=== PATIENT | female | born 1935 | race Caucasian/White ===

== ENCOUNTER → 2022-09-14 | Outpatient (CLI) | payer MEDICARE ==
--- NOTE | 2022-09-14 14:30 | US ---
EXAMINATION TYPE: US venous doppler duplex LE LT DATE OF EXAM: 09/14/2022 2:12 PM COMPARISON: NONE CLINICAL HISTORY: Left lower extremity swelling SIDE PERFORMED: Left TECHNIQUE: The lower extremity deep venous system is examined utilizing real time linear array sonog richard with graded compression, doppler sonography and color-flow sonography. VESSELS IMAGED: Common Femoral Vein Deep Femoral Vein Greater Saphenous Vein * Femoral Vein Popliteal Vein Small Saphenous Vein * Proximal Calf Veins (* superficial vessels) Left Leg: Negative for DVT Grayscale, color doppler, spectral doppler imaging performed of the deep veins of the left lower extr emity. There is normal flow, compressibility, vascular waveforms. IMPRESSION: No ultrasound evidence for acute DVT in the left lower extremity.
== END | disposition home or self-care (01) ==
LOC: RADUSWWP 13:08
PROVIDERS: ATTEND Family Medicine
DX: R22.42 Localized swelling, mass and lump, left lower limb (principal)

== ENCOUNTER 2024-03-28 14:54 | Emergency (ER) | payer MEDICARE ==
--- NOTE | 2024-03-28 15:42 | ED ---
Fall HPI - General Chief Complaint: Fall Stated Complaint: Fall, no thinners Time Seen by Provider: 03/28/24 15:18 Source: patient, RN notes reviewed Mode of arrival: ambulatory - History of Present Illness Initial Comments: Patient is an 88-year-old female presents emergency department chief complaint of a fall. Patient states that she was outside gardening when she tripped over brick pavers hitting her head and falling on her right wrist. Patient denies loss of consciousness, blurry vision, double vision, headaches, nausea or vomiting. Patient is not on any blood thinners. She is complaining of left- sided rib pain and mild shortness of breath in addition to right-sided thumb and wrist pain. patient's last tetanus vaccine was approximately a few months ago - Related Data Allergies Allergy/AdvReac Type Severity Reaction Status Date / Time No Known Allergies Allergy Verified 03/28/24 15:02 Review of Systems ROS Statement: Those systems with pertinent positive or pertinent negative responses have been documented in the HPI. ROS Other: All systems not noted in ROS Statement are negative. Past Medical History Additional Past Medical History / Comment(s): slight deafness History of Any Multi-Drug Resistant Organisms: None Reported Past Surgical History: Hysterectomy Past Psychological History: No Psychological Hx Reported Smoking Status: Former smoker Past Alcohol Use History: Occasional Past Drug Use History: None Reported General Exam Limitations: no limitations General appearance: alert, in no apparent distress Head exam: Present: atraumatic, normocephalic, normal inspection, other (1 cm skin avulsion, non ammendable to suture or staple repair due to size) Eye exam: Present: normal appearance, PERRL, EOMI. Absent: scleral icterus, conjunctival injection, periorbital swelling ENT exam: Present: normal exam, mucous membranes moist Neck exam: Present: normal inspection. Absent: tenderness, meningismus, lymphadenopathy Respiratory exam: Present: normal lung sounds bilaterally, chest wall tenderness (lateral). Absent: respiratory distress, wheezes, rales, rhonchi, stridor, decreased breath sounds Cardiovascular Exam: Present: regular rate, normal rhythm, normal heart sounds. Absent: systolic murmur, diastolic murmur, rubs, gallop, clicks GI/Abdominal exam: Present: soft, normal bowel sounds. Absent: distended, tenderness, guarding, rebound, rigid Right Forearm Wrist exam: Present: tenderness, swelling, ecchymosis Hand Wrist exam: Present: tenderness, swelling, laceration (2 avuslion injuries of first digit), ecchymosis Neuro motor exam: Present: wrist extension intact, thumb opposition intact Vascular: Absent: vascular compromise Back exam: Present: normal inspection Neurological exam: Present: alert, oriented X3, CN II-XII intact Psychiatric exam: Present: normal affect, normal mood Skin exam: Present: warm, dry, intact, normal color. Absent: rash Course Vital Signs 03/28/24 03/28/24 14:56 19:31 Temperature 97.9 F 98.1 F Pulse Rate 93 81 Respiratory 18 16 Rate Blood Pressure 153/68 156/87 O2 Sat by Pulse 96 98 Oximetry Medical Decision Making - Medical Decision Making Was pt. sent in by a medical professional or institution (, PA, CHIEF DIETITIAN, urgent care, hospital, or snf...) When possible be specific @ -No Did you speak to anyone other than the patient for history (EMS, parent, family, police, friend...)? What history was obtained from this source @ -No Did you review nursing and triage notes (agree or disagree)? Why? @ -I reviewed and agree with nursing and triage notes Were old charts reviewed (outside hosp., previous admission, EMS record, old EKG, old radiological studies, urgent care reports/EKG's, snf records)? Report findings @ -No old charts were reviewed Differential Diagnosis (chest pain, altered mental status, abdominal pain women, abdominal pain men, vaginal bleeding, weakness, fever, dyspnea, syncope, headache, dizziness, GI bleed, back pain, seizure, CVA, palpatations, mental health, musculoskeletal)? @ -Differential Musculoskeletal Muscular strain, contusion, ligament sprain, fracture, arthritis, septic arthritis, bursitis, cellulitis, muscle spasm, nerve compression, DVT, arterial occlusion, herpes zoster, electrolyte abnormality, tumor.... This is not meant to be in all inclusive list EKG interpreted by me (3pts min.). @ -None X-rays interpreted by me (1pt min.). @ -Chest xray with left ribs reveals no evidence for lung contusion or pneumothorax, couple mildly displaced left rib fractures suggested. xray of the right wrist and hand no evidence of fracture or dislocation, osteoarthritic changes. CT interpreted by me (1pt min.). @ -CT of the brain without contrast reveals no evidence for intracranial abnormalities. U/S interpreted by me (1pt. min.). @ -None done What testing was considered but not performed or refused? (CT, X-rays, U/S, labs)? Why? @ -None What meds were considered but not given or refused? Why? @ -Patient was offered pain medication which she has declined at this time. Did you discuss the management of the patient with other professionals (professionals i.e. , PA, CHIEF DIETITIAN, lab, RT, psych nurse, social sciences department chair, shipping and receiving material handler, teacher, human resource officer, field case manager)? Give summary @ -No Was smoking cessation discussed for >3mins.? @ -No Was critical care preformed (if so, how long)? @ -No Were there social determinants of health that impacted care today? How? (Homelessness, low income, unemployed, alcoholism, drug addiction, transportation, low edu. Level, literacy, decrease access to med. care, [facility], rehab)? @ -No Was there de-escalation of care discussed even if they declined (Discuss DNR or withdrawal of care, Hospice)? DNR status @ -No What co-morbidities impacted this encounter? (DM, HTN, Smoking, COPD, CAD, Cancer, CVA, ARF, Chemo, Hep., AIDS, mental health diagnosis, sleep apnea, morbid obesity)? @ -None Was patient admitted / discharged? Hospital course, mention meds given and route, prescriptions, significant lab abnormalities, going to OR and other pertinent info. @ -Discharged. 88-year-old female chief complaint of a fall. On examination there is noted to be a 1 cm area of avulsion of the anterior scalp that is not amenable to suture repair or reshma due to signs of injury. Additionally patient has a avulsion injury to the right forearm measuring approximately 2 cm and additional avulsion measuring 1 cm. Area was thoroughly cleansed with sterile water and Steri-Strips were placed. Patient was sent for imaging of the right hand and wrist, CT of the head, and chest xray. Patient has chest wall tenderness to the lateral chest, no decrease in breath sounds auscultated. X-ray reveals mildly displaced left rib fractures, no acute modalities of x-ray of the hand wrist or CT. Patient was evaluated sepsis parameters and educated at bedside how to properly use. Recommend continue to use Tylenol and Motrin at home as needed for symptomatic relief. Patient was provided with a lidocaine patch. Recommend the patient follows up with her primary care provider in the next few days for reevaluation. Strict return parameters discussed at bedside with patient verbalized understanding. Case discussed with my attending Dr. Holman Undiagnosed new problem with uncertain prognosis? @ -No Drug Therapy requiring intensive monitoring for toxicity (Heparin, Nitro, Insulin, Cardizem)? @ -No Were any procedures done? @ -No Diagnosis/symptom? @ -Fall, contusion, left rib fracture, avulsion injury Acute, or Chronic, or Acute on Chronic? @ -Acute Uncomplicated (without systemic symptoms) or Complicated (systemic symptoms)? @ -Uncomplicated Side effects of treatment? @ -No Exacerbation, Progression, or Severe Exacerbation? @ -No Poses a threat to life or bodily function? How? (Chest pain, [place], [place], pneumonia, PE, COPD, DKA, ARF, appy, cholecystitis, CVA, Diverticulitis, Homicidal, Nomei cidal, threat to staff... and all critical care pts) @ -No Disposition Clinical Impression: Fall, Ribs, multiple fractures Disposition: HOME SELF-CARE Condition: Good Instructions (If sedation given, give patient instructions): Fall Prevention for Older Adults (ED) Additional Instructions: return to emergency department if symptoms worsen or do not improve. Continue to take Tylenol Motrin at home as needed for pain relief. Use incentive spirometer as described. Is patient prescribed a controlled substance at d/c from ED?: No Referrals: Syed Campoverde MD [Primary Care Provider] - 1-2 days Time of Disposition: 19:23
--- NOTE | 2024-03-28 18:07 | CT ---
EXAMINATION TYPE: CT brain wo con CT DLP: 1231.4 mGycm, Automated exposure control for dose reduction was used. DATE OF EXAM: 03/28/2024 3:56 PM COMPARISON: None.. CLINICAL INDICATION:Female, 88 years old with history of fall, laceration, fall, laceration TECHNIQUE: Brain: Axial CT images of the brain were obtained with coronal and sagittal reformats created and rev iewed. Contrast used: None. Oral contrast used: None. FINDINGS: Extra-axial spaces: No abnormal extra-axial fluid collections. Basilar cisterns are patent. Ventricular system: Ventricles appear dilated in proportion to the degree of cerebral atrophy. Cerebral parenchyma: No increased attenuation to suggest acute intraparenchymal hemorrhage. The gra y-white matter interface appears maintained. Moderate to severe generalized brain atrophy. Scattere d hypoattenuating areas are seen within the cerebral white matter, nonspecific but most often seen wi th chronic microvascular ischemic changes; moderate/severe in degree. Cerebellum: No acute abnormality. Mass effect: No evidence of mass effect or midline shift. Intracranial vasculature: Unremarkable Soft tissues: No acute or concerning abnormality. Visualized orbits: Orbital contents appear grossly intact. Radiodensities along the globes likely s equela of previous ophthalmologic surgery. Calvarium/osseous structures: No evidence of calvarial fracture. Paranasal sinuses and mastoid air cells: Clear. Other: Small subcutaneous scalp contusion suggested near the skull vertex on the left anteriorly, wit h possible couple foci of gas. MRI is more sensitive for detecting acute processes such as infarct, and may be considered if clinica lly warranted. IMPRESSION: * No acute intracranial CT abnormality. * Small left superior scalp contusion. * Atrophy and chronic microvascular ischemic changes.
[2024-03-28] MEDS: LIDOCAINE 4% PATCH TOPICAL ONE (19:28)
[2024-03-28 19:32] VITALS: BP 156/87; PULSE 81; RESP 16; TEMP 98.1
--- NOTE | 2024-03-28 20:04 | XR ---
EXAMINATION TYPE: XR hand complete RT DATE OF EXAM: 03/28/2024 4:07 PM CLINICAL INDICATION:Female, 88 years old with history of fall, pain; [facility] COMPARISON: None TECHNIQUE: 3 views right hand, 4 views right wrist.1 FINDINGS: Generalized osteopenia. Generally moderate osteoarthritic changes throughout, however appears greates t at the distal interphalangeal joints (somewhat sparing the fourth digit), throughout the proximal i nterphalangeal joints, and throughout the thumb and lateral wrist. The basal joint of the thumb appea rs particularly involved and there is near-complete loss of first CMC joint space and mild subluxatio n of the base of the first metacarpal. The rest of the carpal bones appear to show mild osteoarthriti c changes, without fracture or dislocation demonstrated. Faint calcification of the triangular fibroc artilage is suggested. Mild narrowing of the radiocarpal joint and distal radioulnar joint. No osseou s erosions are seen. Unremarkable soft tissues. No radiopaque foreign body is seen. IMPRESSION: 1. No evidence of acute fracture or dislocation in the right wrist or hand. 2. Osteopenia and diffuse osteoarthritic changes.
--- NOTE | 2024-03-28 20:06 | XR ---
EXAMINATION TYPE: XR wrist complete RT DATE OF EXAM: 03/28/2024 4:07 PM CLINICAL INDICATION:Female, 88 years old with history of fall, pain; [facility] COMPARISON: None. TECHNIQUE: 3 views right hand, 4 views right wrist. FINDINGS: Generalized osteopenia. Generally moderate osteoarthritic changes throughout, however appears greates t at the distal interphalangeal joints (somewhat sparing the fourth digit), throughout the proximal i nterphalangeal joints, and throughout the thumb and lateral wrist. The basal joint of the thumb appea rs particularly involved and there is near-complete loss of first CMC joint space and mild subluxatio n of the base of the first metacarpal. The rest of the carpal bones appear to show mild osteoarthriti c changes, without fracture or dislocation demonstrated. Faint calcification of the triangular fibroc artilage is suggested. Mild narrowing of the radiocarpal joint and distal radioulnar joint. No osseou s erosions are seen. Unremarkable soft tissues. No radiopaque foreign body is seen. IMPRESSION: 1. No evidence of acute fracture or dislocation in the right wrist or hand. 2. Osteopenia and diffuse osteoarthritic changes.
--- NOTE | 2024-03-28 20:12 | XR ---
EXAMINATION TYPE: XR ribs LT w pa chest xray DATE OF EXAM: 03/28/2024 4:07 PM CLINICAL INDICATION:Female, 88 years old with history of fall, pain; [facility] COMPARISON: None TECHNIQUE: Frontal and oblique views of the left ribs with frontal chest radiograph. FINDINGS: Sensitivity of plain film examination is limited. If there is persistent concern for occult pathology , CT would be advised. Chronic interstitial changes in the lungs without focal consolidation, effusion, or pneumothorax. Cardiomediastinal silhouette appears normal in size. Partially calcified aorta. Mild degenerative changes are present in the shoulders and spine. There appear to be at least 2 minim ally displaced rib fractures on the left, approximately seventh and eighth ribs laterally. No soft tissue abnormality is seen. IMPRESSION: 1. No plain film evidence of significant lung contusion or pneumothorax. 2. A couple of mildly displaced left rib fractures are suggested.
== END 2024-03-28 19:32 | disposition home or self-care (01) ==
LOC: EC 14:54
DX: S22.32XA Fracture of one rib, left side, initial encounter for closed fracture (principal); S61.101A Unspecified open wound of right thumb with damage to nail, initial encounter; Z87.891 Personal history of nicotine dependence; W01.198A Fall on same level from slipping, tripping and stumbling with subsequent striking against other object, initial encounter; Y93.H2 Activity, gardening and landscaping
CPT/HCPCS: 70450; 99284

== ENCOUNTER 2024-04-08 17:08 | Inpatient (IN) | payer MEDICARE ==
[2024-04-08 17:46] LABS: HCT 35.4 % (34.0-46.0); HGB 11.4 gm/dL (11.4-16.0); MCH 29.4 pg (25.0-35.0); MCHC 32.2 g/dL (31.0-37.0); MCV 91.4 fL (80.0-100.0); Mean Platelet Volume 8.2; Platelet Count 467 k/uL (150-450); RBC 3.88 m/uL (3.80-5.40); RDW 13.2 % (11.5-15.5); WBC 36.2 k/uL (3.8-10.6)
--- NOTE | 2024-04-08 17:50 | ED ---
Weakness HPI - General Chief complaint: Weakness Stated complaint: Weakness,Failure to thrive Time Seen by Provider: 04/08/24 17:10 Source: patient, family, EMS, RN notes reviewed Mode of arrival: EMS - History of Present Illness Initial comments: 88-year-old female who fell about 2 weeks ago and sustained some bruising to her ribs who was brought in today at the behest of a neighbor for evaluation of weakness failure to thrive decreased oral intake suspected dehydration no c omplaints of cough shortness of breath fever chills sweats no nausea vomiting she states she has not had a bowel movement for 4 days no dysuria. Per the neighbor came in with the patient she is just demonstrating decreased inability to perform activities of daily living.. The patient was somewhat confused on the year on initial evaluation however she did recall it was finally 2023. He apparently was somewhat confused as to how long ago her fall was. MD Complaint: generalized weakness - Related Data Allergies Allergy/AdvReac Type Severity Reaction Status Date / Time No Known Allergies Allergy Verified 04/08/24 17:23 Review of Systems ROS Statement: Those systems with pertinent positive or pertinent negative responses have been documented in the HPI. ROS Other: All systems not noted in ROS Statement are negative. Past Medical History Additional Past Medical History / Comment(s): slight deafness History of Any Multi-Drug Resistant Organisms: None Reported Past Surgical History: Hysterectomy Past Psychological History: No Psychological Hx Reported Smoking Status: Former smoker Past Alcohol Use History: Occasional Past Drug Use History: None Reported General Exam - General Exam Comments Initial Comments: This is a well-developed thin appearing female who is awake alert oriented x 4 General appearance: alert, in no apparent distress Head exam: Present: atraumatic, normocephalic, normal inspection Eye exam: Present: normal appearance, PERRL, EOMI. Absent: scleral icterus, conjunctival injection, periorbital swelling ENT exam: Present: mucous membranes dry Neck exam: Present: normal inspection, full ROM, other (No stridor JVD or bruits). Absent: tenderness, meningismus, lymphadenopathy Respiratory exam: Present: normal lung sounds bilaterally, chest wall tenderness (Mild tenderness to palpation over the bilateral lower lateral ribs no step-off or crepitation). Absent: respiratory distress, wheezes, rales, rhonchi, stridor Cardiovascular Exam: Present: regular rate, normal rhythm, normal heart sounds. Absent: systolic murmur, diastolic murmur, rubs, gallop, clicks GI/Abdominal exam: Present: soft, normal bowel sounds. Absent: distended, tenderness, guarding, rebound, rigid Extremities exam: Present: normal inspection, full ROM, normal capillary refill. Absent: tenderness, pedal edema, joint swelling, calf tenderness Back exam: Present: normal inspection Neurological exam: Present: alert, oriented X3, CN II-XII intact Psychiatric exam: Present: normal affect, normal mood Skin exam: Present: warm, dry, intact, normal color. Absent: rash Course Vital Signs 04/08/24 17:21 Temperature 98.5 F Pulse Rate 95 Respiratory 16 Rate Blood Pressure 128/58 O2 Sat by Pulse 95 Oximetry - Reevaluation(s) Reevaluation #1: 04/08/24 20:46 Further information per the patient and neighbors she has been constipated for the last 4 days but also additionally she has had decreased oral intake the last 4 days at least. Reevaluation #2: 04/08/24 20:46 Imaging of the chest reveals no definitive evidence of infiltrates or is gas seen between the liver and diaphragm perforated viscus cannot be ruled out CT is going to be done. EKG Findings - EKG Results: EKG: interpreted by ERMD (EKG interpreted by me sinus rhythm with occasional supraventricular premature complexes rate 94 IN interval 152 QRS duration 80 QT/QTc 340/[address]-T wave changes) Medical Decision Making - Medical Decision Making I did discuss findings with the patient and 3 neighbors that were present. Patient does demonstrate evidence of acute kidney injury/failure with dehydration. She also has leukocytosis but no evidence of infectious process at this time. Patient will be admitted for IV hydration consultation by nephrology. I did discuss the case with Dr. Urena. Was pt. sent in by a medical professional or institution (, PA, MACHINE INKER, urgent care, hospital, or [place] [facility] facility...) When possible be specific @ -No Did you speak to anyone other than the patient for history (EMS, parent, family, police, friend...)? What history was obtained from this source @ -No Did you review nursing and triage notes (agree or disagree)? Why? @ -I reviewed and agree with nursing and triage notes Were old charts reviewed (outside hosp., previous admission, EMS record, old EKG, old radiological studies, urgent care reports/EKG's, [place] [facility] facility records)? Report findings @ -No old charts were reviewed Differential Diagnosis (chest pain, altered mental status, abdominal pain women, abdominal pain men, vaginal bleeding, weakness, fever, dyspnea, syncope, headache, dizziness, GI bleed, back pain, seizure, CVA, palpatations, mental health, musculoskeletal)? @ -Notes, dehydration, failure to thrive, chest wall pain EKG interpreted by me (3pts min.). @ -As above EKG interpreted by me sinus rhythm with occasional supraventricular premature complexes rate 94 IN interval 152 QRS duration 80 QT/QTc 340/[address]-T wave changes X-rays interpreted by me (1pt min.). @ -Chest x-ray interpreted by me no acute process seen in the chest however there is evidence of possible superimposition of the bowel versus free air under the right hemidiaphragm I did compare this with old imaging there is fracture noted in the left ribs in the past CT interpreted by me (1pt min.). @ -CT of the abdomen and pelvis interpreted by me patient has evidence of free air under the diaphragm perforated viscus with air around the duodenum. Also evidence of subcapsular hematoma of the spleen likely from the previous trauma. U/S interpreted by me (1pt. min.). @ -None done What testing was considered but not performed or refused? (CT, X-rays, U/S, labs)? Why? @ -None What meds were considered but not given or refused? Why? @ -None Did you discuss the management of the patient with other professionals (professionals i.e. , PA, MACHINE INKER, lab, RT, psych nurse, criminal justice social worker, senior manager mergers & acquisitions, teacher, campus safety officer, case work aide)? Give summary @ -Per Tommy, Dr. Urena and Was smoking cessation discussed for >3mins.? @ -No Was critical care preformed (if so, how long)? @ -45 minutes Were there social determinants of health that impacted care today? How? (Homelessness, low income, unemployed, alcoholism, drug addiction, transportation, low edu. Level, literacy, decrease access to med. care, shelter, rehab)? @ -Patient lives alone Was there de-escalation of care discussed even if they declined (Discuss DNR or withdrawal of care, Hospice)? DNR status @ -No What co-morbidities impacted this encounter? (DM, HTN, Smoking, COPD, CAD, Cancer, CVA, ARF, Chemo, Hep., AIDS, mental health diagnosis, sleep apnea, morbid obesity)? @ -None Was patient admitted / discharged? Hospital course, mention meds given and route, prescriptions, significant lab abnormalities, going to OR and other pertinent info. @ -Hospital course patient was admitted for emergent surgery tonight patient will be admitted with consultation by Dr. Urena for medicine as well as Dr. Min for nephrology and Dr. Don for an intensive care Undiagnosed new problem with uncertain prognosis? @ -Perforated duodenal ulcer with free air, acute kidney injury with dehydration Drug Therapy requiring intensive monitoring for toxicity (Heparin, Nitro, Insulin, Cardizem)? @ -No Were any procedures done? @ -No Diagnosis/symptom? @ -Acute perforated viscus, acute kidney injury, dehydration, subcapsular hematoma of the spleen Acute, or Chronic, or Acute on Chronic? @ -Acute Uncomplicated (without systemic symptoms) or Complicated (systemic symptoms)? @ -Complicated Side effects of treatment? @ -No Exacerbation, Progression, or Severe Exacerbation? @ -No Poses a threat to life or bodily function? How? (Chest pain, USA, MA, pneumonia, PE, COPD, DKA, ARF, appy, cholecystitis, CVA, Diverticulitis, Homicidal, Suicidal, threat to staff... and all critical care pts) @ -10 she will - Lab Data Result diagrams: 04/08/24 17:34 04/08/24 17:34 Lab Results 04/08/24 04/08/24 04/08/24 Range/Units 17:34 17:34 17:34 WBC 36.2 H (3.8-10.6) k/uL RBC 3.88 (3.80-5.40) m/uL Hgb 11.4 (11.4-16.0) gm/dL Hct 35.4 (34.0-46.0) % MCV 91.4 (80.0-100.0) fL MCH 29.4 (25.0-35.0) pg MCHC 32.2 (31.0-37.0) g/dL RDW 13.2 (11.5-15.5) % Plt Count 467 H (150-450) k/uL MPV 8.2 Neutrophils % (Manual) 91 % Band Neuts % (Manual) 3 % Lymphocytes % (Manual) 2 % Monocytes % (Manual) 5 % Neutrophils # (Manual) 34.00 H (1.3-7.7) k/uL Lymphocytes # (Manual) 0.72 L (1.0-4.8) k/uL Monocytes # (Manual) 1.81 H (0-1.0) k/uL Nucleated RBCs 0 (0-0) /100 WBC Manual Slide Review Performed Sodium 132 L (137-145) mmol/L Potassium 4.3 (3.5-5.1) mmol/L Chloride 99 (98-107) mmol/L Carbon Dioxide 18 L (22-30) mmol/L Anion Gap 15 mmol/L BUN 118 H* (7-17) mg/dL Creatinine 3.27 H (0.52-1.04) mg/dL Est GFR (CKD-EPI)AfAm 14 (>60 ml/min/1.73 sqM) Est GFR (CKD-EPI)NonAf 12 (>60 ml/min/1.73 sqM) Glucose 128 H (74-99) mg/dL Calcium 8.5 (8.4-10.2) mg/dL Magnesium 2.0 (1.6-2.3) mg/dL Total Bilirubin 0.7 (0.2-1.3) mg/dL AST 44 H (14-36) U/L ALT 30 (4-34) U/L Alkaline Phosphatase 106 (38-126) U/L Ammonia <9 (<30) umol/L Creatine Kinase 31 (30-135) U/L Troponin I (0.000-0.034) ng/mL Total Protein 5.1 L (6.3-8.2) g/dL Albumin 2.6 L (3.5-5.0) g/dL Lipase 69 (23-300) U/L Urine Color Urine Appearance (Clear) Urine pH (5.0-8.0) Ur Specific [place] (1.001-1.035) Urine Protein (Negative) Urine Glucose (UA) (Negative) Urine Ketones (Negative) Urine Blood (Negative) Urine Nitrite (Negative) Urine Bilirubin (Negative) Urine Urobilinogen (<2.0) mg/dL Ur Leukocyte Esterase (Negative) Influenza Type A (PCR) (Not Detectd) Influenza Type B (PCR) (Not Detectd) RSV (PCR) (Not Detectd) SARS-CoV-2 (PCR) (Not Detectd) 04/08/24 04/08/24 04/08/24 Range/Units 17:34 17:39 18:30 WBC (3.8-10.6) k/uL RBC (3.80-5.40) m/uL Hgb (11.4-16.0) gm/dL Hct (34.0-46.0) % MCV (80.0-100.0) fL MCH (25.0-35.0) pg MCHC (31.0-37.0) g/dL RDW (11.5-15.5) % Plt Count (150-450) k/uL MPV Neutrophils % (Manual) % Band Neuts % (Manual) % Lymphocytes % (Manual) % Monocytes % (Manual) % Neutrophils # (Manual) (1.3-7.7) k/uL Lymphocytes # (Manual) (1.0-4.8) k/uL Monocytes # (Manual) (0-1.0) k/uL Nucleated RBCs (0-0) /100 WBC Manual Slide Review Sodium (137-145) mmol/L Potassium (3.5-5.1) mmol/L Chloride (98-107) mmol/L Carbon Dioxide (22-30) mmol/L Anion Gap mmol/L BUN (7-17) mg/dL Creatinine (0.52-1.04) mg/dL Est GFR (CKD-EPI)AfAm (>60 ml/min/1.73 sqM) Est GFR (CKD-EPI)NonAf (>60 ml/min/1.73 sqM) Glucose (74-99) mg/dL Calcium (8.4-10.2) mg/dL Magnesium (1.6-2.3) mg/dL Total Bilirubin (0.2-1.3) mg/dL AST (14-36) U/L ALT (4-34) U/L Alkaline Phosphatase (38-126) U/L Ammonia (<30) umol/L Creatine Kinase (30-135) U/L Troponin I <0.012 (0.000-0.034) ng/mL Total Protein (6.3-8.2) g/dL Albumin (3.5-5.0) g/dL Lipase (23-300) U/L Urine Color Colorless Urine Appearance Clear (Clear) Urine pH 5.5 (5.0-8.0) Ur Specific [place] 1.012 (1.001-1.035) Urine Protein Trace H (Negative) Urine Glucose (UA) Negative (Negative) Urine Ketones Negative (Negative) Urine Blood Negative (Negative) Urine Nitrite Negative (Negative) Urine Bilirubin Negative (Negative) Urine Urobilinogen <2.0 (<2.0) mg/dL Ur Leukocyte Esterase Negative (Negative) Influenza Type A (PCR) Not Detected (Not Detectd) Influenza Type B (PCR) Not Detected (Not Detectd) RSV (PCR) Not Detected (Not Detectd) SARS-CoV-2 (PCR) Not Detected (Not Detectd) Critical Care Time Critical Care Time: Yes Total Critical Care Time: 45 Disposition Clinical Impression: Perforated abdominal viscus, Acute kidney injury, Dehydration, Hematoma of spleen without rupture of capsule Disposition: ADMITTED IP TO THIS [facility] Condition: Serious Referrals: Syed Campoverde MD [Primary Care Provider] - 1-2 days Time of Disposition: 22:30 Decision Date: 04/08/24 Decision Time: 22:30
[2024-04-08 18:05] LABS: ALT 30 U/L (4-34); AST 44 U/L (14-36); African American GFR (CKD) 14 (>60 ml/min/1.73 sqM); Albumin 2.6 g/dL (3.5-5.0); Alkaline Phosphatase 106 U/L (38-126); Anion Gap 15 mmol/L; Calcium 8.5 mg/dL (8.4-10.2); Carbon Dioxide 18 mmol/L (22-30); Chloride 99 mmol/L (98-107); Creatine Kinase 31 U/L (30-135); Glucose 128 mg/dL (74-99); Lipase 69 U/L (23-300); Non-African American GFR(CKD) 12 (>60 ml/min/1.73 sqM); Potassium 4.3 mmol/L (3.5-5.1); Sodium 132 mmol/L (137-145); Total Bilirubin 0.7 mg/dL (0.2-1.3); Total Protein 5.1 g/dL (6.3-8.2)
[2024-04-08 18:10] LABS: Blood Urea Nitrogen 118 mg/dL (7-17)
[2024-04-08 18:12] LABS: Band Neutrophils % 3 %; Lymphocytes # (M) 0.72 k/uL (1.0-4.8); Monocytes # (M) 1.81 k/uL (0-1.0); Neutrophils % (M) 91 %; Nucleated Red Blood Cells 0 /100 WBC (0-0); Total Cells Counted 200
--- NOTE | 2024-04-08 18:23 | XR ---
EXAMINATION TYPE: XR chest 2V DATE OF EXAM: 04/08/2024 COMPARISON: NONE HISTORY: Shortness of breath TECHNIQUE: Frontal and lateral views of the chest are obtained. FINDINGS: Scattered senescent parenchymal changes noted. Hyperinflation compatible with COPD. Lucency underneath the right hemidiaphragm. Free air is not excluded. Consider CT to rule out free in traperitoneal air. No evidence for infiltrate. No evidence for atelectasis. Heart size is stable. Mediastinal structures are stable and grossly unremarkable. No evidence for hilar prominence. Degenerative changes dorsal spine. IMPRESSION: 1. No evidence for acute pulmonary disease. 2.Lucency underneath the right hemidiaphragm. Free air is not excluded. Consider CT to rule out free intraperitoneal air.
[2024-04-08 19:03] LABS: Appearance,Urine Clear (Clear); Bilirubin,Urine Negative (Negative); Blood,Urine Negative (Negative); Color,Urine Colorless; Glucose,Urine (UA) Negative (Negative); Ketones,Urine Negative (Negative); Leukocyte Esterase,Urine Negative (Negative); Nitrite,Urine Negative (Negative); PH, Urine 5.5 (5.0-8.0); Protein,Urine Trace (Negative); Specific Gravity,Urine 1.012 (1.001-1.035); Urobilinogen,Urine <2.0 mg/dL (<2.0)
[2024-04-08] MEDS: SODIUM CHLORIDE 0.9% 1,000 ML IV STA ×3 (19:10→19:12)
--- NOTE | 2024-04-08 19:57 | CT ---
EXAMINATION TYPE: CT brain wo con DATE OF EXAM: 04/08/2024 COMPARISON: 03/28/2024 HISTORY: AMS. CT DLP: 2383.[address] of the brain was performed. The ventricles, basal cisterns and sulci overlying the cerebral convexities demonstrate mild enlargem ent. There is no evidence for intracranial hemorrhage or sulcal effacement. There is decreased attenuation about the periventricular white matter and deep white matter of both c erebral hemispheres, compatible with chronic small vessel ischemia. Differential diagnosis does inclu de demyelination. No mass effects are seen.No midline shift. Osseous calvarium is intact. If symptoms persist consider MRI. IMPRESSION: 1. Age related atrophic and chronic small vessel ischemic change without acute intracranial process s een at this time.
[2024-04-08] MEDS: HYDROmorphone 0.5 MG/0.5 ML SYRINGE IVP STA (20:51)
--- NOTE | 2024-04-08 21:16 | CT ---
EXAMINATION TYPE: CT abdomen pelvis wo con DATE OF EXAM: 04/08/2024 COMPARISON: None HISTORY: Abnormality found on prior XR. CT DLP: 407.5 mGycm Examination of the solid and hollow viscera is limited given the lack of contrast. FINDINGS: LUNG BASES: No evidence for nodule. No evidence for infiltrate. LIVER/GB: The gallbladder is distended at 9 cm. No space-occupying hepatic lesion. PANCREAS: No pancreatic mass identified. No inflammatory process seen. SPLEEN: Fluid adjacent to the spleen somewhat still is of increased density and Hounsfield unit measu rement of greater than 40. Subcapsular hematoma not excluded. ADRENALS: No adrenal nodules identified. No evidence for thickening. KIDNEYS: No evidence for renal mass. No nephrolithiasis. No hydronephrosis. BOWEL: There is evidence of pneumoperitoneum underneath the right hemidiaphragm. On axial image 50 of 150 there appears to be air adjacent to the duodenum and the findings may be secondary to perforated duodenal ulcer. There is evidence of ascites about the liver edge. Distended small bowel may reflect ileus. Sigmoid diverticulosis without diverticulitis. Large fixed hiatal hernia. Lymph nodes: No evidence for adenopathy greater than 1 cm. Abdominal aorta: Atheromatous changes seen. No evidence for aneurysm. Genital organs: No significant abnormality. Other: Couple of lower left-sided rib fractures. IMPRESSION: 1. Evidence of pneumoperitoneum which may be secondary to perforated duodenal ulcer. See above discus terri. 2. Ascites. 3. Fluid adjacent to the spleen some of which is of increased attenuation in Hounsfield unit measurem ent of greater than 40 suggesting hemorrhagic contents and therefore splenic subcapsular hematoma is a strong consideration. There are a couple of a fractured adjacent ribs. The entirety of the ribs are not imaged.
--- NOTE | 2024-04-08 21:59 | US ---
EXAMINATION TYPE: US renals and bladder DATE OF EXAM: 04/08/2024 COMPARISON: NONE CLINICAL INDICATION: Female, 88 years old with history of jesús; JESÚS EXAM MEASUREMENTS: Right Kidney: 10.4 x 3.0 x 3.7 cm Left Kidney: 9.3 x 4.3 x 3.2 cm Right Kidney: Anechoic area adjacent to lower pole 3.9 x 3.6 x 2.8 cm Left Kidney: No hydronephrosis or masses seen Bladder: Anechoic Bilateral Jets seen: yes Fluid adjacent to spleen. There is no evidence for hydronephrosis at this point in time. No nephrolithiasis is seen. No mary s are identified. The urinary bladder is anechoic. Bilateral ureteral jets are seen. IMPRESSION: 1. Fluid seen adjacent to the spleen. 2. Cyst lower pole right kidney.
[2024-04-08] MEDS ORDERED: NALOXONE 0.4 MG/ML 1 ML VIAL IV PRN (23:26)
--- NOTE | 2024-04-08 23:44 | P.GSHP ---
History of Present Illness H&P Date: 04/08/24 88-year-old female who fell about 2 weeks ago and sustained some bruising to her ribs who was brought in today at the behest of a neighbor for evaluation of weakness failure to thrive decreased oral intake suspected dehydration no complaints of cough shortness of breath fever chills sweats no nausea vomiting she states she has not had a bowel movement for 4 days no dysuria. Per the neighbor came in with the patient she is just demonstrating decreased inability to perform activities of daily living.. The patient was somewhat confused on the year on initial evaluation however she did recall it was finally 2023. He apparently was somewhat confused as to how long ago her fall was. CT-AP shows pneumoperitoneum, free fluid, possible splenic laceration and left sided rib fractures Review of Systems ROS Statement: Those systems with pertinent positive or pertinent negative responses have been documented in the HPI. ROS Other: All systems not noted in ROS Statement are negative. Past Medical History Additional Past Medical History / Comment(s): slight deafness History of Any Multi-Drug Resistant Organisms: None Reported Past Surgical History: Hysterectomy Past Psychological History: No Psychological Hx Reported Smoking Status: Former smoker Past Alcohol Use History: Occasional Past Drug Use History: None Reported General Exam - General Exam Comments Initial Comments: This is a well-developed thin appearing female who is awake alert oriented x 4 General appearance: alert, in no apparent distress Head exam: Present: atraumatic, normocephalic, normal inspection Eye exam: Present: normal appearance, PERRL, EOMI. Absent: scleral icterus, conjunctival injection, periorbital swelling ENT exam: Present: mucous membranes dry Neck exam: Present: normal inspection, full ROM, other (No stridor JVD or bruits). Absent: tenderness, meningismus, lymphadenopathy Respiratory exam: Present: normal lung sounds bilaterally, chest wall tenderness (Mild tenderness to palpation over the bilateral lower lateral ribs no step-off or crepitation). Absent: respiratory distress, wheezes, rales, rhonchi, stridor Cardiovascular Exam: Present: regular rate, normal rhythm, normal heart sounds. Absent: systolic murmur, diastolic murmur, rubs, gallop, clicks GI/Abdominal exam: Present: soft, normal bowel sounds. Absent: distended, tenderness, guarding, rebound, rigid Extremities exam: Present: normal inspection, full ROM, normal capillary refill. Absent: tenderness, pedal edema, joint swelling, calf tenderness Back exam: Present: normal inspection Neurological exam: Present: alert, oriented X3, CN II-XII intact Psychiatric exam: Present: normal affect, normal mood Skin exam: Present: warm, dry, intact, normal color. Absent: rash A/P 1. Found Down 2. Pneumoperitoneum with likely perforated ulcer 3. Splenic Subcapsular Hematoma 4. Left Sided Rib Fractures OR for exploratory laparotomy Past Medical History Additional Past Medical History / Comment(s): slight deafness History of Any Multi-Drug Resistant Organisms: None Reported Past Surgical History: Hysterectomy Past Psychological History: No Psychological Hx Reported Smoking Status: Former smoker Past Alcohol Use History: Occasional Past Drug Use History: None Reported Medications and Allergies Allergies Allergy/AdvReac Type Severity Reaction Status Date / Time No Known Allergies Allergy Verified 04/08/24 17:23 Surgical - Exam Vital Signs Temp Pulse Resp BP Pulse Ox 98.5 F 95 16 128/58 95 04/08/24 17:21 04/08/24 17:21 04/08/24 17:21 04/08/24 17:21 04/08/24 17:21 Results - Labs 04/08/24 17:34 04/08/24 17:34 Abnormal Lab Results - Last 24 Hours (Table) 04/08/24 04/08/24 04/08/24 Range/Units 17:34 17:34 18:30 WBC 36.2 H (3.8-10.6) k/uL Plt Count 467 H (150-450) k/uL Neutrophils # (Manual) 34.00 H (1.3-7.7) k/uL Lymphocytes # (Manual) 0.72 L (1.0-4.8) k/uL Monocytes # (Manual) 1.81 H (0-1.0) k/uL Sodium 132 L (137-145) mmol/L Carbon Dioxide 18 L (22-30) mmol/L BUN 118 H* (7-17) mg/dL Creatinine 3.27 H (0.52-1.04) mg/dL Glucose 128 H (74-99) mg/dL AST 44 H (14-36) U/L Total Protein 5.1 L (6.3-8.2) g/dL Albumin 2.6 L (3.5-5.0) g/dL Urine Protein Trace H (Negative) Diabetes panel 04/08/24 Range/Units 17:34 Sodium 132 L (137-145) mmol/L Potassium 4.3 (3.5-5.1) mmol/L Chloride 99 (98-107) mmol/L Carbon Dioxide 18 L (22-30) mmol/L BUN 118 H* (7-17) mg/dL Creatinine 3.27 H (0.52-1.04) mg/dL Glucose 128 H (74-99) mg/dL Calcium 8.5 (8.4-10.2) mg/dL AST 44 H (14-36) U/L ALT 30 (4-34) U/L Alkaline Phosphatase 106 (38-126) U/L Total Protein 5.1 L (6.3-8.2) g/dL Albumin 2.6 L (3.5-5.0) g/dL Calcium panel 04/08/24 Range/Units 17:34 Calcium 8.5 (8.4-10.2) mg/dL Albumin 2.6 L (3.5-5.0) g/dL Pituitary panel 04/08/24 Range/Units 17:34 Sodium 132 L (137-145) mmol/L Potassium 4.3 (3.5-5.1) mmol/L Chloride 99 (98-107) mmol/L Carbon Dioxide 18 L (22-30) mmol/L BUN 118 H* (7-17) mg/dL Creatinine 3.27 H (0.52-1.04) mg/dL Glucose 128 H (74-99) mg/dL Calcium 8.5 (8.4-10.2) mg/dL Adrenal panel 04/08/24 Range/Units 17:34 Sodium 132 L (137-145) mmol/L Potassium 4.3 (3.5-5.1) mmol/L Chloride 99 (98-107) mmol/L Carbon Dioxide 18 L (22-30) mmol/L BUN 118 H* (7-17) mg/dL Creatinine 3.27 H (0.52-1.04) mg/dL Glucose 128 H (74-99) mg/dL Calcium 8.5 (8.4-10.2) mg/dL Total Bilirubin 0.7 (0.2-1.3) mg/dL AST 44 H (14-36) U/L ALT 30 (4-34) U/L Alkaline Phosphatase 106 (38-126) U/L Total Protein 5.1 L (6.3-8.2) g/dL Albumin 2.6 L (3.5-5.0) g/dL
[2024-04-08] MEDS: PIPERACILLIN-TAZOBACTAM 3.375 GM in SODIUM CHLORIDE 0.9% 100 ML IVPB STA (23:53)
[2024-04-09] MEDS: HYDROmorphone 0.5 MG/0.5 ML SYRINGE IVP STA (00:03)
[2024-04-09 01:02] LABS: Basophils % (A) 0 %; Eosinophils % (A) 0 %; HCT 45.4 % (34.0-46.0); HGB 14.1 gm/dL (11.4-16.0); Lymphocytes # (A) 0.9 k/uL (1.0-4.8); Lymphocytes % (A) 4 %; MCH 28.5 pg (25.0-35.0); MCHC 31.2 g/dL (31.0-37.0); MCV 91.6 fL (80.0-100.0); Mean Platelet Volume 7.9; Monocytes # (A) 0.8 k/uL (0-1.0); Monocytes % (A) 3 %; Neutrophils # (A) 20.7 k/uL (1.3-7.7); Neutrophils % (A) 92 %; Platelet Count 314 k/uL (150-450); RBC 4.96 m/uL (3.80-5.40); RDW 13.2 % (11.5-15.5); WBC 22.6 k/uL (3.8-10.6)
[2024-04-09] MEDS ORDERED: PROPOFOL 10 MG/ML 20 ML VIAL IV ONE (01:10)
[2024-04-09] MEDS ORDERED: DEXAMETHASONE SOD PHOSPHATE 4 MG/ML 1 ML VIAL ONE (01:10)
[2024-04-09] MEDS ORDERED: ROPIVACAINE 5 MG/ML 30 ML VIAL ONE (01:10)
[2024-04-09] MEDS ORDERED: ONDANSETRON 4 MG/2 ML VIAL ONE (01:10)
[2024-04-09] MEDS ORDERED: SUCCINYLCHOLINE CHLORIDE 200 MG/10 ML VIAL IV ONE (01:10)
[2024-04-09] MEDS ORDERED: fentaNYL (PF) 50 MCG/ML 2 ML AMP ONE (01:10)
[2024-04-09] MEDS ORDERED: SODIUM CHLORIDE 0.9% (PF) 10 ML VIAL ONE (01:10)
[2024-04-09] MEDS ORDERED: GLYCOPYRROLATE 0.2 MG/ML 2 ML VIAL ONE (01:10)
[2024-04-09] MEDS: SODIUM CHLORIDE 0.9% 1,000 ML IV ONE (01:10)
[2024-04-09] MEDS ORDERED: NEOSTIGMINE 1 MG/ML 10 ML VIAL ONE (01:10)
[2024-04-09] MEDS ORDERED: ROCURONIUM 10 MG/ML (5 ML VIAL) IV ONE (01:10)
[2024-04-09] MEDS: LACTATED RINGERS 1,000 ML IV ONE (02:13)
[2024-04-09 03:14] LABS: Glucose,Whole Blood 97 mg/dL (70-110)
--- NOTE | 2024-04-09 03:26 | P.OP ---
Date of Procedure: 04/09/24 Preoperative Diagnosis: Pneumoperitoneum Postoperative Diagnosis: Perforated Duodenal Ulcer Procedure(s) Performed: 1. Exploratory Laparotomy 2. Modified Lee Patch Anesthesia: MAC Surgeon: Varinder Sanders Pathology: none sent Condition: critical Disposition: ICU Indications for Procedure: This is an 88 year old female who was found down by her neighbors. She was brought to the ER. She had a CT-AP performed which showed pneumoperitoneum concerning for a perforated ulcer. The benefits, risks, and alternatives of surgery were explained to the patient and the patient agreed to proceed to surgery Operative Findings: Large Perforated Duodenal Ulcer Description of Procedure: The patient was brought to the operating suite and placed in the supine position. After Anesthesia was given was given and the patient was intubated, the patient was prepped and draped in the usual sterile fashion. A timeout was performed. A #10 blade was used to make a midline incision and bovie electrocautery was used to dissect down to fascia and peritoneum and abdominal cavity was entered. There was free fluid encountered. The abdomen was thoroughly irrigated. There was a large perforated ulcer noted in the first portion of the duodenum. The perforation closed with interrupted 2-0 silk suture and modified lee patch was performed with a piece of omentum. Anesthesia passed a nasogastric tube and the tube was in good place. The abdomen was then again irrigated. A#19 F SHRUTHI was placed next to the repair and secured in place with a 2-0 silk. The fascia was closed with a looped #0 PDS. Skin reshma were applied and a sterile dressing was applied. This concluded the procedure and the patient was sent to the PACU in stable condition.
[2024-04-09] MEDS: LACTATED RINGERS 1,000 ML IV SCH (03:43)
[2024-04-09 05:47] LABS: Basophils % (A) 0 %; Eosinophils % (A) 0 %; HCT 33.3 % (34.0-46.0); Lymphocytes # (A) 0.3 k/uL (1.0-4.8); Lymphocytes % (A) 1 %; MCH 29.8 pg (25.0-35.0); MCHC 32.2 g/dL (31.0-37.0); MCV 92.4 fL (80.0-100.0); Mean Platelet Volume 8.3; Monocytes # (A) 0.5 k/uL (0-1.0); Monocytes % (A) 2 %; Neutrophils % (A) 97 %; Platelet Count 449 k/uL (150-450); RDW 13.3 % (11.5-15.5); WBC 28.6 k/uL (3.8-10.6)
[2024-04-09 06:08] LABS: African American GFR (CKD) 20 (>60 ml/min/1.73 sqM); Anion Gap 10 mmol/L; Blood Urea Nitrogen 97 mg/dL (7-17); Calcium 7.8 mg/dL (8.4-10.2); Carbon Dioxide 17 mmol/L (22-30); Chloride 109 mmol/L (98-107); Glucose 115 mg/dL (74-99); Non-African American GFR(CKD) 17 (>60 ml/min/1.73 sqM); Potassium 3.9 mmol/L (3.5-5.1); Sodium 136 mmol/L (137-145)
[2024-04-09 06:13] LABS: HGB 10.7 gm/dL (11.4-16.0)
[2024-04-09 06:14] LABS: Neutrophils # (A) 27.7 k/uL (1.3-7.7)
--- NOTE | 2024-04-09 07:48 | P.ANPRN ---
Procedure Note - Anesthesia - Invasive Line Left Arterial Line Time Out Performed: Yes Date of Procedure: 04/09/24 Time of Procedure: 00:30 Location of Patient: PreOp Arterial Line Location: Radial Ultrasound Used: No Purpose - Visualization and Identification of Vasculature: No Needle Guage: 20 Image Stored and Saved: No Narrative: Left radial arterial line placed by PUBLIC BATH ATTENDANT under sterile conditions using Seldinger technique
[2024-04-09] MEDS: PIPERACILLIN-TAZOBACTAM 3.375 GM in SODIUM CHLORIDE 0.9% 100 ML IVPB SCH ×2 (07:52→21:00)
[2024-04-09] MEDS: PANTOPRAZOLE 40 MG/10 ML VIAL IVP SCH (08:59)
--- NOTE | 2024-04-09 09:00 | P.ANPRN ---
Procedure Note - Anesthesia - Nerve Block Performed Bilateral Rectus Abdominis Single Time Out Performed: Yes Date of Procedure: 04/09/24 Procedure Start Time: 00:48 Procedure Stop Time: 01:00 Location of Patient: PreOp Indication: Acute Post-Operative Pain, Requested by Surgeon Sedation Type: Awake Preparation: Sterile Prep, Sterile Dressing Position: Supine Catheter: None Needle Types: Facet Needle Gauge: 20 Ultrasound used to visualize needle placement: Yes Ultrasound used to observe medication spread: Yes Injectate: Other (see comment) (Ropivacaine 0.25% + decadron 2 mg 30 ml per side) Blood Aspirated: No Pain Paresthesia on Injection Noted: No Resistance on Injection: Normal Image Stored and Saved: Yes Events: Uneventful and Well Tolerated
[2024-04-09] MEDS: FLUCONAZOLE IN NACL,ISO-OSM 100 MG in SALINE 1 50ML.BAG IVPB SCH (09:46)
--- NOTE | 2024-04-09 09:49 | P.CONS ---
History of Present Illness - Reason for Consult Consult date: 04/09/24 - Chief Complaint Weakness,Failure to thrive - History of Present Illness 88-year-old female who fell about 2 weeks ago and sustained some bruising to her ribs who was brought in today at the behest of a neighbor for evaluation of weakness failure to thrive decreased oral intake suspected dehydration no complaints of cough shortness of breath fever chills sweats no nausea vomiting she states she has not had a bowel movement for 4 days no dysuria. Per the neighbor came in with the patient she is just demonstrating decreased inability to perform activities of daily living.. The patient was somewhat confused on the year on initial evaluation however she did recall it was finally 2023. He apparently was somewhat confused as to how long ago her fall was. Patient was worked up in ED which revealed with the blood work white blood count of 36.2, hemoglobin of 11.4 and platelet count of 467, sodium 132, potassium 4.3, BUNs/creatinine of 118/3.27 and blood glucose of 120, lipase of 69 UA is unremarkable except for trace protein Given markedly elevated white blood count with no source of infection and suspicion for free air under right hemidiaphragm, CT of the abdomen and pelvis was ordered in ED and completed and resulted later CT of the brain was negative for any acute intracranial process Chest x-ray reveals no acute pulmonary disease. Lucency underneath the right hemidiaphragm. Free air not excluded. CT of the abdomen recommended Patient was initially called and admitted under our service for weakness and adult failure to thrive with marked leukocytosis; patient was placed on IV Rocephin and ID consultation along with nephrology consultation was placed for acute renal failure -Patient was placed on IV fluids in form of normal saline -CT of the abdomen and pelvis later resulted and revealed evidence of pneumoperitoneum likely secondary to perforated duodenal ulcer, ascites, fluid adjacent to spleen suggesting hemorrhagic content and therefore splenic subcapsular hematoma. There are couple of fractured adjacent ribs Patient was discussed with trauma surgery at that point and primary service was changed to Trauma with plans to take patient to the OR for an emergency exploratory laparotomy Review of Systems ROS unobtainable: due to mental status Past Medical History Additional Past Medical History / Comment(s): slight deafness History of Any Multi-Drug Resistant Organisms: None Reported Past Surgical History: Hysterectomy Past Psychological History: No Psychological Hx Reported Smoking Status: Former smoker Past Alcohol Use History: Occasional Past Drug Use History: None Reported Medications and Allergies Allergies Allergy/AdvReac Type Severity Reaction Status Date / Time No Known Allergies Allergy Verified 04/08/24 17:23 Physical Exam Vitals: Vital Signs Temp Pulse Resp BP Pulse Ox 04/08/24 17:21 98.5 F 95 16 128/58 95 Intake and Output 04/08/24 04/08/24 04/08/24 06:59 14:59 22:59 Other: Weight 54.885 kg This is a well-developed thin appearing female who is awake alert oriented x 4 General appearance: alert, in no apparent distress Head exam: Present: atraumatic, normocephalic, normal inspection Eye exam: Present: normal appearance, PERRL, EOMI. Absent: scleral icterus, conjunctival injection, periorbital swelling ENT exam: Present: mucous membranes dry Neck exam: Present: normal inspection, full ROM, other (No stridor JVD or bruits). Absent: tenderness, meningismus, lymphadenopathy Respiratory exam: Present: normal lung sounds bilaterally, chest wall tenderness (Mild tenderness to palpation over the bilateral lower lateral ribs no step-off or crepitation). Absent: respiratory distress, wheezes, rales, rhonchi, stridor Cardiovascular Exam: Present: regular rate, normal rhythm, normal heart sounds. Absent: systolic murmur, diastolic murmur, rubs, gallop, clicks GI/Abdominal exam: Present: soft, normal bowel sounds. Absent: distended, te nderness, guarding, rebound, rigid Extremities exam: Present: normal inspection, full ROM, normal capillary refill. Absent: tenderness, pedal edema, joint swelling, calf tenderness Neurological exam: Present: alert, oriented X3, CN II-XII intact Skin exam: Present: warm, dry, intact, normal color. Absent: rash Results CBC & Chem 7: 04/09/24 05:19 04/09/24 05:19 Labs: Abnormal Lab Results - Last 24 Hours (Table) 04/08/24 04/08/24 04/08/24 Range/Units 17:34 17:34 18:30 WBC 36.2 H (3.8-10.6) k/uL Plt Count 467 H (150-450) k/uL Neutrophils # (Manual) 34.00 H (1.3-7.7) k/uL Lymphocytes # (Manual) 0.72 L (1.0-4.8) k/uL Monocytes # (Manual) 1.81 H (0-1.0) k/uL Sodium 132 L (137-145) mmol/L Carbon Dioxide 18 L (22-30) mmol/L BUN 118 H* (7-17) mg/dL Creatinine 3.27 H (0.52-1.04) mg/dL Glucose 128 H (74-99) mg/dL AST 44 H (14-36) U/L Total Protein 5.1 L (6.3-8.2) g/dL Albumin 2.6 L (3.5-5.0) g/dL Urine Protein Trace H (Negative) Assessment and Plan Assessment: 1. Perforated abdominal viscus/perforated duodenal ulcer -- Patient had an x-ray performed of the chest which revealed suspicion of pneumoperitoneum; was followed by CT of the abdomen and pelvis which revealed pneumoperitoneum suspicion for perforated ulcer, possible splenic laceration with hematoma without rupture of the capsule and left-sided rib fractures -- Patient has been placed on IV Zosyn; she did receive 1 dose of IV Rocephin initially which is now discontinued -Trauma surgery to evaluate patient and patient will be taken to the OR for likely exploratory laparotomy 2. Hematoma of spleen without rupture of capsule; trauma surgery to evaluate patient and make recommendations 3. Acute renal injury/dehydration; patient has been placed on IV fluid hydration form of normal saline at rate of 100 cc an hour; will monitor strict JEANNETTE's, daily weights, renal function electrolytes; nephrotoxins and hypotension -- Renal ultrasound is ordered and pending; consult nephrology 4. Leukocytosis/sepsis; likely related to perforated viscus; patient has received 1 dose of IV Rocephin 2 g; currently on IV Zosyn; patient has been pancultured -- Will monitor CBC, CRP and procalcitonin -ID is consulted for further recommendations on antibiotic therapy 5. Mild hyponatremia; patient remains on IV fluids in form of normal saline; monitor electrolytes closely 6. Fall/left-sided rib fractures/debility -- Patient is recommended incentive spirometry every to 2 hours while awake; pain management -- PT/OT consulted VTE prophylaxis; SCDs only given need for surgical procedure CODE STATUS; full code
--- NOTE | 2024-04-09 10:27 | P.PN ---
Progress Note - Text Progress Note Date: 04/09/24 Patient returned from the OR around 3:57 in the morning. Surgery was performed by Dr. Sanders covering for our service. Patient is nonintubated. Walters catheter apparently unable to be placed. Hemodynamically doing well. Having some urinary incontinence issues. [facility] after seen by the reporting analyst. Nasogastric tube remains in place. Abdomen: Soft, mild tenderness, dressing in place, SHRUTHI serosanguineous Continue antibiotics. Continue nasogastric tube with bowel rest. Continue antiacid therapy. Pure wick for urinary drainage.
--- NOTE | 2024-04-09 11:07 | P.CNPUL ---
History of Present Illness Consult date: 04/09/24 Requesting physician: Varinder Sanders Reason for consult: other (Acute surgical abdomen) Chief complaint: Weakness History of present illness: This is an 88-year-old female, recent history of fall about 2 weeks ago, sustained bruising to her left ribs. Patient was brought in yesterday to the ER mostly with symptoms of weakness, failure to thrive, poor oral intake, and suspected dehydration. Patient was also complaining of cough and shortness of breath, no fever no chills, no nausea no vomiting. In addition the patient had no bowel movement for the last 4 days. Apparently the patient has been experiencing intermittent episodes of confusion for the last 1 year. Workup in the ER included a CT of the abdomen and pelvis, it showed pneumoperitoneum and free fluid. Patient was felt that she has ruptured viscus, she was seen by surgery and she underwent exploratory laparotomy for her pneumoperitoneum, and she was found to have perforated duodenal ulcer. Patient had modified Lee p atch and postoperatively the patient was extubated nonetheless she was admitted to the ICU, and this consult was initiated. I saw the patient in the ICU this morning, she is on 4 L nasal cannula, does not seem to be in any distress. She is already on Zosyn, and I added Diflucan. She is on LR at 125 cc/h. Her WBC count is 28.6, electrolytes are normal hemoglobin is 10.7 BUN is 97 creatinine down to 2.45 from 3.27 yesterday. Review of Systems REVIEW OF SYSTEMS: CONSTITUTIONAL: Mostly weakness and fatigue EYES: Negative. ENT: Negative. CARDIAC: Negative. PULMONARY: Intermittent cough, recent fall and trauma to ribs. GI: As noted in HPI GENITOURINARY: Negative. MUSCULOSKELETAL: Negative. SKIN: Negative. NEUROPSYCH: Negative. ENDOCRINE: Negative. HEMATOLOGIC: Negative. Past Medical History Additional Past Medical History / Comment(s): slight deafness History of Any Multi-Drug Resistant Organisms: None Reported Past Surgical History: Hysterectomy Past Psychological History: No Psychological Hx Reported Smoking Status: Former smoker Past Alcohol Use History: Occasional Past Drug Use History: None Reported Medications and Allergies Home Medications Medication Instructions Recorded Confirmed Type Lidocaine 5% Patch [Lidoderm] 1 patch TOPICAL DAILY 04/09/24 04/09/24 History traMADol HCL 50 mg PO Q4-6H PRN 04/09/24 04/09/24 History Allergies Allergy/AdvReac Type Severity Reaction Status Date / Time No Known Allergies Allergy Verified 04/09/24 10:53 Physical Exam Vitals: Vital Signs Temp Pulse Pulse Resp BP BP Pulse Ox 04/09/24 10:30 64 12 114/44 98 04/09/24 10:00 74 12 111/54 98 04/09/24 09:30 111/54 97 04/09/24 09:00 97.9 F 77 12 105/49 96 04/09/24 08:30 74 12 105/49 97 04/09/24 08:00 72 12 105/49 97 04/09/24 07:30 77 13 113/61 96 04/09/24 07:00 76 13 114/58 97 04/09/24 06:30 71 12 114/58 97 04/09/24 06:00 77 11 L 109/53 97 04/09/24 05:30 75 20 109/53 97 04/09/24 05:00 75 12 109/53 98 04/09/24 04:45 71 12 112/51 98 04/09/24 04:30 75 12 112/51 99 04/09/24 04:15 71 19 112/51 97 04/09/24 04:00 75 10 L 112/51 97 04/09/24 03:45 73 22 137/65 98 04/09/24 03:30 75 23 137/65 94 L 04/09/24 03:15 97.8 F 73 20 137/65 93 L 04/09/24 03:00 71 16 135/62 97 04/09/24 02:45 74 16 135/64 98 04/09/24 02:30 78 16 150/65 98 04/09/24 02:26 97.6 F 78 16 157/69 98 04/09/24 00:31 92 16 126/74 98 04/08/24 23:38 75 04/08/24 23:00 88 16 138/62 95 04/08/24 22:00 98.1 F 66 16 141/65 94 L 04/08/24 21:00 97.9 F 97 16 127/52 98 04/08/24 17:21 98.5 F 95 16 128/58 95 Intake and Output 04/08/24 04/09/24 04/09/24 22:59 06:59 14:59 Intake Total 1175 425 Output Total 50 Balance 1125 425 Intake: IV 800 Intake, IV Titration 375 425 Amount Lactated Ringers 1,000 ml 375 375 @ 125 mls/hr IV .Q8H [facility] Rx#:[id number] Piperacillin-Tazobactam 3 50 .375 gm In Sodium Chloride 0.9% 100 ml @ 25 mls/hr IVPB Q8HR [facility] Rx# :[id number] Output: Estimated Blood Loss 50 Other: # Voids 1 Weight 54.885 kg 56.8 kg ABP, PAP, CO, CI - Last 8 Hours Arterial Blood Pressure 108/101 Arterial Blood Pressure 125/120 Arterial Blood Pressure 131/124 Arterial Blood Pressure 107/56 Arterial Blood Pressure 127/51 Arterial Blood Pressure 123/44 Arterial Blood Pressure 128/45 Arterial Blood Pressure 128/46 Arterial Blood Pressure 120/48 Arterial Blood Pressure 120/54 Arterial Blood Pressure 140/46 Arterial Blood Pressure 146/45 Arterial Blood Pressure 148/45 Arterial Blood Pressure 165/50 Arterial Blood Pressure 146/44 Arterial Blood Pressure 153/45 Arterial Blood Pressure 158/47 Arterial Blood Pressure 162/48 Arterial Blood Pressure 161/48 General appearance: Revealed an 88-year-old female, looks frail, in no distress. On 4 L nasal cannula. Head exam: Atraumatic, normocephalic Eye exam: normal appearance, PERRL, EOMI. nonicteric. ENT exam:mucous membranes dry Neck exam: Supple no neck masses no JVD Respiratory clear bilaterally no crackles rhonchi or wheezes Cardiovascular Exam: Distant S1-S2, no S3 gallop, no murmur GI/Abdominal exam: Postsurgical, soft, nontender Extremities exam: No clubbing edema or cyanosis Neurological exam: Present: alert, oriented X3, CN II-XII intact Skin exam: No rashes Results - Laboratory Findings CBC and BMP: 04/09/24 05:19 04/09/24 05:19 Abnormal lab findings: Abnormal Labs 04/08/24 04/08/24 04/08/24 17:34 17:34 18:30 WBC 36.2 H RBC Hgb Hct Plt Count 467 H Neutrophils # Neutrophils # (Manual) 34.00 H Lymphocytes # Lymphocytes # (Manual) 0.72 L Monocytes # (Manual) 1.81 H Sodium 132 L Chloride Carbon Dioxide 18 L BUN 118 H* Creatinine 3.27 H Glucose 128 H Calcium AST 44 H Total Protein 5.1 L Albumin 2.6 L Urine Protein Trace H 04/09/24 04/09/24 04/09/24 00:30 05:19 05:19 WBC 22.6 H 28.6 H RBC 3.60 L Hgb 10.7 L D Hct 33.3 L Plt Count Neutrophils # 20.7 H 27.7 H Neutrophils # (Manual) Lymphocytes # 0.9 L 0.3 L Lymphocytes # (Manual) Monocytes # (Manual) Sodium 136 L Chloride 109 H Carbon Dioxide 17 L BUN 97 H Creatinine 2.45 H Glucose 115 H Calcium 7.8 L AST Total Protein Albumin Urine Protein - Diagnostic Findings Chest x-ray: image reviewed (Chest x-ray as noted in HPI, patient was found to have free air under the right hemidiaphragm, otherwise negative findings ) Assessment and Plan Assessment: Impression: Perforated duodenal ulcer status post exploratory laparotomy and modified Lee patch. Postoperative day #1 Acute abdominal sepsis History of spleen hematoma without rupture Acute dehydration and acute kidney injury Leukocytosis secondary to sepsis Hypovolemic hyponatremia Medical debility Recommendation: Continue present supportive care measures Continue antibiotics and added fluconazole. Continue IV fluids and continue close monitoring of electrolytes and renal profile GI and DVT prophylaxis/Protonix and subcu heparin Consider transitioning the patient out of the ICU to a medical surgical floor. Early ambulation Will continue to follow Time with Patient: Greater than 30
--- NOTE | 2024-04-09 12:44 | P.NPCON ---
History of Present Illness - Reason for Consult acute renal failure - History of Present Illness patient is an 88-year-old femalewho was admitted to the hospital with history of increased weaknessand status post fall. patient had also been confused. CT of the abdomen showed pneumoperitoneum and patient was taken to the OR and is status post explorative laparotomy and modified Lee patch for pneumoperi toneum from perforated duodenal ulcer. Patient did not require pressors. currently maintained on IV fluids, and lower at 1 25 mL an hour. Serum creatinine was 3.2 on admission and decreased to 2.45 today. No previous history of kidney disease. No previous labs available for comparison. Good urine output. Review of Systems as per HPI Past Medical History Additional Past Medical History / Comment(s): slight deafness History of Any Multi-Drug Resistant Organisms: None Reported Past Surgical History: Hysterectomy Past Psychological History: No Psychological Hx Reported Smoking Status: Former smoker Past Alcohol Use History: Occasional Past Drug Use History: None Reported Medications and Allergies Home Medications Medication Instructions Recorded Confirmed Type Lidocaine 5% Patch [Lidoderm] 1 patch TOPICAL DAILY 04/09/24 04/09/24 History RX: traMADol HCL 50 mg PO Q4-6H PRN 04/09/24 04/09/24 History Allergies Allergy/AdvReac Type Severity Reaction Status Date / Time No Known Allergies Allergy Verified 04/09/24 10:53 Physical Exam Vitals: Vital Signs Temp Pulse Pulse Resp BP BP Pulse Ox 04/09/24 12:30 138 H 15 141/63 04/09/24 12:00 79 27 H 121/56 95 04/09/24 11:30 70 15 121/56 94 L 04/09/24 11:00 75 17 114/44 96 04/09/24 10:30 64 12 114/44 98 04/09/24 10:00 74 12 111/54 98 04/09/24 09:30 111/54 97 04/09/24 09:00 97.9 F 77 12 105/49 96 04/09/24 08:30 74 12 105/49 97 04/09/24 08:00 72 12 105/49 97 04/09/24 07:30 77 13 113/61 96 04/09/24 07:00 76 13 114/58 97 04/09/24 06:30 71 12 114/58 97 04/09/24 06:00 77 11 L 109/53 97 04/09/24 05:30 75 20 109/53 97 04/09/24 05:00 75 12 109/53 98 04/09/24 04:45 71 12 112/51 98 04/09/24 04:30 75 12 112/51 99 04/09/24 04:15 71 19 112/51 97 04/09/24 04:00 75 10 L 112/51 97 04/09/24 03:45 73 22 137/65 98 04/09/24 03:30 75 23 137/65 94 L 04/09/24 03:15 97.8 F 73 20 137/65 93 L 04/09/24 03:00 71 16 135/62 97 04/09/24 02:45 74 16 135/64 98 04/09/24 02:30 78 16 150/65 98 04/09/24 02:26 97.6 F 78 16 157/69 98 04/09/24 00:31 92 16 126/74 98 04/08/24 23:38 75 04/08/24 23:00 88 16 138/62 95 04/08/24 22:00 98.1 F 66 16 141/65 94 L 04/08/24 21:00 97.9 F 97 16 127/52 98 04/08/24 17:21 98.5 F 95 16 128/58 95 Intake and Output 04/08/24 04/09/24 04/09/24 22:59 06:59 14:59 Intake Total 1175 900 Output Total 50 125 Balance 1125 775 Intake: IV 800 Intake, IV Titration 375 900 Amount Fluconazole in NaCl,Iso- 50 Osm 100 mg In Saline 1 50ml.bag @ 50 mls/hr IVPB DAILY [facility] Rx#:[id number] Lactated Ringers 1,000 ml 375 750 @ 125 mls/hr IV .Q8H [facility] Rx#:[id number] Piperacillin-Tazobactam 3 100 .375 gm In Sodium Chloride 0.9% 100 ml @ 25 mls/hr IVPB Q8HR [facility] Rx# :[id number] Output: Urine 125 Estimated Blood Loss 50 Other: # Voids 1 Weight 54.885 kg 56.8 kg ABP, PAP, CO, CI - Last 8 Hours Arterial Blood Pressure 97/66 Arterial Blood Pressure 145/79 Arterial Blood Pressure 117/110 Arterial Blood Pressure 109/98 Arterial Blood Pressure 108/101 Arterial Blood Pressure 125/120 Arterial Blood Pressure 131/124 Arterial Blood Pressure 107/56 Arterial Blood Pressure 127/51 Arterial Blood Pressure 123/44 Arterial Blood Pressure 128/45 Arterial Blood Pressure 128/46 Arterial Blood Pressure 120/48 Arterial Blood Pressure 120/54 Arterial Blood Pressure 140/46 Arterial Blood Pressure 146/45 Arterial Blood Pressure 148/45 patient is awake, comfortable, no acute distress. Examination of the heart S1 and S2 Examination of the lungs bilateral breath sounds are heard Abdomen is soft with dressing noted. Examination of lower extremities shows no edema. FUSELAGE FRAMER exam shows patient is moving all 4 extremities. Results - Lab Results Most recent lab results Calcium 7.8 mg/dL (8.4-10.2) L 04/09/24 05:19 Magnesium 2.0 mg/dL (1.6-2.3) 04/08/24 17:34 04/09/24 05:19 04/09/24 05:19 Assessment and Plan Assessment: 1. Acute kidney injury, ATN currently nonoliguric. UA is quite benign. No evidence of obstruction on CT of the abdomen. 2. Non-gap metabolic acidosis secondary to acute kidney injury. 3. Perforated duodenal ulcer status post explorative laparotomy with lee patch on 04/09/2024 4. Status post fall with rib fractures Plan: continue with IV fluids. Repeat labs in a.m. Continue to avoid nephrotoxic agents. Switch to IV bicarb if acidosis is not improved by tomorrow. Thank you for the consultation. We will continue to follow the patient with you during her hospitalization.
[2024-04-09] MEDS: DEXTROSE 5% IN WATER 100 ML with AMIODARONE 150 MG IV ONE (13:02)
[2024-04-09] MEDS: AMIODARONE 360 MG in DEXTROSE 5% IN WATER 200 ML IV ONE (13:19)
[2024-04-09] MEDS: DILTIAZEM 125 MG in SODIUM CHLORIDE 0.9% 100 ML IV SCH (13:45)
[2024-04-09] MEDS: DILTIAZEM DRIP BOLUS FROM BAG 1 MG SOLN IV ONE (13:47)
[2024-04-09] MEDS: HYDROmorphone 0.5 MG/0.5 ML SYRINGE IVP PRN (15:12)
--- NOTE | 2024-04-09 16:56 | P.CONS ---
History of Present Illness - Reason for Consult Consult date: 04/09/24 Leukocytosis Requesting physician: April Urena - Chief Complaint Weakness failure to thrive x few days - History of Present Illness Patient is a 88-year-old female presenting to the hospital for evaluation of weakness failure to thrive decreased oral intake no clear history of any nausea vomiting however the patient was having abdominal pain mostly in the epigastric area sharp moderate to severe intensity and no bowel movement for 4 days patient did have a CT abdominal pannus with evidence of pneumoperitoneum patient was taken to the OR at this the patient is status post laparotomy with evidence of perforated jejunal ulcer status post modified Lee patch postoperative the patient has been admitted to ICU she was started on Zosyn Diflucan infectious disease was consulted for further management of antibiotic therapy patient did have my evaluation is afebrile and denies having any fever or chills at home denies any headache or URI symptoms no chest pain shortness of breath occasional cough did have some abdominal pain controlled with the pain me dication worse with movement nausea vomiting patient did have a white count of 36,000 down to 20,000 BUN and creatinine has been elevated with a creatinine 2.45 you has been negative blood cultures obtained which are currently pending in the OR culture was done Review of Systems Positive point and negatives has been mentioned in the HPI, complete review of systems was performed and all other systems are negative Past Medical History Additional Past Medical History / Comment(s): slight deafness History of Any Multi-Drug Resistant Organisms: None Reported Past Surgical History: Hysterectomy Past Psychological History: No Psychological Hx Reported Smoking Status: Former smoker Past Alcohol Use History: Occasional Past Drug Use History: None Reported Medications and Allergies Allergies Allergy/AdvReac Type Severity Reaction Status Date / Time No Known Allergies Allergy Verified 04/09/24 10:53 Physical Exam Vitals: Vital Signs Temp Pulse Pulse Resp BP BP Pulse Ox 04/09/24 09:00 97.9 F 77 12 105/49 96 04/09/24 08:30 74 12 105/49 97 04/09/24 08:00 72 12 105/49 97 04/09/24 07:30 77 13 113/61 96 04/09/24 07:00 76 13 114/58 97 04/09/24 06:30 71 12 114/58 97 04/09/24 06:00 77 11 L 109/53 97 04/09/24 05:30 75 20 109/53 97 04/09/24 05:00 75 12 109/53 98 04/09/24 04:45 71 12 112/51 98 04/09/24 04:30 75 12 112/51 99 04/09/24 04:15 71 19 112/51 97 04/09/24 04:00 75 10 L 112/51 97 04/09/24 03:45 73 22 137/65 98 04/09/24 03:30 75 23 137/65 94 L 04/09/24 03:15 97.8 F 73 20 137/65 93 L 04/09/24 03:00 71 16 135/62 97 04/09/24 02:45 74 16 135/64 98 04/09/24 02:30 78 16 150/65 98 04/09/24 02:26 97.6 F 78 16 157/69 98 04/09/24 00:31 92 16 126/74 98 04/08/24 23:38 75 04/08/24 23:00 88 16 138/62 95 04/08/24 22:00 98.1 F 66 16 141/65 94 L 04/08/24 21:00 97.9 F 97 16 127/52 98 04/08/24 17:21 98.5 F 95 16 128/58 95 Intake and Output 04/08/24 04/09/24 04/09/24 22:59 06:59 14:59 Intake Total 1175 425 Output Total 50 Balance 1125 425 Intake: IV 800 Intake, IV Titration 375 425 Amount Lactated Ringers 1,000 ml 375 375 @ 125 mls/hr IV .Q8H [facility] Rx#:[id number] Piperacillin-Tazobactam 3 50 .375 gm In Sodium Chloride 0.9% 100 ml @ 25 mls/hr IVPB Q8HR [facility] Rx# :[id number] Output: Estimated Blood Loss 50 Other: # Voids 1 Weight 54.885 kg 56.8 kg ABP, PAP, CO, CI - Last 8 Hours Arterial Blood Pressure 107/56 Arterial Blood Pressure 127/51 Arterial Blood Pressure 123/44 Arterial Blood Pressure 128/45 Arterial Blood Pressure 128/46 Arterial Blood Pressure 120/48 Arterial Blood Pressure 120/54 Arterial Blood Pressure 140/46 Arterial Blood Pressure 146/45 Arterial Blood Pressure 148/45 Arterial Blood Pressure 165/50 Arterial Blood Pressure 146/44 Arterial Blood Pressure 153/45 Arterial Blood Pressure 158/47 Arterial Blood Pressure 162/48 Arterial Blood Pressure 161/48 GENERAL DESCRIPTION: Elderly female lying in bed, no distress. No tachypnea or accessory muscle of respiration use. HEENT: Shows Pallor , no scleral icterus. Oral mucous membrane is dry. No pharyngeal erythema or thrush NECK: Trachea central, no thyromegaly. LUNGS: Unlabored breathing. Clear to auscultation anteriorly. No wheeze or crackle. HEART: S1, S2, regular rate and rhythm. No loud murmur ABDOMEN: Soft, mild distention and tenderness EXTREMITIES: No edema of feet. SKIN: No rash, no masses palpable. NEUROLOGICAL: The patient is awake, mood and affect normal. Results CBC & Chem 7: 04/29/24 05:36 05/04/24 05:09 Labs: Abnormal Lab Results - Last 24 Hours (Table) 04/08/24 04/08/24 04/08/24 Range/Units 17:34 17:34 18:30 WBC 36.2 H (3.8-10.6) k/uL RBC (3.80-5.40) m/uL Hgb (11.4-16.0) gm/dL Hct (34.0-46.0) % Plt Count 467 H (150-450) k/uL Neutrophils # (1.3-7.7) k/uL Neutrophils # (Manual) 34.00 H (1.3-7.7) k/uL Lymphocytes # (1.0-4.8) k/uL Lymphocytes # (Manual) 0.72 L (1.0-4.8) k/uL Monocytes # (Manual) 1.81 H (0-1.0) k/uL Sodium 132 L (137-145) mmol/L Chloride (98-107) mmol/L Carbon Dioxide 18 L (22-30) mmol/L BUN 118 H* (7-17) mg/dL Creatinine 3.27 H (0.52-1.04) mg/dL Glucose 128 H (74-99) mg/dL Calcium (8.4-10.2) mg/dL AST 44 H (14-36) U/L Total Protein 5.1 L (6.3-8.2) g/dL Albumin 2.6 L (3.5-5.0) g/dL Urine Protein Trace H (Negative) 04/09/24 04/09/24 04/09/24 Range/Units 00:30 05:19 05:19 WBC 22.6 H 28.6 H (3.8-10.6) k/uL RBC 3.60 L (3.80-5.40) m/uL Hgb 10.7 L D (11.4-16.0) gm/dL Hct 33.3 L (34.0-46.0) % Plt Count (150-450) k/uL Neutrophils # 20.7 H 27.7 H (1.3-7.7) k/uL Neutrophils # (Manual) (1.3-7.7) k/uL Lymphocytes # 0.9 L 0.3 L (1.0-4.8) k/uL Lymphocytes # (Manual) (1.0-4.8) k/uL Monocytes # (Manual) (0-1.0) k/uL Sodium 136 L (137-145) mmol/L Chloride 109 H (98-107) mmol/L Carbon Dioxide 17 L (22-30) mmol/L BUN 97 H (7-17) mg/dL Creatinine 2.45 H (0.52-1.04) mg/dL Glucose 115 H (74-99) mg/dL Calcium 7.8 L (8.4-10.2) mg/dL AST (14-36) U/L Total Protein (6.3-8.2) g/dL Albumin (3.5-5.0) g/dL Urine Protein (Negative) Assessment and Plan (1) Leukocytosis Status: Acute Code(s): D72.829 - ELEVATED WHITE BLOOD CELL COUNT, UNSPECIFIED SNOMED Code(s): 420784887 (2) Perforated duodenal ulcer Status: Acute Code(s): K26.5 - CHRONIC OR UNSPECIFIED DUODENAL ULCER WITH PERF ORATION SNOMED Code(s): 48469765 (3) Peritonitis Status: Acute Code(s): K65.9 - PERITONITIS, UNSPECIFIED SNOMED Code(s): 67472620 Plan: 1patient presented to hospital with abdominal pain constipation has been diagnosed with the pneumoperitoneum secondary to perforated duodenal ulcer status post laparotomy and repair of the perforated jejunal ulcer we will need to confirm that her gram-negative and yeast. 2we will keep the patient on empiric Zosyn and Diflucan and watch clinical course closely We will follow on clinical condition and cultures to further adjust medication if needed Thank you for this consultation we will follow the patient along with you Dictation was produced using [employer] dictation software. please excuse any grammatical, word or spelling errors. Time with Patient: Greater than 30
[2024-04-09] MEDS: AMIODARONE 450 MG in DEXTROSE 5% IN WATER 250 ML IV SCH (19:30)
[2024-04-10 06:50] LABS: Glucose,Whole Blood 159 mg/dL (70-110)
--- NOTE | 2024-04-10 07:36 | P.CRDCN ---
History of Present Illness Consult date: 04/10/24 Chief complaint: Abdominal discomfort History of present illness: This is an 88-year-old female patient who is somewhat poor historian who we are asked to see in the intensive care unit for further evaluation of atrial fibrillation with rapid ventricular response. The patient lives by herself. She has some underlying dementia. She was brought by her neighbor because she fell 2 days ago and has not been feeling well. She has been experiencing intermittent episodes of confusion and she was also having failure to thrive. Beside that she was feeling nauseated and experiencing intermittent episodes of abdominal discomfort. She underwent further investigation in the emergency department including an EKG showing sinus mechanism with nonspecific ST and T wave abnormalities and also she underwent a CT scan of the abdomen and that revealed perforated bowel. The patient underwent surgery yesterday and this is her postoperation day #1. No history of CAD or CHF or cardiac arrhythmia including atrial fibrillation the patient never seen by a continuous pickling line pickler in the past according to her. The patient is extremely poor historian and she has difficulty hearing. Subsequently the patient was started on Cardizem IV and amiodarone IV and converted to normal sinus mechanism and has been maintaining normal sinus mechanism with heart rate in the 50s as well as the 60s. Currently she is not on any IV heparin or anticoagulation. We are going to find out from the surgical team when it is safe to start the patient on IV heparin at this point. Apparently she is n.p.o. and cannot take any oral medication and for that reason she is on the IV AV georgie harvinder agents. An echocardiogram was ordered and still pending. Further investigation also was performed including creatinine came to be at 2.5 but the patient has not been able to urinate and there is a component of obstructive uropathy and currently urology service is on the case to place a Walters catheter. Beside that her hemoglobin has been around 10.5. The examination is remarkable for regular rhythm with distant heart sounds and systolic murmur at the right upper sternal border with diminished breathing sounds bilaterally and no edema was noted in the lower extremities Assessment Status post abdominal surgery as described above Atrial fibrillation which is new. Currently the patient is in sinus mechanism. The patient probably has atrial fibrillation of acute illness Obstructive uropathy Acute renal failure secondary to above Multiple comorbid conditions Plan Continue the current medical regimen Continue amiodarone IV and Cardizem IV as far as she is n.p.o. Consider starting the patient on heparin IV once safe from the surgical standpoint of view Follow-up on the echocardiogram Past Medical History Additional Past Medical History / Comment(s): slight deafness History of Any Multi-Drug Resistant Organisms: None Reported Past Surgical History: Hysterectomy Past Psychological History: No Psychological Hx Reported Smoking Status: Former smoker Past Alcohol Use History: Occasional Past Drug Use History: None Reported Medications and Allergies Home Medications Medication Instructions Recorded Confirmed Type Lidocaine 5% Patch [Lidoderm] 1 patch TOPICAL DAILY 04/09/24 04/09/24 History traMADol HCL 50 mg PO Q4-6H PRN 04/09/24 04/09/24 History Allergies Allergy/AdvReac Type Severity Reaction Status Date / Time No Known Allergies Allergy Verified 04/09/24 10:53 Physical Exam Vitals: Vital Signs Temp Pulse Resp BP Pulse Ox 04/10/24 06:00 60 17 125/55 94 L 04/10/24 05:30 82 16 128/57 95 04/10/24 05:00 62 15 107/47 94 L 04/10/24 04:30 56 L 18 113/49 94 L 04/10/24 04:00 55 L 16 109/46 95 04/10/24 03:30 59 L 16 128/55 94 L 04/10/24 03:00 70 14 119/54 95 04/10/24 02:30 64 13 112/51 93 L 04/10/24 02:00 56 L 14 126/55 94 L 04/10/24 01:30 64 16 111/71 92 L 04/10/24 01:00 61 15 100/45 93 L 04/10/24 00:30 54 L 25 H 102/47 93 L 04/10/24 00:00 97.8 F 54 L 27 H 111/49 93 L 04/09/24 23:30 55 L 17 113/49 95 04/09/24 23:00 71 16 123/58 93 L 04/09/24 22:30 56 L 12 119/55 95 04/09/24 22:00 58 L 16 119/56 94 L 04/09/24 21:30 68 14 119/47 92 L 04/09/24 21:00 60 16 103/48 04/09/24 20:00 97.7 F 58 L 18 109/51 04/09/24 19:30 62 12 117/63 06/23/24 19:00 75 16 124/53 04/09/24 18:30 73 18 121/61 04/09/24 18:00 63 14 103/50 95 04/09/24 17:30 60 14 105/49 96 04/09/24 17:00 66 14 123/58 94 L 04/09/24 16:30 73 20 121/60 94 L 04/09/24 16:00 97.8 F 71 12 105/63 04/09/24 15:45 97 15 105/63 92 L 04/09/24 15:30 81 11 L 115/53 92 L 04/09/24 15:15 98 19 101/56 91 L 04/09/24 15:00 91 17 116/78 86 L 04/09/24 14:45 75 16 108/61 92 L 04/09/24 14:30 96 16 113/63 04/09/24 14:15 96 16 100/60 91 L 04/09/24 14:00 94 13 108/59 92 L 04/09/24 13:45 102 H 15 116/75 90 L 04/09/24 13:30 110 H 17 118/75 91 L 04/09/24 13:15 109 H 15 112/69 90 L 04/09/24 13:10 124 H 14 110/48 92 L 04/09/24 13:00 140 H 14 121/73 91 L 04/09/24 12:45 134 H 15 120/67 04/09/24 12:30 138 H 15 141/63 04/09/24 12:00 97.8 F 79 27 H 121/56 95 04/09/24 11:30 70 15 121/56 94 L 04/09/24 11:00 75 17 114/44 96 04/09/24 10:30 64 12 114/44 98 04/09/24 10:00 74 12 111/54 98 04/09/24 09:30 111/54 97 04/09/24 09:00 97.9 F 77 12 105/49 96 04/09/24 08:30 74 12 105/49 97 04/09/24 08:00 72 12 105/49 97 Intake and Output 04/09/24 04/10/24 04/10/24 22:59 06:59 14:59 Intake Total 1106.57 1173.6 Output Total 75 170 Balance 1031.57 1003.6 Intake: Intake, IV Titration 1106.57 1173.6 Amount Amiodarone 360 mg In 166.5 Dextrose 5% in Water 200 ml @ 1 MG/MIN 33.333 mls/ hr IV .Q6H [facility] Rx#: [id number] Amiodarone 450 mg In 50.07 133.6 Dextrose 5% in Water 250 ml @ 0.5 MG/MIN 16.667 mls/hr IV .Q15H [facility] Rx#: [id number] Diltiazem 125 mg In 40 40 Sodium Chloride 0.9% 100 ml @ 5 MG/HR 5 mls/hr IV .Q24H [facility] Rx#:[id number] Lactated Ringers 1,000 ml 750 1000 @ 125 mls/hr IV .Q8H [facility] Rx#:[id number] Piperacillin-Tazobactam 3 100 .375 gm In Sodium Chloride 0.9% 100 ml @ 25 mls/hr IVPB Q12H [facility] Rx# :[id number] Output: Drainage 0 20 Lower Abdomen 0 20 Urine 75 150 Other: Voiding Method Incontinent Incontinent External Catheter External Catheter # Voids 1 # Bowel Movements 0 Weight 59.8 kg Results 04/09/24 05:19 04/09/24 05:19 Current Medications Generic Name Dose Route Start Last Admin Trade Name Freq PRN Reason Stop Dose Admin Hydromorphone HCl 0.5 mg 04/09/24 02:45 04/09/24 22:54 Hydromorphone 0.5 Mg/0.5 Ml Syringe IVP 0.5 mg Q3HR PRN Administration Pain Lactated Ringer's 1,000 mls @ 125 mls/hr 04/09/24 02:45 04/10/24 06:32 Lactated Ringers IV 125 mls/hr .Q8H [facility] Administration Fluconazole/Sodium Chloride 50 mls @ 50 mls/hr 04/09/24 09:00 04/09/24 09:46 100 mg/ IV Solution IVPB 50 mls/hr DAILY [facility] Administration Protocol Piperacillin Sod/Tazobactam 100 mls @ 25 mls/hr 04/09/24 20:00 04/09/24 21:00 Sod 3.375 gm/ Sodium Chloride IVPB 25 mls/hr Q12H [facility] Administration Protocol Amiodarone HCl 450 mg/ 250 mls @ 16.667 mls/hr 04/09/24 18:45 04/09/24 19:30 Dextrose/Water IV 04/10/24 12:44 0.5 mg/min .Q15H [facility] 16.667 mls/hr Administration Protocol 0.5 MG/MIN Diltiazem HCl 125 mg/ Sodium 125 mls @ 5 mls/hr 04/09/24 13:00 04/09/24 13:45 Chloride IV 5 mg/hr .Q24H [facility] 5 mls/hr Administration 5 MG/HR Naloxone HCl 0.2 mg 04/08/24 23:26 Naloxone 0.4 Mg/Ml 1 Ml Vial IV Q2M PRN Opioid Reversal Ondansetron HCl 4 mg 04/09/24 02:47 Ondansetron 4 Mg/2 Ml Vial IVP Q6HR PRN Nausea And Vomiting Pantoprazole Sodium 40 mg 04/09/24 09:00 04/09/24 08:59 Pantoprazole 40 Mg/10 Ml Vial IVP 40 mg DAILY [facility] Administration Intake and Output 04/09/24 04/10/24 04/10/24 22:59 06:59 14:59 Intake Total 1106.57 1173.6 Output Total 75 170 Balance 1031.57 1003.6 Intake: Intake, IV Titration 1106.57 1173.6 Amount Amiodarone 360 mg In 166.5 Dextrose 5% in Water 200 ml @ 1 MG/MIN 33.333 mls/ hr IV .Q6H [facility] Rx#: [id number] Amiodarone 450 mg In 50.07 133.6 Dextrose 5% in Water 250 ml @ 0.5 MG/MIN 16.667 mls/hr IV .Q15H [facility] Rx#: [id number] Diltiazem 125 mg In 40 40 Sodium Chloride 0.9% 100 ml @ 5 MG/HR 5 mls/hr IV .Q24H [facility] Rx#:[id number] Lactated Ringers 1,000 ml 750 1000 @ 125 mls/hr IV .Q8H [facility] Rx#:[id number] Piperacillin-Tazobactam 3 100 .375 gm In Sodium Chloride 0.9% 100 ml @ 25 mls/hr IVPB Q12H [facility] Rx# :[id number] Output: Drainage 0 20 Lower Abdomen 0 20 Urine 75 150 Other: Voiding Method Incontinent Incontinent External Catheter External Catheter # Voids 1 # Bowel Movements 0 Weight 59.8 kg 04/09/24 05:19 04/09/24 05:19
--- NOTE | 2024-04-10 08:17 | XR ---
EXAMINATION TYPE: XR chest 1V portable DATE OF EXAM: 04/10/2024 5:13 AM CLINICAL INDICATION:Female, 88 years old with history of increased O2 demands; COMPARISON: Chest radiographs from 04/08/2024 TECHNIQUE: XR chest 1V portable Frontal view of the chest. FINDINGS: Lungs/Pleura: No evidence of focal consolidation or pneumothorax. Blunting of the costophrenic angles is present. Pulmonary vascularity: Unremarkable. Heart/mediastinum: Cardiomediastinal silhouette is enlarged and stable. Musculoskeletal: No acute osseous pathology. Other findings: None Lines/Tubes: Nasogastric tube with its distal tip and side-port projecting under the diaphragm. IMPRESSION: Layering bilateral pleural effusions suggested versus atelectasis.
--- NOTE | 2024-04-10 08:51 | P.PN ---
Subjective Progress Note Date: 04/10/24 This is an 80-year-old female with a history of a recent fall about 2 weeks ago who was brought into the emergency department with complaints of weakness and poor oral intake. Patient had an exploratory laparotomy and was found to have a perforated duodenal ulcer with a Lee patch placed. She remains in ICU. She is alert and oriented. She is still significantly weak. Objective - Vital Signs Vital signs: Vital Signs Temp 97.8 F 04/10/24 00:00 Pulse 87 04/10/24 07:30 Resp 19 04/10/24 08:00 BP 137/62 04/10/24 08:00 Pulse Ox 93 L 04/10/24 08:00 FiO2 Intake & Output 04/09/24 04/10/24 04/10/24 18:59 06:59 18:59 Intake Total 1941.5 1626.97 146.7 Output Total 150 220 50 Balance 1791.5 1406.97 96.7 Weight 59.8 kg Intake: Intake, IV Titration 1941.5 1626.97 146.7 Amount Amiodarone 360 mg In 166.5 33.3 Dextrose 5% in Water 200 ml @ 1 MG/MIN 33.333 mls/ hr IV .Q6H [facility] Rx#: [id number] Amiodarone 450 mg In 183.67 16.7 Dextrose 5% in Water 250 ml @ 0.5 MG/MIN 16.667 mls/hr IV .Q15H [facility] Rx#: [id number] Dextrose 5% in Water 100 100 ml @ 618 mls/hr IV .Q10M [facility] with Amiodarone 150 mg Rx#:[id number] Diltiazem 125 mg In 25 60 5 Sodium Chloride 0.9% 100 ml @ 5 MG/HR 5 mls/hr IV .Q24H [facility] Rx#:[id number] Fluconazole in NaCl,Iso- 50 Osm 100 mg In Saline 1 50ml.bag @ 50 mls/hr IVPB DAILY [facility] Rx#:[id number] Lactated Ringers 1,000 ml 1500 1250 125 @ 125 mls/hr IV .Q8H [facility] Rx#:[id number] Piperacillin-Tazobactam 3 100 .375 gm In Sodium Chloride 0.9% 100 ml @ 25 mls/hr IVPB Q12H [facility] Rx# :[id number] Piperacillin-Tazobactam 3 100 .375 gm In Sodium Chloride 0.9% 100 ml @ 25 mls/hr IVPB Q8HR [facility] Rx# :[id number] Output: Drainage 0 20 Lower Abdomen 0 20 Urine 150 200 50 Other: Voiding Method Incontinent External Catheter # Voids 1 1 # Bowel Movements 0 ABP, PAP, CO, CI - Last Documented Arterial Blood Pressure 90/59 - Constitutional General appearance: Present: cooperative, no acute distress, thin - EENT Eyes: Present: PERRLA - Neck Neck: Present: normal ROM. Absent: lymphadenopathy, rigidity - Respiratory Respiratory: bilateral: CTA - Cardiovascular Rhythm: regular Heart sounds: normal: S1, S2 - Gastrointestinal General gastrointestinal: Present: soft. Absent: tenderness - Integumentary Integumentary: Present: normal, normal turgor - Musculoskeletal Musculoskeletal: Present: generalized weakness - Psychiatric Psychiatric: Present: A&O x's 3 - Labs CBC & Chem 7: 04/09/24 05:19 04/09/24 05:19 Labs: Abnormal Lab Results - Last 24 Hours (Table) 04/10/24 Range/Units 06:49 POC Glucose (mg/dL) 159 H (70-110) mg/dL Assessment and Plan (1) Dehydration Current Visit: Yes Status: Acute Code(s): E86.0 - DEHYDRATION SNOMED Code(s): 15943321 (2) Acute kidney injury Current Visit: Yes Status: Acute Code(s): N17.9 - ACUTE KIDNEY FAILURE, UNSPECIFIED SNOMED Code(s): 87640390 (3) Hematoma of spleen without rupture of capsule Current Visit: Yes Status: Acute Code(s): D73.5 - INFARCTION OF SPLEEN SNOMED Code(s): 765574264 (4) Fall Current Visit: No Status: Acute Code(s): W19.XXXA - UNSPECIFIED FALL, INITIAL ENCOUNTER SNOMED Code(s): 0179783 (5) Ribs, multiple fractures Current Visit: No Status: Acute Code(s): S22.49XA - MULTIPLE FRACTURES OF RIBS, UNSP SIDE, INIT FOR CLOS FX SNOMED Code(s): 9088220 (6) Perforated duodenal ulcer Current Visit: Yes Status: Acute Code(s): K26.5 - CHRONIC OR UNSPECIFIED DUODENAL ULCER WITH PERFORATION SNOMED Code(s): 83707635 Plan: Appreciate multiple consultants. Check CBC and CMP in the morning. Patient seen and evaluated by nurse practitioner, physician in agreement with plan
--- NOTE | 2024-04-10 11:40 | P.PN ---
Subjective patient is seen for follow-up for acute kidney injury. Currently maintained on IV fluids. Serum creatinine has improved. Labs are pending from today. Status post Walters catheter placement by urology. urine output at 90 -100 mL per hour Objective - Vital Signs Vital signs: Vital Signs Temp 97.8 F 04/10/24 00:00 Pulse 74 04/10/24 11:00 Resp 14 04/10/24 11:00 BP 139/55 04/10/24 11:00 Pulse Ox 92 L 04/10/24 11:00 FiO2 Intake & Output 04/09/24 04/10/24 04/10/24 18:59 06:59 18:59 Intake Total 1941.5 1626.97 897.783 Output Total 150 220 840 Balance 1791.5 1406.97 57.783 Weight 59.8 kg Intake: IV 650 Fluconazole in NaCl,Iso- 50 Osm 100 mg In Saline 1 50ml.bag @ 50 mls/hr IVPB DAILY [facility] Rx#:[id number] Lactated Ringers 1,000 ml 500 @ 125 mls/hr IV .Q8H [facility] Rx#:[id number] Piperacillin-Tazobactam 3 100 .375 gm In Sodium Chloride 0.9% 100 ml @ 25 mls/hr IVPB Q12H [facility] Rx# :[id number] Intake, IV Titration 1941.5 1626.97 247.783 Amount Amiodarone 360 mg In 166.5 33.3 Dextrose 5% in Water 200 ml @ 1 MG/MIN 33.333 mls/ hr IV .Q6H [facility] Rx#: [id number] Amiodarone 450 mg In 183.67 16.7 Dextrose 5% in Water 250 ml @ 0.5 MG/MIN 16.667 mls/hr IV .Q15H [facility] Rx#: [id number] Dextrose 5% in Water 100 100 ml @ 618 mls/hr IV .Q10M [facility] with Amiodarone 150 mg Rx#:[id number] Diltiazem 125 mg In 25 60 106.083 Sodium Chloride 0.9% 100 ml @ 5 MG/HR 5 mls/hr IV .Q24H [facility] Rx#:[id number] Fluconazole in NaCl,Iso- 50 Osm 100 mg In Saline 1 50ml.bag @ 50 mls/hr IVPB DAILY [facility] Rx#:[id number] Lactated Ringers 1,000 ml 1500 1250 125 @ 125 mls/hr IV .Q8H [facility] Rx#:[id number] Piperacillin-Tazobactam 3 100 .375 gm In Sodium Chloride 0.9% 100 ml @ 25 mls/hr IVPB Q12H [facility] Rx# :[id number] Piperacillin-Tazobactam 3 100 .375 gm In Sodium Chloride 0.9% 100 ml @ 25 mls/hr IVPB Q8HR [facility] Rx# :[id number] Output: Drainage 0 20 Lower Abdomen 0 20 Urine 150 200 840 Other: Voiding Method Incontinent External Catheter # Voids 1 1 # Bowel Movements 0 ABP, PAP, CO, CI - Last Documented Arterial Blood Pressure 90/59 - Exam patient is awake, comfortable, no acute distress. Examination of the heart S1 and S2 Examination of the lungs decreased breath sounds at the bases Abdomen is soft Examination lower extremity shows no significant edema. - Labs CBC & Chem 7: 04/09/24 05:19 04/09/24 05:19 Labs: Abnormal Lab Results - Last 24 Hours (Table) 04/10/24 Range/Units 06:49 POC Glucose (mg/dL) 159 H (70-110) mg/dL Assessment and Plan Assessment: 1. Acute kidney injury, ATN currently nonoliguric. UA is quite benign. No evidence of obstruction on CT of the abdomen. 2. Non-gap metabolic acidosis secondary to acute kidney injury. 3. Perforated duodenal ulcer status post explorative laparotomy with tato patch on 04/09/2024 4. Status post fall with rib fractures 5. A. fib with RVR maintained on amiodarone drip Plan: continue with IV fluids. repeat labs today and in a.m.
--- NOTE | 2024-04-10 11:57 | P.PN ---
Subjective Progress Note Date: 04/09/24 88-year-old female who fell about 2 weeks ago and sustained some bruising to her ribs who was brought in today at the behest of a neighbor for evaluation of weakness failure to thrive decreased oral intake suspected dehydration no complaints of cough shortness of breath fever chills sweats no nausea vomiting she states she has not had a bowel movement for 4 days no dysuria. Per the neighbor came in with the patient she is just demonstrating decreased inability to perform activities of daily living.. The patient was somewhat confused on the year on initial evaluation however she did recall it was finally 2023. He apparently was somewhat confused as to how long ago her fall was. Patient was worked up in ED which revealed with the blood work white blood count of 36.2, hemoglobin of 11.4 and platelet count of 467, sodium 132, potassium 4.3, BUNs/creatinine of 118/3.27 and blood glucose of 120, lipase of 69 UA is unremarkable except for trace protein Given markedly elevated white blood count with no source of infection and suspicion for free air under right hemidiaphragm, CT of the abdomen and pelvis was ordered in ED and completed and resulted later CT of the brain was negative for any acute intracranial process Chest x-ray reveals no acute pulmonary disease. Lucency underneath the right hemidiaphragm. Free air not excluded. CT of the abdomen recommended Patient was initially called and admitted under our service for weakness and adult failure to thrive with marked leukocytosis; patient was placed on IV Rocephin and ID consultation along with nephrology consultation was placed for acute renal failure -Patient was placed on IV fluids in form of normal saline -CT of the abdomen and pelvis later resulted and revealed evidence of pneumoperitoneum likely secondary to perforated duodenal ulcer, ascites, fluid adjacent to spleen suggesting hemorrhagic content and therefore splenic subcapsular hematoma. There are couple of fractured adjacent ribs Patient was discussed with trauma surgery at that point and primary service was changed to Trauma with plans to take patient to the OR for an emergency exploratory laparotomy 04/09/2024 Patient is seen and evaluated in ICU with nursing staff at bedside; patient reports fair pain control Patient is status post exploratory laparotomy for pneumoperitoneum. Patient was found to have perforated duodenal ulcer. Patient had modified Lee patch Patient continues to have NG tube to suction Vital signs are reviewed and remained stable Blood work reveals a WBC of 28.6, hemoglobin of 10.7 and platelet count of 449, sodium 136, potassium 3.9, BUNs/creatinine of 97/2.45 Patient remains on IV antibiotics in form of Zosyn. Fluconazole is added per pharmacy assistant recommendations Objective - Vital Signs Vital signs: Vital Signs Temp 97.9 F 04/09/24 09:00 Pulse 77 04/09/24 09:00 Resp 12 04/09/24 09:00 BP 105/49 04/09/24 09:00 Pulse Ox 96 04/09/24 09:00 FiO2 Intake & Output 04/08/24 04/09/24 04/09/24 18:59 06:59 18:59 Intake Total 1175 425 Output Total 50 Balance 1125 425 Weight 54.885 kg 56.8 kg Intake: IV 800 Intake, IV Titration 375 425 Amount Lactated Ringers 1,000 ml 375 375 @ 125 mls/hr IV .Q8H [facility] Rx#:[id number] Piperacillin-Tazobactam 3 50 .375 gm In Sodium Chloride 0.9% 100 ml @ 25 mls/hr IVPB Q8HR [facility] Rx# :[id number] Output: Estimated Blood Loss 50 Other: # Voids 1 ABP, PAP, CO, CI - Last Documented Arterial Blood Pressure 107/56 - Exam General appearance: alert, in no apparent distress Head exam: Present: atraumatic, normocephalic, normal inspection Eye exam: Present: normal appearance, PERRL, EOMI. Absent: scleral icterus, conjunctival injection, periorbital swelling ENT exam: Present: mucous membranes dry Neck exam: Present: normal inspection, full ROM, other (No stridor JVD or bruits). Absent: tenderness, meningismus, lymphadenopathy Respiratory exam: Present: normal lung sounds bilaterally, chest wall tenderness (Mild tenderness to palpation over the bilateral lower lateral ribs no step-off or crepitation). Absent: respiratory distress, wheezes, rales, rhonchi, stridor Cardiovascular Exam: Present: regular rate, normal rhythm, normal heart sounds. Absent: systolic murmur, diastolic murmur, rubs, gallop, clicks GI/Abdominal exam: Present: soft, normal bowel sounds. Absent: distended, tenderness, guarding, rebound, rigid Extremities exam: Present: normal inspection, full ROM, normal capillary refill. Absent: tenderness, pedal edema, joint swelling, calf tenderness Neurological exam: Present: alert, oriented X3, CN II-XII intact Skin exam: Present: warm, dry, intact, normal color. Absent: liliam - Labs CBC & Chem 7: 04/09/24 05:19 04/09/24 05:19 Labs: Abnormal Lab Results - Last 24 Hours (Table) 04/08/24 04/08/24 04/08/24 Range/Units 17:34 17:34 18:30 WBC 36.2 H (3.8-10.6) k/uL RBC (3.80-5.40) m/uL Hgb (11.4-16.0) gm/dL Hct (34.0-46.0) % Plt Count 467 H (150-450) k/uL Neutrophils # (1.3-7.7) k/uL Neutrophils # (Manual) 34.00 H (1.3-7.7) k/uL Lymphocytes # (1.0-4.8) k/uL Lymphocytes # (Manual) 0.72 L (1.0-4.8) k/uL Monocytes # (Manual) 1.81 H (0-1.0) k/uL Sodium 132 L (137-145) mmol/L Chloride (98-107) mmol/L Carbon Dioxide 18 L (22-30) mmol/L BUN 118 H* (7-17) mg/dL Creatinine 3.27 H (0.52-1.04) mg/dL Glucose 128 H (74-99) mg/dL Calcium (8.4-10.2) mg/dL AST 44 H (14-36) U/L Total Protein 5.1 L (6.3-8.2) g/dL Albumin 2.6 L (3.5-5.0) g/dL Urine Protein Trace H (Negative) 04/09/24 04/09/24 04/09/24 Range/Units 00:30 05:19 05:19 WBC 22.6 H 28.6 H (3.8-10.6) k/uL RBC 3.60 L (3.80-5.40) m/uL Hgb 10.7 L D (11.4-16.0) gm/dL Hct 33.3 L (34.0-46.0) % Plt Count (150-450) k/uL Neutrophils # 20.7 H 27.7 H (1.3-7.7) k/uL Neutrophils # (Manual) (1.3-7.7) k/uL Lymphocytes # 0.9 L 0.3 L (1.0-4.8) k/uL Lymphocytes # (Manual) (1.0-4.8) k/uL Monocytes # (Manual) (0-1.0) k/uL Sodium 136 L (137-145) mmol/L Chloride 109 H (98-107) mmol/L Carbon Dioxide 17 L (22-30) mmol/L BUN 97 H (7-17) mg/dL Creatinine 2.45 H (0.52-1.04) mg/dL Glucose 115 H (74-99) mg/dL Calcium 7.8 L (8.4-10.2) mg/dL AST (14-36) U/L Total Protein (6.3-8.2) g/dL Albumin (3.5-5.0) g/dL Urine Protein (Negative) Assessment and Plan Assessment: 1. Perforated abdominal viscus/perforated duodenal ulcer -- Patient had an x-ray performed of the chest which revealed suspicion of pneumoperitoneum; was followed by CT of the abdomen and pelvis which revealed pneumoperitoneum suspicion for perforated ulcer, possible splenic laceration with hematoma without rupture of the capsule and left-sided rib fractures -- Patient has been placed on IV Zosyn; she did receive 1 dose of IV Rocephin initially which is now discontinued -Trauma surgery to evaluate patient and patient will be taken to the OR for likely exploratory laparotomy 2. Hematoma of spleen without rupture of capsule; trauma surgery to evaluate patient and make recommendations 3. Acute renal injury/dehydration; patient has been placed on IV fluid hydration form of normal saline at rate of 100 cc an hour; will monitor strict JEANNETTE's, daily weights, renal function electrolytes; nephrotoxins and hypotension -- Renal ultrasound is ordered and pending; consult nephrology 4. Leukocytosis/sepsis; likely related to perforated viscus; patient has rec eived 1 dose of IV Rocephin 2 g; currently on IV Zosyn; patient has been pancultured -- Will monitor CBC, CRP and procalcitonin -ID is consulted for further recommendations on antibiotic therapy 5. Mild hyponatremia; patient remains on IV fluids in form of normal saline; monitor electrolytes closely 6. Fall/left-sided rib fractures/debility -- Patient is recommended incentive spirometry every to 2 hours while awake; pain management -- PT/OT consulted VTE prophylaxis; SCDs only given need for surgical procedure CODE STATUS; full code
[2024-04-10 12:21] LABS: Glucose,Whole Blood 154 mg/dL (70-110)
--- NOTE | 2024-04-10 13:08 | P.PN ---
Subjective Progress Note Date: 04/10/24 Principal diagnosis: Perforated viscus. This is an 88-year-old female, recent history of fall about 2 weeks ago, sustained bruising to her left ribs. Patient was brought in yesterday to the ER mostly with symptoms of weakness, failure to thrive, poor oral intake, and suspected dehydration. Patient was also complaining of cough and shortness of breath, no fever no chills, no nausea no vomiting. In addition the patient had no bowel movement for the last 4 days. Apparently the patient has been experiencing intermittent episodes of confusion for the last 1 year. Workup in the ER included a CT of the abdomen and pelvis, it showed pneumoperitoneum and free fluid. Patient was felt that she has ruptured viscus, she was seen by surgery and she underwent exploratory laparotomy for her pneumoperitoneum, and she was found to have perforated duodenal ulcer. Patient had modified Lee patch and postoperatively the patient was extubated nonetheless she was admitted to the ICU, and this consult was initiated. I saw the patient in the ICU this morning, she is on 4 L nasal cannula, does not seem to be in any distress. She is already on Zosyn, and I added Diflucan. She is on LR at 125 cc/h. Her WBC count is 28.6, electrolytes are normal hemoglobin is 10.7 BUN is 97 creatinine down to 2.45 from 3.27 yesterday. Progress note dated April 10, 2024. 88-year-old female seen yesterday in consultation. She was admitted on April 08, with confusion and weakness. The patient had a repair of a perforated duodenal ulcer on April 09. Today is postop day #1. She is currently seen today in room 261. She is currently on 6 L of oxygen by nasal cannula. She has an NG tube in place. She is getting lactated Ringer's at 125 cc an hour. For atrial fibrillation with a rapid ventricular response, she was started on Cardizem drip at 5 mg an hour, and amiodarone 0.5 mg/min. No new labs today other than a glucose of 154. The labs from yesterday are reviewed. White count was 28.6. Hemoglobin 10.7, platelet count was normal. BUN and creatinine were 97 and 2.45. Chest x-ray suggested bilateral pleural effusions. Objective - Vital Signs Vital signs: Vital Signs Temp 97.8 F 04/10/24 00:00 Pulse 80 04/10/24 12:30 Resp 16 04/10/24 12:30 BP 127/53 04/10/24 12:30 Pulse Ox 92 L 04/10/24 12:30 FiO2 Intake & Output 04/09/24 04/10/24 04/10/24 18:59 06:59 18:59 Intake Total 1941.5 1626.97 1272.783 Output Total 150 220 900 Balance 1791.5 1406.97 372.783 Weight 59.8 kg Intake: IV 775 Fluconazole in NaCl,Iso- 50 Osm 100 mg In Saline 1 50ml.bag @ 50 mls/hr IVPB DAILY [facility] Rx#:[id number] Lactated Ringers 1,000 ml 625 @ 125 mls/hr IV .Q8H [facility] Rx#:[id number] Piperacillin-Tazobactam 3 100 .375 gm In Sodium Chloride 0.9% 100 ml @ 25 mls/hr IVPB Q12H [facility] Rx# :[id number] Intake, IV Titration 1941.5 1626.97 497.783 Amount Amiodarone 360 mg In 166.5 33.3 Dextrose 5% in Water 200 ml @ 1 MG/MIN 33.333 mls/ hr IV .Q6H [facility] Rx#: [id number] Amiodarone 450 mg In 183.67 266.7 Dextrose 5% in Water 250 ml @ 0.5 MG/MIN 16.667 mls/hr IV .Q15H [facility] Rx#: [id number] Dextrose 5% in Water 100 100 ml @ 618 mls/hr IV .Q10M [facility] with Amiodarone 150 mg Rx#:[id number] Diltiazem 125 mg In 25 60 106.083 Sodium Chloride 0.9% 100 ml @ 5 MG/HR 5 mls/hr IV .Q24H [facility] Rx#:[id number] Fluconazole in NaCl,Iso- 50 Osm 100 mg In Saline 1 50ml.bag @ 50 mls/hr IVPB DAILY [facility] Rx#:[id number] Lactated Ringers 1,000 ml 1500 1250 125 @ 125 mls/hr IV .Q8H [facility] Rx#:[id number] Piperacillin-Tazobactam 3 100 .375 gm In Sodium Chloride 0.9% 100 ml @ 25 mls/hr IVPB Q12H [facility] Rx# :[id number] Piperacillin-Tazobactam 3 100 .375 gm In Sodium Chloride 0.9% 100 ml @ 25 mls/hr IVPB Q8HR [facility] Rx# :[id number] Output: Drainage 0 20 Lower Abdomen 0 20 Urine 150 200 900 Other: Voiding Method Incontinent Indwelling Catheter External Catheter # Voids 1 1 # Bowel Movements 0 ABP, PAP, CO, CI - Last Documented Arterial Blood Pressure 90/59 - Exam No acute distress, slow to respond verbally, currently on 6 L of oxygen by nasal cannula. HEENT examination is grossly unremarkable. Mucous membranes are moist. No oral lesions. Neck supple. Full range of motion. No adenopathy thyromegaly or neck vein distention. Cardiovascular examination reveals regular rhythm rate. S1-S2 normal. No S3 or S4. No discernible murmur noted. Heart rate is 80 bpm. Lungs reveal rhonchi. No wheezes or crackles. Breath sounds equal. Saturations are 93%. Abdomen soft, without bowel sounds. Abdominal incision is dressed. Extremities are intact. No cyanosis clubbing or edema. Skin is without rash or lesion. Neurologic examination is brief but nonfocal. - Labs CBC & Chem 7: 04/09/24 05:19 04/09/24 05:19 Labs: Abnormal Lab Results - Last 24 Hours (Table) 04/10/24 04/10/24 Range/Units 06:49 12:19 POC Glucose (mg/dL) 159 H 154 H (70-110) mg/dL Assessment and Plan Assessment: Postoperative day #1, S/P exploratory laparotomy, repair of perforated duodenal ulcer, and application of a modified Lee patch. Acute abdominal sepsis. Acute atrial fibrillation, with rapid ventricular response. History of splenic hematoma, without rupture. Acute dehydration with acute kidney injury. Nonanion gap metabolic acidosis. Leukocytosis, secondary to sepsis. Hypovolemic hyponatremia, recovered. General medical debility. Plan: Plan dated April 10, 2024. The patient had surgery done yesterday, she had an exploratory laparotomy, and repair of a perforated duodenal ulcer. She is currently on 6 L nasal cannula. She did develop some atrial fibrillation with RVR overnight. She was placed on both Cardizem drip, and amiodarone drip. Labs, x-rays, and medications are all reviewed. We will continue to follow the patient, make recommendations along the way. Prognosis is guarded. Time with Patient: Less than 30
[2024-04-10 13:12] LABS: African American GFR (CKD) 27 (>60 ml/min/1.73 sqM); Anion Gap 7 mmol/L; Blood Urea Nitrogen 79 mg/dL (7-17); Calcium 8.7 mg/dL (8.4-10.2); Carbon Dioxide 24 mmol/L (22-30); Chloride 111 mmol/L (98-107); Glucose 155 mg/dL (74-99); Non-African American GFR(CKD) 24 (>60 ml/min/1.73 sqM); Potassium 4.2 mmol/L (3.5-5.1); Sodium 142 mmol/L (137-145)
[2024-04-10 13:54] LABS: HCT 36.2 % (34.0-46.0); HGB 11.1 gm/dL (11.4-16.0); MCHC 30.8 g/dL (31.0-37.0); MCV 94.2 fL (80.0-100.0); Mean Platelet Volume 8.7; Platelet Count 459 k/uL (150-450); RBC 3.84 m/uL (3.80-5.40); RDW 13.5 % (11.5-15.5); WBC 33.1 k/uL (3.8-10.6)
[2024-04-10] MEDS: AMIODARONE 450 MG in DEXTROSE 5% IN WATER 250 ML IV SCH (14:02)
[2024-04-10 14:37] LABS: Lymphocytes # (M) 1.66 k/uL (1.0-4.8); Monocytes # (M) 0.99 k/uL (0-1.0); Neutrophils # (M) 30.45 k/uL (1.3-7.7); Neutrophils % (M) 92 %; Nucleated Red Blood Cells 0 /100 WBC (0-0); Total Cells Counted 100
[2024-04-10 14:40] LABS: RBC Morphology Normal
--- NOTE | 2024-04-10 14:48 | P.PN ---
Subjective Progress Note Date: 04/10/24 CHIEF COMPLAINT: Perforated duodenal ulcer HISTORY OF PRESENT ILLNESS: Patient is postop day #1 status post exploratory laparotomy with modified Lee patch for perforated duodenal ulcer. She is currently in the ICU. Her pain is controlled. No bowel activity. She denies any nausea. Chest x-ray reports layering bilateral pleural effusions suggestive versus atelectasis. WBC is up from 28.6-33.1 Hgb 11.1 platelets 459 creatinine 1.86. Patient evaluated by cardiology for A-fib and is currently on a Cardizem and amiodarone drip PHYSICAL EXAM: VITAL SIGNS: Reviewed. GENERAL: Well-developed in no acute distress. ABDOMEN: Soft. Mildly distended. Tender at incision site. Dressing is intact. NEUROLOGIC: Alert and oriented. Cranial nerves II through XII grossly intact. Hard of hearing. ASSESSMENT: 1. Perforated duodenal ulcer status postrepair PLAN: -Continue NG tube for decompression -Keep patient n.p.o. -Continue IV antibiotics -Continue IV Protonix -Continue IV fluids -Hold on starting anticoagulation for afib Physician Loan Servicing Representative note has been reviewed by physician. Signing provider agrees with the documented findings, assessment, and plan of care. I have personally seen and examined the patient, reviewed the PRIVATE EQUITY ASSOCIATE /PAs history, exam and MDM and agree with the assessment and plan as written. Based on total visit time, I have performed more than 50% of the visit. As above: Patient appears comfortable. She is confused at this time. White blood cell count noted. Hemodynamically stable. Continue antibiotics. Continue bowel rest with gastric decompression. Objective - Vital Signs Vital signs: Vital Signs Temp 97.8 F 04/10/24 00:00 Pulse 72 04/10/24 14:00 Resp 18 04/10/24 14:00 BP 134/61 04/10/24 14:00 Pulse Ox 96 04/10/24 13:30 FiO2 Intake & Output 04/09/24 04/10/24 04/10/24 18:59 06:59 18:59 Intake Total 1941.5 1626.97 1522.783 Output Total 662 752 1468 Balance 1791.5 1406.97 522.783 Weight 59.8 kg Intake: IV 1025 Fluconazole in NaCl,Iso- 50 Osm 100 mg In Saline 1 50ml.bag @ 50 mls/hr IVPB DAILY [facility] Rx#:[id number] Lactated Ringers 1,000 ml 875 @ 125 mls/hr IV .Q8H [facility] Rx#:[id number] Piperacillin-Tazobactam 3 100 .375 gm In Sodium Chloride 0.9% 100 ml @ 25 mls/hr IVPB Q12H [facility] Rx# :[id number] Intake, IV Titration 1941.5 1626.97 497.783 Amount Amiodarone 360 mg In 166.5 33.3 Dextrose 5% in Water 200 ml @ 1 MG/MIN 33.333 mls/ hr IV .Q6H [facility] Rx#: [id number] Amiodarone 450 mg In 183.67 266.7 Dextrose 5% in Water 250 ml @ 0.5 MG/MIN 16.667 mls/hr IV .Q15H [facility] Rx#: [id number] Dextrose 5% in Water 100 100 ml @ 618 mls/hr IV .Q10M [facility] with Amiodarone 150 mg Rx#:[id number] Diltiazem 125 mg In 25 60 106.083 Sodium Chloride 0.9% 100 ml @ 5 MG/HR 5 mls/hr IV .Q24H [facility] Rx#:[id number] Fluconazole in NaCl,Iso- 50 Osm 100 mg In Saline 1 50ml.bag @ 50 mls/hr IVPB DAILY [facility] Rx#:[id number] Lactated Ringers 1,000 ml 1500 1250 125 @ 125 mls/hr IV .Q8H [facility] Rx#:[id number] Piperacillin-Tazobactam 3 100 .375 gm In Sodium Chloride 0.9% 100 ml @ 25 mls/hr IVPB Q12H [facility] Rx# :[id number] Piperacillin-Tazobactam 3 100 .375 gm In Sodium Chloride 0.9% 100 ml @ 25 mls/hr IVPB Q8HR [facility] Rx# :[id number] Output: Drainage 0 20 Lower Abdomen 0 20 Urine 023 101 5209 Other: Voiding Method Incontinent Indwelling Catheter External Catheter # Voids 1 1 # Bowel Movements 0 ABP, PAP, CO, CI - Last Documented Arterial Blood Pressure 90/59 - Labs CBC & Chem 7: 04/10/24 12:30 04/10/24 12:30 Labs: Abnormal Lab Results - Last 24 Hours (Table) 04/10/24 04/10/2404/10/24 Range/Units 06:49 12:19 12:30 WBC (3.8-10.6) k/uL Hgb (11.4-16.0) gm/dL MCHC (31.0-37.0) g/dL Plt Count (150-450) k/uL Neutrophils # (Manual) (1.3-7.7) k/uL Chloride 111 H (98-107) mmol/L BUN 79 H (7-17) mg/dL Creatinine 1.86 H (0.52-1.04) mg/dL Glucose 155 H (74-99) mg/dL POC Glucose (mg/dL) 159 H 154 H (70-110) mg/dL 04/10/24 Range/Units 12:30 WBC 33.1 H (3.8-10.6) k/uL Hgb 11.1 L (11.4-16.0) gm/dL MCHC 30.8 L (31.0-37.0) g/dL Plt Count 459 H (150-450) k/uL Neutrophils # (Manual) 30.45 H (1.3-7.7) k/uL Chloride (98-107) mmol/L BUN (7-17) mg/dL Creatinine (0.52-1.04) mg/dL Glucose (74-99) mg/dL POC Glucose (mg/dL) (70-110) mg/dL
--- NOTE | 2024-04-10 17:11 | CA ---
Transthoracic Echo Report Name: Gracie Yao Age: 88 Gender: F : 1935 Exam Date: 04/10/2024 08:24 Exam Location: [facility] Ht (in): 64 Wt (lb): 125 Ordering Physician: Rudy Nichols MD ([id number]) Attending/Referring Phys: Innersole Maker Kely Munguia RDCS Procedure CPT: Indications: assess heart function Cardiac Hx: Technical Quality: Fair Contrast 1: Total Dose (mL): Contrast 2: Total Dose (mL): MEASUREMENTS (Male / Female) Normal Values 2D ECHO LV Diastolic Diameter PLAX 4.0 cm 4.2 - 5.9 / 3.9 - 5.3 cm LV Systolic Diameter PLAX 2.5 cm IVS Diastolic Thickness 0.9 cm 0.6 - 1.0 / 0.6 - 0.9 cm LVPW Diastolic Thickness 0.8 cm 0.6 - 1.0 / 0.6 - 0.9 cm LV Relative Wall Thickness 0.4 LVOT Diameter 1.9 cm LA Volume 44.0 cm??? 18 - 58 / 22 - 52 cm??? LA Volume Index 27.5 cm???/m??? 16 - 28 cm???/m??? Ascending Aorta Diameter 3.5 cm M-MODE LV Diastolic Diameter MM 4.0 cm 4.2 - 5.9 / 3.9 - 5.3 cm LV Systolic Diameter MM 2.4 cm LV Cardiac Index MM Teich 2035.6 cm???/min???m??? IVS Diastolic Thickness MM 1.3 cm 0.6 - 1.0 / 0.6 - 0.9 cm LVPW Diastolic Thickness MM 1.0 cm 0.6 - 1.0 / 0.6 - 0.9 cm LV Relative Wall Thickness MM 0.6 0.24 - 0.42 / 0.22 - 0.42 LV Mass Index MM 96.0 g/m??? 49 - 115 / 43 - 95 g/m??? DOPPLER AV Peak Velocity 128.0 cm/s AV Peak Gradient 6.6 mmHg AV Mean Velocity 71.7 cm/s AV Mean Gradient 2.5 mmHg AV Velocity Time Integral 26.0 cm LVOT Peak Velocity 95.7 cm/s LVOT Peak Gradient 3.7 mmHg LVOT Velocity Time Integral 23.3 cm LVOT Stroke Volume 64.7 cm??? LVOT Stroke Volume Index 40.4 ml/m??? LVOT Cardiac Index 2705.8 cm???/min???m??? AV Area Cont Eq vti 2.5 cm??? AV Area Cont Eq pk 2.1 cm??? MV Area PHT 4.2 cm??? Mitral E Point Velocity 110.6 cm/s Mitral A Point Velocity 123.0 cm/s Mitral E to A Ratio 0.9 MV Deceleration Time 179.5 ms TR Peak Velocity 287.7 cm/s TR Peak Gradient 33.1 mmHg Right Atrial Pressure 5.0 mmHg Pulmonary Artery Systolic Pressu 38.1 mmHg Right Ventricular Systolic Press 38.1 mmHg PV Peak Velocity 69.7 cm/s PV Peak Gradient 1.9 mmHg FINDINGS Left Ventricle Left ventricular ejection fraction is estimated at 60-65 %. Mildly increased left ventricular mass. Mildly increased septal wall thickness. Mildly increased posterior wall thickness. Left ventricular cavity size normal. No obvious regional wall motion abnormalities. Right Ventricle Normal right ventricular size and function. Mildly elevated right ventricular systolic pressure. Right Atrium Normal right atrial size. Left Atrium Normal left atrial size. Mitral Valve Structurally normal mitral valve. No evidence for mitral valve prolapse. No mitral stenosis. Mild mitral regurgitation. Aortic Valve Trileaflet aortic valve. No aortic stenosis. Trace aortic regurgitation. Tricuspid Valve Structurally normal tricuspid valve. No tricuspid stenosis. Mild tricuspid regurgitation. Pulmonic Valve Structurally normal pulmonic valve. No pulmonic stenosis. Trace pulmonic regurgitation. Pericardium No pericardial effusion. Aorta Normal size aortic root and proximal ascending aorta. CONCLUSIONS Left ventricular ejection fraction is estimated at 60-65 %. Mild concentric LVH No obvious regional wall motion abnormality No significant chamber size abnormality No significant valve Previewed by: Dr Peterson Ayala (Electronically Signed) Final Date: 10 April 2024 17:10
--- NOTE | 2024-04-10 17:35 | P.GSCN ---
History of Present Illness Consult date: 04/10/24 Reason for Consult: Urinary retention Walters catheter placement History of present illness: This is an 88-year-old female that underwent an ex lap and repair of a perforated duodenal ulcer. Attempt to place a Walters catheter by the nursing staff was unsuccessful. Bladder scan showed greater than 600 mL, patient does currently have pure wick and is incontinent of urine, no evidence of gross hematuria she denies any dysuria. No previous known history of recurrent UTIs, kidney stones or urinary retention. Urology has been consulted for placement of a Walters catheter given the patient's elevated postvoid residual. Review of Systems - Constitutional Denies fever, Denies weight loss - Cardiovascular Denies chest pain, Denies shortness of breath - Respiratory Denies cough, Denies 7 - Gastrointestinal Reports abdominal pain - Neurological Denies headaches, Denies syncope Past Medical History Additional Past Medical History / Comment(s): slight deafness History of Any Multi-Drug Resistant Organisms: None Reported Past Surgical History: Hysterectomy Past Psychological History: No Psychological Hx Reported Smoking Status: Former smoker Past Alcohol Use History: Occasional Past Drug Use History: None Reported Medications and Allergies Home Medications Medication Instructions Recorded Confirmed Type Lidocaine 5% Patch [Lidoderm] 1 patch TOPICAL DAILY 04/09/24 04/09/24 History traMADol HCL 50 mg PO Q4-6H PRN 04/09/24 04/09/24 History Allergies Allergy/AdvReac Type Severity Reaction Status Date / Time No Known Allergies Allergy Verified 04/09/24 10:53 Surgical - Exam Vital Signs Temp Pulse Resp BP Pulse Ox 98.5 F 95 16 128/58 95 04/08/24 17:21 04/08/24 17:21 04/08/24 17:21 04/08/24 17:21 04/08/24 17:21 - General no distress, moderate pain - Eyes normal ocular movement, no pale - Respiratory normal expansion, normal respiratory effort - Abdomen Abdomen: soft, non tender - Genitourinary Significant vaginal stenosis, unable to visualize the urethral meatus Results - Labs 04/10/24 12:30 04/10/24 12:30 Abnormal Lab Results - Last 24 Hours (Table) 04/10/24 04/10/24 04/10/24 Range/Units 06:49 12:19 12:30 WBC (3.8-10.6) k/uL Hgb (11.4-16.0) gm/dL MCHC (31.0-37.0) g/dL Plt Count (150-450) k/uL Neutrophils # (Manual) (1.3-7.7) k/uL Chloride 111 H (98-107) mmol/L BUN 79 H (7-17) mg/dL Creatinine 1.86 H (0.52-1.04) mg/dL Glucose 155 H (74-99) mg/dL POC Glucose (mg/dL) 159 H 154 H (70-110) mg/dL 04/10/24 Range/Units 12:30 WBC 33.1 H (3.8-10.6) k/uL Hgb 11.1 L (11.4-16.0) gm/dL MCHC 30.8 L (31.0-37.0) g/dL Plt Count 459 H (150-450) k/uL Neutrophils # (Manual) 30.45 H (1.3-7.7) k/uL Chloride (98-107) mmol/L BUN (7-17) mg/dL Creatinine (0.52-1.04) mg/dL Glucose (74-99) mg/dL POC Glucose (mg/dL) (70-110) mg/dL Microbiology - Last 24 Hours (Table) 04/08/24 23:00 Blood Culture - Preliminary Blood 04/08/24 22:45 Blood Culture - Preliminary Blood Diabetes panel 04/10/24 Range/Units 12:30 Sodium 142 (137-145) mmol/L Potassium 4.2 (3.5-5.1) mmol/L Chloride 111 H (98-107) mmol/L Carbon Dioxide 24 (22-30) mmol/L BUN 79 H (7-17) mg/dL Creatinine 1.86 H (0.52-1.04) mg/dL Glucose 155 H (74-99) mg/dL Calcium 8.7 (8.4-10.2) mg/dL Calcium panel 04/10/24 Range/Units 12:30 Calcium 8.7 (8.4-10.2) mg/dL Pituitary panel 04/10/24 Range/Units 12:30 Sodium 142 (137-145) mmol/L Potassium 4.2 (3.5-5.1) mmol/L Chloride 111 H (98-107) mmol/L Carbon Dioxide 24 (22-30) mmol/L BUN 79 H (7-17) mg/dL Creatinine 1.86 H (0.52-1.04) mg/dL Glucose 155 H (74-99) mg/dL Calcium 8.7 (8.4-10.2) mg/dL Adrenal panel 04/10/24 Range/Units 12:30 Sodium 142 (137-145) mmol/L Potassium 4.2 (3.5-5.1) mmol/L Chloride 111 H (98-107) mmol/L Carbon Dioxide 24 (22-30) mmol/L BUN 79 H (7-17) mg/dL Creatinine 1.86 H (0.52-1.04) mg/dL Glucose 155 H (74-99) mg/dL Calcium 8.7 (8.4-10.2) mg/dL Assessment and Plan Assessment: 88-year-old female with postoperative urinary retention, postvoid residual 600 mL, attempted place a Walters catheter by nursing staff unsuccessful. Patient had significant vaginal stenosis and urethral meatal stenosis, I was unable unable to visualize the urethra secondary to her significant vaginal stenosis, I was able to place a 12 Portuguese silicone catheter. At this point recommend keeping the catheter until patient is closer to discharge, at that point she can have a trial of void once she is closer to discharge
--- NOTE | 2024-04-10 17:37 | P.PCN ---
Date of Procedure: 04/10/24 Preoperative Diagnosis: Urinary retention, urethral stricture Postoperative Diagnosis: Same Procedure(s) Performed: Complicated Walters catheter placement Description of Procedure: Patient urethra and vulva was cleaned with Betadine, patient had significant vaginal stenosis, attempted to visualize the urethra but was unable to. Next using a 14 Georgian silicone catheter I attempted to advance the catheter at the anatomical location of the urethral meatus but there was significant resistance met, at this point I switched to a 12 Georgian silicone catheter, I was able to advance the 12 Georgian silicone catheter into the expected anatomical location of the urethra and into the bladder with the return of clear urine, the catheter baloon was inflated to 10 mL. Patient tolerated procedure well
[2024-04-10 23:50] LABS: Glucose,Whole Blood 127 mg/dL (70-110)
[2024-04-11] MEDS: ACETAMINOPHEN IV (For NPO) 1,000 MG in EMPTY BAG 1 BAG IVPB ONE (03:55)
[2024-04-11 05:48] LABS: Glucose,Whole Blood 134 mg/dL (70-110)
[2024-04-11 06:22] LABS: HCT 36.6 % (34.0-46.0); HGB 11.1 gm/dL (11.4-16.0); Hypochromasia Slight; MCH 28.6 pg (25.0-35.0); MCHC 30.3 g/dL (31.0-37.0); MCV 94.4 fL (80.0-100.0); Mean Platelet Volume 8.7; Platelet Count 442 k/uL (150-450); RBC 3.88 m/uL (3.80-5.40); RDW 13.5 % (11.5-15.5); WBC 34.6 k/uL (3.8-10.6)
[2024-04-11 06:33] LABS: ALT 31 U/L (4-34); AST 31 U/L (14-36); African American GFR (CKD) 32 (>60 ml/min/1.73 sqM); Albumin 2.3 g/dL (3.5-5.0); Alkaline Phosphatase 98 U/L (38-126); Anion Gap 7 mmol/L; Blood Urea Nitrogen 71 mg/dL (7-17); Calcium 8.6 mg/dL (8.4-10.2); Carbon Dioxide 23 mmol/L (22-30); Chloride 113 mmol/L (98-107); Glucose 124 mg/dL (74-99); Non-African American GFR(CKD) 28 (>60 ml/min/1.73 sqM); Potassium 4.1 mmol/L (3.5-5.1); Sodium 143 mmol/L (137-145); Total Bilirubin 0.7 mg/dL (0.2-1.3); Total Protein 4.5 g/dL (6.3-8.2)
--- NOTE | 2024-04-11 07:19 | P.PN ---
Subjective Progress Note Date: 04/10/24 Principal diagnosis: Reason for follow-up is perforated duodenal ulcer/peritonitis Patient is a 88-year-old female presenting to the hospital abdominal pain diagnosed with the pneumoperitoneum secondary to the perforated jejunal ulcer status post laparotomy and modified Lee patch. On today's evaluation that is 04/10/2024, Patient is afebrile patient is currently on 4 L nasal oxygen and denies having any shortness of breath, the patient denies any chest pain or cough, the patient denies any nausea vomiting abdominal pain is currently controlled no bowel movement. Patient white count is 33.1 creatinine is 1.86 Objective - Vital Signs Vital signs: Vital Signs Temp 97.8 F 04/10/24 00:00 Pulse 80 04/10/24 12:30 Resp 16 04/10/24 12:30 BP 127/53 04/10/24 12:30 Pulse Ox 92 L 04/10/24 12:30 FiO2 Intake & Output 04/09/24 04/10/24 04/10/24 18:59 06:59 18:59 Intake Total 1941.5 1626.97 1272.783 Output Total 150 220 900 Balance 1791.5 1406.97 372.783 Weight 59.8 kg Intake: IV 775 Fluconazole in NaCl,Iso- 50 Osm 100 mg In Saline 1 50ml.bag @ 50 mls/hr IVPB DAILY [facility] Rx#:[id number] Lactated Ringers 1,000 ml 625 @ 125 mls/hr IV .Q8H [facility] Rx#:[id number] Piperacillin-Tazobactam 3 100 .375 gm In Sodium Chloride 0.9% 100 ml @ 25 mls/hr IVPB Q12H [facility] Rx# :[id number] Intake, IV Titration 1941.5 1626.97 497.783 Amount Amiodarone 360 mg In 166.5 33.3 Dextrose 5% in Water 200 ml @ 1 MG/MIN 33.333 mls/ hr IV .Q6H [facility] Rx#: [id number] Amiodarone 450 mg In 183.67 266.7 Dextrose 5% in Water 250 ml @ 0.5 MG/MIN 16.667 mls/hr IV .Q15H [facility] Rx#: [id number] Dextrose 5% in Water 100 100 ml @ 618 mls/hr IV .Q10M [facility] with Amiodarone 150 mg Rx#:[id number] Diltiazem 125 mg In 25 60 106.083 Sodium Chloride 0.9% 100 ml @ 5 MG/HR 5 mls/hr IV .Q24H [facility] Rx#:[id number] Fluconazole in NaCl,Iso- 50 Osm 100 mg In Saline 1 50ml.bag @ 50 mls/hr IVPB DAILY [facility] Rx#:[id number] Lactated Ringers 1,000 ml 1500 1250 125 @ 125 mls/hr IV .Q8H [facility] Rx#:[id number] Piperacillin-Tazobactam 3 100 .375 gm In Sodium Chloride 0.9% 100 ml @ 25 mls/hr IVPB Q12H [facility] Rx# :[id number] Piperacillin-Tazobactam 3 100 .375 gm In Sodium Chloride 0.9% 100 ml @ 25 mls/hr IVPB Q8HR [facility] Rx# :[id number] Output: Drainage 0 20 Lower Abdomen 0 20 Urine 150 200 900 Other: Voiding Method Incontinent Indwelling Catheter External Catheter # Voids 1 1 # Bowel Movements 0 ABP, PAP, CO, CI - Last Documented Arterial Blood Pressure 90/59 - Exam GENERAL DESCRIPTION: An elderly female lying in bed in no distress RESPIRATORY SYSTEM: Unlabored breathing , decreased breath sounds at bases HEART: S1 S2 regular rate and rhythm , ABDOMEN: Soft , mild tenderness EXTREMITIES: No edema feet - Labs CBC & Chem 7: 04/11/24 05:52 04/11/24 05:52 Labs: Abnormal Lab Results - Last 24 Hours (Table) 04/10/24 04/10/24 04/10/24 Range/Units 06:49 12:19 12:30 Chloride 111 H (98-107) mmol/L BUN 79 H (7-17) mg/dL Creatinine 1.86 H (0.52-1.04) mg/dL Glucose 155 H (74-99) mg/dL POC Glucose (mg/dL) 159 H 154 H (70-110) mg/dL Assessment and Plan (1) Peritonitis Current Visit: Yes Status: Acute Code(s): K65.9 - PERITONITIS, UNSPECIFIED SNOMED Code(s): 95520547 (2) Leukocytosis Current Visit: Yes Status: Acute Code(s): D72.829 - ELEVATED WHITE BLOOD CELL COUNT, UNSPECIFIED SNOMED Code(s): 591690487 (3) Perforated duodenal ulcer Current Visit: Yes Status: Acute Code(s): K26.5 - CHRONIC OR UNSPECIFIED DUODENAL ULCER WITH PERFORATION SNOMED Code(s): 05438992 Plan: 1patient presented to hospital with abdominal pain constipation has been d iagnosed with the pneumoperitoneum secondary to perforated duodenal ulcer status post laparotomy and repair of the perforated jejunal ulcer we will need to confirm that her gram-negative and yeast. 2patient did have elevated white count need to monitor closely follow-up continue Zosyn and Diflucan and continue with supportive care Dictation was produced using [employer] dictation software. please excuse any grammatical, word or spelling errors. Time with Patient: Less than 30
--- NOTE | 2024-04-11 09:00 | P.PN ---
Subjective Progress Note Date: 04/11/24 This is an 80-year-old female with a history of a recent fall about 2 weeks ago who was brought into the emergency department with complaints of weakness and poor oral intake. Patient had an exploratory laparotomy and was found to have a perforated duodenal ulcer with a Lee patch placed. She remains in ICU. She is alert and oriented. She is still significantly weak. 04/11/2024 Patient seen and evaluated sitting in chair at bedside this morning. Yesterday had a salvador catheter placed by urology. Patient reports she is very sore today. Objective - Vital Signs Vital signs: Vital Signs Temp 97.8 F 04/11/24 04:00 Pulse 86 04/11/24 07:00 Resp 17 04/11/24 07:00 BP 148/70 04/11/24 07:00 Pulse Ox 94 L 04/11/24 08:46 FiO2 Intake & Output 04/10/24 04/11/24 04/11/24 18:59 06:59 18:59 Intake Total 5390.592 1170 75 Output Total 1185 700 20 Balance 637.783 300 55 Weight 62.7 kg Intake: IV 1325 1000 75 Fluconazole in NaCl,Iso- 50 Osm 100 mg In Saline 1 50ml.bag @ 50 mls/hr IVPB DAILY [facility] Rx#:[id number] Lactated Ringers 1,000 ml 1175 900 75 @ 75 mls/hr IV .[id number] [facility] Rx#:[id number] Piperacillin-Tazobactam 3 100 100 .375 gm In Sodium Chloride 0.9% 100 ml @ 25 mls/hr IVPB Q12H [facility] Rx# :[id number] Intake, IV Titration 497.783 Amount Amiodarone 450 mg In 266.7 Dextrose 5% in Water 250 ml @ 0.5 MG/MIN 16.667 mls/hr IV .Q15H [facility] Rx#: [id number] Diltiazem 125 mg In 106.083 Sodium Chloride 0.9% 100 ml @ 5 MG/HR 5 mls/hr IV .Q24H [facility] Rx#:[id number] Lactated Ringers 1,000 ml 125 @ 75 mls/hr IV .[id number] [facility] Rx#:[id number] Output: Drainage 5 Lower Abdomen 5 Urine 1185 700 15 Other: Voiding Method Indwelling Catheter Indwelling Catheter ABP, PAP, CO, CI - Last Documented Arterial Blood Pressure 90/59 - Constitutional General appearance: Present: cooperative, no acute distress - EENT Eyes: Present: PERRLA - Neck Neck: Present: normal ROM. Absent: lymphadenopathy, rigidity - Respiratory Respiratory: bilateral: CTA - Cardiovascular Heart sounds: normal: S1, S2 - Gastrointestinal General gastrointestinal: Present: soft. Absent: tenderness - Integumentary Integumentary: Present: normal, normal turgor - Musculoskeletal Musculoskeletal: Present: generalized weakness - Psychiatric Psychiatric: Present: A&O x's 3 - Labs CBC & Chem 7: 04/11/24 05:52 04/11/24 05:52 Labs: Abnormal Lab Results - Last 24 Hours (Table) 04/10/24 04/10/24 04/10/24 Range/Units 12:19 12:30 12:30 WBC 33.1 H (3.8-10.6) k/uL Hgb 11.1 L (11.4-16.0) gm/dL MCHC 30.8 L (31.0-37.0) g/dL Plt Count 459 H (150-450) k/uL Neutrophils # (Manual) 30.45 H (1.3-7.7) k/uL Chloride 111 H (98-107) mmol/L BUN 79 H (7-17) mg/dL Creatinine 1.86 H (0.52-1.04) mg/dL Glucose 155 H (74-99) mg/dL POC Glucose (mg/dL) 154 H (70-110) mg/dL Total Protein (6.3-8.2) g/dL Albumin (3.5-5.0) g/dL 04/10/24 04/11/24 04/11/24 Range/Units 23:48 05:47 05:52 WBC 34.6 H (3.8-10.6) k/uL Hgb 11.1 L (11.4-16.0) gm/dL MCHC 30.3 L (31.0-37.0) g/dL Plt Count (150-450) k/uL Neutrophils # (Manual) (1.3-7.7) k/uL Chloride (98-107) mmol/L BUN (7-17) mg/dL Creatinine (0.52-1.04) mg/dL Glucose (74-99) mg/dL POC Glucose (mg/dL) 127 H 134 H (70-110) mg/dL Total Protein (6.3-8.2) g/dL Albumin (3.5-5.0) g/dL 04/11/24 Range/Units 05:52 WBC (3.8-10.6) k/uL Hgb (11.4-16.0) gm/dL MCHC (31.0-37.0) g/dL Plt Count (150-450) k/uL Neutrophils # (Manual) (1.3-7.7) k/uL Chloride 113 H (98-107) mmol/L BUN 71 H (7-17) mg/dL Creatinine 1.64 H (0.52-1.04) mg/dL Glucose 124 H (74-99) mg/dL POC Glucose (mg/dL) (70-110) mg/dL Total Protein 4.5 L (6.3-8.2) g/dL Albumin 2.3 L (3.5-5.0) g/dL Microbiology - Last 24 Hours (Table) 04/08/24 23:00 Blood Culture - Preliminary Blood 04/08/24 22:45 Blood Culture - Preliminary Blood Assessment and Plan (1) Dehydration Current Visit: Yes Status: Acute Code(s): E86.0 - DEHYDRATION SNOMED Code(s): 88032519 (2) Acute kidney injury Current Visit: Yes Status: Acute Code(s): N17.9 - ACUTE KIDNEY FAILURE, UNSPECIFIED SNOMED Code(s): 04508482 (3) Hematoma of spleen without rupture of capsule Current Visit: Yes Status: Acute Code(s): D73.5 - INFARCTION OF SPLEEN SNOMED Code(s): 107066648 (4) Fall Current Visit: No Status: Acute Code(s): W19.XXXA - UNSPECIFIED FALL, INITIAL ENCOUNTER SNOMED Code(s): 5783986 (5) Ribs, multiple fractures Current Visit: No Status: Acute Code(s): S22.49XA - MULTIPLE FRACTURES OF RIBS, UNSP SIDE, INIT FOR CLOS FX SNOMED Code(s): 3683377 (6) Perforated duodenal ulcer Current Visit: Yes Status: Acute Code(s): K26.5 - CHRONIC OR UNSPECIFIED DUODENAL ULCER WITH PERFORATION SNOMED Code(s): 65369986 Plan: Appreciate multiple consultants. Check CBC and CMP in the morning. Patient seen and evaluated by nurse practitioner, physician in agreement with plan
--- NOTE | 2024-04-11 10:49 | P.PN ---
Subjective Progress Note Date: 04/11/24 Principal diagnosis: Perforated viscus. This is an 88-year-old female, recent history of fall about 2 weeks ago, sustained bruising to her left ribs. Patient was brought in yesterday to the ER mostly with symptoms of weakness, failure to thrive, poor oral intake, and suspected dehydration. Patient was also complaining of cough and shortness of breath, no fever no chills, no nausea no vomiting. In addition the patient had no bowel movement for the last 4 days. Apparently the patient has been experiencing intermittent episodes of confusion for the last 1 year. Workup in the ER included a CT of the abdomen and pelvis, it showed pneumoperitoneum and free fluid. Patient was felt that she has ruptured viscus, she was seen by surgery and she underwent exploratory laparotomy for her pneumoperitoneum, and she was found to have perforated duodenal ulcer. Patient had modified Lee patch and postoperatively the patient was extubated nonetheless she was admitted to the ICU, and this consult was initiated. I saw the patient in the ICU this morning, she is on 4 L nasal cannula, does not seem to be in any distress. She is already on Zosyn, and I added Diflucan. She is on LR at 125 cc/h. Her WBC count is 28.6, electrolytes are normal hemoglobin is 10.7 BUN is 97 creatinine down to 2.45 from 3.27 yesterday. Progress note dated April 10, 2024. 88-year-old female seen yesterday in consultation. She was admitted on April 08, with confusion and weakness. The patient had a repair of a perforated duodenal ulcer on April 09. Today is postop day #1. She is currently seen today in room 261. She is currently on 6 L of oxygen by nasal cannula. She has an NG tube in place. She is getting lactated Ringer's at 125 cc an hour. For atrial fibrillation with a rapid ventricular response, she was started on Cardizem drip at 5 mg an hour, and amiodarone 0.5 mg/min. No new labs today other than a glucose of 154. The labs from yesterday are reviewed. White count was 28.6. Hemoglobin 10.7, platelet count was normal. BUN and creatinine were 97 and 2.45. Chest x-ray suggested bilateral pleural effusions. Progress note dated April 11, 2024. 88-year-old female seen today in room 261. The patient was admitted on April 08, with confusion and weakness. The patient was discovered to have a perforated duodenal ulcer, and had a surgical repair performed on April 09. Today is postop day #2. The patient is currently without distress. She is on room air. NG tube remains in place. She is getting lactated Ringer's at 75 cc an hour. Because of atrial fibrillation and RVR, she continues on amiodarone 0.5 mg/min, and Cardizem at 5 mg an hour. Lab data includes a white count 34.6, hemoglobin 9.1, hematocrit 36.6, and a platelet count 442,000. Sodium 143, potassium 4.1, chlorides 113, CO2 23, BUN 71, creatinine 1.64. Glucose is 134. Albumin is 2.3. Blood cultures are currently negative. No chest x-ray today has been ordered. Objective - Vital Signs Vital signs: Vital Signs Temp 97.8 F 04/11/24 04:00 Pulse 79 04/11/24 10:00 Resp 16 04/11/24 10:00 BP 146/64 04/11/24 10:00 Pulse Ox 95 04/11/24 10:00 FiO2 Intake & Output 04/10/24 04/11/24 04/11/24 18:59 06:59 18:59 Intake Total 6395.034 2535 300 Output Total 1185 700 20 Balance 637.783 300 280 Weight 62.7 kg Intake: IV 1325 1000 300 Fluconazole in NaCl,Iso- 50 Osm 100 mg In Saline 1 50ml.bag @ 50 mls/hr IVPB DAILY [facility] Rx#:[id number] Lactated Ringers 1,000 ml 1175 900 300 @ 75 mls/hr IV .[id number] [facility] Rx#:[id number] Piperacillin-Tazobactam 3 100 100 .375 gm In Sodium Chloride 0.9% 100 ml @ 25 mls/hr IVPB Q12H [facility] Rx# :[id number] Intake, IV Titration 497.783 Amount Amiodarone 450 mg In 266.7 Dextrose 5% in Water 250 ml @ 0.5 MG/MIN 16.667 mls/hr IV .Q15H [facility] Rx#: [id number] Diltiazem 125 mg In 106.083 Sodium Chloride 0.9% 100 ml @ 5 MG/HR 5 mls/hr IV .Q24H [facility] Rx#:[id number] Lactated Ringers 1,000 ml 125 @ 75 mls/hr IV .[id number] [facility] Rx#:[id number] Output: Drainage 5 Lower Abdomen 5 Urine 1185 700 15 Other: Voiding Method Indwelling Catheter Indwelling Catheter ABP, PAP, CO, CI - Last Documented Arterial Blood Pressure 90/59 - Exam No acute distress, slow to respond verbally, currently on room air. HEENT examination is grossly unremarkable. Mucous membranes are moist. No oral lesions. Neck supple. Full range of motion. No adenopathy thyromegaly or neck vein distention. Cardiovascular examination reveals regular rhythm rate. S1-S2 normal. No S3 or S4. No discernible murmur noted. Heart rate is 79 bpm. Lungs reveal rhonchi. No wheezes or crackles. Breath sounds equal. Saturatio ns are 95 %. Abdomen soft, without bowel sounds. Abdominal incision is dressed. Extremities are intact. No cyanosis clubbing or edema. Skin is without rash or lesion. Neurologic examination is brief but nonfocal. - Labs CBC & Chem 7: 04/11/24 05:52 04/11/24 05:52 Labs: Abnormal Lab Results - Last 24 Hours (Table) 04/10/24 04/10/24 04/10/24 Range/Units 12:19 12:30 12:30 WBC 33.1 H (3.8-10.6) k/uL Hgb 11.1 L (11.4-16.0) gm/dL MCHC 30.8 L (31.0-37.0) g/dL Plt Count 459 H (150-450) k/uL Neutrophils # (Manual) 30.45 H (1.3-7.7) k/uL Chloride 111 H (98-107) mmol/L BUN 79 H (7-17) mg/dL Creatinine 1.86 H (0.52-1.04) mg/dL Glucose 155 H (74-99) mg/dL POC Glucose (mg/dL) 154 H (70-110) mg/dL Total Protein (6.3-8.2) g/dL Albumin (3.5-5.0) g/dL 04/10/24 04/11/24 04/11/24 Range/Units 23:48 05:47 05:52 WBC 34.6 H (3.8-10.6) k/uL Hgb 11.1 L (11.4-16.0) gm/dL MCHC 30.3 L (31.0-37.0) g/dL Plt Count (150-450) k/uL Neutrophils # (Manual) (1.3-7.7) k/uL Chloride (98-107) mmol/L BUN (7-17) mg/dL Creatinine (0.52-1.04) mg/dL Glucose (74-99) mg/dL POC Glucose (mg/dL) 127 H 134 H (70-110) mg/dL Total Protein (6.3-8.2) g/dL Albumin (3.5-5.0) g/dL 04/11/24 Range/Units 05:52 WBC (3.8-10.6) k/uL Hgb (11.4-16.0) gm/dL MCHC (31.0-37.0) g/dL Plt Count (150-450) k/uL Neutrophils # (Manual) (1.3-7.7) k/uL Chloride 113 H (98-107) mmol/L BUN 71 H (7-17) mg/dL Creatinine 1.64 H (0.52-1.04) mg/dL Glucose 124 H (74-99) mg/dL POC Glucose (mg/dL) (70-110) mg/dL Total Protein 4.5 L (6.3-8.2) g/dL Albumin 2.3 L (3.5-5.0) g/dL Microbiology - Last 24 Hours (Table) 04/08/24 23:00 Blood Culture - Preliminary Blood 04/08/24 22:45 Blood Culture - Preliminary Blood Assessment and Plan Assessment: Postoperative day #2, S/P exploratory laparotomy, repair of perforated duodenal ulcer, and application of a modified Lee patch. Acute abdominal sepsis. Acute atrial fibrillation, with rapid ventricular response. History of splenic hematoma, without rupture. Acute dehydration with acute kidney injury. Nonanion gap metabolic acidosis. Leukocytosis, secondary to sepsis. Hypovolemic hyponatremia, recovered. General medical debility. Plan: Plan dated April 10, 2024. The patient had surgery done yesterday, she had an exploratory laparotomy, and repair of a perforated duodenal ulcer. She is currently on 6 L nasal cannula. She did develop some atrial fibrillation with RVR overnight. She was placed on both Cardizem drip, and amiodarone drip. Labs, x-rays, and medications are all reviewed. We will continue to follow the patient, make recommendations along the way. Prognosis is guarded. Plan dated April 11, 2024. The patient appears to be doing relatively well. She still has an NG tube in place. She still NPO. She continues on Cardizem, and amiodarone, for atrial fibrillation with RVR. Labs, x-rays, and medications are reviewed. The patient remains on room air. NG tube remains in place. She is getting lactated Ringer's at 75 cc an hour. We will continue to follow make recommendations along the way. The patient's overall prognosis remains very guarded. Time with Patient: Greater than 30
--- NOTE | 2024-04-11 11:38 | P.PN ---
Subjective patient is seen for follow-up for acute kidney injury. Currently maintained on IV fluids. Decreased to 70 mL an hour. Serum creatinine has improved to 1.6 today. Status post Walters catheter placement by urology UOP dropped again today at 0-15 mL per hour. The Walters catheter could not be flushed and a new catheter is being placed. Objective - Vital Signs Vital signs: Vital Signs Temp 97.7 F 04/11/24 08:00 Pulse 75 04/11/24 11:00 Resp 14 04/11/24 11:00 BP 136/57 04/11/24 11:00 Pulse Ox 93 L 04/11/24 11:00 FiO2 Intake & Output 04/10/24 04/11/24 04/11/24 18:59 06:59 18:59 Intake Total 4161.513 5296 525 Output Total 1185 700 345 Balance 637.783 300 180 Weight 62.7 kg Intake: IV 1325 1000 525 Fluconazole in NaCl,Iso- 50 50 Osm 100 mg In Saline 1 50ml.bag @ 50 mls/hr IVPB DAILY [facility] Rx#:[id number] Lactated Ringers 1,000 ml 1175 900 375 @ 75 mls/hr IV .[id number] [facility] Rx#:[id number] Piperacillin-Tazobactam 3 100 100 100 .375 gm In Sodium Chloride 0.9% 100 ml @ 25 mls/hr IVPB Q12H [facility] Rx# :[id number] Intake, IV Titration 497.783 Amount Amiodarone 450 mg In 266.7 Dextrose 5% in Water 250 ml @ 0.5 MG/MIN 16.667 mls/hr IV .Q15H [facility] Rx#: [id number] Diltiazem 125 mg In 106.083 Sodium Chloride 0.9% 100 ml @ 5 MG/HR 5 mls/hr IV .Q24H [facility] Rx#:[id number] Lactated Ringers 1,000 ml 125 @ 75 mls/hr IV .[id number] [facility] Rx#:[id number] Output: Drainage 5 Lower Abdomen 5 Urine 1185 700 340 Other: Voiding Method Indwelling Catheter Indwelling Catheter ABP, PAP, CO, CI - Last Documented Arterial Blood Pressure 90/59 - Exam patient is awake, comfortable, no acute distress. Examination of the heart S1 and S2 Examination of the lungs decreased breath sounds at the bases Abdomen is soft Examination lower extremity shows no significant edema. LITHOGRAPHY CONTACT WORKER exam grossly intact - Labs CBC & Chem 7: 04/11/24 05:52 04/11/24 05:52 Labs: Abnormal Lab Results - Last 24 Hours (Table) 04/10/24 04/10/24 04/10/24 Range/Units 12:19 12:30 12:30 WBC 33.1 H (3.8-10.6) k/uL Hgb 11.1 L (11.4-16.0) gm/dL MCHC 30.8 L (31.0-37.0) g/dL Plt Count 459 H (150-450) k/uL Neutrophils # (Manual) 30.45 H (1.3-7.7) k/uL Chloride 111 H (98-107) mmol/L BUN 79 H (7-17) mg/dL Creatinine 1.86 H (0.52-1.04) mg/dL Glucose 155 H (74-99) mg/dL POC Glucose (mg/dL) 154 H (70-110) mg/dL Total Protein (6.3-8.2) g/dL Albumin (3.5-5.0) g/dL 04/10/24 04/11/24 04/11/24 Range/Units 23:48 05:47 05:52 WBC 34.6 H (3.8-10.6) k/uL Hgb 11.1 L (11.4-16.0) gm/dL MCHC 30.3 L (31.0-37.0) g/dL Plt Count (150-450) k/uL Neutrophils # (Manual) (1.3-7.7) k/uL Chloride (98-107) mmol/L BUN (7-17) mg/dL Creatinine (0.52-1.04) mg/dL Glucose (74-99) mg/dL POC Glucose (mg/dL) 127 H 134 H (70-110) mg/dL Total Protein (6.3-8.2) g/dL Albumin (3.5-5.0) g/dL 04/11/24 Range/Units 05:52 WBC (3.8-10.6) k/uL Hgb (11.4-16.0) gm/dL MCHC (31.0-37.0) g/dL Plt Count (150-450) k/uL Neutrophils # (Manual) (1.3-7.7) k/uL Chloride 113 H (98-107) mmol/L BUN 71 H (7-17) mg/dL Creatinine 1.64 H (0.52-1.04) mg/dL Glucose 124 H (74-99) mg/dL POC Glucose (mg/dL) (70-110) mg/dL Total Protein 4.5 L (6.3-8.2) g/dL Albumin 2.3 L (3.5-5.0) g/dL Microbiology - Last 24 Hours (Table) 04/08/24 23:00 Blood Culture - Preliminary Blood 04/08/24 22:45 Blood Culture - Preliminary Blood Assessment and Plan Assessment: 1. Acute kidney injury, ATN currently nonoliguric. UA is quite benign. No evidence of obstruction on CT of the abdomen. 2. Non-gap metabolic acidosis secondary to acute kidney injury. 3. Perforated duodenal ulcer status post explorative laparotomy with tato patch on 04/09/2024 4. Status post fall with rib fractures 5. A. fib with RVR status post amiodarone drip 6. Obstructed Walters catheter currently being replaced. Plan: continue with IV fluids. repeat labs today and in a.m.
--- NOTE | 2024-04-11 11:48 | PN ---
PROGRESS NOTE 88-year-old lady who is admitted to hospital with a perforated duodenum and underwent surgery for the same. We are involved in her care because of paroxysmal atrial fibrillation. Surgery did not want her to be anticoagulated. She is currently in sinus rhythm, on intravenous amiodarone, and she is also on Cardizem. PHYSICAL EXAMINATION: VITAL SIGNS: Heart rate is 70 beats per minute, blood pressure is 146/64, respiratory rate is 18. CHEST: Exam reveals good air entry bilaterally. HEART: Exam reveals first and second heart sounds, and a systolic murmur at the left lower sternal border. ABDOMEN: Soft. EXTREMITIES: Mild edema. Peripheral pulses are felt. LABORATORY DATA: Show that the hemoglobin is 11.1, platelet count is 440, potassium is 4.1, BUN is 71 with a creatinine of 1.6. ASSESSMENT AND PLAN: Paroxysmal atrial fibrillation. I will continue the IV amiodarone as the patient is not able to take any oral medications. When she is able to, we will switch her to oral amiodarone. MMODL / IJN: [id number] /
--- NOTE | 2024-04-11 12:17 | P.PN ---
Subjective Progress Note Date: 04/11/24 CHIEF COMPLAINT: Perforated duodenal ulcer HISTORY OF PRESENT ILLNESS: Patient is postop day #2 status post exploratory laparotomy with modified Lee patch for perforated duodenal ulcer. She is currently in the ICU. Her pain is controlled. No bowel activity. She denies any nausea. Afebrile. WBC 34.6 hgb 11.1 cr 1.64 PHYSICAL EXAM: VITAL SIGNS: Reviewed. GENERAL: no acute distress. ABDOMEN: Soft. Mildly distended. Tender at incision site. Dressing is intact. small area of shadowing NEUROLOGIC: confused. hard of hearing ASSESSMENT: 1. Perforated duodenal ulcer status postrepair 2. Splenic hematoma without rupture 3. Afib PLAN: -Continue NG tube for decompression -Keep patient n.p.o. -Continue IV antibiotics -Continue IV Protonix -Continue IV fluids -ok to start subcu heparin every 8 hours for DVT prophylaxis Physician Auto Travel Counselor note has been reviewed by physician. Signing provider agrees with the documented findings, assessment, and plan of care. I have personally seen and examined the patient, reviewed the E LEARNING SPECIALIST /PAs history, exam and MDM and agree with the assessment and plan as written. Based on total visit time, I have performed more than 50% of the visit. As above: Patient seems to be doing slightly better today. White blood cell count remains significantly elevated. Will check upper GI tomorrow through nasogastric tube. Continue bowel rest. Objective - Vital Signs Vital signs: Vital Signs Temp 97.8 F 04/11/24 04:00 Pulse 79 04/11/24 10:00 Resp 16 04/11/24 10:00 BP 146/64 04/11/24 10:00 Pulse Ox 95 04/11/24 10:00 FiO2 Intake & Output 04/10/24 04/11/24 04/11/24 18:59 06:59 18:59 Intake Total 1686.318 2457 300 Output Total 1185 700 270 Balance 637.783 300 30 Weight 62.7 kg Intake: IV 1325 1000 300 Fluconazole in NaCl,Iso- 50 Osm 100 mg In Saline 1 50ml.bag @ 50 mls/hr IVPB DAILY [facility] Rx#:[id number] Lactated Ringers 1,000 ml 1175 900 300 @ 75 mls/hr IV .[id number] [facility] Rx#:[id number] Piperacillin-Tazobactam 3 100 100 .375 gm In Sodium Chloride 0.9% 100 ml @ 25 mls/hr IVPB Q12H [facility] Rx# :[id number] Intake, IV Titration 497.783 Amount Amiodarone 450 mg In 266.7 Dextrose 5% in Water 250 ml @ 0.5 MG/MIN 16.667 mls/hr IV .Q15H [facility] Rx#: [id number] Diltiazem 125 mg In 106.083 Sodium Chloride 0.9% 100 ml @ 5 MG/HR 5 mls/hr IV .Q24H [facility] Rx#:[id number] Lactated Ringers 1,000 ml 125 @ 75 mls/hr IV .[id number] [facility] Rx#:[id number] Output: Drainage 5 Lower Abdomen 5 Urine 1185 700 265 Other: Voiding Method Indwelling Catheter Indwelling Catheter ABP, PAP, CO, CI - Last Documented Arterial Blood Pressure 90/59 - Labs CBC & Chem 7: 04/11/24 05:52 04/11/24 05:52 Labs: Abnormal Lab Results - Last 24 Hours (Table) 04/10/24 04/10/24 04/10/24 Range/Units 12:19 12:30 12:30 WBC 33.1 H (3.8-10.6) k/uL Hgb 11.1 L (11.4-16.0) gm/dL MCHC 30.8 L (31.0-37.0) g/dL Plt Count 459 H (150-450) k/uL Neutrophils # (Manual) 30.45 H (1.3-7.7) k/uL Chloride 111 H (98-107) mmol/L BUN 79 H (7-17) mg/dL Creatinine 1.86 H (0.52-1.04) mg/dL Glucose 155 H (74-99) mg/dL POC Glucose (mg/dL) 154 H (70-110) mg/dL Total Protein (6.3-8.2) g/dL Albumin (3.5-5.0) g/dL 04/10/24 04/11/24 04/11/24 Range/Units 23:48 05:47 05:52 WBC 34.6 H (3.8-10.6) k/uL Hgb 11.1 L (11.4-16.0) gm/dL MCHC 30.3 L (31.0-37.0) g/dL Plt Count (150-450) k/uL Neutrophils # (Manual) (1.3-7.7) k/uL Chloride (98-107) mmol/L BUN (7-17) mg/dL Creatinine (0.52-1.04) mg/dL Glucose (74-99) mg/dL POC Glucose (mg/dL) 127 H 134 H (70-110) mg/dL Total Protein (6.3-8.2) g/dL Albumin (3.5-5.0) g/dL 04/11/24 Range/Units 05:52 WBC (3.8-10.6) k/uL Hgb (11.4-16.0) gm/dL MCHC (31.0-37.0) g/dL Plt Count (150-450) k/uL Neutrophils # (Manual) (1.3-7.7) k/uL Chloride 113 H (98-107) mmol/L BUN 71 H (7-17) mg/dL Creatinine 1.64 H (0.52-1.04) mg/dL Glucose 124 H (74-99) mg/dL POC Glucose (mg/dL) (70-110) mg/dL Total Protein 4.5 L (6.3-8.2) g/dL Albumin 2.3 L (3.5-5.0) g/dL Microbiology - Last 24 Hours (Table) 04/08/24 23:00 Blood Culture - Preliminary Blood 04/08/24 22:45 Blood Culture - Preliminary Blood
[2024-04-11] MEDS: PIPERACILLIN-TAZOBACTAM 3.375 GM in SODIUM CHLORIDE 0.9% 100 ML IVPB SCH (15:38)
--- NOTE | 2024-04-11 15:41 | CDI ---
Documentation Clarification Form Date: 04/11/2024 03:03:54 PM From: Rosa Ray RN, CCDS Phone: [phone] Admit Date: 04/08/2024 11:26:00 PM Patient Name: Gracie Yao Visit Number: [id number] Discharge Date: ATTENTION: The Clinical Documentation Specialists (CDI) and [facility] Coding Staff appreciate your assistance in clarifying documentation. Please respond to the clarification below the line at the bottom and electronically sign. The CDI & [facility] Coding staff will review the response and follow-up if needed. Please note: Queries are made part of the Legal Health Record. If you have any questions, please contact the author of this message via ITS. Dr. Eleazar Forte Postoperative urinary retention is documented in the Urology consult on 04/10/24 and patient had an exploratory laparotomy modified lee patch. Additional clarification is requested regarding the relationship, if any, that exists between the diagnosis and the procedure. Patients Admitting Diagnosis: Pneumoperitoneum Post-Operative Diagnosis: Same Procedure performed: Exploratory Laparotomy Modified Lee Patch History/Risk Factors: 88-year-old female that underwent an ex lap and repair of a perforated duodenal ulcer. Attempt to place a Walters catheter by the nursing staff was unsuccessful. Bladder scan showed greater than 600 mL, patient does currently have pure wick and is incontinent of urine. No previous known history of recurrent UTI. Assessment: Patient had significant vaginal stenosis and urethral meatal stenosis, I was unable to visualize the urethra secondary to her significant vaginal stenosis. I was able to place a 12 Egyptian silicone catheter. At this point recommend keeping the catheter until patient is closer to discharge, at that point she can have a trial of void once she is closer to discharge Treatment: 12 Egyptian silicone catheter Monitor I/O What relationship, if any, exists between the diagnosis of postoperative urinary retention and the procedure? [ ] Postoperative urinary retention is a complication of surgical procedure [ ] Postoperative urinary retention is an expected outcome of the surgical procedure [ X ] Postoperative urinary retention is related to patients co-morbid condition(s) of vaginal stenosis and urethral meatal stenosis & not a complication of the procedure [ ] Other please specify ____ [ ] Unable to determine (Template Last Revised: December 2020) MTDD
[2024-04-11] MEDS: HEPARIN SODIUM,PORCINE 5,000 UNIT/ML 1 ML VIAL SQ SCH (15:47)
--- NOTE | 2024-04-11 16:21 | CDI ---
Documentation Clarification Form Date: 04/11/2024 03:50:34 PM From: Rosa Ray RN, CCDS Phone: [phone] Admit Date: 04/08/2024 11:26:00 PM Patient Name: Gracie Yao Visit Number: [id number] Discharge Date: ATTENTION: The Clinical Documentation Specialists (CDI) and [facility] Coding Staff appreciate your assistance in clarifying documentation. Please respond to the clarification below the line at the bottom and electronically sign. The CDI & [facility] Coding staff will review the response and follow-up if needed. Please note: Queries are made part of the Legal Health Record. If you have any questions, please contact the author of this message via ITS. Dr. Varinder Sanders The patient has sepsis, likely related to documented in the medical consult (Dr. Urena) on 04/08/24 but is not continue in subsequent progress notes. Based on this information and the findings below, is there an additional diagnosis that is clinically appropriate for this patient? History/Risk Factors: Dementia, Clinical Indicators: 88-year-old female who fell about 2 weeks ago and sustained some bruising to her ribs who was brought in today at the behest of a neighbor for evaluation of weakness failure to thrive decreased oral intake suspected dehydration no complaints of cough shortness of breath fever chills sweats no nausea vomiting. CT of the abdomen and pelvis later resulted and revealed evidence of pneumoperitoneum likely secondary to perforated duodenal ulcer, ascites, fluid adjacent to spleen suggesting hemorrhagic content and therefore splenic subcapsular hematoma. There are couple of fractured adjacent ribs 04/08 VS: 128/58 95 16 95% RA 04/08 Labs: WBC 36.2 Neutrophils 34.00, BUN 118. CR 3.27 04/10 ID progress note: Peritonitis, Perforated duodenal ulcer, Leukocytosis Patient white count is 33.1 creatinine is 1.86 Treatment: 04/09 1. Exploratory Laparotomy, 2. Modified Lee Patch Rocephin 2GM IVP .9% NS 1,000ML Bolus 04/08 Zosyn 3.375 GM IVPB Q 8 HRS Lactated Ringers @ 75 ML/HR Is there an additional diagnosis that is clinically appropriate for this patient? [ x ] Sepsis, secondary to perforated duodenal ulcer, present on admission. [ ] Other, please specify [ ] Unable to determine SIRS Criteria: 2 or more of the following may indicate SIRS Temperature < 96.8F (36C) or > 101.0F (38.3C) Heart Rate > 90 bpm Respiratory Rate > 20 breaths/min or PaCO2 < 32 mmHg White Blood Cell Count > 12,000 or < 4,000 cells/mm3 or > 10% bands (Template Last Reviewed: October 2022) MTDD
[2024-04-11] MEDS: AMIODARONE 450 MG in DEXTROSE 5% IN WATER 250 ML IV SCH (16:47)
[2024-04-11] MEDS: ACETAMINOPHEN IV (For NPO) 1,000 MG in EMPTY BAG 1 BAG IVPB PRN (23:56)
[2024-04-12 00:15] LABS: Glucose,Whole Blood 118 mg/dL (70-110)
--- NOTE | 2024-04-12 01:17 | XR ---
EXAMINATION TYPE: XR chest 1V portable DATE OF EXAM: 04/12/2024 CLINICAL HISTORY: NG tube placement. TECHNIQUE: Single AP portable upright view of the chest is obtained. COMPARISON: Chest x-ray from 2 days earlier FINDINGS: Nasogastric tube is coiled with tip above the diaphragm at level of the distal esophagus. Persistent right greater than left bibasilar opacities. Cardiac silhouette size stable and within nor mal limits. Osseous structures are intact. IMPRESSION: 1. New nasogastric tube is coiled terminating in distal esophagus or hiatal hernia above the diaphrag m and needs to be replaced/repositioned. 2. Persistent right greater than left bibasilar acute infiltrate and/or atelectasis and likely small bilateral pleural effusions.
[2024-04-12 06:50] LABS: HCT 38.5 % (34.0-46.0); HGB 11.6 gm/dL (11.4-16.0); Hypochromasia Slight; MCH 28.5 pg (25.0-35.0); MCHC 30.2 g/dL (31.0-37.0); MCV 94.6 fL (80.0-100.0); Mean Platelet Volume 8.2; Platelet Count 383 k/uL (150-450); RBC 4.07 m/uL (3.80-5.40); RDW 13.6 % (11.5-15.5); WBC 37.4 k/uL (3.8-10.6)
[2024-04-12 07:12] LABS: ALT 31 U/L (4-34); AST 32 U/L (14-36); African American GFR (CKD) 44 (>60 ml/min/1.73 sqM); Albumin 2.2 g/dL (3.5-5.0); Alkaline Phosphatase 95 U/L (38-126); Anion Gap 6 mmol/L; Blood Urea Nitrogen 52 mg/dL (7-17); Calcium 8.2 mg/dL (8.4-10.2); Carbon Dioxide 24 mmol/L (22-30); Chloride 115 mmol/L (98-107); Glucose 123 mg/dL (74-99); Non-African American GFR(CKD) 38 (>60 ml/min/1.73 sqM); Potassium 3.2 mmol/L (3.5-5.1); Sodium 145 mmol/L (137-145); Total Bilirubin 1.1 mg/dL (0.2-1.3); Total Protein 4.6 g/dL (6.3-8.2)
--- NOTE | 2024-04-12 08:44 | XR ---
EXAMINATION TYPE: XR chest 1V portable DATE OF EXAM: 04/12/2024 5:09 AM CLINICAL INDICATION:Female, 88 years old with history of acute hypoxemic respiratory failure; COMPARISON: Chest radiographs from 04/12/2024. TECHNIQUE: XR chest 1V portable Frontal view of the chest. FINDINGS: Lungs/Pleura: There is no evidence of pleural effusion, focal consolidation, or pneumothorax. Pulmonary vascularity: Unremarkable. Heart/mediastinum: Cardiomediastinal silhouette is unremarkable. Musculoskeletal: No acute osseous pathology. Nasogastric tube with tip terminating under the diaphragm and over the gastric lumen. IMPRESSION: Stable appearance of the lungs with haziness the right lung base compatible with atelectasis on prior CT..
--- NOTE | 2024-04-12 09:28 | FL ---
Single contrast esophagram EXAMINATION TYPE: FL UGI limited DATE OF EXAM: 04/12/2024 9:10 AM COMPARISON: NONE CLINICAL HISTORY: Status post modified Lee patch for perforated duodenal ulcer. The abdomen patient's indwelling NG tube approximately 60 mL of Isovue-370 was injected. Almost immed iately contrast was noted to extravasate into the right upper quadrant. Surgical drain is noted withi n the right upper quadrant. Midline skin reshma are present. IMPRESSION: Strandy w con right upper quadrant compatible with leak at the site of patch placement du odenal bulb.
[2024-04-12] MEDS: POTASSIUM CHLORIDE 10 MEQ in WATER FOR INJECTION 1 100ML.BAG IVPB SCH (10:25)
--- NOTE | 2024-04-12 11:33 | P.PN ---
Subjective This is an 88-year-old female patient who is somewhat poor historian who we are asked to see in the intensive care unit for further evaluation of atrial fibrillation with rapid ventricular response. The patient lives by herself. She has some underlying dementia. She was brought by her neighbor because she fell 2 days ago and has not been feeling well. She has been experiencing intermittent episodes of confusion and she was also having failure to thrive. Beside that she was feeling nauseated and experiencing intermittent episodes of abdominal discomfort. She underwent further investigation in the emergency department including an EKG showing sinus mechanism with nonspecific ST and T wave abnormalities and also she underwent a CT scan of the abdomen and that revealed perforated bowel. The patient underwent surgery yesterday and this is her postoperation day #1. No history of CAD or CHF or cardiac arrhythmia including atrial fibrillation the patient never seen by a food assembler in the past according to her. The patient is extremely poor historian and she has difficulty hearing. Subsequently the patient was started on Cardizem IV and amiodarone IV and converted to normal sinus mechanism and has been maintaining normal sinus mechanism with heart rate in the 50s as well as the 60s. Currently she is not on any IV heparin or anticoagulation. We are going to find out from the surgical team when it is safe to start the patient on IV heparin at this point. Apparently she is n.p.o. and cannot take any oral medication and for that reason she is on the IV AV georgie harvinder agents. An echocardiogram was ordered and still pending. Further investigation also was performed including creatinine came to be at 2.5 but the patient has not been able to urinate and there is a component of obstructive uropathy and currently urology service is on the case to place a Walters catheter. Beside that her hemoglobin has been around 10.5. The examination is remarkable for regular rhythm with distant heart sounds and systolic murmur at the right upper sternal border with diminished breathing sounds bilaterally and no edema was noted in the lower extremities 04/12 patient seen and examined. Patient's creatinine has improved to 1.2. She denies any chest pain or pressure. Denies any significant shortness breath. Has some vague abdominal pain. Concern of continued leak from upper GI study. Echocardiogram performed which shows preserved EF without significant valvular disease. Has been on IV amiodarone as well as IV Cardizem drip secondary to patient being nothing by mouth. PHYSICAL EXAMINATION Vital signs reviewed. CONSTITUTIONAL: No apparent distress. HEENT: Head is normocephalic. Pupils are equal, round. Sclerae anicteric. Mucous membranes of the mouth are moist. No JVD. No carotid bruit. CHEST EXAMINATION: Lungs are clear to auscultation. No chest wall tenderness is noted on palpation or with deep breathing. HEART EXAMINATION: Regular rate and rhythm. S1, S2 heard. No murmurs, gallops or rub. ABDOMEN: Soft, nontender. Positive bowel sounds. EXTREMITIES: 2+ peripheral pulses, no lower extremity edema and no calf tenderness. NEUROLOGIC EXAMINATION: Patient is awake, alert and oriented x3. Assessment Status post abdominal surgery, perforated bowel with continued bowel leak Parosyxmal atrial fibrillation new onset. Currently the patient is in sinus mechanism. Obstructive uropathy JESÚS, improving Multiple comorbid conditions Plan Continue with amiodarone IV and IV Cardizem drip given she cannot take any pills by mouth. Not a good anticoagulation candidate currently with concern of continued leak. Echo showing preserved EF. Continue her current supportive care with creatinine improving. Further recommendations to follow. Objective - Vital Signs Vital signs: Vital Signs Temp 97.7 F 04/12/24 08:00 Pulse 76 04/12/24 08:00 Resp 18 04/12/24 08:00 BP 149/69 04/12/24 08:00 Pulse Ox 97 04/12/24 08:19 FiO2 Intake & Output 04/11/24 04/12/24 04/12/24 18:59 06:59 18:59 Intake Total 8012.988 5118.833 410 Output Total 1120 1120 205 Balance 150.167 -95.167 205 Weight 61.6 kg Intake: IV 1150 920 160 Fluconazole in NaCl,Iso- 50 Osm 100 mg In Saline 1 50ml.bag @ 50 mls/hr IVPB DAILY [facility] Rx#:[id number] Invasive Line 6 20 10 Lactated Ringers 1,000 ml 900 900 150 @ 75 mls/hr IV .[id number] [facility] Rx#:[id number] Piperacillin-Tazobactam 3 200 .375 gm In Sodium Chloride 0.9% 100 ml @ 25 mls/hr IVPB Q12H [facility] Rx# :[id number] Intake, IV Titration 120.167 104.833 250 Amount Amiodarone 450 mg In 250 Dextrose 5% in Water 250 ml @ 0.5 MG/MIN 16.667 mls/hr IV .Q15H [facility] Rx#: [id number] Diltiazem 125 mg In 120.167 4.833 Sodium Chloride 0.9% 100 ml @ 5 MG/HR 5 mls/hr IV .Q24H [facility] Rx#:[id number] Piperacillin-Tazobactam 3 100 .375 gm In Sodium Chloride 0.9% 100 ml @ 25 mls/hr IVPB Q12H [facility] Rx# :[id number] Output: Gastric Drainage 250 150 30 Drainage 5 5 Lower Abdomen 5 5 Urine 865 965 175 Other: Voiding Method Indwelling Catheter Indwelling Catheter ABP, PAP, CO, CI - Last Documented Arterial Blood Pressure 90/59 - Labs CBC & Chem 7: 04/12/24 06:04 04/12/24 06:04 Labs: Abnormal Lab Results - Last 24 Hours (Table) 04/12/24 04/12/24 04/12/24 Range/Units 00:13 06:04 06:04 WBC 37.4 H (3.8-10.6) k/uL MCHC 30.2 L (31.0-37.0) g/dL Potassium 3.2 L (3.5-5.1) mmol/L Chloride 115 H (98-107) mmol/L BUN 52 H (7-17) mg/dL Creatinine 1.26 H (0.52-1.04) mg/dL Glucose 123 H (74-99) mg/dL POC Glucose (mg/dL) 118 H (70-110) mg/dL Calcium 8.2 L (8.4-10.2) mg/dL Total Protein 4.6 L (6.3-8.2) g/dL Albumin 2.2 L (3.5-5.0) g/dL Microbiology - Last 24 Hours (Table) 04/08/24 23:00 Blood Culture - Preliminary Blood 04/08/24 22:45 Blood Culture - Preliminary Blood
--- NOTE | 2024-04-12 11:33 | P.PN ---
Subjective Progress Note Date: 04/12/24 Principal diagnosis: Perforated viscus. This is an 88-year-old female, recent history of fall about 2 weeks ago, sustained bruising to her left ribs. Patient was brought in yesterday to the ER mostly with symptoms of weakness, failure to thrive, poor oral intake, and suspected dehydration. Patient was also complaining of cough and shortness of breath, no fever no chills, no nausea no vomiting. In addition the patient had no bowel movement for the last 4 days. Apparently the patient has been experiencing intermittent episodes of confusion for the last 1 year. Workup in the ER included a CT of the abdomen and pelvis, it showed pneumoperitoneum and free fluid. Patient was felt that she has ruptured viscus, she was seen by surgery and she underwent exploratory laparotomy for her pneumoperitoneum, and she was found to have perforated duodenal ulcer. Patient had modified Lee patch and postoperatively the patient was extubated nonetheless she was admitted to the ICU, and this consult was initiated. I saw the patient in the ICU this morning, she is on 4 L nasal cannula, does not seem to be in any distress. She is already on Zosyn, and I added Diflucan. She is on LR at 125 cc/h. Her WBC count is 28.6, electrolytes are normal hemoglobin is 10.7 BUN is 97 creatinine down to 2.45 from 3.27 yesterday. Progress note dated April 10, 2024. 88-year-old female seen yesterday in consultation. She was admitted on April 08, with confusion and weakness. The patient had a repair of a perforated duodenal ulcer on April 09. Today is postop day #1. She is currently seen today in room 261. She is currently on 6 L of oxygen by nasal cannula. She has an NG tube in place. She is getting lactated Ringer's at 125 cc an hour. For atrial fibrillation with a rapid ventricular response, she was started on Cardizem drip at 5 mg an hour, and amiodarone 0.5 mg/min. No new labs today other than a glucose of 154. The labs from yesterday are reviewed. White count was 28.6. Hemoglobin 10.7, platelet count was normal. BUN and creatinine were 97 and 2.45. Chest x-ray suggested bilateral pleural effusions. Progress note dated April 11, 2024. 88-year-old female seen today in room 261. The patient was admitted on April 08, with confusion and weakness. The patient was discovered to have a perforated duodenal ulcer, and had a surgical repair performed on April 09. Today is postop day #2. The patient is currently without distress. She is on room air. NG tube remains in place. She is getting lactated Ringer's at 75 cc an hour. Because of atrial fibrillation and RVR, she continues on amiodarone 0.5 mg/min, and Cardizem at 5 mg an hour. Lab data includes a white count 34.6, hemoglobin 9.1, hematocrit 36.6, and a platelet count 442,000. Sodium 143, potassium 4.1, chlorides 113, CO2 23, BUN 71, creatinine 1.64. Glucose is 134. Albumin is 2.3. Blood cultures are currently negative. No chest x-ray today has been ordered. Progress note dated April 12, 2024. This is an 88-year-old female who is seen in room 261. The patient was admitted back on April 08, with confusion and weakness. She was discovered to have a perforated duodenal ulcer, and had surgical repair performed on April 09. Today is postoperative day #3. The patient is going to have a upper GI study today. She is getting lactated Ringer's at 75 cc an hour, 3 L of oxygen by nasal cannula, Cardizem at 5 mg an hour, and amiodarone at 0.5 mg/min. White count was 37.4, hemoglobin 11.6, hematocrit 38.5, and platelet count was normal. Sodium 145, potassium 3.2, chloride 115, CO2 24, BUN 52, creatinine 1.26. Glucose 123. Calcium 8.2. BUN 2.2. Blood cultures are currently negative. The patient's chest x-ray is stable, with some basilar atelectasis on the right. Upper GI study showed a leak, at the site of patch placement, in the duodenal bulb. Objective - Vital Signs Vital signs: Vital Signs Temp 97.7 F 04/12/24 08:00 Pulse 76 04/12/24 08:00 Resp 18 04/12/24 08:00 BP 149/69 04/12/24 08:00 Pulse Ox 97 04/12/24 08:19 FiO2 Intake & Output 04/11/24 04/12/2424 18:59 06:59 18:59 Intake Total 2039.978 3259.833 410 Output Total 1120 1120 205 Balance 150.167 -95.167 205 Weight 61.6 kg Intake: IV 1150 920 160 Fluconazole in NaCl,Iso- 50 Osm 100 mg In Saline 1 50ml.bag @ 50 mls/hr IVPB DAILY [facility] Rx#:[id number] Invasive Line 6 20 10 Lactated Ringers 1,000 ml 900 900 150 @ 75 mls/hr IV .[id number] [facility] Rx#:[id number] Piperacillin-Tazobactam 3 200 .375 gm In Sodium Chloride 0.9% 100 ml @ 25 mls/hr IVPB Q12H [facility] Rx# :[id number] Intake, IV Titration 120.167 104.833 250 Amount Amiodarone 450 mg In 250 Dextrose 5% in Water 250 ml @ 0.5 MG/MIN 16.667 mls/hr IV .Q15H [facility] Rx#: [id number] Diltiazem 125 mg In 120.167 4.833 Sodium Chloride 0.9% 100 ml @ 5 MG/HR 5 mls/hr IV .Q24H [facility] Rx#:[id number] Piperacillin-Tazobactam 3 100 .375 gm In Sodium Chloride 0.9% 100 ml @ 25 mls/hr IVPB Q12H [facility] Rx# :[id number] Output: Gastric Drainage 250 150 30 Drainage 5 5 Lower Abdomen 5 5 Urine 865 965 175 Other: Voiding Method Indwelling Catheter Indwelling Catheter ABP, PAP, CO, CI - Last Documented Arterial Blood Pressure 90/59 - Exam No acute distress, slow to respond verbally, currently on 3 L nasal cannula. HEENT examination is grossly unremarkable. Mucous membranes are moist. No oral lesions. Neck supple. Full range of motion. No adenopathy thyromegaly or neck vein distention. Cardiovascular examination reveals regular rhythm rate. S1-S2 normal. No S3 or S4. No discernible murmur noted. Heart rate is 76 bpm. Lungs reveal rhonchi. No wheezes or crackles. Breath sounds equal. Saturations are 97 %. Abdomen soft, without bowel sounds. Abdominal incision is dressed. Extremities are intact. No cyanosis clubbing or edema. Skin is without rash or lesion. Neurologic examination is brief but nonfocal. - Labs CBC & Chem 7: 04/12/24 06:04 04/12/24 06:04 Labs: Abnormal Lab Results - Last 24 Hours (Table) 04/12/24 04/12/24 04/12/24 Range/Units 00:13 06:04 06:04 WBC 37.4 H (3.8-10.6) k/uL MCHC 30.2 L (31.0-37.0) g/dL Potassium 3.2 L (3.5-5.1) mmol/L Chloride 115 H (98-107) mmol/L BUN 52 H (7-17) mg/dL Creatinine 1.26 H (0.52-1.04) mg/dL Glucose 123 H (74-99) mg/dL POC Glucose (mg/dL) 118 H (70-110) mg/dL Calcium 8.2 L (8.4-10.2) mg/dL Total Protein 4.6 L (6.3-8.2) g/dL Albumin 2.2 L (3.5-5.0) g/dL Microbiology - Last 24 Hours (Table) 04/08/24 23:00 Blood Culture - Preliminary Blood 04/08/24 22:45 Blood Culture - Preliminary Blood Assessment and Plan Assessment: Postoperative day #3, S/P exploratory laparotomy, repair of perforated duodenal ulcer, and application of a modified Lee patch. Upper GI series, showing leak, at the site of the modified Lee patch. Acute abdominal sepsis. Acute atrial fibrillation, with rapid ventricular response. History of splenic hematoma, without rupture. Acute dehydration with acute kidney injury. Nonanion gap metabolic acidosis. Leukocytosis, secondary to sepsis. Hypovolemic hyponatremia, recovered. General medical debility. Plan: Plan dated April 10, 2024. The patient had surgery done yesterday, she had an exploratory laparotomy, and repair of a perforated duodenal ulcer. She is currently on 6 L nasal cannula. She did develop some atrial fibrillation with RVR overnight. She was placed on both Cardizem drip, and amiodarone drip. Labs, x-rays, and medications are all reviewed. We will continue to follow the patient, make recommendations along the way. Prognosis is guarded. Plan dated April 11, 2024. The patient appears to be doing relatively well. She still has an NG tube in p lace. She still NPO. She continues on Cardizem, and amiodarone, for atrial fibrillation with RVR. Labs, x-rays, and medications are reviewed. The patient remains on room air. NG tube remains in place. She is getting lactated Ringer's at 75 cc an hour. We will continue to follow make recommendations along the way. The patient's overall prognosis remains very guarded.\ Plan dated April 12, 2024. The patient's upper GI series, showed a leak, at the site of the modified Lee patch. The patient's labs, x-rays, and medications are all reviewed. The patient is currently on 3 L of oxygen. We will continue to follow make recommendations along the way. In addition, the patient continues on Cardizem at 5 mg an hour, and amiodarone at 0.5 mg/min, for atrial fibrillation/RVR. The patient is also getting lactated Ringer's at 75 cc an hour. We will continue to follow make recommendations along the way. Prognosis is guarded. Time with Patient: Less than 30
--- NOTE | 2024-04-12 11:44 | P.PN ---
Subjective patient is seen for follow-up for acute kidney injury. Currently maintained on IV fluids. Decreased to 70 mL an hour. Serum creatinine has improved to 1.2 today. Status post Walters catheter placement by urology Objective - Vital Signs Vital signs: Vital Signs Temp 97.7 F 04/12/24 08:00 Pulse 76 04/12/24 08:00 Resp 18 04/12/24 08:00 BP 149/69 04/12/24 08:00 Pulse Ox 97 04/12/24 08:19 FiO2 Intake & Output 04/11/24 04/12/24 04/12/24 18:59 06:59 18:59 Intake Total 3499.735 7141.833 410 Output Total 1120 1120 205 Balance 150.167 -95.167 205 Weight 61.6 kg Intake: IV 1150 920 160 Fluconazole in NaCl,Iso- 50 Osm 100 mg In Saline 1 50ml.bag @ 50 mls/hr IVPB DAILY [facility] Rx#:[id number] Invasive Line 6 20 10 Lactated Ringers 1,000 ml 900 900 150 @ 75 mls/hr IV .[id number] [facility] Rx#:[id number] Piperacillin-Tazobactam 3 200 .375 gm In Sodium Chloride 0.9% 100 ml @ 25 mls/hr IVPB Q12H [facility] Rx# :[id number] Intake, IV Titration 120.167 104.833 250 Amount Amiodarone 450 mg In 250 Dextrose 5% in Water 250 ml @ 0.5 MG/MIN 16.667 mls/hr IV .Q15H [facility] Rx#: [id number] Diltiazem 125 mg In 120.167 4.833 Sodium Chloride 0.9% 100 ml @ 5 MG/HR 5 mls/hr IV .Q24H [facility] Rx#:[id number] Piperacillin-Tazobactam 3 100 .375 gm In Sodium Chloride 0.9% 100 ml @ 25 mls/hr IVPB Q12H [facility] Rx# :[id number] Output: Gastric Drainage 250 150 30 Drainage 5 5 Lower Abdomen 5 5 Urine 865 965 175 Other: Voiding Method Indwelling Catheter Indwelling Catheter ABP, PAP, CO, CI - Last Documented Arterial Blood Pressure 90/59 - Exam patient is awake, comfortable, no acute distress. Examination of the heart S1 and S2 Examination of the lungs decreased breath sounds at the bases Abdomen is soft Examination lower extremity shows no significant edema. WOOL BROKER exam grossly intact - Labs CBC & Chem 7: 04/12/24 06:04 04/12/24 06:04 Labs: Abnormal Lab Results - Last 24 Hours (Table) 04/12/24 04/12/24 04/12/24 Range/Units 00:13 06:04 06:04 WBC 37.4 H (3.8-10.6) k/uL MCHC 30.2 L (31.0-37.0) g/dL Potassium 3.2 L (3.5-5.1) mmol/L Chloride 115 H (98-107) mmol/L BUN 52 H (7-17) mg/dL Creatinine 1.26 H (0.52-1.04) mg/dL Glucose 123 H (74-99) mg/dL POC Glucose (mg/dL) 118 H (70-110) mg/dL Calcium 8.2 L (8.4-10.2) mg/dL Total Protein 4.6 L (6.3-8.2) g/dL Albumin 2.2 L (3.5-5.0) g/dL Microbiology - Last 24 Hours (Table) 04/08/24 23:00 Blood Culture - Preliminary Blood 04/08/24 22:45 Blood Culture - Preliminary Blood Assessment and Plan Assessment: 1. Acute kidney injury, ATN currently nonoliguric. UA is quite benign. No evidence of obstruction on CT of the abdomen. 2. Non-gap metabolic acidosis secondary to acute kidney injury. 3. Perforated duodenal ulcer status post explorative laparotomy with tato patch on 04/09/2024 4. Status post fall with rib fractures 5. A. fib with RVR status post amiodarone drip Plan: continue with IV fluids. ccontinue with Walters catheter
[2024-04-12] MEDS: PIPERACILLIN-TAZOBACTAM 3.375 GM in SODIUM CHLORIDE 0.9% 100 ML IVPB SCH (13:10)
[2024-04-12] MEDS: AMIODARONE 450 MG in DEXTROSE 5% IN WATER 250 ML IV SCH (13:17)
--- NOTE | 2024-04-12 13:43 | P.PN ---
Subjective Progress Note Date: 04/12/24 CHIEF COMPLAINT: Perforated duodenal ulcer HISTORY OF PRESENT ILLNESS: Patient is postop day #3 status post exploratory laparotomy with modified Lee patch for perforated duodenal ulcer. She is currently in the ICU. Patient has pulled out her NG tube 3 times. She is also pulled out her IV. Upper GI reported contrast noted to extravasate into right upper quadrant. Compatible with leak at the site of patch placement at the duodenal bulb. No nausea or vomiting reported. Patient is confused. Afebrile. No tachycardia. She is in A-fib on Cardizem and amiodarone. WBC is up to 37. Hgb 11.6 creatinine 1.26 potassium 3.2 SHRUTHI drain 5 mL serosanguineous output PHYSICAL EXAM: VITAL SIGNS: Reviewed. GENERAL: no acute distress. ABDOMEN: Soft. Mildly distended. tender upper abdomen. Dressing is intact. small area of shadowing NEUROLOGIC: confused ASSESSMENT: 1. Perforated duodenal ulcer status postrepair. Upper GI now showing a leak 2. Splenic hematoma without rupture 3. Afib PLAN: -Patient is scheduled for exploratory laparotomy and repair of perforated duodenal ulcer today with Dr. Singh -Reinsert NG tube -Keep patient n.p.o. -Continue IV antibiotics -Continue IV Protonix -Continue IV fluids -Replace potassium -DVT prophylaxis subcu heparin Physician Supervisor Alum Plant note has been reviewed by physician. Signing provider agrees with the documented findings, assessment, and plan of care. I have personally seen and examined the patient, reviewed the PHOTOGRAPH FINISHER /PAs history, exam and MDM and agree with the assessment and plan as written. Based on total visit time, I have performed more than 50% of the visit. As above: Patient's upper GI today showed active leak. Does not seem to be communicating well with a drain in place. Patient's leukocytosis worsening. Clinically she looks better than the studies would suggest. Options discussed with patient and her friend at the bedside Juju. Options of conservative management, hospice, or reexploration reviewed. Will proceed with exploratory laparotomy with repair of perforated duodenal ulcer. This will likely require B2 gastrectomy. This will be based on intraoperative findings. Risks of bleedi ng, infection, leak, abscess, fistula, sepsis, respiratory and cardiac failure, . They understand and wish to proceed. Objective - Vital Signs Vital signs: Vital Signs Temp 97.7 F 04/12/24 08:00 Pulse 76 04/12/24 08:00 Resp 18 04/12/24 08:00 BP 149/69 04/12/24 08:00 Pulse Ox 97 04/12/24 08:19 FiO2 Intake & Output 04/11/24 04/12/24 04/12/24 18:59 06:59 18:59 Intake Total 8949.429 8286.833 410 Output Total 1120 1120 205 Balance 150.167 -95.167 205 Weight 61.6 kg Intake: IV 1150 920 160 Fluconazole in NaCl,Iso- 50 Osm 100 mg In Saline 1 50ml.bag @ 50 mls/hr IVPB DAILY [facility] Rx#:[id number] Invasive Line 6 20 10 Lactated Ringers 1,000 ml 900 900 150 @ 75 mls/hr IV .[id number] [facility] Rx#:[id number] Piperacillin-Tazobactam 3 200 .375 gm In Sodium Chloride 0.9% 100 ml @ 25 mls/hr IVPB Q12H [facility] Rx# :[id number] Intake, IV Titration 120.167 104.833 250 Amount Amiodarone 450 mg In 250 Dextrose 5% in Water 250 ml @ 0.5 MG/MIN 16.667 mls/hr IV .Q15H [facility] Rx#: [id number] Diltiazem 125 mg In 120.167 4.833 Sodium Chloride 0.9% 100 ml @ 5 MG/HR 5 mls/hr IV .Q24H [facility] Rx#:[id number] Piperacillin-Tazobactam 3 100 .375 gm In Sodium Chloride 0.9% 100 ml @ 25 mls/hr IVPB Q12H [facility] Rx# :[id number] Output: Gastric Drainage 250 150 30 Drainage 5 5 Lower Abdomen 5 5 Urine 865 965 175 Other: Voiding Method Indwelling Catheter Indwelling Catheter ABP, PAP, CO, CI - Last Documented Arterial Blood Pressure 90/59 - Labs CBC & Chem 7: 04/12/24 06:04 04/12/24 06:04 Labs: Abnormal Lab Results - Last 24 Hours (Table) 04/12/24 04/12/24 04/12/24 Range/Units 00:13 06:04 06:04 WBC 37.4 H (3.8-10.6) k/uL MCHC 30.2 L (31.0-37.0) g/dL Potassium 3.2 L (3.5-5.1) mmol/L Chloride 115 H (98-107) mmol/L BUN 52 H (7-17) mg/dL Creatinine 1.26 H (0.52-1.04) mg/dL Glucose 123 H (74-99) mg/dL POC Glucose (mg/dL) 118 H (70-110) mg/dL Calcium 8.2 L (8.4-10.2) mg/dL Total Protein 4.6 L (6.3-8.2) g/dL Albumin 2.2 L (3.5-5.0) g/dL Microbiology - Last 24 Hours (Table) 04/08/24 23:00 Blood Culture - Preliminary Blood 04/08/24 22:45 Blood Culture - Preliminary Blood
[2024-04-12] MEDS ORDERED: ROCURONIUM 10 MG/ML (5 ML VIAL) IV ONE (14:31)
[2024-04-12] MEDS ORDERED: PROPOFOL 10 MG/ML 20 ML VIAL IV ONE (14:31)
[2024-04-12] MEDS ORDERED: PHENYLEPHRINE 10 MG/ML VIAL ONE (14:31)
[2024-04-12] MEDS ORDERED: fentaNYL (PF) 50 MCG/ML 2 ML AMP ONE (14:31)
[2024-04-12] MEDS ORDERED: SUCCINYLCHOLINE CHLORIDE 200 MG/10 ML VIAL IV ONE (14:31)
[2024-04-12] MEDS: LACTATED RINGERS 1,000 ML IV ONE ×3 (14:31→17:00)
[2024-04-12] MEDS: ACETAMINOPHEN IV (For NPO) 1,000 MG in EMPTY BAG 1 BAG IVPB SCH (14:56)
[2024-04-12] MEDS: LACTATED RINGERS 500 ML IV ONE ×2 (15:15→15:16)
--- NOTE | 2024-04-12 16:29 | P.ANPRN ---
Procedure Note - Anesthesia - Invasive Line Right Central Line Time Out Performed: Yes (1440) Date of Procedure: 04/12/24 Time of Procedure: 14:41 Location of Patient: OR Preparation: Sterile Prep, Sterile Dressing Central Line Location: Internal Jugular (right IJ) Ultrasound Used: Yes Purpose - Visualization and Identification of Vasculature: Yes Needle Guage: 18g angio Image Stored and Saved: Yes Narrative: Invasive line placement per sterile protocol utilized. Anesthesia note Procedure: Right internal jugular central venous catheter insertion: Triple- lumen catheter Sterile protocol followed. Right neck prepped. Ultrasound used. Lidocaine 1% used. Using ultrasound local anesthetic was instilled site over right Internal Jugular vein. Angiocath was used to gain access via ultrasound. Once free flow non-pulsatile blood flow was confirmed, 12 inch extension tubing was then placed on Angiocath. Once central venous pressure was confirmed, J-wire was then placed through Angiocath. Angiocath was then withdrawn. Local was instilled at J-wire site. Small skin sandrine was then made with provided sterile scalpel. Right IJ triple-lumen catheter was then inserted over the wire while maintaining control of wire at all times. Uneventful insertion with dilation. Free flow nonpulsatile blood flow through all 3 lm. Hooked up to IV tubing. Secured with suture. All lumens blood and flushed dressings applied. Drapes Removed. Attempts x1.
--- NOTE | 2024-04-12 16:41 | P.PN ---
Subjective Progress Note Date: 04/12/24 Principal diagnosis: The patient is admitted for repair after perforated delete ulcer. She is seems to be stabilizing. Recent central line placement. No significant new complaints. She is sitting comfortably. No fever no significant nausea, vomiting or diarrhea. Objective - Vital Signs Vital signs: Vital Signs Temp 97.7 F 04/12/24 12:00 Pulse 79 04/12/24 14:00 Resp 16 04/12/24 14:00 BP 146/88 04/12/24 14:00 Pulse Ox 96 04/12/24 14:00 FiO2 Intake & Output 04/11/24 04/12/24 04/12/24 18:59 06:59 18:59 Intake Total 3645.861 4731.833 920 Output Total 1120 1120 955 Balance 150.167 -95.167 -35 Weight 61.6 kg 61.6 kg Intake: IV 1150 920 570 Fluconazole in NaCl,Iso- 50 Osm 100 mg In Saline 1 50ml.bag @ 50 mls/hr IVPB DAILY [facility] Rx#:[id number] Invasive Line 6 20 20 Lactated Ringers 1,000 ml 900 900 525 @ 75 mls/hr IV .[id number] [facility] Rx#:[id number] Piperacillin-Tazobactam 3 200 25 .375 gm In Sodium Chloride 0.9% 100 ml @ 25 mls/hr IVPB Q12H [facility] Rx# :[id number] Intake, IV Titration 120.167 104.833 350 Amount Amiodarone 450 mg In 250 Dextrose 5% in Water 250 ml @ 0.5 MG/MIN 16.667 mls/hr IV .Q15H [facility] Rx#: [id number] Diltiazem 125 mg In 120.167 4.833 Sodium Chloride 0.9% 100 ml @ 5 MG/HR 5 mls/hr IV .Q24H [facility] Rx#:[id number] Piperacillin-Tazobactam 3 100 .375 gm In Sodium Chloride 0.9% 100 ml @ 25 mls/hr IVPB Q12H [facility] Rx# :[id number] Potassium Chloride 10 meq 100 In Water For Injection 1 100ml.bag @ 100 mls/hr IVPB Q1HR [facility] Rx#: [id number] Output: Gastric Drainage 250 150 30 Drainage 5 5 Lower Abdomen 5 5 Urine 865 965 925 Other: Voiding Method Indwelling Catheter Indwelling Catheter Indwelling Catheter ABP, PAP, CO, CI - Last Documented Arterial Blood Pressure 90/59 - Constitutional General appearance: Present: average body habitus - EENT Eyes: Absent: abnormal pupil - Neck Neck: Absent: lymphadenopathy - Respiratory Respiratory: bilateral: diminished - Cardiovascular Rhythm: regular Heart sounds: normal: S1, S2 Abnormal Heart Sounds: Absent: S3 Gallop - Gastrointestinal General gastrointestinal: Present: soft, tenderness - Psychiatric Psychiatric: Present: A&O x's 3, appropriate affect - Labs CBC & Chem 7: 04/12/24 06:04 04/12/24 06:04 Labs: Abnormal Lab Results - Last 24 Hours (Table) 04/12/24 04/12/24 04/12/24 Range/Units 00:13 06:04 06:04 WBC 37.4 H (3.8-10.6) k/uL MCHC 30.2 L (31.0-37.0) g/dL Potassium 3.2 L (3.5-5.1) mmol/L Chloride 115 H (98-107) mmol/L BUN 52 H (7-17) mg/dL Creatinine 1.26 H (0.52-1.04) mg/dL Glucose 123 H (74-99) mg/dL POC Glucose (mg/dL) 118 H (70-110) mg/dL Calcium 8.2 L (8.4-10.2) mg/dL Total Protein 4.6 L (6.3-8.2) g/dL Albumin 2.2 L (3.5-5.0) g/dL Microbiology - Last 24 Hours (Table) 04/08/24 23:00 Blood Culture - Preliminary Blood 04/08/24 22:45 Blood Culture - Preliminary Blood Assessment and Plan (1) Dehydration Current Visit: Yes Status: Acute Code(s): E86.0 - DEHYDRATION SNOMED Code(s): 92472625 (2) Perforated duodenal ulcer Current Visit: Yes Status: Acute Code(s): K26.5 - CHRONIC OR UNSPECIFIED DUODENAL ULCER WITH PERFORATION SNOMED Code(s): 02967661 (3) Peritonitis Current Visit: Yes Status: Acute Code(s): K65.9 - PERITONITIS, UNSPECIFIED SNOMED Code(s): 66155808 (4) Fall Current Visit: No Status: Acute Code(s): W19.XXXA - UNSPECIFIED FALL, INITIAL ENCOUNTER SNOMED Code(s): 9492686 (5) Ribs, multiple fractures Current Visit: No Status: Acute Code(s): S22.49XA - MULTIPLE FRACTURES OF RIBS, UNSP SIDE, INIT FOR CLOS FX SNOMED Code(s): 7072057 Plan: Continue current regimen of treatment. Peritonitis stabilizing. We will follow with multiple consultants. Check CBC and CMP in a.m. See orders otherwise. Time with Patient: Less than 30
[2024-04-12 17:22] LABS: Glucose,Whole Blood 122 mg/dL (70-110)
--- NOTE | 2024-04-12 17:28 | P.OP ---
Date of Procedure: 04/12/24 Procedure(s) Performed: PREOPERATIVE DIAGNOSIS: Perforated duodenal ulcer POSTOPERATIVE DIAGNOSIS: Same PROCEDURE: Reexploration with Billroth II gastrectomy with Myles-en-Y reconstruction SURGEON: Erik EBL: 75 cc ANESTHESIA: General COMPLICATIONS: None OPERATIVE PROCEDURE: Patient was placed on the operating table. She was then placed under general anesthesia. Right internal jugular catheter was placed by anesthesia. Abdomen prepped and draped sterilely. Previous reshma removed. PDS sutures removed. Entrance into the peritoneal cavity occurred bluntly. The patient's drain was seen inferior to the Lee patch repair. There was noted to be bile adjacent to and to the right and also superior above the liver along with purulent fluid. The purulent fluid was cultured. The portion of omentum that was sutured to the hernia repair was divided using LigaSure. The Lee patch was then removed. The patient's ulcer was widely open. The size of the perforated ulcer was 2.5 to 3 cm in diameter. There was also a posterior duodenal ulceration at the site. No bleeding was seen. I decided that reclosure was not an option at this point and planned for Billroth II gastrectomy. Entrance into the greater sac took place by dividing the gastrocolic omentum. A longitudinal incision was made on the proximal duodenum across the pylorus. A 25 EEA anvil was advanced into the stomach and brought out through the posterior wall of the stomach. This was sutured in place using a 3-0 GI silk pursestring suture. I then divided the antrum using a linear laparoscopic [place] 60 stapler with a green load. A second green load was required for a small 1 cm piece. I then mobilized the peripyloric region and proximal duodenum until we were past the site of the perforated ulcer. We were also this all to the posterior duodenal ulcer that was visualized. Small vessels were ligated using either LigaSure, 12 mm clips, or 0 silk ties. I then divided the duodenum using a green load TX 60 device. This TX 60 staple line was then imbricated using interrupted GI silk sutures. Next a opening was made in the colonic mesentery. A portion of the proximal jejunum was divided using a blue load [place] 60. The distal aspect of the bowel was brought up through our colonic mesentery defect. A small opening was made adjacent to the staple line and the 25 EEA stapler was brought distal and the obturator was brought out on the antimesenteric border. This was then connected to the previously placed and all in the posterior antrum. The stapler was tightened and subsequently fired. The stapler was removed. The anastomosis was widely patent. No bleeding was noted. I then divided the enterotomy site using a linear blue load [place] stapler. I then created a eutl-gs-pjrh anastomosis using an [place] blue load stapler between the proximal jejunum and the Myles limb. That defect was then closed using a running 3-0 Vicryl suture and a layer of imbricated 3-0 GI silk Lembert sutures on top of that. This was closed transversely and the anastomosis was again widely patent. The nasogastric tube was positioned proximal to the anastomotic site. The abdomen was thoroughly irrigated during the procedure with approximately 6 L of saline. A drain was brought through the previous drain site and placed from the perihepatic space anteriorly across the duodenal stump and antrum. This was sutured in place using a 3-0 silk stitch. Another drain was brought in from the left side of the abdomen and placed beneath the greater omentum adjacent to the jejunojejunostomy. This was also sutured to the skin using a 3-0 silk stitch. The midline fascia was then reapproximated using 2 separate double-stranded #1 PDS sutures. Subcutaneous tissues closed using 3-0 Vicryl sutures. Skin was loosely reapproximated with reshma. Sterile dressings applied. DISPOSITION: Stable to recovery room
--- NOTE | 2024-04-12 17:37 | P.PN ---
Subjective Progress Note Date: 04/11/24 Principal diagnosis: Reason for follow-up is perforated duodenal ulcer/peritonitis Patient is a 88-year-old female presenting to the hospital abdominal pain diagnosed with the pneumoperitoneum secondary to the perforated jejunal ulcer status post laparotomy and modified Lee patch. On today's evaluation that is 04/11/2024, patient has been afebrile, patient is breathing comfortably and is currently on 3 L current oxygen, patient denies having any significant cough no chest pain shortness of breath, patient denies nausea vomiting abdominal pain is currently controlled Patient white count is 34.6, creatinine is 1.64 Objective - Vital Signs Vital signs: Vital Signs Temp 97.4 F 04/11/24 16:00 Pulse 93 04/11/24 16:00 Resp 16 04/11/24 16:00 BP 169/74 04/11/24 16:00 Pulse Ox 93 04/11/24 16:00 FiO2 1L - Exam GENERAL DESCRIPTION: An elderly female lying in bed in no distress RESPIRATORY SYSTEM: Unlabored breathing , decreased breath sounds at bases HEART: S1 S2 regular rate and rhythm , ABDOMEN: Soft , mild tenderness EXTREMITIES: No edema feet - Labs CBC & Chem 7: 04/12/24 06:04 04/12/24 06:04 Labs: Abnormal Lab Results - Last 24 Hours (Table) 04/12/24 04/12/24 04/12/24 Range/Units 00:13 06:04 06:04 WBC 37.4 H (3.8-10.6) k/uL MCHC 30.2 L (31.0-37.0) g/dL Potassium 3.2 L (3.5-5.1) mmol/L Chloride 115 H (98-107) mmol/L BUN 52 H (7-17) mg/dL Creatinine 1.26 H (0.52-1.04) mg/dL Glucose 123 H (74-99) mg/dL POC Glucose (mg/dL) 118 H (70-110) mg/dL Calcium 8.2 L (8.4-10.2) mg/dL Total Protein 4.6 L (6.3-8.2) g/dL Albumin 2.2 L (3.5-5.0) g/dL Microbiology - Last 24 Hours (Table) 04/08/24 23:00 Blood Culture - Preliminary Blood 04/08/24 22:45 Blood Culture - Preliminary Blood Assessment and Plan (1) Peritonitis Current Visit: Yes Status: Acute Code(s): K65.9 - PERITONITIS, UNSPECIFIED SNOMED Code(s): 76315752 (2) Leukocytosis Current Visit: Yes Status: Acute Code(s): D72.829 - ELEVATED WHITE BLOOD CELL COUNT, UNSPECIFIED SNOMED Code(s): 356383380 (3) Perforated duodenal ulcer Current Visit: Yes Status: Acute Code(s): K26.5 - CHRONIC OR UNSPECIFIED DUODENAL ULCER WITH PERFORATION SNOMED Code(s): 71658642 Plan: 1patient presented to hospital with abdominal pain constipation has been diagnosed with the pneumoperitoneum secondary to perforated duodenal ulcer status post laparotomy and repair of the perforated jejunal ulcer we will need to confirm that her gram-negative and yeast. 2patient did have elevated white count, may benefit from repeat CT to make sure no evidence of any leak for now continue Zosyn and Diflucan and continue with supportive care Dictation was produced using [employer] dictation software. please excuse any grammatical, word or spelling errors. Time with Patient: Less than 30
--- NOTE | 2024-04-12 17:38 | P.PN ---
Subjective Progress Note Date: 04/12/24 Principal diagnosis: Reason for follow-up is perforated duodenal ulcer/peritonitis Patient is a 88-year-old female presenting to the hospital abdominal pain diagnosed with the pneumoperitoneum secondary to the perforated jejunal ulcer status post laparotomy and modified Lee patch. On today's evaluation that is 04/12/2024, Patient is afebrile this morning and denies any chills, patient mention breathing comfortably and is currently on 3 L current oxygen, patient denies any chest pain occasional cough patient some nausea but no vomiting denies any worsening abdominal pain and no diarrhea has been reported. Patient did have a white count of 37.4, creatinine 1.26 patient did have upper GI suspicious for leak Objective - Vital Signs Vital signs: Vital Signs Temp 97.7 F 04/12/24 12:00 Pulse 79 04/12/24 14:00 Resp 16 04/12/24 14:00 BP 146/88 04/12/24 14:00 Pulse Ox 96 04/12/24 14:00 FiO2 Intake & Output 04/11/24 04/12/24 04/12/24 18:59 06:59 18:59 Intake Total 9191.361 0730.833 920 Output Total 1120 1120 955 Balance 150.167 -95.167 -35 Weight 61.6 kg 61.6 kg Intake: IV 1150 920 570 Fluconazole in NaCl,Iso- 50 Osm 100 mg In Saline 1 50ml.bag @ 50 mls/hr IVPB DAILY [facility] Rx#:[id number] Invasive Line 6 20 20 Lactated Ringers 1,000 ml 900 900 525 @ 75 mls/hr IV .[id number] [facility] Rx#:[id number] Piperacillin-Tazobactam 3 200 25 .375 gm In Sodium Chloride 0.9% 100 ml @ 25 mls/hr IVPB Q12H [facility] Rx# :[id number] Intake, IV Titration 120.167 104.833 350 Amount Amiodarone 450 mg In 250 Dextrose 5% in Water 250 ml @ 0.5 MG/MIN 16.667 mls/hr IV .Q15H [facility] Rx#: [id number] Diltiazem 125 mg In 120.167 4.833 Sodium Chloride 0.9% 100 ml @ 5 MG/HR 5 mls/hr IV .Q24H [facility] Rx#:[id number] Piperacillin-Tazobactam 3 100 .375 gm In Sodium Chloride 0.9% 100 ml @ 25 mls/hr IVPB Q12H [facility] Rx# :[id number] Potassium Chloride 10 meq 100 In Water For Injection 1 100ml.bag @ 100 mls/hr IVPB Q1HR [facility] Rx#: [id number] Output: Gastric Drainage 250 150 30 Drainage 5 5 Lower Abdomen 5 5 Urine 865 965 925 Other: Voiding Method Indwelling Catheter Indwelling Catheter Indwelling Catheter ABP, PAP, CO, CI - Last Documented Arterial Blood Pressure 90/59 - Exam GENERAL DESCRIPTION: An elderly female lying in bed in no distress RESPIRATORY SYSTEM: Unlabored breathing , decreased breath sounds at bases HEART: S1 S2 regular rate and rhythm , ABDOMEN: Soft , mild tenderness EXTREMITIES: No edema feet - Labs CBC & Chem 7: 04/12/24 06:04 04/12/24 06:04 Labs: Abnormal Lab Results - Last 24 Hours (Table) 04/12/24 04/12/24 04/12/24 Range/Units 00:13 06:04 06:04 WBC 37.4 H (3.8-10.6) k/uL MCHC 30.2 L (31.0-37.0) g/dL Potassium 3.2 L (3.5-5.1) mmol/L Chloride 115 H (98-107) mmol/L BUN 52 H (7-17) mg/dL Creatinine 1.26 H (0.52-1.04) mg/dL Glucose 123 H (74-99) mg/dL POC Glucose (mg/dL) 118 H (70-110) mg/dL Calcium 8.2 L (8.4-10.2) mg/dL Total Protein 4.6 L (6.3-8.2) g/dL Albumin 2.2 L (3.5-5.0) g/dL Microbiology - Last 24 Hours (Table) 04/08/24 23:00 Blood Culture - Preliminary Blood 04/08/24 22:45 Blood Culture - Preliminary Blood Assessment and Plan (1) Peritonitis Current Visit: Yes Status: Acute Code(s): K65.9 - PERITONITIS, UNSPECIFIED SNOMED Code(s): 24973296 (2) Leukocytosis Current Visit: Yes Status: Acute Code(s): D72.829 - ELEVATED WHITE BLOOD CELL COUNT, UNSPECIFIED SNOMED Code(s): 390655310 (3) Perforated duodenal ulcer Current Visit: Yes Status: Acute Code(s): K26.5 - CHRONIC OR UNSPECIFIED DUODENAL ULCER WITH PERFORATION SNOMED Code(s): 23985088 Plan: 1patient presented to hospital with abdominal pain constipation has been diagnosed with the pneumoperitoneum secondary to perforated duodenal ulcer status post laparotomy and repair of the perforated jejunal ulcer we will need to cover for gram-negative and yeast. 2patient did have elevated white count, and did have a upper GI that is suspicious for leak patient is scheduled for repeat surgery this afternoon nursing staff has been advised to make sure OR cultures were obtained both aerobic and anaerobic that will guide further antibiotic therapy, for now continue Zosyn and Diflucan, multiple family members at the bedside question concern answered Dictation was produced using [employer] dictation software. please excuse any grammatical, word or spelling errors. Time with Patient: Less than 30
[2024-04-12 17:47] LABS: ABG Base Excess -2.3 mmol/L; ABG HCO3 24 mmol/L (21-25); ABG Oxygen Saturation 99.1 % (94-97); ABG PCO2 46 mmHg (35-45); ABG PH 7.33 (7.35-7.45); ABG PO2 148 mmHg (83-108); ABG TCO2 25 mmol/L (19-24); Allen Test Performed? Yes
--- NOTE | 2024-04-12 18:31 | XR ---
EXAMINATION TYPE: XR chest 1V portable DATE OF EXAM: 04/12/2024 Comparison: 04/12/2024 Clinical History: 88-year-old female Tube placement/ OG placement, IJ placement Findings: ET tube tip at the level of the medial clavicular heads. NG tube courses below the diaphragm. Right I J CVC tip cavoatrial junction. Hyperinflation. Ongoing moderate right and small left pleural effusion s. Right heart margin obscured by adjacent pleural parenchymal opacity. Skin reshma overlying the up per abdomen suggesting recent surgery. Impression: Satisfactory ET and NG tubes. Otherwise, similar COPD with moderate right and small left pleural effu sions and adjacent atelectasis and/or consolidation.
[2024-04-12 18:33] LABS: Basophils # (A) 0.1 k/uL (0-0.2); Basophils % (A) 0 %; Eosinophils % (A) 0 %; HCT 42.9 % (34.0-46.0); Hypochromasia Slight; Lymphocytes # (A) 1.7 k/uL (1.0-4.8); Lymphocytes % (A) 3 %; MCH 28.8 pg (25.0-35.0); MCHC 30.4 g/dL (31.0-37.0); MCV 94.6 fL (80.0-100.0); Mean Platelet Volume 8.7; Monocytes # (A) 1.6 k/uL (0-1.0); Monocytes % (A) 3 %; Neutrophils # (A) 50.6 k/uL (1.3-7.7); Neutrophils % (A) 93 %; Platelet Count 399 k/uL (150-450); RBC 4.53 m/uL (3.80-5.40)
[2024-04-12 18:57] LABS: WBC 54.3 k/uL (3.8-10.6)
[2024-04-12] MEDS: IPRATROPIUM-ALBUTEROL 3 ML NEB INHALATION SCH (19:56)
[2024-04-12] MEDS: CHLORHEXIDINE GLUCONATE 15 ML CUP MUCOUS MEM SCH (21:34)
[2024-04-13] MEDS: SODIUM CHLORIDE 0.9% 500 ML 500 ML IV ONE (02:20)
[2024-04-13 04:54] LABS: African American GFR (CKD) 35 (>60 ml/min/1.73 sqM); Anion Gap 6 mmol/L; Blood Urea Nitrogen 48 mg/dL (7-17); Carbon Dioxide 21 mmol/L (22-30); Chloride 114 mmol/L (98-107); Glucose 133 mg/dL (74-99); Non-African American GFR(CKD) 31 (>60 ml/min/1.73 sqM); Sodium 141 mmol/L (137-145)
[2024-04-13 05:21] LABS: ABG Base Excess -1.6 mmol/L; ABG HCO3 22 mmol/L (21-25); ABG Oxygen Saturation 99.3 % (94-97); ABG PCO2 34 mmHg (35-45); ABG PH 7.43 (7.35-7.45); ABG PO2 128 mmHg (83-108); ABG TCO2 23 mmol/L (19-24); Allen Test Performed? Yes
[2024-04-13 05:21] LABS: HCT 32.2 % (34.0-46.0); Hypochromasia Moderate; MCH 28.5 pg (25.0-35.0); MCHC 29.5 g/dL (31.0-37.0); MCV 96.6 fL (80.0-100.0); Mean Platelet Volume 10.3; Platelet Count 325 k/uL (150-450); RBC 3.33 m/uL (3.80-5.40); RDW 14.1 % (11.5-15.5); WBC 34.8 k/uL (3.8-10.6)
[2024-04-13 05:25] LABS: HGB 9.5 gm/dL (11.4-16.0)
--- NOTE | 2024-04-13 08:41 | XR ---
EXAMINATION TYPE: XR chest 1V portable DATE OF EXAM: 04/13/2024 5:42 AM CLINICAL INDICATION:Female, 88 years old with history of Tube placement; COMPARISON: Chest radiographs from 04/12/2024 TECHNIQUE: XR chest 1V portable Frontal view of the chest. FINDINGS: Lungs/Pleura: Blunting of the right costophrenic angle. There is no evidence of left pleural effusion . Pleural effusion, focal consolidation, or pneumothorax. Pulmonary vascularity: Unremarkable. Heart/mediastinum: Cardiomediastinal silhouette is unremarkable. Musculoskeletal: No acute osseous pathology. Nasogastric tube with tip terminating under the diaphragm and side-port projecting over the distal es ophagus.. Right central venous catheter tip terminating this. Vena cava. Endotracheal tube terminating above the jose measuring 4.4 cm. IMPRESSION: 1. Interval retraction of nasogastric tube now with side-port projecting over the distal esophagus. Consider advancement of 9 cm for optimal placement. 2. Endotracheal tube above the jose. 3. Right Central venous catheter tip in appropriate position. 4. Similar blunting of the costophrenic angle suggesting pleural effusion
--- NOTE | 2024-04-13 08:49 | P.PN ---
Subjective Progress Note Date: 04/13/24 This is an 80-year-old female with a history of a recent fall about 2 weeks ago who was brought into the emergency department with complaints of weakness and poor oral intake. Patient had an exploratory laparotomy and was found to have a perforated duodenal ulcer with a Lee patch placed. She remains in ICU. She is alert and oriented. She is still significantly weak. 04/11/2024 Patient seen and evaluated sitting in chair at bedside this morning. Yesterday had a salvador catheter placed by urology. Patient reports she is very sore today. 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 Valencia. Patient tolerated well. She remains on mechanical ventilation. Objective - Vital Signs Vital signs: Vital Signs Temp 98.3 F 04/13/24 04:00 Pulse 69 04/13/24 07:00 Resp 19 04/13/24 07:00 BP 125/52 04/13/24 07:00 Pulse Ox 99 04/13/24 07:00 FiO2 40 04/13/24 08:00 Intake & Output 04/12/24 04/13/24 04/13/24 18:59 06:59 18:59 Intake Total 2298.5 3273.235 75 Output Total 1630 620 28 Balance 668.5 2653.235 47 Weight 61.6 kg 61.5 kg Intake: IV 1845 2505 75 ACETAMINOPHEN IV (For NPO 800 ) 1,000 mg In Empty Bag 1 bag @ 400 mls/hr IVPB Q6HR [facility] Rx#:[id number] Invasive Line 6 20 30 Lactated Ringers 1,000 ml 600 975 75 @ 75 mls/hr IV .[id number] [facility] Rx#:[id number] Piperacillin-Tazobactam 3 25 .375 gm In Sodium Chloride 0.9% 100 ml @ 25 mls/hr IVPB Q12H [facility] Rx# :[id number] Piperacillin-Tazobactam 3 200 .375 gm In Sodium Chloride 0.9% 100 ml @ 25 mls/hr IVPB Q8H [facility] Rx#: [id number] Sodium Chloride 0.9% 500 500 ml 500 ml @ 999 mls/hr IV .Q31M [facility] Rx#:[id number] Intake, IV Titration 453.5 768.235 Amount ACETAMINOPHEN IV (For NPO 400 ) 1,000 mg In Empty Bag 1 bag @ 400 mls/hr IVPB Q6HR [facility] Rx#:[id number] Amiodarone 450 mg In 250 Dextrose 5% in Water 250 ml @ 0.5 MG/MIN 16.667 mls/hr IV .Q15H [facility] Rx#: [id number] Amiodarone 450 mg In 218.893 Dextrose 5% in Water 250 ml @ 0.5 MG/MIN 16.667 mls/hr IV .Q15H [facility] Rx#: [id number] Diltiazem 125 mg In 103.5 Sodium Chloride 0.9% 100 ml @ 5 MG/HR 5 mls/hr IV .Q24H [facility] Rx#:[id number] Potassium Chloride 10 meq 100 100 In Water For Injection 1 100ml.bag @ 100 mls/hr IVPB Q1HR [facility] Rx#: [id number] propofoL 1,000 mg In 49.342 Empty Bag 1 bag @ 15 MCG/ KG/MIN 5.544 mls/hr IV . Q18H3M [facility] Rx#:[id number] Output: Gastric Drainage 30 Drainage 250 Lower Right Abdomen 140 Medial Abdomen 110 Urine 1525 370 28 Estimated Blood Loss 75 Other: Voiding Method Indwelling Catheter Indwelling Catheter ABP, PAP, CO, CI - Last Documented Arterial Blood Pressure 90/59 - Constitutional General appearance: Present: no acute distress - EENT Eyes: Present: PERRLA - Neck Neck: Present: normal ROM. Absent: lymphadenopathy, rigidity - Respiratory Respiratory: bilateral: CTA - Cardiovascular Heart sounds: normal: S1, S2 - Gastrointestinal General gastrointestinal: Present: soft - Integumentary Integumentary: Present: normal, normal turgor - Labs CBC & Chem 7: 04/13/24 03:25 04/13/24 03:25 Labs: Abnormal Lab Results - Last 24 Hours (Table) 04/12/24 04/12/24 04/12/24 Range/Units 17:21 17:39 18:14 WBC 54.3 H* (3.8-10.6) k/uL RBC (3.80-5.40) m/uL Hgb (11.4-16.0) gm/dL Hct (34.0-46.0) % MCHC 30.4 L (31.0-37.0) g/dL Neutrophils # 50.6 H (1.3-7.7) k/uL Monocytes # 1.6 H (0-1.0) k/uL ABG pH 7.33 L (7.35-7.45) ABG pCO2 46 H (35-45) mmHg ABG pO2 148 H (83-108) mmHg ABG Total CO2 25 H (19-24) mmol/L ABG O2 Saturation 99.1 H (94-97) % Chloride (98-107) mmol/L Carbon Dioxide (22-30) mmol/L BUN (7-17) mg/dL Creatinine (0.52-1.04) mg/dL Glucose (74-99) mg/dL POC Glucose (mg/dL) 122 H (70-110) mg/dL Calcium (8.4-10.2) mg/dL 04/13/24 04/13/24 04/13/24 Range/Units 03:25 03:25 05:15 WBC 34.8 H (3.8-10.6) k/uL RBC 3.33 L (3.80-5.40) m/uL Hgb 9.5 L D (11.4-16.0) gm/dL Hct 32.2 L (34.0-46.0) % MCHC 29.5 L (31.0-37.0) g/dL Neutrophils # (1.3-7.7) k/uL Monocytes # (0-1.0) k/uL ABG pH (7.35-7.45) ABG pCO2 34 L (35-45) mmHg ABG pO2 128 H (83-108) mmHg ABG Total CO2 (19-24) mmol/L ABG O2 Saturation 99.3 H (94-97) % Chloride 114 H (98-107) mmol/L Carbon Dioxide 21 L (22-30) mmol/L BUN 48 H (7-17) mg/dL Creatinine 1.51 H (0.52-1.04) mg/dL Glucose 133 H (74-99) mg/dL POC Glucose (mg/dL) (70-110) mg/dL Calcium 7.0 L (8.4-10.2) mg/dL Microbiology - Last 24 Hours (Table) 04/08/24 23:00 Blood Culture - Preliminary Blood 04/08/24 22:45 Blood Culture - Preliminary Blood Assessment and Plan (1) Dehydration Current Visit: Yes Status: Acute Code(s): E86.0 - DEHYDRATION SNOMED Code(s): 95921947 (2) Acute kidney injury Current Visit: Yes Status: Acute Code(s): N17.9 - ACUTE KIDNEY FAILURE, UNSPECIFIED SNOMED Code(s): 87496210 (3) Hematoma of spleen without rupture of capsule Current Visit: Yes Status: Acute Code(s): D73.5 - INFARCTION OF SPLEEN SNOMED Code(s): 398015711 (4) Fall Current Visit: No Status: Acute Code(s): W19.XXXA - UNSPECIFIED FALL, INITIAL ENCOUNTER SNOMED Code(s): 1494124 (5) Ribs, multiple fractures Current Visit: No Status: Acute Code(s): S22.49XA - MULTIPLE FRACTURES OF RIBS, UNSP SIDE, INIT FOR CLOS FX SNOMED Code(s): 7025489 (6) Perforated duodenal ulcer Current Visit: Yes Status: Acute Code(s): K26.5 - CHRONIC OR UNSPECIFIED DUODENAL ULCER WITH PERFORATION SNOMED Code(s): 28527990 Plan: Appreciate multiple consultants. Check CBC and CMP in the morning. Patient seen and evaluated by nurse practitioner, physician in agreement with plan
--- NOTE | 2024-04-13 11:11 | P.PN ---
Subjective Progress Note Date: 04/13/24 Principal diagnosis: Perforated viscus. This is an 88-year-old female, recent history of fall about 2 weeks ago, sustained bruising to her left ribs. Patient was brought in yesterday to the ER mostly with symptoms of weakness, failure to thrive, poor oral intake, and suspected dehydration. Patient was also complaining of cough and shortness of breath, no fever no chills, no nausea no vomiting. In addition the patient had no bowel movement for the last 4 days. Apparently the patient has been experiencing intermittent episodes of confusion for the last 1 year. Workup in the ER included a CT of the abdomen and pelvis, it showed pneumoperitoneum and free fluid. Patient was felt that she has ruptured viscus, she was seen by surgery and she underwent exploratory laparotomy for her pneumoperitoneum, and she was found to have perforated duodenal ulcer. Patient had modified Lee patch and postoperatively the patient was extubated nonetheless she was admitted to the ICU, and this consult was initiated. I saw the patient in the ICU this morning, she is on 4 L nasal cannula, does not seem to be in any distress. She is already on Zosyn, and I added Diflucan. She is on LR at 125 cc/h. Her WBC count is 28.6, electrolytes are normal hemoglobin is 10.7 BUN is 97 creatinine down to 2.45 from 3.27 yesterday. Progress note dated April 10, 2024. 88-year-old female seen yesterday in consultation. She was admitted on April 08, with confusion and weakness. The patient had a repair of a perforated duodenal ulcer on April 09. Today is postop day #1. She is currently seen today in room 261. She is currently on 6 L of oxygen by nasal cannula. She has an NG tube in place. She is getting lactated Ringer's at 125 cc an hour. For atrial fibrillation with a rapid ventricular response, she was started on Cardizem drip at 5 mg an hour, and amiodarone 0.5 mg/min. No new labs today other than a glucose of 154. The labs from yesterday are reviewed. White count was 28.6. Hemoglobin 10.7, platelet count was normal. BUN and creatinine were 97 and 2.45. Chest x-ray suggested bilateral pleural effusions. Progress note dated April 11, 2024. 88-year-old female seen today in room 261. The patient was admitted on April 08, with confusion and weakness. The patient was discovered to have a perforated duodenal ulcer, and had a surgical repair performed on April 09. Today is postop day #2. The patient is currently without distress. She is on room air. NG tube remains in place. She is getting lactated Ringer's at 75 cc an hour. Because of atrial fibrillation and RVR, she continues on amiodarone 0.5 mg/min, and Cardizem at 5 mg an hour. Lab data includes a white count 34.6, hemoglobin 9.1, hematocrit 36.6, and a platelet count 442,000. Sodium 143, potassium 4.1, chlorides 113, CO2 23, BUN 71, creatinine 1.64. Glucose is 134. Albumin is 2.3. Blood cultures are currently negative. No chest x-ray today has been ordered. Progress note dated April 12, 2024. This is an 88-year-old female who is seen in room 261. The patient was admitted back on April 08, with confusion and weakness. She was discovered to have a perforated duodenal ulcer, and had surgical repair performed on April 09. Today is postoperative day #3. The patient is going to have a upper GI study today. She is getting lactated Ringer's at 75 cc an hour, 3 L of oxygen by nasal cannula, Cardizem at 5 mg an hour, and amiodarone at 0.5 mg/min. White count was 37.4, hemoglobin 11.6, hematocrit 38.5, and platelet count was normal. Sodium 145, potassium 3.2, chloride 115, CO2 24, BUN 52, creatinine 1.26. Glucose 123. Calcium 8.2. BUN 2.2. Blood cultures are currently negative. The patient's chest x-ray is stable, with some basilar atelectasis on the right. Upper GI study showed a leak, at the site of patch placement, in the duodenal bulb. Progress note dated April 13, 2024. 88-year-old female seen today in room 261. The patient is postop day #1, status post Billroth II gastrectomy, and Myles-en-Y reconstruction. The patient is currently on the ventilator. Ventilator settings include volume assist-control, rate 16, tidal volume 350, FiO2 40%, PEEP of 5. Blood gases show pO2 128, pCO2 34, pH is 7.43. The blood gases were done on 50% FiO2. The patient is on lactated Ringer's at 75 cc an hour, amiodarone 0.5 mg/min, Cardizem at 5 mg/h, and propofol, is restarted at a low rate. Current labs include a white count 34.8, hemoglobin 9.5, hematocrit 32.2, and a platelet count of 325,000. Sodium 141, potassium 4, chloride 114, CO2 21, BUN 48, creatinine 1.51. Glucose is 133. Calcium is 7. Blood cultures are negative. Chest x-ray shows in addition to endotracheal tube, and central venous line, blunting of the costophrenic angles. Objective - Vital Signs Vital signs: Vital Signs Temp 98.7 F 04/13/24 08:00 Pulse 71 04/13/24 10:00 Resp 21 04/13/24 10:00 BP 112/47 04/13/24 10:00 Pulse Ox 100 04/13/24 10:00 FiO2 40 04/13/24 08:00 Intake & Output 04/12/24 04/13/24 04/13/24 18:59 06:59 18:59 Intake Total 2298.5 3273.235 275 Output Total 1630 620 70 Balance 668.5 2653.235 205 Weight 61.6 kg 61.5 kg Intake: IV 1845 2505 275 ACETAMINOPHEN IV (For NPO 800 ) 1,000 mg In Empty Bag 1 bag @ 400 mls/hr IVPB Q6HR [facility] Rx#:[id number] Fluconazole in NaCl,Iso- 50 Osm 100 mg In Saline 1 50ml.bag @ 50 mls/hr IVPB DAILY [facility] Rx#:[id number] Invasive Line 6 20 30 Lactated Ringers 1,000 ml 600 975 225 @ 75 mls/hr IV .[id number] [facility] Rx#:[id number] Piperacillin-Tazobactam 3 25 .375 gm In Sodium Chloride 0.9% 100 ml @ 25 mls/hr IVPB Q12H [facility] Rx# :[id number] Piperacillin-Tazobactam 3 200 .375 gm In Sodium Chloride 0.9% 100 ml @ 25 mls/hr IVPB Q8H [facility] Rx#: [id number] Sodium Chloride 0.9% 500 500 ml 500 ml @ 999 mls/hr IV .Q31M [facility] Rx#:[id number] Intake, IV Titration 453.5 768.235 Amount ACETAMINOPHEN IV (For NPO 400 ) 1,000 mg In Empty Bag 1 bag @ 400 mls/hr IVPB Q6HR [facility] Rx#:[id number] Amiodarone 450 mg In 250 Dextrose 5% in Water 250 ml @ 0.5 MG/MIN 16.667 mls/hr IV .Q15H [facility] Rx#: [id number] Amiodarone 450 mg In 218.893 Dextrose 5% in Water 250 ml @ 0.5 MG/MIN 16.667 mls/hr IV .Q15H [facility] Rx#: [id number] Diltiazem 125 mg In 103.5 Sodium Chloride 0.9% 100 ml @ 5 MG/HR 5 mls/hr IV .Q24H [facility] Rx#:[id number] Potassium Chloride 10 meq 100 100 In Water For Injection 1 100ml.bag @ 100 mls/hr IVPB Q1HR [facility] Rx#: [id number] propofoL 1,000 mg In 49.342 Empty Bag 1 bag @ 15 MCG/ KG/MIN 5.544 mls/hr IV . Q18H3M [facility] Rx#:[id number] Output: Gastric Drainage 30 Drainage 250 Lower Right Abdomen 140 Medial Abdomen 110 Urine 1525 370 70 Estimated Blood Loss 75 Other: Voiding Method Indwelling Catheter Indwelling Catheter Indwelling Catheter ABP, PAP, CO, CI - Last Documented Arterial Blood Pressure 90/59 - Exam No acute distress, sedated, with an orally placed endotracheal tube. She has a orogastric tube as well. HEENT examination is grossly unremarkable. Neck supple. Full range of motion. No adenopathy thyromegaly or neck vein dist ention. Cardiovascular examination reveals regular rhythm rate. S1-S2 normal. No S3 or S4. No discernible murmur noted. Heart rate is 71 bpm. Lungs reveal rhonchi. No wheezes or crackles. Breath sounds equal. Saturations are 99 %. Abdomen soft, without bowel sounds. Abdominal incision is dressed. Extremities are intact. No cyanosis clubbing or edema. Skin is without rash or lesion. Neurologic examination is brief but nonfocal. - Labs CBC & Chem 7: 04/13/24 03:25 04/13/24 03:25 Labs: Abnormal Lab Results - Last 24 Hours (Table) 04/12/24 04/12/24 04/12/24 Range/Units 17:21 17:39 18:14 WBC 54.3 H* (3.8-10.6) k/uL RBC (3.80-5.40) m/uL Hgb (11.4-16.0) gm/dL Hct (34.0-46.0) % MCHC 30.4 L (31.0-37.0) g/dL Neutrophils # 50.6 H (1.3-7.7) k/uL Monocytes # 1.6 H (0-1.0) k/uL ABG pH 7.33 L (7.35-7.45) ABG pCO2 46 H (35-45) mmHg ABG pO2 148 H (83-108) mmHg ABG Total CO2 25 H (19-24) mmol/L ABG O2 Saturation 99.1 H (94-97) % Chloride (98-107) mmol/L Carbon Dioxide (22-30) mmol/L BUN (7-17) mg/dL Creatinine (0.52-1.04) mg/dL Glucose (74-99) mg/dL POC Glucose (mg/dL) 122 H (70-110) mg/dL Calcium (8.4-10.2) mg/dL 04/13/24 04/13/24 04/13/24 Range/Units 03:25 03:25 05:15 WBC 34.8 H (3.8-10.6) k/uL RBC 3.33 L (3.80-5.40) m/uL Hgb 9.5 L D (11.4-16.0) gm/dL Hct 32.2 L (34.0-46.0) % MCHC 29.5 L (31.0-37.0) g/dL Neutrophils # (1.3-7.7) k/uL Monocytes # (0-1.0) k/uL ABG pH (7.35-7.45) ABG pCO2 34 L (35-45) mmHg ABG pO2 128 H (83-108) mmHg ABG Total CO2 (19-24) mmol/L ABG O2 Saturation 99.3 H (94-97) % Chloride 114 H (98-107) mmol/L Carbon Dioxide 21 L (22-30) mmol/L BUN 48 H (7-17) mg/dL Creatinine 1.51 H (0.52-1.04) mg/dL Glucose 133 H (74-99) mg/dL POC Glucose (mg/dL) (70-110) mg/dL Calcium 7.0 L (8.4-10.2) mg/dL Microbiology - Last 24 Hours (Table) 04/08/24 23:00 Blood Culture - Preliminary Blood 04/08/24 22:45 Blood Culture - Preliminary Blood Assessment and Plan Assessment: Postoperative day #4, S/P exploratory laparotomy, repair of perforated duodenal ulcer, and application of a modified Lee patch. Postoperative day #1, status post Billroth II gastrectomy, and Myles-en-Y reconstruction. Upper GI series, showing leak, at the site of the modified Lee patch. Acute abdominal sepsis. Acute atrial fibrillation, with rapid ventricular response. History of splenic hematoma, without rupture. Acute dehydration with acute kidney injury. Nonanion gap metabolic acidosis. Leukocytosis, secondary to sepsis. Hypovolemic hyponatremia, recovered. General medical debility. Plan: Plan dated April 10, 2024. The patient had surgery done yesterday, she had an exploratory laparotomy, and repair of a perforated duodenal ulcer. She is currently on 6 L nasal cannula. She did develop some atrial fibrillation with RVR overnight. She was placed on both Cardizem drip, and amiodarone drip. Labs, x-rays, and medications are all reviewed. We will continue to follow the patient, make recommendations along the way. Prognosis is guarded. Plan dated April 11, 2024. The patient appears to be doing relatively well. She still has an NG tube in place. She still NPO. She continues on Cardizem, and amiodarone, for atrial fibrillation with RVR. Labs, x-rays, and medications are reviewed. The patient remains on room air. NG tube remains in place. She is getting lactated Ringer's at 75 cc an hour. We will continue to follow make recommendations along the way. The patient's overall prognosis remains very guarded.\ Plan dated April 12, 2024. The patient's upper GI series, showed a leak, at the site of the modified Lee patch. The patient's labs, x-rays, and medications are all reviewed. The patient is currently on 3 L of oxygen. We will continue to follow make recom mendations along the way. In addition, the patient continues on Cardizem at 5 mg an hour, and amiodarone at 0.5 mg/min, for atrial fibrillation/RVR. The patient is also getting lactated Ringer's at 75 cc an hour. We will continue to follow make recommendations along the way. Prognosis is guarded. Plan dated April 13, 2024. The patient's upper GI series showed a leak at the site of the modified Lee patch. The patient is postoperative day #1, status post Billroth II gastrectomy, and Myles-en-Y reconstruction. The patient is currently on the mechanical ventilator, and will stay there overnight. She has a endotracheal tube in place, and an orogastric tube in place as well. She continues on amiodarone at 0.5 mg/min, Cardizem 5 mg/h. Propofol was restarted. She is getting lactated Ringer's at 75 cc an hour. Labs, x-rays, and medications are reviewed. No additional recommendations are made at this time. We will continue to follow, as prognosis is guarded. Time with Patient: Greater than 30
--- NOTE | 2024-04-13 11:38 | P.PN ---
Subjective Patient is seen for follow-up for acute kidney injury. Patient was taken back to the OR last night for a leak around the Lee patch. Patient is currently on the vent. Urine output has decreased to about 20 to 50 cc an hour. Patient has had obst ructed Walters catheter and this will be flushed. Serum creatinine increased to 1.5 today. Maintained on Ringer lactate at 75 cc an hour. Patient is also maintained on Cardizem drip for A-fib along with amiodarone drip. Objective - Vital Signs Vital signs: Vital Signs Temp 98.7 F 04/13/24 08:00 Pulse 71 04/13/24 10:00 Resp 21 04/13/24 10:00 BP 112/47 04/13/24 10:00 Pulse Ox 100 04/13/24 10:00 FiO2 40 04/13/24 11:14 Intake & Output 04/12/24 04/13/24 04/13/24 18:59 06:59 18:59 Intake Total 2298.5 3273.235 320.461 Output Total 1630 620 70 Balance 668.5 2653.235 250.461 Weight 61.6 kg 61.5 kg 61.5 kg Intake: IV 1845 2505 275 ACETAMINOPHEN IV (For NPO 800 ) 1,000 mg In Empty Bag 1 bag @ 400 mls/hr IVPB Q6HR [facility] Rx#:[id number] Fluconazole in NaCl,Iso- 50 Osm 100 mg In Saline 1 50ml.bag @ 50 mls/hr IVPB DAILY [facility] Rx#:[id number] Invasive Line 6 20 30 Lactated Ringers 1,000 ml 600 975 225 @ 75 mls/hr IV .[id number] [facility] Rx#:[id number] Piperacillin-Tazobactam 3 25 .375 gm In Sodium Chloride 0.9% 100 ml @ 25 mls/hr IVPB Q12H [facility] Rx# :[id number] Piperacillin-Tazobactam 3 200 .375 gm In Sodium Chloride 0.9% 100 ml @ 25 mls/hr IVPB Q8H [facility] Rx#: [id number] Sodium Chloride 0.9% 500 500 ml 500 ml @ 999 mls/hr IV .Q31M [facility] Rx#:[id number] Intake, IV Titration 453.5 768.235 45.461 Amount ACETAMINOPHEN IV (For NPO 400 ) 1,000 mg In Empty Bag 1 bag @ 400 mls/hr IVPB Q6HR [facility] Rx#:[id number] Amiodarone 450 mg In 250 Dextrose 5% in Water 250 ml @ 0.5 MG/MIN 16.667 mls/hr IV .Q15H [facility] Rx#: [id number] Amiodarone 450 mg In 218.893 Dextrose 5% in Water 250 ml @ 0.5 MG/MIN 16.667 mls/hr IV .Q15H [facility] Rx#: [id number] Diltiazem 125 mg In 103.5 Sodium Chloride 0.9% 100 ml @ 5 MG/HR 5 mls/hr IV .Q24H [facility] Rx#:[id number] Potassium Chloride 10 meq 100 100 In Water For Injection 1 100ml.bag @ 100 mls/hr IVPB Q1HR [facility] Rx#: [id number] propofoL 1,000 mg In 49.342 45.461 Empty Bag 1 bag @ 15 MCG/ KG/MIN 5.544 mls/hr IV . Q18H3M [facility] Rx#:[id number] Output: Gastric Drainage 30 Drainage 250 Lower Right Abdomen 140 Medial Abdomen 110 Urine 1525 370 70 Estimated Blood Loss 75 Other: Voiding Method Indwelling Catheter Indwelling Catheter Indwelling Catheter ABP, PAP, CO, CI - Last Documented Arterial Blood Pressure 90/59 - Exam patient is sedated and on the vent Examination of the heart S1 and S2 Examination of the lungs decreased breath sounds at the bases Abdomen is soft Examination lower extremity shows 1+ edema - Labs CBC & Chem 7: 04/13/24 03:25 04/13/24 03:25 Labs: Abnormal Lab Results - Last 24 Hours (Table) 04/12/24 04/12/24 04/12/24 Range/Units 17:21 17:39 18:14 WBC 54.3 H* (3.8-10.6) k/uL RBC (3.80-5.40) m/uL Hgb (11.4-16.0) gm/dL Hct (34.0-46.0) % MCHC 30.4 L (31.0-37.0) g/dL Neutrophils # 50.6 H (1.3-7.7) k/uL Monocytes # 1.6 H (0-1.0) k/uL ABG pH 7.33 L (7.35-7.45) ABG pCO2 46 H (35-45) mmHg ABG pO2 148 H (83-108) mmHg ABG Total CO2 25 H (19-24) mmol/L ABG O2 Saturation 99.1 H (94-97) % Chloride (98-107) mmol/L Carbon Dioxide (22-30) mmol/L BUN (7-17) mg/dL Creatinine (0.52-1.04) mg/dL Glucose (74-99) mg/dL POC Glucose (mg/dL) 122 H (70-110) mg/dL Calcium (8.4-10.2) mg/dL 04/13/24 04/13/24 04/13/24 Range/Units 03:25 03:25 05:15 WBC 34.8 H (3.8-10.6) k/uL RBC 3.33 L (3.80-5.40) m/uL Hgb 9.5 L D (11.4-16.0) gm/dL Hct 32.2 L (34.0-46.0) % MCHC 29.5 L (31.0-37.0) g/dL Neutrophils # (1.3-7.7) k/uL Monocytes # (0-1.0) k/uL ABG pH (7.35-7.45) ABG pCO2 34 L (35-45) mmHg ABG pO2 128 H (83-108) mmHg ABG Total CO2 (19-24) mmol/L ABG O2 Saturation 99.3 H (94-97) % Chloride 114 H (98-107) mmol/L Carbon Dioxide 21 L (22-30) mmol/L BUN 48 H (7-17) mg/dL Creatinine 1.51 H (0.52-1.04) mg/dL Glucose 133 H (74-99) mg/dL POC Glucose (mg/dL) (70-110) mg/dL Calcium 7.0 L (8.4-10.2) mg/dL Microbiology - Last 24 Hours (Table) 04/08/24 23:00 Blood Culture - Preliminary Blood 04/08/24 22:45 Blood Culture - Preliminary Blood Assessment and Plan Assessment: 1. Acute kidney injury, ATN currently nonoliguric. UA is quite benign. No evidence of obstruction on CT of the abdomen. Walters catheter has been obstructed previously. This will be flushed. 2. Non-gap metabolic acidosis secondary to acute kidney injury. 3. Perforated duodenal ulcer status post explorative laparotomy with lee patch on 04/09/2024. Patient had reexploration for leak around the Lee patch on 04/12/2024 4. Status post fall with rib fractures 5. A. fib with RVR status post amiodarone drip Plan: continue with IV fluids. Flush Walters catheter Repeat labs in a.m.
[2024-04-13 11:59] LABS: Glucose,Whole Blood 139 mg/dL (70-110)
--- NOTE | 2024-04-13 13:53 | P.PN ---
Subjective Progress Note Date: 04/13/24 CHIEF COMPLAINT: Perforated duodenal ulcer HISTORY OF PRESENT ILLNESS: Patient is status post exploratory laparotomy with modified Lee patch for perforated duodenal ulcer on 04/09/24. Upper GI had reported a leak and patient taken back to the OR yesterday. She is postop day #1 status post reexploration with Billroth II gastrectomy with Myles-en-Y reconstruction. Patient is currently in the ICU and is intubated and on mechanical ventilation. Afebrile. WBC is down from 54.3-34.8 Hgb 9.5 creatinine 1.51 PHYSICAL EXAM: VITAL SIGNS: Reviewed. GENERAL: Intubated ABDOMEN: Soft. Nondistended. Incisional dressing clean dry and intact. 2 SHRUTHI drains serosanguineous output ASSESSMENT: 1. Perforated duodenal ulcer 2. Splenic subcapsular hematoma without rupture 3. Afib 4. Severe protein calorie malnutrition PLAN: -Continue to keep patient intubated -Keep patient n.p.o. -Consult dispatcher electric power to start TPN for nutrition suport -Continue IV antibiotics -Continue IV Protonix -Continue IV fluids -DVT prophylaxis subcu heparin Physician Financial Operations Clerk note has been reviewed by physician. Signing provider agrees with the documented findings, assessment, and plan of care. Objective - Vital Signs Vital signs: Vital Signs Temp 97.9 F 04/13/24 12:00 Pulse 70 04/13/24 12:00 Resp 21 04/13/24 12:00 BP 117/51 04/13/24 12:00 Pulse Ox 99 04/13/24 12:00 FiO2 40 04/13/24 12:00 Intake & Output 04/12/24 04/13/24 04/13/24 18:59 06:59 18:59 Intake Total 2298.5 3273.235 523.283 Output Total 1630 620 120 Balance 668.5 2653.235 403.283 Weight 61.6 kg 61.5 kg 61.5 kg Intake: IV 1845 2505 425 ACETAMINOPHEN IV (For NPO 800 ) 1,000 mg In Empty Bag 1 bag @ 400 mls/hr IVPB Q6HR [facility] Rx#:[id number] Fluconazole in NaCl,Iso- 50 Osm 100 mg In Saline 1 50ml.bag @ 50 mls/hr IVPB DAILY [facility] Rx#:[id number] Invasive Line 6 20 30 Lactated Ringers 1,000 ml 600 975 375 @ 75 mls/hr IV .[id number] [facility] Rx#:[id number] Piperacillin-Tazobactam 3 25 .375 gm In Sodium Chloride 0.9% 100 ml @ 25 mls/hr IVPB Q12H [facility] Rx# :[id number] Piperacillin-Tazobactam 3 200 .375 gm In Sodium Chloride 0.9% 100 ml @ 25 mls/hr IVPB Q8H [facility] Rx#: [id number] Sodium Chloride 0.9% 500 500 ml 500 ml @ 999 mls/hr IV .Q31M [facility] Rx#:[id number] Intake, IV Titration 453.5 768.235 98.283 Amount ACETAMINOPHEN IV (For NPO 400 ) 1,000 mg In Empty Bag 1 bag @ 400 mls/hr IVPB Q6HR [facility] Rx#:[id number] Amiodarone 450 mg In 250 Dextrose 5% in Water 250 ml @ 0.5 MG/MIN 16.667 mls/hr IV .Q15H [facility] Rx#: [id number] Amiodarone 450 mg In 218.893 Dextrose 5% in Water 250 ml @ 0.5 MG/MIN 16.667 mls/hr IV .Q15H [facility] Rx#: [id number] Diltiazem 125 mg In 103.5 Sodium Chloride 0.9% 100 ml @ 5 MG/HR 5 mls/hr IV .Q24H [facility] Rx#:[id number] Potassium Chloride 10 meq 100 100 In Water For Injection 1 100ml.bag @ 100 mls/hr IVPB Q1HR [facility] Rx#: [id number] propofoL 1,000 mg In 49.342 98.283 Empty Bag 1 bag @ 15 MCG/ KG/MIN 5.544 mls/hr IV . Q18H3M [facility] Rx#:[id number] Output: Gastric Drainage 30 Drainage 250 Lower Right Abdomen 140 Medial Abdomen 110 Urine 1525 370 120 Estimated Blood Loss 75 Other: Voiding Method Indwelling Catheter Indwelling Catheter Indwelling Catheter ABP, PAP, CO, CI - Last Documented Arterial Blood Pressure 90/59 - Labs CBC & Chem 7: 04/13/24 03:25 04/13/24 03:25 Labs: Abnormal Lab Results - Last 24 Hours (Table) 04/12/24 04/12/24 04/12/24 Range/Units 17:21 17:39 18:14 WBC 54.3 H* (3.8-10.6) k/uL RBC (3.80-5.40) m/uL Hgb (11.4-16.0) gm/dL Hct (34.0-46.0) % MCHC 30.4 L (31.0-37.0) g/dL Neutrophils # 50.6 H (1.3-7.7) k/uL Monocytes # 1.6 H (0-1.0) k/uL ABG pH 7.33 L (7.35-7.45) ABG pCO2 46 H (35-45) mmHg ABG pO2 148 H (83-108) mmHg ABG Total CO2 25 H (19-24) mmol/L ABG O2 Saturation 99.1 H (94-97) % Chloride (98-107) mmol/L Carbon Dioxide (22-30) mmol/L BUN (7-17) mg/dL Creatinine (0.52-1.04) mg/dL Glucose (74-99) mg/dL POC Glucose (mg/dL) 122 H (70-110) mg/dL Calcium (8.4-10.2) mg/dL 04/13/24 04/13/24 04/13/24 Range/Units 03:25 03:25 05:15 WBC 34.8 H (3.8-10.6) k/uL RBC 3.33 L (3.80-5.40) m/uL Hgb 9.5 L D (11.4-16.0) gm/dL Hct 32.2 L (34.0-46.0) % MCHC 29.5 L (31.0-37.0) g/dL Neutrophils # (1.3-7.7) k/uL Monocytes # (0-1.0) k/uL ABG pH (7.35-7.45) ABG pCO2 34 L (35-45) mmHg ABG pO2 128 H (83-108) mmHg ABG Total CO2 (19-24) mmol/L ABG O2 Saturation 99.3 H (94-97) % Chloride 114 H (98-107) mmol/L Carbon Dioxide 21 L (22-30) mmol/L BUN 48 H (7-17) mg/dL Creatinine 1.51 H (0.52-1.04) mg/dL Glucose 133 H (74-99) mg/dL POC Glucose (mg/dL) (70-110) mg/dL Calcium 7.0 L (8.4-10.2) mg/dL 04/13/24 Range/Units 11:57 WBC (3.8-10.6) k/uL RBC (3.80-5.40) m/uL Hgb (11.4-16.0) gm/dL Hct (34.0-46.0) % MCHC (31.0-37.0) g/dL Neutrophils # (1.3-7.7) k/uL Monocytes # (0-1.0) k/uL ABG pH (7.35-7.45) ABG pCO2 (35-45) mmHg ABG pO2 (83-108) mmHg ABG Total CO2 (19-24) mmol/L ABG O2 Saturation (94-97) % Chloride (98-107) mmol/L Carbon Dioxide (22-30) mmol/L BUN (7-17) mg/dL Creatinine (0.52-1.04) mg/dL Glucose (74-99) mg/dL POC Glucose (mg/dL) 139 H (70-110) mg/dL Calcium (8.4-10.2) mg/dL Microbiology - Last 24 Hours (Table) 04/12/24 16:05 Gram Stain - Preliminary Other - Other 04/08/24 23:00 Blood Culture - Preliminary Blood 04/08/24 22:45 Blood Culture - Preliminary Blood
[2024-04-13] MEDS: AMIODARONE 450 MG in DEXTROSE 5% IN WATER 250 ML IV SCH (14:07)
[2024-04-13] MEDS: FUROSEMIDE 10 MG/ML 4 ML VIAL IV STA (14:40)
[2024-04-13 14:56] LABS: Magnesium 1.4 mg/dL (1.6-2.3)
--- NOTE | 2024-04-13 15:49 | P.PN ---
Subjective This is an 88-year-old female patient who is somewhat poor historian who we are asked to see in the intensive care unit for further evaluation of atrial fibrillation with rapid ventricular response. The patient lives by herself. She has some underlying dementia. She was brought by her neighbor because she fell 2 days ago and has not been feeling well. She has been experiencing intermittent episodes of confusion and she was also having failure to thrive. Beside that she was feeling nauseated and experiencing intermittent episodes of abdominal discomfort. She underwent further investigation in the emergency department including an EKG showing sinus mechanism with nonspecific ST and T wave abnormalities and also she underwent a CT scan of the abdomen and that revealed perforated bowel. The patient underwent surgery yesterday and this is her postoperation day #1. No history of CAD or CHF or cardiac arrhythmia including atrial fibrillation the patient never seen by a confectionery cooker in the past according to her. The patient is extremely poor historian and she has difficulty hearing. Subsequently the patient was started on Cardizem IV and amiodarone IV and converted to normal sinus mechanism and has been maintaining normal sinus mechanism with heart rate in the 50s as well as the 60s. Currently she is not on any IV heparin or anticoagulation. We are going to find out from the surgical team when it is safe to start the patient on IV heparin at this point. Apparently she is n.p.o. and cannot take any oral medication and for that reason she is on the IV AV georgie harvinder agents. An echocardiogram was ordered and still pending. Further investigation also was performed including creatinine came to be at 2.5 but the patient has not been able to urinate and there is a component of obstructive uropathy and currently urology service is on the case to place a Walters catheter. Beside that her hemoglobin has been around 10.5. The examination is remarkable for regular rhythm with distant heart sounds and systolic murmur at the right upper sternal border with diminished breathing sounds bilaterally and no edema was noted in the lower extremities 04/12 patient seen and examined. Patient's creatinine has improved to 1.2. She denies any chest pain or pressure. Denies any significant shortness breath. Has some vague abdominal pain. Concern of continued leak from upper GI study. Echocardiogram performed which shows preserved EF without significant valvular disease. Has been on IV amiodarone as well as IV Cardizem drip secondary to patient being nothing by mouth. 04/13 Seen and examined. Remains intubated and sedated. Recievieng TPN, NPO on amio and Cardizem drip. Hgb dropped however may be dilutional. Did have decreased urine outpt and therefore was given dose of Lasix. PHYSICAL EXAMINATION Vital signs reviewed. CONSTITUTIONAL: No apparent distress. HEENT: Head is normocephalic. Pupils are equal, round. Sclerae anicteric. Mucous membranes of the mouth are moist. No JVD. No carotid bruit. CHEST EXAMINATION: Lungs are clear to auscultation. No chest wall tenderness is noted on palpation or with deep breathing. HEART EXAMINATION: Regular rate and rhythm. S1, S2 heard. No murmurs, gallops or rub. ABDOMEN: Soft, nontender. Positive bowel sounds. EXTREMITIES: 2+ peripheral pulses, no lower extremity edema and no calf tenderness. NEUROLOGIC EXAMINATION: Patient is awake, alert and oriented x3. Assessment Status post abdominal surgery, perforated bowel with continued bowel leak Parosyxmal atrial fibrillation new onset. Currently the patient is in sinus mechanism. Obstructive uropathy JESÚS, improving Multiple comorbid conditions Anemia with drop in hgb Plan Continue with amiodarone IV however dc IV Cardizem drip given she is in normal rhythm. Not a good anticoagulation candidate currently with concern of continued leak and decrease in Hgb. Echo showing preserved EF. Continue her current supportive care Check CVP given decreased urine outpt and recieving IVF and Lasix. Further recommendations to follow. Objective - Vital Signs Vital signs: Vital Signs Temp 97.9 F 04/13/24 12:00 Pulse 72 04/13/24 15:35 Resp 20 04/13/24 15:00 BP 92/47 04/13/24 15:00 Pulse Ox 100 04/13/24 15:00 FiO2 40 04/13/24 15:06 Intake & Output 04/12/24 04/13/24 04/13/24 18:59 06:59 18:59 Intake Total 2298.5 3273.235 859.063 Output Total 1630 620 185 Balance 668.5 2653.235 674.063 Weight 61.6 kg 61.5 kg 61.5 kg Intake: IV 1845 2505 750 ACETAMINOPHEN IV (For NPO 800 ) 1,000 mg In Empty Bag 1 bag @ 400 mls/hr IVPB Q6HR [facility] Rx#:[id number] Fluconazole in NaCl,Iso- 50 Osm 100 mg In Saline 1 50ml.bag @ 50 mls/hr IVPB DAILY [facility] Rx#:[id number] Invasive Line 6 20 30 Lactated Ringers 1,000 ml 600 975 600 @ 75 mls/hr IV .[id number] [facility] Rx#:[id number] Piperacillin-Tazobactam 3 25 .375 gm In Sodium Chloride 0.9% 100 ml @ 25 mls/hr IVPB Q12H [facility] Rx# :[id number] Piperacillin-Tazobactam 3 200 100 .375 gm In Sodium Chloride 0.9% 100 ml @ 25 mls/hr IVPB Q8H [facility] Rx#: [id number] Sodium Chloride 0.9% 500 500 ml 500 ml @ 999 mls/hr IV .Q31M [facility] Rx#:[id number] Intake, IV Titration 453.5 768.235 109.063 Amount ACETAMINOPHEN IV (For NPO 400 ) 1,000 mg In Empty Bag 1 bag @ 400 mls/hr IVPB Q6HR [facility] Rx#:[id number] Amiodarone 450 mg In 250 Dextrose 5% in Water 250 ml @ 0.5 MG/MIN 16.667 mls/hr IV .Q15H [facility] Rx#: [id number] Amiodarone 450 mg In 218.893 Dextrose 5% in Water 250 ml @ 0.5 MG/MIN 16.667 mls/hr IV .Q15H [facility] Rx#: [id number] Diltiazem 125 mg In 103.5 Sodium Chloride 0.9% 100 ml @ 5 MG/HR 5 mls/hr IV .Q24H [facility] Rx#:[id number] Potassium Chloride 10 meq 100 100 In Water For Injection 1 100ml.bag @ 100 mls/hr IVPB Q1HR [facility] Rx#: [id number] propofoL 1,000 mg In 49.342 109.063 Empty Bag 1 bag @ 15 MCG/ KG/MIN 5.544 mls/hr IV . Q18H3M [facility] Rx#:[id number] Output: Gastric Drainage 30 Drainage 250 Lower Right Abdomen 140 Medial Abdomen 110 Urine 1525 370 185 Estimated Blood Loss 75 Other: Voiding Method Indwelling Catheter Indwelling Catheter Indwelling Catheter ABP, PAP, CO, CI - Last Documented Arterial Blood Pressure 90/59 - Labs CBC & Chem 7: 04/13/24 03:25 04/13/24 03:25 Labs: Abnormal Lab Results - Last 24 Hours (Table) 04/12/24 04/12/24 04/12/24 Range/Units 17:21 17:39 18:14 WBC 54.3 H* (3.8-10.6) k/uL RBC (3.80-5.40) m/uL Hgb (11.4-16.0) gm/dL Hct (34.0-46.0) % MCHC 30.4 L (31.0-37.0) g/dL Neutrophils # 50.6 H (1.3-7.7) k/uL Monocytes # 1.6 H (0-1.0) k/uL ABG pH 7.33 L (7.35-7.45) ABG pCO2 46 H (35-45) mmHg ABG pO2 148 H (83-108) mmHg ABG Total CO2 25 H (19-24) mmol/L ABG O2 Saturation 99.1 H (94-97) % Chloride (98-107) mmol/L Carbon Dioxide (22-30) mmol/L BUN (7-17) mg/dL Creatinine (0.52-1.04) mg/dL Glucose (74-99) mg/dL POC Glucose (mg/dL) 122 H (70-110) mg/dL Calcium (8.4-10.2) mg/dL Phosphorus (2.5-4.5) mg/dL Magnesium (1.6-2.3) mg/dL 04/13/24 04/13/24 04/13/24 Range/Units 03:25 03:25 03:25 WBC 34.8 H (3.8-10.6) k/uL RBC 3.33 L (3.80-5.40) m/uL Hgb 9.5 L D (11.4-16.0) gm/dL Hct 32.2 L (34.0-46.0) % MCHC 29.5 L (31.0-37.0) g/dL Neutrophils # (1.3-7.7) k/uL Monocytes # (0-1.0) k/uL ABG pH (7.35-7.45) ABG pCO2 (35-45) mmHg ABG pO2 (83-108) mmHg ABG Total CO2 (19-24) mmol/L ABG O2 Saturation (94-97) % Chloride 114 H (98-107) mmol/L Carbon Dioxide 21 L (22-30) mmol/L BUN 48 H (7-17) mg/dL Creatinine 1.51 H (0.52-1.04) mg/dL Glucose 133 H (74-99) mg/dL POC Glucose (mg/dL) (70-110) mg/dL Calcium 7.0 L (8.4-10.2) mg/dL Phosphorus 5.0 H (2.5-4.5) mg/dL Magnesium 1.4 L (1.6-2.3) mg/dL 04/13/24 04/13/24 Range/Units 05:15 11:57 WBC (3.8-10.6) k/uL RBC (3.80-5.40) m/uL Hgb (11.4-16.0) gm/dL Hct (34.0-46.0) % MCHC (31.0-37.0) g/dL Neutrophils # (1.3-7.7) k/uL Monocytes # (0-1.0) k/uL ABG pH (7.35-7.45) ABG pCO2 34 L (35-45) mmHg ABG pO2 128 H (83-108) mmHg ABG Total CO2 (19-24) mmol/L ABG O2 Saturation 99.3 H (94-97) % Chloride (98-107) mmol/L Carbon Dioxide (22-30) mmol/L BUN (7-17) mg/dL Creatinine (0.52-1.04) mg/dL Glucose (74-99) mg/dL POC Glucose (mg/dL) 139 H (70-110) mg/dL Calcium (8.4-10.2) mg/dL Phosphorus (2.5-4.5) mg/dL Magnesium (1.6-2.3) mg/dL Microbiology - Last 24 Hours (Table) 04/12/24 16:05 Gram Stain - Preliminary Other - Other 04/08/24 23:00 Blood Culture - Preliminary Blood 04/08/24 22:45 Blood Culture - Preliminary Blood
[2024-04-13] MEDS: [UNRECOGNIZED DRUG - OTHER] IV SCH (16:44)
[2024-04-13] MEDS: POTASSIUM ACETATE IV SCH (16:44)
[2024-04-13] MEDS: MAGNESIUM SULFATE IV SCH (16:44)
[2024-04-13] MEDS: SODIUM ACETATE IV SCH (16:44)
--- NOTE | 2024-04-13 16:48 | P.PN ---
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 Patient white count is slightly down to 34.8 today, creatinine is 1.51 abdominal cultures pending Objective - Vital Signs Vital signs: Vital Signs Temp 97.9 F 04/13/24 12:00 Pulse 72 04/13/24 15:35 Resp 20 04/13/24 15:00 BP 92/47 04/13/24 15:00 Pulse Ox 100 04/13/24 15:00 FiO2 40 04/13/24 15:06 Intake & Output 04/12/24 04/13/24 04/13/24 18:59 06:59 18:59 Intake Total 2298.5 3273.235 859.063 Output Total 1630 620 185 Balance 668.5 2653.235 674.063 Weight 61.6 kg 61.5 kg 61.5 kg Intake: IV 1845 2505 750 ACETAMINOPHEN IV (For NPO 800 ) 1,000 mg In Empty Bag 1 bag @ 400 mls/hr IVPB Q6HR [facility] Rx#:[id number] Fluconazole in NaCl,Iso- 50 Osm 100 mg In Saline 1 50ml.bag @ 50 mls/hr IVPB DAILY [facility] Rx#:[id number] Invasive Line 6 20 30 Lactated Ringers 1,000 ml 600 975 600 @ 75 mls/hr IV .[id number] [facility] Rx#:[id number] Piperacillin-Tazobactam 3 25 .375 gm In Sodium Chloride 0.9% 100 ml @ 25 mls/hr IVPB Q12H [facility] Rx# :[id number] Piperacillin-Tazobactam 3 200 100 .375 gm In Sodium Chloride 0.9% 100 ml @ 25 mls/hr IVPB Q8H [facility] Rx#: [id number] Sodium Chloride 0.9% 500 500 ml 500 ml @ 999 mls/hr IV .Q31M [facility] Rx#:[id number] Intake, IV Titration 453.5 768.235 109.063 Amount ACETAMINOPHEN IV (For NPO 400 ) 1,000 mg In Empty Bag 1 bag @ 400 mls/hr IVPB Q6HR [facility] Rx#:[id number] Amiodarone 450 mg In 250 Dextrose 5% in Water 250 ml @ 0.5 MG/MIN 16.667 mls/hr IV .Q15H [facility] Rx#: [id number] Amiodarone 450 mg In 218.893 Dextrose 5% in Water 250 ml @ 0.5 MG/MIN 16.667 mls/hr IV .Q15H [facility] Rx#: [id number] Diltiazem 125 mg In 103.5 Sodium Chloride 0.9% 100 ml @ 5 MG/HR 5 mls/hr IV .Q24H [facility] Rx#:[id number] Potassium Chloride 10 meq 100 100 In Water For Injection 1 100ml.bag @ 100 mls/hr IVPB Q1HR [facility] Rx#: [id number] propofoL 1,000 mg In 49.342 109.063 Empty Bag 1 bag @ 15 MCG/ KG/MIN 5.544 mls/hr IV . Q18H3M [facility] Rx#:[id number] Output: Gastric Drainage 30 Drainage 250 Lower Right Abdomen 140 Medial Abdomen 110 Urine 1525 370 185 Estimated Blood Loss 75 Other: Voiding Method Indwelling Catheter Indwelling Catheter Indwelling Catheter ABP, PAP, CO, CI - Last Documented Arterial Blood Pressure 90/59 - Exam GENERAL DESCRIPTION: An elderly female intubated on the vent RESPIRATORY SYSTEM: Unlabored breathing , decreased breath sounds at bases HEART: S1 S2 regular rate and rhythm , ABDOMEN: Soft , mild tenderness EXTREMITIES: No edema feet - Labs CBC & Chem 7: 04/13/24 03:25 04/13/24 03:25 Labs: Abnormal Lab Results - Last 24 Hours (Table) 04/12/24 04/12/24 04/12/24 Range/Units 17:21 17:39 18:14 WBC 54.3 H* (3.8-10.6) k/uL RBC (3.80-5.40) m/uL Hgb (11.4-16.0) gm/dL Hct (34.0-46.0) % MCHC 30.4 L (31.0-37.0) g/dL Neutrophils # 50.6 H (1.3-7.7) k/uL Monocytes # 1.6 H (0-1.0) k/uL ABG pH 7.33 L (7.35-7.45) ABG pCO2 46 H (35-45) mmHg ABG pO2 148 H (83-108) mmHg ABG Total CO2 25 H (19-24) mmol/L ABG O2 Saturation 99.1 H (94-97) % Chloride (98-107) mmol/L Carbon Dioxide (22-30) mmol/L BUN (7-17) mg/dL Creatinine (0.52-1.04) mg/dL Glucose (74-99) mg/dL POC Glucose (mg/dL) 122 H (70-110) mg/dL Calcium (8.4-10.2) mg/dL Phosphorus (2.5-4.5) mg/dL Magnesium (1.6-2.3) mg/dL 04/13/24 04/13/24 04/13/24 Range/Units 03:25 03:25 03:25 WBC 34.8 H (3.8-10.6) k/uL RBC 3.33 L (3.80-5.40) m/uL Hgb 9.5 L D (11.4-16.0) gm/dL Hct 32.2 L (34.0-46.0) % MCHC 29.5 L (31.0-37.0) g/dL Neutrophils # (1.3-7.7) k/uL Monocytes # (0-1.0) k/uL ABG pH (7.35-7.45) ABG pCO2 (35-45) mmHg ABG pO2 (83-108) mmHg ABG Total CO2 (19-24) mmol/L ABG O2 Saturation (94-97) % Chloride 114 H (98-107) mmol/L Carbon Dioxide 21 L (22-30) mmol/L BUN 48 H (7-17) mg/dL Creatinine 1.51 H (0.52-1.04) mg/dL Glucose 133 H (74-99) mg/dL POC Glucose (mg/dL) (70-110) mg/dL Calcium 7.0 L (8.4-10.2) mg/dL Phosphorus 5.0 H (2.5-4.5) mg/dL Magnesium 1.4 L (1.6-2.3) mg/dL 04/13/24 04/13/24 Range/Units 05:15 11:57 WBC (3.8-10.6) k/uL RBC (3.80-5.40) m/uL Hgb (11.4-16.0) gm/dL Hct (34.0-46.0) % MCHC (31.0-37.0) g/dL Neutrophils # (1.3-7.7) k/uL Monocytes # (0-1.0) k/uL ABG pH (7.35-7.45) ABG pCO2 34 L (35-45) mmHg ABG pO2 128 H (83-108) mmHg ABG Total CO2 (19-24) mmol/L ABG O2 Saturation 99.3 H (94-97) % Chloride (98-107) mmol/L Carbon Dioxide (22-30) mmol/L BUN (7-17) mg/dL Creatinine (0.52-1.04) mg/dL Glucose (74-99) mg/dL POC Glucose (mg/dL) 139 H (70-110) mg/dL Calcium (8.4-10.2) mg/dL Phosphorus (2.5-4.5) mg/dL Magnesium (1.6-2.3) mg/dL Microbiology - Last 24 Hours (Table) 04/12/24 16:05 Gram Stain - Preliminary Other - Other 04/08/24 23:00 Blood Culture - Preliminary Blood 04/08/24 22:45 Blood Culture - Preliminary Blood Assessment and Plan (1) Peritonitis Current Visit: Yes Status: Acute Code(s): K65.9 - PERITONITIS, UNSPECIFIED SNOMED Code(s): 38417295 (2) Leukocytosis Current Visit: Yes Status: Acute Code(s): D72.829 - ELEVATED WHITE BLOOD CELL COUNT, UNSPECIFIED SNOMED Code(s): 807205981 (3) Perforated duodenal ulcer Current Visit: Yes Status: Acute Code(s): K26.5 - CHRONIC OR UNSPECIFIED DUODENAL ULCER WITH PERFORATION SNOMED Code(s): 22084412 Plan: 1patient presented to hospital with abdominal pain constipation has been diagnosed with the pneumoperitoneum secondary to perforated duodenal ulcer status post laparotomy and repair of the perforated jejunal ulcer we will need to cover for gram-negative and yeast. 2patient upper GI that is suspicious for leak patient is status post reexploration with Billroth II gastrectomy with Myles-en-Y reconstruction along with abdominal cultures which are currently pending 3-patient to continue with the Zosyn and Diflucan and monitor clinical course closely Dictation was produced using [employer] dictation software. please excuse any grammatical, word or spelling errors.
[2024-04-13 17:51] LABS: Glucose,Whole Blood 139 mg/dL (70-110)
[2024-04-13 23:26] LABS: Glucose,Whole Blood 170 mg/dL (70-110)
[2024-04-14 06:18] LABS: ABG Base Excess 0.5 mmol/L; ABG HCO3 24 mmol/L (21-25); ABG Oxygen Saturation 99.8 % (94-97); ABG PCO2 33 mmHg (35-45); ABG PH 7.47 (7.35-7.45); ABG PO2 148 mmHg (83-108); ABG TCO2 25 mmol/L (19-24); Allen Test Performed? Yes
[2024-04-14 06:24] LABS: HCT 31.5 % (34.0-46.0); HGB 9.5 gm/dL (11.4-16.0); Hypochromasia Moderate; MCH 29.2 pg (25.0-35.0); MCHC 30.3 g/dL (31.0-37.0); MCV 96.6 fL (80.0-100.0); Mean Platelet Volume 9.1; Platelet Count 362 k/uL (150-450); RBC 3.27 m/uL (3.80-5.40); RDW 13.9 % (11.5-15.5); WBC 25.2 k/uL (3.8-10.6)
[2024-04-14 06:26] LABS: Ionized Calcium 4.2 mg/dL (4.5-5.3)
[2024-04-14 06:33] LABS: Magnesium 1.6 mg/dL (1.6-2.3); Phosphorus 3.6 mg/dL (2.5-4.5)
[2024-04-14] MEDS: MAGNESIUM SULFATE-D5W PMX 1 GM in DEXTROSE/WATER 1 100ML.BAG IVPB SCH (06:50)
[2024-04-14 07:11] LABS: ALT 21 U/L (4-34); AST 21 U/L (14-36); African American GFR (CKD) 28 (>60 ml/min/1.73 sqM); Albumin 1.9 g/dL (3.5-5.0); Alkaline Phosphatase 83 U/L (38-126); Anion Gap 5 mmol/L; Blood Urea Nitrogen 50 mg/dL (7-17); Calcium 6.8 mg/dL (8.4-10.2); Carbon Dioxide 25 mmol/L (22-30); Chloride 112 mmol/L (98-107); Glucose 191 mg/dL (74-99); Non-African American GFR(CKD) 24 (>60 ml/min/1.73 sqM); Potassium 3.3 mmol/L (3.5-5.1); Sodium 142 mmol/L (137-145); Total Bilirubin 0.4 mg/dL (0.2-1.3)
[2024-04-14] MEDS ORDERED: Potassium Replacement Protocol 1 EACH MISC MISCELLANE PRN (07:53)
[2024-04-14] MEDS: POTASSIUM CHLORIDE 20 MEQ in WATER FOR INJECTION 1 100ML.BAG IVPB SCH (08:24)
--- NOTE | 2024-04-14 08:31 | P.PN ---
Subjective Principal diagnosis: The patient is admitted for repair after perforated duodenal ulcer. The patient did have some backsliding and had to be intubated after having central line. Now intubated but high expectation for extubation today. Objective - Vital Signs Vital signs: Vital Signs Temp 98.8 F 04/14/24 04:00 Pulse 68 04/14/24 07:00 Resp 22 04/14/24 07:00 BP 124/50 04/14/24 07:00 Pulse Ox 97 04/14/24 07:00 FiO2 30 04/14/24 08:13 Intake & Output 04/13/24 04/14/24 04/14/24 18:59 06:59 18:59 Intake Total 2570.072 9907.682 178 Output Total 605 895 Balance 482.063 472.682 178 Weight 61.5 kg 65.1 kg Intake: IV 978 1036 178 Fluconazole in NaCl,Iso- 50 Osm 100 mg In Saline 1 50ml.bag @ 50 mls/hr IVPB DAILY [facility] Rx#:[id number] Lactated Ringers 1,000 ml 825 900 75 @ 75 mls/hr IV .[id number] [facility] Rx#:[id number] Magnesium Sulfate-D5w Pmx 100 1 gm In Dextrose/Water 1 100ml.bag @ 100 mls/hr IVPB Q1H [facility] Rx#: [id number] Piperacillin-Tazobactam 3 100 100 .375 gm In Sodium Chloride 0.9% 100 ml @ 25 mls/hr IVPB Q8H [facility] Rx#: [id number] Pressure Bag (0.9 Sodium 3 36 3 Chl) Intake, IV Titration 109.063 331.682 Amount Amiodarone 450 mg In 250 Dextrose 5% in Water 250 ml @ 0.5 MG/MIN 16.667 mls/hr IV .Q15H [facility] Rx#: [id number] propofoL 1,000 mg In 109.063 Empty Bag 1 bag @ 15 MCG/ KG/MIN 5.544 mls/hr IV . Q18H3M [facility] Rx#:[id number] propofoL 1,000 mg In 81.682 Empty Bag 1 bag @ 15 MCG/ KG/MIN 5.544 mls/hr IV . Q18H3M [facility] Rx#:[id number] Output: Drainage 110 120 Lower Right Abdomen 40 40 Medial Abdomen 70 80 Urine 495 775 Other: Voiding Method Indwelling Catheter Indwelling Catheter ABP, PAP, CO, CI - Last Documented Arterial Blood Pressure 90/59 - Constitutional General appearance: Present: average body habitus - Respiratory Respiratory: bilateral: diminished - Cardiovascular Rhythm: regular Heart sounds: normal: S1, S2 Abnormal Heart Sounds: Absent: S3 Gallop - Gastrointestinal General gastrointestinal: Present: soft. Absent: tenderness - Psychiatric Psychiatric: Absent: A&O x's 3 - Labs CBC & Chem 7: 04/14/24 05:59 04/14/24 05:59 Labs: Abnormal Lab Results - Last 24 Hours (Table) 04/13/24 04/13/24 04/13/24 Range/Units 03:25 11:57 17:49 WBC (3.8-10.6) k/uL RBC (3.80-5.40) m/uL Hgb (11.4-16.0) gm/dL Hct (34.0-46.0) % MCHC (31.0-37.0) g/dL ABG pH (7.35-7.45) ABG pCO2 (35-45) mmHg ABG pO2 (83-108) mmHg ABG Total CO2 (19-24) mmol/L ABG O2 Saturation (94-97) % Potassium (3.5-5.1) mmol/L Chloride (98-107) mmol/L BUN (7-17) mg/dL Creatinine (0.52-1.04) mg/dL Glucose (74-99) mg/dL POC Glucose (mg/dL) 139 H 139 H (70-110) mg/dL Calcium (8.4-10.2) mg/dL Ionized Calcium Ulises (4.5-5.3) mg/dL Phosphorus 5.0 H (2.5-4.5) mg/dL Magnesium 1.4 L (1.6-2.3) mg/dL Total Protein (6.3-8.2) g/dL Albumin (3.5-5.0) g/dL 04/13/24 04/14/24 04/14/24 Range/Units 23:24 05:59 05:59 WBC 25.2 H (3.8-10.6) k/uL RBC 3.27 L (3.80-5.40) m/uL Hgb 9.5 L (11.4-16.0) gm/dL Hct 31.5 L (34.0-46.0) % MCHC 30.3 L (31.0-37.0) g/dL ABG pH (7.35-7.45) ABG pCO2 (35-45) mmHg ABG pO2 (83-108) mmHg ABG Total CO2 (19-24) mmol/L ABG O2 Saturation (94-97) % Potassium 3.3 L (3.5-5.1) mmol/L Chloride 112 H (98-107) mmol/L BUN 50 H (7-17) mg/dL Creatinine 1.83 H (0.52-1.04) mg/dL Glucose 191 H (74-99) mg/dL POC Glucose (mg/dL) 170 H (70-110) mg/dL Calcium 6.8 L (8.4-10.2) mg/dL Ionized Calcium Ulises 4.2 L (4.5-5.3) mg/dL Phosphorus (2.5-4.5) mg/dL Magnesium (1.6-2.3) mg/dL Total Protein 4.0 L (6.3-8.2) g/dL Albumin 1.9 L (3.5-5.0) g/dL 04/14/24 Range/Units 06:16 WBC (3.8-10.6) k/uL RBC (3.80-5.40) m/uL Hgb (11.4-16.0) gm/dL Hct (34.0-46.0) % MCHC (31.0-37.0) g/dL ABG pH 7.47 H (7.35-7.45) ABG pCO2 33 L (35-45) mmHg ABG pO2 148 H (83-108) mmHg ABG Total CO2 25 H (19-24) mmol/L ABG O2 Saturation 99.8 H (94-97) % Potassium (3.5-5.1) mmol/L Chloride (98-107) mmol/L BUN (7-17) mg/dL Creatinine (0.52-1.04) mg/dL Glucose (74-99) mg/dL POC Glucose (mg/dL) (70-110) mg/dL Calcium (8.4-10.2) mg/dL Ionized Calcium Ulises (4.5-5.3) mg/dL Phosphorus (2.5-4.5) mg/dL Magnesium (1.6-2.3) mg/dL Total Protein (6.3-8.2) g/dL Albumin (3.5-5.0) g/dL Microbiology - Last 24 Hours (Table) 04/12/24 16:05 Gram Stain - Preliminary Other - Other Assessment and Plan (1) Dehydration Current Visit: Yes Status: Acute Code(s): E86.0 - DEHYDRATION SNOMED Code(s): 63151894 (2) Perforated duodenal ulcer Current Visit: Yes Status: Acute Code(s): K26.5 - CHRONIC OR UNSPECIFIED DUODENAL ULCER WITH PERFORATION SNOMED Code(s): 72551418 (3) Peritonitis Current Visit: Yes Status: Acute Code(s): K65.9 - PERITONITIS, UNSPECIFIED SNOMED Code(s): 74934191 (4) Fall Current Visit: No Status: Acute Code(s): W19.XXXA - UNSPECIFIED FALL, INITIAL ENCOUNTER SNOMED Code(s): 0341808 (5) Ribs, multiple fractures Current Visit: No Status: Acute Code(s): S22.49XA - MULTIPLE FRACTURES OF RIBS, UNSP SIDE, INIT FOR CLOS FX SNOMED Code(s): 1790205 Plan: Continue current regimen of treatment. Slowly healing from peritonitis from duodenal ulcer perforation. Check appropriate laboratories per ICU protocol CBC CMP. Hopeful of extubation today. Will continue to follow. Time with Patient: Less than 30
[2024-04-14] MEDS ORDERED: DEXTROSE 50% SYRINGE 50 ML IVP PRN ×2 (09:59)
[2024-04-14] MEDS: CALCIUM GLUCONATE IN NACL 1 GM in SALINE 1 100ML.BAG IVPB ONE (10:02)
--- NOTE | 2024-04-14 10:56 | P.PN ---
Subjective Patient is seen for follow-up for acute kidney injury. Patient was taken back to the OR 04/12/2024for a leak around the Lee patch. Patient is currently on the vent. urine output at 30-50 mL an hour. Patient is maintained on IV fluids. She is also started on TPN maintained on amiodarone drip for A. fib with RVR Objective - Vital Signs Vital signs: Vital Signs Temp 97 F L 04/14/24 08:00 Pulse 65 04/14/24 09:02 Resp 16 04/14/24 09:00 BP 106/46 04/14/24 09:00 Pulse Ox 98 04/14/24 09:00 FiO2 30 04/14/24 09:51 Intake & Output 04/13/24 04/14/24 04/14/24 18:59 06:59 18:59 Intake Total 5557.430 0409.682 741.704 Output Total 605 895 80 Balance 482.063 472.682 661.704 Weight 61.5 kg 65.1 kg Intake: IV 978 1036 478 Fluconazole in NaCl,Iso- 50 50 Osm 100 mg In Saline 1 50ml.bag @ 50 mls/hr IVPB DAILY [facility] Rx#:[id number] Lactated Ringers 1,000 ml 825 900 225 @ 75 mls/hr IV .[id number] [facility] Rx#:[id number] Magnesium Sulfate-D5w Pmx 200 1 gm In Dextrose/Water 1 100ml.bag @ 100 mls/hr IVPB Q1H [facility] Rx#: [id number] Piperacillin-Tazobactam 3 100 100 .375 gm In Sodium Chloride 0.9% 100 ml @ 25 mls/hr IVPB Q8H [facility] Rx#: [id number] Pressure Bag (0.9 Sodium 3 36 3 Chl) Intake, IV Titration 109.063 331.682 263.704 Amount Amiodarone 450 mg In 250 Dextrose 5% in Water 250 ml @ 0.5 MG/MIN 16.667 mls/hr IV .Q15H [facility] Rx#: [id number] Potassium Chloride 20 meq 100 In Water For Injection 1 100ml.bag @ 50 mls/hr IVPB Q2H [facility] Rx#: [id number] Sodium Acetate 30 meq 60 Potassium Acetate 20 meq Magnesium Sulfate gm 1 gm Calcium Gluconate 1 gm Mvi, Adult No.4 with Vit K 10 ml Trace (Conc-1Ml/ Dose) 1 ml In Amino Acid 5%-D15w 1,000 ml @ 30 mls /hr IV .Q24H [facility] Rx#: [id number] propofoL 1,000 mg In 109.063 Empty Bag 1 bag @ 15 MCG/ KG/MIN 5.544 mls/hr IV . Q18H3M [facility] Rx#:[id number] propofoL 1,000 mg In 81.682 103.704 Empty Bag 1 bag @ 15 MCG/ KG/MIN 5.544 mls/hr IV . Q18H3M [facility] Rx#:[id number] Output: Drainage 110 120 Lower Right Abdomen 40 40 Medial Abdomen 70 80 Urine 495 775 80 Other: Voiding Method Indwelling Catheter Indwelling Catheter ABP, PAP, CO, CI - Last Documented Arterial Blood Pressure 90/59 - Exam patient is sedated and on the vent Examination of the heart S1 and S2 Examination of the lungs decreased breath sounds at the bases Abdomen is soft Examination lower extremity shows 1+ edema - Labs CBC & Chem 7: 04/14/24 05:59 04/14/24 05:59 Labs: Abnormal Lab Results - Last 24 Hours (Table) 04/13/24 04/13/24 04/13/24 Range/Units 03:25 11:57 17:49 WBC (3.8-10.6) k/uL RBC (3.80-5.40) m/uL Hgb (11.4-16.0) gm/dL Hct (34.0-46.0) % MCHC (31.0-37.0) g/dL ABG pH (7.35-7.45) ABG pCO2 (35-45) mmHg ABG pO2 (83-108) mmHg ABG Total CO2 (19-24) mmol/L ABG O2 Saturation (94-97) % Potassium (3.5-5.1) mmol/L Chloride (98-107) mmol/L BUN (7-17) mg/dL Creatinine (0.52-1.04) mg/dL Glucose (74-99) mg/dL POC Glucose (mg/dL) 139 H 139 H (70-110) mg/dL Calcium (8.4-10.2) mg/dL Ionized Calcium Ulises (4.5-5.3) mg/dL Phosphorus 5.0 H (2.5-4.5) mg/dL Magnesium 1.4 L (1.6-2.3) mg/dL Total Protein (6.3-8.2) g/dL Albumin (3.5-5.0) g/dL 04/13/24 04/14/24 04/14/24 Range/Units 23:24 05:59 05:59 WBC 25.2 H (3.8-10.6) k/uL RBC 3.27 L (3.80-5.40) m/uL Hgb 9.5 L (11.4-16.0) gm/dL Hct 31.5 L (34.0-46.0) % MCHC 30.3 L (31.0-37.0) g/dL ABG pH (7.35-7.45) ABG pCO2 (35-45) mmHg ABG pO2 (83-108) mmHg ABG Total CO2 (19-24) mmol/L ABG O2 Saturation (94-97) % Potassium 3.3 L (3.5-5.1) mmol/L Chloride 112 H (98-107) mmol/L BUN 50 H (7-17) mg/dL Creatinine 1.83 H (0.52-1.04) mg/dL Glucose 191 H (74-99) mg/dL POC Glucose (mg/dL) 170 H (70-110) mg/dL Calcium 6.8 L (8.4-10.2) mg/dL Ionized Calcium Ulises 4.2 L (4.5-5.3) mg/dL Phosphorus (2.5-4.5) mg/dL Magnesium (1.6-2.3) mg/dL Total Protein 4.0 L (6.3-8.2) g/dL Albumin 1.9 L (3.5-5.0) g/dL 04/14/24 Range/Units 06:16 WBC (3.8-10.6) k/uL RBC (3.80-5.40) m/uL Hgb (11.4-16.0) gm/dL Hct (34.0-46.0) % MCHC (31.0-37.0) g/dL ABG pH 7.47 H (7.35-7.45) ABG pCO2 33 L (35-45) mmHg ABG pO2 148 H (83-108) mmHg ABG Total CO2 25 H (19-24) mmol/L ABG O2 Saturation 99.8 H (94-97) % Potassium (3.5-5.1) mmol/L Chloride (98-107) mmol/L BUN (7-17) mg/dL Creatinine (0.52-1.04) mg/dL Glucose (74-99) mg/dL POC Glucose (mg/dL) (70-110) mg/dL Calcium (8.4-10.2) mg/dL Ionized Calcium Ulises (4.5-5.3) mg/dL Phosphorus (2.5-4.5) mg/dL Magnesium (1.6-2.3) mg/dL Total Protein (6.3-8.2) g/dL Albumin (3.5-5.0) g/dL Microbiology - Last 24 Hours (Table) 04/12/24 16:05 Gram Stain - Preliminary Other - Other Assessment and Plan Assessment: 1. Acute kidney injury, ATN currently nonoliguric. UA is quite benign. No evidence of obstruction on CT of the abdomen. Walters catheter has been obstruc clari previously. This has been flushed. 2. Non-gap metabolic acidosis secondary to acute kidney injury. 3. Perforated duodenal ulcer status post explorative laparotomy with lee patch on 04/09/2024. Patient had reexploration for leak around the Lee patch on 04/12/2024 with Myles-en-Y reconstruction and Billroth II gastrectomy 4. Status post fall with rib fractures 5. A. fib with RVR maintained on amiodarone drip Plan: can discontinue LR once TPN is further increased. Flush Walters catheter Repeat labs in a.m.
--- NOTE | 2024-04-14 11:01 | XR ---
EXAMINATION TYPE: XR chest 1V portable DATE OF EXAM: 04/14/2024 5:27 AM CLINICAL INDICATION:Female, 88 years old with history of Tube placement; [facility] COMPARISON: Chest radiograph from one day prior. TECHNIQUE: XR chest 1V portable Frontal view of the chest. FINDINGS: Lungs/Pleura: Blunting of the right costophrenic angle. There is no evidence of left pleural effusion . Pleural effusion, focal consolidation, or pneumothorax. Pulmonary vascularity: Unremarkable. Heart/mediastinum: Cardiomediastinal silhouette is unremarkable. Musculoskeletal: No acute osseous pathology. Nasogastric tube with tip terminating under the diaphragm and side-port projecting over the distal es ophagus.. Right central venous catheter tip terminating at the superior vena cava Endotracheal tube terminating above the jose measuring 5.3 cm. IMPRESSION: 1. Persistent retraction of nasogastric tube now with side-port projecting over the distal esophagus . Consider advancement of 9 cm for optimal placement. 2. Endotracheal tube above the jose. 3. Right Central venous catheter tip in appropriate position. 4. Similar blunting of the costophrenic angle suggesting pleural effusion
--- NOTE | 2024-04-14 11:53 | P.PN ---
Subjective Progress Note Date: 04/14/24 Principal diagnosis: Perforated viscus. This is an 88-year-old female, recent history of fall about 2 weeks ago, sustained bruising to her left ribs. Patient was brought in yesterday to the ER mostly with symptoms of weakness, failure to thrive, poor oral intake, and suspected dehydration. Patient was also complaining of cough and shortness of breath, no fever no chills, no nausea no vomiting. In addition the patient had no bowel movement for the last 4 days. Apparently the patient has been experiencing intermittent episodes of confusion for the last 1 year. Workup in the ER included a CT of the abdomen and pelvis, it showed pneumoperitoneum and free fluid. Patient was felt that she has ruptured viscus, she was seen by surgery and she underwent exploratory laparotomy for her pneumoperitoneum, and she was found to have perforated duodenal ulcer. Patient had modified Lee patch and postoperatively the patient was extubated nonetheless she was admitted to the ICU, and this consult was initiated. I saw the patient in the ICU this morning, she is on 4 L nasal cannula, does not seem to be in any distress. She is already on Zosyn, and I added Diflucan. She is on LR at 125 cc/h. Her WBC count is 28.6, electrolytes are normal hemoglobin is 10.7 BUN is 97 creatinine down to 2.45 from 3.27 yesterday. Progress note dated April 10, 2024. 88-year-old female seen yesterday in consultation. She was admitted on April 08, with confusion and weakness. The patient had a repair of a perforated duodenal ulcer on April 09. Today is postop day #1. She is currently seen today in room 261. She is currently on 6 L of oxygen by nasal cannula. She has an NG tube in place. She is getting lactated Ringer's at 125 cc an hour. For atrial fibrillation with a rapid ventricular response, she was started on Cardizem drip at 5 mg an hour, and amiodarone 0.5 mg/min. No new labs today other than a glucose of 154. The labs from yesterday are reviewed. White count was 28.6. Hemoglobin 10.7, platelet count was normal. BUN and creatinine were 97 and 2.45. Chest x-ray suggested bilateral pleural effusions. Progress note dated April 11, 2024. 88-year-old female seen today in room 261. The patient was admitted on April 08, with confusion and weakness. The patient was discovered to have a perforated duodenal ulcer, and had a surgical repair performed on April 09. Today is postop day #2. The patient is currently without distress. She is on room air. NG tube remains in place. She is getting lactated Ringer's at 75 cc an hour. Because of atrial fibrillation and RVR, she continues on amiodarone 0.5 mg/min, and Cardizem at 5 mg an hour. Lab data includes a white count 34.6, hemoglobin 9.1, hematocrit 36.6, and a platelet count 442,000. Sodium 143, potassium 4.1, chlorides 113, CO2 23, BUN 71, creatinine 1.64. Glucose is 134. Albumin is 2.3. Blood cultures are currently negative. No chest x-ray today has been ordered. Progress note dated April 12, 2024. This is an 88-year-old female who is seen in room 261. The patient was admitted back on April 08, with confusion and weakness. She was discovered to have a perforated duodenal ulcer, and had surgical repair performed on April 09. Today is postoperative day #3. The patient is going to have a upper GI study today. She is getting lactated Ringer's at 75 cc an hour, 3 L of oxygen by nasal cannula, Cardizem at 5 mg an hour, and amiodarone at 0.5 mg/min. White count was 37.4, hemoglobin 11.6, hematocrit 38.5, and platelet count was normal. Sodium 145, potassium 3.2, chloride 115, CO2 24, BUN 52, creatinine 1.26. Glucose 123. Calcium 8.2. BUN 2.2. Blood cultures are currently negative. The patient's chest x-ray is stable, with some basilar atelectasis on the right. Upper GI study showed a leak, at the site of patch placement, in the duodenal bulb. Progress note dated April 13, 2024. 88-year-old female seen today in room 261. The patient is postop day #1, status post Billroth II gastrectomy, and Myles-en-Y reconstruction. The patient is currently on the ventilator. Ventilator settings include volume assist-control, rate 16, tidal volume 350, FiO2 40%, PEEP of 5. Blood gases show pO2 128, pCO2 34, pH is 7.43. The blood gases were done on 50% FiO2. The patient is on lactated Ringer's at 75 cc an hour, amiodarone 0.5 mg/min, Cardizem at 5 mg/h, and propofol, is restarted at a low rate. Current labs include a white count 34.8, hemoglobin 9.5, hematocrit 32.2, and a platelet count of 325,000. Sodium 141, potassium 4, chloride 114, CO2 21, BUN 48, creatinine 1.51. Glucose is 133. Calcium is 7. Blood cultures are negative. Chest x-ray shows in addition to endotracheal tube, and central venous line, blunting of the costophrenic angles. Progress note dated April 14, 2024. 88-year-old female seen today in room 261. She is postop day #2, status post Billroth II gastrectomy and Myles-en-Y reconstruction. The patient is on the ventilator. She was maintained on the ventilator overnight. Currently, the patient is on volume assist-control, rate 16, tidal volume 350, FiO2 30%, PEEP of 5. Blood gases show pO2 of 148, pCO2 33, pH is 7.42. Blood gases were done on 40%. The patient continues on amiodarone at 0.5 mg/min, lactated Ringer's at 75 cc an hour, propofol at 35 mcg/kg/min, and TPN at 30 cc an hour, to be increased to 55 cc an hour. Current white count is 25.2, hemoglobin 9.5, hematocrit 35.5, platelet count 362,000. Sodium 142, potassium 3.3, chlorides 112, CO2 25, BUN 50, creatinine 1.83. Albumin level was 1.9. Chest x-ray is largely unchanged. Objective - Vital Signs Vital signs: Vital Signs Temp 97 F L 04/14/24 08:00 Pulse 69 04/14/24 11:00 Resp 14 04/14/24 11:00 BP 149/66 04/14/24 11:00 Pulse Ox 100 04/14/24 11:00 FiO2 30 04/14/24 09:51 Intake & Output 04/13/24 04/14/24 04/14/24 18:59 06:59 18:59 Intake Total 3908.937 1029.682 991.704 Output Total 605 895 140 Balance 482.063 472.682 851.704 Weight 61.5 kg 65.1 kg 65.1 kg Intake: IV 978 1036 628 Fluconazole in NaCl,Iso- 50 50 Osm 100 mg In Saline 1 50ml.bag @ 50 mls/hr IVPB DAILY [facility] Rx#:[id number] Lactated Ringers 1,000 ml 825 900 375 @ 75 mls/hr IV .[id number] [facility] Rx#:[id number] Magnesium Sulfate-D5w Pmx 200 1 gm In Dextrose/Water 1 100ml.bag @ 100 mls/hr IVPB Q1H [facility] Rx#: [id number] Piperacillin-Tazobactam 3 100 100 .375 gm In Sodium Chloride 0.9% 100 ml @ 25 mls/hr IVPB Q8H [facility] Rx#: [id number] Pressure Bag (0.9 Sodium 3 36 3 Chl) Intake, IV Titration 109.063 331.682 363.704 Amount Amiodarone 450 mg In 250 Dextrose 5% in Water 250 ml @ 0.5 MG/MIN 16.667 mls/hr IV .Q15H [facility] Rx#: [id number] Potassium Chloride 20 meq 200 In Water For Injection 1 100ml.bag @ 50 mls/hr IVPB Q2H [facility] Rx#: [id number] Sodium Acetate 30 meq 60 Potassium Acetate 20 meq Magnesium Sulfate gm 1 gm Calcium Gluconate 1 gm Mvi, Adult No.4 with Vit K 10 ml Trace (Conc-1Ml/ Dose) 1 ml In Amino Acid 5%-D15w 1,000 ml @ 30 mls /hr IV .Q24H [facility] Rx#: [id number] propofoL 1,000 mg In 109.063 Empty Bag 1 bag @ 15 MCG/ KG/MIN 5.544 mls/hr IV . Q18H3M [facility] Rx#:[id number] propofoL 1,000 mg In 81.682 103.704 Empty Bag 1 bag @ 15 MCG/ KG/MIN 5.544 mls/hr IV . Q18H3M [facility] Rx#:[id number] Output: Drainage 110 120 Lower Right Abdomen 40 40 Medial Abdomen 70 80 Urine 495 775 140 Other: Voiding Method Indwelling Catheter Indwelling Catheter Indwelling Catheter ABP, PAP, CO, CI - Last Documented Arterial Blood Pressure 90/59 - Exam No acute distress, sedated, with an orally placed endotracheal tube. She has a orogastric tube as well. HEENT examination is grossly unremarkable. Neck supple. Full range of motion. No adenopathy thyromegaly or neck vein distention. Cardiovascular examination reveals regular rhythm rate. S1-S2 normal. No S3 or S4. No discernible murmur noted. Heart rate is 69 bpm. Lungs reveal rhonchi. No wheezes or crackles. Breath sounds equal. Saturations are 99 %. Abdomen soft, without bowel sounds. Abdominal incision is dressed. Extremities are intact. No cyanosis clubbing or edema. Skin is without rash or lesion. Neurologic examination is brief but nonfocal. - Labs CBC & Chem 7: 04/14/24 05:59 04/14/24 05:59 Labs: Abnormal Lab Results - Last 24 Hours (Table) 04/13/24 04/13/24 04/13/24 Range/Units 03:25 11:57 17:49 WBC (3.8-10.6) k/uL RBC (3.80-5.40) m/uL Hgb (11.4-16.0) gm/dL Hct (34.0-46.0) % MCHC (31.0-37.0) g/dL ABG pH (7.35-7.45) ABG pCO2 (35-45) mmHg ABG pO2 (83-108) mmHg ABG Total CO2 (19-24) mmol/L ABG O2 Saturation (94-97) % Potassium (3.5-5.1) mmol/L Chloride (98-107) mmol/L BUN (7-17) mg/dL Creatinine (0.52-1.04) mg/dL Glucose (74-99) mg/dL POC Glucose (mg/dL) 139 H 139 H (70-110) mg/dL Calcium (8.4-10.2) mg/dL Ionized Calcium Ulises (4.5-5.3) mg/dL Phosphorus 5.0 H (2.5-4.5) mg/dL Magnesium 1.4 L (1.6-2.3) mg/dL Total Protein (6.3-8.2) g/dL Albumin (3.5-5.0) g/dL 04/13/24 04/14/24 04/14/24 Range/Units 23:24 05:59 05:59 WBC 25.2 H (3.8-10.6) k/uL RBC 3.27 L (3.80-5.40) m/uL Hgb 9.5 L (11.4-16.0) gm/dL Hct 31.5 L (34.0-46.0) % MCHC 30.3 L (31.0-37.0) g/dL ABG pH (7.35-7.45) ABG pCO2 (35-45) mmHg ABG pO2 (83-108) mmHg ABG Total CO2 (19-24) mmol/L ABG O2 Saturation (94-97) % Potassium 3.3 L (3.5-5.1) mmol/L Chloride 112 H (98-107) mmol/L BUN 50 H (7-17) mg/dL Creatinine 1.83 H (0.52-1.04) mg/dL Glucose 191 H (74-99) mg/dL POC Glucose (mg/dL) 170 H (70-110) mg/dL Calcium 6.8 L (8.4-10.2) mg/dL Ionized Calcium Ulises 4.2 L (4.5-5.3) mg/dL Phosphorus (2.5-4.5) mg/dL Magnesium (1.6-2.3) mg/dL Total Protein 4.0 L (6.3-8.2) g/dL Albumin 1.9 L (3.5-5.0) g/dL 04/14/24 Range/Units 06:16 WBC (3.8-10.6) k/uL RBC (3.80-5.40) m/uL Hgb (11.4-16.0) gm/dL Hct (34.0-46.0) % MCHC (31.0-37.0) g/dL ABG pH 7.47 H (7.35-7.45) ABG pCO2 33 L (35-45) mmHg ABG pO2 148 H (83-108) mmHg ABG Total CO2 25 H (19-24) mmol/L ABG O2 Saturation 99.8 H (94-97) % Potassium (3.5-5.1) mmol/L Chloride (98-107) mmol/L BUN (7-17) mg/dL Creatinine (0.52-1.04) mg/dL Glucose (74-99) mg/dL POC Glucose (mg/dL) (70-110) mg/dL Calcium (8.4-10.2) mg/dL Ionized Calcium Ulises (4.5-5.3) mg/dL Phosphorus (2.5-4.5) mg/dL Magnesium (1.6-2.3) mg/dL Total Protein (6.3-8.2) g/dL Albumin (3.5-5.0) g/dL Microbiology - Last 24 Hours (Table) 04/12/24 16:05 Gram Stain - Preliminary Other - Other Assessment and Plan Assessment: Postoperative day #5, S/P exploratory laparotomy, repair of perforated duodenal ulcer, and application of a modified Lee patch. Postoperative day #2, status post Billroth II gastrectomy, and Myles-en-Y reconstruction. Upper GI series, showing leak, at the site of the modified Lee patch. Acute abdominal sepsis. Acute atrial fibrillation, with rapid ventricular response. History of splenic hematoma, without rupture. Acute dehydration with acute kidney injury. Nonanion gap metabolic acidosis. Leukocytosis, secondary to sepsis. Hypovolemic hyponatremia, recovered. General medical debility. Plan: Plan dated April 10, 2024. The patient had surgery done yesterday, she had an exploratory laparotomy, and repair of a perforated duodenal ulcer. She is currently on 6 L nasal cannula. She did develop some atrial fibrillation with RVR overnight. She was placed on both Cardizem drip, and amiodarone drip. Labs, x-rays, and medications are all reviewed. We will continue to follow the patient, make recommendations along the way. Prognosis is guarded. Plan dated April 11, 2024. The patient appears to be doing relatively well. She still has an NG tube in place. She still NPO. She continues on Cardizem, and amiodarone, for atrial fibrillation with RVR. Labs, x-rays, and medications are reviewed. The patient remains on room air. NG tube remains in place. She is getting lactated Ringer's at 75 cc an hour. We will continue to follow make recommendations along the way. The patient's overall prognosis remains very guarded.\ Plan dated April 12, 2024. The patient's upper GI series, showed a leak, at the site of the modified Lee patch. The patient's labs, x-rays, and medications are all reviewed. The patient is currently on 3 L of oxygen. We will continue to follow make recommendations along the way. In addition, the patient continues on Cardizem at 5 mg an hour, and amiodarone at 0.5 mg/min, for atrial fibrillation/RVR. The patient is also getting lactated Ringer's at 75 cc an hour. We will continue to follow make recommendations along the way. Prognosis is guarded. Plan dated April 13, 2024. The patient's upper GI series showed a leak at the site of the modified Lee patch. The patient is postoperative day #1, status post Billroth II gastrectomy, and Myles-en-Y reconstruction. The patient is currently on the mechanical ventilator, and will stay there overnight. She has a endotracheal tube in place, and an orogastric tube in place as well. She continues on amiodarone at 0.5 mg/min, Cardizem 5 mg/h. Propofol was restarted. She is getting lactated Ringer's at 75 cc an hour. Labs, x-rays, and medications are reviewed. No additional recommendations are made at this time. We will continue to follow, as prognosis is guarded. Plan dated April 14, 2024. The patient appears to be doing well. In fact, the patient will have a daily interruption of sedation, with a spontaneous breathing trial. The patient may benefit from extubation. The patient does continue on Zosyn. Labs, x-rays, and medications are reviewed. The patient also continues on amiodarone at 0.5 mg/min. Propofol is on hold. TPN is running at 30 cc an hour with a goal of 55. We will continue to follow and make recommendations along the way. Prognosis is guarded. No additional recommendations at this time. Time with Patient: Greater than 30
[2024-04-14 12:02] LABS: Glucose,Whole Blood 198 mg/dL (70-110)
[2024-04-14] MEDS: INSULIN ASPART (NovoLOG) 100 UNIT/ML VIAL SQ SCH (12:04)
--- NOTE | 2024-04-14 13:20 | P.PN ---
Subjective Progress Note Date: 04/14/24 Principal diagnosis: Perforated duodenal ulcer Patient was able to be extubated this morning. Denies pain currently. Right- sided SHRUTHI drain seropurulent, left-sided SHRUTHI drain serous. She is afebrile. White blood cell count improved today. While the oral gastric tube was in place but he only had 50 cc output overnight. Objective - Vital Signs Vital signs: Vital Signs Temp 97.9 F 04/14/24 12:00 Pulse 71 04/14/24 12:00 Resp 17 04/14/24 12:00 BP 136/54 04/14/24 12:00 Pulse Ox 99 04/14/24 12:00 FiO2 30 04/14/24 09:51 Intake & Output 04/13/24 04/14/24 04/14/24 18:59 06:59 18:59 Intake Total 2489.772 8159.682 1066.704 Output Total 605 895 215 Balance 482.063 472.682 851.704 Weight 61.5 kg 65.1 kg 65.1 kg Intake: IV 978 1036 703 Fluconazole in NaCl,Iso- 50 50 Osm 100 mg In Saline 1 50ml.bag @ 50 mls/hr IVPB DAILY [facility] Rx#:[id number] Lactated Ringers 1,000 ml 825 900 450 @ 75 mls/hr IV .[id number] [facility] Rx#:[id number] Magnesium Sulfate-D5w Pmx 200 1 gm In Dextrose/Water 1 100ml.bag @ 100 mls/hr IVPB Q1H [facility] Rx#: [id number] Piperacillin-Tazobactam 3 100 100 .375 gm In Sodium Chloride 0.9% 100 ml @ 25 mls/hr IVPB Q8H [facility] Rx#: [id number] Pressure Bag (0.9 Sodium 3 36 3 Chl) Intake, IV Titration 109.063 331.682 363.704 Amount Amiodarone 450 mg In 250 Dextrose 5% in Water 250 ml @ 0.5 MG/MIN 16.667 mls/hr IV .Q15H [facility] Rx#: [id number] Potassium Chloride 20 meq 200 In Water For Injection 1 100ml.bag @ 50 mls/hr IVPB Q2H [facility] Rx#: [id number] Sodium Acetate 30 meq 60 Potassium Acetate 20 meq Magnesium Sulfate gm 1 gm Calcium Gluconate 1 gm Mvi, Adult No.4 with Vit K 10 ml Trace (Conc-1Ml/ Dose) 1 ml In Amino Acid 5%-D15w 1,000 ml @ 30 mls /hr IV .Q24H [facility] Rx#: [id number] propofoL 1,000 mg In 109.063 Empty Bag 1 bag @ 15 MCG/ KG/MIN 5.544 mls/hr IV . Q18H3M [facility] Rx#:[id number] propofoL 1,000 mg In 81.682 103.704 Empty Bag 1 bag @ 15 MCG/ KG/MIN 5.544 mls/hr IV . Q18H3M [facility] Rx#:[id number] Output: Drainage 110 120 Lower Right Abdomen 40 40 Medial Abdomen 70 80 Urine 495 775 215 Other: Voiding Method Indwelling Catheter Indwelling Catheter Indwelling Catheter ABP, PAP, CO, CI - Last Documented Arterial Blood Pressure 90/59 - Exam Abdomen: Soft, mild incisional tenderness, dressing clean and dry, drains as described - Labs CBC & Chem 7: 04/14/24 05:59 04/14/24 05:59 Labs: Abnormal Lab Results - Last 24 Hours (Table) 04/13/24 04/13/24 04/13/24 Range/Units 03:25 17:49 23:24 WBC (3.8-10.6) k/uL RBC (3.80-5.40) m/uL Hgb (11.4-16.0) gm/dL Hct (34.0-46.0) % MCHC (31.0-37.0) g/dL ABG pH (7.35-7.45) ABG pCO2 (35-45) mmHg ABG pO2 (83-108) mmHg ABG Total CO2 (19-24) mmol/L ABG O2 Saturation (94-97) % Potassium (3.5-5.1) mmol/L Chloride (98-107) mmol/L BUN (7-17) mg/dL Creatinine (0.52-1.04) mg/dL Glucose (74-99) mg/dL POC Glucose (mg/dL) 139 H 170 H (70-110) mg/dL Calcium (8.4-10.2) mg/dL Ionized Calcium Ulises (4.5-5.3) mg/dL Phosphorus 5.0 H (2.5-4.5) mg/dL Magnesium 1.4 L (1.6-2.3) mg/dL Total Protein (6.3-8.2) g/dL Albumin (3.5-5.0) g/dL 04/14/24 04/14/24 04/14/24 Range/Units 05:59 05:59 06:16 WBC 25.2 H (3.8-10.6) k/uL RBC 3.27 L (3.80-5.40) m/uL Hgb 9.5 L (11.4-16.0) gm/dL Hct 31.5 L (34.0-46.0) % MCHC 30.3 L (31.0-37.0) g/dL ABG pH 7.47 H (7.35-7.45) ABG pCO2 33 L (35-45) mmHg ABG pO2 148 H (83-108) mmHg ABG Total CO2 25 H (19-24) mmol/L ABG O2 Saturation 99.8 H (94-97) % Potassium 3.3 L (3.5-5.1) mmol/L Chloride 112 H (98-107) mmol/L BUN 50 H (7-17) mg/dL Creatinine 1.83 H (0.52-1.04) mg/dL Glucose 191 H (74-99) mg/dL POC Glucose (mg/dL) (70-110) mg/dL Calcium 6.8 L (8.4-10.2) mg/dL Ionized Calcium Ulises 4.2 L (4.5-5.3) mg/dL Phosphorus (2.5-4.5) mg/dL Magnesium (1.6-2.3) mg/dL Total Protein 4.0 L (6.3-8.2) g/dL Albumin 1.9 L (3.5-5.0) g/dL 04/14/24 Range/Units 12:01 WBC (3.8-10.6) k/uL RBC (3.80-5.40) m/uL Hgb (11.4-16.0) gm/dL Hct (34.0-46.0) % MCHC (31.0-37.0) g/dL ABG pH (7.35-7.45) ABG pCO2 (35-45) mmHg ABG pO2 (83-108) mmHg ABG Total CO2 (19-24) mmol/L ABG O2 Saturation (94-97) % Potassium (3.5-5.1) mmol/L Chloride (98-107) mmol/L BUN (7-17) mg/dL Creatinine (0.52-1.04) mg/dL Glucose (74-99) mg/dL POC Glucose (mg/dL) 198 H (70-110) mg/dL Calcium (8.4-10.2) mg/dL Ionized Calcium Ulises (4.5-5.3) mg/dL Phosphorus (2.5-4.5) mg/dL Magnesium (1.6-2.3) mg/dL Total Protein (6.3-8.2) g/dL Albumin (3.5-5.0) g/dL Microbiology - Last 24 Hours (Table) 04/12/24 16:05 Gram Stain - Preliminary Other - Other Assessment and Plan (1) Perforated duodenal ulcer Narrative/Plan: 88-year-old female with perforated duodenal ulcer. Doing better today. Continue pulmonary toilet. Keep strict n.p.o. for now. Continue antiacids. Continue TPN. Increase activity and out of bed to chair once stable. Current Visit: Yes Status: Acute Code(s): K26.5 - CHRONIC OR UNSPECIFIED DUODENAL ULCER WITH PERFORATION SNOMED Code(s): 61096731
[2024-04-14] MEDS: IPRATROPIUM-ALBUTEROL 3 ML NEB INHALATION SCH (13:25)
--- NOTE | 2024-04-14 15:55 | P.PN ---
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 completed on 04/12/2024 On today's evaluation 04/14/2024,the patient remains to be afebrile, patient has been extubated is on 2 L nasal cannula supplemental oxygen and denies any shortness of breath no chest pain or cough.Patient denies having any nausea or vomiting, no abdominal pain and no diarrhea has been reported Patient white count is down to 25.2 creatinine is 1.83 abdominal cultures are pending Objective - Vital Signs Vital signs: Vital Signs Temp 97.9 F 04/14/24 12:00 Pulse 71 04/14/24 12:00 Resp 17 04/14/24 12:00 BP 136/54 04/14/24 12:00 Pulse Ox 99 04/14/24 12:00 FiO2 30 04/14/24 09:51 Intake & Output 04/13/24 04/14/24 04/14/24 18:59 06:59 18:59 Intake Total 6805.106 9891.682 1066.704 Output Total 605 895 215 Balance 482.063 472.682 851.704 Weight 61.5 kg 65.1 kg 65.1 kg Intake: IV 978 1036 703 Fluconazole in NaCl,Iso- 50 50 Osm 100 mg In Saline 1 50ml.bag @ 50 mls/hr IVPB DAILY [facility] Rx#:[id number] Lactated Ringers 1,000 ml 825 900 450 @ 75 mls/hr IV .[id number] [facility] Rx#:[id number] Magnesium Sulfate-D5w Pmx 200 1 gm In Dextrose/Water 1 100ml.bag @ 100 mls/hr IVPB Q1H [facility] Rx#: [id number] Piperacillin-Tazobactam 3 100 100 .375 gm In Sodium Chloride 0.9% 100 ml @ 25 mls/hr IVPB Q8H [facility] Rx#: [id number] Pressure Bag (0.9 Sodium 3 36 3 Chl) Intake, IV Titration 109.063 331.682 363.704 Amount Amiodarone 450 mg In 250 Dextrose 5% in Water 250 ml @ 0.5 MG/MIN 16.667 mls/hr IV .Q15H [facility] Rx#: [id number] Potassium Chloride 20 meq 200 In Water For Injection 1 100ml.bag @ 50 mls/hr IVPB Q2H [facility] Rx#: [id number] Sodium Acetate 30 meq 60 Potassium Acetate 20 meq Magnesium Sulfate gm 1 gm Calcium Gluconate 1 gm Mvi, Adult No.4 with Vit K 10 ml Trace (Conc-1Ml/ Dose) 1 ml In Amino Acid 5%-D15w 1,000 ml @ 30 mls /hr IV .Q24H [facility] Rx#: [id number] propofoL 1,000 mg In 109.063 Empty Bag 1 bag @ 15 MCG/ KG/MIN 5.544 mls/hr IV . Q18H3M [facility] Rx#:[id number] propofoL 1,000 mg In 81.682 103.704 Empty Bag 1 bag @ 15 MCG/ KG/MIN 5.544 mls/hr IV . Q18H3M [facility] Rx#:[id number] Output: Drainage 110 120 Lower Right Abdomen 40 40 Medial Abdomen 70 80 Urine 495 775 215 Other: Voiding Method Indwelling Catheter Indwelling Catheter Indwelling Catheter ABP, PAP, CO, CI - Last Documented Arterial Blood Pressure 90/59 - Exam GENERAL DESCRIPTION: An elderly female intubated on the vent RESPIRATORY SYSTEM: Unlabored breathing , decreased breath sounds at bases HEART: S1 S2 regular rate and rhythm , ABDOMEN: Soft , mild tenderness EXTREMITIES: No edema feet - Labs CBC & Chem 7: 04/14/24 05:59 04/14/24 05:59 Labs: Abnormal Lab Results - Last 24 Hours (Table) 04/13/24 04/13/24 04/13/24 Range/Units 03:25 17:49 23:24 WBC (3.8-10.6) k/uL RBC (3.80-5.40) m/uL Hgb (11.4-16.0) gm/dL Hct (34.0-46.0) % MCHC (31.0-37.0) g/dL ABG pH (7.35-7.45) ABG pCO2 (35-45) mmHg ABG pO2 (83-108) mmHg ABG Total CO2 (19-24) mmol/L ABG O2 Saturation (94-97) % Potassium (3.5-5.1) mmol/L Chloride (98-107) mmol/L BUN (7-17) mg/dL Creatinine (0.52-1.04) mg/dL Glucose (74-99) mg/dL POC Glucose (mg/dL) 139 H 170 H (70-110) mg/dL Calcium (8.4-10.2) mg/dL Ionized Calcium Ulises (4.5-5.3) mg/dL Phosphorus 5.0 H (2.5-4.5) mg/dL Magnesium 1.4 L (1.6-2.3) mg/dL Total Protein (6.3-8.2) g/dL Albumin (3.5-5.0) g/dL 04/14/24 04/14/24 04/14/24 Range/Units 05:59 05:59 06:16 WBC 25.2 H (3.8-10.6) k/uL RBC 3.27 L (3.80-5.40) m/uL Hgb 9.5 L (11.4-16.0) gm/dL Hct 31.5 L (34.0-46.0) % MCHC 30.3 L (31.0-37.0) g/dL ABG pH 7.47 H (7.35-7.45) ABG pCO2 33 L (35-45) mmHg ABG pO2 148 H (83-108) mmHg ABG Total CO2 25 H (19-24) mmol/L ABG O2 Saturation 99.8 H (94-97) % Potassium 3.3 L (3.5-5.1) mmol/L Chloride 112 H (98-107) mmol/L BUN 50 H (7-17) mg/dL Creatinine 1.83 H (0.52-1.04) mg/dL Glucose 191 H (74-99) mg/dL POC Glucose (mg/dL) (70-110) mg/dL Calcium 6.8 L (8.4-10.2) mg/dL Ionized Calcium Ulises 4.2 L (4.5-5.3) mg/dL Phosphorus (2.5-4.5) mg/dL Magnesium (1.6-2.3) mg/dL Total Protein 4.0 L (6.3-8.2) g/dL Albumin 1.9 L (3.5-5.0) g/dL 04/14/24 Range/Units 12:01 WBC (3.8-10.6) k/uL RBC (3.80-5.40) m/uL Hgb (11.4-16.0) gm/dL Hct (34.0-46.0) % MCHC (31.0-37.0) g/dL ABG pH (7.35-7.45) ABG pCO2 (35-45) mmHg ABG pO2 (83-108) mmHg ABG Total CO2 (19-24) mmol/L ABG O2 Saturation (94-97) % Potassium (3.5-5.1) mmol/L Chloride (98-107) mmol/L BUN (7-17) mg/dL Creatinine (0.52-1.04) mg/dL Glucose (74-99) mg/dL POC Glucose (mg/dL) 198 H (70-110) mg/dL Calcium (8.4-10.2) mg/dL Ionized Calcium Ulises (4.5-5.3) mg/dL Phosphorus (2.5-4.5) mg/dL Magnesium (1.6-2.3) mg/dL Total Protein (6.3-8.2) g/dL Albumin (3.5-5.0) g/dL Microbiology - Last 24 Hours (Table) 04/12/24 16:05 Gram Stain - Preliminary Other - Other Assessment and Plan (1) Peritonitis Current Visit: Yes Status: Acute Code(s): K65.9 - PERITONITIS, UNSPECIFIED SNOMED Code(s): 23066703 (2) Leukocytosis Current Visit: Yes Status: Acute Code(s): D72.829 - ELEVATED WHITE BLOOD CELL COUNT, UNSPECIFIED SNOMED Code(s): 884560771 (3) Perforated duodenal ulcer Current Visit: Yes Status: Acute Code(s): K26.5 - CHRONIC OR UNSPECIFIED DUODENAL ULCER WITH PERFORATION SNOMED Code(s): 38055827 Plan: 1patient presented to hospital with abdominal pain constipation has been diagnosed with the pneumoperitoneum secondary to perforated duodenal ulcer sta tus post laparotomy and repair of the perforated jejunal ulcer we will need to cover for gram-negative and yeast. 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 please excuse any grammatical, word or spelling errors. Time with Patient: Less than 30
[2024-04-14] MEDS: SODIUM ACETATE IV SCH (16:10)
[2024-04-14] MEDS: POTASSIUM ACETATE IV SCH (16:10)
[2024-04-14] MEDS: [UNRECOGNIZED DRUG - OTHER] IV SCH (16:10)
[2024-04-14] MEDS: MAGNESIUM SULFATE IV SCH (16:10)
[2024-04-14 17:25] LABS: Magnesium 2.1 mg/dL (1.6-2.3); Potassium 4.3 mmol/L (3.5-5.1)
[2024-04-14 17:46] LABS: Glucose,Whole Blood 179 mg/dL (70-110)
[2024-04-14] MEDS: PIPERACILLIN-TAZOBACTAM 3.375 GM in SODIUM CHLORIDE 0.9% 100 ML IVPB SCH (18:00)
--- NOTE | 2024-04-14 22:39 | P.PN ---
Subjective This is an 88-year-old female patient who is somewhat poor historian who we are asked to see in the intensive care unit for further evaluation of atrial fibrillation with rapid ventricular response. The patient lives by herself. She has some underlying dementia. She was brought by her neighbor because she fell 2 days ago and has not been feeling well. She has been experiencing intermittent episodes of confusion and she was also having failure to thrive. Beside that she was feeling nauseated and experiencing intermittent episodes of abdominal discomfort. She underwent further investigation in the emergency department including an EKG showing sinus mechanism with nonspecific ST and T wave abnormalities and also she underwent a CT scan of the abdomen and that revealed perforated bowel. The patient underwent surgery yesterday and this is her postoperation day #1. No history of CAD or CHF or cardiac arrhythmia including atrial fibrillation the patient never seen by a [facility] consultant in the past according to her. The patient is extremely poor historian and she has difficulty hearing. Subsequently the patient was started on Cardizem IV and amiodarone IV and converted to normal sinus mechanism and has been maintaining normal sinus mechanism with heart rate in the 50s as well as the 60s. Currently she is not on any IV heparin or anticoagulation. We are going to find out from the surgical team when it is safe to start the patient on IV heparin at this point. Apparently she is n.p.o. and cannot take any oral medication and for that reason she is on the IV AV georgie harvinder agents. An echocardiogram was ordered and still pending. Further investigation also was performed including creatinine came to be at 2.5 but the patient has not been able to urinate and there is a component of obstructive uropathy and currently urology service is on the case to place a Walters catheter. Beside that her hemoglobin has been around 10.5. The examination is remarkable for regular rhythm with distant heart sounds and systolic murmur at the right upper sternal border with diminished breathing sounds bilaterally and no edema was noted in the lower extremities 04/12 patient seen and examined. Patient's creatinine has improved to 1.2. She denies any chest pain or pressure. Denies any significant shortness breath. Has some vague abdominal pain. Concern of continued leak from upper GI study. Echocardiogram performed which shows preserved EF without significant valvular disease. Has been on IV amiodarone as well as IV Cardizem drip secondary to patient being nothing by mouth. 04/13 Seen and examined. Remains intubated and sedated. Recievieng TPN, NPO on amio and Cardizem drip. Hgb dropped however may be dilutional. Did have decreased urine outpt and therefore was given dose of Lasix. 04/14 Heart appearing however denying any chest pain or pressure or significant abdominal pain. Still nothing by mouth and therefore receiving IV amiodarone. Remains in normal sinus rhythm. CVP was checked yesterday with low reading in the 2-3 range. Still receiving TPN PHYSICAL EXAMINATION Vital signs reviewed. CONSTITUTIONAL: No apparent distress. HEENT: Head is normocephalic. Pupils are equal, round. Sclerae anicteric. Mucous membranes of the mouth are moist. No JVD. No carotid bruit. CHEST EXAMINATION: Lungs are clear to auscultation. No chest wall tenderness is noted on palpation or with deep breathing. HEART EXAMINATION: Regular rate and rhythm. S1, S2 heard. No murmurs, gallops or rub. ABDOMEN: Soft, nontender. Positive bowel sounds. EXTREMITIES: 2+ peripheral pulses, no lower extremity edema and no calf tenderness. NEUROLOGIC EXAMINATION: Patient is awake, alert and oriented x3. Assessment Status post abdominal surgery, perforated bowel with continued bowel leak Parosyxmal atrial fibrillation new onset. Currently the patient is in sinus mechanism. Obstructive uropathy JESÚS, somewhat worsening in the last 2 days possibly related to the decreased intervascular volume Multiple comorbid conditions Anemia with drop in hgb Plan Continue with amiodarone IV given she is nothing by mouth Not a good anticoagulation candidate currently with concern of continued leak and decrease in Hgb. Echo showing preserved EF. Continue her current supportive care CVP is low and therefore consider increasing IV fluids however we will defer to nephrology with increasing creatinine Further recommendations to follow. Objective - Vital Signs Vital signs: Vital Signs Temp 98.6 F 04/14/24 20:00 Pulse 80 04/14/24 22:00 Resp 16 04/14/24 22:00 BP 141/59 04/14/24 22:00 Pulse Ox 94 L 04/14/24 22:00 FiO2 30 04/14/24 09:51 Intake & Output 04/14/24 04/14/24 04/15/24 06:59 18:59 06:59 Intake Total 0677.527 9484.704 333.338 Output Total 895 650 330 Balance 062.514 0952.704 3.338 Weight 65.1 kg 65.1 kg Intake: IV 1036 1088 80 0.9 NS 60 80 Fluconazole in NaCl,Iso- 50 Osm 100 mg In Saline 1 50ml.bag @ 50 mls/hr IVPB DAILY [facility] Rx#:[id number] Lactated Ringers 1,000 ml 900 675 @ 75 mls/hr IV .[id number] [facility] Rx#:[id number] Magnesium Sulfate-D5w Pmx 200 1 gm In Dextrose/Water 1 100ml.bag @ 100 mls/hr IVPB Q1H [facility] Rx#: [id number] Piperacillin-Tazobactam 3 100 100 .375 gm In Sodium Chloride 0.9% 100 ml @ 25 mls/hr IVPB Q8H [facility] Rx#: [id number] Pressure Bag (0.9 Sodium 36 3 Chl) Intake, IV Titration 331.682 723.704 253.338 Amount Amiodarone 450 mg In 250 213.338 Dextrose 5% in Water 250 ml @ 0.5 MG/MIN 16.667 mls/hr IV .Q15H [facility] Rx#: [id number] Calcium Gluconate in NaCl 100 1 gm In Saline 1 100ml. bag @ 100 mls/hr IVPB ONCE [facility] Rx#:[id number] Potassium Chloride 20 meq 200 In Water For Injection 1 100ml.bag @ 50 mls/hr IVPB Q2H [facility] Rx#: [id number] Sodium Acetate 30 meq 240 Potassium Acetate 20 meq Magnesium Sulfate gm 1 gm Calcium Gluconate 1 gm Mvi, Adult No.4 with Vit K 10 ml Trace (Conc-1Ml/ Dose) 1 ml In Amino Acid 5%-D15w 1,000 ml @ 30 mls /hr IV .Q24H [facility] Rx#: [id number] Sodium Acetate 30 meq 80 40 Potassium Acetate 20 meq Magnesium Sulfate gm 1 gm Calcium Gluconate 1 gm Mvi, Adult No.4 with Vit K 10 ml Trace (Conc-1Ml/ Dose) 1 ml In Amino Acid 5%-D15w 1,000 ml @ 40 mls /hr IV .Q24H [facility] Rx#: [id number] propofoL 1,000 mg In 81.682 103.704 Empty Bag 1 bag @ 15 MCG/ KG/MIN 5.544 mls/hr IV . Q18H3M [facility] Rx#:[id number] Output: Drainage 120 160 100 Lower Right Abdomen 40 140 20 Medial Abdomen 80 20 80 Urine 775 490 230 Other: Voiding Method Indwelling Catheter Indwelling Catheter ABP, PAP, CO, CI - Last Documented Arterial Blood Pressure 90/59 - Labs CBC & Chem 7: 04/14/24 05:59 04/14/24 16:15 Labs: Abnormal Lab Results - Last 24 Hours (Table) 04/13/24 04/14/24 04/14/24 Range/Units 23:24 05:59 05:59 WBC 25.2 H (3.8-10.6) k/uL RBC 3.27 L (3.80-5.40) m/uL Hgb 9.5 L (11.4-16.0) gm/dL Hct 31.5 L (34.0-46.0) % MCHC 30.3 L (31.0-37.0) g/dL ABG pH (7.35-7.45) ABG pCO2 (35-45) mmHg ABG pO2 (83-108) mmHg ABG Total CO2 (19-24) mmol/L ABG O2 Saturation (94-97) % Potassium 3.3 L (3.5-5.1) mmol/L Chloride 112 H (98-107) mmol/L BUN 50 H (7-17) mg/dL Creatinine 1.83 H (0.52-1.04) mg/dL Glucose 191 H (74-99) mg/dL POC Glucose (mg/dL) 170 H (70-110) mg/dL Hemoglobin A1c (<=6.0) % Calcium 6.8 L (8.4-10.2) mg/dL Ionized Calcium Ulises 4.2 L (4.5-5.3) mg/dL Total Protein 4.0 L (6.3-8.2) g/dL Albumin 1.9 L (3.5-5.0) g/dL 04/14/24 04/14/24 04/14/24 Range/Units 05:59 06:16 12:01 WBC (3.8-10.6) k/uL RBC (3.80-5.40) m/uL Hgb (11.4-16.0) gm/dL Hct (34.0-46.0) % MCHC (31.0-37.0) g/dL ABG pH 7.47 H (7.35-7.45) ABG pCO2 33 L (35-45) mmHg ABG pO2 148 H (83-108) mmHg ABG Total CO2 25 H (19-24) mmol/L ABG O2 Saturation 99.8 H (94-97) % Potassium (3.5-5.1) mmol/L Chloride (98-107) mmol/L BUN (7-17) mg/dL Creatinine (0.52-1.04) mg/dL Glucose (74-99) mg/dL POC Glucose (mg/dL) 198 H (70-110) mg/dL Hemoglobin A1c 6.3 H (<=6.0) % Calcium (8.4-10.2) mg/dL Ionized Calcium Ulises (4.5-5.3) mg/dL Total Protein (6.3-8.2) g/dL Albumin (3.5-5.0) g/dL 04/14/24 Range/Units 17:43 WBC (3.8-10.6) k/uL RBC (3.80-5.40) m/uL Hgb (11.4-16.0) gm/dL Hct (34.0-46.0) % MCHC (31.0-37.0) g/dL ABG pH (7.35-7.45) ABG pCO2 (35-45) mmHg ABG pO2 (83-108) mmHg ABG Total CO2 (19-24) mmol/L ABG O2 Saturation (94-97) % Potassium (3.5-5.1) mmol/L Chloride (98-107) mmol/L BUN (7-17) mg/dL Creatinine (0.52-1.04) mg/dL Glucose (74-99) mg/dL POC Glucose (mg/dL) 179 H (70-110) mg/dL Hemoglobin A1c (<=6.0) % Calcium (8.4-10.2) mg/dL Ionized Calcium Ulises (4.5-5.3) mg/dL Total Protein (6.3-8.2) g/dL Albumin (3.5-5.0) g/dL Microbiology - Last 24 Hours (Table) 04/12/24 16:05 Gram Stain - Final Other - Other Wound Culture - Final 04/08/24 23:00 Blood Culture - Final Blood 04/08/24 22:45 Blood Culture - Final Blood
[2024-04-14 23:47] LABS: Glucose,Whole Blood 166 mg/dL (70-110)
[2024-04-15 03:24] LABS: HCT 27.4 % (34.0-46.0); HGB 8.9 gm/dL (11.4-16.0); Hypochromasia Slight; MCH 30.8 pg (25.0-35.0); MCHC 32.6 g/dL (31.0-37.0); MCV 94.3 fL (80.0-100.0); Mean Platelet Volume 9.8; Platelet Count 334 k/uL (150-450); WBC 18.1 k/uL (3.8-10.6)
[2024-04-15 04:08] LABS: African American GFR (CKD) 40 (>60 ml/min/1.73 sqM); Anion Gap 3 mmol/L; Blood Urea Nitrogen 46 mg/dL (7-17); Calcium 7.2 mg/dL (8.4-10.2); Carbon Dioxide 23 mmol/L (22-30); Chloride 114 mmol/L (98-107); Glucose 145 mg/dL (74-99); Non-African American GFR(CKD) 35 (>60 ml/min/1.73 sqM); Phosphorus 1.9 mg/dL (2.5-4.5); Potassium 3.9 mmol/L (3.5-5.1); Sodium 140 mmol/L (137-145)
[2024-04-15] MEDS ORDERED: Potassium Replacement Protocol 1 EACH MISC MISCELLANE PRN (04:11)
[2024-04-15] MEDS: POTASSIUM CHLORIDE 10 MEQ in WATER FOR INJECTION 1 100ML.BAG IVPB SCH (04:27)
[2024-04-15 06:12] LABS: Glucose,Whole Blood 170 mg/dL (70-110)
--- NOTE | 2024-04-15 09:00 | P.PN ---
Subjective Patient is seen in follow-up for acute kidney injury. Renal function improved. Receiving TPN. Off IV fluids. Denies chest pain or shortness of breath. No significant pain. On amiodarone drip for A-fib. Vital signs are stable. General: No acute distress. HEENT: Head exam is unremarkable. LUNGS: No audible rhonchi or wheezes. HEART: Rate and Rhythm are regular. ABDOMEN: Nontender. SHRUTHI drain noted. EXTREMITITES: No edema. Objective - Vital Signs Vital signs: Vital Signs Temp 98.8 F 04/15/24 04:00 Pulse 74 04/15/24 08:12 Resp 14 04/15/24 08:00 BP 145/63 04/15/24 08:00 Pulse Ox 95 04/15/24 08:02 FiO2 30 04/14/24 09:51 Intake & Output 04/14/24 04/15/24 04/15/24 18:59 06:59 18:59 Intake Total 1811.704 813.338 60 Output Total 650 1360 100 Balance 1161.704 -546.662 -40 Weight 65.1 kg 65.907 kg Intake: IV 1088 560 20 0.9 NS 60 260 20 Fluconazole in NaCl,Iso- 50 Osm 100 mg In Saline 1 50ml.bag @ 50 mls/hr IVPB DAILY [facility] Rx#:[id number] Lactated Ringers 1,000 ml 675 @ 75 mls/hr IV .[id number] [facility] Rx#:[id number] Magnesium Sulfate-D5w Pmx 200 1 gm In Dextrose/Water 1 100ml.bag @ 100 mls/hr IVPB Q1H [facility] Rx#: [id number] Piperacillin-Tazobactam 3 100 100 .375 gm In Sodium Chloride 0.9% 100 ml @ 25 mls/hr IVPB Q8H [facility] Rx#: [id number] Potassium Chloride 10 meq 200 In Water For Injection 1 100ml.bag @ 100 mls/hr IVPB Q1H [facility] Rx#: [id number] Pressure Bag (0.9 Sodium 3 Chl) Intake, IV Titration 723.704 253.338 40 Amount Amiodarone 450 mg In 213.338 Dextrose 5% in Water 250 ml @ 0.5 MG/MIN 16.667 mls/hr IV .Q15H [facility] Rx#: [id number] Calcium Gluconate in NaCl 100 1 gm In Saline 1 100ml. bag @ 100 mls/hr IVPB ONCE ONE Rx#:[id number] Mvi, Adult No.4 with Vit 40 K 10 ml Trace (Conc-1Ml/ Dose) 1 ml Sodium Acetate 30 meq Potassium Chloride 40 meq Calcium Gluconate 1 gm Magnesium Sulfate gm 1 gm Potassium Phosphate 12 mmol In Amino Acid 5%-D15w 1,000 ml @ 40 mls/hr IV .Q24H [facility] Rx#:[id number] Potassium Chloride 20 meq 200 In Water For Injection 1 100ml.bag @ 50 mls/hr IVPB Q2H [facility] Rx#: [id number] Sodium Acetate 30 meq 240 Potassium Acetate 20 meq Magnesium Sulfate gm 1 gm Calcium Gluconate 1 gm Mvi, Adult No.4 with Vit K 10 ml Trace (Conc-1Ml/ Dose) 1 ml In Amino Acid 5%-D15w 1,000 ml @ 30 mls /hr IV .Q24H [facility] Rx#: [id number] Sodium Acetate 30 meq 80 40 Potassium Acetate 20 meq Magnesium Sulfate gm 1 gm Calcium Gluconate 1 gm Mvi, Adult No.4 with Vit K 10 ml Trace (Conc-1Ml/ Dose) 1 ml In Amino Acid 5%-D15w 1,000 ml @ 40 mls /hr IV .Q24H [facility] Rx#: [id number] propofoL 1,000 mg In 103.704 Empty Bag 1 bag @ 15 MCG/ KG/MIN 5.544 mls/hr IV . Q18H3M [facility] Rx#:[id number] Output: Drainage 160 220 60 Lower Right Abdomen 140 20 Medial Abdomen 20 200 60 Urine 490 1140 40 Other: Voiding Method Indwelling Catheter Indwelling Catheter ABP, PAP, CO, CI - Last Documented Arterial Blood Pressure 90/59 - Labs CBC & Chem 7: 04/15/24 02:58 04/15/24 02:58 Labs: Abnormal Lab Results - Last 24 Hours (Table) 04/14/24 04/14/24 04/14/24 Range/Units 05:59 12:01 17:43 WBC (3.8-10.6) k/uL RBC (3.80-5.40) m/uL Hgb (11.4-16.0) gm/dL Hct (34.0-46.0) % Chloride (98-107) mmol/L BUN (7-17) mg/dL Creatinine (0.52-1.04) mg/dL Glucose (74-99) mg/dL POC Glucose (mg/dL) 198 H 179 H (70-110) mg/dL Hemoglobin A1c 6.3 H (<=6.0) % Calcium (8.4-10.2) mg/dL Phosphorus (2.5-4.5) mg/dL 04/14/24 04/15/24 04/15/24 Range/Units 23:45 02:58 02:58 WBC 18.1 H (3.8-10.6) k/uL RBC 2.90 L (3.80-5.40) m/uL Hgb 8.9 L (11.4-16.0) gm/dL Hct 27.4 L (34.0-46.0) % Chloride 114 H (98-107) mmol/L BUN 46 H (7-17) mg/dL Creatinine 1.36 H (0.52-1.04) mg/dL Glucose 145 H (74-99) mg/dL POC Glucose (mg/dL) 166 H (70-110) mg/dL Hemoglobin A1c (<=6.0) % Calcium 7.2 L (8.4-10.2) mg/dL Phosphorus 1.9 L (2.5-4.5) mg/dL 04/15/24 Range/Units 06:10 WBC (3.8-10.6) k/uL RBC (3.80-5.40) m/uL Hgb (11.4-16.0) gm/dL Hct (34.0-46.0) % Chloride (98-107) mmol/L BUN (7-17) mg/dL Creatinine (0.52-1.04) mg/dL Glucose (74-99) mg/dL POC Glucose (mg/dL) 170 H (70-110) mg/dL Hemoglobin A1c (<=6.0) % Calcium (8.4-10.2) mg/dL Phosphorus (2.5-4.5) mg/dL Microbiology - Last 24 Hours (Table) 04/12/24 16:05 Anaerobic Culture - Preliminary Other - Other 04/12/24 16:05 Gram Stain - Final Other - Other Wound Culture - Final 04/08/24 23:00 Blood Culture - Final Blood 04/08/24 22:45 Blood Culture - Final Blood Assessment and Plan Plan: Assessment: 1. Acute kidney injury secondary to hemodynamic ATN. Renal function better. Creatinine 1.36 today. Unknown baseline renal function. UA fairly benign. No hydronephrosis noted on kidney ultrasound. 2. A-fib with RVR maintained on amiodarone drip. 3. Perforated duodenal ulcer status post exploratory laparotomy with modified Lee patch April 09, 2024 with reexploration on April 12, 2024. Surgery following. 4. Metabolic acidosis secondary to acute kidney injury. Stable. 5. Hypophosphatemia from poor intake. Plan: Maintain TPN per surgery. Phosphorus being replaced. Continue to monitor renal function and urine output. Avoid nephrotoxins
[2024-04-15] MEDS: SODIUM PHOSPHATE 15 MMOL in DEXTROSE 5% IN WATER 250 ML IVPB ONE (09:24)
--- NOTE | 2024-04-15 10:35 | P.PN ---
Subjective Progress Note Date: 04/15/24 This is an 88-year-old female patient who is somewhat poor historian who we are asked to see in the intensive care unit for further evaluation of atrial fibrillation with rapid ventricular response. The patient lives by herself. She has some underlying dementia. She was brought by her neighbor because she fell 2 days ago and has not been feeling well. She has been experiencing intermittent episodes of confusion and she was also having failure to thrive. Beside that she was feeling nauseated and experiencing intermittent episodes of abdominal discomfort. She underwent further investigation in the emergency department including an EKG showing sinus mechanism with nonspecific ST and T wave abnormalities and also she underwent a CT scan of the abdomen and that revealed perforated bowel. The patient underwent surgery yesterday and this is her postoperation day #1. 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 The patient is extremely poor historian and she has difficulty hearing. Subsequently the patient was started on Cardizem IV and amiodarone IV and converted to normal sinus mechanism and has been maintaining normal sinus mechanism with heart rate in the 50s as well as the 60s. Currently she is not on any IV heparin or anticoagulation. We are going to find out from the surgical team when it is safe to start the patient on IV heparin at this point. Apparently she is n.p.o. and cannot take any oral medication and for that reason she is on the IV AV georgie harvinder agents. An echocardiogram was ordered and still pending. Further investigation also was performed including creatinine came to be at 2.5 but the patient has not been able to urinate and there is a component of obstructive uropathy and currently urology service is on the case to place a Walters catheter. Beside that her hemoglobin has been around 10.5. The examination is remarkable for regular rhythm with distant heart sounds and systolic murmur at the right upper sternal border with diminished breathing sounds bilaterally and no edema was noted in the lower extremities 04/12 patient seen and examined. Patient's creatinine has improved to 1.2. She denies any chest pain or pressure. Denies any significant shortness breath. Has some vague abdominal pain. Concern of continued leak from upper GI study. Echocardiogram performed which shows preserved EF without significant valvular disease. Has been on IV amiodarone as well as IV Cardizem drip secondary to patient being nothing by mouth. 04/13 Seen and examined. Remains intubated and sedated. Recievieng TPN, NPO on amio and Cardizem drip. Hgb dropped however may be dilutional. Did have decreased urine outpt and therefore was given dose of Lasix. 04/14 Heart appearing however denying any chest pain or pressure or significant abdom inal pain. Still nothing by mouth and therefore receiving IV amiodarone. Remains in normal sinus rhythm. CVP was checked yesterday with low reading in the 2-3 range. Still receiving TPN 04/15 Patient seen and examined. Patient remains in the intensive care unit. Patient remains NPO. Blood pressure 145/63, heart rate in the 70s, pulse ox 95% on room air. Patient has been afebrile. Telemetry is sinus rhythm. Patient remains on IV amiodarone. Patient maintained on TPN as well. Repeat blood work reveals WBC 18, hemoglobin 8.9. Sodium 140, potassium 3.9, BUN 46 creatinine 1.36. Patient complains of left arm swelling which is being elevated. PHYSICAL EXAMINATION Vital signs reviewed. CONSTITUTIONAL: No apparent distress. HEENT: Head is normocephalic. Pupils are equal, round. Sclerae anicteric. Mucous membranes of the mouth are moist. No JVD. No carotid bruit. CHEST EXAMINATION: Lungs are clear to auscultation. No chest wall tenderness is noted on palpation or with deep breathing. HEART EXAMINATION: Regular rate and rhythm. S1, S2 heard. No murmurs, gallops or rub. ABDOMEN: Soft, nontender. Positive bowel sounds. EXTREMITIES: 2+ peripheral pulses, no lower extremity edema and no calf tenderness. NEUROLOGIC EXAMINATION: Patient is awake, alert and oriented x3. Assessment Status post abdominal surgery, perforated bowel with continued bowel leak Parosyxmal atrial fibrillation new onset. Currently the patient is in sinus mechanism. Obstructive uropathy JESÚS, improving Multiple comorbid conditions Anemia with drop in hgb Plan Continue with amiodarone IV given she is nothing by mouth Not a good anticoagulation candidate currently with concern of continued leak and decrease in Hgb. Echo showing preserved EF. Continue her current supportive care CVP is low and therefore consider increasing IV fluids however we will defer to nephrology with increasing creatinine To rule out DVT Further recommendations to follow. Nurse practitioner note has been reviewed, I agree with documented findings and plan of care. Patient was seen and examined. Objective - Vital Signs Vital signs: Vital Signs Temp 98.8 F 04/15/24 04:00 Pulse 74 04/15/24 08:12 Resp 14 04/15/24 08:00 BP 145/63 04/15/24 08:00 Pulse Ox 95 04/15/24 08:02 FiO2 30 04/14/24 09:51 Intake & Output 04/14/24 04/15/24 04/15/24 18:59 06:59 18:59 Intake Total 1811.704 813.338 60 Output Total 650 1360 100 Balance 1161.704 -546.662 -40 Weight 65.1 kg 65.907 kg Intake: IV 1088 560 20 0.9 NS 60 260 20 Fluconazole in NaCl,Iso- 50 Osm 100 mg In Saline 1 50ml.bag @ 50 mls/hr IVPB DAILY [facility] Rx#:[id number] Lactated Ringers 1,000 ml 675 @ 75 mls/hr IV .[id number] [facility] Rx#:[id number] Magnesium Sulfate-D5w Pmx 200 1 gm In Dextrose/Water 1 100ml.bag @ 100 mls/hr IVPB Q1H [facility] Rx#: [id number] Piperacillin-Tazobactam 3 100 100 .375 gm In Sodium Chloride 0.9% 100 ml @ 25 mls/hr IVPB Q8H [facility] Rx#: [id number] Potassium Chloride 10 meq 200 In Water For Injection 1 100ml.bag @ 100 mls/hr IVPB Q1H [facility] Rx#: [id number] Pressure Bag (0.9 Sodium 3 Chl) Intake, IV Titration 723.704 253.338 40 Amount Amiodarone 450 mg In 213.338 Dextrose 5% in Water 250 ml @ 0.5 MG/MIN 16.667 mls/hr IV .Q15H [facility] Rx#: [id number] Calcium Gluconate in NaCl 100 1 gm In Saline 1 100ml. bag @ 100 mls/hr IVPB ONCE ONE Rx#:[id number] Mvi, Adult No.4 with Vit 40 K 10 ml Trace (Conc-1Ml/ Dose) 1 ml Sodium Acetate 30 meq Potassium Chloride 40 meq Calcium Gluconate 1 gm Magnesium Sulfate gm 1 gm Potassium Phosphate 12 mmol In Amino Acid 5%-D15w 1,000 ml @ 40 mls/hr IV .Q24H [facility] Rx#:[id number] Potassium Chloride 20 meq 200 In Water For Injection 1 100ml.bag @ 50 mls/hr IVPB Q2H [facility] Rx#: [id number] Sodium Acetate 30 meq 240 Potassium Acetate 20 meq Magnesium Sulfate gm 1 gm Calcium Gluconate 1 gm Mvi, Adult No.4 with Vit K 10 ml Trace (Conc-1Ml/ Dose) 1 ml In Amino Acid 5%-D15w 1,000 ml @ 30 mls /hr IV .Q24H [facility] Rx#: [id number] Sodium Acetate 30 meq 80 40 Potassium Acetate 20 meq Magnesium Sulfate gm 1 gm Calcium Gluconate 1 gm Mvi, Adult No.4 with Vit K 10 ml Trace (Conc-1Ml/ Dose) 1 ml In Amino Acid 5%-D15w 1,000 ml @ 40 mls /hr IV .Q24H [facility] Rx#: [id number] propofoL 1,000 mg In 103.704 Empty Bag 1 bag @ 15 MCG/ KG/MIN 5.544 mls/hr IV . Q18H3M [facility] Rx#:[id number] Output: Drainage 160 220 60 Lower Right Abdomen 140 20 Medial Abdomen 20 200 60 Urine 490 1140 40 Other: Voiding Method Indwelling Catheter Indwelling Catheter ABP, PAP, CO, CI - Last Documented Arterial Blood Pressure 90/59 - Labs CBC & Chem 7: 04/15/24 02:58 04/15/24 02:58 Labs: Abnormal Lab Results - Last 24 Hours (Table) 04/14/24 04/14/24 04/14/24 Range/Units 05:59 12:01 17:43 WBC (3.8-10.6) k/uL RBC (3.80-5.40) m/uL Hgb (11.4-16.0) gm/dL Hct (34.0-46.0) % Chloride (98-107) mmol/L BUN (7-17) mg/dL Creatinine (0.52-1.04) mg/dL Glucose (74-99) mg/dL POC Glucose (mg/dL) 198 H 179 H (70-110) mg/dL Hemoglobin A1c 6.3 H (<=6.0) % Calcium (8.4-10.2) mg/dL Phosphorus (2.5-4.5) mg/dL 04/14/24 04/15/24 04/15/24 Range/Units 23:45 02:58 02:58 WBC 18.1 H (3.8-10.6) k/uL RBC 2.90 L (3.80-5.40) m/uL Hgb 8.9 L (11.4-16.0) gm/dL Hct 27.4 L (34.0-46.0) % Chloride 114 H (98-107) mmol/L BUN 46 H (7-17) mg/dL Creatinine 1.36 H (0.52-1.04) mg/dL Glucose 145 H (74-99) mg/dL POC Glucose (mg/dL) 166 H (70-110) mg/dL Hemoglobin A1c (<=6.0) % Calcium 7.2 L (8.4-10.2) mg/dL Phosphorus 1.9 L (2.5-4.5) mg/dL 04/15/24 Range/Units 06:10 WBC (3.8-10.6) k/uL RBC (3.80-5.40) m/uL Hgb (11.4-16.0) gm/dL Hct (34.0-46.0) % Chloride (98-107) mmol/L BUN (7-17) mg/dL Creatinine (0.52-1.04) mg/dL Glucose (74-99) mg/dL POC Glucose (mg/dL) 170 H (70-110) mg/dL Hemoglobin A1c (<=6.0) % Calcium (8.4-10.2) mg/dL Phosphorus (2.5-4.5) mg/dL Microbiology - Last 24 Hours (Table) 04/12/24 16:05 Anaerobic Culture - Preliminary Other - Other 04/12/24 16:05 Gram Stain - Final Other - Other Wound Culture - Final 04/08/24 23:00 Blood Culture - Final Blood 04/08/24 22:45 Blood Culture - Final Blood
--- NOTE | 2024-04-15 10:59 | P.PN ---
Subjective Progress Note Date: 04/15/24 Principal diagnosis: Perforated viscus. This is an 88-year-old female, recent history of fall about 2 weeks ago, sustained bruising to her left ribs. Patient was brought in yesterday to the ER mostly with symptoms of weakness, failure to thrive, poor oral intake, and suspected dehydration. Patient was also complaining of cough and shortness of breath, no fever no chills, no nausea no vomiting. In addition the patient had no bowel movement for the last 4 days. Apparently the patient has been experiencing intermittent episodes of confusion for the last 1 year. Workup in the ER included a CT of the abdomen and pelvis, it showed pneumoperitoneum and free fluid. Patient was felt that she has ruptured viscus, she was seen by surgery and she underwent exploratory laparotomy for her pneumoperitoneum, and she was found to have perforated duodenal ulcer. Patient had modified Lee patch and postoperatively the patient was extubated nonetheless she was admitted to the ICU, and this consult was initiated. I saw the patient in the ICU this morning, she is on 4 L nasal cannula, does not seem to be in any distress. She is already on Zosyn, and I added Diflucan. She is on LR at 125 cc/h. Her WBC count is 28.6, electrolytes are normal hemoglobin is 10.7 BUN is 97 creatinine down to 2.45 from 3.27 yesterday. Progress note dated April 10, 2024. 88-year-old female seen yesterday in consultation. She was admitted on April 08, with confusion and weakness. The patient had a repair of a perforated duodenal ulcer on April 09. Today is postop day #1. She is currently seen today in room 261. She is currently on 6 L of oxygen by nasal cannula. She has an NG tube in place. She is getting lactated Ringer's at 125 cc an hour. For atrial fibrillation with a rapid ventricular response, she was started on Cardizem drip at 5 mg an hour, and amiodarone 0.5 mg/min. No new labs today other than a glucose of 154. The labs from yesterday are reviewed. White count was 28.6. Hemoglobin 10.7, platelet count was normal. BUN and creatinine were 97 and 2.45. Chest x-ray suggested bilateral pleural effusions. Progress note dated April 11, 2024. 88-year-old female seen today in room 261. The patient was admitted on April 08, with confusion and weakness. The patient was discovered to have a perforated duodenal ulcer, and had a surgical repair performed on April 09. Today is postop day #2. The patient is currently without distress. She is on room air. NG tube remains in place. She is getting lactated Ringer's at 75 cc an hour. Because of atrial fibrillation and RVR, she continues on amiodarone 0.5 mg/min, and Cardizem at 5 mg an hour. Lab data includes a white count 34.6, hemoglobin 9.1, hematocrit 36.6, and a platelet count 442,000. Sodium 143, potassium 4.1, chlorides 113, CO2 23, BUN 71, creatinine 1.64. Glucose is 134. Albumin is 2.3. Blood cultures are currently negative. No chest x-ray today has been ordered. Progress note dated April 12, 2024. This is an 88-year-old female who is seen in room 261. The patient was admitted back on April 08, with confusion and weakness. She was discovered to have a perforated duodenal ulcer, and had surgical repair performed on April 09. Today is postoperative day #3. The patient is going to have a upper GI study today. She is getting lactated Ringer's at 75 cc an hour, 3 L of oxygen by nasal cannula, Cardizem at 5 mg an hour, and amiodarone at 0.5 mg/min. White count was 37.4, hemoglobin 11.6, hematocrit 38.5, and platelet count was normal. Sodium 145, potassium 3.2, chloride 115, CO2 24, BUN 52, creatinine 1.26. Glucose 123. Calcium 8.2. BUN 2.2. Blood cultures are currently negative. The patient's chest x-ray is stable, with some basilar atelectasis on the right. Upper GI study showed a leak, at the site of patch placement, in the duodenal bulb. Progress note dated April 13, 2024. 88-year-old female seen today in room 261. The patient is postop day #1, status post Billroth II gastrectomy, and Myles-en-Y reconstruction. The patient is currently on the ventilator. Ventilator settings include volume assist-control, rate 16, tidal volume 350, FiO2 40%, PEEP of 5. Blood gases show pO2 128, pCO2 34, pH is 7.43. The blood gases were done on 50% FiO2. The patient is on lactated Ringer's at 75 cc an hour, amiodarone 0.5 mg/min, Cardizem at 5 mg/h, and propofol, is restarted at a low rate. Current labs include a white count 34.8, hemoglobin 9.5, hematocrit 32.2, and a platelet count of 325,000. Sodium 141, potassium 4, chloride 114, CO2 21, BUN 48, creatinine 1.51. Glucose is 133. Calcium is 7. Blood cultures are negative. Chest x-ray shows in addition to endotracheal tube, and central venous line, blunting of the costophrenic angles. Progress note dated April 14, 2024. 88-year-old female seen today in room 261. She is postop day #2, status post Billroth II gastrectomy and Myles-en-Y reconstruction. The patient is on the ventilator. She was maintained on the ventilator overnight. Currently, the patient is on volume assist-control, rate 16, tidal volume 350, FiO2 30%, PEEP of 5. Blood gases show pO2 of 148, pCO2 33, pH is 7.42. Blood gases were done on 40%. The patient continues on amiodarone at 0.5 mg/min, lactated Ringer's at 75 cc an hour, propofol at 35 mcg/kg/min, and TPN at 30 cc an hour, to be increased to 55 cc an hour. Current white count is 25.2, hemoglobin 9.5, hematocrit 35.5, platelet count 362,000. Sodium 142, potassium 3.3, chlorides 112, CO2 25, BUN 50, creatinine 1.83. Albumin level was 1.9. Chest x-ray is largely unchanged. Progress note dated April 15, 2024. The patient is seen again in room 261. The patient was successfully extubated yesterday, April 14. She is currently on room air. She is receiving a saline IV at KVO, and TPN at 40 cc an hour. Current labs include a white count 18.1, hemoglobin 8.9, hematocrit 27.4, and a platelet count of 334,000. Sodium 140, potassium 3.9, chlorides 114, CO2 23, BUN 46, and creatinine 1.36. Glucose is 170. Calcium is 7.2. Phosphorus is 1.9. Magnesium is 2.0. Objective - Vital Signs Vital signs: Vital Signs Temp 98.8 F 04/15/24 04:00 Pulse 75 04/15/24 10:00 Resp 19 04/15/24 10:00 BP 141/61 04/15/24 10:00 Pulse Ox 94 L 04/15/24 10:00 FiO2 30 04/14/24 09:51 Intake & Output 04/14/24 04/15/24 04/15/24 18:59 06:59 18:59 Intake Total 1811.704 813.338 335 Output Total 650 1360 240 Balance 1161.704 -546.662 95 Weight 65.1 kg 65.907 kg Intake: IV 1088 560 90 0.9 NS 60 260 40 Fluconazole in NaCl,Iso- 50 50 Osm 100 mg In Saline 1 50ml.bag @ 50 mls/hr IVPB DAILY [facility] Rx#:[id number] Lactated Ringers 1,000 ml 675 @ 75 mls/hr IV .[id number] [facility] Rx#:[id number] Magnesium Sulfate-D5w Pmx 200 1 gm In Dextrose/Water 1 100ml.bag @ 100 mls/hr IVPB Q1H [facility] Rx#: [id number] Piperacillin-Tazobactam 3 100 100 .375 gm In Sodium Chloride 0.9% 100 ml @ 25 mls/hr IVPB Q8H [facility] Rx#: [id number] Potassium Chloride 10 meq 200 In Water For Injection 1 100ml.bag @ 100 mls/hr IVPB Q1H [facility] Rx#: [id number] Pressure Bag (0.9 Sodium 3 Chl) Intake, IV Titration 723.704 253.338 245 Amount Amiodarone 450 mg In 213.338 Dextrose 5% in Water 250 ml @ 0.5 MG/MIN 16.667 mls/hr IV .Q15H [facility] Rx#: [id number] Calcium Gluconate in NaCl 100 1 gm In Saline 1 100ml. bag @ 100 mls/hr IVPB ONCE ONE Rx#:[id number] Mvi, Adult No.4 with Vit 120 K 10 ml Trace (Conc-1Ml/ Dose) 1 ml Sodium Acetate 30 meq Potassium Chloride 40 meq Calcium Gluconate 1 gm Magnesium Sulfate gm 1 gm Potassium Phosphate 12 mmol In Amino Acid 5%-D15w 1,000 ml @ 40 mls/hr IV .Q24H [facility] Rx#:[id number] Potassium Chloride 20 meq 200 In Water For Injection 1 100ml.bag @ 50 mls/hr IVPB Q2H [facility] Rx#: [id number] Sodium Acetate 30 meq 240 Potassium Acetate 20 meq Magnesium Sulfate gm 1 gm Calcium Gluconate 1 gm Mvi, Adult No.4 with Vit K 10 ml Trace (Conc-1Ml/ Dose) 1 ml In Amino Acid 5%-D15w 1,000 ml @ 30 mls /hr IV .Q24H [facility] Rx#: [id number] Sodium Acetate 30 meq 80 40 Potassium Acetate 20 meq Magnesium Sulfate gm 1 gm Calcium Gluconate 1 gm Mvi, Adult No.4 with Vit K 10 ml Trace (Conc-1Ml/ Dose) 1 ml In Amino Acid 5%-D15w 1,000 ml @ 40 mls /hr IV .Q24H [facility] Rx#: [id number] Sodium Phosphate 15 mmol 125 In Dextrose 5% in Water 250 ml @ 127.5 mls/hr IVPB ONCE ONE Rx#: [id number] propofoL 1,000 mg In 103.704 Empty Bag 1 bag @ 15 MCG/ KG/MIN 5.544 mls/hr IV . Q18H3M [facility] Rx#:[id number] Output: Drainage 160 220 130 Lower Right Abdomen 140 20 10 Medial Abdomen 20 200 120 Urine 490 1140 110 Other: Voiding Method Indwelling Catheter Indwelling Catheter ABP, PAP, CO, CI - Last Documented Arterial Blood Pressure 90/59 - Exam No acute distress, awake and alert, currently on room air. HEENT examination is grossly unremarkable. Neck supple. Full range of motion. No adenopathy thyromegaly or neck vein distention. Cardiovascular examination reveals regular rhythm rate. S1-S2 normal. No S3 or S4. No discernible murmur noted. Heart rate is 75 bpm. Lungs reveal rhonchi. No wheezes or crackles. Breath sounds equal. Saturations are 95 %. Abdomen soft, without bowel sounds. Abdominal incision is dressed. Extremities are intact. No cyanosis clubbing or edema. Skin is without rash or lesion. Neurologic examination is brief but nonfocal. - Labs CBC & Chem 7: 04/15/24 02:58 04/15/24 02:58 Labs: Abnormal Lab Results - Last 24 Hours (Table) 04/14/24 04/14/24 04/14/24 Range/Units 05:59 12:01 17:43 WBC (3.8-10.6) k/uL RBC (3.80-5.40) m/uL Hgb (11.4-16.0) gm/dL Hct (34.0-46.0) % Chloride (98-107) mmol/L BUN (7-17) mg/dL Creatinine (0.52-1.04) mg/dL Glucose (74-99) mg/dL POC Glucose (mg/dL) 198 H 179 H (70-110) mg/dL Hemoglobin A1c 6.3 H (<=6.0) % Calcium (8.4-10.2) mg/dL Phosphorus (2.5-4.5) mg/dL 04/14/24 04/15/24 04/15/24 Range/Units 23:45 02:58 02:58 WBC 18.1 H (3.8-10.6) k/uL RBC 2.90 L (3.80-5.40) m/uL Hgb 8.9 L (11.4-16.0) gm/dL Hct 27.4 L (34.0-46.0) % Chloride 114 H (98-107) mmol/L BUN 46 H (7-17) mg/dL Creatinine 1.36 H (0.52-1.04) mg/dL Glucose 145 H (74-99) mg/dL POC Glucose (mg/dL) 166 H (70-110) mg/dL Hemoglobin A1c (<=6.0) % Calcium 7.2 L (8.4-10.2) mg/dL Phosphorus 1.9 L (2.5-4.5) mg/dL 04/15/24 Range/Units 06:10 WBC (3.8-10.6) k/uL RBC (3.80-5.40) m/uL Hgb (11.4-16.0) gm/dL Hct (34.0-46.0) % Chloride (98-107) mmol/L BUN (7-17) mg/dL Creatinine (0.52-1.04) mg/dL Glucose (74-99) mg/dL POC Glucose (mg/dL) 170 H (70-110) mg/dL Hemoglobin A1c (<=6.0) % Calcium (8.4-10.2) mg/dL Phosphorus (2.5-4.5) mg/dL Microbiology - Last 24 Hours (Table) 04/12/24 16:05 Anaerobic Culture - Preliminary Other - Other 04/12/24 16:05 Gram Stain - Final Other - Other Wound Culture - Final 04/08/24 23:00 Blood Culture - Final Blood 04/08/24 22:45 Blood Culture - Final Blood Assessment and Plan Assessment: Postoperative day #6, S/P exploratory laparotomy, repair of perforated duodenal ulcer, and application of a modified Lee patch. Postoperative day #3, status post Billroth II gastrectomy, and Myles-en-Y reconstruction. S/P successful extubation, April 14, 2024. Upper GI series, showing leak, at the site of the modified Lee patch. Acute abdominal sepsis. Acute atrial fibrillation, with rapid ventricular response. History of splenic hematoma, without rupture. Acute dehydration with acute kidney injury. Nonanion gap metabolic acidosis. Leukocytosis, secondary to sepsis. Hypovolemic hyponatremia, recovered. General medical debility. Plan: Plan dated April 10, 2024. The patient had surgery done yesterday, she had an exploratory laparotomy, and repair of a perforated duodenal ulcer. She is currently on 6 L nasal cannula. She did develop some atrial fibrillation with RVR overnight. She was placed on both Cardizem drip, and amiodarone drip. Labs, x-rays, and medications are all reviewed. We will continue to follow the patient, make recommendations along the way. Prognosis is guarded. Plan dated April 11, 2024. The patient appears to be doing relatively well. She still has an NG tube in place. She still NPO. She continues on Cardizem, and amiodarone, for atrial fibrillation with RVR. Labs, x-rays, and medications are reviewed. The patient remains on room air. NG tube remains in place. She is getting lactated Ringer's at 75 cc an hour. We will continue to follow make recommendations along the way. The patient's overall prognosis remains very guarded.\ Plan dated April 12, 2024. The patient's upper GI series, showed a leak, at the site of the modified Lee patch. The patient's labs, x-rays, and medications are all reviewed. The patient is currently on 3 L of oxygen. We will continue to follow make recommendations along the way. In addition, the patient continues on Cardizem at 5 mg an hour, and amiodarone at 0.5 mg/min, for atrial fibrillation/RVR. The patient is also getting lactated Ringer's at 75 cc an hour. We will continue to follow make recommendations along the way. Prognosis is guarded. Plan dated April 13, 2024. The patient's upper GI series showed a leak at the site of the modified Lee patch. The patient is postoperative day #1, status post Billroth II gastrectomy, and Myles-en-Y reconstruction. The patient is currently on the mechanical ventilator, and will stay there overnight. She has a endotracheal tube in place, and an orogastric tube in place as well. She continues on amiodarone at 0.5 mg/min, Cardizem 5 mg/h. Propofol was restarted. She is getting lactated Ringer's at 75 cc an hour. Labs, x-rays, and medications are reviewed. No additional recommendations are made at this time. We will continu e to follow, as prognosis is guarded. Plan dated April 14, 2024. The patient appears to be doing well. In fact, the patient will have a daily interruption of sedation, with a spontaneous breathing trial. The patient may benefit from extubation. The patient does continue on Zosyn. Labs, x-rays, and medications are reviewed. The patient also continues on amiodarone at 0.5 mg/min. Propofol is on hold. TPN is running at 30 cc an hour with a goal of 55. We will continue to follow and make recommendations along the way. Prognosis is guarded. No additional recommendations at this time. Plan dated April 15, 2024. The patient was vented yesterday, and, was successfully weaned and extubated yesterday. She had excellent weaning parameters, including a positive cuff leak. Labs, x-rays, medications are reviewed. The patient is currently on TPN at 40 cc an hour. She is not requiring any supplemental oxygen. The patient is also getting on saline IV at 10 cc an hour. Labs, x-rays, and medications are reviewed. Additional recommendations and suggestions are forthcoming. We will continue to follow make recommendations. Prognosis is guarded. Time with Patient: Greater than 30
[2024-04-15 12:02] LABS: Glucose,Whole Blood 210 mg/dL (70-110)
[2024-04-15] MEDS: MVI, ADULT NO.4 WITH VIT K 10 ML, TRACE (CONC-1ML/DOSE) 1 ML, SODIUM ACETATE 30 MEQ, PO... IV SCH (13:47)
--- NOTE | 2024-04-15 14:10 | P.PN ---
Subjective Progress Note Date: 04/15/24 This is an 88-year-old female, recent history of fall about 2 weeks ago, sustained bruising to her left ribs. Patient was brought in yesterday to the ER mostly with symptoms of weakness, failure to thrive, poor oral intake, and suspected dehydration. Patient was also complaining of cough and shortness of breath, no fever no chills, no nausea no vomiting. In addition the patient had no bowel movement for the last 4 days. Apparently the patient has been experiencing intermittent episodes of confusion for the last 1 year. Workup in the ER included a CT of the abdomen and pelvis, it showed pneumoperitoneum and free fluid. Patient was felt that she has ruptured viscus, she was seen by surgery and she underwent exploratory laparotomy for her pneumoperitoneum, and she was found to have perforated duodenal ulcer. Patient had modified Lee patch and postoperatively the patient was extubated nonetheless she was admitted to the ICU, and this consult was initiated. I saw the patient in the ICU this morning, she is on 4 L nasal cannula, does not seem to be in any distress. She is already on Zosyn, and I added Diflucan. She is on LR at 125 cc/h. Her WBC count is 28.6, electrolytes are normal hemoglobin is 10.7 BUN is 97 creatinine down to 2.45 from 3.27 .The patient is status post Billroth II gastrectomy, and Myles-en-Y reconstruction 04/15. Patient seen and examined REVIEW OF SYSTEMS: CONSTITUTIONAL: No fever, no malaise,. CARDIOVASCULAR: No chest pain, no palpitations, no syncope. PULMONARY: No shortness of breath, no cough, GASTROINTESTINAL: No diarrhea, no nausea, no vomiting, no abdominal pain. NEUROLOGICAL: No headaches, no weakness, PHYSICAL EXAMINATION: GENERAL: The patient is alert alert, chronically ill looking HEENT: Pupils are round and equally reacting to light. EOMI. No scleral icterus. No conjunctival pallor. Normocephalic, atraumatic. No pharyngeal erythema. No thyromegaly. CARDIOVASCULAR: S1 and S2 present. No murmurs, rubs, or gallops. PULMONARY: Chest is clear to auscultation, no wheezing or crackles. ABDOMEN: Soft, nontender, positive bowel sounds MUSCULOSKELETAL: No joint swelling or deformity. EXTREMITIES: No cyanosis, clubbing, or pedal edema. NEUROLOGICAL: Gross neurological examination did not reveal any focal deficits. SKIN: No rashes. Assessment and plan S/P exploratory laparotomy, repair of perforated duodenal ulcer, and application of a modified Lee patch. status post Billroth II gastrectomy, and Myles-en-Y reconstruction. Upper GI series, showing leak, at the site of the modified Lee patch. acute abdominal sepsis. Acute atrial fibrillation, with rapid ventricular response. Acute dehydration with acute kidney injury. Nonanion gap metabolic acidosis. Leukocytosis, secondary to sepsis. Hypovolemic hyponatremia, Monitor vital signs Monitor CBC Monitor CMP Continue telemetry monitoring Encourage use of incentive spirometer Continue oxygen supplementation Continue TPN Continue IV Zosyn, fluconazole Continue amiodarone,Not a good anticoagulation candidate currently with concern of continued leak and decrease in Hgb Cardiology following General surgery following Critical care following Labs and medication were reviewed.. Continue same treatment. Continue with symptomatic treatment. Resume home medication. Monitor labs and vitals. DVT and GI prophylaxis. Further recommendations as per clinical course of the patient Dictation was produced using [email or web address] dictation software. please excuse any grammatical, word or spelling errors. Objective - Vital Signs Vital signs: Vital Signs Temp 98.7 F 04/15/24 13:00 Pulse 89 04/15/24 13:00 Resp 23 04/15/24 13:00 BP 152/66 04/15/24 13:00 Pulse Ox 93 L 04/15/24 13:00 FiO2 30 04/14/24 09:51 Intake & Output 04/14/24 04/15/24 04/15/24 18:59 06:59 18:59 Intake Total 1811.704 813.338 640 Output Total 650 1360 480 Balance 1161.704 -546.662 160 Weight 65.1 kg 65.907 kg Intake: IV 1088 560 150 0.9 NS 60 260 100 Fluconazole in NaCl,Iso- 50 50 Osm 100 mg In Saline 1 50ml.bag @ 50 mls/hr IVPB DAILY [facility] Rx#:[id number] Lactated Ringers 1,000 ml 675 @ 75 mls/hr IV .[id number] [facility] Rx#:[id number] Magnesium Sulfate-D5w Pmx 200 1 gm In Dextrose/Water 1 100ml.bag @ 100 mls/hr IVPB Q1H [facility] Rx#: [id number] Piperacillin-Tazobactam 3 100 100 .375 gm In Sodium Chloride 0.9% 100 ml @ 25 mls/hr IVPB Q8H [facility] Rx#: [id number] Potassium Chloride 10 meq 200 In Water For Injection 1 100ml.bag @ 100 mls/hr IVPB Q1H [facility] Rx#: [id number] Pressure Bag (0.9 Sodium 3 Chl) Intake, IV Titration 723.704 253.338 490 Amount Amiodarone 450 mg In 213.338 Dextrose 5% in Water 250 ml @ 0.5 MG/MIN 16.667 mls/hr IV .Q15H [facility] Rx#: [id number] Calcium Gluconate in NaCl 100 1 gm In Saline 1 100ml. bag @ 100 mls/hr IVPB ONCE ONE Rx#:[id number] [facility], Adult No.4 with Vit 240 K 10 ml Trace (Conc-1Ml/ Dose) 1 ml Sodium Acetate 30 meq Potassium Chloride 40 meq Calcium Gluconate 1 gm Magnesium Sulfate gm 1 gm Potassium Phosphate 12 mmol In Amino Acid 5%-D15w 1,000 ml @ 40 mls/hr IV .Q24H [facility] Rx#:[id number] Potassium Chloride 20 meq 200 In Water For Injection 1 100ml.bag @ 50 mls/hr IVPB Q2H [facility] Rx#: [id number] Sodium Acetate 30 meq 240 Potassium Acetate 20 meq Magnesium Sulfate gm 1 gm Calcium Gluconate 1 gm [facility]vi, Adult No.4 with Vit K 10 ml Trace (Conc-1Ml/ Dose) 1 ml In Amino Acid 5%-D15w 1,000 ml @ 30 mls /hr IV .Q24H [facility] Rx#: [id number] Sodium Acetate 30 meq 80 40 Potassium Acetate 20 meq Magnesium Sulfate gm 1 gm Calcium Gluconate 1 gm [facility]vi, Adult No.4 with Vit K 10 ml Trace (Conc-1Ml/ Dose) 1 ml In Amino Acid 5%-D15w 1,000 ml @ 40 mls /hr IV .Q24H [facility] Rx#: [id number] Sodium Phosphate 15 mmol 250 In Dextrose 5% in Water 250 ml @ 127.5 mls/hr IVPB ONCE ONE Rx#: [id number] propofoL 1,000 mg In 103.704 Empty Bag 1 bag @ 15 MCG/ KG/MIN 5.544 mls/hr IV . Q18H3M [facility] Rx#:[id number] Output: Drainage 160 220 270 Lower Right Abdomen 140 20 30 Medial Abdomen 20 200 240 Urine 490 1140 210 Other: Voiding Method Indwelling Catheter Indwelling Catheter ABP, PAP, CO, CI - Last Documented Arterial Blood Pressure 90/59 - Labs CBC & Chem 7: 04/15/24 02:58 04/15/24 02:58 Labs: Abnormal Lab Results - Last 24 Hours (Table) 04/14/24 04/14/24 04/14/24 Range/Units 05:59 17:43 23:45 WBC (3.8-10.6) k/uL RBC (3.80-5.40) m/uL Hgb (11.4-16.0) gm/dL Hct (34.0-46.0) % Chloride (98-107) mmol/L BUN (7-17) mg/dL Creatinine (0.52-1.04) mg/dL Glucose (74-99) mg/dL POC Glucose (mg/dL) 179 H 166 H (70-110) mg/dL Hemoglobin A1c 6.3 H (<=6.0) % Calcium (8.4-10.2) mg/dL Phosphorus (2.5-4.5) mg/dL 04/15/24 04/15/24 04/15/24 Range/Units 02:58 02:58 06:10 WBC 18.1 H (3.8-10.6) k/uL RBC 2.90 L (3.80-5.40) m/uL Hgb 8.9 L (11.4-16.0) gm/dL Hct 27.4 L (34.0-46.0) % Chloride 114 H (98-107) mmol/L BUN 46 H (7-17) mg/dL Creatinine 1.36 H (0.52-1.04) mg/dL Glucose 145 H (74-99) mg/dL POC Glucose (mg/dL) 170 H (70-110) mg/dL Hemoglobin A1c (<=6.0) % Calcium 7.2 L (8.4-10.2) mg/dL Phosphorus 1.9 L (2.5-4.5) mg/dL 04/15/24 Range/Units 12:01 WBC (3.8-10.6) k/uL RBC (3.80-5.40) m/uL Hgb (11.4-16.0) gm/dL Hct (34.0-46.0) % Chloride (98-107) mmol/L BUN (7-17) mg/dL Creatinine (0.52-1.04) mg/dL Glucose (74-99) mg/dL POC Glucose (mg/dL) 210 H (70-110) mg/dL Hemoglobin A1c (<=6.0) % Calcium (8.4-10.2) mg/dL Phosphorus (2.5-4.5) mg/dL Microbiology - Last 24 Hours (Table) 04/12/24 16:05 Anaerobic Culture - Preliminary Other - Other 04/12/24 16:05 Gram Stain - Final Other - Other Wound Culture - Final 04/08/24 23:00 Blood Culture - Final Blood 04/08/24 22:45 Blood Culture - Final Blood
[2024-04-15] MEDS: PIPERACILLIN-TAZOBACTAM 3.375 GM in SODIUM CHLORIDE 0.9% 100 ML IVPB SCH (14:51)
--- NOTE | 2024-04-15 15:29 | P.PN ---
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 Patient white count is down to 18.1 creatinine is 1.36 blood and abdominal cultures so far negative Objective - Vital Signs Vital signs: Vital Signs Temp 98.8 F 04/15/24 04:00 Pulse 74 04/15/24 12:04 Resp 18 04/15/24 11:00 BP 144/63 04/15/24 11:00 Pulse Ox 96 04/15/24 11:00 FiO2 30 04/14/24 09:51 Intake & Output 04/14/24 04/15/24 04/15/24 18:59 06:59 18:59 Intake Total 1811.704 813.338 595 Output Total 650 1360 445 Balance 1161.704 -546.662 150 Weight 65.1 kg 65.907 kg Intake: IV 1088 560 130 0.9 NS 60 260 80 Fluconazole in NaCl,Iso- 50 50 Osm 100 mg In Saline 1 50ml.bag @ 50 mls/hr IVPB DAILY [facility] Rx#:[id number] Lactated Ringers 1,000 ml 675 @ 75 mls/hr IV .[id number] [facility] Rx#:[id number] Magnesium Sulfate-D5w Pmx 200 1 gm In Dextrose/Water 1 100ml.bag @ 100 mls/hr IVPB Q1H [facility] Rx#: [id number] Piperacillin-Tazobactam 3 100 100 .375 gm In Sodium Chloride 0.9% 100 ml @ 25 mls/hr IVPB Q8H [facility] Rx#: [id number] Potassium Chloride 10 meq 200 In Water For Injection 1 100ml.bag @ 100 mls/hr IVPB Q1H [facility] Rx#: [id number] Pressure Bag (0.9 Sodium 3 Chl) Intake, IV Titration 723.704 253.338 465 Amount Amiodarone 450 mg In 213.338 Dextrose 5% in Water 250 ml @ 0.5 MG/MIN 16.667 mls/hr IV .Q15H [facility] Rx#: [id number] Calcium Gluconate in NaCl 100 1 gm In Saline 1 100ml. bag @ 100 mls/hr IVPB ONCE ONE Rx#:[id number] Mvi, Adult No.4 with Vit 200 K 10 ml Trace (Conc-1Ml/ Dose) 1 ml Sodium Acetate 30 meq Potassium Chloride 40 meq Calcium Gluconate 1 gm Magnesium Sulfate gm 1 gm Potassium Phosphate 12 mmol In Amino Acid 5%-D15w 1,000 ml @ 40 mls/hr IV .Q24H [facility] Rx#:[id number] Potassium Chloride 20 meq 200 In Water For Injection 1 100ml.bag @ 50 mls/hr IVPB Q2H [facility] Rx#: [id number] Sodium Acetate 30 meq 240 Potassium Acetate 20 meq Magnesium Sulfate gm 1 gm Calcium Gluconate 1 gm Mvi, Adult No.4 with Vit K 10 ml Trace (Conc-1Ml/ Dose) 1 ml In Amino Acid 5%-D15w 1,000 ml @ 30 mls /hr IV .Q24H [facility] Rx#: [id number] Sodium Acetate 30 meq 80 40 Potassium Acetate 20 meq Magnesium Sulfate gm 1 gm Calcium Gluconate 1 gm Mvi, Adult No.4 with Vit K 10 ml Trace (Conc-1Ml/ Dose) 1 ml In Amino Acid 5%-D15w 1,000 ml @ 40 mls /hr IV .Q24H [facility] Rx#: [id number] Sodium Phosphate 15 mmol 265 In Dextrose 5% in Water 250 ml @ 127.5 mls/hr IVPB ONCE ONE Rx#: [id number] propofoL 1,000 mg In 103.704 Empty Bag 1 bag @ 15 MCG/ KG/MIN 5.544 mls/hr IV . Q18H3M [facility] Rx#:[id number] Output: Drainage 160 220 270 Lower Right Abdomen 140 20 30 Medial Abdomen 20 200 240 Urine 490 1140 175 Other: Voiding Method Indwelling Catheter Indwelling Catheter ABP, PAP, CO, CI - Last Documented Arterial Blood Pressure 90/59 - Exam GENERAL DESCRIPTION: An elderly female lying in bed in no distress RESPIRATORY SYSTEM: Unlabored breathing , decreased breath sounds at bases HEART: S1 S2 regular rate and rhythm , ABDOMEN: Soft , mild tenderness EXTREMITIES: No edema feet - Labs CBC & Chem 7: 04/15/24 02:58 04/15/24 02:58 Labs: Abnormal Lab Results - Last 24 Hours (Table) 04/14/24 04/14/24 04/14/24 Range/Units 05:59 17:43 23:45 WBC (3.8-10.6) k/uL RBC (3.80-5.40) m/uL Hgb (11.4-16.0) gm/dL Hct (34.0-46.0) % Chloride (98-107) mmol/L BUN (7-17) mg/dL Creatinine (0.52-1.04) mg/dL Glucose (74-99) mg/dL POC Glucose (mg/dL) 179 H 166 H (70-110) mg/dL Hemoglobin A1c 6.3 H (<=6.0) % Calcium (8.4-10.2) mg/dL Phosphorus (2.5-4.5) mg/dL 04/15/24 04/15/24 04/15/24 Range/Units 02:58 02:58 06:10 WBC 18.1 H (3.8-10.6) k/uL RBC 2.90 L (3.80-5.40) m/uL Hgb 8.9 L (11.4-16.0) gm/dL Hct 27.4 L (34.0-46.0) % Chloride 114 H (98-107) mmol/L BUN 46 H (7-17) mg/dL Creatinine 1.36 H (0.52-1.04) mg/dL Glucose 145 H (74-99) mg/dL POC Glucose (mg/dL) 170 H (70-110) mg/dL Hemoglobin A1c (<=6.0) % Calcium 7.2 L (8.4-10.2) mg/dL Phosphorus 1.9 L (2.5-4.5) mg/dL 04/15/24 Range/Units 12:01 WBC (3.8-10.6) k/uL RBC (3.80-5.40) m/uL Hgb (11.4-16.0) gm/dL Hct (34.0-46.0) % Chloride (98-107) mmol/L BUN (7-17) mg/dL Creatinine (0.52-1.04) mg/dL Glucose (74-99) mg/dL POC Glucose (mg/dL) 210 H (70-110) mg/dL Hemoglobin A1c (<=6.0) % Calcium (8.4-10.2) mg/dL Phosphorus (2.5-4.5) mg/dL Microbiology - Last 24 Hours (Table) 04/12/24 16:05 Anaerobic Culture - Preliminary Other - Other 04/12/24 16:05 Gram Stain - Final Other - Other Wound Culture - Final 04/08/24 23:00 Blood Culture - Final Blood 04/08/24 22:45 Blood Culture - Final Blood Assessment and Plan (1) Peritonitis Current Visit: Yes Status: Acute Code(s): K65.9 - PERITONITIS, UNSPECIFIED SNOMED Code(s): 92453812 (2) Leukocytosis Current Visit: Yes Status: Acute Code(s): D72.829 - ELEVATED WHITE BLOOD CELL COUNT, UNSPECIFIED SNOMED Code(s): 633500398 (3) Perforated duodenal ulcer Current Visit: Yes Status: Acute Code(s): K26.5 - CHRONIC OR UNSPECIFIED DUODENAL ULCER WITH PERFORATION SNOMED Code(s): 49169512 Plan: 1patient presented to hospital with abdominal pain constipation has been diagnosed with the pneumoperitoneum secondary to perforated duodenal ulcer status post laparotomy and repair of the perforated jejunal ulcer we will need to cover for gram-negative and yeast. 2patient upper GI that is suspicious for leak patient is status post reexploration with Billroth II gastrectomy with Myles-en-Y reconstruction along with abdominal cultures which are so far negative 3-patient is slowly clinical improvement and the patient white count is trending down currently on Zosyn and Diflucan to continue Dictation was produced using [employer] software. please excuse any grammatical, word or spelling errors. Time with Patient: Less than 30
[2024-04-15 18:10] LABS: Glucose,Whole Blood 165 mg/dL (70-110)
--- NOTE | 2024-04-15 20:50 | P.PN ---
Subjective Patient seen and evaluated at bedside. No recent bleeding,no acute event overnights. Objective - Vital Signs Vital signs: Vital Signs Temp 98.6 F 04/15/24 20:00 Pulse 77 04/15/24 20:34 Resp 17 04/15/24 20:00 BP 133/56 04/15/24 20:00 Pulse Ox 97 04/15/24 20:00 FiO2 30 04/14/24 09:51 Intake & Output 04/15/24 04/15/24 04/16/24 06:59 18:59 06:59 Intake Total 493.324 3358 60 Output Total 1360 985 85 Balance -546.662 115 -25 Weight 65.907 kg Intake: IV 560 270 20 0.9 NS 260 220 20 Fluconazole in NaCl,Iso- 50 Osm 100 mg In Saline 1 50ml.bag @ 50 mls/hr IVPB DAILY [facility] Rx#:[id number] Piperacillin-Tazobactam 3 100 .375 gm In Sodium Chloride 0.9% 100 ml @ 25 mls/hr IVPB Q8H [facility] Rx#: [id number] Potassium Chloride 10 meq 200 In Water For Injection 1 100ml.bag @ 100 mls/hr IVPB Q1H [facility] Rx#: [id number] Intake, IV Titration 253.338 830 40 Amount Amiodarone 450 mg In 213.338 Dextrose 5% in Water 250 ml @ 0.5 MG/MIN 16.667 mls/hr IV .Q15H [facility] Rx#: [id number] Mvi, Adult No.4 with Vit 480 40 K 10 ml Trace (Conc-1Ml/ Dose) 1 ml Sodium Acetate 30 meq Potassium Chloride 40 meq Calcium Gluconate 1 gm Magnesium Sulfate gm 1 gm Potassium Phosphate 12 mmol In Amino Acid 5%-D15w 1,000 ml @ 40 mls/hr IV .Q24H [facility] Rx#:[id number] Piperacillin-Tazobactam 3 100 .375 gm In Sodium Chloride 0.9% 100 ml @ 25 mls/hr IVPB Q8H [facility] Rx#: [id number] Sodium Acetate 30 meq 40 Potassium Acetate 20 meq Magnesium Sulfate gm 1 gm Calcium Gluconate 1 gm Mvi, Adult No.4 with Vit K 10 ml Trace (Conc-1Ml/ Dose) 1 ml In Amino Acid 5%-D15w 1,000 ml @ 40 mls /hr IV .Q24H [facility] Rx#: [id number] Sodium Phosphate 15 mmol 250 In Dextrose 5% in Water 250 ml @ 127.5 mls/hr IVPB ONCE ONE Rx#: [id number] Output: Drainage 220 170 50 Lower Right Abdomen 20 0 10 Medial Abdomen 200 170 40 Urine 1140 815 35 Other: Voiding Method Indwelling Catheter Indwelling Catheter Indwelling Catheter ABP, PAP, CO, CI - Last Documented Arterial Blood Pressure 90/59 - Exam gen: nad cv: rrr pul: non labored breathing abd: soft, non distended, no guarding or rebound tenderness - Labs CBC & Chem 7: 04/15/24 02:58 04/15/24 02:58 Labs: Abnormal Lab Results - Last 24 Hours (Table) 04/14/24 04/15/24 04/15/24 Range/Units 23:45 02:58 02:58 WBC 18.1 H (3.8-10.6) k/uL RBC 2.90 L (3.80-5.40) m/uL Hgb 8.9 L (11.4-16.0) gm/dL Hct 27.4 L (34.0-46.0) % Chloride 114 H (98-107) mmol/L BUN 46 H (7-17) mg/dL Creatinine 1.36 H (0.52-1.04) mg/dL Glucose 145 H (74-99) mg/dL POC Glucose (mg/dL) 166 H (70-110) mg/dL Calcium 7.2 L (8.4-10.2) mg/dL Phosphorus 1.9 L (2.5-4.5) mg/dL 04/15/24 04/15/24 04/15/24 Range/Units 06:10 12:01 18:09 WBC (3.8-10.6) k/uL RBC (3.80-5.40) m/uL Hgb (11.4-16.0) gm/dL Hct (34.0-46.0) % Chloride (98-107) mmol/L BUN (7-17) mg/dL Creatinine (0.52-1.04) mg/dL Glucose (74-99) mg/dL POC Glucose (mg/dL) 170 H 210 H 165 H (70-110) mg/dL Calcium (8.4-10.2) mg/dL Phosphorus (2.5-4.5) mg/dL Microbiology - Last 24 Hours (Table) 04/12/24 16:05 Anaerobic Culture - Preliminary Other - Other 04/12/24 16:05 Gram Stain - Final Other - Other Wound Culture - Final 04/08/24 23:00 Blood Culture - Final Blood 04/08/24 22:45 Blood Culture - Final Blood Assessment and Plan Assessment: 88 yo female w/ suspected lower GI bleed -hgb stable -family discussing hospice? -no intervention at this time. Time with Patient: Greater than 30
--- NOTE | 2024-04-15 22:23 | US ---
EXAMINATION TYPE: US venous doppler duplex UE LT DATE OF EXAM: 04/15/2024 COMPARISON: NONE CLINICAL INDICATION: Female, 88 years old with history of edema; SIDE PERFORMED: Left Right Arm: Left Arm: Negative for DVT. However, there is superficial thrombus noted within the cephalic vein ext ending from the upper forearm up to the mid arm. Extensive subcutaneous soft tissue edema. Intake Worker notes: Superficial acute clot within the mid up per arm cephalic vein to the upper forearm. IMPRESSION: 1. No evidence for DVT within the left upper extremity. 2. However, the exam is positive for SVT involving the cephalic vein from the upper forearm to the mi d humerus level. 3. Extensive subcutaneous edema.
[2024-04-15 23:11] LABS: Glucose,Whole Blood 160 mg/dL (70-110)
[2024-04-16 05:36] LABS: Glucose,Whole Blood 178 mg/dL (70-110)
[2024-04-16 06:26] LABS: African American GFR (CKD) 49 (>60 ml/min/1.73 sqM); Anion Gap 2 mmol/L; Blood Urea Nitrogen 35 mg/dL (7-17); Calcium 7.5 mg/dL (8.4-10.2); Carbon Dioxide 23 mmol/L (22-30); Chloride 114 mmol/L (98-107); Glucose 158 mg/dL (74-99); Magnesium 1.9 mg/dL (1.6-2.3); Non-African American GFR(CKD) 42 (>60 ml/min/1.73 sqM); Phosphorus 2.3 mg/dL (2.5-4.5); Potassium 3.9 mmol/L (3.5-5.1); Sodium 139 mmol/L (137-145)
[2024-04-16] MEDS: SODIUM PHOSPHATE 15 MMOL in DEXTROSE 5% IN WATER 250 ML IVPB ONE (08:54)
--- NOTE | 2024-04-16 09:00 | P.PN ---
Subjective Progress Note Date: 04/16/24 Principal diagnosis: Perforated viscus. This is an 88-year-old female, recent history of fall about 2 weeks ago, sustained bruising to her left ribs. Patient was brought in yesterday to the ER mostly with symptoms of weakness, failure to thrive, poor oral intake, and suspected dehydration. Patient was also complaining of cough and shortness of breath, no fever no chills, no nausea no vomiting. In addition the patient had no bowel movement for the last 4 days. Apparently the patient has been experiencing intermittent episodes of confusion for the last 1 year. Workup in the ER included a CT of the abdomen and pelvis, it showed pneumoperitoneum and free fluid. Patient was felt that she has ruptured viscus, she was seen by surgery and she underwent exploratory laparotomy for her pneumoperitoneum, and she was found to have perforated duodenal ulcer. Patient had modified Lee patch and postoperatively the patient was extubated nonetheless she was admitted to the ICU, and this consult was initiated. I saw the patient in the ICU this morning, she is on 4 L nasal cannula, does not seem to be in any distress. She is already on Zosyn, and I added Diflucan. She is on LR at 125 cc/h. Her WBC count is 28.6, electrolytes are normal hemoglobin is 10.7 BUN is 97 creatinine down to 2.45 from 3.27 yesterday. Progress note dated April 10, 2024. 88-year-old female seen yesterday in consultation. She was admitted on April 08, with confusion and weakness. The patient had a repair of a perforated duodenal ulcer on April 09. Today is postop day #1. She is currently seen today in room 261. She is currently on 6 L of oxygen by nasal cannula. She has an NG tube in place. She is getting lactated Ringer's at 125 cc an hour. For atrial fibrillation with a rapid ventricular response, she was started on Cardizem drip at 5 mg an hour, and amiodarone 0.5 mg/min. No new labs today other than a glucose of 154. The labs from yesterday are reviewed. White count was 28.6. Hemoglobin 10.7, platelet count was normal. BUN and creatinine were 97 and 2.45. Chest x-ray suggested bilateral pleural effusions. Progress note dated April 11, 2024. 88-year-old female seen today in room 261. The patient was admitted on April 08, with confusion and weakness. The patient was discovered to have a perforated duodenal ulcer, and had a surgical repair performed on April 09. Today is postop day #2. The patient is currently without distress. She is on room air. NG tube remains in place. She is getting lactated Ringer's at 75 cc an hour. Because of atrial fibrillation and RVR, she continues on amiodarone 0.5 mg/min, and Cardizem at 5 mg an hour. Lab data includes a white count 34.6, hemoglobin 9.1, hematocrit 36.6, and a platelet count 442,000. Sodium 143, potassium 4.1, chlorides 113, CO2 23, BUN 71, creatinine 1.64. Glucose is 134. Albumin is 2.3. Blood cultures are currently negative. No chest x-ray today has been ordered. Progress note dated April 12, 2024. This is an 88-year-old female who is seen in room 261. The patient was admitted back on April 08, with confusion and weakness. She was discovered to have a perforated duodenal ulcer, and had surgical repair performed on April 09. Today is postoperative day #3. The patient is going to have a upper GI study today. She is getting lactated Ringer's at 75 cc an hour, 3 L of oxygen by nasal cannula, Cardizem at 5 mg an hour, and amiodarone at 0.5 mg/min. White count was 37.4, hemoglobin 11.6, hematocrit 38.5, and platelet count was normal. Sodium 145, potassium 3.2, chloride 115, CO2 24, BUN 52, creatinine 1.26. Glucose 123. Calcium 8.2. BUN 2.2. Blood cultures are currently negative. The patient's chest x-ray is stable, with some basilar atelectasis on the right. Upper GI study showed a leak, at the site of patch placement, in the duodenal bulb. Progress note dated April 13, 2024. 88-year-old female seen today in room 261. The patient is postop day #1, status post Billroth II gastrectomy, and Myles-en-Y reconstruction. The patient is currently on the ventilator. Ventilator settings include volume assist-control, rate 16, tidal volume 350, FiO2 40%, PEEP of 5. Blood gases show pO2 128, pCO2 34, pH is 7.43. The blood gases were done on 50% FiO2. The patient is on lactated Ringer's at 75 cc an hour, amiodarone 0.5 mg/min, Cardizem at 5 mg/h, and propofol, is restarted at a low rate. Current labs include a white count 34.8, hemoglobin 9.5, hematocrit 32.2, and a platelet count of 325,000. Sodium 141, potassium 4, chloride 114, CO2 21, BUN 48, creatinine 1.51. Glucose is 133. Calcium is 7. Blood cultures are negative. Chest x-ray shows in addition to endotracheal tube, and central venous line, blunting of the costophrenic angles. Progress note dated April 14, 2024. 88-year-old female seen today in room 261. She is postop day #2, status post Billroth II gastrectomy and Myles-en-Y reconstruction. The patient is on the ventilator. She was maintained on the ventilator overnight. Currently, the patient is on volume assist-control, rate 16, tidal volume 350, FiO2 30%, PEEP of 5. Blood gases show pO2 of 148, pCO2 33, pH is 7.42. Blood gases were done on 40%. The patient continues on amiodarone at 0.5 mg/min, lactated Ringer's at 75 cc an hour, propofol at 35 mcg/kg/min, and TPN at 30 cc an hour, to be increased to 55 cc an hour. Current white count is 25.2, hemoglobin 9.5, hematocrit 35.5, platelet count 362,000. Sodium 142, potassium 3.3, chlorides 112, CO2 25, BUN 50, creatinine 1.83. Albumin level was 1.9. Chest x-ray is largely unchanged. Progress note dated April 15, 2024. The patient is seen again in room 261. The patient was successfully extubated yesterday, April 14. She is currently on room air. She is receiving a saline IV at KVO, and TPN at 40 cc an hour. Current labs include a white count 18.1, hemoglobin 8.9, hematocrit 27.4, and a platelet count of 334,000. Sodium 140, potassium 3.9, chlorides 114, CO2 23, BUN 46, and creatinine 1.36. Glucose is 170. Calcium is 7.2. Phosphorus is 1.9. Magnesium is 2.0. Progress note dated April 16, 2024. The patient is seen today in room 261. She is currently on room air. She continues on amiodarone at 0.5 mg/min. She is getting TPN at 40 cc an hour, and saline at KVO. She does continue on Zosyn. All her cultures are thus far negative. She has no specific complaints today. According to the nurse, she is a bit anxious. Current labs include a sodium 139, potassium 3.9, chlorides 114, CO2 23, BUN 35, and creatinine 1.15. Glucose is 178. Calcium 7.5, phosphorus 2.3, and magnesium is normal. Culture data is negative. Venous Doppler yeste rday, shows a superficial venous thrombosis involving the cephalic vein, of the left upper extremity. Objective - Vital Signs Vital signs: Vital Signs Temp 97.9 F 04/16/24 04:00 Pulse 70 04/16/24 08:46 Resp 21 04/16/24 08:30 BP 152/72 04/16/24 08:00 Pulse Ox 95 04/16/24 08:46 FiO2 30 04/14/24 09:51 Intake & Output 04/15/24 04/16/24 04/16/24 18:59 06:59 18:59 Intake Total 1350 660 100 Output Total 985 630 285 Balance 365 30 -185 Weight 65.4 kg Intake: IV 270 120 20 0.9 NS 220 120 20 Fluconazole in NaCl,Iso- 50 Osm 100 mg In Saline 1 50ml.bag @ 50 mls/hr IVPB DAILY [facility] Rx#:[id number] Intake, IV Titration 1080 540 80 Amount Amiodarone 450 mg In 250 Dextrose 5% in Water 250 ml @ 0.5 MG/MIN 16.667 mls/hr IV .Q15H [facility] Rx#: [id number] Mvi, Adult No.4 with Vit 480 440 80 K 10 ml Trace (Conc-1Ml/ Dose) 1 ml Sodium Acetate 30 meq Potassium Chloride 40 meq Calcium Gluconate 1 gm Magnesium Sulfate gm 1 gm Potassium Phosphate 12 mmol In Amino Acid 5%-D15w 1,000 ml @ 40 mls/hr IV .Q24H [facility] Rx#:[id number] Piperacillin-Tazobactam 3 100 .375 gm In Sodium Chloride 0.9% 100 ml @ 25 mls/hr IVPB Q12H [facility] Rx# :[id number] Piperacillin-Tazobactam 3 100 .375 gm In Sodium Chloride 0.9% 100 ml @ 25 mls/hr IVPB Q8H [facility] Rx#: [id number] Sodium Phosphate 15 mmol 250 In Dextrose 5% in Water 250 ml @ 127.5 mls/hr IVPB ONCE ONE Rx#: [id number] Output: Drainage 170 190 80 Lower Right Abdomen 0 20 Medial Abdomen 170 170 80 Urine 815 440 205 Other: Voiding Method Indwelling Catheter Indwelling Catheter # Bowel Movements 1 ABP, PAP, CO, CI - Last Documented Arterial Blood Pressure 90/59 - Exam No acute distress, awake and alert, currently on room air. HEENT examination is grossly unremarkable. Neck supple. Full range of motion. No adenopathy thyromegaly or neck vein distention. Cardiovascular examination reveals an irregular rhythm and rate. S1-S2 normal. No S3 or S4. No discernible murmur noted. Heart rate is 70 bpm. Lungs reveal rhonchi. No wheezes or crackles. Breath sounds equal. Saturations are 95 %. Abdomen soft, without bowel sounds. Abdominal incision is dressed. Extremities are intact. No cyanosis clubbing or edema. Skin is without rash or lesion. Neurologic examination is brief but nonfocal. - Labs CBC & Chem 7: 04/15/24 02:58 04/16/24 05:26 Labs: Abnormal Lab Results - Last 24 Hours (Table) 04/15/24 04/15/24 04/15/24 Range/Units 12:01 18:09 23:09 Chloride (98-107) mmol/L BUN (7-17) mg/dL Creatinine (0.52-1.04) mg/dL Glucose (74-99) mg/dL POC Glucose (mg/dL) 210 H 165 H 160 H (70-110) mg/dL Calcium (8.4-10.2) mg/dL Phosphorus (2.5-4.5) mg/dL 04/16/24 04/16/24 Range/Units 05:26 05:35 Chloride 114 H (98-107) mmol/L BUN 35 H (7-17) mg/dL Creatinine 1.15 H (0.52-1.04) mg/dL Glucose 158 H (74-99) mg/dL POC Glucose (mg/dL) 178 H (70-110) mg/dL Calcium 7.5 L (8.4-10.2) mg/dL Phosphorus 2.3 L (2.5-4.5) mg/dL Assessment and Plan Assessment: Postoperative day #7, S/P exploratory laparotomy, repair of perforated duodenal ulcer, and application of a modified Lee patch. Postoperative day #4, status post Billroth II gastrectomy, and Myles-en-Y reconstruction. S/P successful extubation, April 14, 2024. Upper GI series, showing leak, at the site of the modified Lee patch. Acute abdominal sepsis. Acute atrial fibrillation, with rapid ventricular response. History of splenic hematoma, without rupture. Acute dehydration with acute kidney injury. Nonanion gap metabolic acidosis. Leukocytosis, secondary to sepsis. Hypovolemic hyponatremia, recovered. General medical debility. Plan: Plan dated April 10, 2024. The patient had surgery done yesterday, she had an exploratory laparotomy, and repair of a perforated duodenal ulcer. She is currently on 6 L nasal cannula. She did develop some atrial fibrillation with RVR overnight. She was placed on both Cardizem drip, and amiodarone drip. Labs, x-rays, and medications are all reviewed. We will continue to follow the patient, make recommendations along the way. Prognosis is guarded. Plan dated April 11, 2024. The patient appears to be doing relatively well. She still has an NG tube in place. She still NPO. She continues on Cardizem, and amiodarone, for atrial fibrillation with RVR. Labs, x-rays, and medications are reviewed. The patient remains on room air. NG tube remains in place. She is getting lactated Ringer's at 75 cc an hour. We will continue to follow make recommendations along the way. The patient's overall prognosis remains very guarded.\ Plan dated April 12, 2024. The patient's upper GI series, showed a leak, at the site of the modified Lee patch. The patient's labs, x-rays, and medications are all reviewed. The patient is currently on 3 L of oxygen. We will continue to follow make recommendations along the way. In addition, the patient continues on Cardizem at 5 mg an hour, and amiodarone at 0.5 mg/min, for atrial fibrillation/RVR. The patient is also getting lactated Ringer's at 75 cc an hour. We will continue to follow make recommendations along the way. Prognosis is guarded. Plan dated April 13, 2024. The patient's upper GI series showed a leak at the site of the modified Lee patch. The patient is postoperative day #1, status post Billroth II gastrectomy, and Myles-en-Y reconstruction. The patient is currently on the mechanical ventilator, and will stay there overnight. She has a endotracheal tube in place, and an orogastric tube in place as well. She continues on amiodarone at 0.5 mg/min, Cardizem 5 mg/h. Propofol was restarted. She is getting lactated Ringer's at 75 cc an hour. Labs, x-rays, and medications are reviewed. No additional recommendations are made at this time. We will continue to follow, as prognosis is guarded. Plan dated April 14, 2024. The patient appears to be doing well. In fact, the patient will have a daily interruption of sedation, with a spontaneous breathing trial. The patient may benefit from extubation. The patient does continue on Zosyn. Labs, x-rays, and medications are reviewed. The patient also continues on amiodarone at 0.5 mg/min. Propofol is on hold. TPN is running at 30 cc an hour with a goal of 55. We will continue to follow and make recommendations along the way. Prognosis is guarded. No additional recommendations at this time. Plan dated April 15, 2024. The patient was vented yesterday, and, was successfully weaned and extubated yesterday. She had excellent weaning parameters, including a positive cuff leak. Labs, x-rays, medications are reviewed. The patient is currently on TPN at 40 cc an hour. She is not requiring any supplemental oxygen. The patient is also getting on saline IV at 10 cc an hour. Labs, x-rays, and medications are reviewed. Additional recommendations and suggestions are forthcoming. We will continue to follow make recommendations. Prognosis is guarded. Plan dated April 16, 2024. The patient is seen today in room 261. She had a pretty uneventful night according to the nurse. She continues on room air. She is getting TPN at 40 cc an hour, and saline at KVO. She continues on Zosyn. Culture data is negative. In addition, for her atrial fibrillation, she continues on amiodarone 0.5 mg/min. Chest x-ray is reviewed here. Doppler of the left upper extremity shows a superficial venous thrombosis. No specific treatment is necessary. We will continue to follow make recommendations where appropriate. Prognosis is guarded. Time with Patient: Greater than 30
--- NOTE | 2024-04-16 10:07 | P.PN ---
Subjective Patient is seen in follow-up for acute kidney injury. Renal function improved. Receiving TPN. Denies chest pain or shortness of breath. No significant pain. On amiodarone drip for A-fib. Vital signs are stable. General: No acute distress. HEENT: Head exam is unremarkable. LUNGS: No audible rhonchi or wheezes. HEART: Rate and Rhythm are regular. ABDOMEN: Nontender. SHRUTHI drain noted. EXTREMITITES: No edema. Objective - Vital Signs Vital signs: Vital Signs Temp 97.9 F 04/16/24 04:00 Pulse 78 04/16/24 09:00 Resp 19 04/16/24 09:00 BP 169/67 04/16/24 09:00 Pulse Ox 97 04/16/24 09:00 FiO2 30 04/14/24 09:51 Intake & Output 04/15/24 04/16/24 04/16/24 18:59 06:59 18:59 Intake Total 1350 660 150 Output Total 985 630 715 Balance 365 30 -565 Weight 65.4 kg Intake: IV 270 120 30 0.9 NS 220 120 30 Fluconazole in NaCl,Iso- 50 Osm 100 mg In Saline 1 50ml.bag @ 50 mls/hr IVPB DAILY [facility] Rx#:[id number] Intake, IV Titration 1080 540 120 Amount Amiodarone 450 mg In 250 Dextrose 5% in Water 250 ml @ 0.5 MG/MIN 16.667 mls/hr IV .Q15H [facility] Rx#: [id number] Mvi, Adult No.4 with Vit 480 440 120 K 10 ml Trace (Conc-1Ml/ Dose) 1 ml Sodium Acetate 30 meq Potassium Chloride 40 meq Calcium Gluconate 1 gm Magnesium Sulfate gm 1 gm Potassium Phosphate 12 mmol In Amino Acid 5%-D15w 1,000 ml @ 40 mls/hr IV .Q24H [facility] Rx#:[id number] Piperacillin-Tazobactam 3 100 .375 gm In Sodium Chloride 0.9% 100 ml @ 25 mls/hr IVPB Q12H [facility] Rx# :[id number] Piperacillin-Tazobactam 3 100 .375 gm In Sodium Chloride 0.9% 100 ml @ 25 mls/hr IVPB Q8H [facility] Rx#: [id number] Sodium Phosphate 15 mmol 250 In Dextrose 5% in Water 250 ml @ 127.5 mls/hr IVPB ONCE ONE Rx#: [id number] Output: Drainage 170 190 160 Lower Right Abdomen 0 20 Medial Abdomen 170 170 160 Urine 815 440 555 Other: Voiding Method Indwelling Catheter Indwelling Catheter # Bowel Movements 1 1 ABP, PAP, CO, CI - Last Documented Arterial Blood Pressure 90/59 - Labs CBC & Chem 7: 04/15/24 02:58 04/16/24 05:26 Labs: Abnormal Lab Results - Last 24 Hours (Table) 04/15/24 04/15/24 04/15/24 Range/Units 12:01 18:09 23:09 Chloride (98-107) mmol/L BUN (7-17) mg/dL Creatinine (0.52-1.04) mg/dL Glucose (74-99) mg/dL POC Glucose (mg/dL) 210 H 165 H 160 H (70-110) mg/dL Calcium (8.4-10.2) mg/dL Phosphorus (2.5-4.5) mg/dL 04/16/24 04/16/24 Range/Units 05:26 05:35 Chloride 114 H (98-107) mmol/L BUN 35 H (7-17) mg/dL Creatinine 1.15 H (0.52-1.04) mg/dL Glucose 158 H (74-99) mg/dL POC Glucose (mg/dL) 178 H (70-110) mg/dL Calcium 7.5 L (8.4-10.2) mg/dL Phosphorus 2.3 L (2.5-4.5) mg/dL Assessment and Plan Plan: Assessment: 1. Acute kidney injury secondary to hemodynamic ATN. Renal function better. Creatinine 1.15 today. Unknown baseline renal function. UA fairly benign. No hydronephrosis noted on kidney ultrasound. 2. A-fib with RVR maintained on amiodarone drip. 3. Perforated duodenal ulcer status post exploratory laparotomy with modified Lee patch April 09, 2024 with reexploration on April 12, 2024. Surgery following. 4. Metabolic acidosis secondary to acute kidney injury. Stable. 5. Hypophosphatemia from poor intake. Replaced. Improved. Plan: Maintain TPN per surgery. Phosphorus being replaced. Continue to monitor renal function and urine output. Avoid nephrotoxins
--- NOTE | 2024-04-16 10:28 | P.PN ---
Subjective Progress Note Date: 04/16/24 This is an 88-year-old female patient who is somewhat poor historian who we are asked to see in the intensive care unit for further evaluation of atrial fibrillation with rapid ventricular response. The patient lives by herself. She has some underlying dementia. She was brought by her neighbor because she fell 2 days ago and has not been feeling well. She has been experiencing intermittent episodes of confusion and she was also having failure to thrive. Beside that she was feeling nauseated and experiencing intermittent episodes of abdominal discomfort. She underwent further investigation in the emergency department including an EKG showing sinus mechanism with nonspecific ST and T wave abnormalities and also she underwent a CT scan of the abdomen and that revealed perforated bowel. The patient underwent surgery yesterday and this is her postoperation day #1. No history of CAD or CHF or cardiac arrhythmia including atrial fibrillation the patient never seen by a chopper feeder in the p ast according to her. The patient is extremely poor historian and she has difficulty hearing. Subsequently the patient was started on Cardizem IV and amiodarone IV and converted to normal sinus mechanism and has been maintaining normal sinus mechanism with heart rate in the 50s as well as the 60s. Currently she is not on any IV heparin or anticoagulation. We are going to find out from the surgical team when it is safe to start the patient on IV heparin at this point. Apparently she is n.p.o. and cannot take any oral medication and for that reason she is on the IV AV georgie harvnider agents. An echocardiogram was ordered and still pending. Further investigation also was performed including creatinine came to be at 2.5 but the patient has not been able to urinate and there is a component of obstructive uropathy and currently urology service is on the case to place a Walters catheter. Beside that her hemoglobin has been around 10.5. The examination is remarkable for regular rhythm with distant heart sounds and systolic murmur at the right upper sternal border with diminished breathing sounds bilaterally and no edema was noted in the lower extremities 04/12 patient seen and examined. Patient's creatinine has improved to 1.2. She denies any chest pain or pressure. Denies any significant shortness breath. Has some vague abdominal pain. Concern of continued leak from upper GI study. Echocardiogram performed which shows preserved EF without significant valvular disease. Has been on IV amiodarone as well as IV Cardizem drip secondary to patient being nothing by mouth. 04/13 Seen and examined. Remains intubated and sedated. Recievieng TPN, NPO on amio and Cardizem drip. Hgb dropped however may be dilutional. Did have decreased urine outpt and therefore was given dose of Lasix. 04/14 Heart appearing however denying any chest pain or pressure or significant abdom inal pain. Still nothing by mouth and therefore receiving IV amiodarone. Remains in normal sinus rhythm. CVP was checked yesterday with low reading in the 2-3 range. Still receiving TPN 04/15 Patient seen and examined. Patient remains in the intensive care unit. Patient remains NPO. Blood pressure 145/63, heart rate in the 70s, pulse ox 95% on room air. Patient has been afebrile. Telemetry is sinus rhythm. Patient remains on IV amiodarone. Patient maintained on TPN as well. Repeat blood work reveals WBC 18, hemoglobin 8.9. Sodium 140, potassium 3.9, BUN 46 creatinine 1.36. Patient complains of left arm swelling which is being elevated. 04/16 Patient is seen and examined. Patient remains in the intensive care unit. Blood pressure 152/72, heart rate 87, pulse ox 95% on room air. Telemetry is sinus rhythm. Repeat blood work reveals sodium 139, potassium 3.9, BUN 35 creatinine 1.15. Venous Doppler of the left upper extremity showed no evidence of DVT. There is SVT in the cephalic vein from the upper forearm to the mid humerus level. Extensive subcutaneous edema. Patient denies abdominal pain. She is NPO and denies appetite. She states she had 4 BMs last night. PHYSICAL EXAMINATION Vital signs reviewed. CONSTITUTIONAL: No apparent distress. HEENT: Head is normocephalic. Pupils are equal, round. Sclerae anicteric. Mucous membranes of the mouth are moist. No JVD. No carotid bruit. CHEST EXAMINATION: Lungs are clear to auscultation. No chest wall tenderness is noted on palpation or with deep breathing. HEART EXAMINATION: Regular rate and rhythm. S1, S2 heard. No murmurs, gallops or rub. ABDOMEN: Soft, nontender. Positive bowel sounds. EXTREMITIES: 2+ peripheral pulses, no lower extremity edema and no calf tenderness. NEUROLOGIC EXAMINATION: Patient is awake, alert and oriented x3. Assessment Status post abdominal surgery, perforated bowel with continued bowel leak Parosyxmal atrial fibrillation new onset. Currently the patient is in sinus mechanism. Obstructive uropathy JESÚS, improving Multiple comorbid conditions Anemia with drop in hgb Superficial thrombus cephalic vein, left upper extremity Plan Continue with amiodarone IV given she is nothing by mouth, transition to oral once patient is on diet Not a good anticoagulation candidate currently with concern of continued leak and decrease in Hgb. Echo showing preserved EF. Continue her current supportive care Further recommendations to follow. Nurse practitioner note has been reviewed, I agree with documented findings and plan of care. Patient was seen and examined. Objective - Vital Signs Vital signs: Vital Signs Temp 97.9 F 04/16/24 04:00 Pulse 75 04/16/24 08:30 Resp 21 04/16/24 08:30 BP 152/72 04/16/24 08:00 Pulse Ox 95 04/16/24 08:30 FiO2 30 04/14/24 09:51 Intake & Output 04/15/24 04/16/24 04/16/24 18:59 06:59 18:59 Intake Total 1350 660 100 Output Total 985 630 285 Balance 365 30 -185 Weight 65.4 kg Intake: IV 270 120 20 0.9 NS 220 120 20 Fluconazole in NaCl,Iso- 50 Osm 100 mg In Saline 1 50ml.bag @ 50 mls/hr IVPB DAILY [facility] Rx#:[id number] Intake, IV Titration 1080 540 80 Amount Amiodarone 450 mg In 250 Dextrose 5% in Water 250 ml @ 0.5 MG/MIN 16.667 mls/hr IV .Q15H [facility] Rx#: [id number] Mvi, Adult No.4 with Vit 480 440 80 K 10 ml Trace (Conc-1Ml/ Dose) 1 ml Sodium Acetate 30 meq Potassium Chloride 40 meq Calcium Gluconate 1 gm Magnesium Sulfate gm 1 gm Potassium Phosphate 12 mmol In Amino Acid 5%-D15w 1,000 ml @ 40 mls/hr IV .Q24H [facility] Rx#:[id number] Piperacillin-Tazobactam 3 100 .375 gm In Sodium Chloride 0.9% 100 ml @ 25 mls/hr IVPB Q12H [facility] Rx# :[id number] Piperacillin-Tazobactam 3 100 .375 gm In Sodium Chloride 0.9% 100 ml @ 25 mls/hr IVPB Q8H [facility] Rx#: [id number] Sodium Phosphate 15 mmol 250 In Dextrose 5% in Water 250 ml @ 127.5 mls/hr IVPB ONCE ONE Rx#: [id number] Output: Drainage 170 190 80 Lower Right Abdomen 0 20 Medial Abdomen 170 170 80 Urine 815 440 205 Other: Voiding Method Indwelling Catheter Indwelling Catheter # Bowel Movements 1 ABP, PAP, CO, CI - Last Documented Arterial Blood Pressure 90/59 - Labs CBC & Chem 7: 04/15/24 02:58 04/16/24 05:26 Labs: Abnormal Lab Results - Last 24 Hours (Table) 04/15/24 04/15/24 04/15/24 Range/Units 12:01 18:09 23:09 Chloride (98-107) mmol/L BUN (7-17) mg/dL Creatinine (0.52-1.04) mg/dL Glucose (74-99) mg/dL POC Glucose (mg/dL) 210 H 165 H 160 H (70-110) mg/dL Calcium (8.4-10.2) mg/dL Phosphorus (2.5-4.5) mg/dL 04/16/24 04/16/24 Range/Units 05:26 05:35 Chloride 114 H (98-107) mmol/L BUN 35 H (7-17) mg/dL Creatinine 1.15 H (0.52-1.04) mg/dL Glucose 158 H (74-99) mg/dL POC Glucose (mg/dL) 178 H (70-110) mg/dL Calcium 7.5 L (8.4-10.2) mg/dL Phosphorus 2.3 L (2.5-4.5) mg/dL
[2024-04-16] MEDS: POTASSIUM CHLORIDE 20 MEQ in WATER FOR INJECTION 1 100ML.BAG IVPB STA (11:03)
[2024-04-16 12:33] LABS: Glucose,Whole Blood 190 mg/dL (70-110)
--- NOTE | 2024-04-16 13:43 | P.PN ---
Subjective Progress Note Date: 04/16/24 This is an 88-year-old female, recent history of fall about 2 weeks ago, sustained bruising to her left ribs. Patient was brought in yesterday to the ER mostly with symptoms of weakness, failure to thrive, poor oral intake, and suspected dehydration. Patient was also complaining of cough and shortness of breath, no fever no chills, no nausea no vomiting. In addition the patient had no bowel movement for the last 4 days. Apparently the patient has been experiencing intermittent episodes of confusion for the last 1 year. Workup in the ER included a CT of the abdomen and pelvis, it showed pneumoperitoneum and free fluid. Patient was felt that she has ruptured viscus, she was seen by surgery and she underwent exploratory laparotomy for her pneumoperitoneum, and she was found to have perforated duodenal ulcer. Patient had modified Lee patch and postoperatively the patient was extubated nonetheless she was admitted to the ICU, and this consult was initiated. I saw the patient in the ICU this morning, she is on 4 L nasal cannula, does not seem to be in any distress. She is already on Zosyn, and I added Diflucan. She is on LR at 125 cc/h. 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 Patient seen examined. Currently sitting upright in the chair. States she feels much better. Had a bowel movement this morning. Denies any nausea or vomiting REVIEW OF SYSTEMS: CONSTITUTIONAL: No fever, no malaise,. CARDIOVASCULAR: No chest pain, no palpitations, no syncope. PULMONARY: No shortness of breath, no cough, GASTROINTESTINAL: As mentioned above NEUROLOGICAL: No headaches, no weakness, PHYSICAL EXAMINATION: GENERAL: The patient is alert alert, chronically ill looking HEENT: Pupils are round and equally reacting to light. EOMI. No scleral icterus. No conjunctival pallor. Normocephalic, atraumatic. No pharyngeal erythema. No thyromegaly. CARDIOVASCULAR: S1 and S2 present. No murmurs, rubs, or gallops. PULMONARY: Diminished breath sound the bases bilaterally, no wheeze ABDOMEN: Soft, nontender, positive bowel sounds MUSCULOSKELETAL: No joint swelling or deformity. EXTREMITIES: No cyanosis, clubbing, or pedal edema. NEUROLOGICAL: Gross neurological examination did not reveal any focal deficits. SKIN: No rashes. Assessment and plan S/P exploratory laparotomy, repair of perforated duodenal ulcer, and application of a modified Lee patch. status post Billroth II gastrectomy, and Myles-en-Y reconstruction. Upper GI series, showing leak, at the site of the modified Lee patch. acute abdominal sepsis. Acute atrial fibrillation, with rapid ventricular response. Acute dehydration with acute kidney injury. Nonanion gap metabolic acidosis. Leukocytosis, secondary to sepsis. Hypovolemic hyponatremia, Monitor vital signs Monitor CBC Monitor CMP Continue telemetry monitoring Encourage use of incentive spirometer Continue oxygen supplementation Continue TPN Continue IV Zosyn, fluconazole Continue amiodarone,Not a good anticoagulation candidate currently with concern of continued leak and decrease in Hgb Cardiology following General surgery following Critical care following Labs and medication were reviewed.. Continue same treatment. Continue with symptomatic treatment. Resume home medication. Monitor labs and vitals. DVT and GI prophylaxis. Further recommendations as per clinical course of the patient Dictation was produced using [employer] dictation software. please excuse any gr ammatical, word or spelling errors. Objective - Vital Signs Vital signs: Vital Signs Temp 98.0 F 04/16/24 12:30 Pulse 82 04/16/24 13:00 Resp 21 04/16/24 13:00 BP 148/66 04/16/24 13:00 Pulse Ox 96 04/16/24 13:00 FiO2 30 04/14/24 09:51 Intake & Output 04/15/24 04/16/24 04/16/24 18:59 06:59 18:59 Intake Total 1827 380 9985.560 Output Total 985 630 965 Balance 365 30 863.560 Weight 65.4 kg Intake: IV 270 120 370 0.9 NS 220 120 70 Fluconazole in NaCl,Iso- 50 50 Osm 100 mg In Saline 1 50ml.bag @ 50 mls/hr IVPB DAILY [facility] Rx#:[id number] Sodium Phosphate 15 mmol 250 In Dextrose 5% in Water 250 ml @ 127.5 mls/hr IVPB ONCE ONE Rx#: [id number] Intake, IV Titration 4173 297 1453.560 Amount Amiodarone 450 mg In 250 237.227 Dextrose 5% in Water 250 ml @ 0.5 MG/MIN 16.667 mls/hr IV .Q15H [facility] Rx#: [id number] Mvi, Adult No.4 with Vit 654 024 6901.333 K 10 ml Trace (Conc-1Ml/ Dose) 1 ml Sodium Acetate 30 meq Potassium Chloride 40 meq Calcium Gluconate 1 gm Magnesium Sulfate gm 1 gm Potassium Phosphate 12 mmol In Amino Acid 5%-D15w 1,000 ml @ 40 mls/hr IV .Q24H [facility] Rx#:[id number] Piperacillin-Tazobactam 3 100 .375 gm In Sodium Chloride 0.9% 100 ml @ 25 mls/hr IVPB Q12H [facility] Rx# :[id number] Piperacillin-Tazobactam 3 100 .375 gm In Sodium Chloride 0.9% 100 ml @ 25 mls/hr IVPB Q8H [facility] Rx#: [id number] Potassium Chloride 20 meq 100 In Water For Injection 1 100ml.bag @ 50 mls/hr IVPB [facility] Rx#: [id number] Sodium Phosphate 15 mmol 250 In Dextrose 5% in Water 250 ml @ 127.5 mls/hr IVPB ONCE ONE Rx#: [id number] Output: Drainage 170 190 190 Lower Right Abdomen 0 20 Medial Abdomen 170 170 190 Urine 815 440 775 Other: Voiding Method Indwelling Catheter Indwelling Catheter # Bowel Movements 1 1 ABP, PAP, CO, CI - Last Documented Arterial Blood Pressure 90/59 - Labs CBC & Chem 7: 04/15/24 02:58 04/16/24 05:26 Labs: Abnormal Lab Results - Last 24 Hours (Table) 04/15/24 04/15/24 04/16/24 Range/Units 18:09 23:09 05:26 Chloride 114 H (98-107) mmol/L BUN 35 H (7-17) mg/dL Creatinine 1.15 H (0.52-1.04) mg/dL Glucose 158 H (74-99) mg/dL POC Glucose (mg/dL) 165 H 160 H (70-110) mg/dL Calcium 7.5 L (8.4-10.2) mg/dL Phosphorus 2.3 L (2.5-4.5) mg/dL 04/16/24 04/16/24 Range/Units 05:35 12:32 Chloride (98-107) mmol/L BUN (7-17) mg/dL Creatinine (0.52-1.04) mg/dL Glucose (74-99) mg/dL POC Glucose (mg/dL) 178 H 190 H (70-110) mg/dL Calcium (8.4-10.2) mg/dL Phosphorus (2.5-4.5) mg/dL
--- NOTE | 2024-04-16 13:50 | P.PN ---
Subjective Progress Note Date: 04/16/24 Principal diagnosis: Perforated duodenal ulcer Patient doing well today. Resting comfortably at this time. Both drains serous. She is afebrile. White blood cell count improving. Pain is well- controlled mostly in the left rib region. Objective - Vital Signs Vital signs: Vital Signs Temp 98.0 F 04/16/24 12:30 Pulse 82 04/16/24 13:00 Resp 21 04/16/24 13:00 BP 148/66 04/16/24 13:00 Pulse Ox 96 04/16/24 13:00 FiO2 30 04/14/24 09:51 Intake & Output 04/15/24 04/16/24 04/16/24 18:59 06:59 18:59 Intake Total 8356 289 6270.560 Output Total 985 630 965 Balance 365 30 863.560 Weight 65.4 kg Intake: IV 270 120 370 0.9 NS 220 120 70 Fluconazole in NaCl,Iso- 50 50 Osm 100 mg In Saline 1 50ml.bag @ 50 mls/hr IVPB DAILY [facility] Rx#:[id number] Sodium Phosphate 15 mmol 250 In Dextrose 5% in Water 250 ml @ 127.5 mls/hr IVPB ONCE ONE Rx#: [id number] Intake, IV Titration 1551 439 9226.560 Amount Amiodarone 450 mg In 250 237.227 Dextrose 5% in Water 250 ml @ 0.5 MG/MIN 16.667 mls/hr IV .Q15H [facility] Rx#: [id number] Mvi, Adult No.4 with Vit 075 502 2162.333 K 10 ml Trace (Conc-1Ml/ Dose) 1 ml Sodium Acetate 30 meq Potassium Chloride 40 meq Calcium Gluconate 1 gm Magnesium Sulfate gm 1 gm Potassium Phosphate 12 mmol In Amino Acid 5%-D15w 1,000 ml @ 40 mls/hr IV .Q24H [facility] Rx#:[id number] Piperacillin-Tazobactam 3 100 .375 gm In Sodium Chloride 0.9% 100 ml @ 25 mls/hr IVPB Q12H [facility] Rx# :[id number] Piperacillin-Tazobactam 3 100 .375 gm In Sodium Chloride 0.9% 100 ml @ 25 mls/hr IVPB Q8H [facility] Rx#: [id number] Potassium Chloride 20 meq 100 In Water For Injection 1 100ml.bag @ 50 mls/hr IVPB [facility] Rx#: [id number] Sodium Phosphate 15 mmol 250 In Dextrose 5% in Water 250 ml @ 127.5 mls/hr IVPB ONCE ONE Rx#: [id number] Output: Drainage 170 190 190 Lower Right Abdomen 0 20 Medial Abdomen 170 170 190 Urine 815 440 775 Other: Voiding Method Indwelling Catheter Indwelling Catheter # Bowel Movements 1 1 ABP, PAP, CO, CI - Last Documented Arterial Blood Pressure 90/59 - Exam Abdomen: Soft, mild tenderness, dressing clean and dry, both drains serous - Labs CBC & Chem 7: 04/15/24 02:58 04/16/24 05:26 Labs: Abnormal Lab Results - Last 24 Hours (Table) 04/15/24 04/15/24 04/16/24 Range/Units 18:09 23:09 05:26 Chloride 114 H (98-107) mmol/L BUN 35 H (7-17) mg/dL Creatinine 1.15 H (0.52-1.04) mg/dL Glucose 158 H (74-99) mg/dL POC Glucose (mg/dL) 165 H 160 H (70-110) mg/dL Calcium 7.5 L (8.4-10.2) mg/dL Phosphorus 2.3 L (2.5-4.5) mg/dL 04/16/24 04/16/24 Range/Units 05:35 12:32 Chloride (98-107) mmol/L BUN (7-17) mg/dL Creatinine (0.52-1.04) mg/dL Glucose (74-99) mg/dL POC Glucose (mg/dL) 178 H 190 H (70-110) mg/dL Calcium (8.4-10.2) mg/dL Phosphorus (2.5-4.5) mg/dL Assessment and Plan (1) Perforated duodenal ulcer Narrative/Plan: Patient doing well today. Continue TPN and antibiotics. Monitor drain output. May have ice chips and popsicles. Current Visit: Yes Status: Acute Code(s): K26.5 - CHRONIC OR UNSPECIFIED DUODENAL ULCER WITH PERFORATION SNOMED Code(s): 98450936
--- NOTE | 2024-04-16 15:33 | P.PN ---
Subjective Progress Note Date: 04/16/24 Principal diagnosis: Reason for follow-up is perforated duodenal ulcer/peritonitis Patient is a 88-year-old female presenting to the hospital abdominal pain diagnosed with the pneumoperitoneum secondary to the perforated jejunal ulcer status post laparotomy and modified Lee patch.Patient is status post reexploration with Billroth II gastrectomy with Myles-en-Y reconstruction completed on 04/12/2024 On today's evaluation 04/16/2024, Patient is afebrile patient is currently on room air and denies having any shortness of breath, the patient denies any chest pain or cough, the patient denies any nausea vomiting denies any worsening abdominal pain and no diarrhea has been reported. Patient today creatinine 1.15 no CBC was done today abdominal culture has been negative so far Objective - Vital Signs Vital signs: Vital Signs Temp 97.9 F 04/16/24 04:00 Pulse 74 04/16/24 12:36 Resp 22 04/16/24 11:00 BP 159/63 04/16/24 11:00 Pulse Ox 96 04/16/24 11:00 FiO2 30 04/14/24 09:51 Intake & Output 04/15/24 04/16/24 04/16/24 18:59 06:59 18:59 Intake Total 1350 660 650 Output Total 985 630 805 Balance 365 30 -155 Weight 65.4 kg Intake: IV 270 120 350 0.9 NS 220 120 50 Fluconazole in NaCl,Iso- 50 50 Osm 100 mg In Saline 1 50ml.bag @ 50 mls/hr IVPB DAILY [facility] Rx#:[id number] Sodium Phosphate 15 mmol 250 In Dextrose 5% in Water 250 ml @ 127.5 mls/hr IVPB ONCE ONE Rx#: [id number] Intake, IV Titration 1080 540 300 Amount Amiodarone 450 mg In 250 Dextrose 5% in Water 250 ml @ 0.5 MG/MIN 16.667 mls/hr IV .Q15H [facility] Rx#: [id number] Mvi, Adult No.4 with Vit 480 440 200 K 10 ml Trace (Conc-1Ml/ Dose) 1 ml Sodium Acetate 30 meq Potassium Chloride 40 meq Calcium Gluconate 1 gm Magnesium Sulfate gm 1 gm Potassium Phosphate 12 mmol In Amino Acid 5%-D15w 1,000 ml @ 40 mls/hr IV .Q24H [facility] Rx#:[id number] Piperacillin-Tazobactam 3 100 .375 gm In Sodium Chloride 0.9% 100 ml @ 25 mls/hr IVPB Q12H [facility] Rx# :[id number] Piperacillin-Tazobactam 3 100 .375 gm In Sodium Chloride 0.9% 100 ml @ 25 mls/hr IVPB Q8H [facility] Rx#: [id number] Potassium Chloride 20 meq 100 In Water For Injection 1 100ml.bag @ 50 mls/hr IVPB [facility]CE [facility] Rx#: [id number] Sodium Phosphate 15 mmol 250 In Dextrose 5% in Water 250 ml @ 127.5 mls/hr IVPB ONCE ONE Rx#: [id number] Output: Drainage 170 190 130 Lower Right Abdomen 0 20 Medial Abdomen 170 170 130 Urine 815 440 675 Other: Voiding Method Indwelling Catheter Indwelling Catheter # Bowel Movements 1 1 ABP, PAP, CO, CI - Last Documented Arterial Blood Pressure 90/59 - Exam GENERAL DESCRIPTION: An elderly female lying in bed in no distress RESPIRATORY SYSTEM: Unlabored breathing , decreased breath sounds at bases HEART: S1 S2 regular rate and rhythm , ABDOMEN: Soft , mild tenderness EXTREMITIES: No edema feet - Labs CBC & Chem 7: 04/15/24 02:58 04/16/24 05:26 Labs: Abnormal Lab Results - Last 24 Hours (Table) 04/15/24 04/15/24 04/16/24 Range/Units 18:09 23:09 05:26 Chloride 114 H (98-107) mmol/L BUN 35 H (7-17) mg/dL Creatinine 1.15 H (0.52-1.04) mg/dL Glucose 158 H (74-99) mg/dL POC Glucose (mg/dL) 165 H 160 H (70-110) mg/dL Calcium 7.5 L (8.4-10.2) mg/dL Phosphorus 2.3 L (2.5-4.5) mg/dL 04/16/24 04/16/24 Range/Units 05:35 12:32 Chloride (98-107) mmol/L BUN (7-17) mg/dL Creatinine (0.52-1.04) mg/dL Glucose (74-99) mg/dL POC Glucose (mg/dL) 178 H 190 H (70-110) mg/dL Calcium (8.4-10.2) mg/dL Phosphorus (2.5-4.5) mg/dL Assessment and Plan (1) Peritonitis Current Visit: Yes Status: Acute Code(s): K65.9 - PERITONITIS, UNSPECIFIED SNOMED Code(s): 08390713 (2) Leukocytosis Current Visit: Yes Status: Acute Code(s): D72.829 - ELEVATED WHITE BLOOD CELL COUNT, UNSPECIFIED SNOMED Code(s): 430353178 (3) Perforated duodenal ulcer Current Visit: Yes Status: Acute Code(s): K26.5 - CHRONIC OR UNSPECIFIED DUODENAL ULCER WITH PERFORATION SNOMED Code(s): 80507564 Plan: 1patient presented to hospital with abdominal pain constipation has been diagnosed with the pneumoperitoneum secondary to perforated duodenal ulcer status post laparotomy and repair of the perforated jejunal ulcer we will need to cover for gram-negative and yeast. 2patient upper GI that is suspicious for leak patient is status post reexploration with Billroth II gastrectomy with Myles-en-Y reconstruction along with abdominal cultures which are so far negative 3-patient is slowly clinical improvement and the patient white count is trending down as of yesterday no CBC was done today will repeat a CBC tomorrow continue with the Zosyn, Diflucan seem to have been discontinued as the patient was started on amiodarone Dictation was produced using [employer] dictation software. please excuse any grammatical, word or spelling errors. Time with Patient: Less than 30
[2024-04-16 18:33] LABS: Glucose,Whole Blood 155 mg/dL (70-110)
[2024-04-17 00:19] LABS: Glucose,Whole Blood 165 mg/dL (70-110)
[2024-04-17 06:12] LABS: HCT 30.1 % (34.0-46.0); HGB 9.1 gm/dL (11.4-16.0); Hypochromasia Slight; MCHC 30.1 g/dL (31.0-37.0); MCV 92.9 fL (80.0-100.0); Mean Platelet Volume 9.5; Platelet Count 431 k/uL (150-450); RBC 3.24 m/uL (3.80-5.40)
[2024-04-17 06:16] LABS: Glucose,Whole Blood 159 mg/dL (70-110)
[2024-04-17 06:28] LABS: ALT 45 U/L (4-34); AST 46 U/L (14-36); African American GFR (CKD) 53 (>60 ml/min/1.73 sqM); Albumin 2.1 g/dL (3.5-5.0); Alkaline Phosphatase 81 U/L (38-126); Anion Gap 4 mmol/L; Blood Urea Nitrogen 28 mg/dL (7-17); Calcium 7.7 mg/dL (8.4-10.2); Carbon Dioxide 22 mmol/L (22-30); Chloride 113 mmol/L (98-107); Glucose 161 mg/dL (74-99); Magnesium 1.8 mg/dL (1.6-2.3); Non-African American GFR(CKD) 46 (>60 ml/min/1.73 sqM); Phosphorus 2.6 mg/dL (2.5-4.5); Potassium 4.3 mmol/L (3.5-5.1); Sodium 139 mmol/L (137-145); Total Bilirubin 0.6 mg/dL (0.2-1.3); Total Protein 4.3 g/dL (6.3-8.2)
[2024-04-17] MEDS ORDERED: Magnesium Replacement Protocol 1 EACH MISC MISCELLANE PRN (07:35)
--- NOTE | 2024-04-17 08:37 | P.PN ---
Subjective Progress Note Date: 04/17/24 This is an 80-year-old female with a history of a recent fall about 2 weeks ago who was brought into the emergency department with complaints of weakness and poor oral intake. Patient had an exploratory laparotomy and was found to have a perforated duodenal ulcer with a Lee patch placed. She remains in ICU. She is alert and oriented. She is still significantly weak. 04/11/2024 Patient seen and evaluated sitting in chair at bedside this morning. Yesterday had a salvador catheter placed by urology. Patient reports she is very sore today. 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 Valencia. Patient tolerated well. She remains on mechanical ventilation. 04/17/2024 Patient seen this morning laying in bed comfortably. She remains off of mechanical ventilation. She is still NPO and is on TPN. She reports pain is controlled. Objective - Vital Signs Vital signs: Vital Signs Temp 98.9 F 04/17/24 04:00 Pulse 83 04/17/24 08:21 Resp 18 04/17/24 07:00 BP 154/69 04/17/24 07:00 Pulse Ox 96 04/17/24 07:00 FiO2 30 04/14/24 09:51 Intake & Output 04/16/24 04/17/24 04/17/24 18:59 06:59 18:59 Intake Total 1888.560 350.838 10 Output Total 1365 940 75 Balance 523.560 -589.162 -65 Weight 65.1 kg Intake: IV 430 110 10 0.9 NS 130 110 10 Fluconazole in NaCl,Iso- 50 Osm 100 mg In Saline 1 50ml.bag @ 50 mls/hr IVPB DAILY [facility] Rx#:[id number] Sodium Phosphate 15 mmol 250 In Dextrose 5% in Water 250 ml @ 127.5 mls/hr IVPB ONCE ONE Rx#: [id number] Intake, IV Titration 1458.560 240.838 Amount Amiodarone 450 mg In 237.227 240.838 Dextrose 5% in Water 250 ml @ 0.5 MG/MIN 16.667 mls/hr IV .Q15H [facility] Rx#: [id number] Mvi, Adult No.4 with Vit 1121.333 K 10 ml Trace (Conc-1Ml/ Dose) 1 ml Sodium Acetate 30 meq Potassium Chloride 40 meq Calcium Gluconate 1 gm Magnesium Sulfate gm 1 gm Potassium Phosphate 12 mmol In Amino Acid 5%-D15w 1,000 ml @ 40 mls/hr IV .Q24H [facility] Rx#:[id number] Potassium Chloride 20 meq 100 In Water For Injection 1 100ml.bag @ 50 mls/hr IVPB [facility]CE [facility] Rx#: [id number] Output: Drainage 250 190 Lower Right Abdomen 10 10 Medial Abdomen 240 180 Urine 1115 750 75 Other: Voiding Method Indwelling Catheter Indwelling Catheter # Bowel Movements 1 2 ABP, PAP, CO, CI - Last Documented Arterial Blood Pressure 90/59 - Constitutional General appearance: Present: cooperative, no acute distress - EENT Eyes: Present: PERRLA - Neck Neck: Present: normal ROM. Absent: lymphadenopathy, rigidity - Respiratory Respiratory: bilateral: CTA - Cardiovascular Heart sounds: normal: S1, S2 - Gastrointestinal General gastrointestinal: Present: soft - Integumentary Integumentary: Present: normal, normal turgor - Musculoskeletal Musculoskeletal: Present: generalized weakness - Psychiatric Psychiatric: Present: A&O x's 3 - Labs CBC & Chem 7: 04/17/24 05:31 04/17/24 05:31 Labs: Abnormal Lab Results - Last 24 Hours (Table) 04/16/24 04/16/24 04/17/24 Range/Units 12:32 18:29 00:17 WBC (3.8-10.6) k/uL RBC (3.80-5.40) m/uL Hgb (11.4-16.0) gm/dL Hct (34.0-46.0) % MCHC (31.0-37.0) g/dL Chloride (98-107) mmol/L BUN (7-17) mg/dL Creatinine (0.52-1.04) mg/dL Glucose (74-99) mg/dL POC Glucose (mg/dL) 190 H 155 H 165 H (70-110) mg/dL Calcium (8.4-10.2) mg/dL AST (14-36) U/L ALT (4-34) U/L Total Protein (6.3-8.2) g/dL Albumin (3.5-5.0) g/dL 04/17/24 04/17/24 04/17/24 Range/Units 05:31 05:31 06:15 WBC 17.0 H (3.8-10.6) k/uL RBC 3.24 L (3.80-5.40) m/uL Hgb 9.1 L (11.4-16.0) gm/dL Hct 30.1 L (34.0-46.0) % MCHC 30.1 L (31.0-37.0) g/dL Chloride 113 H (98-107) mmol/L BUN 28 H (7-17) mg/dL Creatinine 1.08 H (0.52-1.04) mg/dL Glucose 161 H (74-99) mg/dL POC Glucose (mg/dL) 159 H (70-110) mg/dL Calcium 7.7 L (8.4-10.2) mg/dL AST 46 H (14-36) U/L ALT 45 H (4-34) U/L Total Protein 4.3 L (6.3-8.2) g/dL Albumin 2.1 L (3.5-5.0) g/dL Microbiology - Last 24 Hours (Table) 04/12/24 16:05 Anaerobic Culture - Final Other - Other Assessment and Plan (1) Dehydration Current Visit: Yes Status: Acute Code(s): E86.0 - DEHYDRATION SNOMED Code(s): 44709722 (2) Acute kidney injury Current Visit: Yes Status: Acute Code(s): N17.9 - ACUTE KIDNEY FAILURE, UNSPECIFIED SNOMED Code(s): 93834534 (3) Hematoma of spleen without rupture of capsule Current Visit: Yes Status: Acute Code(s): D73.5 - INFARCTION OF SPLEEN SNOMED Code(s): 249319484 (4) Fall Current Visit: No Status: Acute Code(s): W19.XXXA - UNSPECIFIED FALL, INITIAL ENCOUNTER SNOMED Code(s): 8718324 (5) Ribs, multiple fractures Current Visit: No Status: Acute Code(s): S22.49XA - MULTIPLE FRACTURES OF RIBS, UNSP SIDE, INIT FOR CLOS FX SNOMED Code(s): 4548095 (6) Perforated duodenal ulcer Current Visit: Yes Status: Acute Code(s): K26.5 - CHRONIC OR UNSPECIFIED DUODENAL ULCER WITH PERFORATION SNOMED Code(s): 92483974 Plan: Appreciate multiple consultants. Check labs in the morning. Patient seen and evaluated by nurse practitioner, physician in agreement with plan
[2024-04-17] MEDS: MAGNESIUM SULFATE-D5W PMX 1 GM in DEXTROSE/WATER 1 100ML.BAG IVPB ONE (08:58)
--- NOTE | 2024-04-17 10:20 | P.PN ---
Subjective Patient is seen in follow-up for acute kidney injury. Renal function improved. Receiving TPN. Denies chest pain or shortness of breath. No significant pain. On amiodarone drip for A-fib. No changes overnight. Vital signs are stable. General: No acute distress. HEENT: Head exam is unremarkable. LUNGS: No audible rhonchi or wheezes. HEART: Rate and Rhythm are regular. ABDOMEN: Nontender. SHRUTHI drain noted. EXTREMITITES: No edema. Objective - Vital Signs Vital signs: Vital Signs Temp 97.9 F 04/17/24 08:00 Pulse 76 04/17/24 10:00 Resp 16 04/17/24 10:00 BP 154/66 04/17/24 10:00 Pulse Ox 94 L 04/17/24 10:00 FiO2 30 04/14/24 09:51 Intake & Output 04/16/24 04/17/24 04/17/24 18:59 06:59 18:59 Intake Total 1888.560 350.838 160 Output Total 1365 940 370 Balance 523.560 -589.162 -210 Weight 65.1 kg Intake: IV 430 110 160 0.9 NS 130 110 40 Fluconazole in NaCl,Iso- 50 Osm 100 mg In Saline 1 50ml.bag @ 50 mls/hr IVPB DAILY [facility] Rx#:[id number] Mvi, Adult No.4 with Vit 120 K 10 ml Trace (Conc-1Ml/ Dose) 1 ml Sodium Acetate 30 meq Potassium Chloride 40 meq Calcium Gluconate 1 gm Magnesium Sulfate gm 1 gm Potassium Phosphate 12 mmol In Amino Acid 5%-D15w 1,000 ml @ 40 mls/hr IV .Q24H [facility] Rx#:[id number] Sodium Phosphate 15 mmol 250 In Dextrose 5% in Water 250 ml @ 127.5 mls/hr IVPB ONCE ONE Rx#: [id number] Intake, IV Titration 1458.560 240.838 Amount Amiodarone 450 mg In 237.227 240.838 Dextrose 5% in Water 250 ml @ 0.5 MG/MIN 16.667 mls/hr IV .Q15H [facility] Rx#: [id number] Mvi, Adult No.4 with Vit 1121.333 K 10 ml Trace (Conc-1Ml/ Dose) 1 ml Sodium Acetate 30 meq Potassium Chloride 40 meq Calcium Gluconate 1 gm Magnesium Sulfate gm 1 gm Potassium Phosphate 12 mmol In Amino Acid 5%-D15w 1,000 ml @ 40 mls/hr IV .Q24H [facility] Rx#:[id number] Potassium Chloride 20 meq 100 In Water For Injection 1 100ml.bag @ 50 mls/hr IVPB ONCE [facility] Rx#: [id number] Output: Drainage 250 190 70 Lower Right Abdomen 10 10 Medial Abdomen 240 180 70 Urine 1115 750 300 Other: Voiding Method Indwelling Catheter Indwelling Catheter # Bowel Movements 1 2 1 ABP, PAP, CO, CI - Last Documented Arterial Blood Pressure 90/59 - Labs CBC & Chem 7: 04/17/24 05:31 04/17/24 05:31 Labs: Abnormal Lab Results - Last 24 Hours (Table) 04/16/24 04/16/24 04/17/24 Range/Units 12:32 18:29 00:17 WBC (3.8-10.6) k/uL RBC (3.80-5.40) m/uL Hgb (11.4-16.0) gm/dL Hct (34.0-46.0) % MCHC (31.0-37.0) g/dL Chloride (98-107) mmol/L BUN (7-17) mg/dL Creatinine (0.52-1.04) mg/dL Glucose (74-99) mg/dL POC Glucose (mg/dL) 190 H 155 H 165 H (70-110) mg/dL Calcium (8.4-10.2) mg/dL AST (14-36) U/L ALT (4-34) U/L Total Protein (6.3-8.2) g/dL Albumin (3.5-5.0) g/dL 04/17/24 04/17/24 04/17/24 Range/Units 05:31 05:31 06:15 WBC 17.0 H (3.8-10.6) k/uL RBC 3.24 L (3.80-5.40) m/uL Hgb 9.1 L (11.4-16.0) gm/dL Hct 30.1 L (34.0-46.0) % MCHC 30.1 L (31.0-37.0) g/dL Chloride 113 H (98-107) mmol/L BUN 28 H (7-17) mg/dL Creatinine 1.08 H (0.52-1.04) mg/dL Glucose 161 H (74-99) mg/dL POC Glucose (mg/dL) 159 H (70-110) mg/dL Calcium 7.7 L (8.4-10.2) mg/dL AST 46 H (14-36) U/L ALT 45 H (4-34) U/L Total Protein 4.3 L (6.3-8.2) g/dL Albumin 2.1 L (3.5-5.0) g/dL Microbiology - Last 24 Hours (Table) 04/12/24 16:05 Anaerobic Culture - Final Other - Other Assessment and Plan Plan: Assessment: 1. Acute kidney injury secondary to hemodynamic ATN. Renal function better. Creatinine 1.08 today. Unknown baseline renal function. UA fairly benign. No hydronephrosis noted on kidney ultrasound. 2. A-fib with RVR maintained on amiodarone drip. 3. Perforated duodenal ulcer status post exploratory laparotomy with modified Lee patch April 09, 2024 with reexploration on April 12, 2024. Surgery following. 4. Metabolic acidosis secondary to acute kidney injury. Stable. 5. Hypophosphatemia from poor intake. Replaced. Improved. Plan: Maintain TPN per surgery. Diet per surgery. Continue to monitor renal function and urine output. Avoid nephrotoxins
[2024-04-17 12:03] LABS: Glucose,Whole Blood 183 mg/dL (70-110)
--- NOTE | 2024-04-17 12:06 | P.PN ---
Subjective Progress Note Date: 04/17/24 CHIEF COMPLAINT: Perforated duodenal ulcer HISTORY OF PRESENT ILLNESS: Patient is status post exploratory laparotomy with modified Lee patch for perforated duodenal ulcer on 04/09/24. Upper GI had reported a leak and patient taken back to the OR yesterday. She is postop day #5 status post reexploration with Billroth II gastrectomy with Myles-en-Y reconstruction. Patient remains in the ICU. She reports having 4 bowel movements last night and 1 bowel movement this morning. She reports pain is controlled. Denies any nausea or vomiting. SHRUTHI drains serous output. WBC 18-17 hgb 9.1 PHYSICAL EXAM: VITAL SIGNS: Reviewed. GENERAL: Intubated ABDOMEN: Soft. Nondistended. Incisional dressing clean dry and intact. 2 SHRUTHI drains serous output ASSESSMENT: 1. Perforated duodenal ulcer 2. Splenic subcapsular hematoma without rupture 3. Afib 4. Severe protein calorie malnutrition PLAN: -Advance diet to clear liquids. No carbonated beverages. -Continue TPN for nutrition support -Continue IV antibiotics -Continue IV Protonix -DVT prophylaxis subcu heparin Physician [employer] Advisor note has been reviewed by physician. Signing provider agrees with the documented findings, assessment, and plan of care. Objective - Vital Signs Vital signs: Vital Signs Temp 97.9 F 04/17/24 08:00 Pulse 79 04/17/24 11:45 Resp 19 04/17/24 11:00 BP 154/66 04/17/24 11:00 Pulse Ox 95 04/17/24 11:00 FiO2 30 04/14/24 09:51 Intake & Output 04/16/24 04/17/24 04/17/24 18:59 06:59 18:59 Intake Total 1888.560 350.838 265 Output Total 1365 940 445 Balance 523.560 -589.162 -180 Weight 65.1 kg 65.1 kg Intake: IV 430 110 215 0.9 NS 130 110 50 Fluconazole in NaCl,Iso- 50 Osm 100 mg In Saline 1 50ml.bag @ 50 mls/hr IVPB DAILY [facility] Rx#:[id number] Mvi, Adult No.4 with Vit 165 K 10 ml Trace (Conc-1Ml/ Dose) 1 ml Sodium Acetate 30 meq Potassium Chloride 40 meq Calcium Gluconate 1 gm Magnesium Sulfate gm 1 gm Potassium Phosphate 12 mmol In Amino Acid 5%-D15w 1,000 ml @ 40 mls/hr IV .Q24H [facility] Rx#:[id number] Sodium Phosphate 15 mmol 250 In Dextrose 5% in Water 250 ml @ 127.5 mls/hr IVPB ONCE ONE Rx#: [id number] Intake, IV Titration 1458.560 240.838 Amount Amiodarone 450 mg In 237.227 240.838 Dextrose 5% in Water 250 ml @ 0.5 MG/MIN 16.667 mls/hr IV .Q15H [facility] Rx#: [id number] Mvi, Adult No.4 with Vit 1121.333 K 10 ml Trace (Conc-1Ml/ Dose) 1 ml Sodium Acetate 30 meq Potassium Chloride 40 meq Calcium Gluconate 1 gm Magnesium Sulfate gm 1 gm Potassium Phosphate 12 mmol In Amino Acid 5%-D15w 1,000 ml @ 40 mls/hr IV .Q24H [facility] Rx#:[id number] Potassium Chloride 20 meq 100 In Water For Injection 1 100ml.bag @ 50 mls/hr IVPB [facility]CE [facility] Rx#: [id number] Oral 50 Output: Drainage 250 190 70 Lower Right Abdomen 10 10 Medial Abdomen 240 180 70 Urine 1115 750 375 Other: Voiding Method Indwelling Catheter Indwelling Catheter Indwelling Catheter # Bowel Movements 1 2 1 ABP, PAP, CO, CI - Last Documented Arterial Blood Pressure 90/59 - Labs CBC & Chem 7: 04/17/24 05:31 04/17/24 05:31 Labs: Abnormal Lab Results - Last 24 Hours (Table) 04/16/24 04/16/24 04/17/24 Range/Units 12:32 18:29 00:17 WBC (3.8-10.6) k/uL RBC (3.80-5.40) m/uL Hgb (11.4-16.0) gm/dL Hct (34.0-46.0) % MCHC (31.0-37.0) g/dL Chloride (98-107) mmol/L BUN (7-17) mg/dL Creatinine (0.52-1.04) mg/dL Glucose (74-99) mg/dL POC Glucose (mg/dL) 190 H 155 H 165 H (70-110) mg/dL Calcium (8.4-10.2) mg/dL AST (14-36) U/L ALT (4-34) U/L Total Protein (6.3-8.2) g/dL Albumin (3.5-5.0) g/dL 04/17/24 04/17/24 04/17/24 Range/Units 05:31 05:31 06:15 WBC 17.0 H (3.8-10.6) k/uL RBC 3.24 L (3.80-5.40) m/uL Hgb 9.1 L (11.4-16.0) gm/dL Hct 30.1 L (34.0-46.0) % MCHC 30.1 L (31.0-37.0) g/dL Chloride 113 H (98-107) mmol/L BUN 28 H (7-17) mg/dL Creatinine 1.08 H (0.52-1.04) mg/dL Glucose 161 H (74-99) mg/dL POC Glucose (mg/dL) 159 H (70-110) mg/dL Calcium 7.7 L (8.4-10.2) mg/dL AST 46 H (14-36) U/L ALT 45 H (4-34) U/L Total Protein 4.3 L (6.3-8.2) g/dL Albumin 2.1 L (3.5-5.0) g/dL Microbiology - Last 24 Hours (Table) 04/12/24 16:05 Anaerobic Culture - Final Other - Other
--- NOTE | 2024-04-17 12:22 | P.PN ---
Subjective Progress Note Date: 04/17/24 This is an 88-year-old female, recent history of fall about 2 weeks ago, sustained bruising to her left ribs. Patient was brought in yesterday to the ER mostly with symptoms of weakness, failure to thrive, poor oral intake, and suspected dehydration. Patient was also complaining of cough and shortness of breath, no fever no chills, no nausea no vomiting. In addition the patient had no bowel movement for the last 4 days. Apparently the patient has been experiencing intermittent episodes of confusion for the last 1 year. Workup in the ER included a CT of the abdomen and pelvis, it showed pneumoperitoneum and free fluid. Patient was felt that she has ruptured viscus, she was seen by surgery and she underwent exploratory laparotomy for her pneumoperitoneum, and she was found to have perforated duodenal ulcer. Patient had modified Lee patch and postoperatively the patient was extubated nonetheless she was admitted to the ICU, and this consult was initiated. I saw the patient in the ICU this morning, she is on 4 L nasal cannula, does not seem to be in any distress. She is already on Zosyn, and I added Diflucan. She is on LR at 125 cc/h. Her WBC count is 28.6, electrolytes are normal hemoglobin is 10.7 BUN is 97 creatinine down to 2.45 from 3.27 yesterday. Progress note dated April 10, 2024. 88-year-old female seen yesterday in consultation. She was admitted on April 08, with confusion and weakness. The patient had a repair of a perforated duodenal ulcer on April 09. Today is postop day #1. She is currently seen today in room 261. She is currently on 6 L of oxygen by nasal cannula. She has an NG tube in place. She is getting lactated Ringer's at 125 cc an hour. For atrial fibrillation with a rapid ventricular response, she was started on Cardizem drip at 5 mg an hour, and amiodarone 0.5 mg/min. No new labs today other than a glucose of 154. The labs from yesterday are reviewed. White count was 28.6. Hemoglobin 10.7, platelet count was normal. BUN and creatinine were 97 and 2.45. Chest x-ray suggested bilateral pleural effusions. Progress note dated April 11, 2024. 88-year-old female seen today in room 261. The patient was admitted on April 08, with confusion and weakness. The patient was discovered to have a perforated duodenal ulcer, and had a surgical repair performed on April 09. Today is postop day #2. The patient is currently without distress. She is on room air. NG tube remains in place. She is getting lactated Ringer's at 75 cc an hour. Because of atrial fibrillation and RVR, she continues on amiodarone 0.5 mg/min, and Cardizem at 5 mg an hour. Lab data includes a white count 34.6, hemoglobin 9.1, hematocrit 36.6, and a platelet count 442,000. Sodium 143, potassium 4.1, chlorides 113, CO2 23, BUN 71, creatinine 1.64. Glucose is 134. Albumin is 2.3. Blood cultures are currently negative. No chest x-ray today has been ordered. Progress note dated April 12, 2024. This is an 88-year-old female who is seen in room 261. The patient was admitted back on April 08, with confusion and weakness. She was discovered to have a perforated duodenal ulcer, and had surgical repair performed on April 09. Today is postoperative day #3. The patient is going to have a upper GI study today. She is getting lactated Ringer's at 75 cc an hour, 3 L of oxygen by nasal cannula, Cardizem at 5 mg an hour, and amiodarone at 0.5 mg/min. White count was 37.4, hemoglobin 11.6, hematocrit 38.5, and platelet count was normal. Sodium 145, potassium 3.2, chloride 115, CO2 24, BUN 52, creatinine 1.26. Glucose 123. Calcium 8.2. BUN 2.2. Blood cultures are currently negative. The patient's chest x-ray is stable, with some basilar atelectasis on the right. Upper GI study showed a leak, at the site of patch placement, in the duodenal bulb. Progress note dated April 13, 2024. 88-year-old female seen today in room 261. The patient is postop day #1, status post Billroth II gastrectomy, and Myles-en-Y reconstruction. The patient is currently on the ventilator. Ventilator settings include volume assist-control, rate 16, tidal volume 350, FiO2 40%, PEEP of 5. Blood gases show pO2 128, pCO2 34, pH is 7.43. The blood gases were done on 50% FiO2. The patient is on lactated Ringer's at 75 cc an hour, amiodarone 0.5 mg/min, Cardizem at 5 mg/h, and propofol, is restarted at a low rate. Current labs include a white count 34.8, hemoglobin 9.5, hematocrit 32.2, and a platelet count of 325,000. Sodium 141, potassium 4, chloride 114, CO2 21, BUN 48, creatinine 1.51. Glucose is 133. Calcium is 7. Blood cultures are negative. Chest x-ray shows in addition to endotracheal tube, and central venous line, blunting of the costophrenic angles. Progress note dated April 14, 2024. 88-year-old female seen today in room 261. She is postop day #2, status post Billroth II gastrectomy and Myles-en-Y reconstruction. The patient is on the ventilator. She was maintained on the ventilator overnight. Currently, the patient is on volume assist-control, rate 16, tidal volume 350, FiO2 30%, PEEP of 5. Blood gases show pO2 of 148, pCO2 33, pH is 7.42. Blood gases were done on 40%. The patient continues on amiodarone at 0.5 mg/min, lactated Ringer's at 75 cc an hour, propofol at 35 mcg/kg/min, and TPN at 30 cc an hour, to be increased to 55 cc an hour. Current white count is 25.2, hemoglobin 9.5, hematocrit 35.5, platelet count 362,000. Sodium 142, potassium 3.3, chlorides 112, CO2 25, BUN 50, creatinine 1.83. Albumin level was 1.9. Chest x-ray is largely unchanged. Progress note dated April 15, 2024. The patient is seen again in room 261. The patient was successfully extubated yesterday, April 14. She is currently on room air. She is receiving a saline IV at KVO, and TPN at 40 cc an hour. Current labs include a white count 18.1, hemoglobin 8.9, hematocrit 27.4, and a platelet count of 334,000. Sodium 140, potassium 3.9, chlorides 114, CO2 23, BUN 46, and creatinine 1.36. Glucose is 170. Calcium is 7.2. Phosphorus is 1.9. Magnesium is 2.0. Progress note dated April 16, 2024. The patient is seen today in room 261. She is currently on room air. She continues on amiodarone at 0.5 mg/min. She is getting TPN at 40 cc an hour, and saline at KVO. She does continue on Zosyn. All her cultures are thus far negative. She has no specific complaints today. According to the nurse, she is a bit anxious. Current labs include a sodium 139, potassium 3.9, chlorides 114, CO2 23, BUN 35, and creatinine 1.15. Glucose is 178. Calcium 7.5, phosphorus 2.3, and magnesium is normal. Culture data is negative. Venous Doppler yesterday, shows a superficial venous thrombosis involving the cephalic vein, of the left upper extremity. On today's evaluation of 04/17/2024, the patient is being seen for a follow-up. The patient is recovering from her abdominal surgery. The patient undergone exploratory laparotomy and repair of a perforated duodenal ulcer and she is postop day #8 subsequent the patient required a bit to gastrectomy and the patient is this morning, the patient has awake and alert and she is currently on med oxygen. She is in normal sinus rhythm. She is on TPN which is running at a rate of 40 cc an hour. She remains on IV Zosyn. She is using the incentive spirometer. The patient has 2 SHRUTHI drains. The medial drain has drained approximately 180 cc of serous material and the right lower abdominal drain has put out approximately 10 cc. She has had paroxysmal atrial fibrillation. She remains on amiodarone running at 0.5 mg/min. The white cell count is at 17 with a hemoglobin 9.1 and a platelet count of 431. BUN is 28 with a creatinine of 1. Electrolytes are normal limits. LFTs are normal. Blood sugar is at 183. The patient remains on empiric antibiotic coverage with IV Zosyn. She is being given oral diet today. Should be able also to take her oral medication. Surgical abdominal wound scar is dry clean and intact. He is alert and awake and communicating. Objective - Vital Signs Vital signs: Vital Signs Temp 97.9 F 04/17/24 08:00 Pulse 76 04/17/24 10:00 Resp 16 04/17/24 10:00 BP 154/66 04/17/24 10:00 Pulse Ox 94 L 04/17/24 10:00 FiO2 30 04/14/24 09:51 Intake & Output 04/16/24 04/17/24 04/17/24 18:59 06:59 18:59 Intake Total 1888.560 350.838 160 Output Total 1365 940 370 Balance 523.560 -589.162 -210 Weight 65.1 kg Intake: IV 430 110 160 0.9 NS 130 110 40 Fluconazole in NaCl,Iso- 50 Osm 100 mg In Saline 1 50ml.bag @ 50 mls/hr IVPB DAILY [facility] Rx#:[id number] Mvi, Adult No.4 with Vit 120 K 10 ml Trace (Conc-1Ml/ Dose) 1 ml Sodium Acetate 30 meq Potassium Chloride 40 meq Calcium Gluconate 1 gm Magnesium Sulfate gm 1 gm Potassium Phosphate 12 mmol In Amino Acid 5%-D15w 1,000 ml @ 40 mls/hr IV .Q24H [facility] Rx#:[id number] Sodium Phosphate 15 mmol 250 In Dextrose 5% in Water 250 ml @ 127.5 mls/hr IVPB ONCE ONE Rx#: [id number] Intake, IV Titration 1458.560 240.838 Amount Amiodarone 450 mg In 237.227 240.838 Dextrose 5% in Water 250 ml @ 0.5 MG/MIN 16.667 mls/hr IV .Q15H [facility] Rx#: [id number] Mvi, Adult No.4 with Vit 1121.333 K 10 ml Trace (Conc-1Ml/ Dose) 1 ml Sodium Acetate 30 meq Potassium Chloride 40 meq Calcium Gluconate 1 gm Magnesium Sulfate gm 1 gm Potassium Phosphate 12 mmol In Amino Acid 5%-D15w 1,000 ml @ 40 mls/hr IV .Q24H [facility] Rx#:[id number] Potassium Chloride 20 meq 100 In Water For Injection 1 100ml.bag @ 50 mls/hr IVPB ONCE STA Rx#: [id number] Output: Drainage 250 190 70 Lower Right Abdomen 10 10 Medial Abdomen 240 180 70 Urine 1115 750 300 Other: Voiding Method Indwelling Catheter Indwelling Catheter # Bowel Movements 1 2 1 ABP, PAP, CO, CI - Last Documented Arterial Blood Pressure 90/59 - Exam No acute distress, awake and alert, currently on room air. HEENT examination is grossly unremarkable. Neck supple. Full range of motion. No adenopathy thyromegaly or neck vein distention. Cardiovascular examination reveals an irregular rhythm and rate. S1-S2 normal. No S3 or S4. No discernible murmur noted. Lungs reveal rhonchi. No wheezes or crackles. Breath sounds equal. Abdomen soft, without bowel sounds. Abdominal incision is dressed. The patient has SHRUTHI drains in place, output is minimal at this point in time. No significant abdominal distention. Positive bowel sounds. Extremities are intact. No cyanosis clubbing or edema. Skin is without rash or lesion. Neurologic examination is brief but nonfocal. - Labs CBC & Chem 7: 04/17/24 05:31 04/17/24 05:31 Labs: Abnormal Lab Results - Last 24 Hours (Table) 04/16/24 04/16/24 04/17/24 Range/Units 12:32 18:29 00:17 WBC (3.8-10.6) k/uL RBC (3.80-5.40) m/uL Hgb (11.4-16.0) gm/dL Hct (34.0-46.0) % MCHC (31.0-37.0) g/dL Chloride (98-107) mmol/L BUN (7-17) mg/dL Creatinine (0.52-1.04) mg/dL Glucose (74-99) mg/dL POC Glucose (mg/dL) 190 H 155 H 165 H (70-110) mg/dL Calcium (8.4-10.2) mg/dL AST (14-36) U/L ALT (4-34) U/L Total Protein (6.3-8.2) g/dL Albumin (3.5-5.0) g/dL 04/17/24 04/17/24 04/17/24 Range/Units 05:31 05:31 06:15 WBC 17.0 H (3.8-10.6) k/uL RBC 3.24 L (3.80-5.40) m/uL Hgb 9.1 L (11.4-16.0) gm/dL Hct 30.1 L (34.0-46.0) % MCHC 30.1 L (31.0-37.0) g/dL Chloride 113 H (98-107) mmol/L BUN 28 H (7-17) mg/dL Creatinine 1.08 H (0.52-1.04) mg/dL Glucose 161 H (74-99) mg/dL POC Glucose (mg/dL) 159 H (70-110) mg/dL Calcium 7.7 L (8.4-10.2) mg/dL AST 46 H (14-36) U/L ALT 45 H (4-34) U/L Total Protein 4.3 L (6.3-8.2) g/dL Albumin 2.1 L (3.5-5.0) g/dL Microbiology - Last 24 Hours (Table) 04/12/24 16:05 Anaerobic Culture - Final Other - Other Assessment and Plan Plan: Postoperative day # 8, S/P exploratory laparotomy, repair of perforated duodenal ulcer, and application of a modified Lee patch. Upper GI series, showing leak, at the site of the modified Lee patch. Postoperative day # 5, status post Billroth II gastrectomy, and Myles-en-Y reconstruction. The patient remains on TPN for nutritional support. Acute hypoxic respiratory failure, recovered and the patient was extubated on 04/14/2024. Acute abdominal sepsis, secondary to above and the patient is currently on IV Zosyn Acute atrial fibrillation, with rapid ventricular response. The cardiac rhythm is back to sinus and the patient remains on amiodarone drip at 0.5 mg/min History of splenic hematoma, without rupture. The patient is currently on no anticoagulants Acute dehydration with acute kidney injury. Recovered and the patient renal function is normal Nonanion gap metabolic acidosis, recovered Leukocytosis, secondary to sepsis. Hypovolemic hyponatremia, recovered. General medical debility. Plan: Patient is currently on room air oxygen. Encourage use of incentive spirometer Advance diet slowly Monitor the output from the SHRUTHI drain and general surgery is on the case Surgical scar is dry clean and intact Start amiodarone drip and put the patient on oral amiodarone Adequate pain control Cardiac rhythm is sinus Will continue to follow.
[2024-04-17] MEDS: AMIODARONE 200 MG TAB PO SCH (12:56)
[2024-04-17] MEDS: METOPROLOL TARTRATE 25 MG TAB PO SCH (12:56)
[2024-04-17] MEDS ORDERED: METOPROLOL TARTRATE 25 MG TAB PO SCH (13:00)
[2024-04-17] MEDS: MVI, ADULT NO.4 WITH VIT K 10 ML, TRACE (CONC-1ML/DOSE) 1 ML, SODIUM ACETATE 30 MEQ, PO... IV SCH (13:16)
[2024-04-17] MEDS: amLODIPine 2.5 MG TAB PO SCH (13:17)
[2024-04-17] MEDS: FAT EMULSION 20% 250 ML IV SCH (13:25)
[2024-04-17 18:10] LABS: Glucose,Whole Blood 132 mg/dL (70-110)
--- NOTE | 2024-04-17 23:58 | XR ---
EXAMINATION TYPE: XR chest 1V portable DATE OF EXAM: 04/17/2024 CLINICAL HISTORY: Difficulty breathing progress study. TECHNIQUE: Single AP portable frontal view of the chest is obtained. COMPARISON: Chest x-ray from 3 days earlier FINDINGS: Interval extubation with removal of endotracheal and orogastric tubes. Stable right internet e[employer] specialist al jugular central venous catheter. New bilateral central opacities with persistent small bilateral p leural effusions. Cardiac silhouette size stable and likely within normal limits. Osseous structures are intact. Impression: New moderate to severe bilateral central opacities favoring edema suggesting fluid overlo ad state.
[2024-04-18 00:07] LABS: Glucose,Whole Blood 141 mg/dL (70-110)
[2024-04-18] MEDS: FUROSEMIDE 10 MG/ML 4 ML VIAL IV STA (00:14)
[2024-04-18] MEDS: FUROSEMIDE 10 MG/ML 2 ML VIAL IV STA (01:30)
[2024-04-18 06:02] LABS: Glucose,Whole Blood 161 mg/dL (70-110)
--- NOTE | 2024-04-18 08:34 | P.PN ---
Subjective Progress Note Date: 04/18/24 This is an 80-year-old female with a history of a recent fall about 2 weeks ago who was brought into the emergency department with complaints of weakness and poor oral intake. Patient had an exploratory laparotomy and was found to have a perforated duodenal ulcer with a Lee patch placed. She remains in ICU. She is alert and oriented. She is still significantly weak. 04/11/2024 Patient seen and evaluated sitting in chair at bedside this morning. Yesterday had a salvador catheter placed by urology. Patient reports she is very sore today. 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 Valencia. Patient tolerated well. She remains on mechanical ventilation. 04/17/2024 Patient seen this morning laying in bed comfortably. She remains off of mechanical ventilation. She is still NPO and is on TPN. She reports pain is controlled. 04/18/2024 Patient seen this morning laying in bed with BiPAP on. She does report a little more pain today. She still remains on TPN, however a clear liquid diet has been ordered. Objective - Vital Signs Vital signs: Vital Signs Temp 98.8 F 04/18/24 01:04 Pulse 77 04/18/24 05:11 Resp 18 04/18/24 05:11 BP 107/58 04/18/24 05:11 Pulse Ox 95 04/18/24 05:11 FiO2 50 04/18/24 05:11 Intake & Output 04/17/24 04/18/24 04/18/24 18:59 06:59 18:59 Intake Total 456 20 Output Total 1395 2120 Balance -939 -2100 Weight 65.1 kg 46.5 kg Intake: IV 346 20 0.9 NS 70 10 Fat Emulsion 20% 250 ml @ 21 20.833 mls/hr IV [facility] Rx#:[id number] Invasive Line 6 10 Mvi, Adult No.4 with Vit 255 K 10 ml Trace (Conc-1Ml/ Dose) 1 ml Sodium Acetate 30 meq Potassium Chloride 40 meq Calcium Gluconate 1 gm Magnesium Sulfate gm 1 gm Potassium Phosphate 12 mmol In Amino Acid 5%-D15w 1,000 ml @ 40 mls/hr IV .Q24H [facility] Rx#:[id number] Oral 110 Output: Drainage 220 195 Lower Right Abdomen 10 Medial Abdomen 220 185 Urine 1175 1925 Other: Voiding Method Indwelling Catheter Indwelling Catheter # Bowel Movements 1 ABP, PAP, CO, CI - Last Documented Arterial Blood Pressure 90/59 - Constitutional General appearance: Present: cooperative, no acute distress, thin - EENT Eyes: Present: PERRLA - Neck Neck: Present: normal ROM. Absent: lymphadenopathy, rigidity - Respiratory Respiratory: bilateral: rhonchi - Cardiovascular Heart sounds: normal: S1, S2 - Gastrointestinal General gastrointestinal: Present: soft, tenderness - Integumentary Integumentary: Present: normal, normal turgor - Musculoskeletal Musculoskeletal: Present: generalized weakness - Psychiatric Psychiatric: Present: A&O x's 3 - Labs CBC & Chem 7: 04/17/24 05:31 04/17/24 05:31 Labs: Abnormal Lab Results - Last 24 Hours (Table) 04/17/24 04/17/24 04/18/24 Range/Units 12:01 18:09 00:04 POC Glucose (mg/dL) 183 H 132 H 141 H (70-110) mg/dL 04/18/24 Range/Units 06:01 POC Glucose (mg/dL) 161 H (70-110) mg/dL Assessment and Plan (1) Dehydration Current Visit: Yes Status: Acute Code(s): E86.0 - DEHYDRATION SNOMED Code(s): 24767208 (2) Acute kidney injury Current Visit: Yes Status: Acute Code(s): N17.9 - ACUTE KIDNEY FAILURE, UNSPECIFIED SNOMED Code(s): 85673527 (3) Hematoma of spleen without rupture of capsule Current Visit: Yes Status: Acute Code(s): D73.5 - INFARCTION OF SPLEEN SNOMED Code(s): 375015305 (4) Fall Current Visit: No Status: Acute Code(s): W19.XXXA - UNSPECIFIED FALL, INITI AL ENCOUNTER SNOMED Code(s): 8223551 (5) Ribs, multiple fractures Current Visit: No Status: Acute Code(s): S22.49XA - MULTIPLE FRACTURES OF RIBS, UNSP SIDE, INIT FOR CLOS FX SNOMED Code(s): 8484006 (6) Perforated duodenal ulcer Current Visit: Yes Status: Acute Code(s): K26.5 - CHRONIC OR UNSPECIFIED DUODENAL ULCER WITH PERFORATION SNOMED Code(s): 14403779 Plan: Appreciate multiple consultants. Check labs in the morning. Patient seen and evaluated by nurse practitioner, physician in agreement with plan
[2024-04-18 10:07] LABS: HCT 29.3 % (34.0-46.0); Hypochromasia Marked; MCH 29.7 pg (25.0-35.0); MCHC 30.6 g/dL (31.0-37.0); MCV 97.1 fL (80.0-100.0); Mean Platelet Volume 9.3; Platelet Count 443 k/uL (150-450); RBC 3.02 m/uL (3.80-5.40); WBC 38.9 k/uL (3.8-10.6)
--- NOTE | 2024-04-18 10:21 | XR ---
EXAMINATION TYPE: XR chest 1V portable DATE OF EXAM: 04/18/2024 COMPARISON: 04/17/2024 HISTORY: Shortness of breath TECHNIQUE: Single frontal view of the chest is obtained. FINDINGS: Bilateral consolidation with small effusion. Right-sided central line. There is no pneumot horax. Osseous structures demonstrate degenerative change of the spine. A retrocardiac lucency could be related to hiatal hernia. Other etiologies not excluded. IMPRESSION: Fairly diffuse bilateral consolidation and pleural effusion correlate for CHF versus dif fuse pneumonia.
[2024-04-18 10:28] LABS: ALT 45 U/L (4-34); AST 43 U/L (14-36); African American GFR (CKD) 45 (>60 ml/min/1.73 sqM); Albumin 2.1 g/dL (3.5-5.0); Alkaline Phosphatase 89 U/L (38-126); Anion Gap 3 mmol/L; Blood Urea Nitrogen 32 mg/dL (7-17); Calcium 7.9 mg/dL (8.4-10.2); Carbon Dioxide 24 mmol/L (22-30); Chloride 109 mmol/L (98-107); Glucose 153 mg/dL (74-99); Magnesium 1.9 mg/dL (1.6-2.3); Non-African American GFR(CKD) 39 (>60 ml/min/1.73 sqM); Phosphorus 3.5 mg/dL (2.5-4.5); Potassium 4.8 mmol/L (3.5-5.1); Sodium 136 mmol/L (137-145); Total Bilirubin 0.7 mg/dL (0.2-1.3); Total Protein 4.3 g/dL (6.3-8.2)
--- NOTE | 2024-04-18 10:34 | P.PN ---
Subjective Patient is seen in follow-up for acute kidney injury. Receiving TPN. Denies chest pain or shortness of breath. No significant pain. Now on oral a miodarone. Became short of breath last night and received a total of 60 mg IV Lasix. Vital signs are stable. General: No acute distress. HEENT: Head exam is unremarkable. On BiPAP. LUNGS: No audible rhonchi or wheezes. HEART: Rate and Rhythm are regular. ABDOMEN: Nontender. SHRUTHI drain noted. EXTREMITITES: Trace edema. Objective - Vital Signs Vital signs: Vital Signs Temp 98.4 F 04/18/24 08:00 Pulse 76 04/18/24 08:48 Resp 18 04/18/24 08:00 BP 128/59 04/18/24 08:00 Pulse Ox 96 04/18/24 08:40 FiO2 50 04/18/24 08:40 Intake & Output 04/17/24 04/18/24 04/18/24 18:59 06:59 18:59 Intake Total 456 20 Output Total 1395 2120 Balance -939 -2100 Weight 65.1 kg 46.5 kg Intake: IV 346 20 0.9 NS 70 10 Fat Emulsion 20% 250 ml @ 21 20.833 mls/hr IV [facility] Rx#:[id number] Invasive Line 6 10 Mvi, Adult No.4 with Vit 255 K 10 ml Trace (Conc-1Ml/ Dose) 1 ml Sodium Acetate 30 meq Potassium Chloride 40 meq Calcium Gluconate 1 gm Magnesium Sulfate gm 1 gm Potassium Phosphate 12 mmol In Amino Acid 5%-D15w 1,000 ml @ 40 mls/hr IV .Q24H [facility] Rx#:[id number] Oral 110 Output: Drainage 220 195 Lower Right Abdomen 10 Medial Abdomen 220 185 Urine 1175 1925 Other: Voiding Method Indwelling Catheter Indwelling Catheter # Bowel Movements 1 ABP, PAP, CO, CI - Last Documented Arterial Blood Pressure 90/59 - Labs CBC & Chem 7: 04/18/24 08:59 04/18/24 08:59 Labs: Abnormal Lab Results - Last 24 Hours (Table) 04/17/24 04/17/24 04/18/24 Range/Units 12:01 18:09 00:04 WBC (3.8-10.6) k/uL RBC (3.80-5.40) m/uL Hgb (11.4-16.0) gm/dL Hct (34.0-46.0) % MCHC (31.0-37.0) g/dL Sodium (137-145) mmol/L Chloride (98-107) mmol/L BUN (7-17) mg/dL Creatinine (0.52-1.04) mg/dL Glucose (74-99) mg/dL POC Glucose (mg/dL) 183 H 132 H 141 H (70-110) mg/dL Calcium (8.4-10.2) mg/dL AST (14-36) U/L ALT (4-34) U/L Total Protein (6.3-8.2) g/dL Albumin (3.5-5.0) g/dL 04/18/24 04/18/24 04/18/24 Range/Units 06:01 08:59 08:59 WBC 38.9 H (3.8-10.6) k/uL RBC 3.02 L (3.80-5.40) m/uL Hgb 9.0 L (11.4-16.0) gm/dL Hct 29.3 L (34.0-46.0) % MCHC 30.6 L (31.0-37.0) g/dL Sodium 136 L (137-145) mmol/L Chloride 109 H (98-107) mmol/L BUN 32 H (7-17) mg/dL Creatinine 1.22 H (0.52-1.04) mg/dL Glucose 153 H (74-99) mg/dL POC Glucose (mg/dL) 161 H (70-110) mg/dL Calcium 7.9 L (8.4-10.2) mg/dL AST 43 H (14-36) U/L ALT 45 H (4-34) U/L Total Protein 4.3 L (6.3-8.2) g/dL Albumin 2.1 L (3.5-5.0) g/dL Assessment and Plan Plan: Assessment: 1. Acute kidney injury secondary to hemodynamic ATN. Renal function worse from diuresis. Creatinine 1.22 today. Unknown baseline renal function. UA fairly b enign. No hydronephrosis noted on kidney ultrasound. 2. A-fib with RVR status post amiodarone drip. Now on oral amiodarone and Lopressor. 3. Perforated duodenal ulcer status post exploratory laparotomy with modified Lee patch April 09, 2024 with reexploration on April 12, 2024. Surgery followi ng. 4. Metabolic acidosis secondary to acute kidney injury. Stable. 5. Hypophosphatemia from poor intake. Replaced. Improved. 6. Acute hypoxic respiratory failure. 7. Volume overload. Plan: Maintain TPN per surgery. Diet per surgery. Continue to monitor renal function and urine output. Avoid nephrotoxins. Add IV Lasix 20 mg twice daily. Wean FiO2.
--- NOTE | 2024-04-18 11:35 | US ---
EXAMINATION TYPE: US chest DATE OF EXAM: 04/18/2024 COMPARISON: NONE CLINICAL INDICATION: Female, 88 years old with history of Markings for thoracentesis by pulmonary sta ff; pleural effusion TECHNIQUE: Targeted ultrasound of the posterior lower bilateral hemithoraces EXAM MEASUREMENTS: Right Pleural Effusion pocket size: 5.4 cm Right skin surface to fluid distance: 1.6 cm lung tissue visualized 2.7 cm in fluid pocket. Left Pleural Effusion pocket size: 4.7 cm Left skin surface to fluid distance: 1.2 cm lung tissue visualized 1.3 cm in fluid pocket. Right side marked for possible thoracentesis outside the dept. Pulmonologists are able to review the images in the patient?s EMR. IMPRESSIONS: Bilateral small pleural effusion.
[2024-04-18 11:41] LABS: Glucose,Whole Blood 140 mg/dL (70-110)
[2024-04-18] MEDS: FUROSEMIDE 10 MG/ML 2 ML VIAL IV SCH (11:42)
[2024-04-18 11:48] LABS: Basophils # (A) 0.1 k/uL (0-0.2); Basophils % (A) 0 %; Eosinophils % (A) 0 %; HCT 29.4 % (34.0-46.0); HGB 8.8 gm/dL (11.4-16.0); Hypochromasia Slight; Lymphocytes # (A) 1.3 k/uL (1.0-4.8); Lymphocytes % (A) 3 %; MCH 28.3 pg (25.0-35.0); MCV 94.4 fL (80.0-100.0); Mean Platelet Volume 9.7; Monocytes # (A) 0.8 k/uL (0-1.0); Monocytes % (A) 2 %; Neutrophils # (A) 38.4 k/uL (1.3-7.7); Neutrophils % (A) 94 %; Platelet Count 537 k/uL (150-450); RBC 3.11 m/uL (3.80-5.40); RDW 14.2 % (11.5-15.5); WBC 40.8 k/uL (3.8-10.6)
[2024-04-18 12:08] LABS: ALT 48 U/L (4-34); African American GFR (CKD) 45 (>60 ml/min/1.73 sqM); Albumin 2.3 g/dL (3.5-5.0); Alkaline Phosphatase 95 U/L (38-126); Anion Gap 6 mmol/L; Blood Urea Nitrogen 34 mg/dL (7-17); Calcium 7.8 mg/dL (8.4-10.2); Carbon Dioxide 23 mmol/L (22-30); Chloride 108 mmol/L (98-107); Glucose 153 mg/dL (74-99); Non-African American GFR(CKD) 39 (>60 ml/min/1.73 sqM); Potassium 3.9 mmol/L (3.5-5.1); Sodium 137 mmol/L (137-145); Total Bilirubin 0.8 mg/dL (0.2-1.3); Total Protein 4.6 g/dL (6.3-8.2)
--- NOTE | 2024-04-18 14:23 | P.PN ---
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 Patient white count is down to 17,000, creatinine 1.08 Objective - Vital Signs Vital signs: Vital Signs Temp 97.9 F 04/17/24 08:00 Pulse 73 04/17/24 18:25 Resp 19 04/17/24 17:56 BP 171/72 04/17/24 17:52 Pulse Ox 95 04/17/24 17:56 FiO2 30 04/14/24 09:51 Intake & Output 04/16/24 04/17/24 04/17/24 18:59 06:59 18:59 Intake Total 1888.560 350.838 456 Output Total 0956 320 0625 Balance 523.560 -589.162 -939 Weight 65.1 kg 65.1 kg Intake: IV 430 110 346 0.9 NS 130 110 70 Fat Emulsion 20% 250 ml @ 21 20.833 mls/hr IV MoTh [facility] Rx#:[id number] Fluconazole in NaCl,Iso- 50 Osm 100 mg In Saline 1 50ml.bag @ 50 mls/hr IVPB DAILY [facility] Rx#:[id number] Mvi, Adult No.4 with Vit 255 K 10 ml Trace (Conc-1Ml/ Dose) 1 ml Sodium Acetate 30 meq Potassium Chloride 40 meq Calcium Gluconate 1 gm Magnesium Sulfate gm 1 gm Potassium Phosphate 12 mmol In Amino Acid 5%-D15w 1,000 ml @ 40 mls/hr IV .Q24H [facility] Rx#:[id number] Sodium Phosphate 15 mmol 250 In Dextrose 5% in Water 250 ml @ 127.5 mls/hr IVPB ONCE ONE Rx#: [id number] Intake, IV Titration 1458.560 240.838 Amount Amiodarone 450 mg In 237.227 240.838 Dextrose 5% in Water 250 ml @ 0.5 MG/MIN 16.667 mls/hr IV .Q15H [facility] Rx#: [id number] Mvi, Adult No.4 with Vit 1121.333 K 10 ml Trace (Conc-1Ml/ Dose) 1 ml Sodium Acetate 30 meq Potassium Chloride 40 meq Calcium Gluconate 1 gm Magnesium Sulfate gm 1 gm Potassium Phosphate 12 mmol In Amino Acid 5%-D15w 1,000 ml @ 40 mls/hr IV .Q24H [facility] Rx#:[id number] Potassium Chloride 20 meq 100 In Water For Injection 1 100ml.bag @ 50 mls/hr IVPB ONCE STA Rx#: [id number] Oral 110 Output: Drainage 250 190 220 Lower Right Abdomen 10 10 Medial Abdomen 240 180 220 Urine 0987 [id number] 0572 Other: Voiding Method Indwelling Catheter Indwelling Catheter Indwelling Catheter # Bowel Movements 1 2 1 ABP, PAP, CO, CI - Last Documented Arterial Blood Pressure 90/59 - Exam GENERAL DESCRIPTION: An elderly female lying in bed in no distress RESPIRATORY SYSTEM: Unlabored breathing , decreased breath sounds at bases HEART: S1 S2 regular rate and rhythm , ABDOMEN: Soft , mild tenderness EXTREMITIES: No edema feet - Labs CBC & Chem 7: 04/18/24 11:34 04/18/24 11:34 Labs: Abnormal Lab Results - Last 24 Hours (Table) 04/16/24 04/17/24 04/17/24 Range/Units 18:29 00:17 05:31 WBC 17.0 H (3.8-10.6) k/uL RBC 3.24 L (3.80-5.40) m/uL Hgb 9.1 L (11.4-16.0) gm/dL Hct 30.1 L (34.0-46.0) % MCHC 30.1 L (31.0-37.0) g/dL Chloride (98-107) mmol/L BUN (7-17) mg/dL Creatinine (0.52-1.04) mg/dL Glucose (74-99) mg/dL POC Glucose (mg/dL) 155 H 165 H (70-110) mg/dL Calcium (8.4-10.2) mg/dL AST (14-36) U/L ALT (4-34) U/L Total Protein (6.3-8.2) g/dL Albumin (3.5-5.0) g/dL 04/17/24 04/17/24 04/17/24 Range/Units 05:31 06:15 12:01 WBC (3.8-10.6) k/uL RBC (3.80-5.40) m/uL Hgb (11.4-16.0) gm/dL Hct (34.0-46.0) % MCHC (31.0-37.0) g/dL Chloride 113 H (98-107) mmol/L BUN 28 H (7-17) mg/dL Creatinine 1.08 H (0.52-1.04) mg/dL Glucose 161 H (74-99) mg/dL POC Glucose (mg/dL) 159 H 183 H (70-110) mg/dL Calcium 7.7 L (8.4-10.2) mg/dL AST 46 H (14-36) U/L ALT 45 H (4-34) U/L Total Protein 4.3 L (6.3-8.2) g/dL Albumin 2.1 L (3.5-5.0) g/dL 04/17/24 Range/Units 18:09 WBC (3.8-10.6) k/uL RBC (3.80-5.40) m/uL Hgb (11.4-16.0) gm/dL Hct (34.0-46.0) % MCHC (31.0-37.0) g/dL Chloride (98-107) mmol/L BUN (7-17) mg/dL Creatinine (0.52-1.04) mg/dL Glucose (74-99) mg/dL POC Glucose (mg/dL) 132 H (70-110) mg/dL Calcium (8.4-10.2) mg/dL AST (14-36) U/L ALT (4-34) U/L Total Protein (6.3-8.2) g/dL Albumin (3.5-5.0) g/dL Microbiology - Last 24 Hours (Table) 04/12/24 16:05 Anaerobic Culture - Final Other - Other Assessment and Plan (1) Peritonitis Current Visit: Yes Status: Acute Code(s): K65.9 - PERITONITIS, UNSPECIFIED SNOMED Code(s): 02302331 (2) Leukocytosis Current Visit: Yes Status: Acute Code(s): D72.829 - ELEVATED WHITE BLOOD CELL COUNT, UNSPECIFIED SNOMED Code(s): 094735866 (3) Perforated duodenal ulcer Current Visit: Yes Status: Acute Code(s): K26.5 - CHRONIC OR UNSPECIFIED DUODENAL ULCER WITH PERFORATION SNOMED Code(s): 60908550 Plan: 1patient presented to hospital with abdominal pain constipation has been diagn osed with the pneumoperitoneum secondary to perforated duodenal ulcer status post laparotomy and repair of the perforated jejunal ulcer we will need to cover for gram-negative and yeast. 2patient upper GI that is suspicious for leak patient is status post reexploration with Billroth II gastrectomy with Myles-en-Y reconstruction along with abdominal cultures which are so far negative 3-patient patient is afebrile white count is trending down, patient will continue with the Zosyn and monitor clinical course closely Dictation was produced using [employer] dictation software. please excuse any gramma tical, word or spelling errors. Time with Patient: Less than 30
--- NOTE | 2024-04-18 14:25 | P.PN ---
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 Patient white count is up to 40.8 with a creatinine 1.22 abdominal culture remains to be negative Objective - Vital Signs Vital signs: Vital Signs Temp 98.1 F 04/18/24 11:56 Pulse 78 04/18/24 11:56 Resp 20 04/18/24 11:56 BP 123/58 04/18/24 11:56 Pulse Ox 96 04/18/24 08:40 FiO2 70 04/18/24 11:56 Intake & Output 04/17/24 04/18/24 04/18/24 18:59 06:59 18:59 Intake Total 889 12 4154.5 Output Total 1395 2120 40 Balance -939 -2100 969.5 Weight 65.1 kg 46.5 kg 46.5 kg Intake: IV 346 20 0.9 NS 70 10 Fat Emulsion 20% 250 ml @ 21 20.833 mls/hr IV MoTh [facility] Rx#:[id number] Invasive Line 6 10 Mvi, Adult No.4 with Vit 255 K 10 ml Trace (Conc-1Ml/ Dose) 1 ml Sodium Acetate 30 meq Potassium Chloride 40 meq Calcium Gluconate 1 gm Magnesium Sulfate gm 1 gm Potassium Phosphate 12 mmol In Amino Acid 5%-D15w 1,000 ml @ 40 mls/hr IV .Q24H [facility] Rx#:[id number] Intake, IV Titration 1009.5 Amount Mvi, Adult No.4 with Vit 1009.5 K 10 ml Trace (Conc-1Ml/ Dose) 1 ml Sodium Acetate 30 meq Potassium Chloride 40 meq Calcium Gluconate 1 gm Magnesium Sulfate gm 1 gm Potassium Phosphate 12 mmol In Amino Acid 5%-D15w 1,000 ml @ 45 mls/hr IV . [id number] [facility] Rx#:[id number] Oral 110 Output: Drainage 220 195 40 Lower Right Abdomen 10 0 Medial Abdomen 220 185 40 Urine 1175 1925 Other: Voiding Method Indwelling Catheter Indwelling Catheter Indwelling Catheter # Bowel Movements 1 ABP, PAP, CO, CI - Last Documented Arterial Blood Pressure 90/59 - Exam GENERAL DESCRIPTION: An elderly female lying in bed in no distress RESPIRATORY SYSTEM: Unlabored breathing , decreased breath sounds at bases HEART: S1 S2 regular rate and rhythm , ABDOMEN: Soft , mild tenderness EXTREMITIES: No edema feet - Labs CBC & Chem 7: 04/18/24 11:34 04/18/24 11:34 Labs: Abnormal Lab Results - Last 24 Hours (Table) 04/17/24 04/18/24 04/18/24 Range/Units 18:09 00:04 06:01 WBC (3.8-10.6) k/uL RBC (3.80-5.40) m/uL Hgb (11.4-16.0) gm/dL Hct (34.0-46.0) % MCHC (31.0-37.0) g/dL Plt Count (150-450) k/uL Neutrophils # (1.3-7.7) k/uL Sodium (137-145) mmol/L Chloride (98-107) mmol/L BUN (7-17) mg/dL Creatinine (0.52-1.04) mg/dL Glucose (74-99) mg/dL POC Glucose (mg/dL) 132 H 141 H 161 H (70-110) mg/dL Calcium (8.4-10.2) mg/dL AST (14-36) U/L ALT (4-34) U/L Total Protein (6.3-8.2) g/dL Albumin (3.5-5.0) g/dL 04/18/24 04/18/24 04/18/24 Range/Units 08:59 08:59 11:34 WBC 38.9 H 40.8 H (3.8-10.6) k/uL RBC 3.02 L 3.11 L (3.80-5.40) m/uL Hgb 9.0 L 8.8 L (11.4-16.0) gm/dL Hct 29.3 L 29.4 L (34.0-46.0) % MCHC 30.6 L 30.0 L (31.0-37.0) g/dL Plt Count 537 H (150-450) k/uL Neutrophils # 38.4 H (1.3-7.7) k/uL Sodium 136 L (137-145) mmol/L Chloride 109 H (98-107) mmol/L BUN 32 H (7-17) mg/dL Creatinine 1.22 H (0.52-1.04) mg/dL Glucose 153 H (74-99) mg/dL POC Glucose (mg/dL) (70-110) mg/dL Calcium 7.9 L (8.4-10.2) mg/dL AST 43 H (14-36) U/L ALT 45 H (4-34) U/L Total Protein 4.3 L (6.3-8.2) g/dL Albumin 2.1 L (3.5-5.0) g/dL 04/18/24 04/18/24 Range/Units 11:34 11:40 WBC (3.8-10.6) k/uL RBC (3.80-5.40) m/uL Hgb (11.4-16.0) gm/dL Hct (34.0-46.0) % MCHC (31.0-37.0) g/dL Plt Count (150-450) k/uL Neutrophils # (1.3-7.7) k/uL Sodium (137-145) mmol/L Chloride 108 H (98-107) mmol/L BUN 34 H (7-17) mg/dL Creatinine 1.22 H (0.52-1.04) mg/dL Glucose 153 H (74-99) mg/dL POC Glucose (mg/dL) 140 H (70-110) mg/dL Calcium 7.8 L (8.4-10.2) mg/dL AST (14-36) U/L ALT 48 H (4-34) U/L Total Protein 4.6 L (6.3-8.2) g/dL Albumin 2.3 L (3.5-5.0) g/dL Assessment and Plan (1) Peritonitis Current Visit: Yes Status: Acute Code(s): K65.9 - PERITONITIS, UNSPECIFIED SNOMED Code(s): 27395069 (2) Leukocytosis Current Visit: Yes Status: Acute Code(s): D72.829 - ELEVATED WHITE BLOOD CELL COUNT, UNSPECIFIED SNOMED Code(s): 634575360 (3) Perforated duodenal ulcer Current Visit: Yes Status: Acute Code(s): K26.5 - CHRONIC OR UNSPECIFIED DUODENAL ULCER WITH PERFORATION SNOMED Code(s): 81514063 Plan: 1patient presented to hospital with abdominal pain constipation has been diagnosed with the pneumoperitoneum secondary to perforated duodenal ulcer status post laparotomy and repair of the perforated jejunal ulcer we will need to cover for gram-negative and yeast. 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 please excuse any grammatical, word or spelling errors. Time with Patient: Greater than 30
--- NOTE | 2024-04-18 14:34 | P.PN ---
Subjective Progress Note Date: 04/18/24 This is an 88-year-old female, recent history of fall about 2 weeks ago, sustained bruising to her left ribs. Patient was brought in yesterday to the ER mostly with symptoms of weakness, failure to thrive, poor oral intake, and suspected dehydration. Patient was also complaining of cough and shortness of breath, no fever no chills, no nausea no vomiting. In addition the patient had no bowel movement for the last 4 days. Apparently the patient has been experiencing intermittent episodes of confusion for the last 1 year. Workup in the ER included a CT of the abdomen and pelvis, it showed pneumoperitoneum and free fluid. Patient was felt that she has ruptured viscus, she was seen by surgery and she underwent exploratory laparotomy for her pneumoperitoneum, and she was found to have perforated duodenal ulcer. Patient had modified Lee patch and postoperatively the patient was extubated nonetheless she was admitted to the ICU, and this consult was initiated. I saw the patient in the ICU this morning, she is on 4 L nasal cannula, does not seem to be in any distress. She is already on Zosyn, and I added Diflucan. She is on LR at 125 cc/h. Her WBC count is 28.6, electrolytes are normal hemoglobin is 10.7 BUN is 97 creatinine down to 2.45 from 3.27 yesterday. Progress note dated April 10, 2024. 88-year-old female seen yesterday in consultation. She was admitted on April 08, with confusion and weakness. The patient had a repair of a perforated duodenal ulcer on April 09. Today is postop day #1. She is currently seen today in room 261. She is currently on 6 L of oxygen by nasal cannula. She has an NG tube in place. She is getting lactated Ringer's at 125 cc an hour. For atrial fibrillation with a rapid ventricular response, she was started on Cardizem drip at 5 mg an hour, and amiodarone 0.5 mg/min. No new labs today other than a glucose of 154. The labs from yesterday are reviewed. White count was 28.6. Hemoglobin 10.7, platelet count was normal. BUN and creatinine were 97 and 2.45. Chest x-ray suggested bilateral pleural effusions. Progress note dated April 11, 2024. 88-year-old female seen today in room 261. The patient was admitted on April 08, with confusion and weakness. The patient was discovered to have a perforated duodenal ulcer, and had a surgical repair performed on April 09. Today is postop day #2. The patient is currently without distress. She is on room air. NG tube remains in place. She is getting lactated Ringer's at 75 cc an hour. Because of atrial fibrillation and RVR, she continues on amiodarone 0.5 mg/min, and Cardizem at 5 mg an hour. Lab data includes a white count 34.6, hemoglobin 9.1, hematocrit 36.6, and a platelet count 442,000. Sodium 143, potassium 4.1, chlorides 113, CO2 23, BUN 71, creatinine 1.64. Glucose is 134. Albumin is 2.3. Blood cultures are currently negative. No chest x-ray today has been ordered. Progress note dated April 12, 2024. This is an 88-year-old female who is seen in room 261. The patient was admitted back on April 08, with confusion and weakness. She was discovered to have a perforated duodenal ulcer, and had surgical repair performed on April 09. Today is postoperative day #3. The patient is going to have a upper GI study today. She is getting lactated Ringer's at 75 cc an hour, 3 L of oxygen by nasal cannula, Cardizem at 5 mg an hour, and amiodarone at 0.5 mg/min. White count was 37.4, hemoglobin 11.6, hematocrit 38.5, and platelet count was normal. Sodium 145, potassium 3.2, chloride 115, CO2 24, BUN 52, creatinine 1.26. Glucose 123. Calcium 8.2. BUN 2.2. Blood cultures are currently negative. The patient's chest x-ray is stable, with some basilar atelectasis on the right. Upper GI study showed a leak, at the site of patch placement, in the duodenal bulb. Progress note dated April 13, 2024. 88-year-old female seen today in room 261. The patient is postop day #1, status post Billroth II gastrectomy, and Myles-en-Y reconstruction. The patient is currently on the ventilator. Ventilator settings include volume assist-control, rate 16, tidal volume 350, FiO2 40%, PEEP of 5. Blood gases show pO2 128, pCO2 34, pH is 7.43. The blood gases were done on 50% FiO2. The patient is on lactated Ringer's at 75 cc an hour, amiodarone 0.5 mg/min, Cardizem at 5 mg/h, and propofol, is restarted at a low rate. Current labs include a white count 34.8, hemoglobin 9.5, hematocrit 32.2, and a platelet count of 325,000. Sodium 141, potassium 4, chloride 114, CO2 21, BUN 48, creatinine 1.51. Glucose is 133. Calcium is 7. Blood cultures are negative. Chest x-ray shows in addition to endotracheal tube, and central venous line, blunting of the costophrenic angles. Progress note dated April 14, 2024. 88-year-old female seen today in room 261. She is postop day #2, status post Billroth II gastrectomy and Myles-en-Y reconstruction. The patient is on the ventilator. She was maintained on the ventilator overnight. Currently, the patient is on volume assist-control, rate 16, tidal volume 350, FiO2 30%, PEEP of 5. Blood gases show pO2 of 148, pCO2 33, pH is 7.42. Blood gases were done on 40%. The patient continues on amiodarone at 0.5 mg/min, lactated Ringer's at 75 cc an hour, propofol at 35 mcg/kg/min, and TPN at 30 cc an hour, to be increased to 55 cc an hour. Current white count is 25.2, hemoglobin 9.5, hematocrit 35.5, platelet count 362,000. Sodium 142, potassium 3.3, chlorides 112, CO2 25, BUN 50, creatinine 1.83. Albumin level was 1.9. Chest x-ray is largely unchanged. Progress note dated April 15, 2024. The patient is seen again in room 261. The patient was successfully extubated yesterday, April 14. She is currently on room air. She is receiving a saline IV at KVO, and TPN at 40 cc an hour. Current labs include a white count 18.1, hemoglobin 8.9, hematocrit 27.4, and a platelet count of 334,000. Sodium 140, potassium 3.9, chlorides 114, CO2 23, BUN 46, and creatinine 1.36. Glucose is 170. Calcium is 7.2. Phosphorus is 1.9. Magnesium is 2.0. Progress note dated April 16, 2024. The patient is seen today in room 261. She is currently on room air. She continues on amiodarone at 0.5 mg/min. She is getting TPN at 40 cc an hour, and saline at KVO. She does continue on Zosyn. All her cultures are thus far negative. She has no specific complaints today. According to the nurse, she is a bit anxious. Current labs include a sodium 139, potassium 3.9, chlorides 114, CO2 23, BUN 35, and creatinine 1.15. Glucose is 178. Calcium 7.5, phosphorus 2.3, and magnesium is normal. Culture data is negative. Venous Doppler yesterday, shows a superficial venous thrombosis involving the cephalic vein, of the left upper extremity. On today's evaluation of 04/17/2024, the patient is being seen for a follow-up. The patient is recovering from her abdominal surgery. The patient undergone exploratory laparotomy and repair of a perforated duodenal ulcer and she is postop day #8 subsequent the patient required a bit to gastrectomy and the patient is this morning, the patient has awake and alert and she is currently on med oxygen. She is in normal sinus rhythm. She is on TPN which is running at a rate of 40 cc an hour. She remains on IV Zosyn. She is using the incentive spirometer. The patient has 2 SHRUTHI drains. The medial drain has drained approximately 180 cc of serous material and the right lower abdominal drain has put out approximately 10 cc. She has had paroxysmal atrial fibrillation. She remains on amiodarone running at 0.5 mg/min. The white cell count is at 17 with a hemoglobin 9.1 and a platelet count of 431. BUN is 28 with a creatinine of 1. Electrolytes are normal limits. LFTs are normal. Blood sugar is at 183. The patient remains on empiric antibiotic coverage with IV Zosyn. She is being given oral diet today. Should be able also to take her oral medication. Surgical abdominal wound scar is dry clean and intact. He is alert and awake and communicating. 04/18/2024, the patient is on BiPAP. The patient decompensated overnight and became hypoxic. Chest x-ray was done and the patient was found to have large bilateral pleural effusion the patient was given Lasix. Noted the patient was on room air oxygen prior to her being transferred to the medical floor. At that point, the patient was placed on a BiPAP. She was started on the Lasix. This morning, she remains on BiPAP at a pressure of over 5 cm of water and FiO2 was brought up to 70%. No chest pain. She is awake and alert and she is producing adequate amount of urine output. The white cell count is currently up to On her blood work 38.9 with a hemoglobin of 9 and a platelet count of 443. BUN is 32 with a creatinine of 1.2 and sodium levels of 136. I repeated her blood work again and her white cell count is up to 40 with a hemoglobin of 8.8. The patient got transferred to the intensive care unit. Immediately, I performed an ultrasound of the chest that showed bilateral pleural effusion and thoracentesis of the right lung was done, pending follow-up chest x-ray and a total of 600 cc of pleural fluid aspirated from the right lung. Hemodynamically stable. No hypotension. Remains on TPN. Remains on IV Zosyn. Remains on Lasix 20 mg IV every 12 hours. Awake and alert and communicating. Objective - Vital Signs Vital signs: Vital Signs Temp 98.4 F 04/18/24 08:00 Pulse 76 04/18/24 08:48 Resp 18 04/18/24 08:00 BP 128/59 04/18/24 08:00 Pulse Ox 96 04/18/24 08:40 FiO2 50 04/18/24 08:40 Intake & Output 04/17/24 04/18/24 04/18/24 18:59 06:59 18:59 Intake Total 456 20 Output Total 1395 2120 Balance -939 -2100 Weight 65.1 kg 46.5 kg Intake: IV 346 20 0.9 NS 70 10 Fat Emulsion 20% 250 ml @ 21 20.833 mls/hr IV MoTh LOULOU Rx#:[id number] Invasive Line 6 10 Mvi, Adult No.4 with Vit 255 K 10 ml Trace (Conc-1Ml/ Dose) 1 ml Sodium Acetate 30 meq Potassium Chloride 40 meq Calcium Gluconate 1 gm Magnesium Sulfate gm 1 gm Potassium Phosphate 12 mmol In Amino Acid 5%-D15w 1,000 ml @ 40 mls/hr IV .Q24H LOULOU Rx#:[id number] Oral 110 Output: Drainage 220 195 Lower Right Abdomen 10 Medial Abdomen 220 185 Urine 1175 1925 Other: Voiding Method Indwelling Catheter Indwelling Catheter # Bowel Movements 1 ABP, PAP, CO, CI - Last Documented Arterial Blood Pressure 90/59 - Exam No acute distress, awake and alert, in mild acute respiratory distress while being on a BiPAP. Sections of the BiPAP machine at this point in time. Not using accessory muscles of breathing. HEENT examination is grossly unremarkable. Neck supple. Full range of motion. No adenopathy thyromegaly or neck vein distention. Cardiovascular examination reveals an irregular rhythm and rate. S1-S2 normal. No S3 or S4. No discernible murmur noted. Lungs reveal rhonchi. No wheezes or crackles. Breath sounds are quite diminished in lung bases and there is also dullness to question. The patient has thoracic kyphosis. Abdomen soft, without bowel sounds. Abdominal incision is dressed. The patient has SHRUTHI drains in place, output is minimal at this point in time. No significant abdominal distention. Positive bowel sounds. SHRUTHI drains are in place and serous output is noted. Extremities are intact. No cyanosis clubbing or edema. Skin is without rash or lesion. Neurologic examination is brief but nonfocal. - Labs CBC & Chem 7: 04/18/24 11:34 04/18/24 11:34 Labs: Abnormal Lab Results - Last 24 Hours (Table) 04/17/24 04/17/24 04/18/24 Range/Units 12:01 18:09 00:04 WBC (3.8-10.6) k/uL RBC (3.80-5.40) m/uL Hgb (11.4-16.0) gm/dL Hct (34.0-46.0) % MCHC (31.0-37.0) g/dL Sodium (137-145) mmol/L Chloride (98-107) mmol/L BUN (7-17) mg/dL Creatinine (0.52-1.04) mg/dL Glucose (74-99) mg/dL POC Glucose (mg/dL) 183 H 132 H 141 H (70-110) mg/dL Calcium (8.4-10.2) mg/dL AST (14-36) U/L ALT (4-34) U/L Total Protein (6.3-8.2) g/dL Albumin (3.5-5.0) g/dL 04/18/24 04/18/24 04/18/24 Range/Units 06:01 08:59 08:59 WBC 38.9 H (3.8-10.6) k/uL RBC 3.02 L (3.80-5.40) m/uL Hgb 9.0 L (11.4-16.0) gm/dL Hct 29.3 L (34.0-46.0) % MCHC 30.6 L (31.0-37.0) g/dL Sodium 136 L (137-145) mmol/L Chloride 109 H (98-107) mmol/L BUN 32 H (7-17) mg/dL Creatinine 1.22 H (0.52-1.04) mg/dL Glucose 153 H (74-99) mg/dL POC Glucose (mg/dL) 161 H (70-110) mg/dL Calcium 7.9 L (8.4-10.2) mg/dL AST 43 H (14-36) U/L ALT 45 H (4-34) U/L Total Protein 4.3 L (6.3-8.2) g/dL Albumin 2.1 L (3.5-5.0) g/dL Assessment and Plan Plan: Acute hypoxic respiratory failure and the patient is currently on a BiPAP pressures of 12/5 and FiO2 of 70%. Patient has developed bilateral pleural effusion and pulmonary edema Bilateral pleural effusions, currently on Lasix. Rule out decompensated heart failure. Acute leukocytosis, rule out septic event. Possibility of anastomotic leak cannot be completely excluded. Currently on IV Zosyn. Postoperative day # 9, S/P exploratory laparotomy, repair of perforated duodenal ulcer, and application of a modified Lee patch. Upper GI series, showing leak, at the site of the modified Lee patch. Postoperative day # 6, status post Billroth II gastrectomy, and Myles-en-Y reconstruction. The patient remains on TPN for nutritional support. Acute hypoxic respiratory failure, recovered and the patient was extubated on 04/14/2024. The patient was room air oxygen and the patient got transferred to the medical floor to be readmitted back to the ICU with BiPAP dependent respiratory failure. Acute abdominal sepsis, secondary to above and the patient is currently on IV Zosyn Acute atrial fibrillation, with rapid ventricular response. The cardiac rhythm is back to sinus and the patient oral amiodarone History of splenic hematoma, without rupture. The patient is currently on no anticoagulants Acute dehydration with acute kidney injury. Recovered and the patient renal function is normal Nonanion gap metabolic acidosis, recovered Hypovolemic hyponatremia, recovered. General medical debility. Plan: Keep the patient on BiPAP for now for respiratory support continue Lasix 20 mg IV push every 12 hours Thoracentesis of the right lung was done CAT scan of the chest and abdomen once the patient is more stable Monitor the output from the SHRUTHI drain and general surgery is on the case Surgical scar is dry clean and intact Send this is a blood cultures x 2 and start the patient on vancomycin in conjunction with Zosyn Adequate pain control Cardiac rhythm is sinus Will continue to follow. Condition is critical and the patient will be kept in the intensive care unit. Will continue to follow. This evaluation was done more than 30 minutes. Time with Patient: Greater than 30
[2024-04-18] MEDS ORDERED: VANCOMYCIN IV PER PHARMACY 1 EACH MISC MISCELLANE PRN (14:35)
--- NOTE | 2024-04-18 14:35 | P.PCN ---
Date of Procedure: 04/18/24 Preoperative Diagnosis: Bilateral pleural effusion Postoperative Diagnosis: Bilateral pleural effusion Procedure(s) Performed: Right-sided thoracentesis Anesthesia: local Surgeon: Oscar Moreno Estimated Blood Loss (ml): 0 Pathology: other Condition: critical Disposition: ICU Operative Findings: A time out was performed and the chest x-ray was reviewed, the appropriate side was confirmed and marked. My hands were washed immediately prior to the procedure. I wore a surgical cap, mask with protective eyewear, sterile gown and sterile gloves throughout the procedure. The patient was prepped and draped in a sterile manner using chlorhexidine scrub after the appropriate level was percussed and confirmed by ultrasound. 1% lidocaine was used to anesthesize the skin, subcutaneous tissue, superior aspect of the rib periosteum and parietal pleura. A finder needle was then introduced over the superior aspect of the rib to locate the pleural fluid; 2colored fluid was aspirated at a depth of approximately 2 cm. A 10-blade scalpel was used to sandrine the skin at the insertion site. The [id number]-[id number] needle was then introduced through the skin incision into the pleural space using negative aspiration pressure and the red colometric indicator to confirm appropriate positioning of the needle. The thoracentesis catheter was then threaded without difficulty. 600ml of turbid colored fluid was removed without difficulty. The catheter was then removed. No immediate complications were noted during the procedure. A post-procedure chest x-ray is pending at the time of this note. The fluid will be sent for studies. Estimated blood loss is 0cc
--- NOTE | 2024-04-18 14:50 | XR ---
EXAMINATION TYPE: XR chest 1V portable DATE OF EXAM: 04/18/2024 COMPARISON: 04/18/2024 HISTORY: Post right thoracentesis TECHNIQUE: Single frontal view of the chest is obtained. FINDINGS: No sizable pneumothorax. Interval reduction in amount of fluid on the right with persisten t small bilateral effusions. Diffuse interstitial pattern correlate for CHF. Heart size stable. Centr al line stable. Atherosclerotic change aorta. Osteopenia and degenerative change spine. IMPRESSION: 1. Interval reduction in the amount of pleural fluid on the right with no sizable pneumothorax. 2. Bibasilar consolidation and small pleural effusion stable. Correlate for mild CHF.
[2024-04-18 14:52] LABS: Glucose,Whole Blood 162 mg/dL (70-110)
--- NOTE | 2024-04-18 15:14 | P.PN ---
Subjective Progress Note Date: 04/18/24 Principal diagnosis: Perforated duodenal ulcer Patient was transferred to the ICU this morning because of shortness of breath. Her white blood cell count had increased significantly this morning from yesterday. Thoracentesis took place. Patient says she has mild right-sided p ain. Both right and left-sided drains serosanguineous. She is afebrile. Objective - Vital Signs Vital signs: Vital Signs Temp 98.1 F 04/18/24 11:56 Pulse 78 04/18/24 11:56 Resp 20 04/18/24 11:56 BP 123/58 04/18/24 11:56 Pulse Ox 96 04/18/24 08:40 FiO2 70 04/18/24 11:56 Intake & Output 04/17/24 04/18/24 04/18/24 18:59 06:59 18:59 Intake Total 051 38 4990.5 Output Total 1395 2120 40 Balance -939 -2100 969.5 Weight 65.1 kg 46.5 kg 46.5 kg Intake: IV 346 20 0.9 NS 70 10 Fat Emulsion 20% 250 ml @ 21 20.833 mls/hr IV MoTh LOULOU Rx#:[id number] Invasive Line 6 10 Mvi, Adult No.4 with Vit 255 K 10 ml Trace (Conc-1Ml/ Dose) 1 ml Sodium Acetate 30 meq Potassium Chloride 40 meq Calcium Gluconate 1 gm Magnesium Sulfate gm 1 gm Potassium Phosphate 12 mmol In Amino Acid 5%-D15w 1,000 ml @ 40 mls/hr IV .Q24H LOULOU Rx#:[id number] Intake, IV Titration 1009.5 Amount Mvi, Adult No.4 with Vit 1009.5 K 10 ml Trace (Conc-1Ml/ Dose) 1 ml Sodium Acetate 30 meq Potassium Chloride 40 meq Calcium Gluconate 1 gm Magnesium Sulfate gm 1 gm Potassium Phosphate 12 mmol In Amino Acid 5%-D15w 1,000 ml @ 45 mls/hr IV . [id number] LOULOU Rx#:[id number] Oral 110 Output: Drainage 220 195 40 Lower Right Abdomen 10 0 Medial Abdomen 220 185 40 Urine 1175 1925 Other: Voiding Method Indwelling Catheter Indwelling Catheter Indwelling Catheter # Bowel Movements 1 ABP, PAP, CO, CI - Last Documented Arterial Blood Pressure 90/59 - Exam Abdomen: Soft, minimal distention, mild incisional and right-sided tenderness, both drains serous - Labs CBC & Chem 7: 04/18/24 11:34 04/18/24 11:34 Labs: Abnormal Lab Results - Last 24 Hours (Table) 04/17/24 04/18/24 04/18/24 Range/Units 18:09 00:04 06:01 WBC (3.8-10.6) k/uL RBC (3.80-5.40) m/uL Hgb (11.4-16.0) gm/dL Hct (34.0-46.0) % MCHC (31.0-37.0) g/dL Plt Count (150-450) k/uL Neutrophils # (1.3-7.7) k/uL Sodium (137-145) mmol/L Chloride (98-107) mmol/L BUN (7-17) mg/dL Creatinine (0.52-1.04) mg/dL Glucose (74-99) mg/dL POC Glucose (mg/dL) 132 H 141 H 161 H (70-110) mg/dL Calcium (8.4-10.2) mg/dL AST (14-36) U/L ALT (4-34) U/L Total Protein (6.3-8.2) g/dL Albumin (3.5-5.0) g/dL 04/18/24 04/18/24 04/18/24 Range/Units 08:59 08:59 11:34 WBC 38.9 H 40.8 H (3.8-10.6) k/uL RBC 3.02 L 3.11 L (3.80-5.40) m/uL Hgb 9.0 L 8.8 L (11.4-16.0) gm/dL Hct 29.3 L 29.4 L (34.0-46.0) % MCHC 30.6 L 30.0 L (31.0-37.0) g/dL Plt Count 537 H (150-450) k/uL Neutrophils # 38.4 H (1.3-7.7) k/uL Sodium 136 L (137-145) mmol/L Chloride 109 H (98-107) mmol/L BUN 32 H (7-17) mg/dL Creatinine 1.22 H (0.52-1.04) mg/dL Glucose 153 H (74-99) mg/dL POC Glucose (mg/dL) (70-110) mg/dL Calcium 7.9 L (8.4-10.2) mg/dL AST 43 H (14-36) U/L ALT 45 H (4-34) U/L Total Protein 4.3 L (6.3-8.2) g/dL Albumin 2.1 L (3.5-5.0) g/dL 04/18/24 04/18/24 04/18/24 Range/Units 11:34 11:40 12:51 WBC (3.8-10.6) k/uL RBC (3.80-5.40) m/uL Hgb (11.4-16.0) gm/dL Hct (34.0-46.0) % MCHC (31.0-37.0) g/dL Plt Count (150-450) k/uL Neutrophils # (1.3-7.7) k/uL Sodium (137-145) mmol/L Chloride 108 H (98-107) mmol/L BUN 34 H (7-17) mg/dL Creatinine 1.22 H (0.52-1.04) mg/dL Glucose 153 H (74-99) mg/dL POC Glucose (mg/dL) 140 H 162 H (70-110) mg/dL Calcium 7.8 L (8.4-10.2) mg/dL AST (14-36) U/L ALT 48 H (4-34) U/L Total Protein 4.6 L (6.3-8.2) g/dL Albumin 2.3 L (3.5-5.0) g/dL Assessment and Plan (1) Perforated duodenal ulcer Narrative/Plan: Patient with recurrent leukocytosis. Patient with shortness of breath improved after thoracentesis. Continue antibiotics. Check repeat cultures. Keep n.p.o. except for ice chips and sips. Current Visit: Yes Status: Acute Code(s): K26.5 - CHRONIC OR UNSPECIFIED DU ODENAL ULCER WITH PERFORATION SNOMED Code(s): 69453769
[2024-04-18] MEDS: VANCOMYCIN 750 MG in SODIUM CHLORIDE 0.9% 250 ML IVPB ONE (16:31)
[2024-04-18] MEDS: ANIDULAFUNGIN 200 MG in SODIUM CHLORIDE 0.9% 200 ML IVPB ONE (16:31)
[2024-04-18 17:16] LABS: AST 43 U/L (14-36)
[2024-04-18 17:35] LABS: Glucose,Whole Blood 169 mg/dL (70-110)
[2024-04-18 19:02] LABS: Appearance,BF Slightly Hazy (Clear)
[2024-04-19 00:16] LABS: Glucose, BF Source Pleural fluid; Glucose, Body Fluid 189 mg/dL; LDH, Body Fluid Source Pleural fluid; T. Protein, Body Fluid Source Pleural fluid; Total Protein, Body Fluid 1750 mg/dL
[2024-04-19 01:13] LABS: Glucose,Whole Blood 216 mg/dL (70-110)
[2024-04-19] MEDS: SODIUM ACETATE IV SCH (05:00)
[2024-04-19] MEDS: [UNRECOGNIZED DRUG - OTHER] IV SCH (05:00)
[2024-04-19] MEDS: CALCIUM GLUCONATE IV SCH (05:00)
[2024-04-19] MEDS: POTASSIUM CHLORIDE IV SCH (05:00)
[2024-04-19 06:29] LABS: Glucose,Whole Blood 200 mg/dL (70-110)
--- NOTE | 2024-04-19 07:32 | XR ---
EXAMINATION TYPE: XR chest 1V portable DATE OF EXAM: 04/19/2024 COMPARISON: 04/18/2024 HISTORY: Shortness of breath TECHNIQUE: Single frontal view of the chest is obtained. FINDINGS: No sizable pneumothorax. Stable persistent small bilateral effusions. Diffuse interstitial pattern correlate for CHF. Heart size stable. Central line stable. Atherosclerotic change aorta. Ost eopenia and degenerative change spine. IMPRESSION: Stable bilateral pleural-parenchymal changes correlate for CHF otherwise consider pneumo ruddy.
[2024-04-19 07:41] LABS: ALT 34 U/L (4-34); AST 35 U/L (14-36); African American GFR (CKD) 43 (>60 ml/min/1.73 sqM); Alkaline Phosphatase 84 U/L (38-126); Anion Gap 4 mmol/L; Blood Urea Nitrogen 40 mg/dL (7-17); Calcium 7.8 mg/dL (8.4-10.2); Carbon Dioxide 24 mmol/L (22-30); Chloride 109 mmol/L (98-107); Glucose 170 mg/dL (74-99); Magnesium 1.9 mg/dL (1.6-2.3); Non-African American GFR(CKD) 37 (>60 ml/min/1.73 sqM); Phosphorus 3.2 mg/dL (2.5-4.5); Potassium 3.6 mmol/L (3.5-5.1); Sodium 137 mmol/L (137-145); Total Bilirubin 0.6 mg/dL (0.2-1.3); Total Protein 4.2 g/dL (6.3-8.2)
[2024-04-19 07:47] LABS: HCT 23.4 % (34.0-46.0); HGB 7.5 gm/dL (11.4-16.0); MCH 29.4 pg (25.0-35.0); MCHC 31.9 g/dL (31.0-37.0); Mean Platelet Volume 9.8; Platelet Count 393 k/uL (150-450); RBC 2.55 m/uL (3.80-5.40); RDW 14.2 % (11.5-15.5); WBC 21.5 k/uL (3.8-10.6)
--- NOTE | 2024-04-19 08:52 | P.PN ---
Subjective Principal diagnosis: Shortness of breath Patient is status post perforated duodenal ulcer with repair. She was transferred to ICU secondary to shortness of breath. Thoracentesis was done. Results are noted. She seems to be in decreased respiratory distress than yesterday. No nausea, vomiting or diarrhea stated. She is n.p.o. except ice chips. Objective - Vital Signs Vital signs: Vital Signs Temp 98.3 F 04/19/24 04:00 Pulse 73 04/19/24 07:00 Resp 16 04/19/24 07:00 BP 120/60 04/19/24 07:00 Pulse Ox 96 04/19/24 07:00 FiO2 70 04/18/24 14:00 Intake & Output 04/18/24 04/19/24 04/19/24 18:59 06:59 18:59 Intake Total 1869.5 795 70 Output Total 735 1345 50 Balance 1134.5 -550 20 Weight 46.5 kg 62.2 kg Intake: IV 500 735 70 0.9 NS 110 10 Anidulafungin 200 mg In 200 Sodium Chloride 0.9% 200 ml @ 84 mls/hr IVPB ONCE ONE Rx#:[id number] Mvi, Adult No.4 with Vit 405 K 10 ml Trace (Conc-1Ml/ Dose) 1 ml Sodium Acetate 30 meq Potassium Chloride 40 meq Calcium Gluconate 1 gm Magnesium Sulfate gm 1 gm Potassium Phosphate 12 mmol In Amino Acid 5%-D15w 1,000 ml @ 45 mls/hr IV . [id number] [facility] Rx#:[id number] Piperacillin-Tazobactam 3 100 100 .375 gm In Sodium Chloride 0.9% 100 ml @ 25 mls/hr IVPB Q8H [facility] Rx#: [id number] Sodium Acetate 30 meq 120 60 Potassium Chloride 40 meq Calcium Gluconate 1 gm Magnesium Sulfate gm 1 gm In Amino Acid 5%-D15w 1, 000 ml @ 60 mls/hr IV .BY DURATION [facility] Rx#: [id number] Vancomycin 200 Intake, IV Titration 1369.5 60 Amount Mvi, Adult No.4 with Vit 360 60 K 10 ml Trace (Conc-1Ml/ Dose) 1 ml Sodium Acetate 30 meq Potassium Chloride 40 meq Calcium Gluconate 1 gm Magnesium Sulfate gm 1 gm In Amino Acid 5%-D15w 1,000 ml @ 60 mls/hr IV .BY DURATION [facility] Rx#:[id number] Mvi, Adult No.4 with Vit 1009.5 K 10 ml Trace (Conc-1Ml/ Dose) 1 ml Sodium Acetate 30 meq Potassium Chloride 40 meq Calcium Gluconate 1 gm Magnesium Sulfate gm 1 gm Potassium Phosphate 12 mmol In Amino Acid 5%-D15w 1,000 ml @ 45 mls/hr IV . [id number] [facility] Rx#:[id number] Output: Drainage 60 70 Lower Right Abdomen 0 10 Medial Abdomen 60 60 Urine 675 1275 50 Other: Voiding Method Indwelling Catheter Indwelling Catheter # Bowel Movements 1 ABP, PAP, CO, CI - Last Documented Arterial Blood Pressure 90/59 - Constitutional General appearance: Present: thin - EENT Eyes: Absent: abnormal pupil - Respiratory Respiratory: bilateral: diminished - Cardiovascular Rhythm: regular Heart sounds: normal: S1, S2 Abnormal Heart Sounds: Absent: S3 Gallop - Integumentary Integumentary: Absent: cellulitis - Psychiatric Psychiatric: Present: A&O x's 3, appropriate affect - Labs CBC & Chem 7: 04/19/24 06:12 04/19/24 06:12 Labs: Abnormal Lab Results - Last 24 Hours (Table) 04/18/24 04/18/24 04/18/24 Range/Units 08:59 08:59 11:34 WBC 38.9 H 40.8 H (3.8-10.6) k/uL RBC 3.02 L 3.11 L (3.80-5.40) m/uL Hgb 9.0 L 8.8 L (11.4-16.0) gm/dL Hct 29.3 L 29.4 L (34.0-46.0) % MCHC 30.6 L 30.0 L (31.0-37.0) g/dL Plt Count 537 H (150-450) k/uL Neutrophils # 38.4 H (1.3-7.7) k/uL Sodium 136 L (137-145) mmol/L Chloride 109 H (98-107) mmol/L BUN 32 H (7-17) mg/dL Creatinine 1.22 H (0.52-1.04) mg/dL Glucose 153 H (74-99) mg/dL POC Glucose (mg/dL) (70-110) mg/dL Calcium 7.9 L (8.4-10.2) mg/dL AST 43 H (14-36) U/L ALT 45 H (4-34) U/L Total Protein 4.3 L (6.3-8.2) g/dL Albumin 2.1 L (3.5-5.0) g/dL Fluid Appearance (Clear) 04/18/24 04/18/24 04/18/24 Range/Units 11:34 11:40 12:51 WBC (3.8-10.6) k/uL RBC (3.80-5.40) m/uL Hgb (11.4-16.0) gm/dL Hct (34.0-46.0) % MCHC (31.0-37.0) g/dL Plt Count (150-450) k/uL Neutrophils # (1.3-7.7) k/uL Sodium (137-145) mmol/L Chloride 108 H (98-107) mmol/L BUN 34 H (7-17) mg/dL Creatinine 1.22 H (0.52-1.04) mg/dL Glucose 153 H (74-99) mg/dL POC Glucose (mg/dL) 140 H 162 H (70-110) mg/dL Calcium 7.8 L (8.4-10.2) mg/dL AST 43 H (14-36) U/L ALT 48 H (4-34) U/L Total Protein 4.6 L (6.3-8.2) g/dL Albumin 2.3 L (3.5-5.0) g/dL Fluid Appearance (Clear) 04/18/24 04/18/24 04/18/24 Range/Units 14:41 17:33 23:11 WBC (3.8-10.6) k/uL RBC (3.80-5.40) m/uL Hgb (11.4-16.0) gm/dL Hct (34.0-46.0) % MCHC (31.0-37.0) g/dL Plt Count (150-450) k/uL Neutrophils # (1.3-7.7) k/uL Sodium (137-145) mmol/L Chloride (98-107) mmol/L BUN (7-17) mg/dL Creatinine (0.52-1.04) mg/dL Glucose (74-99) mg/dL POC Glucose (mg/dL) 169 H 216 H (70-110) mg/dL Calcium (8.4-10.2) mg/dL AST (14-36) U/L ALT (4-34) U/L Total Protein (6.3-8.2) g/dL Albumin (3.5-5.0) g/dL Fluid Appearance Slightly Hazy A (Clear) 04/19/24 04/19/24 04/19/24 Range/Units 06:12 06:12 06:27 WBC 21.5 H (3.8-10.6) k/uL RBC 2.55 L (3.80-5.40) m/uL Hgb 7.5 L (11.4-16.0) gm/dL Hct 23.4 L (34.0-46.0) % MCHC (31.0-37.0) g/dL Plt Count (150-450) k/uL Neutrophils # (1.3-7.7) k/uL Sodium (137-145) mmol/L Chloride 109 H (98-107) mmol/L BUN 40 H (7-17) mg/dL Creatinine 1.29 H (0.52-1.04) mg/dL Glucose 170 H (74-99) mg/dL POC Glucose (mg/dL) 200 H (70-110) mg/dL Calcium 7.8 L (8.4-10.2) mg/dL AST (14-36) U/L ALT (4-34) U/L Total Protein 4.2 L (6.3-8.2) g/dL Albumin 2.0 L (3.5-5.0) g/dL Fluid Appearance (Clear) Microbiology - Last 24 Hours (Table) 04/18/24 14:41 Gram Stain - Preliminary Pleural Fluid Body Fluid Culture - Preliminary Assessment and Plan (1) Dehydration Current Visit: Yes Status: Acute Code(s): E86.0 - DEHYDRATION SNOMED Code(s): 72978416 (2) Perforated duodenal ulcer Current Visit: Yes Status: Acute Code(s): K26.5 - CHRONIC OR UNSPECIFIED DUODENAL ULCER WITH PERFORATION SNOMED Code(s): 40352582 (3) Peritonitis Current Visit: Yes Status: Acute Code(s): K65.9 - PERITONITIS, UNSPECIFIED SNOMED Code(s): 65250225 (4) Fall Current Visit: No Status: Acute Code(s): W19.XXXA - UNSPECIFIED FALL, INITIAL ENCOUNTER SNOMED Code(s): 4563389 (5) Ribs, multiple fractures Current Visit: No Status: Acute Code(s): S22.49XA - MULTIPLE FRACTURES OF RIBS, UNSP SIDE, INIT FOR CLOS FX SNOMED Code(s): 0038599 Plan: Continue current regimen of treatment. Slowly healing from peritonitis from duodenal ulcer perforation. Check appropriate laboratories per ICU protocol CBC CMP. Will continue to follow. Time with Patient: Greater than 30
[2024-04-19] MEDS: ANIDULAFUNGIN 100 MG in SODIUM CHLORIDE 0.9% 100 ML IVPB SCH (09:42)
--- NOTE | 2024-04-19 11:34 | P.PN ---
Subjective Patient is seen in follow-up for acute kidney injury. Receiving TPN. Transferred back to ICU due to shortness of breath. Currently on nasal cannula. Feeling better overall. On IV Lasix. Nonoliguric. Vital signs are stable. General: No acute distress. HEENT: Head exam is unremarkable. On nasal cannula. LUNGS: No audible rhonchi or wheezes. HEART: Rate and Rhythm are regular. ABDOMEN: Nontender. SHRUTHI drain noted. EXTREMITITES: Trace edema. Objective - Vital Signs Vital signs: Vital Signs Temp 98.4 F 04/19/24 08:00 Pulse 77 04/19/24 10:00 Resp 26 H 04/19/24 10:00 BP 126/57 04/19/24 10:00 Pulse Ox 90 L 04/19/24 10:00 FiO2 70 04/18/24 14:00 Intake & Output 04/18/24 04/19/24 04/19/24 18:59 06:59 18:59 Intake Total 1869.5 795 480 Output Total 735 1345 350 Balance 1134.5 -550 130 Weight 46.5 kg 62.2 kg Intake: IV 500 735 480 0.9 NS 110 40 Anidulafungin 200 mg In 200 200 Sodium Chloride 0.9% 200 ml @ 84 mls/hr IVPB ONCE ONE Rx#:[id number] Mvi, Adult No.4 with Vit 405 K 10 ml Trace (Conc-1Ml/ Dose) 1 ml Sodium Acetate 30 meq Potassium Chloride 40 meq Calcium Gluconate 1 gm Magnesium Sulfate gm 1 gm Potassium Phosphate 12 mmol In Amino Acid 5%-D15w 1,000 ml @ 45 mls/hr IV . [id number] [facility] Rx#:[id number] Piperacillin-Tazobactam 3 100 100 .375 gm In Sodium Chloride 0.9% 100 ml @ 25 mls/hr IVPB Q8H [facility] Rx#: [id number] Sodium Acetate 30 meq 120 240 Potassium Chloride 40 meq Calcium Gluconate 1 gm Magnesium Sulfate gm 1 gm In Amino Acid 5%-D15w 1, 000 ml @ 60 mls/hr IV .BY DURATION [facility] Rx#: [id number] Vancomycin 200 Intake, IV Titration 1369.5 60 Amount Mvi, Adult No.4 with Vit 360 60 K 10 ml Trace (Conc-1Ml/ Dose) 1 ml Sodium Acetate 30 meq Potassium Chloride 40 meq Calcium Gluconate 1 gm Magnesium Sulfate gm 1 gm In Amino Acid 5%-D15w 1,000 ml @ 60 mls/hr IV .BY DURATION [facility] Rx#:[id number] Mvi, Adult No.4 with Vit 1009.5 K 10 ml Trace (Conc-1Ml/ Dose) 1 ml Sodium Acetate 30 meq Potassium Chloride 40 meq Calcium Gluconate 1 gm Magnesium Sulfate gm 1 gm Potassium Phosphate 12 mmol In Amino Acid 5%-D15w 1,000 ml @ 45 mls/hr IV . [id number] [facility] Rx#:[id number] Output: Drainage 60 70 Lower Right Abdomen 0 10 Medial Abdomen 60 60 Urine 675 1275 350 Other: Voiding Method Indwelling Catheter Indwelling Catheter # Bowel Movements 1 ABP, PAP, CO, CI - Last Documented Arterial Blood Pressure 90/59 - Labs CBC & Chem 7: 04/19/24 06:12 04/19/24 06:12 Labs: Abnormal Lab Results - Last 24 Hours (Table) 04/18/24 04/18/24 04/18/24 Range/Units 11:34 11:34 11:40 WBC 40.8 H (3.8-10.6) k/uL RBC 3.11 L (3.80-5.40) m/uL Hgb 8.8 L (11.4-16.0) gm/dL Hct 29.4 L (34.0-46.0) % MCHC 30.0 L (31.0-37.0) g/dL Plt Count 537 H (150-450) k/uL Neutrophils # 38.4 H (1.3-7.7) k/uL Chloride 108 H (98-107) mmol/L BUN 34 H (7-17) mg/dL Creatinine 1.22 H (0.52-1.04) mg/dL Glucose 153 H (74-99) mg/dL POC Glucose (mg/dL) 140 H (70-110) mg/dL Calcium 7.8 L (8.4-10.2) mg/dL AST 43 H (14-36) U/L ALT 48 H (4-34) U/L Total Protein 4.6 L (6.3-8.2) g/dL Albumin 2.3 L (3.5-5.0) g/dL Fluid Appearance (Clear) 04/18/24 04/18/24 04/18/24 Range/Units 12:51 14:41 17:33 WBC (3.8-10.6) k/uL RBC (3.80-5.40) m/uL Hgb (11.4-16.0) gm/dL Hct (34.0-46.0) % MCHC (31.0-37.0) g/dL Plt Count (150-450) k/uL Neutrophils # (1.3-7.7) k/uL Chloride (98-107) mmol/L BUN (7-17) mg/dL Creatinine (0.52-1.04) mg/dL Glucose (74-99) mg/dL POC Glucose (mg/dL) 162 H 169 H (70-110) mg/dL Calcium (8.4-10.2) mg/dL AST (14-36) U/L ALT (4-34) U/L Total Protein (6.3-8.2) g/dL Albumin (3.5-5.0) g/dL Fluid Appearance Slightly Hazy A (Clear) 04/18/24 04/19/24 04/19/24 Range/Units 23:11 06:12 06:12 WBC 21.5 H (3.8-10.6) k/uL RBC 2.55 L (3.80-5.40) m/uL Hgb 7.5 L (11.4-16.0) gm/dL Hct 23.4 L (34.0-46.0) % MCHC (31.0-37.0) g/dL Plt Count (150-450) k/uL Neutrophils # (1.3-7.7) k/uL Chloride 109 H (98-107) mmol/L BUN 40 H (7-17) mg/dL Creatinine 1.29 H (0.52-1.04) mg/dL Glucose 170 H (74-99) mg/dL POC Glucose (mg/dL) 216 H (70-110) mg/dL Calcium 7.8 L (8.4-10.2) mg/dL AST (14-36) U/L ALT (4-34) U/L Total Protein 4.2 L (6.3-8.2) g/dL Albumin 2.0 L (3.5-5.0) g/dL Fluid Appearance (Clear) 04/19/24 Range/Units 06:27 WBC (3.8-10.6) k/uL RBC (3.80-5.40) m/uL Hgb (11.4-16.0) gm/dL Hct (34.0-46.0) % MCHC (31.0-37.0) g/dL Plt Count (150-450) k/uL Neutrophils # (1.3-7.7) k/uL Chloride (98-107) mmol/L BUN (7-17) mg/dL Creatinine (0.52-1.04) mg/dL Glucose (74-99) mg/dL POC Glucose (mg/dL) 200 H (70-110) mg/dL Calcium (8.4-10.2) mg/dL AST (14-36) U/L ALT (4-34) U/L Total Protein (6.3-8.2) g/dL Albumin (3.5-5.0) g/dL Fluid Appearance (Clear) Microbiology - Last 24 Hours (Table) 04/18/24 14:41 Gram Stain - Preliminary Pleural Fluid Body Fluid Culture - Preliminary Assessment and Plan Plan: Assessment: 1. Acute kidney injury secondary to hemodynamic ATN. Renal function worse from diuresis. Creatinine stable at 1.29 today. Unknown baseline renal function. UA fairly benign. No hydronephrosis noted on kidney ultrasound. 2. A-fib with RVR status post amiodarone drip. Now on oral amiodarone and Lopressor. 3. Perforated duodenal ulcer status post exploratory laparotomy with modified Lee patch April 09, 2024 with reexploration on April 12, 2024. Surgery following. 4. Metabolic acidosis secondary to acute kidney injury. Stable. 5. Hypophosphatemia from poor intake. Replaced. Improved. 6. Acute hypoxic respiratory failure. 7. Volume overload. Improving with diuresis. 8. Hypokalemia from diuresis. Plan: Maintain TPN per surgery. Increase Lasix to 40 mg IV twice daily. Continue to monitor renal function and urine output. Avoid nephrotoxins. Replace potassium.
--- NOTE | 2024-04-19 11:57 | P.PN ---
Subjective Progress Note Date: 04/19/24 This is an 88-year-old female, recent history of fall about 2 weeks ago, sustained bruising to her left ribs. Patient was brought in yesterday to the ER mostly with symptoms of weakness, failure to thrive, poor oral intake, and suspected dehydration. Patient was also complaining of cough and shortness of breath, no fever no chills, no nausea no vomiting. In addition the patient had no bowel movement for the last 4 days. Apparently the patient has been experiencing intermittent episodes of confusion for the last 1 year. Workup in the ER included a CT of the abdomen and pelvis, it showed pneumoperitoneum and free fluid. Patient was felt that she has ruptured viscus, she was seen by surgery and she underwent exploratory laparotomy for her pneumoperitoneum, and she was found to have perforated duodenal ulcer. Patient had modified Lee patch and postoperatively the patient was extubated nonetheless she was admitted to the ICU, and this consult was initiated. I saw the patient in the ICU this morning, she is on 4 L nasal cannula, does not seem to be in any distress. She is already on Zosyn, and I added Diflucan. She is on LR at 125 cc/h. Her WBC count is 28.6, electrolytes are normal hemoglobin is 10.7 BUN is 97 creatinine down to 2.45 from 3.27 yesterday. Progress note dated April 10, 2024. 88-year-old female seen yesterday in consultation. She was admitted on April 08, with confusion and weakness. The patient had a repair of a perforated duodenal ulcer on April 09. Today is postop day #1. She is currently seen today in room 261. She is currently on 6 L of oxygen by nasal cannula. She has an NG tube in place. She is getting lactated Ringer's at 125 cc an hour. For atrial fibrillation with a rapid ventricular response, she was started on Cardizem drip at 5 mg an hour, and amiodarone 0.5 mg/min. No new labs today other than a glucose of 154. The labs from yesterday are reviewed. White count was 28.6. Hemoglobin 10.7, platelet count was normal. BUN and creatinine were 97 and 2.45. Chest x-ray suggested bilateral pleural effusions. Progress note dated April 11, 2024. 88-year-old female seen today in room 261. The patient was admitted on April 08, with confusion and weakness. The patient was discovered to have a perforated duodenal ulcer, and had a surgical repair performed on April 09. Today is postop day #2. The patient is currently without distress. She is on room air. NG tube remains in place. She is getting lactated Ringer's at 75 cc an hour. Because of atrial fibrillation and RVR, she continues on amiodarone 0.5 mg/min, and Cardizem at 5 mg an hour. Lab data includes a white count 34.6, hemoglobin 9.1, hematocrit 36.6, and a platelet count 442,000. Sodium 143, potassium 4.1, chlorides 113, CO2 23, BUN 71, creatinine 1.64. Glucose is 134. Albumin is 2.3. Blood cultures are currently negative. No chest x-ray today has been ordered. Progress note dated April 12, 2024. This is an 88-year-old female who is seen in room 261. The patient was admitted back on April 08, with confusion and weakness. She was discovered to have a perforated duodenal ulcer, and had surgical repair performed on April 09. Today is postoperative day #3. The patient is going to have a upper GI study today. She is getting lactated Ringer's at 75 cc an hour, 3 L of oxygen by nasal cannula, Cardizem at 5 mg an hour, and amiodarone at 0.5 mg/min. White count was 37.4, hemoglobin 11.6, hematocrit 38.5, and platelet count was normal. Sodium 145, potassium 3.2, chloride 115, CO2 24, BUN 52, creatinine 1.26. Glucose 123. Calcium 8.2. BUN 2.2. Blood cultures are currently negative. The patient's chest x-ray is stable, with some basilar atelectasis on the right. Upper GI study showed a leak, at the site of patch placement, in the duodenal bulb. Progress note dated April 13, 2024. 88-year-old female seen today in room 261. The patient is postop day #1, status post Billroth II gastrectomy, and Myles-en-Y reconstruction. The patient is currently on the ventilator. Ventilator settings include volume assist-control, rate 16, tidal volume 350, FiO2 40%, PEEP of 5. Blood gases show pO2 128, pCO2 34, pH is 7.43. The blood gases were done on 50% FiO2. The patient is on lactated Ringer's at 75 cc an hour, amiodarone 0.5 mg/min, Cardizem at 5 mg/h, and propofol, is restarted at a low rate. Current labs include a white count 34.8, hemoglobin 9.5, hematocrit 32.2, and a platelet count of 325,000. Sodium 141, potassium 4, chloride 114, CO2 21, BUN 48, creatinine 1.51. Glucose is 133. Calcium is 7. Blood cultures are negative. Chest x-ray shows in addition to endotracheal tube, and central venous line, blunting of the costophrenic angles. Progress note dated April 14, 2024. 88-year-old female seen today in room 261. She is postop day #2, status post Billroth II gastrectomy and Myles-en-Y reconstruction. The patient is on the ventilator. She was maintained on the ventilator overnight. Currently, the patient is on volume assist-control, rate 16, tidal volume 350, FiO2 30%, PEEP of 5. Blood gases show pO2 of 148, pCO2 33, pH is 7.42. Blood gases were done on 40%. The patient continues on amiodarone at 0.5 mg/min, lactated Ringer's at 75 cc an hour, propofol at 35 mcg/kg/min, and TPN at 30 cc an hour, to be increased to 55 cc an hour. Current white count is 25.2, hemoglobin 9.5, hematocrit 35.5, platelet count 362,000. Sodium 142, potassium 3.3, chlorides 112, CO2 25, BUN 50, creatinine 1.83. Albumin level was 1.9. Chest x-ray is largely unchanged. Progress note dated April 15, 2024. The patient is seen again in room 261. The patient was successfully extubated yesterday, April 14. She is currently on room air. She is receiving a saline IV at KVO, and TPN at 40 cc an hour. Current labs include a white count 18.1, hemoglobin 8.9, hematocrit 27.4, and a platelet count of 334,000. Sodium 140, potassium 3.9, chlorides 114, CO2 23, BUN 46, and creatinine 1.36. Glucose is 170. Calcium is 7.2. Phosphorus is 1.9. Magnesium is 2.0. Progress note dated April 16, 2024. The patient is seen today in room 261. She is currently on room air. She continues on amiodarone at 0.5 mg/min. She is getting TPN at 40 cc an hour, and saline at KVO. She does continue on Zosyn. All her cultures are thus far negative. She has no specific complaints today. According to the nurse, she is a bit anxious. Current labs include a sodium 139, potassium 3.9, chlorides 114, CO2 23, BUN 35, and creatinine 1.15. Glucose is 178. Calcium 7.5, phosphorus 2.3, and magnesium is normal. Culture data is negative. Venous Doppler yesterday, shows a superficial venous thrombosis involving the cephalic vein, of the left upper extremity. On today's evaluation of 04/17/2024, the patient is being seen for a follow-up. The patient is recovering from her abdominal surgery. The patient undergone exploratory laparotomy and repair of a perforated duodenal ulcer and she is postop day #8 subsequent the patient required a bit to gastrectomy and the patient is this morning, the patient has awake and alert and she is currently on med oxygen. She is in normal sinus rhythm. She is on TPN which is running at a rate of 40 cc an hour. She remains on IV Zosyn. She is using the incentive spirometer. The patient has 2 SHRUTHI drains. The medial drain has drained approximately 180 cc of serous material and the right lower abdominal drain has put out approximately 10 cc. She has had paroxysmal atrial fibrillation. She remains on amiodarone running at 0.5 mg/min. The white cell count is at 17 with a hemoglobin 9.1 and a platelet count of 431. BUN is 28 with a creatinine of 1. Electrolytes are normal limits. LFTs are normal. Blood sugar is at 183. The patient remains on empiric antibiotic coverage with IV Zosyn. She is being given oral diet today. Should be able also to take her oral medication. Surgical abdominal wound scar is dry clean and intact. He is alert and awake and communicating. 04/18/2024, the patient is on BiPAP. The patient decompensated overnight and became hypoxic. Chest x-ray was done and the patient was found to have large bilateral pleural effusion the patient was given Lasix. Noted the patient was on room air oxygen prior to her being transferred to the medical floor. At that point, the patient was placed on a BiPAP. She was started on the Lasix. This morning, she remains on BiPAP at a pressure of over 5 cm of water and FiO2 was brought up to 70%. No chest pain. She is awake and alert and she is producing adequate amount of urine output. The white cell count is currently up to On her blood work 38.9 with a hemoglobin of 9 and a platelet count of 443. BUN is 32 with a creatinine of 1.2 and sodium levels of 136. I repeated her blood work again and her white cell count is up to 40 with a hemoglobin of 8.8. The patient got transferred to the intensive care unit. Immediately, I performed an ultrasound of the chest that showed bilateral pleural effusion and thoracentesis of the right lung was done, pending follow-up chest x-ray and a total of 600 cc of pleural fluid aspirated from the right lung. Hemodynamically stable. No hypotension. Remains on TPN. Remains on IV Zosyn. Remains on Lasix 20 mg IV every 12 hours. Awake and alert and communicating. On today's evaluation of 04/19/2024, the patient seems to be more comfortable comp ared to yesterday. The patient is currently on 2 L of oxygen by nasal cannula. The patient was at the pulmonary edema and developed bilateral pleural effusions. The patient had a thoracentesis yesterday without any complication. A total of 650 cc of pleural fluid was aspirated from the right lung. A repeat chest x-ray from today showing improvement in the volume status. There is still increased interstitial markings bilaterally and small bilateral pleural effusions in the lung bases bilaterally. The patient remains on IV Lasix. The patient is producing adequate amount of urine output. Nevertheless, the fluid balance over the past 24 hours has been +500 cc. The patient remains on TPN for nutritional support. The patient is receiving TPN at a rate of 60 cc an hour. The patient is also on a combination of Zosyn and Eraxis, and vancomycin.. Oxygenation is improved and the patient is currently off the BiPAP and the patient currently is on 3 L of oxygen by nasal cannula. BUN is 40 with a creatinine of 1.2. Sodium level is 137, white cell count is improved is currently down to 21 with a hemoglobin of 7.5 and a platelet count of 393. No other significant events otherwise and the patient's condition is slightly more stable compared to yesterday. She is awake and alert and communicating. Objective - Vital Signs Vital signs: Vital Signs Temp 98.4 F 04/19/24 08:00 Pulse 77 04/19/24 10:00 Resp 26 H 04/19/24 10:00 BP 126/57 04/19/24 10:00 Pulse Ox 90 L 04/19/24 10:00 FiO2 70 04/18/24 14:00 Intake & Output 04/18/24 04/19/24 04/19/24 18:59 06:59 18:59 Intake Total 1869.5 795 480 Output Total 735 1345 350 Balance 1134.5 -550 130 Weight 46.5 kg 62.2 kg Intake: IV 500 735 480 0.9 NS 110 40 Anidulafungin 200 mg In 200 200 Sodium Chloride 0.9% 200 ml @ 84 mls/hr IVPB ONCE ONE Rx#:[id number] Mvi, Adult No.4 with Vit 405 K 10 ml Trace (Conc-1Ml/ Dose) 1 ml Sodium Acetate 30 meq Potassium Chloride 40 meq Calcium Gluconate 1 gm Magnesium Sulfate gm 1 gm Potassium Phosphate 12 mmol In Amino Acid 5%-D15w 1,000 ml @ 45 mls/hr IV . [id number] [facility] Rx#:[id number] Piperacillin-Tazobactam 3 100 100 .375 gm In Sodium Chloride 0.9% 100 ml @ 25 mls/hr IVPB Q8H [facility] Rx#: [id number] Sodium Acetate 30 meq 120 240 Potassium Chloride 40 meq Calcium Gluconate 1 gm Magnesium Sulfate gm 1 gm In Amino Acid 5%-D15w 1, 000 ml @ 60 mls/hr IV .BY DURATION [facility] Rx#: [id number] Vancomycin 200 Intake, IV Titration 1369.5 60 Amount Mvi, Adult No.4 with Vit 360 60 K 10 ml Trace (Conc-1Ml/ Dose) 1 ml Sodium Acetate 30 meq Potassium Chloride 40 meq Calcium Gluconate 1 gm Magnesium Sulfate gm 1 gm In Amino Acid 5%-D15w 1,000 ml @ 60 mls/hr IV .BY DURATION [facility] Rx#:[id number] Mvi, Adult No.4 with Vit 1009.5 K 10 ml Trace (Conc-1Ml/ Dose) 1 ml Sodium Acetate 30 meq Potassium Chloride 40 meq Calcium Gluconate 1 gm Magnesium Sulfate gm 1 gm Potassium Phosphate 12 mmol In Amino Acid 5%-D15w 1,000 ml @ 45 mls/hr IV . [id number] [facility] Rx#:[id number] Output: Drainage 60 70 Lower Right Abdomen 0 10 Medial Abdomen 60 60 Urine 675 1275 350 Other: Voiding Method Indwelling Catheter Indwelling Catheter # Bowel Movements 1 ABP, PAP, CO, CI - Last Documented Arterial Blood Pressure 90/59 - Exam No acute distress, awake and alert, no significant respiratory distress and the patient is currently on 3 L of oxygen by nasal cannula. HEENT examination is grossly unremarkable. Neck supple. Full range of motion. No adenopathy thyromegaly or neck vein distention. Cardiovascular examination reveals an irregular rhythm and rate. S1-S2 normal. No S3 or S4. No discernible murmur noted. Lungs reveal rhonchi. No wheezes or crackles. Breath sounds are quite diminished in lung bases and there is also dullness to question. The patient has thoracic kyphosis. Abdomen soft, without bowel sounds. Abdominal incision is dressed. The patient has SHRUTHI drains in place, output is minimal at this point in time. No significant abdominal distention. Positive bowel sounds. SHRUTHI drains are in place and serous output is noted. Extremities are intact. No cyanosis clubbing or edema. Skin is without rash or lesion. Neurologic examination is brief but nonfocal. - Labs CBC & Chem 7: 04/19/24 06:12 04/19/24 06:12 Labs: Abnormal Lab Results - Last 24 Hours (Table) 04/18/24 04/18/24 04/18/24 Range/Units 11:34 11:34 11:40 WBC 40.8 H (3.8-10.6) k/uL RBC 3.11 L (3.80-5.40) m/uL Hgb 8.8 L (11.4-16.0) gm/dL Hct 29.4 L (34.0-46.0) % MCHC 30.0 L (31.0-37.0) g/dL Plt Count 537 H (150-450) k/uL Neutrophils # 38.4 H (1.3-7.7) k/uL Chloride 108 H (98-107) mmol/L BUN 34 H (7-17) mg/dL Creatinine 1.22 H (0.52-1.04) mg/dL Glucose 153 H (74-99) mg/dL POC Glucose (mg/dL) 140 H (70-110) mg/dL Calcium 7.8 L (8.4-10.2) mg/dL AST 43 H (14-36) U/L ALT 48 H (4-34) U/L Total Protein 4.6 L (6.3-8.2) g/dL Albumin 2.3 L (3.5-5.0) g/dL Fluid Appearance (Clear) 04/18/24 04/18/24 04/18/24 Range/Units 12:51 14:41 17:33 WBC (3.8-10.6) k/uL RBC (3.80-5.40) m/uL Hgb (11.4-16.0) gm/dL Hct (34.0-46.0) % MCHC (31.0-37.0) g/dL Plt Count (150-450) k/uL Neutrophils # (1.3-7.7) k/uL Chloride (98-107) mmol/L BUN (7-17) mg/dL Creatinine (0.52-1.04) mg/dL Glucose (74-99) mg/dL POC Glucose (mg/dL) 162 H 169 H (70-110) mg/dL Calcium (8.4-10.2) mg/dL AST (14-36) U/L ALT (4-34) U/L Total Protein (6.3-8.2) g/dL Albumin (3.5-5.0) g/dL Fluid Appearance Slightly Hazy A (Clear) 04/18/24 04/19/24 04/19/24 Range/Units 23:11 06:12 06:12 WBC 21.5 H (3.8-10.6) k/uL RBC 2.55 L (3.80-5.40) m/uL Hgb 7.5 L (11.4-16.0) gm/dL Hct 23.4 L (34.0-46.0) % MCHC (31.0-37.0) g/dL Plt Count (150-450) k/uL Neutrophils # (1.3-7.7) k/uL Chloride 109 H (98-107) mmol/L BUN 40 H (7-17) mg/dL Creatinine 1.29 H (0.52-1.04) mg/dL Glucose 170 H (74-99) mg/dL POC Glucose (mg/dL) 216 H (70-110) mg/dL Calcium 7.8 L (8.4-10.2) mg/dL AST (14-36) U/L ALT (4-34) U/L Total Protein 4.2 L (6.3-8.2) g/dL Albumin 2.0 L (3.5-5.0) g/dL Fluid Appearance (Clear) 04/19/24 Range/Units 06:27 WBC (3.8-10.6) k/uL RBC (3.80-5.40) m/uL Hgb (11.4-16.0) gm/dL Hct (34.0-46.0) % MCHC (31.0-37.0) g/dL Plt Count (150-450) k/uL Neutrophils # (1.3-7.7) k/uL Chloride (98-107) mmol/L BUN (7-17) mg/dL Creatinine (0.52-1.04) mg/dL Glucose (74-99) mg/dL POC Glucose (mg/dL) 200 H (70-110) mg/dL Calcium (8.4-10.2) mg/dL AST (14-36) U/L ALT (4-34) U/L Total Protein (6.3-8.2) g/dL Albumin (3.5-5.0) g/dL Fluid Appearance (Clear) Microbiology - Last 24 Hours (Table) 04/18/24 14:41 Gram Stain - Preliminary Pleural Fluid Body Fluid Culture - Preliminary Assessment and Plan Plan: Acute hypoxic respiratory failure and the patient is currently on 3 L of O2 nasal cannula. The patient is being diuresed. Patient underwent thoracentesis of the right lung and a total of 600 cc of transudative pleural fluid was aspirated from the right lung without any major complications. Follow-up chest x-ray from today still showing some CHF findings. CHF with bilateral pleural effusions and pulm vascular congestion/edema, currently on IV Lasix. Acute leukocytosis, rule out septic event. Possibility of anastomotic leak cannot be completely excluded. Currently on IV Zosyn, vancomycin and Eraxis. The white cell count is improving. Postoperative day # 10, S/P exploratory laparotomy, repair of perforated duodenal ulcer, and application of a modified Lee patch. Upper GI series, showing leak, at the site of the modified Lee patch. Postoperative day # 6, status post Billroth II gastrectomy, and Myles-en-Y reconstruction. The patient remains on TPN for nutritional support. Acute hypoxic respiratory failure, recovered and the patient was extubated on 04/14/2024. The patient was room air oxygen and the patient got transferred to the medical floor to be readmitted back to the ICU the patient was weaned off the BiPAP and the patient is currently on liters of O2 nasal cannula Acute abdominal sepsis, secondary to above and the patient is currently on IV Zosyn, vancomycin and Eraxis Acute atrial fibrillation, with rapid ventricular response. The cardiac rhythm is back to sinus and the patient oral amiodarone History of splenic hematoma, without rupture. The patient is currently on no anticoagulants Acute dehydration with acute kidney injury. Recovered and the patient renal function is normal Nonanion gap metabolic acidosis, recovered Hypovolemic hyponatremia, recovered. General medical debility. Plan: Keep the patient on O2 at 3 L/min nasal cannula Increase Lasix to 40 mg IV every 12 hours Thoracentesis of the right lung was done without any complications Monitor the output from the SHRUTHI drain and general surgery is on the case Surgical scar is dry clean and intact Send this is a blood cultures x 2 and continue the patient on vancomycin Zosyn and Eraxis Adequate pain control Cardiac rhythm is sinus Will continue to follow. Condition is critical and the patient will be kept in the intensive care unit. Will continue to follow. This evaluation was done more than 30 minutes.
[2024-04-19] MEDS: VANCOMYCIN 750 MG in SODIUM CHLORIDE 0.9% 250 ML IVPB ONE (11:58)
[2024-04-19] MEDS: POTASSIUM CHLORIDE ER 20 MEQ TAB.ER PO STA (12:24)
--- NOTE | 2024-04-19 14:54 | P.PN ---
Subjective Progress Note Date: 04/19/24 CHIEF COMPLAINT: Perforated duodenal ulcer HISTORY OF PRESENT ILLNESS: Patient is status post exploratory laparotomy with modified Lee patch for perforated duodenal ulcer on 04/09/24. Upper GI had reported a leak and patient taken back to the OR yesterday. She is postop day # 7 status post reexploration with Billroth II gastrectomy with Myles-en-Y reconstruction. Patient did go back to the ICU yesterday due shortness of breath and evidence of pleural effusion. She is status post thoracentesis. Patient's breathing is improved. Patient reports her abdominal pain is controlled. Denies any nausea or vomiting. White count improved from 40-21 afebrile PHYSICAL EXAM: VITAL SIGNS: Reviewed. GENERAL: Intubated ABDOMEN: Soft. Mildly distended. Incisional dressing clean dry and intact. 2 SHRUTHI drains serous output ASSESSMENT: 1. Perforated duodenal ulcer 2. Splenic subcapsular hematoma without rupture 3. Afib 4. Severe protein calorie malnutrition 5. Right pleural effusion PLAN: -Continue clear liquid diet. No carbonated beverages -Continue TPN for nutrition support -Continue IV antibiotics -Continue IV Protonix -Continue supportive care -DVT prophylaxis subcu heparin Physician Crystal Gazer note has been reviewed by physician. Signing provider agrees with the documented findings, assessment, and plan of care. Objective - Vital Signs Vital signs: Vital Signs Temp 98.4 F 04/19/24 08:00 Pulse 65 04/19/24 13:00 Resp 17 04/19/24 13:00 BP 132/60 04/19/24 13:00 Pulse Ox 96 04/19/24 13:00 FiO2 70 04/18/24 14:00 Intake & Output 04/18/24 04/19/24 04/19/24 18:59 06:59 18:59 Intake Total 1869.5 795 945 Output Total 735 1345 990 Balance 1134.5 -550 -45 Weight 46.5 kg 62.2 kg Intake: IV 500 735 845 0.9 NS 110 60 Anidulafungin 200 mg In 200 200 Sodium Chloride 0.9% 200 ml @ 84 mls/hr IVPB ONCE ONE Rx#:[id number] Mvi, Adult No.4 with Vit 120 K 10 ml Trace (Conc-1Ml/ Dose) 1 ml Sodium Acetate 30 meq Potassium Chloride 40 meq Calcium Gluconate 1 gm Magnesium Sulfate gm 1 gm In Amino Acid 5%-D15w 1,000 ml @ 60 mls/hr IV .BY DURATION [facility] Rx#:[id number] Mvi, Adult No.4 with Vit 405 K 10 ml Trace (Conc-1Ml/ Dose) 1 ml Sodium Acetate 30 meq Potassium Chloride 40 meq Calcium Gluconate 1 gm Magnesium Sulfate gm 1 gm Potassium Phosphate 12 mmol In Amino Acid 5%-D15w 1,000 ml @ 45 mls/hr IV . [id number] [facility] Rx#:[id number] Piperacillin-Tazobactam 3 100 100 100 .375 gm In Sodium Chloride 0.9% 100 ml @ 25 mls/hr IVPB Q8H [facility] Rx#: [id number] Sodium Acetate 30 meq 120 240 Potassium Chloride 40 meq Calcium Gluconate 1 gm Magnesium Sulfate gm 1 gm In Amino Acid 5%-D15w 1, 000 ml @ 60 mls/hr IV .BY DURATION [facility] Rx#: [id number] Vancomycin 200 Vancomycin 750 mg In 125 Sodium Chloride 0.9% 250 ml @ 125 mls/hr IVPB ONCE ONE Rx#:[id number] Intake, IV Titration 1369.5 60 Amount Mvi, Adult No.4 with Vit 360 60 K 10 ml Trace (Conc-1Ml/ Dose) 1 ml Sodium Acetate 30 meq Potassium Chloride 40 meq Calcium Gluconate 1 gm Magnesium Sulfate gm 1 gm In Amino Acid 5%-D15w 1,000 ml @ 60 mls/hr IV .BY DURATION [facility] Rx#:[id number] Mvi, Adult No.4 with Vit 1009.5 K 10 ml Trace (Conc-1Ml/ Dose) 1 ml Sodium Acetate 30 meq Potassium Chloride 40 meq Calcium Gluconate 1 gm Magnesium Sulfate gm 1 gm Potassium Phosphate 12 mmol In Amino Acid 5%-D15w 1,000 ml @ 45 mls/hr IV . [id number] [facility] Rx#:[id number] Oral 100 Output: Drainage 60 70 40 Lower Right Abdomen 0 10 Medial Abdomen 60 60 40 Urine 675 1275 950 Other: Voiding Method Indwelling Catheter Indwelling Catheter Indwelling Catheter # Bowel Movements 1 ABP, PAP, CO, CI - Last Documented Arterial Blood Pressure 90/59 - Labs CBC & Chem 7: 04/19/24 06:12 04/19/24 06:12 Labs: Abnormal Lab Results - Last 24 Hours (Table) 04/18/24 04/18/24 04/18/24 Range/Units 11:34 12:51 14:41 WBC (3.8-10.6) k/uL RBC (3.80-5.40) m/uL Hgb (11.4-16.0) gm/dL Hct (34.0-46.0) % Chloride (98-107) mmol/L BUN (7-17) mg/dL Creatinine (0.52-1.04) mg/dL Glucose (74-99) mg/dL POC Glucose (mg/dL) 162 H (70-110) mg/dL Calcium (8.4-10.2) mg/dL AST 43 H (14-36) U/L Total Protein (6.3-8.2) g/dL Albumin (3.5-5.0) g/dL Fluid Appearance Slightly Hazy A (Clear) 04/18/24 04/18/24 04/19/24 Range/Units 17:33 23:11 06:12 WBC (3.8-10.6) k/uL RBC (3.80-5.40) m/uL Hgb (11.4-16.0) gm/dL Hct (34.0-46.0) % Chloride 109 H (98-107) mmol/L BUN 40 H (7-17) mg/dL Creatinine 1.29 H (0.52-1.04) mg/dL Glucose 170 H (74-99) mg/dL POC Glucose (mg/dL) 169 H 216 H (70-110) mg/dL Calcium 7.8 L (8.4-10.2) mg/dL AST (14-36) U/L Total Protein 4.2 L (6.3-8.2) g/dL Albumin 2.0 L (3.5-5.0) g/dL Fluid Appearance (Clear) 04/19/24 04/19/24 Range/Units 06:12 06:27 WBC 21.5 H (3.8-10.6) k/uL RBC 2.55 L (3.80-5.40) m/uL Hgb 7.5 L (11.4-16.0) gm/dL Hct 23.4 L (34.0-46.0) % Chloride (98-107) mmol/L BUN (7-17) mg/dL Creatinine (0.52-1.04) mg/dL Glucose (74-99) mg/dL POC Glucose (mg/dL) 200 H (70-110) mg/dL Calcium (8.4-10.2) mg/dL AST (14-36) U/L Total Protein (6.3-8.2) g/dL Albumin (3.5-5.0) g/dL Fluid Appearance (Clear) Microbiology - Last 24 Hours (Table) 04/18/24 14:41 Gram Stain - Preliminary Pleural Fluid Body Fluid Culture - Preliminary
[2024-04-19] MEDS: POTASSIUM CHLORIDE 10 MEQ in WATER FOR INJECTION 1 100ML.BAG IVPB SCH (15:33)
--- NOTE | 2024-04-19 17:27 | P.PN ---
Subjective Progress Note Date: 04/19/24 This is an 88-year-old female patient who is somewhat poor historian who we are asked to see in the intensive care unit for further evaluation of atrial fibrillation with rapid ventricular response. The patient lives by herself. She has some underlying dementia. She was brought by her neighbor because she fell 2 days ago and has not been feeling well. She has been experiencing intermittent episodes of confusion and she was also having failure to thrive. Beside that she was feeling nauseated and experiencing intermittent episodes of abdominal discomfort. She underwent further investigation in the emergency department including an EKG showing sinus mechanism with nonspecific ST and T wave abnormalities and also she underwent a CT scan of the abdomen and that revealed perforated bowel. The patient underwent surgery yesterday and this is her postoperation day #1. No history of CAD or CHF or cardiac arrhythmia including atrial fibrillation the patient never seen by a oliver filter operator in the p ast according to her. The patient is extremely poor historian and she has difficulty hearing. Subsequently the patient was started on Cardizem IV and amiodarone IV and converted to normal sinus mechanism and has been maintaining normal sinus mechanism with heart rate in the 50s as well as the 60s. Currently she is not on any IV heparin or anticoagulation. We are going to find out from the surgical team when it is safe to start the patient on IV heparin at this point. Apparently she is n.p.o. and cannot take any oral medication and for that reason she is on the IV AV georgie harvinder agents. An echocardiogram was ordered and still pending. Further investigation also was performed including creatinine came to be at 2.5 but the patient has not been able to urinate and there is a component of obstructive uropathy and currently urology service is on the case to place a Walters catheter. Beside that her hemoglobin has been around 10.5. The examination is remarkable for regular rhythm with distant heart sounds and systolic murmur at the right upper sternal border with diminished breathing sounds bilaterally and no edema was noted in the lower extremities 04/12 patient seen and examined. Patient's creatinine has improved to 1.2. She denies any chest pain or pressure. Denies any significant shortness breath. Has some vague abdominal pain. Concern of continued leak from upper GI study. Echocardiogram performed which shows preserved EF without significant valvular disease. Has been on IV amiodarone as well as IV Cardizem drip secondary to patient being nothing by mouth. 04/13 Seen and examined. Remains intubated and sedated. Recievieng TPN, NPO on amio and Cardizem drip. Hgb dropped however may be dilutional. Did have decreased urine outpt and therefore was given dose of Lasix. 04/14 Heart appearing however denying any chest pain or pressure or significant abdom inal pain. Still nothing by mouth and therefore receiving IV amiodarone. Remains in normal sinus rhythm. CVP was checked yesterday with low reading in the 2-3 range. Still receiving TPN 04/15 Patient seen and examined. Patient remains in the intensive care unit. Patient remains NPO. Blood pressure 145/63, heart rate in the 70s, pulse ox 95% on room air. Patient has been afebrile. Telemetry is sinus rhythm. Patient remains on IV amiodarone. Patient maintained on TPN as well. Repeat blood work reveals WBC 18, hemoglobin 8.9. Sodium 140, potassium 3.9, BUN 46 creatinine 1.36. Patient complains of left arm swelling which is being elevated. 04/16 Patient is seen and examined. Patient remains in the intensive care unit. Blood pressure 152/72, heart rate 87, pulse ox 95% on room air. Telemetry is sinus rhythm. Repeat blood work reveals sodium 139, potassium 3.9, BUN 35 creatinine 1.15. Venous Doppler of the left upper extremity showed no evidence of DVT. There is SVT in the cephalic vein from the upper forearm to the mid humerus level. Extensive subcutaneous edema. Patient denies abdominal pain. She is NPO and denies appetite. She states she had 4 BMs last night. 04/19/2024 BP 132/60, heart rate 65, Hemoglobin 7.5, WBC 21, creatinine 1.29 Patient is maintained on TPN and IV antibiotics. She is using on and off BiPAP. Slow clinical improvement Assessment Status post abdominal surgery, perforated bowel with continued bowel leak Parosyxmal atrial fibrillation new onset. Currently the patient is in sinus mechanism. Obstructive uropathy JESÚS, improving Multiple comorbid conditions Anemia with drop in hgb Superficial thrombus cephalic vein, left upper extremity Plan Continue p.o. amiodarone. Not a good anticoagulation candidate currently with concern of continued leak and decrease in Hgb. Echo showing preserved EF. Continue her current supportive care Further recommendations to follow. Objective - Vital Signs Vital signs: Vital Signs Temp 98.4 F 04/19/24 08:00 Pulse 73 04/19/24 15:45 Resp 17 04/19/24 13:00 BP 132/60 04/19/24 13:00 Pulse Ox 96 04/19/24 13:00 FiO2 70 04/18/24 14:00 Intake & Output 04/18/24 04/19/24 04/19/24 18:59 06:59 18:59 Intake Total 1869.5 795 945 Output Total 735 1345 990 Balance 1134.5 -550 -45 Weight 46.5 kg 62.2 kg Intake: IV 500 735 845 0.9 NS 110 60 Anidulafungin 200 mg In 200 200 Sodium Chloride 0.9% 200 ml @ 84 mls/hr IVPB ONCE ONE Rx#:[id number] Mvi, Adult No.4 with Vit 120 K 10 ml Trace (Conc-1Ml/ Dose) 1 ml Sodium Acetate 30 meq Potassium Chloride 40 meq Calcium Gluconate 1 gm Magnesium Sulfate gm 1 gm In Amino Acid 5%-D15w 1,000 ml @ 60 mls/hr IV .BY DURATION [facility] Rx#:[id number] Mvi, Adult No.4 with Vit 405 K 10 ml Trace (Conc-1Ml/ Dose) 1 ml Sodium Acetate 30 meq Potassium Chloride 40 meq Calcium Gluconate 1 gm Magnesium Sulfate gm 1 gm Potassium Phosphate 12 mmol In Amino Acid 5%-D15w 1,000 ml @ 45 mls/hr IV . [id number] [facility] Rx#:[id number] Piperacillin-Tazobactam 3 100 100 100 .375 gm In Sodium Chloride 0.9% 100 ml @ 25 mls/hr IVPB Q8H [facility] Rx#: [id number] Sodium Acetate 30 meq 120 240 Potassium Chloride 40 meq Calcium Gluconate 1 gm Magnesium Sulfate gm 1 gm In Amino Acid 5%-D15w 1, 000 ml @ 60 mls/hr IV .BY DURATION [facility] Rx#: [id number] Vancomycin 200 Vancomycin 750 mg In 125 Sodium Chloride 0.9% 250 ml @ 125 mls/hr IVPB ONCE ONE Rx#:[id number] Intake, IV Titration 1369.5 60 Amount Mvi, Adult No.4 with Vit 360 60 K 10 ml Trace (Conc-1Ml/ Dose) 1 ml Sodium Acetate 30 meq Potassium Chloride 40 meq Calcium Gluconate 1 gm Magnesium Sulfate gm 1 gm In Amino Acid 5%-D15w 1,000 ml @ 60 mls/hr IV .BY DURATION [facility] Rx#:[id number] Mvi, Adult No.4 with Vit 1009.5 K 10 ml Trace (Conc-1Ml/ Dose) 1 ml Sodium Acetate 30 meq Potassium Chloride 40 meq Calcium Gluconate 1 gm Magnesium Sulfate gm 1 gm Potassium Phosphate 12 mmol In Amino Acid 5%-D15w 1,000 ml @ 45 mls/hr IV . [id number] [facility] Rx#:[id number] Oral 100 Output: Drainage 60 70 40 Lower Right Abdomen 0 10 Medial Abdomen 60 60 40 Urine 675 1275 950 Other: Voiding Method Indwelling Catheter Indwelling Catheter Indwelling Catheter # Bowel Movements 1 ABP, PAP, CO, CI - Last Documented Arterial Blood Pressure 90/59 - Labs CBC & Chem 7: 04/19/24 06:12 04/19/24 06:12 Labs: Abnormal Lab Results - Last 24 Hours (Table) 04/18/24 04/18/24 04/18/24 Range/Units 14:41 17:33 23:11 WBC (3.8-10.6) k/uL RBC (3.80-5.40) m/uL Hgb (11.4-16.0) gm/dL Hct (34.0-46.0) % Chloride (98-107) mmol/L BUN (7-17) mg/dL Creatinine (0.52-1.04) mg/dL Glucose (74-99) mg/dL POC Glucose (mg/dL) 169 H 216 H (70-110) mg/dL Calcium (8.4-10.2) mg/dL Total Protein (6.3-8.2) g/dL Albumin (3.5-5.0) g/dL Fluid Appearance Slightly Hazy A (Clear) 04/19/24 04/19/24 04/19/24 Range/Units 06:12 06:12 06:27 WBC 21.5 H (3.8-10.6) k/uL RBC 2.55 L (3.80-5.40) m/uL Hgb 7.5 L (11.4-16.0) gm/dL Hct 23.4 L (34.0-46.0) % Chloride 109 H (98-107) mmol/L BUN 40 H (7-17) mg/dL Creatinine 1.29 H (0.52-1.04) mg/dL Glucose 170 H (74-99) mg/dL POC Glucose (mg/dL) 200 H (70-110) mg/dL Calcium 7.8 L (8.4-10.2) mg/dL Total Protein 4.2 L (6.3-8.2) g/dL Albumin 2.0 L (3.5-5.0) g/dL Fluid Appearance (Clear) Microbiology - Last 24 Hours (Table) 04/18/24 14:41 Gram Stain - Preliminary Pleural Fluid Body Fluid Culture - Preliminary
[2024-04-19 19:28] LABS: Glucose,Whole Blood 203 mg/dL (70-110)
[2024-04-19] MEDS: FUROSEMIDE 10 MG/ML 2 ML VIAL IV SCH (21:29)
[2024-04-20 00:12] LABS: Glucose,Whole Blood 211 mg/dL (70-110)
[2024-04-20 04:43] LABS: Hypochromasia Slight; MCH 29.2 pg (25.0-35.0); MCHC 31.7 g/dL (31.0-37.0); MCV 92.3 fL (80.0-100.0); Platelet Count 397 k/uL (150-450); RBC 2.27 m/uL (3.80-5.40); RDW 14.8 % (11.5-15.5); WBC 13.9 k/uL (3.8-10.6)
[2024-04-20 04:45] LABS: HGB 6.6 gm/dL (11.4-16.0)
[2024-04-20 05:47] LABS: Glucose,Whole Blood 221 mg/dL (70-110)
[2024-04-20] MEDS: VANCOMYCIN 1,000 MG in SODIUM CHLORIDE 0.9% 250 ML IVPB ONE (06:57)
--- NOTE | 2024-04-20 07:56 | XR ---
EXAMINATION TYPE: XR chest 1V portable DATE OF EXAM: 04/20/2024 6:35 AM CLINICAL INDICATION:Female, 88 years old with history of chf; bilateral pleural effusions; PHH COMPARISON: Chest radiographs from TECHNIQUE: XR chest 1V portable Frontal view of the chest. FINDINGS: Lungs/Pleura: Prominent interstitial lung markings are seen scattered throughout the lungs. No eviden ce of focal consolidation, pneumothorax or pleural effusion. Pulmonary vascularity: Unremarkable. Heart/mediastinum: Cardiomediastinal silhouette is unremarkable. Atherosclerotic calcifications are seen in the aorta. Musculoskeletal: No acute osseous pathology. Other findings: None Lines/Tubes: Right internal jugular central venous catheter with distal tip at the cavoatrial junction. IMPRESSION: Interstitial lung disease changes similar to prior.
[2024-04-20 09:40] LABS: ALT 40 U/L (4-34); AST 48 U/L (14-36); African American GFR (CKD) 46 (>60 ml/min/1.73 sqM); Alkaline Phosphatase 83 U/L (38-126); Anion Gap 5 mmol/L; Blood Urea Nitrogen 48 mg/dL (7-17); Calcium 7.5 mg/dL (8.4-10.2); Carbon Dioxide 25 mmol/L (22-30); Chloride 105 mmol/L (98-107); Globulin 2.1 g/dL; Glucose 185 mg/dL (74-99); Magnesium 1.8 mg/dL (1.6-2.3); Non-African American GFR(CKD) 40 (>60 ml/min/1.73 sqM); Phosphorus 2.3 mg/dL (2.5-4.5); Potassium 3.1 mmol/L (3.5-5.1); Sodium 135 mmol/L (137-145); Total Bilirubin 0.5 mg/dL (0.2-1.3); Total Protein 4.1 g/dL (6.3-8.2)
--- NOTE | 2024-04-20 10:24 | P.PN ---
Subjective HISTORY OF PRESENT ILLNESS: Patient examined this morning the bedside. Patient's family is present. Patient currently denies any chest pain or pressure. She denies any shortness of breath. Patient continues to have TPN infusing. She does report passing flatus this morning. Hemoglobin today 6.6. She is currently receiving a RBC transfusion. Telemetry reveals sinus mechanism. Vital signs are stable. PHYSICAL EXAM: VITAL SIGNS: Reviewed. GENERAL: Well-developed in no acute distress. NECK: Supple. No JVD or thyromegaly LUNGS: Respirations even and unlabored. Lungs essentially clear to auscultation bilaterally. HEART: Regular rate and rhythm. S1 and S2 heard. EXTREMITIES: Normal range of motion. No clubbing or cyanosis. Peripheral pulses intact. No lower extremity edema ASSESSMENT: Perforated duodenal ulcer status post exploratory laparotomy with subsequent upper GI reporting leak requiring reexploration New onset paroxysmal atrial fibrillation, currently maintaining sinus mechanism Obstructive uropathy Acute kidney injury, improving Superficial thrombus cephalic vein, left upper extremity Acute blood loss anemia Right-sided pleural effusion status post thoracentesis Acute heart failure with preserved EF Acute hypoxic respiratory failure History of splenic hematoma without rupture PLAN: Continue IV Lasix for today. Transition to oral Lasix tomorrow No anticoagulation due to acute blood loss anemia. Patient is requiring blood transfusion today Continue additional cardiac medications Patient is stable from a cardiac standpoint with no further inpatient recommendations We will sign off. Please reconsult if needed. Nurse practitioner note has been reviewed by physician. Signing provider agrees with the documented findings, assessment, and plan of care documented by SUPPLY CHAIN DESIGN MANAGER as a scribe. Objective - Vital Signs Vital signs: Vital Signs Temp 98.7 F 04/20/24 09:24 Pulse 69 04/20/24 09:24 Resp 16 04/20/24 09:24 BP 115/61 04/20/24 09:24 Pulse Ox 98 04/20/24 09:27 FiO2 70 04/18/24 14:00 Intake & Output 04/19/24 04/20/24 04/20/24 18:59 06:59 18:59 Intake Total 1655 1047 0 Output Total 1540 2210 Balance 115 -1163 0 Weight 62.5 kg Intake: IV 1555 0.9 NS 110 Anidulafungin 200 mg In 200 Sodium Chloride 0.9% 200 ml @ 84 mls/hr IVPB ONCE ONE Rx#:[id number] Mvi, Adult No.4 with Vit 480 K 10 ml Trace (Conc-1Ml/ Dose) 1 ml Sodium Acetate 30 meq Potassium Chloride 40 meq Calcium Gluconate 1 gm Magnesium Sulfate gm 1 gm In Amino Acid 5%-D15w 1,000 ml @ 60 mls/hr IV .BY DURATION [facility] Rx#:[id number] Piperacillin-Tazobactam 3 200 .375 gm In Sodium Chloride 0.9% 100 ml @ 25 mls/hr IVPB Q8H [facility] Rx#: [id number] Potassium Chloride 10 meq 200 In Water For Injection 1 100ml.bag @ 100 mls/hr IVPB Q1H [facility] Rx#: [id number] Sodium Acetate 30 meq 240 Potassium Chloride 40 meq Calcium Gluconate 1 gm Magnesium Sulfate gm 1 gm In Amino Acid 5%-D15w 1, 000 ml @ 60 mls/hr IV .BY DURATION [facility] Rx#: [id number] Vancomycin 750 mg In 125 Sodium Chloride 0.9% 250 ml @ 125 mls/hr IVPB ONCE ONE Rx#:[id number] Intake, IV Titration 1047 Amount Sodium Acetate 30 meq 1047 Potassium Chloride 40 meq Calcium Gluconate 1 gm Magnesium Sulfate gm 1 gm In Amino Acid 5%-D15w 1, 000 ml @ 60 mls/hr IV .BY DURATION [facility] Rx#: [id number] Oral 100 Blood Product 0 Unit 0 Output: Drainage 40 60 Lower Right Abdomen 0 Medial Abdomen 40 60 Urine 1500 2150 Other: Voiding Method Indwelling Catheter Indwelling Catheter # Bowel Movements 1 ABP, PAP, CO, CI - Last Documented Arterial Blood Pressure 90/59 - Labs CBC & Chem 7: 04/20/24 04:21 04/20/24 04:21 Labs: Abnormal Lab Results - Last 24 Hours (Table) 04/19/24 04/20/24 04/20/24 Range/Units 19:26 00:11 04:21 WBC (3.8-10.6) k/uL RBC (3.80-5.40) m/uL Hgb (11.4-16.0) gm/dL Hct (34.0-46.0) % Sodium 135 L (137-145) mmol/L Potassium 3.1 L (3.5-5.1) mmol/L BUN 48 H (7-17) mg/dL Creatinine 1.21 H (0.52-1.04) mg/dL Glucose 185 H (74-99) mg/dL POC Glucose (mg/dL) 203 H 211 H (70-110) mg/dL Calcium 7.5 L (8.4-10.2) mg/dL Phosphorus 2.3 L (2.5-4.5) mg/dL AST 48 H (14-36) U/L ALT 40 H (4-34) U/L Total Protein 4.1 L (6.3-8.2) g/dL Albumin 2.0 L (3.5-5.0) g/dL Crossmatch 04/20/24 04/20/24 04/20/24 Range/Units 04:21 05:19 05:46 WBC 13.9 H (3.8-10.6) k/uL RBC 2.27 L (3.80-5.40) m/uL Hgb 6.6 L* (11.4-16.0) gm/dL Hct 21.0 L (34.0-46.0) % Sodium (137-145) mmol/L Potassium (3.5-5.1) mmol/L BUN (7-17) mg/dL Creatinine (0.52-1.04) mg/dL Glucose (74-99) mg/dL POC Glucose (mg/dL) 221 H (70-110) mg/dL Calcium (8.4-10.2) mg/dL Phosphorus (2.5-4.5) mg/dL AST (14-36) U/L ALT (4-34) U/L Total Protein (6.3-8.2) g/dL Albumin (3.5-5.0) g/dL Crossmatch See Detail Microbiology - Last 24 Hours (Table) 04/18/24 14:41 Gram Stain - Preliminary Pleural Fluid Body Fluid Culture - Preliminary 04/18/24 14:40 Blood Culture - Preliminary Blood
[2024-04-20] MEDS ORDERED: POTASSIUM CHLORIDE IV SCH (11:00)
[2024-04-20] MEDS ORDERED: CALCIUM GLUCONATE IV SCH (11:00)
[2024-04-20] MEDS ORDERED: SODIUM ACETATE IV SCH (11:00)
[2024-04-20] MEDS ORDERED: [UNRECOGNIZED DRUG - OTHER] IV SCH (11:00)
[2024-04-20 11:50] LABS: Glucose,Whole Blood 193 mg/dL (70-110)
[2024-04-20] MEDS: POTASSIUM CHLORIDE 20 MEQ in WATER FOR INJECTION 1 100ML.BAG IVPB SCH (12:23)
--- NOTE | 2024-04-20 13:49 | P.PN ---
Subjective Progress Note Date: 04/20/24 Patient is seen in follow-up for acute kidney injury. Receiving TPN. Currently on nasal cannula. Feeling better overall. On IV Lasix. Nonoliguric. Patient feeling better over all and wants to eat more. Vital signs are stable. General: No acute distress. HEENT: Head exam is unremarkable. On nasal cannula. LUNGS: No audible rhonchi or wheezes. HEART: Rate and Rhythm are regular. ABDOMEN: Nontender. SHRUTHI drain noted. EXTREMITITES: Trace edema. Objective - Vital Signs Vital signs: Vital Signs Temp 98.7 F 04/20/24 09:24 Pulse 69 04/20/24 09:24 Resp 16 04/20/24 09:24 BP 115/61 04/20/24 09:24 Pulse Ox 98 04/20/24 09:27 FiO2 70 04/18/24 14:00 Intake & Output 04/19/24 04/20/24 04/20/24 18:59 06:59 18:59 Intake Total 1655 1047 0 Output Total 1540 2210 Balance 115 -1163 0 Weight 62.5 kg Intake: IV 1555 0.9 NS 110 Anidulafungin 200 mg In 200 Sodium Chloride 0.9% 200 ml @ 84 mls/hr IVPB ONCE ONE Rx#:[id number] Mvi, Adult No.4 with Vit 480 K 10 ml Trace (Conc-1Ml/ Dose) 1 ml Sodium Acetate 30 meq Potassium Chloride 40 meq Calcium Gluconate 1 gm Magnesium Sulfate gm 1 gm In Amino Acid 5%-D15w 1,000 ml @ 60 mls/hr IV .BY DURATION [facility] Rx#:[id number] Piperacillin-Tazobactam 3 200 .375 gm In Sodium Chloride 0.9% 100 ml @ 25 mls/hr IVPB Q8H [facility] Rx#: [id number] Potassium Chloride 10 meq 200 In Water For Injection 1 100ml.bag @ 100 mls/hr IVPB Q1H [facility] Rx#: [id number] Sodium Acetate 30 meq 240 Potassium Chloride 40 meq Calcium Gluconate 1 gm Magnesium Sulfate gm 1 gm In Amino Acid 5%-D15w 1, 000 ml @ 60 mls/hr IV .BY DURATION [facility] Rx#: [id number] Vancomycin 750 mg In 125 Sodium Chloride 0.9% 250 ml @ 125 mls/hr IVPB ONCE ONE Rx#:[id number] Intake, IV Titration 1047 Amount Sodium Acetate 30 meq 1047 Potassium Chloride 40 meq Calcium Gluconate 1 gm Magnesium Sulfate gm 1 gm In Amino Acid 5%-D15w 1, 000 ml @ 60 mls/hr IV .BY DURATION [facility] Rx#: [id number] Oral 100 Blood Product 0 Unit 0 Output: Drainage 40 60 Lower Right Abdomen 0 Medial Abdomen 40 60 Urine 1500 2150 Other: Voiding Method Indwelling Catheter Indwelling Catheter # Bowel Movements 1 ABP, PAP, CO, CI - Last Documented Arterial Blood Pressure 90/59 - Labs CBC & Chem 7: 04/20/24 04:21 04/20/24 04:21 Labs: Abnormal Lab Results - Last 24 Hours (Table) 04/19/24 04/20/24 04/20/24 Range/Units 19:26 00:11 04:21 WBC (3.8-10.6) k/uL RBC (3.80-5.40) m/uL Hgb (11.4-16.0) gm/dL Hct (34.0-46.0) % Sodium 135 L (137-145) mmol/L Potassium 3.1 L (3.5-5.1) mmol/L BUN 48 H (7-17) mg/dL Creatinine 1.21 H (0.52-1.04) mg/dL Glucose 185 H (74-99) mg/dL POC Glucose (mg/dL) 203 H 211 H (70-110) mg/dL Calcium 7.5 L (8.4-10.2) mg/dL Phosphorus 2.3 L (2.5-4.5) mg/dL AST 48 H (14-36) U/L ALT 40 H (4-34) U/L Total Protein 4.1 L (6.3-8.2) g/dL Albumin 2.0 L (3.5-5.0) g/dL Stool Occult Blood (Negative) Crossmatch 04/20/24 04/20/24 04/20/24 Range/Units 04:21 05:19 05:46 WBC 13.9 H (3.8-10.6) k/uL RBC 2.27 L (3.80-5.40) m/uL Hgb 6.6 L* (11.4-16.0) gm/dL Hct 21.0 L (34.0-46.0) % Sodium (137-145) mmol/L Potassium (3.5-5.1) mmol/L BUN (7-17) mg/dL Creatinine (0.52-1.04) mg/dL Glucose (74-99) mg/dL POC Glucose (mg/dL) 221 H (70-110) mg/dL Calcium (8.4-10.2) mg/dL Phosphorus (2.5-4.5) mg/dL AST (14-36) U/L ALT (4-34) U/L Total Protein (6.3-8.2) g/dL Albumin (3.5-5.0) g/dL Stool Occult Blood (Negative) Crossmatch See Detail 04/20/24 Range/Units 10:01 WBC (3.8-10.6) k/uL RBC (3.80-5.40) m/uL Hgb (11.4-16.0) gm/dL Hct (34.0-46.0) % Sodium (137-145) mmol/L Potassium (3.5-5.1) mmol/L BUN (7-17) mg/dL Creatinine (0.52-1.04) mg/dL Glucose (74-99) mg/dL POC Glucose (mg/dL) (70-110) mg/dL Calcium (8.4-10.2) mg/dL Phosphorus (2.5-4.5) mg/dL AST (14-36) U/L ALT (4-34) U/L Total Protein (6.3-8.2) g/dL Albumin (3.5-5.0) g/dL Stool Occult Blood Positive H (Negative) Crossmatch Microbiology - Last 24 Hours (Table) 04/18/24 14:41 Gram Stain - Preliminary Pleural Fluid Body Fluid Culture - Preliminary 04/18/24 14:40 Blood Culture - Preliminary Blood Assessment and Plan Assessment: 1. Acute kidney injury secondary to hemodynamic ATN. Renal function worse from diuresis. Creatinine stable at 1.21 today. Unknown baseline renal function. UA fairly benign. No hydronephrosis noted on kidney ultrasound. 2. A-fib with RVR status post amiodarone drip. Now on oral amiodarone and Lopressor. 3. Perforated duodenal ulcer status post exploratory laparotomy with modified Lee patch April 09, 2024 with reexploration on April 12, 2024. Surgery following. 4. Metabolic acidosis secondary to acute kidney injury. Stable. 5. Hypophosphatemia from poor intake. Replaced. Improved. 6. Acute hypoxic respiratory failure. 7. Volume overload. Improving with diuresis. 8. Hypokalemia from diuresis. 9. Anemia Plan: Maintain TPN per surgery. Lasix to 40 mg IV twice daily, urine output increased. Planning to transition to PO Lasix tomorrow. Continue to monitor renal function and urine output. Avoid nephrotoxins. Replace potassium, will likely need to increase dose in TPN while on IV diuresis
--- NOTE | 2024-04-20 13:58 | P.PN ---
Subjective Progress Note Date: 04/20/24 This is an 88-year-old female, recent history of fall about 2 weeks ago, sustained bruising to her left ribs. Patient was brought in yesterday to the ER mostly with symptoms of weakness, failure to thrive, poor oral intake, and suspected dehydration. Patient was also complaining of cough and shortness of breath, no fever no chills, no nausea no vomiting. In addition the patient had no bowel movement for the last 4 days. Apparently the patient has been experiencing intermittent episodes of confusion for the last 1 year. Workup in the ER included a CT of the abdomen and pelvis, it showed pneumoperitoneum and free fluid. Patient was felt that she has ruptured viscus, she was seen by surgery and she underwent exploratory laparotomy for her pneumoperitoneum, and she was found to have perforated duodenal ulcer. Patient had modified Lee patch and postoperatively the patient was extubated nonetheless she was admitted to the ICU, and this consult was initiated. I saw the patient in the ICU this morning, she is on 4 L nasal cannula, does not seem to be in any distress. She is already on Zosyn, and I added Diflucan. She is on LR at 125 cc/h. 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 Patient seen examined. Currently sitting upright in the chair. States she feels much better. Had a bowel movement this morning. Denies any nausea or vomiting On today's evaluation of 04/17/2024, the patient is being seen for a follow-up. The patient is recovering from her abdominal surgery. The patient undergone exploratory laparotomy and repair of a perforated duodenal ulcer and she is postop day #8 subsequent the patient required a bit to gastrectomy and the patient is this morning, the patient has awake and alert and she is currently on med oxygen. She is in normal sinus rhythm. She is on TPN which is running at a rate of 40 cc an hour. She remains on IV Zosyn. She is using the incentive spirometer. The patient has 2 SHRUTHI drains. The medial drain has drained approximately 180 cc of serous material and the right lower abdominal drain has put out approximately 10 cc. She has had paroxysmal atrial fibrillation. She remains on amiodarone running at 0.5 mg/min. The white cell count is at 17 with a hemoglobin 9.1 and a platelet count of 431. BUN is 28 with a creatinine of 1. Electrolytes are normal limits. LFTs are normal. Blood sugar is at 183. The patient remains on empiric antibiotic coverage with IV Zosyn. She is being given oral diet today. Should be able also to take her oral medication. Surgical abdominal wound scar is dry clean and intact. He is alert and awake and communicating. 04/18/2024, the patient is on BiPAP. The patient decompensated overnight and became hypoxic. Chest x-ray was done and the patient was found to have large bilateral pleural effusion the patient was given Lasix. Noted the patient was on room air oxygen prior to her being transferred to the medical floor. At that point, the patient was placed on a BiPAP. She was started on the Lasix. This morning, she remains on BiPAP at a pressure of over 5 cm of water and FiO2 was brought up to 70%. No chest pain. She is awake and alert and she is producing adequate amount of urine output. The white cell count is currently up to On her blood work 38.9 with a hemoglobin of 9 and a platelet count of 443. BUN is 32 with a creatinine of 1.2 and sodium levels of 136. I repeated her blood work again and her white cell count is up to 40 with a hemoglobin of 8.8. The patient got transferred to the intensive care unit. Immediately, I performed an ultrasound of the chest that showed bilateral pleural effusion and thoracentesis of the right lung was done, pending follow-up chest x-ray and a total of 600 cc of pleural fluid aspirated from the right lung. Hemodynamically stable. No hypotension. Remains on TPN. Remains on IV Zosyn. Remains on Lasix 20 mg IV every 12 hours. Awake and alert and communicating. On today's evaluation of 04/19/2024, the patient seems to be more comfortable compared to yesterday. The patient is currently on 2 L of oxygen by nasal cannula. The patient was at the pulmonary edema and developed bilateral pleural effusions. The patient had a thoracentesis yesterday without any complication. A total of 650 cc of pleural fluid was aspirated from the right lung. A repeat chest x-ray from today showing improvement in the volume status. There is still increased interstitial markings bilaterally and small bilateral pleural effusions in the lung bases bilaterally. The patient remains on IV Lasix. The patient is producing adequate amount of urine output. Nevertheless, the fluid balance over the past 24 hours has been +500 cc. The patient remains on TPN for nutritional support. The patient is receiving TPN at a rate of 60 cc an hour. The patient is also on a combination of Zosyn and Eraxis, and vancomycin.. Oxygenation is improved and the patient is currently off the BiPAP and the patient currently is on 3 L of oxygen by nasal cannula. BUN is 40 with a creat inine of 1.2. Sodium level is 137, white cell count is improved is currently down to 21 with a hemoglobin of 7.5 and a platelet count of 393. No other significant events otherwise and the patient's condition is slightly more stable compared to yesterday. She is awake and alert and communicating. 04/20. Patient seen and examined. Blood work done this morning showed WBC 13.9, hemoglobin 6.6, platelet count 397, sodium 135, potassium 3.1, BUN 40, creatinine 1.21, glucose 185. Patient being transfused unit of packed red blood cell. Patient had dark-colored stool this morning. REVIEW OF SYSTEMS: CONSTITUTIONAL: No fever, no malaise,. CARDIOVASCULAR: No chest pain, no palpitations, no syncope. PULMONARY: No shortness of breath, no cough, GASTROINTESTINAL: As mentioned above NEUROLOGICAL: No headaches, no weakness, PHYSICAL EXAMINATION: GENERAL: The patient is alert alert, chronically ill looking HEENT: Pupils are round and equally reacting to light. EOMI. No scleral icterus. No conjunctival pallor. Normocephalic, atraumatic. No pharyngeal erythema. No thyromegaly. CARDIOVASCULAR: S1 and S2 present. No murmurs, rubs, or gallops. PULMONARY: Diminished breath sound the bases bilaterally, no wheeze ABDOMEN: Soft, nontender, positive bowel sounds MUSCULOSKELETAL: No joint swelling or deformity. EXTREMITIES: No cyanosis, clubbing, or pedal edema. NEUROLOGICAL: Gross neurological examination did not reveal any focal deficits. SKIN: No rashes. Assessment and plan S/P exploratory laparotomy, repair of perforated duodenal ulcer, and application of a modified Lee patch. status post Billroth II gastrectomy, and Myles-en-Y reconstruction. Upper GI series, showing leak, at the site of the modified Lee patch. acute abdominal sepsis. Acute atrial fibrillation, with rapid ventricular response. Acute dehydration with acute kidney injury. Nonanion gap metabolic acidosis. Leukocytosis, secondary to sepsis. Hypovolemic hyponatremia, Monitor vital signs Monitor CBC Monitor CMP Continue telemetry monitoring Encourage use of incentive spirometer Continue oxygen supplementation Strict I's and O's, daily weights, continue IV Lasix 40 mg every 12 Continue TPN Continue IV vancomycin and Zosyn and Eraxis Being transfused 1 unit of packed red blood cell Continue amiodarone,Not a good anticoagulation candidate currently with concern of continued leak and decrease in Hgb Cardiology following General surgery following Critical care following Labs and medication were reviewed.. Continue same treatment. Continue with symptomatic treatment. Resume home medication. Monitor labs and vitals. DVT and GI prophylaxis. Further recommendations as per clinical course of the patient Dictation was produced using [employer] dictation software. please excuse any gramma tical, word or spelling errors. Objective - Vital Signs Vital signs: Vital Signs Temp 98.7 F 04/20/24 09:24 Pulse 69 04/20/24 09:24 Resp 16 04/20/24 09:24 BP 115/61 04/20/24 09:24 Pulse Ox 98 04/20/24 09:27 FiO2 70 04/18/24 14:00 Intake & Output 04/19/24 04/20/24 04/20/24 18:59 06:59 18:59 Intake Total 1655 1047 0 Output Total 1540 2210 Balance 115 -1163 0 Weight 62.5 kg Intake: IV 1555 0.9 NS 110 Anidulafungin 200 mg In 200 Sodium Chloride 0.9% 200 ml @ 84 mls/hr IVPB ONCE ONE Rx#:[id number] Mvi, Adult No.4 with Vit 480 K 10 ml Trace (Conc-1Ml/ Dose) 1 ml Sodium Acetate 30 meq Potassium Chloride 40 meq Calcium Gluconate 1 gm Magnesium Sulfate gm 1 gm In Amino Acid 5%-D15w 1,000 ml @ 60 mls/hr IV .BY DURATION [facility] Rx#:[id number] Piperacillin-Tazobactam 3 200 .375 gm In Sodium Chloride 0.9% 100 ml @ 25 mls/hr IVPB Q8H [facility] Rx#: [id number] Potassium Chloride 10 meq 200 In Water For Injection 1 100ml.bag @ 100 mls/hr IVPB Q1H [facility] Rx#: [id number] Sodium Acetate 30 meq 240 Potassium Chloride 40 meq Calcium Gluconate 1 gm Magnesium Sulfate gm 1 gm In Amino Acid 5%-D15w 1, 000 ml @ 60 mls/hr IV .BY DURATION [facility] Rx#: [id number] Vancomycin 750 mg In 125 Sodium Chloride 0.9% 250 ml @ 125 mls/hr IVPB ONCE ONE Rx#:[id number] Intake, IV Titration 1047 Amount Sodium Acetate 30 meq 1047 Potassium Chloride 40 meq Calcium Gluconate 1 gm Magnesium Sulfate gm 1 gm In Amino Acid 5%-D15w 1, 000 ml @ 60 mls/hr IV .BY DURATION [facility] Rx#: [id number] Oral 100 Blood Product 0 Unit 0 Output: Drainage 40 60 Lower Right Abdomen 0 Medial Abdomen 40 60 Urine 1500 2150 Other: Voiding Method Indwelling Catheter Indwelling Catheter # Bowel Movements 1 ABP, PAP, CO, CI - Last Documented Arterial Blood Pressure 90/59 - Labs CBC & Chem 7: 04/20/24 04:21 04/20/24 04:21 Labs: Abnormal Lab Results - Last 24 Hours (Table) 04/19/24 04/20/24 04/20/24 Range/Units 19:26 00:11 04:21 WBC (3.8-10.6) k/uL RBC (3.80-5.40) m/uL Hgb (11.4-16.0) gm/dL Hct (34.0-46.0) % Sodium 135 L (137-145) mmol/L Potassium 3.1 L (3.5-5.1) mmol/L BUN 48 H (7-17) mg/dL Creatinine 1.21 H (0.52-1.04) mg/dL Glucose 185 H (74-99) mg/dL POC Glucose (mg/dL) 203 H 211 H (70-110) mg/dL Calcium 7.5 L (8.4-10.2) mg/dL Phosphorus 2.3 L (2.5-4.5) mg/dL AST 48 H (14-36) U/L ALT 40 H (4-34) U/L Total Protein 4.1 L (6.3-8.2) g/dL Albumin 2.0 L (3.5-5.0) g/dL Stool Occult Blood (Negative) Crossmatch 04/20/24 04/20/24 04/20/24 Range/Units 04:21 05:19 05:46 WBC 13.9 H (3.8-10.6) k/uL RBC 2.27 L (3.80-5.40) m/uL Hgb 6.6 L* (11.4-16.0) gm/dL Hct 21.0 L (34.0-46.0) % Sodium (137-145) mmol/L Potassium (3.5-5.1) mmol/L BUN (7-17) mg/dL Creatinine (0.52-1.04) mg/dL Glucose (74-99) mg/dL POC Glucose (mg/dL) 221 H (70-110) mg/dL Calcium (8.4-10.2) mg/dL Phosphorus (2.5-4.5) mg/dL AST (14-36) U/L ALT (4-34) U/L Total Protein (6.3-8.2) g/dL Albumin (3.5-5.0) g/dL Stool Occult Blood (Negative) Crossmatch See Detail 04/20/24 Range/Units 10:01 WBC (3.8-10.6) k/uL RBC (3.80-5.40) m/uL Hgb (11.4-16.0) gm/dL Hct (34.0-46.0) % Sodium (137-145) mmol/L Potassium (3.5-5.1) mmol/L BUN (7-17) mg/dL Creatinine (0.52-1.04) mg/dL Glucose (74-99) mg/dL POC Glucose (mg/dL) (70-110) mg/dL Calcium (8.4-10.2) mg/dL Phosphorus (2.5-4.5) mg/dL AST (14-36) U/L ALT (4-34) U/L Total Protein (6.3-8.2) g/dL Albumin (3.5-5.0) g/dL Stool Occult Blood Positive H (Negative) Crossmatch Microbiology - Last 24 Hours (Table) 04/18/24 14:41 Gram Stain - Preliminary Pleural Fluid Body Fluid Culture - Preliminary 04/18/24 14:40 Blood Culture - Preliminary Blood
[2024-04-20] MEDS: CALCIUM GLUCONATE IV SCH (15:18)
[2024-04-20] MEDS: [UNRECOGNIZED DRUG - OTHER] IV SCH (15:18)
[2024-04-20] MEDS: POTASSIUM CHLORIDE IV SCH (15:18)
[2024-04-20] MEDS: SODIUM ACETATE IV SCH (15:18)
--- NOTE | 2024-04-20 16:25 | P.PN ---
Subjective Progress Note Date: 04/19/24 Principal diagnosis: Reason for follow-up is perforated duodenal ulcer/peritonitis Patient is a 88-year-old female presenting to the hospital abdominal pain diagnosed with the pneumoperitoneum secondary to the perforated jejunal ulcer status post laparotomy and modified Lee patch.Patient is status post reexploration with Billroth II gastrectomy with Myles-en-Y reconstruction completed on 04/12/2024 On today's evaluation that is 04/19/2024,the patient denies any fever or any chills, patient is breathing comfortably on 3 L current oxygen, the patient denies chest pain no shortness of breath and no significant cough, patient denies abdominal pain, no nausea vomiting or diarrhea. Patient white count is down to 21.5, creatinine is 1.29 Objective - Vital Signs Vital signs: Vital Signs Temp 98.4 F 04/19/24 08:00 Pulse 65 04/19/24 13:00 Resp 17 04/19/24 13:00 BP 132/60 04/19/24 13:00 Pulse Ox 96 04/19/24 13:00 FiO2 70 04/18/24 14:00 Intake & Output 04/18/24 04/19/24 04/19/24 18:59 06:59 18:59 Intake Total 1869.5 795 945 Output Total 735 1345 990 Balance 1134.5 -550 -45 Weight 46.5 kg 62.2 kg Intake: IV 500 735 845 0.9 NS 110 60 Anidulafungin 200 mg In 200 200 Sodium Chloride 0.9% 200 ml @ 84 mls/hr IVPB ONCE ONE Rx#:[id number] Mvi, Adult No.4 with Vit 120 K 10 ml Trace (Conc-1Ml/ Dose) 1 ml Sodium Acetate 30 meq Potassium Chloride 40 meq Calcium Gluconate 1 gm Magnesium Sulfate gm 1 gm In Amino Acid 5%-D15w 1,000 ml @ 60 mls/hr IV .BY DURATION [facility] Rx#:[id number] Mvi, Adult No.4 with Vit 405 K 10 ml Trace (Conc-1Ml/ Dose) 1 ml Sodium Acetate 30 meq Potassium Chloride 40 meq Calcium Gluconate 1 gm Magnesium Sulfate gm 1 gm Potassium Phosphate 12 mmol In Amino Acid 5%-D15w 1,000 ml @ 45 mls/hr IV . [id number] [facility] Rx#:[id number] Piperacillin-Tazobactam 3 100 100 100 .375 gm In Sodium Chloride 0.9% 100 ml @ 25 mls/hr IVPB Q8H [facility] Rx#: [id number] Sodium Acetate 30 meq 120 240 Potassium Chloride 40 meq Calcium Gluconate 1 gm Magnesium Sulfate gm 1 gm In Amino Acid 5%-D15w 1, 000 ml @ 60 mls/hr IV .BY DURATION [facility] Rx#: [id number] Vancomycin 200 Vancomycin 750 mg In 125 Sodium Chloride 0.9% 250 ml @ 125 mls/hr IVPB ONCE ONE Rx#:[id number] Intake, IV Titration 1369.5 60 Amount Mvi, Adult No.4 with Vit 360 60 K 10 ml Trace (Conc-1Ml/ Dose) 1 ml Sodium Acetate 30 meq Potassium Chloride 40 meq Calcium Gluconate 1 gm Magnesium Sulfate gm 1 gm In Amino Acid 5%-D15w 1,000 ml @ 60 mls/hr IV .BY DURATION [facility] Rx#:[id number] Mvi, Adult No.4 with Vit 1009.5 K 10 ml Trace (Conc-1Ml/ Dose) 1 ml Sodium Acetate 30 meq Potassium Chloride 40 meq Calcium Gluconate 1 gm Magnesium Sulfate gm 1 gm Potassium Phosphate 12 mmol In Amino Acid 5%-D15w 1,000 ml @ 45 mls/hr IV . [id number] [facility] Rx#:[id number] Oral 100 Output: Drainage 60 70 40 Lower Right Abdomen 0 10 Medial Abdomen 60 60 40 Urine 675 1275 950 Other: Voiding Method Indwelling Catheter Indwelling Catheter Indwelling Catheter # Bowel Movements 1 ABP, PAP, CO, CI - Last Documented Arterial Blood Pressure 90/59 - Exam GENERAL DESCRIPTION: An elderly female lying in bed in no distress RESPIRATORY SYSTEM: Unlabored breathing , decreased breath sounds at bases HEART: S1 S2 regular rate and rhythm , ABDOMEN: Soft , mild tenderness EXTREMITIES: No edema feet - Labs CBC & Chem 7: 04/20/24 04:21 04/20/24 04:21 Labs: Abnormal Lab Results - Last 24 Hours (Table) 04/18/24 04/18/24 04/18/24 Range/Units 11:34 14:41 17:33 WBC (3.8-10.6) k/uL RBC (3.80-5.40) m/uL Hgb (11.4-16.0) gm/dL Hct (34.0-46.0) % Chloride (98-107) mmol/L BUN (7-17) mg/dL Creatinine (0.52-1.04) mg/dL Glucose (74-99) mg/dL POC Glucose (mg/dL) 169 H (70-110) mg/dL Calcium (8.4-10.2) mg/dL AST 43 H (14-36) U/L Total Protein (6.3-8.2) g/dL Albumin (3.5-5.0) g/dL Fluid Appearance Slightly Hazy A (Clear) 04/18/24 04/19/24 04/19/24 Range/Units 23:11 06:12 06:12 WBC 21.5 H (3.8-10.6) k/uL RBC 2.55 L (3.80-5.40) m/uL Hgb 7.5 L (11.4-16.0) gm/dL Hct 23.4 L (34.0-46.0) % Chloride 109 H (98-107) mmol/L BUN 40 H (7-17) mg/dL Creatinine 1.29 H (0.52-1.04) mg/dL Glucose 170 H (74-99) mg/dL POC Glucose (mg/dL) 216 H (70-110) mg/dL Calcium 7.8 L (8.4-10.2) mg/dL AST (14-36) U/L Total Protein 4.2 L (6.3-8.2) g/dL Albumin 2.0 L (3.5-5.0) g/dL Fluid Appearance (Clear) 04/19/24 Range/Units 06:27 WBC (3.8-10.6) k/uL RBC (3.80-5.40) m/uL Hgb (11.4-16.0) gm/dL Hct (34.0-46.0) % Chloride (98-107) mmol/L BUN (7-17) mg/dL Creatinine (0.52-1.04) mg/dL Glucose (74-99) mg/dL POC Glucose (mg/dL) 200 H (70-110) mg/dL Calcium (8.4-10.2) mg/dL AST (14-36) U/L Total Protein (6.3-8.2) g/dL Albumin (3.5-5.0) g/dL Fluid Appearance (Clear) Microbiology - Last 24 Hours (Table) 04/18/24 14:41 Gram Stain - Preliminary Pleural Fluid Body Fluid Culture - Preliminary Assessment and Plan (1) Peritonitis Current Visit: Yes Status: Acute Code(s): K65.9 - PERITONITIS, UNSPECIFIED SNOMED Code(s): 04269047 (2) Leukocytosis Current Visit: Yes Status: Acute Code(s): D72.829 - ELEVATED WHITE BLOOD CELL COUNT, UNSPECIFIED SNOMED Code(s): 331381203 (3) Perforated duodenal ulcer Current Visit: Yes Status: Acute Code(s): K26.5 - CHRONIC OR UNSPECIFIED DUODENAL ULCER WITH PERFORATION SNOMED Code(s): 42510609 Plan: 1patient presented to hospital with abdominal pain constipation has been diagnosed with the pneumoperitoneum secondary to perforated duodenal ulcer status post laparotomy and repair of the perforated jejunal ulcer we will need to cover for gram-negative and yeast. 2patient upper GI that is suspicious for leak patient is status post reexploration with Billroth II gastrectomy with Myles-en-Y reconstruction along with abdominal cultures which are so far negative 3-patient did have improvement in her respiratory status and the patient white count is trending down, patient to continue Zosyn and Eraxis, monitor clinical course closely Dictation was produced using [employer] dictation software. please excuse any g rammatical, word or spelling errors. Time with Patient: Less than 30
--- NOTE | 2024-04-20 16:26 | P.PN ---
Subjective Progress Note Date: 04/20/24 Principal diagnosis: Reason for follow-up is perforated duodenal ulcer/peritonitis Patient is a 88-year-old female presenting to the hospital abdominal pain diagnosed with the pneumoperitoneum secondary to the perforated jejunal ulcer status post laparotomy and modified Lee patch.Patient is status post reexploration with Billroth II gastrectomy with Myles-en-Y reconstruction completed on 04/12/2024 On today's evaluation that is 04/20/2024,the patient remains to be afebrile, patient is on 2 L nasal cannula supplemental oxygen and denies any shortness of breath no chest pain or cough.Patient denies having any nausea or vomiting, no abdominal pain and no diarrhea has been reported. Patient white count is 13.9 creatinine is 1.29 Objective - Vital Signs Vital signs: Vital Signs Temp 98 F 04/20/24 11:23 Pulse 71 04/20/24 11:23 Resp 16 04/20/24 11:23 BP 133/61 04/20/24 11:23 Pulse Ox 97 04/20/24 11:23 FiO2 70 04/18/24 14:00 Intake & Output 04/19/24 04/20/24 04/20/24 18:59 06:59 18:59 Intake Total 1655 1047 310 Output Total 1540 2210 Balance 115 -1163 310 Weight 62.5 kg Intake: IV 1555 0.9 NS 110 Anidulafungin 200 mg In 200 Sodium Chloride 0.9% 200 ml @ 84 mls/hr IVPB ONCE ONE Rx#:[id number] Mvi, Adult No.4 with Vit 480 K 10 ml Trace (Conc-1Ml/ Dose) 1 ml Sodium Acetate 30 meq Potassium Chloride 40 meq Calcium Gluconate 1 gm Magnesium Sulfate gm 1 gm In Amino Acid 5%-D15w 1,000 ml @ 60 mls/hr IV .BY DURATION [facility] Rx#:[id number] Piperacillin-Tazobactam 3 200 .375 gm In Sodium Chloride 0.9% 100 ml @ 25 mls/hr IVPB Q8H [facility] Rx#: [id number] Potassium Chloride 10 meq 200 In Water For Injection 1 100ml.bag @ 100 mls/hr IVPB Q1H [facility] Rx#: [id number] Sodium Acetate 30 meq 240 Potassium Chloride 40 meq Calcium Gluconate 1 gm Magnesium Sulfate gm 1 gm In Amino Acid 5%-D15w 1, 000 ml @ 60 mls/hr IV .BY DURATION [facility] Rx#: [id number] Vancomycin 750 mg In 125 Sodium Chloride 0.9% 250 ml @ 125 mls/hr IVPB ONCE ONE Rx#:[id number] Intake, IV Titration 1047 Amount Sodium Acetate 30 meq 1047 Potassium Chloride 40 meq Calcium Gluconate 1 gm Magnesium Sulfate gm 1 gm In Amino Acid 5%-D15w 1, 000 ml @ 60 mls/hr IV .BY DURATION [facility] Rx#: [id number] Oral 100 Blood Product 310 Rc As-1 Unit 310 [id number] Output: Drainage 40 60 Lower Right Abdomen 0 Medial Abdomen 40 60 Urine 1500 2150 Other: Voiding Method Indwelling Catheter Indwelling Catheter # Bowel Movements 1 ABP, PAP, CO, CI - Last Documented Arterial Blood Pressure 90/59 - Exam GENERAL DESCRIPTION: An elderly female lying in bed in no distress RESPIRATORY SYSTEM: Unlabored breathing , decreased breath sounds at bases HEART: S1 S2 regular rate and rhythm , ABDOMEN: Soft , mild tenderness EXTREMITIES: No edema feet - Labs CBC & Chem 7: 04/20/24 04:21 04/20/24 04:21 Labs: Abnormal Lab Results - Last 24 Hours (Table) 04/19/24 04/20/24 04/20/24 Range/Units 19:26 00:11 04:21 WBC (3.8-10.6) k/uL RBC (3.80-5.40) m/uL Hgb (11.4-16.0) gm/dL Hct (34.0-46.0) % Sodium 135 L (137-145) mmol/L Potassium 3.1 L (3.5-5.1) mmol/L BUN 48 H (7-17) mg/dL Creatinine 1.21 H (0.52-1.04) mg/dL Glucose 185 H (74-99) mg/dL POC Glucose (mg/dL) 203 H 211 H (70-110) mg/dL Calcium 7.5 L (8.4-10.2) mg/dL Phosphorus 2.3 L (2.5-4.5) mg/dL AST 48 H (14-36) U/L ALT 40 H (4-34) U/L Total Protein 4.1 L (6.3-8.2) g/dL Albumin 2.0 L (3.5-5.0) g/dL Stool Occult Blood (Negative) Crossmatch 04/20/24 04/20/24 04/20/24 Range/Units 04:21 05:19 05:46 WBC 13.9 H (3.8-10.6) k/uL RBC 2.27 L (3.80-5.40) m/uL Hgb 6.6 L* (11.4-16.0) gm/dL Hct 21.0 L (34.0-46.0) % Sodium (137-145) mmol/L Potassium (3.5-5.1) mmol/L BUN (7-17) mg/dL Creatinine (0.52-1.04) mg/dL Glucose (74-99) mg/dL POC Glucose (mg/dL) 221 H (70-110) mg/dL Calcium (8.4-10.2) mg/dL Phosphorus (2.5-4.5) mg/dL AST (14-36) U/L ALT (4-34) U/L Total Protein (6.3-8.2) g/dL Albumin (3.5-5.0) g/dL Stool Occult Blood (Negative) Crossmatch See Detail 04/20/24 04/20/24 Range/Units 10:01 11:48 WBC (3.8-10.6) k/uL RBC (3.80-5.40) m/uL Hgb (11.4-16.0) gm/dL Hct (34.0-46.0) % Sodium (137-145) mmol/L Potassium (3.5-5.1) mmol/L BUN (7-17) mg/dL Creatinine (0.52-1.04) mg/dL Glucose (74-99) mg/dL POC Glucose (mg/dL) 193 H (70-110) mg/dL Calcium (8.4-10.2) mg/dL Phosphorus (2.5-4.5) mg/dL AST (14-36) U/L ALT (4-34) U/L Total Protein (6.3-8.2) g/dL Albumin (3.5-5.0) g/dL Stool Occult Blood Positive H (Negative) Crossmatch Microbiology - Last 24 Hours (Table) 04/18/24 14:41 Anaerobic Culture - Preliminary Pleural Fluid 04/18/24 14:41 Gram Stain - Preliminary Pleural Fluid Body Fluid Culture - Preliminary 04/18/24 14:40 Blood Culture - Preliminary Blood Assessment and Plan (1) Peritonitis Current Visit: Yes Status: Acute Code(s): K65.9 - PERITONITIS, UNSPECIFIED SNOMED Code(s): 64437520 (2) Leukocytosis Current Visit: Yes Status: Acute Code(s): D72.829 - ELEVATED WHITE BLOOD CELL COUNT, UNSPECIFIED SNOMED Code(s): 448203773 (3) Perforated duodenal ulcer Current Visit: Yes Status: Acute Code(s): K26.5 - CHRONIC OR UNSPECIFIED DUODENAL ULCER WITH PERFORATION SNOMED Code(s): 27741557 Plan: 1patient presented to hospital with abdominal pain constipation has been diagnosed with the pneumoperitoneum secondary to perforated duodenal ulcer status post laparotomy and repair of the perforated jejunal ulcer we will need to cover for gram-negative and yeast. 2patient upper GI that is suspicious for leak patient is status post reexploration with Billroth II gastrectomy with Myles-en-Y reconstruction along with abdominal cultures which are so far negative 3-patient is slowly clinical improving and the patient white count is trending down, patient to continue Zosyn and Eraxis, and continue supportive care Dictation was produced using [employer] dictation software. please excuse any grammatical, word or spelling errors. Time with Patient: Less than 30
[2024-04-20 16:51] LABS: Glucose,Whole Blood 161 mg/dL (70-110)
[2024-04-20 16:57] LABS: Basophils # (A) 0.1 k/uL (0-0.2); Basophils % (A) 0 %; Eosinophils # (A) 0.1 k/uL (0-0.7); Eosinophils % (A) 1 %; HCT 26.9 % (34.0-46.0); Hypochromasia Slight; Lymphocytes # (A) 1.4 k/uL (1.0-4.8); Lymphocytes % (A) 9 %; MCHC 32.2 g/dL (31.0-37.0); MCV 89.9 fL (80.0-100.0); Mean Platelet Volume 9.2; Monocytes # (A) 0.6 k/uL (0-1.0); Monocytes % (A) 4 %; Neutrophils # (A) 13.2 k/uL (1.3-7.7); Neutrophils % (A) 84 %; Platelet Count 443 k/uL (150-450); RBC 2.99 m/uL (3.80-5.40); RDW 14.8 % (11.5-15.5); WBC 15.8 k/uL (3.8-10.6)
[2024-04-20 17:01] LABS: HGB 8.7 gm/dL (11.4-16.0)
--- NOTE | 2024-04-20 17:28 | P.PN ---
Subjective Progress Note Date: 04/20/24 This is an 88-year-old female, recent history of fall about 2 weeks ago, sustained bruising to her left ribs. Patient was brought in yesterday to the ER mostly with symptoms of weakness, failure to thrive, poor oral intake, and suspected dehydration. Patient was also complaining of cough and shortness of breath, no fever no chills, no nausea no vomiting. In addition the patient had no bowel movement for the last 4 days. Apparently the patient has been experiencing intermittent episodes of confusion for the last 1 year. Workup in the ER included a CT of the abdomen and pelvis, it showed pneumoperitoneum and free fluid. Patient was felt that she has ruptured viscus, she was seen by surgery and she underwent exploratory laparotomy for her pneumoperitoneum, and she was found to have perforated duodenal ulcer. Patient had modified Lee patch and postoperatively the patient was extubated nonetheless she was admitted to the ICU, and this consult was initiated. I saw the patient in the ICU this morning, she is on 4 L nasal cannula, does not seem to be in any distress. She is already on Zosyn, and I added Diflucan. She is on LR at 125 cc/h. Her WBC count is 28.6, electrolytes are normal hemoglobin is 10.7 BUN is 97 creatinine down to 2.45 from 3.27 yesterday. Progress note dated April 10, 2024. 88-year-old female seen yesterday in consultation. She was admitted on April 08, with confusion and weakness. The patient had a repair of a perforated duodenal ulcer on April 09. Today is postop day #1. She is currently seen today in room 261. She is currently on 6 L of oxygen by nasal cannula. She has an NG tube in place. She is getting lactated Ringer's at 125 cc an hour. For atrial fibrillation with a rapid ventricular response, she was started on Cardizem drip at 5 mg an hour, and amiodarone 0.5 mg/min. No new labs today other than a glucose of 154. The labs from yesterday are reviewed. White count was 28.6. Hemoglobin 10.7, platelet count was normal. BUN and creatinine were 97 and 2.45. Chest x-ray suggested bilateral pleural effusions. Progress note dated April 11, 2024. 88-year-old female seen today in room 261. The patient was admitted on April 08, with confusion and weakness. The patient was discovered to have a perforated duodenal ulcer, and had a surgical repair performed on April 09. Today is postop day #2. The patient is currently without distress. She is on room air. NG tube remains in place. She is getting lactated Ringer's at 75 cc an hour. Because of atrial fibrillation and RVR, she continues on amiodarone 0.5 mg/min, and Cardizem at 5 mg an hour. Lab data includes a white count 34.6, hemoglobin 9.1, hematocrit 36.6, and a platelet count 442,000. Sodium 143, potassium 4.1, chlorides 113, CO2 23, BUN 71, creatinine 1.64. Glucose is 134. Albumin is 2.3. Blood cultures are currently negative. No chest x-ray today has been ordered. Progress note dated April 12, 2024. This is an 88-year-old female who is seen in room 261. The patient was admitted back on April 08, with confusion and weakness. She was discovered to have a perforated duodenal ulcer, and had surgical repair performed on April 09. Today is postoperative day #3. The patient is going to have a upper GI study today. She is getting lactated Ringer's at 75 cc an hour, 3 L of oxygen by nasal cannula, Cardizem at 5 mg an hour, and amiodarone at 0.5 mg/min. White count was 37.4, hemoglobin 11.6, hematocrit 38.5, and platelet count was normal. Sodium 145, potassium 3.2, chloride 115, CO2 24, BUN 52, creatinine 1.26. Glucose 123. Calcium 8.2. BUN 2.2. Blood cultures are currently negative. The patient's chest x-ray is stable, with some basilar atelectasis on the right. Upper GI study showed a leak, at the site of patch placement, in the duodenal bulb. Progress note dated April 13, 2024. 88-year-old female seen today in room 261. The patient is postop day #1, status post Billroth II gastrectomy, and Myles-en-Y reconstruction. The patient is currently on the ventilator. Ventilator settings include volume assist-control, rate 16, tidal volume 350, FiO2 40%, PEEP of 5. Blood gases show pO2 128, pCO2 34, pH is 7.43. The blood gases were done on 50% FiO2. The patient is on lactated Ringer's at 75 cc an hour, amiodarone 0.5 mg/min, Cardizem at 5 mg/h, and propofol, is restarted at a low rate. Current labs include a white count 34.8, hemoglobin 9.5, hematocrit 32.2, and a platelet count of 325,000. Sodium 141, potassium 4, chloride 114, CO2 21, BUN 48, creatinine 1.51. Glucose is 133. Calcium is 7. Blood cultures are negative. Chest x-ray shows in addition to endotracheal tube, and central venous line, blunting of the costophrenic angles. Progress note dated April 14, 2024. 88-year-old female seen today in room 261. She is postop day #2, status post Billroth II gastrectomy and Myles-en-Y reconstruction. The patient is on the ventilator. She was maintained on the ventilator overnight. Currently, the patient is on volume assist-control, rate 16, tidal volume 350, FiO2 30%, PEEP of 5. Blood gases show pO2 of 148, pCO2 33, pH is 7.42. Blood gases were done on 40%. The patient continues on amiodarone at 0.5 mg/min, lactated Ringer's at 75 cc an hour, propofol at 35 mcg/kg/min, and TPN at 30 cc an hour, to be increased to 55 cc an hour. Current white count is 25.2, hemoglobin 9.5, hematocrit 35.5, platelet count 362,000. Sodium 142, potassium 3.3, chlorides 112, CO2 25, BUN 50, creatinine 1.83. Albumin level was 1.9. Chest x-ray is largely unchanged. Progress note dated April 15, 2024. The patient is seen again in room 261. The patient was successfully extubated yesterday, April 14. She is currently on room air. She is receiving a saline IV at KVO, and TPN at 40 cc an hour. Current labs include a white count 18.1, hemoglobin 8.9, hematocrit 27.4, and a platelet count of 334,000. Sodium 140, potassium 3.9, chlorides 114, CO2 23, BUN 46, and creatinine 1.36. Glucose is 170. Calcium is 7.2. Phosphorus is 1.9. Magnesium is 2.0. Progress note dated April 16, 2024. The patient is seen today in room 261. She is currently on room air. She continues on amiodarone at 0.5 mg/min. She is getting TPN at 40 cc an hour, and saline at KVO. She does continue on Zosyn. All her cultures are thus far negative. She has no specific complaints today. According to the nurse, she is a bit anxious. Current labs include a sodium 139, potassium 3.9, chlorides 114, CO2 23, BUN 35, and creatinine 1.15. Glucose is 178. Calcium 7.5, phosphorus 2.3, and magnesium is normal. Culture data is negative. Venous Doppler yesterday, shows a superficial venous thrombosis involving the cephalic vein, of the left upper extremity. On today's evaluation of 04/17/2024, the patient is being seen for a follow-up. The patient is recovering from her abdominal surgery. The patient undergone exploratory laparotomy and repair of a perforated duodenal ulcer and she is postop day #8 subsequent the patient required a bit to gastrectomy and the patient is this morning, the patient has awake and alert and she is currently on med oxygen. She is in normal sinus rhythm. She is on TPN which is running at a rate of 40 cc an hour. She remains on IV Zosyn. She is using the incentive spirometer. The patient has 2 SHRUTHI drains. The medial drain has drained approximately 180 cc of serous material and the right lower abdominal drain has put out approximately 10 cc. She has had paroxysmal atrial fibrillation. She remains on amiodarone running at 0.5 mg/min. The white cell count is at 17 with a hemoglobin 9.1 and a platelet count of 431. BUN is 28 with a creatinine of 1. Electrolytes are normal limits. LFTs are normal. Blood sugar is at 183. The patient remains on empiric antibiotic coverage with IV Zosyn. She is being given oral diet today. Should be able also to take her oral medication. Surgical abdominal wound scar is dry clean and intact. He is alert and awake and communicating. 04/18/2024, the patient is on BiPAP. The patient decompensated overnight and became hypoxic. Chest x-ray was done and the patient was found to have large bilateral pleural effusion the patient was given Lasix. Noted the patient was on room air oxygen prior to her being transferred to the medical floor. At that point, the patient was placed on a BiPAP. She was started on the Lasix. This morning, she remains on BiPAP at a pressure of over 5 cm of water and FiO2 was brought up to 70%. No chest pain. She is awake and alert and she is producing adequate amount of urine output. The white cell count is currently up to On her blood work 38.9 with a hemoglobin of 9 and a platelet count of 443. BUN is 32 with a creatinine of 1.2 and sodium levels of 136. I repeated her blood work again and her white cell count is up to 40 with a hemoglobin of 8.8. The patient got transferred to the intensive care unit. Immediately, I performed an ultrasound of the chest that showed bilateral pleural effusion and thoracentesis of the right lung was done, pending follow-up chest x-ray and a total of 600 cc of pleural fluid aspirated from the right lung. Hemodynamically stable. No hypotension. Remains on TPN. Remains on IV Zosyn. Remains on Lasix 20 mg IV every 12 hours. Awake and alert and communicating. On today's evaluation of 04/19/2024, the patient seems to be more comfortable comp ared to yesterday. The patient is currently on 2 L of oxygen by nasal cannula. The patient was at the pulmonary edema and developed bilateral pleural effusions. The patient had a thoracentesis yesterday without any complication. A total of 650 cc of pleural fluid was aspirated from the right lung. A repeat chest x-ray from today showing improvement in the volume status. There is still increased interstitial markings bilaterally and small bilateral pleural effusions in the lung bases bilaterally. The patient remains on IV Lasix. The patient is producing adequate amount of urine output. Nevertheless, the fluid balance over the past 24 hours has been +500 cc. The patient remains on TPN for nutritional support. The patient is receiving TPN at a rate of 60 cc an hour. The patient is also on a combination of Zosyn and Eraxis, and vancomycin.. Oxygenation is improved and the patient is currently off the BiPAP and the patient currently is on 3 L of oxygen by nasal cannula. BUN is 40 with a creatinine of 1.2. Sodium level is 137, white cell count is improved is currently down to 21 with a hemoglobin of 7.5 and a platelet count of 393. No other significant events otherwise and the patient's condition is slightly more stable compared to yesterday. She is awake and alert and communicating. On 04/20/2024, the patient is being seen for a follow-up. The patient is doing well on 3 L of oxygen by nasal cannula. No significant respiratory distress. A follow-up chest x-ray was done today and showed improvement in volume status with small bilateral pleural effusion and some increased interstitial markings bilaterally. Nevertheless, the patient has been diuresed adequately and the patient is currently in negative fluid balance and the patient will be switched to oral Lasix. IV Lasix will be discontinued and the patient has been switched to 40 mg of Lasix on a daily basis. Remains on TPN for nutritional support. She did have a bloody bowel movement, unsure if it is melanotic. This will be monitored as the patient hemoglobin has remeasured at 8.7 on today's evaluation. The white cell count is 15.8. BUN is 48 with a creatinine 1.2 and sodium levels at 135 and a potassium level of 3.1. LFTs are all stable. Antibiotic coverage remains unchanged and the patient remains on a combination of Eraxis and Zosyn. Surgical wound site is dry clean and intact. Renal function remained stable Objective - Vital Signs Vital signs: Vital Signs Temp 98.7 F 04/20/24 09:24 Pulse 69 04/20/24 09:24 Resp 16 04/20/24 09:24 BP 115/61 04/20/24 09:24 Pulse Ox 98 04/20/24 09:27 FiO2 70 04/18/24 14:00 Intake & Output 04/19/24 04/20/24 04/20/24 18:59 06:59 18:59 Intake Total 1655 1047 0 Output Total 1540 2210 Balance 115 -1163 0 Weight 62.5 kg Intake: IV 1555 0.9 NS 110 Anidulafungin 200 mg In 200 Sodium Chloride 0.9% 200 ml @ 84 mls/hr IVPB ONCE ONE Rx#:[id number] Mvi, Adult No.4 with Vit 480 K 10 ml Trace (Conc-1Ml/ Dose) 1 ml Sodium Acetate 30 meq Potassium Chloride 40 meq Calcium Gluconate 1 gm Magnesium Sulfate gm 1 gm In Amino Acid 5%-D15w 1,000 ml @ 60 mls/hr IV .BY DURATION [facility] Rx#:[id number] Piperacillin-Tazobactam 3 200 .375 gm In Sodium Chloride 0.9% 100 ml @ 25 mls/hr IVPB Q8H [facility] Rx#: [id number] Potassium Chloride 10 meq 200 In Water For Injection 1 100ml.bag @ 100 mls/hr IVPB Q1H [facility] Rx#: [id number] Sodium Acetate 30 meq 240 Potassium Chloride 40 meq Calcium Gluconate 1 gm Magnesium Sulfate gm 1 gm In Amino Acid 5%-D15w 1, 000 ml @ 60 mls/hr IV .BY DURATION [facility] Rx#: [id number] Vancomycin 750 mg In 125 Sodium Chloride 0.9% 250 ml @ 125 mls/hr IVPB ONCE ONE Rx#:[id number] Intake, IV Titration 1047 Amount Sodium Acetate 30 meq 1047 Potassium Chloride 40 meq Calcium Gluconate 1 gm Magnesium Sulfate gm 1 gm In Amino Acid 5%-D15w 1, 000 ml @ 60 mls/hr IV .BY DURATION [facility] Rx#: [id number] Oral 100 Blood Product 0 Unit 0 Output: Drainage 40 60 Lower Right Abdomen 0 Medial Abdomen 40 60 Urine 1500 2150 Other: Voiding Method Indwelling Catheter Indwelling Catheter # Bowel Movements 1 ABP, PAP, CO, CI - Last Documented Arterial Blood Pressure 90/59 - Exam No acute distress, awake and alert, no significant respiratory distress and the patient is currently on 3 L of oxygen by nasal cannula. HEENT examination is grossly unremarkable. Neck supple. Full range of motion. No adenopathy thyromegaly or neck vein distention. Cardiovascular examination reveals an irregular rhythm and rate. S1-S2 normal. No S3 or S4. No discernible murmur noted. Lungs reveal rhonchi. No wheezes or crackles. Breath sounds are quite diminished in lung bases and there is also dullness to question. The patient has thoracic kyphosis. Abdomen soft, without bowel sounds. Abdominal incision is dressed. The patient has SHRUTHI drains in place, output is minimal at this point in time. No significant abdominal distention. Positive bowel sounds. SHRUTHI drains are in place and serous output is noted. Extremities are intact. No cyanosis clubbing or edema. Skin is without rash or lesion. Neurologic examination is brief but nonfocal. - Labs CBC & Chem 7: 04/20/24 16:24 04/20/24 04:21 Labs: Abnormal Lab Results - Last 24 Hours (Table) 04/19/24 04/20/24 04/20/24 Range/Units 19:26 00:11 04:21 WBC (3.8-10.6) k/uL RBC (3.80-5.40) m/uL Hgb (11.4-16.0) gm/dL Hct (34.0-46.0) % Sodium 135 L (137-145) mmol/L Potassium 3.1 L (3.5-5.1) mmol/L BUN 48 H (7-17) mg/dL Creatinine 1.21 H (0.52-1.04) mg/dL Glucose 185 H (74-99) mg/dL POC Glucose (mg/dL) 203 H 211 H (70-110) mg/dL Calcium 7.5 L (8.4-10.2) mg/dL Phosphorus 2.3 L (2.5-4.5) mg/dL AST 48 H (14-36) U/L ALT 40 H (4-34) U/L Total Protein 4.1 L (6.3-8.2) g/dL Albumin 2.0 L (3.5-5.0) g/dL Stool Occult Blood (Negative) Crossmatch 04/20/24 04/20/24 04/20/24 Range/Units 04:21 05:19 05:46 WBC 13.9 H (3.8-10.6) k/uL RBC 2.27 L (3.80-5.40) m/uL Hgb 6.6 L* (11.4-16.0) gm/dL Hct 21.0 L (34.0-46.0) % Sodium (137-145) mmol/L Potassium (3.5-5.1) mmol/L BUN (7-17) mg/dL Creatinine (0.52-1.04) mg/dL Glucose (74-99) mg/dL POC Glucose (mg/dL) 221 H (70-110) mg/dL Calcium (8.4-10.2) mg/dL Phosphorus (2.5-4.5) mg/dL AST (14-36) U/L ALT (4-34) U/L Total Protein (6.3-8.2) g/dL Albumin (3.5-5.0) g/dL Stool Occult Blood (Negative) Crossmatch See Detail 04/20/24 Range/Units 10:01 WBC (3.8-10.6) k/uL RBC (3.80-5.40) m/uL Hgb (11.4-16.0) gm/dL Hct (34.0-46.0) % Sodium (137-145) mmol/L Potassium (3.5-5.1) mmol/L BUN (7-17) mg/dL Creatinine (0.52-1.04) mg/dL Glucose (74-99) mg/dL POC Glucose (mg/dL) (70-110) mg/dL Calcium (8.4-10.2) mg/dL Phosphorus (2.5-4.5) mg/dL AST (14-36) U/L ALT (4-34) U/L Total Protein (6.3-8.2) g/dL Albumin (3.5-5.0) g/dL Stool Occult Blood Positive H (Negative) Crossmatch Microbiology - Last 24 Hours (Table) 04/18/24 14:41 Gram Stain - Preliminary Pleural Fluid Body Fluid Culture - Preliminary 04/18/24 14:40 Blood Culture - Preliminary Blood Assessment and Plan Plan: Acute hypoxic respiratory failure and the patient is currently on 3 L of O2 nasal cannula. The patient is being diuresed. Patient underwent thoracentesis of the right lung and a total of 600 cc of transudative pleural fluid was aspirated from the right lung without any major complications. Follow-up chest x-ray from today still showing some CHF findings. Overall pulm status is improved and the patient will be switched to oral Lasix CHF with bilateral pleural effusions and pulm vascular congestion/edema, currently on oral Lasix Acute leukocytosis, rule out septic event. Possibility of anastomotic leak cannot be completely excluded. Currently on IV Zosyn, vancomycin and Eraxis. The white cell count is improving. Postoperative day # 11, S/P exploratory laparotomy, repair of perforated duodenal ulcer, and application of a modified Lee patch. Upper GI series, showing leak, at the site of the modified Lee patch. Postoperative day # 7, status post Billroth II gastrectomy, and Myles-en-Y reconstruction. The patient remains on TPN for nutritional support. Acute hypoxic respiratory failure, recovered and the patient was extubated on 04/14/2024. The patient was room air oxygen and the patient got transferred to the medical floor to be readmitted back to the ICU the patient was weaned off the BiPAP and the patient is currently on liters of O2 nasal cannula Acute abdominal sepsis, secondary to above and the patient is currently on IV Zosyn, vancomycin and Eraxis Acute atrial fibrillation, with rapid ventricular response. The cardiac rhythm is back to sinus and the patient oral amiodarone History of splenic hematoma, without rupture. The patient is currently on no anticoagulants Acute dehydration with acute kidney injury. Recovered and the patient renal function is normal Nonanion gap metabolic acidosis, recovered Hypovolemic hyponatremia, recovered. General medical debility. Plan: Watch for any signs of GI bleeding Keep the patient on O2 at 3 L/min nasal cannula Switch this patient to oral Lasix Thoracentesis of the right lung was done without any complications Monitor the output from the SHRUTHI drain and general surgery is on the case Surgical scar is dry clean and intact Send this is a blood cultures x 2 and continue the patient on vancomycin Zosyn and Eraxis Adequate pain control Cardiac rhythm is sinus Will continue to follow. transferred out of the intensive care unit
--- NOTE | 2024-04-20 18:13 | P.PN ---
Subjective Progress Note Date: 04/20/24 CHIEF COMPLAINT: Perforated duodenal ulcer HISTORY OF PRESENT ILLNESS: The patient is a 88-year-old female admitted for perforated duodenal ulcer. Patient has had 2 exploratory laparotomies with recent Billroth II and Myles-en-Y reconstruction 04/12/2024. She has been transferred out of the intensive care unit. She has SHRUTHI drains. She is having bowel movements. Patient did have 1 unit of blood for hemoglobin 6.6 now up to 8.7. Family friend at bedside reports patient pre-existing Guy eats very little. She is tolerating clear liquid. ROS: No fevers or chills. No new chest pain. No productive sputum , PHYSICAL EXAM: VITAL SIGNS: Reviewed CONSTITUTIONAL: Well developed and in no acute distress. EYES: Conjuctivae without sclera icterus. Extraocular movements grossly intact. HEAD, EARS, NOSE, THROAT: Moist buccal mucosa. Head is atraumatic, normocephalic. She is hard of hearing. No nasal drainage. RESPIRATORY: Non-labored respirations and equal bilateral excursions. CARDIOVASCULAR: Palpable 2+ radial pulses. ABDOMEN: SHRUTHI drains intact. SHRUTHI serous. No peritonitis. MUSCULOSKELETAL: No gross deformity of the lower extremities noted. No clubbing. No cyanosis. SKIN: Good skin turgor. Well perfused. NEUROLOGIC: Cranial nerves II through XII grossly intact. No focal or l ateralizing signs. PSYCH: Appropriate affect. Alert and oriented to person, place and time. CLINICAL LABS: Reviewed. WBC down from 40,000-15,000, leukocytosis. Hemoglobin down to 6.6 up to 8.7 after 1 unit. ASSESSMENT: 1. Perforated duodenal ulcer 2. Sepsis due to perforated duodenal ulcer 3. Acute blood loss anemia PLAN: 1. Continue liquid diet. Cautious advancement pending clinical course for diet. 2. Protonix 40 mg twice daily. 3. Recommend adjustment to high-protein diet of 60 g daily for global care. Objective - Vital Signs Vital signs: Vital Signs Temp 97.6 F 04/20/24 13:31 Pulse 71 04/20/24 13:31 Resp 18 04/20/24 13:31 BP 127/66 04/20/24 13:31 Pulse Ox 94 L 04/20/24 13:31 FiO2 70 04/18/24 14:00 Intake & Output 07/01/0804/20/24 04/20/24 18:59 06:59 18:59 Intake Total 1655 1047 310 Output Total 1540 2210 100 Balance 115 -1163 210 Weight 62.5 kg Intake: IV 1555 0.9 NS 110 Anidulafungin 200 mg In 200 Sodium Chloride 0.9% 200 ml @ 84 mls/hr IVPB ONCE ONE Rx#:[id number] Mvi, Adult No.4 with Vit 480 K 10 ml Trace (Conc-1Ml/ Dose) 1 ml Sodium Acetate 30 meq Potassium Chloride 40 meq Calcium Gluconate 1 gm Magnesium Sulfate gm 1 gm In Amino Acid 5%-D15w 1,000 ml @ 60 mls/hr IV .BY DURATION [facility] Rx#:[id number] Piperacillin-Tazobactam 3 200 .375 gm In Sodium Chloride 0.9% 100 ml @ 25 mls/hr IVPB Q8H [facility] Rx#: [id number] Potassium Chloride 10 meq 200 In Water For Injection 1 100ml.bag @ 100 mls/hr IVPB Q1H [facility] Rx#: [id number] Sodium Acetate 30 meq 240 Potassium Chloride 40 meq Calcium Gluconate 1 gm Magnesium Sulfate gm 1 gm In Amino Acid 5%-D15w 1, 000 ml @ 60 mls/hr IV .BY DURATION [facility] Rx#: [id number] Vancomycin 750 mg In 125 Sodium Chloride 0.9% 250 ml @ 125 mls/hr IVPB ONCE ONE Rx#:[id number] Intake, IV Titration 1047 Amount Sodium Acetate 30 meq 1047 Potassium Chloride 40 meq Calcium Gluconate 1 gm Magnesium Sulfate gm 1 gm In Amino Acid 5%-D15w 1, 000 ml @ 60 mls/hr IV .BY DURATION [facility] Rx#: [id number] Oral 100 Blood Product 310 Rc As-1 Unit 310 [id number] Output: Drainage 40 60 100 Lower Right Abdomen 0 20 Medial Abdomen 40 60 80 Urine 1500 2150 Other: Voiding Method Indwelling Catheter Indwelling Catheter Indwelling Catheter # Bowel Movements 1 ABP, PAP, CO, CI - Last Documented Arterial Blood Pressure 90/59 - Labs CBC & Chem 7: 04/20/24 16:24 04/20/24 04:21 Labs: Abnormal Lab Results - Last 24 Hours (Table) 04/19/24 04/20/24 04/20/24 Range/Units 19:26 00:11 04:21 WBC (3.8-10.6) k/uL RBC (3.80-5.40) m/uL Hgb (11.4-16.0) gm/dL Hct (34.0-46.0) % Neutrophils # (1.3-7.7) k/uL Sodium 135 L (137-145) mmol/L Potassium 3.1 L (3.5-5.1) mmol/L BUN 48 H (7-17) mg/dL Creatinine 1.21 H (0.52-1.04) mg/dL Glucose 185 H (74-99) mg/dL POC Glucose (mg/dL) 203 H 211 H (70-110) mg/dL Calcium 7.5 L (8.4-10.2) mg/dL Phosphorus 2.3 L (2.5-4.5) mg/dL AST 48 H (14-36) U/L ALT 40 H (4-34) U/L Total Protein 4.1 L (6.3-8.2) g/dL Albumin 2.0 L (3.5-5.0) g/dL Stool Occult Blood (Negative) Crossmatch 04/20/24 04/20/24 04/20/24 Range/Units 04:21 05:19 05:46 WBC 13.9 H (3.8-10.6) k/uL RBC 2.27 L (3.80-5.40) m/uL Hgb 6.6 L* (11.4-16.0) gm/dL Hct 21.0 L (34.0-46.0) % Neutrophils # (1.3-7.7) k/uL Sodium (137-145) mmol/L Potassium (3.5-5.1) mmol/L BUN (7-17) mg/dL Creatinine (0.52-1.04) mg/dL Glucose (74-99) mg/dL POC Glucose (mg/dL) 221 H (70-110) mg/dL Calcium (8.4-10.2) mg/dL Phosphorus (2.5-4.5) mg/dL AST (14-36) U/L ALT (4-34) U/L Total Protein (6.3-8.2) g/dL Albumin (3.5-5.0) g/dL Stool Occult Blood (Negative) Crossmatch See Detail 04/20/24 04/20/24 04/20/24 Range/Units 10:01 11:48 16:24 WBC 15.8 H (3.8-10.6) k/uL RBC 2.99 L (3.80-5.40) m/uL Hgb 8.7 L D (11.4-16.0) gm/dL Hct 26.9 L (34.0-46.0) % Neutrophils # 13.2 H (1.3-7.7) k/uL Sodium (137-145) mmol/L Potassium (3.5-5.1) mmol/L BUN (7-17) mg/dL Creatinine (0.52-1.04) mg/dL Glucose (74-99) mg/dL POC Glucose (mg/dL) 193 H (70-110) mg/dL Calcium (8.4-10.2) mg/dL Phosphorus (2.5-4.5) mg/dL AST (14-36) U/L ALT (4-34) U/L Total Protein (6.3-8.2) g/dL Albumin (3.5-5.0) g/dL Stool Occult Blood Positive H (Negative) Crossmatch 04/20/24 Range/Units 16:49 WBC (3.8-10.6) k/uL RBC (3.80-5.40) m/uL Hgb (11.4-16.0) gm/dL Hct (34.0-46.0) % Neutrophils # (1.3-7.7) k/uL Sodium (137-145) mmol/L Potassium (3.5-5.1) mmol/L BUN (7-17) mg/dL Creatinine (0.52-1.04) mg/dL Glucose (74-99) mg/dL POC Glucose (mg/dL) 161 H (70-110) mg/dL Calcium (8.4-10.2) mg/dL Phosphorus (2.5-4.5) mg/dL AST (14-36) U/L ALT (4-34) U/L Total Protein (6.3-8.2) g/dL Albumin (3.5-5.0) g/dL Stool Occult Blood (Negative) Crossmatch Microbiology - Last 24 Hours (Table) 04/18/24 14:41 Anaerobic Culture - Preliminary Pleural Fluid 04/18/24 14:41 Gram Stain - Preliminary Pleural Fluid Body Fluid Culture - Preliminary 04/18/24 14:40 Blood Culture - Preliminary Blood
[2024-04-21 00:15] LABS: Glucose,Whole Blood 192 mg/dL (70-110)
[2024-04-21] MEDS: ONDANSETRON 4 MG/2 ML VIAL IVP PRN (00:19)
[2024-04-21 07:01] LABS: Glucose,Whole Blood 175 mg/dL (70-110)
[2024-04-21 07:45] LABS: ALT 38 U/L (4-34); AST 33 U/L (14-36); African American GFR (CKD) 47 (>60 ml/min/1.73 sqM); Albumin 2.2 g/dL (3.5-5.0); Alkaline Phosphatase 91 U/L (38-126); Anion Gap 5 mmol/L; Blood Urea Nitrogen 45 mg/dL (7-17); Carbon Dioxide 25 mmol/L (22-30); Chloride 105 mmol/L (98-107); Globulin 2.3 g/dL; Glucose 162 mg/dL (74-99); Magnesium 1.9 mg/dL (1.6-2.3); Non-African American GFR(CKD) 41 (>60 ml/min/1.73 sqM); Phosphorus 2.8 mg/dL (2.5-4.5); Sodium 135 mmol/L (137-145); Total Bilirubin 0.5 mg/dL (0.2-1.3); Total Protein 4.5 g/dL (6.3-8.2)
[2024-04-21 07:50] LABS: Vancomycin,Random 8.1 ug/mL
[2024-04-21] MEDS: FUROSEMIDE 40 MG TAB PO SCH (09:12)
--- NOTE | 2024-04-21 10:22 | P.PN ---
Subjective Progress Note Date: 04/21/24 CHIEF COMPLAINT: Perforated duodenal ulcer HISTORY OF PRESENT ILLNESS: The patient is a 88-year-old female admitted for perforated duodenal ulcer. Patient has had 2 exploratory laparotomies with recent Billroth II and Myles-en-Y reconstruction 04/12/2024. She has been tolerating clear liquid diet. She received 1 unit of blood yesterday. She denies any abdominal pain today. She has 2 Ata-Alvarado drains. ROS: No fevers or chills. No new chest pain. No productive sputum , PHYSICAL EXAM: VITAL SIGNS: Reviewed CONSTITUTIONAL: Well developed and in no acute distress. EYES: Conjuctivae without sclera icterus. Extraocular movements grossly intact. HEAD, EARS, NOSE, THROAT: Moist buccal mucosa. Head is atraumatic, normocephalic. She is hard of hearing. No nasal drainage. RESPIRATORY: Non-labored respirations and equal bilateral excursions. CARDIOVASCULAR: Palpable 2+ radial pulses. ABDOMEN: SHRUTHI serous. Nontender. MUSCULOSKELETAL: No gross deformity of the lower extremities noted. No clubbing. No cyanosis. SKIN: Good skin turgor. Well perfused. NEUROLOGIC: Cranial nerves II through XII grossly intact. No focal or lateralizing signs. PSYCH: Appropriate affect. Alert and oriented to person, place and time. CLINICAL LABS: Reviewed. WBC today and hemoglobin not available. ASSESSMENT: 1. Perforated duodenal ulcer 2. Sepsis due to perforated duodenal ulcer 3. Acute blood loss anemia PLAN: 1. Stat CBC ordered due to recent acute blood loss anemia and blood transfusion. 2. Anticipated advancement of diet to full liquid pending results of labs. Objective - Vital Signs Vital signs: Vital Signs Temp 98.1 F 04/21/24 07:38 Pulse 69 04/21/24 07:38 Resp 18 04/21/24 07:38 BP 122/53 04/21/24 01:48 Pulse Ox 93 L 04/21/24 07:38 FiO2 70 04/18/24 14:00 Intake & Output 04/20/24 04/21/24 04/21/24 18:59 06:59 18:59 Intake Total 310 Output Total 100 2074 Balance 210 -2074 Weight 62.5 kg Intake: Blood Product 310 Rc As-1 Unit 310 [id number] Output: Drainage 100 100 Lower Right Abdomen 20 Medial Abdomen 80 100 Urine 1975 Other: Voiding Method Indwelling Catheter Indwelling Catheter ABP, PAP, CO, CI - Last Documented Arterial Blood Pressure 90/59 - Labs CBC & Chem 7: 04/20/24 16:24 04/21/24 06:47 Labs: Abnormal Lab Results - Last 24 Hours (Table) 04/20/24 04/20/24 04/20/24 Range/Units 05:19 10:01 11:48 WBC (3.8-10.6) k/uL RBC (3.80-5.40) m/uL Hgb (11.4-16.0) gm/dL Hct (34.0-46.0) % Neutrophils # (1.3-7.7) k/uL Sodium (137-145) mmol/L BUN (7-17) mg/dL Creatinine (0.52-1.04) mg/dL Glucose (74-99) mg/dL POC Glucose (mg/dL) 193 H (70-110) mg/dL Calcium (8.4-10.2) mg/dL ALT (4-34) U/L Total Protein (6.3-8.2) g/dL Albumin (3.5-5.0) g/dL Stool Occult Blood Positive H (Negative) Crossmatch See Detail 04/20/24 04/20/24 04/21/24 Range/Units 16:24 16:49 00:13 WBC 15.8 H (3.8-10.6) k/uL RBC 2.99 L (3.80-5.40) m/uL Hgb 8.7 L D (11.4-16.0) gm/dL Hct 26.9 L (34.0-46.0) % Neutrophils # 13.2 H (1.3-7.7) k/uL Sodium (137-145) mmol/L BUN (7-17) mg/dL Creatinine (0.52-1.04) mg/dL Glucose (74-99) mg/dL POC Glucose (mg/dL) 161 H 192 H (70-110) mg/dL Calcium (8.4-10.2) mg/dL ALT (4-34) U/L Total Protein (6.3-8.2) g/dL Albumin (3.5-5.0) g/dL Stool Occult Blood (Negative) Crossmatch 04/21/24 04/21/24 Range/Units 06:47 07:00 WBC (3.8-10.6) k/uL RBC (3.80-5.40) m/uL Hgb (11.4-16.0) gm/dL Hct (34.0-46.0) % Neutrophils # (1.3-7.7) k/uL Sodium 135 L (137-145) mmol/L BUN 45 H (7-17) mg/dL Creatinine 1.18 H (0.52-1.04) mg/dL Glucose 162 H (74-99) mg/dL POC Glucose (mg/dL) 175 H (70-110) mg/dL Calcium 8.0 L (8.4-10.2) mg/dL ALT 38 H (4-34) U/L Total Protein 4.5 L (6.3-8.2) g/dL Albumin 2.2 L (3.5-5.0) g/dL Stool Occult Blood (Negative) Crossmatch Microbiology - Last 24 Hours (Table) 04/18/24 14:41 Gram Stain - Preliminary Pleural Fluid Body Fluid Culture - Preliminary 04/18/24 14:40 Blood Culture - Preliminary Blood 04/18/24 14:41 Anaerobic Culture - Preliminary Pleural Fluid
[2024-04-21 11:14] LABS: Basophils % (A) 0 %; Eosinophils # (A) 0.2 k/uL (0-0.7); Eosinophils % (A) 2 %; HCT 25.2 % (34.0-46.0); HGB 8.1 gm/dL (11.4-16.0); Hypochromasia Slight; Lymphocytes # (A) 1.3 k/uL (1.0-4.8); Lymphocytes % (A) 9 %; MCH 29.5 pg (25.0-35.0); MCHC 32.1 g/dL (31.0-37.0); MCV 92.2 fL (80.0-100.0); Monocytes # (A) 0.5 k/uL (0-1.0); Monocytes % (A) 4 %; Neutrophils # (A) 11.8 k/uL (1.3-7.7); Neutrophils % (A) 84 %; Platelet Count 418 k/uL (150-450); RBC 2.73 m/uL (3.80-5.40); RDW 15.1 % (11.5-15.5); WBC 14.1 k/uL (3.8-10.6)
[2024-04-21] MEDS: VANCOMYCIN 1,250 MG in SODIUM CHLORIDE 0.9% 250 ML IVPB SCH (11:52)
[2024-04-21 12:16] LABS: Glucose,Whole Blood 188 mg/dL (70-110)
--- NOTE | 2024-04-21 14:08 | P.PN ---
Subjective Progress Note Date: 04/21/24 This is an 88-year-old female, recent history of fall about 2 weeks ago, sustained bruising to her left ribs. Patient was brought in yesterday to the ER mostly with symptoms of weakness, failure to thrive, poor oral intake, and suspected dehydration. Patient was also complaining of cough and shortness of breath, no fever no chills, no nausea no vomiting. In addition the patient had no bowel movement for the last 4 days. Apparently the patient has been experiencing intermittent episodes of confusion for the last 1 year. Workup in the ER included a CT of the abdomen and pelvis, it showed pneumoperitoneum and free fluid. Patient was felt that she has ruptured viscus, she was seen by surgery and she underwent exploratory laparotomy for her pneumoperitoneum, and she was found to have perforated duodenal ulcer. Patient had modified Lee patch and postoperatively the patient was extubated nonetheless she was admitted to the ICU, and this consult was initiated. I saw the patient in the ICU this morning, she is on 4 L nasal cannula, does not seem to be in any distress. She is already on Zosyn, and I added Diflucan. She is on LR at 125 cc/h. 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 Patient seen examined. Currently sitting upright in the chair. States she feels much better. Had a bowel movement this morning. Denies any nausea or vomiting On today's evaluation of 04/17/2024, the patient is being seen for a follow-up. The patient is recovering from her abdominal surgery. The patient undergone exploratory laparotomy and repair of a perforated duodenal ulcer and she is postop day #8 subsequent the patient required a bit to gastrectomy and the patient is this morning, the patient has awake and alert and she is currently on med oxygen. She is in normal sinus rhythm. She is on TPN which is running at a rate of 40 cc an hour. She remains on IV Zosyn. She is using the incentive spirometer. The patient has 2 SHRUTHI drains. The medial drain has drained approximately 180 cc of serous material and the right lower abdominal drain has put out approximately 10 cc. She has had paroxysmal atrial fibrillation. She remains on amiodarone running at 0.5 mg/min. The white cell count is at 17 with a hemoglobin 9.1 and a platelet count of 431. BUN is 28 with a creatinine of 1. Electrolytes are normal limits. LFTs are normal. Blood sugar is at 183. The patient remains on empiric antibiotic coverage with IV Zosyn. She is being given oral diet today. Should be able also to take her oral medication. Surgical abdominal wound scar is dry clean and intact. He is alert and awake and communicating. 04/18/2024, the patient is on BiPAP. The patient decompensated overnight and became hypoxic. Chest x-ray was done and the patient was found to have large bilateral pleural effusion the patient was given Lasix. Noted the patient was on room air oxygen prior to her being transferred to the medical floor. At that point, the patient was placed on a BiPAP. She was started on the Lasix. This morning, she remains on BiPAP at a pressure of over 5 cm of water and FiO2 was brought up to 70%. No chest pain. She is awake and alert and she is producing adequate amount of urine output. The white cell count is currently up to On her blood work 38.9 with a hemoglobin of 9 and a platelet count of 443. BUN is 32 with a creatinine of 1.2 and sodium levels of 136. I repeated her blood work again and her white cell count is up to 40 with a hemoglobin of 8.8. The patient got transferred to the intensive care unit. Immediately, I performed an ultrasound of the chest that showed bilateral pleural effusion and thoracentesis of the right lung was done, pending follow-up chest x-ray and a total of 600 cc of pleural fluid aspirated from the right lung. Hemodynamically stable. No hypotension. Remains on TPN. Remains on IV Zosyn. Remains on Lasix 20 mg IV every 12 hours. Awake and alert and communicating. On today's evaluation of 04/19/2024, the patient seems to be more comfortable compared to yesterday. The patient is currently on 2 L of oxygen by nasal cannula. The patient was at the pulmonary edema and developed bilateral pleural effusions. The patient had a thoracentesis yesterday without any complication. A total of 650 cc of pleural fluid was aspirated from the right lung. A repeat chest x-ray from today showing improvement in the volume status. There is still increased interstitial markings bilaterally and small bilateral pleural effusions in the lung bases bilaterally. The patient remains on IV Lasix. The patient is producing adequate amount of urine output. Nevertheless, the fluid balance over the past 24 hours has been +500 cc. The patient remains on TPN for nutritional support. The patient is receiving TPN at a rate of 60 cc an hour. The patient is also on a combination of Zosyn and Eraxis, and vancomycin.. Oxygenation is improved and the patient is currently off the BiPAP and the patient currently is on 3 L of oxygen by nasal cannula. BUN is 40 with a creat inine of 1.2. Sodium level is 137, white cell count is improved is currently down to 21 with a hemoglobin of 7.5 and a platelet count of 393. No other significant events otherwise and the patient's condition is slightly more stable compared to yesterday. She is awake and alert and communicating. 04/20. Patient seen and examined. Blood work done this morning showed WBC 13.9, hemoglobin 6.6, platelet count 397, sodium 135, potassium 3.1, BUN 40, creatinine 1.21, glucose 185. Patient being transfused unit of packed red blood cell. Patient had dark-colored stool this morning. 04/21. Patient seen and examined. Blood work done this morning showed sodium 135, potassium 4, BUN 44, creatinine 1.18, glucose 162,. Patient was coughing up dark-colored phlegm. Surgery ordered stat CBC. Patient was having blood in the stools REVIEW OF SYSTEMS: CONSTITUTIONAL: No fever, no malaise,. CARDIOVASCULAR: No chest pain, no palpitations, no syncope. PULMONARY: No shortness of breath, no cough, GASTROINTESTINAL: As mentioned above NEUROLOGICAL: No headaches, no weakness, PHYSICAL EXAMINATION: GENERAL: The patient is alert alert, chronically ill looking HEENT: Pupils are round and equally reacting to light. EOMI. No scleral icterus. No conjunctival pallor. Normocephalic, atraumatic. No pharyngeal erythema. No thyromegaly. CARDIOVASCULAR: S1 and S2 present. No murmurs, rubs, or gallops. PULMONARY: Diminished breath sound the bases bilaterally, no wheeze ABDOMEN: Soft, nontender, positive bowel sounds MUSCULOSKELETAL: No joint swelling or deformity. EXTREMITIES: No cyanosis, clubbing, or pedal edema. NEUROLOGICAL: Gross neurological examination did not reveal any focal deficits. SKIN: No rashes. Assessment and plan S/P exploratory laparotomy, repair of perforated duodenal ulcer, and application of a modified Lee patch. status post Billroth II gastrectomy, and Myles-en-Y reconstruction. Upper GI series, showing leak, at the site of the modified Lee patch. acute abdominal sepsis. Acute atrial fibrillation, with rapid ventricular response. Acute dehydration with acute kidney injury. Nonanion gap metabolic acidosis. Leukocytosis, secondary to sepsis. Hypovolemic hyponatremia, Monitor vital signs Monitor CBC Monitor CMP Continue telemetry monitoring Encourage use of incentive spirometer Continue oxygen supplementation Strict I's and O's, daily weights, continue IV Lasix 40 mg every 12 Continue TPN Continue IV vancomycin and Zosyn and Eraxis Continue amiodarone,Not a good anticoagulation candidate currently with concern of continued leak and decrease in Hgb Cardiology following General surgery following, patient is not a good candidate for any further surgical procedures per surgery Critical care following Labs and medication were reviewed.. Continue same treatment. Continue with symptomatic treatment. Resume home medication. Monitor labs and vitals. DVT and GI prophylaxis. Further recommendations as per clinical course of the patient Dictation was produced using [employer] dictation software. please excuse any grammatical, word or spelling errors. Objective - Vital Signs Vital signs: Vital Signs Temp 98.1 F 04/21/24 07:38 Pulse 69 04/21/24 07:38 Resp 18 04/21/24 07:38 BP 122/53 04/21/24 01:48 Pulse Ox 93 L 04/21/24 07:38 FiO2 70 04/18/24 14:00 Intake & Output 04/20/24 04/21/24 04/21/24 18:59 06:59 18:59 Intake Total 310 Output Total 100 2075 Balance 210 -2075 Weight 62.5 kg Intake: Blood Product 310 Rc As-1 Unit 310 [id number] Output: Drainage 100 100 Lower Right Abdomen 20 Medial Abdomen 80 100 Urine 1975 Other: Voiding Method Indwelling Catheter Indwelling Catheter ABP, PAP, CO, CI - Last Documented Arterial Blood Pressure 90/59 - Labs CBC & Chem 7: 04/21/24 06:47 04/21/24 06:47 Labs: Abnormal Lab Results - Last 24 Hours (Table) 07/02/0804/20/24 04/20/24 Range/Units 05:19 10:01 11:48 WBC (3.8-10.6) k/uL RBC (3.80-5.40) m/uL Hgb (11.4-16.0) gm/dL Hct (34.0-46.0) % Neutrophils # (1.3-7.7) k/uL Sodium (137-145) mmol/L BUN (7-17) mg/dL Creatinine (0.52-1.04) mg/dL Glucose (74-99) mg/dL POC Glucose (mg/dL) 193 H (70-110) mg/dL Calcium (8.4-10.2) mg/dL ALT (4-34) U/L Total Protein (6.3-8.2) g/dL Albumin (3.5-5.0) g/dL Stool Occult Blood Positive H (Negative) Crossmatch See Detail 04/20/24 04/20/24 04/21/24 Range/Units 16:24 16:49 00:13 WBC 15.8 H (3.8-10.6) k/uL RBC 2.99 L (3.80-5.40) m/uL Hgb 8.7 L D (11.4-16.0) gm/dL Hct 26.9 L (34.0-46.0) % Neutrophils # 13.2 H (1.3-7.7) k/uL Sodium (137-145) mmol/L BUN (7-17) mg/dL Creatinine (0.52-1.04) mg/dL Glucose (74-99) mg/dL POC Glucose (mg/dL) 161 H 192 H (70-110) mg/dL Calcium (8.4-10.2) mg/dL ALT (4-34) U/L Total Protein (6.3-8.2) g/dL Albumin (3.5-5.0) g/dL Stool Occult Blood (Negative) Crossmatch 04/21/24 04/21/24 Range/Units 06:47 07:00 WBC (3.8-10.6) k/uL RBC (3.80-5.40) m/uL Hgb (11.4-16.0) gm/dL Hct (34.0-46.0) % Neutrophils # (1.3-7.7) k/uL Sodium 135 L (137-145) mmol/L BUN 45 H (7-17) mg/dL Creatinine 1.18 H (0.52-1.04) mg/dL Glucose 162 H (74-99) mg/dL POC Glucose (mg/dL) 175 H (70-110) mg/dL Calcium 8.0 L (8.4-10.2) mg/dL ALT 38 H (4-34) U/L Total Protein 4.5 L (6.3-8.2) g/dL Albumin 2.2 L (3.5-5.0) g/dL Stool Occult Blood (Negative) Crossmatch Microbiology - Last 24 Hours (Table) 04/18/24 14:41 Gram Stain - Preliminary Pleural Fluid Body Fluid Culture - Preliminary 04/18/24 14:40 Blood Culture - Preliminary Blood 04/18/24 14:41 Anaerobic Culture - Preliminary Pleural Fluid
--- NOTE | 2024-04-21 14:36 | P.PN ---
Subjective Progress Note Date: 04/21/24 Patient is seen in follow-up for acute kidney injury. Receiving TPN. Currently on nasal cannula. Feeling better overall. On IV Lasix. Nonoliguric. Patient feeling better over all. Vital signs are stable. General: No acute distress. HEENT: Head exam is unremarkable. On nasal cannula. LUNGS: No audible rhonchi or wheezes. HEART: Rate and Rhythm are regular. ABDOMEN: Nontender. SHRUTHI drain noted. EXTREMITITES: Trace edema. Objective - Vital Signs Vital signs: Vital Signs Temp 98.1 F 04/21/24 07:38 Pulse 69 04/21/24 07:38 Resp 18 04/21/24 07:38 BP 122/53 04/21/24 01:48 Pulse Ox 93 L 04/21/24 07:38 FiO2 70 04/18/24 14:00 Intake & Output 04/20/24 04/21/24 04/21/24 18:59 06:59 18:59 Intake Total 310 Output Total 100 2074 Balance 210 -2074 Weight 62.5 kg 62.5 kg Intake: Blood Product 310 Rc As-1 Unit 310 [id number] Output: Drainage 100 100 Lower Right Abdomen 20 Medial Abdomen 80 100 Urine 1975 Other: Voiding Method Indwelling Catheter Indwelling Catheter Indwelling Catheter ABP, PAP, CO, CI - Last Documented Arterial Blood Pressure 90/59 - Labs CBC & Chem 7: 04/21/24 06:47 04/21/24 06:47 Labs: Abnormal Lab Results - Last 24 Hours (Table) 04/20/24 04/20/24 04/21/24 Range/Units 16:24 16:49 00:13 WBC 15.8 H (3.8-10.6) k/uL RBC 2.99 L (3.80-5.40) m/uL Hgb 8.7 L D (11.4-16.0) gm/dL Hct 26.9 L (34.0-46.0) % Neutrophils # 13.2 H (1.3-7.7) k/uL Sodium (137-145) mmol/L BUN (7-17) mg/dL Creatinine (0.52-1.04) mg/dL Glucose (74-99) mg/dL POC Glucose (mg/dL) 161 H 192 H (70-110) mg/dL Calcium (8.4-10.2) mg/dL ALT (4-34) U/L Total Protein (6.3-8.2) g/dL Albumin (3.5-5.0) g/dL 04/21/24 04/21/24 04/21/24 Range/Units 06:47 06:47 07:00 WBC 14.1 H (3.8-10.6) k/uL RBC 2.73 L (3.80-5.40) m/uL Hgb 8.1 L (11.4-16.0) gm/dL Hct 25.2 L (34.0-46.0) % Neutrophils # 11.8 H (1.3-7.7) k/uL Sodium 135 L (137-145) mmol/L BUN 45 H (7-17) mg/dL Creatinine 1.18 H (0.52-1.04) mg/dL Glucose 162 H (74-99) mg/dL POC Glucose (mg/dL) 175 H (70-110) mg/dL Calcium 8.0 L (8.4-10.2) mg/dL ALT 38 H (4-34) U/L Total Protein 4.5 L (6.3-8.2) g/dL Albumin 2.2 L (3.5-5.0) g/dL 04/21/24 Range/Units 12:14 WBC (3.8-10.6) k/uL RBC (3.80-5.40) m/uL Hgb (11.4-16.0) gm/dL Hct (34.0-46.0) % Neutrophils # (1.3-7.7) k/uL Sodium (137-145) mmol/L BUN (7-17) mg/dL Creatinine (0.52-1.04) mg/dL Glucose (74-99) mg/dL POC Glucose (mg/dL) 188 H (70-110) mg/dL Calcium (8.4-10.2) mg/dL ALT (4-34) U/L Total Protein (6.3-8.2) g/dL Albumin (3.5-5.0) g/dL Microbiology - Last 24 Hours (Table) 04/18/24 14:41 Gram Stain - Preliminary Pleural Fluid Body Fluid Culture - Preliminary 04/18/24 14:40 Blood Culture - Preliminary Blood 04/18/24 14:41 Anaerobic Culture - Preliminary Pleural Fluid Assessment and Plan Assessment: 1. Acute kidney injury secondary to hemodynamic ATN. Renal function worse from diuresis. Creatinine stable at 1.21 today. Unknown baseline renal function. UA fairly benign. No hydronephrosis noted on kidney ultrasound. 2. A-fib with RVR status post amiodarone drip. Now on oral amiodarone and Lopressor. 3. Perforated duodenal ulcer status post exploratory laparotomy with modified Lee patch April 09, 2024 with reexploration on April 12, 2024. Surgery following. 4. Metabolic acidosis secondary to acute kidney injury. Stable. 5. Hypophosphatemia from poor intake. Replaced. Improved. 6. Acute hypoxic respiratory failure. 7. Volume overload. Improving with diuresis. 8. Hypokalemia from diuresis. 9. Anemia Plan: Maintain TPN per surgery. Lasix to 40 mg IV twice daily, urine output increased. Planning to transition to PO Lasix tomorrow. Continue to monitor renal function and urine output. Avoid nephrotoxins. Potassium replacement per TPN.
--- NOTE | 2024-04-21 14:53 | P.PN ---
Subjective Progress Note Date: 04/21/24 This is an 88-year-old female, recent history of fall about 2 weeks ago, sustained bruising to her left ribs. Patient was brought in yesterday to the ER mostly with symptoms of weakness, failure to thrive, poor oral intake, and suspected dehydration. Patient was also complaining of cough and shortness of breath, no fever no chills, no nausea no vomiting. In addition the patient had no bowel movement for the last 4 days. Apparently the patient has been experiencing intermittent episodes of confusion for the last 1 year. Workup in the ER included a CT of the abdomen and pelvis, it showed pneumoperitoneum and free fluid. Patient was felt that she has ruptured viscus, she was seen by surgery and she underwent exploratory laparotomy for her pneumoperitoneum, and she was found to have perforated duodenal ulcer. Patient had modified Lee patch and postoperatively the patient was extubated nonetheless she was admitted to the ICU, and this consult was initiated. I saw the patient in the ICU this morning, she is on 4 L nasal cannula, does not seem to be in any distress. She is already on Zosyn, and I added Diflucan. She is on LR at 125 cc/h. Her WBC count is 28.6, electrolytes are normal hemoglobin is 10.7 BUN is 97 creatinine down to 2.45 from 3.27 yesterday. Progress note dated April 10, 2024. 88-year-old female seen yesterday in consultation. She was admitted on April 08, with confusion and weakness. The patient had a repair of a perforated duodenal ulcer on April 09. Today is postop day #1. She is currently seen today in room 261. She is currently on 6 L of oxygen by nasal cannula. She has an NG tube in place. She is getting lactated Ringer's at 125 cc an hour. For atrial fibrillation with a rapid ventricular response, she was started on Cardizem drip at 5 mg an hour, and amiodarone 0.5 mg/min. No new labs today other than a glucose of 154. The labs from yesterday are reviewed. White count was 28.6. Hemoglobin 10.7, platelet count was normal. BUN and creatinine were 97 and 2.45. Chest x-ray suggested bilateral pleural effusions. Progress note dated April 11, 2024. 88-year-old female seen today in room 261. The patient was admitted on April 08, with confusion and weakness. The patient was discovered to have a perforated duodenal ulcer, and had a surgical repair performed on April 09. Today is postop day #2. The patient is currently without distress. She is on room air. NG tube remains in place. She is getting lactated Ringer's at 75 cc an hour. Because of atrial fibrillation and RVR, she continues on amiodarone 0.5 mg/min, and Cardizem at 5 mg an hour. Lab data includes a white count 34.6, hemoglobin 9.1, hematocrit 36.6, and a platelet count 442,000. Sodium 143, potassium 4.1, chlorides 113, CO2 23, BUN 71, creatinine 1.64. Glucose is 134. Albumin is 2.3. Blood cultures are currently negative. No chest x-ray today has been ordered. Progress note dated April 12, 2024. This is an 88-year-old female who is seen in room 261. The patient was admitted back on April 08, with confusion and weakness. She was discovered to have a perforated duodenal ulcer, and had surgical repair performed on April 09. Today is postoperative day #3. The patient is going to have a upper GI study today. She is getting lactated Ringer's at 75 cc an hour, 3 L of oxygen by nasal cannula, Cardizem at 5 mg an hour, and amiodarone at 0.5 mg/min. White count was 37.4, hemoglobin 11.6, hematocrit 38.5, and platelet count was normal. Sodium 145, potassium 3.2, chloride 115, CO2 24, BUN 52, creatinine 1.26. Glucose 123. Calcium 8.2. BUN 2.2. Blood cultures are currently negative. The patient's chest x-ray is stable, with some basilar atelectasis on the right. Upper GI study showed a leak, at the site of patch placement, in the duodenal bulb. Progress note dated April 13, 2024. 88-year-old female seen today in room 261. The patient is postop day #1, status post Billroth II gastrectomy, and Myles-en-Y reconstruction. The patient is currently on the ventilator. Ventilator settings include volume assist-control, rate 16, tidal volume 350, FiO2 40%, PEEP of 5. Blood gases show pO2 128, pCO2 34, pH is 7.43. The blood gases were done on 50% FiO2. The patient is on lactated Ringer's at 75 cc an hour, amiodarone 0.5 mg/min, Cardizem at 5 mg/h, and propofol, is restarted at a low rate. Current labs include a white count 34.8, hemoglobin 9.5, hematocrit 32.2, and a platelet count of 325,000. Sodium 141, potassium 4, chloride 114, CO2 21, BUN 48, creatinine 1.51. Glucose is 133. Calcium is 7. Blood cultures are negative. Chest x-ray shows in addition to endotracheal tube, and central venous line, blunting of the costophrenic angles. Progress note dated April 14, 2024. 88-year-old female seen today in room 261. She is postop day #2, status post Billroth II gastrectomy and Myles-en-Y reconstruction. The patient is on the ventilator. She was maintained on the ventilator overnight. Currently, the patient is on volume assist-control, rate 16, tidal volume 350, FiO2 30%, PEEP of 5. Blood gases show pO2 of 148, pCO2 33, pH is 7.42. Blood gases were done on 40%. The patient continues on amiodarone at 0.5 mg/min, lactated Ringer's at 75 cc an hour, propofol at 35 mcg/kg/min, and TPN at 30 cc an hour, to be increased to 55 cc an hour. Current white count is 25.2, hemoglobin 9.5, hematocrit 35.5, platelet count 362,000. Sodium 142, potassium 3.3, chlorides 112, CO2 25, BUN 50, creatinine 1.83. Albumin level was 1.9. Chest x-ray is largely unchanged. Progress note dated April 15, 2024. The patient is seen again in room 261. The patient was successfully extubated yesterday, April 14. She is currently on room air. She is receiving a saline IV at KVO, and TPN at 40 cc an hour. Current labs include a white count 18.1, hemoglobin 8.9, hematocrit 27.4, and a platelet count of 334,000. Sodium 140, potassium 3.9, chlorides 114, CO2 23, BUN 46, and creatinine 1.36. Glucose is 170. Calcium is 7.2. Phosphorus is 1.9. Magnesium is 2.0. Progress note dated April 16, 2024. The patient is seen today in room 261. She is currently on room air. She continues on amiodarone at 0.5 mg/min. She is getting TPN at 40 cc an hour, and saline at KVO. She does continue on Zosyn. All her cultures are thus far negative. She has no specific complaints today. According to the nurse, she is a bit anxious. Current labs include a sodium 139, potassium 3.9, chlorides 114, CO2 23, BUN 35, and creatinine 1.15. Glucose is 178. Calcium 7.5, phosphorus 2.3, and magnesium is normal. Culture data is negative. Venous Doppler yesterday, shows a superficial venous thrombosis involving the cephalic vein, of the left upper extremity. On today's evaluation of 04/17/2024, the patient is being seen for a follow-up. The patient is recovering from her abdominal surgery. The patient undergone exploratory laparotomy and repair of a perforated duodenal ulcer and she is postop day #8 subsequent the patient required a bit to gastrectomy and the patient is this morning, the patient has awake and alert and she is currently on med oxygen. She is in normal sinus rhythm. She is on TPN which is running at a rate of 40 cc an hour. She remains on IV Zosyn. She is using the incentive spirometer. The patient has 2 SHRUTHI drains. The medial drain has drained approximately 180 cc of serous material and the right lower abdominal drain has put out approximately 10 cc. She has had paroxysmal atrial fibrillation. She remains on amiodarone running at 0.5 mg/min. The white cell count is at 17 with a hemoglobin 9.1 and a platelet count of 431. BUN is 28 with a creatinine of 1. Electrolytes are normal limits. LFTs are normal. Blood sugar is at 183. The patient remains on empiric antibiotic coverage with IV Zosyn. She is being given oral diet today. Should be able also to take her oral medication. Surgical abdominal wound scar is dry clean and intact. He is alert and awake and communicating. 04/18/2024, the patient is on BiPAP. The patient decompensated overnight and became hypoxic. Chest x-ray was done and the patient was found to have large bilateral pleural effusion the patient was given Lasix. Noted the patient was on room air oxygen prior to her being transferred to the medical floor. At that point, the patient was placed on a BiPAP. She was started on the Lasix. This morning, she remains on BiPAP at a pressure of over 5 cm of water and FiO2 was brought up to 70%. No chest pain. She is awake and alert and she is producing adequate amount of urine output. The white cell count is currently up to On her blood work 38.9 with a hemoglobin of 9 and a platelet count of 443. BUN is 32 with a creatinine of 1.2 and sodium levels of 136. I repeated her blood work again and her white cell count is up to 40 with a hemoglobin of 8.8. The patient got transferred to the intensive care unit. Immediately, I performed an ultrasound of the chest that showed bilateral pleural effusion and thoracentesis of the right lung was done, pending follow-up chest x-ray and a total of 600 cc of pleural fluid aspirated from the right lung. Hemodynamically stable. No hypotension. Remains on TPN. Remains on IV Zosyn. Remains on Lasix 20 mg IV every 12 hours. Awake and alert and communicating. On today's evaluation of 04/19/2024, the patient seems to be more comfortable comp ared to yesterday. The patient is currently on 2 L of oxygen by nasal cannula. The patient was at the pulmonary edema and developed bilateral pleural effusions. The patient had a thoracentesis yesterday without any complication. A total of 650 cc of pleural fluid was aspirated from the right lung. A repeat chest x-ray from today showing improvement in the volume status. There is still increased interstitial markings bilaterally and small bilateral pleural effusions in the lung bases bilaterally. The patient remains on IV Lasix. The patient is producing adequate amount of urine output. Nevertheless, the fluid balance over the past 24 hours has been +500 cc. The patient remains on TPN for nutritional support. The patient is receiving TPN at a rate of 60 cc an hour. The patient is also on a combination of Zosyn and Eraxis, and vancomycin.. Oxygenation is improved and the patient is currently off the BiPAP and the patient currently is on 3 L of oxygen by nasal cannula. BUN is 40 with a creatinine of 1.2. Sodium level is 137, white cell count is improved is currently down to 21 with a hemoglobin of 7.5 and a platelet count of 393. No other significant events otherwise and the patient's condition is slightly more stable compared to yesterday. She is awake and alert and communicating. On 04/20/2024, the patient is being seen for a follow-up. The patient is doing well on 3 L of oxygen by nasal cannula. No significant respiratory distress. A follow-up chest x-ray was done today and showed improvement in volume status with small bilateral pleural effusion and some increased interstitial markings bilaterally. Nevertheless, the patient has been diuresed adequately and the patient is currently in negative fluid balance and the patient will be switched to oral Lasix. IV Lasix will be discontinued and the patient has been switched to 40 mg of Lasix on a daily basis. Remains on TPN for nutritional support. She did have a bloody bowel movement, unsure if it is melanotic. This will be monitored as the patient hemoglobin has remeasured at 8.7 on today's evaluation. The white cell count is 15.8. BUN is 48 with a creatinine 1.2 and sodium levels at 135 and a potassium level of 3.1. LFTs are all stable. Antibiotic coverage remains unchanged and the patient remains on a combination of Eraxis and Zosyn. Surgical wound site is dry clean and intact. Renal function remained stable On 04/21/2024, seen the patient for a follow-up. She is currently on room air oxygen. She is having some coffee-ground material in her mouth and I suspect ongoing GI bleed. Note that the patient's hemoglobin had dropped down to 6.6 and the patient does get transfused with packed RBC and a subsequent hemoglobin is up to 8.7 and currently is at 8.1. No acute evidence of any active upper GI bleeding. The patient is awake and alert and communicating. She remains on TPN for nutritional support. Surgical scars are dry clean and intact. Antibiotic coverage with IV Zosyn and Eraxis per IDs recommendations. As mentioned, the patient is postthoracentesis. The patient is currently on diuretics and the patient receiving Lasix 40 mg p.o. daily.. The patient is on room air oxygen. No other significant events overnight. Objective - Vital Signs Vital signs: Vital Signs Temp 98.1 F 04/21/24 07:38 Pulse 69 04/21/24 07:38 Resp 18 04/21/24 07:38 BP 122/53 04/21/24 01:48 Pulse Ox 93 L 04/21/24 07:38 FiO2 70 04/18/24 14:00 Intake & Output 04/20/24 04/21/24 04/21/24 18:59 06:59 18:59 Intake Total 310 Output Total 100 2074 Balance 210 -207 Weight 62.5 kg Intake: Blood Product 310 Rc As-1 Unit 310 [id number] Output: Drainage 100 100 Lower Right Abdomen 20 Medial Abdomen 80 100 Urine 1975 Other: Voiding Method Indwelling Catheter Indwelling Catheter ABP, PAP, CO, CI - Last Documented Arterial Blood Pressure 90/59 - Exam No acute distress, awake and alert, no significant respiratory distress and the patient is currently on room air oxygen HEENT examination is grossly unremarkable. Neck supple. Full range of motion. No adenopathy thyromegaly or neck vein distention. Cardiovascular examination reveals an irregular rhythm and rate. S1-S2 normal. No S3 or S4. No discernible murmur noted. Lungs reveal rhonchi. No wheezes or crackles. Breath sounds are quite diminished in lung bases and there is also dullness to question. The patient has thoracic kyphosis. Abdomen soft, without bowel sounds. Abdominal incision is dressed. The patient has SHRUTHI drains in place, output is minimal at this point in time. No significant abdominal distention. Positive bowel sounds. SHRUTHI drains are in place and serous output is noted. Extremities are intact. No cyanosis clubbing or edema. Skin is without rash or lesion. Neurologic examination is brief but nonfocal. - Labs CBC & Chem 7: 04/21/24 06:47 04/21/24 06:47 Labs: Abnormal Lab Results - Last 24 Hours (Table) 04/20/24 04/20/24 04/20/24 Range/Units 05:19 11:48 16:24 WBC 15.8 H (3.8-10.6) k/uL RBC 2.99 L (3.80-5.40) m/uL Hgb 8.7 L D (11.4-16.0) gm/dL Hct 26.9 L (34.0-46.0) % Neutrophils # 13.2 H (1.3-7.7) k/uL Sodium (137-145) mmol/L BUN (7-17) mg/dL Creatinine (0.52-1.04) mg/dL Glucose (74-99) mg/dL POC Glucose (mg/dL) 193 H (70-110) mg/dL Calcium (8.4-10.2) mg/dL ALT (4-34) U/L Total Protein (6.3-8.2) g/dL Albumin (3.5-5.0) g/dL Crossmatch See Detail 04/20/24 04/21/24 04/21/24 Range/Units 16:49 00:13 06:47 WBC (3.8-10.6) k/uL RBC (3.80-5.40) m/uL Hgb (11.4-16.0) gm/dL Hct (34.0-46.0) % Neutrophils # (1.3-7.7) k/uL Sodium 135 L (137-145) mmol/L BUN 45 H (7-17) mg/dL Creatinine 1.18 H (0.52-1.04) mg/dL Glucose 162 H (74-99) mg/dL POC Glucose (mg/dL) 161 H 192 H (70-110) mg/dL Calcium 8.0 L (8.4-10.2) mg/dL ALT 38 H (4-34) U/L Total Protein 4.5 L (6.3-8.2) g/dL Albumin 2.2 L (3.5-5.0) g/dL Crossmatch 04/21/24 Range/Units 07:00 WBC (3.8-10.6) k/uL RBC (3.80-5.40) m/uL Hgb (11.4-16.0) gm/dL Hct (34.0-46.0) % Neutrophils # (1.3-7.7) k/uL Sodium (137-145) mmol/L BUN (7-17) mg/dL Creatinine (0.52-1.04) mg/dL Glucose (74-99) mg/dL POC Glucose (mg/dL) 175 H (70-110) mg/dL Calcium (8.4-10.2) mg/dL ALT (4-34) U/L Total Protein (6.3-8.2) g/dL Albumin (3.5-5.0) g/dL Crossmatch Microbiology - Last 24 Hours (Table) 04/18/24 14:41 Gram Stain - Preliminary Pleural Fluid Body Fluid Culture - Preliminary 04/18/24 14:40 Blood Culture - Preliminary Blood 04/18/24 14:41 Anaerobic Culture - Preliminary Pleural Fluid Assessment and Plan Plan: Acute hypoxic respiratory failure and the patient is currently on room air oxygen. The patient has been diuresed adequately. The patient also underwent thoracentesis to optimize her respiratory status and volume status. CHF with bilateral pleural effusions and pulm vascular congestion/edema, currently on oral Lasix Acute leukocytosis, rule out septic event. Possibility of anastomotic leak cannot be completely excluded. Currently on IV Zosyn, vancomycin and Eraxis. The white cell count is improving., Acute on chronic anemia consider the possibility of an ongoing GI bleed as the patient is also coughing out some coffee-ground material. The patient was transfused with 2 units of packed RBCs and most recent hemoglobin is at 8.1. Postoperative day # 12, S/P exploratory laparotomy, repair of perforated duod enal ulcer, and application of a modified Lee patch. Upper GI series, showing leak, at the site of the modified Lee patch. Postoperative day # 8, status post Billroth II gastrectomy, and Myles-en-Y reconstruction. The patient remains on TPN for nutritional support. Acute hypoxic respiratory failure, recovered and the patient was extubated on 04/14/2024. The patient was room air oxygen and the patient got transferred to the medical floor to be readmitted back to the ICU the patient was weaned off the BiPAP and the patient is currently on room Acute abdominal sepsis, secondary to above and the patient is currently on IV Zosyn, vancomycin and Eraxis Acute atrial fibrillation, with rapid ventricular response. The cardiac rhythm is back to sinus and the patient oral amiodarone History of splenic hematoma, without rupture. The patient is currently on no anticoagulants Acute dehydration with acute kidney injury. Recovered and the patient renal function is normal Nonanion gap metabolic acidosis, recovered Hypovolemic hyponatremia, recovered. General medical debility. Plan: Watch for any signs of GI bleeding Hemoglobin is stable for now Transfuse 1 unit of packed RBC Switch this patient to oral Lasix Patient is currently on room air oxygen Thoracentesis of the right lung was done without any complications Monitor the output from the SHRUTHI drain and general surgery is on the case Surgical scar is dry clean and intact Send this is a blood cultures x 2 and continue the patient on vancomycin Zosyn and Eraxis Adequate pain control Cardiac rhythm is sinus Will continue to follow.
--- NOTE | 2024-04-21 15:02 | P.PN ---
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 Patient white count is 14.1 creatinine is 1.18 Objective - Vital Signs Vital signs: Vital Signs Temp 98.1 F 04/21/24 07:38 Pulse 69 04/21/24 07:38 Resp 18 04/21/24 07:38 BP 122/53 04/21/24 01:48 Pulse Ox 93 L 04/21/24 07:38 FiO2 70 04/18/24 14:00 Intake & Output 04/20/24 04/21/24 04/21/24 18:59 06:59 18:59 Intake Total 310 Output Total 100 5 Balance 210 -2074 Weight 62.5 kg Intake: Blood Product 310 Rc As-1 Unit 310 [id number] Output: Drainage 100 100 Lower Right Abdomen 20 Medial Abdomen 80 100 Urine 1975 Other: Voiding Method Indwelling Catheter Indwelling Catheter ABP, PAP, CO, CI - Last Documented Arterial Blood Pressure 90/59 - Exam GENERAL DESCRIPTION: An elderly female lying in bed in no distress RESPIRATORY SYSTEM: Unlabored breathing , decreased breath sounds at bases HEART: S1 S2 regular rate and rhythm , ABDOMEN: Soft , mild tenderness EXTREMITIES: No edema feet - Labs CBC & Chem 7: 04/21/24 06:47 04/21/24 06:47 Labs: Abnormal Lab Results - Last 24 Hours (Table) 04/20/24 04/20/24 04/20/24 Range/Units 05:19 10:01 11:48 WBC (3.8-10.6) k/uL RBC (3.80-5.40) m/uL Hgb (11.4-16.0) gm/dL Hct (34.0-46.0) % Neutrophils # (1.3-7.7) k/uL Sodium (137-145) mmol/L BUN (7-17) mg/dL Creatinine (0.52-1.04) mg/dL Glucose (74-99) mg/dL POC Glucose (mg/dL) 193 H (70-110) mg/dL Calcium (8.4-10.2) mg/dL ALT (4-34) U/L Total Protein (6.3-8.2) g/dL Albumin (3.5-5.0) g/dL Stool Occult Blood Positive H (Negative) Crossmatch See Detail 04/20/24 04/20/24 04/21/24 Range/Units 16:24 16:49 00:13 WBC 15.8 H (3.8-10.6) k/uL RBC 2.99 L (3.80-5.40) m/uL Hgb 8.7 L D (11.4-16.0) gm/dL Hct 26.9 L (34.0-46.0) % Neutrophils # 13.2 H (1.3-7.7) k/uL Sodium (137-145) mmol/L BUN (7-17) mg/dL Creatinine (0.52-1.04) mg/dL Glucose (74-99) mg/dL POC Glucose (mg/dL) 161 H 192 H (70-110) mg/dL Calcium (8.4-10.2) mg/dL ALT (4-34) U/L Total Protein (6.3-8.2) g/dL Albumin (3.5-5.0) g/dL Stool Occult Blood (Negative) Crossmatch 04/21/24 04/21/24 Range/Units 06:47 07:00 WBC (3.8-10.6) k/uL RBC (3.80-5.40) m/uL Hgb (11.4-16.0) gm/dL Hct (34.0-46.0) % Neutrophils # (1.3-7.7) k/uL Sodium 135 L (137-145) mmol/L BUN 45 H (7-17) mg/dL Creatinine 1.18 H (0.52-1.04) mg/dL Glucose 162 H (74-99) mg/dL POC Glucose (mg/dL) 175 H (70-110) mg/dL Calcium 8.0 L (8.4-10.2) mg/dL ALT 38 H (4-34) U/L Total Protein 4.5 L (6.3-8.2) g/dL Albumin 2.2 L (3.5-5.0) g/dL Stool Occult Blood (Negative) Crossmatch Microbiology - Last 24 Hours (Table) 04/18/24 14:41 Gram Stain - Preliminary Pleural Fluid Body Fluid Culture - Preliminary 04/18/24 14:40 Blood Culture - Preliminary Blood 04/18/24 14:41 Anaerobic Culture - Preliminary Pleural Fluid Assessment and Plan (1) Peritonitis Current Visit: Yes Status: Acute Code(s): K65.9 - PERITONITIS, UNSPECIFIED SNOMED Code(s): 91039028 (2) Leukocytosis Current Visit: Yes Status: Acute Code(s): D72.829 - ELEVATED WHITE BLOOD CELL COUNT, UNSPECIFIED SNOMED Code(s): 792572351 (3) Perforated duodenal ulcer Current Visit: Yes Status: Acute Code(s): K26.5 - CHRONIC OR UNSPECIFIED DUODENAL ULCER WITH PERFORATION SNOMED Code(s): 68403918 Plan: 1patient presented to hospital with abdominal pain constipation has been diagnosed with the pneumoperitoneum secondary to perforated duodenal ulcer status post laparotomy and repair of the perforated jejunal ulcer we will need to cover for gram-negative and yeast. 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 please excuse any grammatical, word or spelling errors. Time with Patient: Less than 30
[2024-04-21 18:21] LABS: Glucose,Whole Blood 175 mg/dL (70-110)
[2024-04-22 00:47] LABS: Glucose,Whole Blood 197 mg/dL (70-110)
[2024-04-22 06:21] LABS: Glucose,Whole Blood 213 mg/dL (70-110)
[2024-04-22 07:41] LABS: ALT 34 U/L (4-34); AST 34 U/L (14-36); African American GFR (CKD) 45 (>60 ml/min/1.73 sqM); Albumin 2.2 g/dL (3.5-5.0); Alkaline Phosphatase 79 U/L (38-126); Anion Gap 3 mmol/L; Blood Urea Nitrogen 52 mg/dL (7-17); Calcium 7.9 mg/dL (8.4-10.2); Carbon Dioxide 27 mmol/L (22-30); Chloride 105 mmol/L (98-107); Globulin 2.3 g/dL; Glucose 181 mg/dL (74-99); Magnesium 1.8 mg/dL (1.6-2.3); Non-African American GFR(CKD) 39 (>60 ml/min/1.73 sqM); Phosphorus 3.4 mg/dL (2.5-4.5); Potassium 4.3 mmol/L (3.5-5.1); Sodium 135 mmol/L (137-145); Total Bilirubin 0.4 mg/dL (0.2-1.3); Total Protein 4.5 g/dL (6.3-8.2)
[2024-04-22 09:29] LABS: Basophils # (A) 0.08 X 10*3/uL (0.00-0.10); Basophils % (A) 0.5 %; Eosinophils # (A) 0.18 X 10*3/uL (0.04-0.35); Eosinophils % (A) 1.2 %; HCT 22.5 % (37.2-46.3); HGB 7.1 g/dL (12.0-15.0); Lymphocytes # (A) 1.43 X 10*3/uL (0.90-5.00); Lymphocytes % (A) 9.4 %; MCH 29.1 pg (27.0-32.0); MCHC 31.6 g/dL (32.0-37.0); MCV 92.2 FL (80.0-97.0); Mean Platelet Volume 10.7 FL (9.5-12.2); Monocytes # (A) 0.77 X 10*3/uL (0.20-1.00); Monocytes % (A) 5.1 %; NRBC Per 100 WBC 0.02 X 10*3/uL (0.00-0.01); Neutrophils % (A) 81.9 %; Platelet Count 397 X 10*3/uL (140-440); RBC 2.44 X 10*6/uL (4.10-5.20); RDW 14.7 % (11.5-14.5); WBC 15.15 X 10*3/uL (4.50-10.00)
[2024-04-22 11:10] LABS: Glucose,Whole Blood 233 mg/dL (70-110)
[2024-04-22] MEDS: ACETAMINOPHEN IV (For NPO) 1,000 MG in EMPTY BAG 1 BAG IVPB ONE (12:24)
--- NOTE | 2024-04-22 12:48 | P.PN ---
Subjective Progress Note Date: 04/22/24 This is an 88-year-old female, recent history of fall about 2 weeks ago, sustained bruising to her left ribs. Patient was brought in yesterday to the ER mostly with symptoms of weakness, failure to thrive, poor oral intake, and suspected dehydration. Patient was also complaining of cough and shortness of breath, no fever no chills, no nausea no vomiting. In addition the patient had no bowel movement for the last 4 days. Apparently the patient has been experiencing intermittent episodes of confusion for the last 1 year. Workup in the ER included a CT of the abdomen and pelvis, it showed pneumoperitoneum and free fluid. Patient was felt that she has ruptured viscus, she was seen by surgery and she underwent exploratory laparotomy for her pneumoperitoneum, and she was found to have perforated duodenal ulcer. Patient had modified Lee patch and postoperatively the patient was extubated nonetheless she was admitted to the ICU, and this consult was initiated. I saw the patient in the ICU this morning, she is on 4 L nasal cannula, does not seem to be in any distress. She is already on Zosyn, and I added Diflucan. She is on LR at 125 cc/h. Her WBC count is 28.6, electrolytes are normal hemoglobin is 10.7 BUN is 97 creatinine down to 2.45 from 3.27 yesterday. Progress note dated April 10, 2024. 88-year-old female seen yesterday in consultation. She was admitted on April 08, with confusion and weakness. The patient had a repair of a perforated duodenal ulcer on April 09. Today is postop day #1. She is currently seen today in room 261. She is currently on 6 L of oxygen by nasal cannula. She has an NG tube in place. She is getting lactated Ringer's at 125 cc an hour. For atrial fibrillation with a rapid ventricular response, she was started on Cardizem drip at 5 mg an hour, and amiodarone 0.5 mg/min. No new labs today other than a glucose of 154. The labs from yesterday are reviewed. White count was 28.6. Hemoglobin 10.7, platelet count was normal. BUN and creatinine were 97 and 2.45. Chest x-ray suggested bilateral pleural effusions. Progress note dated April 11, 2024. 88-year-old female seen today in room 261. The patient was admitted on April 08, with confusion and weakness. The patient was discovered to have a perforated duodenal ulcer, and had a surgical repair performed on April 09. Today is postop day #2. The patient is currently without distress. She is on room air. NG tube remains in place. She is getting lactated Ringer's at 75 cc an hour. Because of atrial fibrillation and RVR, she continues on amiodarone 0.5 mg/min, and Cardizem at 5 mg an hour. Lab data includes a white count 34.6, hemoglobin 9.1, hematocrit 36.6, and a platelet count 442,000. Sodium 143, potassium 4.1, chlorides 113, CO2 23, BUN 71, creatinine 1.64. Glucose is 134. Albumin is 2.3. Blood cultures are currently negative. No chest x-ray today has been ordered. Progress note dated April 12, 2024. This is an 88-year-old female who is seen in room 261. The patient was admitted back on April 08, with confusion and weakness. She was discovered to have a perforated duodenal ulcer, and had surgical repair performed on April 09. Today is postoperative day #3. The patient is going to have a upper GI study today. She is getting lactated Ringer's at 75 cc an hour, 3 L of oxygen by nasal cannula, Cardizem at 5 mg an hour, and amiodarone at 0.5 mg/min. White count was 37.4, hemoglobin 11.6, hematocrit 38.5, and platelet count was normal. Sodium 145, potassium 3.2, chloride 115, CO2 24, BUN 52, creatinine 1.26. Glucose 123. Calcium 8.2. BUN 2.2. Blood cultures are currently negative. The patient's chest x-ray is stable, with some basilar atelectasis on the right. Upper GI study showed a leak, at the site of patch placement, in the duodenal bulb. Progress note dated April 13, 2024. 88-year-old female seen today in room 261. The patient is postop day #1, status post Billroth II gastrectomy, and Myles-en-Y reconstruction. The patient is currently on the ventilator. Ventilator settings include volume assist-control, rate 16, tidal volume 350, FiO2 40%, PEEP of 5. Blood gases show pO2 128, pCO2 34, pH is 7.43. The blood gases were done on 50% FiO2. The patient is on lactated Ringer's at 75 cc an hour, amiodarone 0.5 mg/min, Cardizem at 5 mg/h, and propofol, is restarted at a low rate. Current labs include a white count 34.8, hemoglobin 9.5, hematocrit 32.2, and a platelet count of 325,000. Sodium 141, potassium 4, chloride 114, CO2 21, BUN 48, creatinine 1.51. Glucose is 133. Calcium is 7. Blood cultures are negative. Chest x-ray shows in addition to endotracheal tube, and central venous line, blunting of the costophrenic angles. Progress note dated April 14, 2024. 88-year-old female seen today in room 261. She is postop day #2, status post Billroth II gastrectomy and Myles-en-Y reconstruction. The patient is on the ventilator. She was maintained on the ventilator overnight. Currently, the patient is on volume assist-control, rate 16, tidal volume 350, FiO2 30%, PEEP of 5. Blood gases show pO2 of 148, pCO2 33, pH is 7.42. Blood gases were done on 40%. The patient continues on amiodarone at 0.5 mg/min, lactated Ringer's at 75 cc an hour, propofol at 35 mcg/kg/min, and TPN at 30 cc an hour, to be increased to 55 cc an hour. Current white count is 25.2, hemoglobin 9.5, hematocrit 35.5, platelet count 362,000. Sodium 142, potassium 3.3, chlorides 112, CO2 25, BUN 50, creatinine 1.83. Albumin level was 1.9. Chest x-ray is largely unchanged. Progress note dated April 15, 2024. The patient is seen again in room 261. The patient was successfully extubated yesterday, April 14. She is currently on room air. She is receiving a saline IV at KVO, and TPN at 40 cc an hour. Current labs include a white count 18.1, hemoglobin 8.9, hematocrit 27.4, and a platelet count of 334,000. Sodium 140, potassium 3.9, chlorides 114, CO2 23, BUN 46, and creatinine 1.36. Glucose is 170. Calcium is 7.2. Phosphorus is 1.9. Magnesium is 2.0. Progress note dated April 16, 2024. The patient is seen today in room 261. She is currently on room air. She continues on amiodarone at 0.5 mg/min. She is getting TPN at 40 cc an hour, and saline at KVO. She does continue on Zosyn. All her cultures are thus far negative. She has no specific complaints today. According to the nurse, she is a bit anxious. Current labs include a sodium 139, potassium 3.9, chlorides 114, CO2 23, BUN 35, and creatinine 1.15. Glucose is 178. Calcium 7.5, phosphorus 2.3, and magnesium is normal. Culture data is negative. Venous Doppler yesterday, shows a superficial venous thrombosis involving the cephalic vein, of the left upper extremity. On today's evaluation of 04/17/2024, the patient is being seen for a follow-up. The patient is recovering from her abdominal surgery. The patient undergone exploratory laparotomy and repair of a perforated duodenal ulcer and she is postop day #8 subsequent the patient required a bit to gastrectomy and the patient is this morning, the patient has awake and alert and she is currently on med oxygen. She is in normal sinus rhythm. She is on TPN which is running at a rate of 40 cc an hour. She remains on IV Zosyn. She is using the incentive spirometer. The patient has 2 SHRUTHI drains. The medial drain has drained approximately 180 cc of serous material and the right lower abdominal drain has put out approximately 10 cc. She has had paroxysmal atrial fibrillation. She remains on amiodarone running at 0.5 mg/min. The white cell count is at 17 with a hemoglobin 9.1 and a platelet count of 431. BUN is 28 with a creatinine of 1. Electrolytes are normal limits. LFTs are normal. Blood sugar is at 183. The patient remains on empiric antibiotic coverage with IV Zosyn. She is being given oral diet today. Should be able also to take her oral medication. Surgical abdominal wound scar is dry clean and intact. He is alert and awake and communicating. 04/18/2024, the patient is on BiPAP. The patient decompensated overnight and became hypoxic. Chest x-ray was done and the patient was found to have large bilateral pleural effusion the patient was given Lasix. Noted the patient was on room air oxygen prior to her being transferred to the medical floor. At that point, the patient was placed on a BiPAP. She was started on the Lasix. This morning, she remains on BiPAP at a pressure of over 5 cm of water and FiO2 was brought up to 70%. No chest pain. She is awake and alert and she is producing adequate amount of urine output. The white cell count is currently up to On her blood work 38.9 with a hemoglobin of 9 and a platelet count of 443. BUN is 32 with a creatinine of 1.2 and sodium levels of 136. I repeated her blood work again and her white cell count is up to 40 with a hemoglobin of 8.8. The patient got transferred to the intensive care unit. Immediately, I performed an ultrasound of the chest that showed bilateral pleural effusion and thoracentesis of the right lung was done, pending follow-up chest x-ray and a total of 600 cc of pleural fluid aspirated from the right lung. Hemodynamically stable. No hypotension. Remains on TPN. Remains on IV Zosyn. Remains on Lasix 20 mg IV every 12 hours. Awake and alert and communicating. On today's evaluation of 04/19/2024, the patient seems to be more comfortable comp ared to yesterday. The patient is currently on 2 L of oxygen by nasal cannula. The patient was at the pulmonary edema and developed bilateral pleural effusions. The patient had a thoracentesis yesterday without any complication. A total of 650 cc of pleural fluid was aspirated from the right lung. A repeat chest x-ray from today showing improvement in the volume status. There is still increased interstitial markings bilaterally and small bilateral pleural effusions in the lung bases bilaterally. The patient remains on IV Lasix. The patient is producing adequate amount of urine output. Nevertheless, the fluid balance over the past 24 hours has been +500 cc. The patient remains on TPN for nutritional support. The patient is receiving TPN at a rate of 60 cc an hour. The patient is also on a combination of Zosyn and Eraxis, and vancomycin.. Oxygenation is improved and the patient is currently off the BiPAP and the patient currently is on 3 L of oxygen by nasal cannula. BUN is 40 with a creatinine of 1.2. Sodium level is 137, white cell count is improved is currently down to 21 with a hemoglobin of 7.5 and a platelet count of 393. No other significant events otherwise and the patient's condition is slightly more stable compared to yesterday. She is awake and alert and communicating. On 04/20/2024, the patient is being seen for a follow-up. The patient is doing well on 3 L of oxygen by nasal cannula. No significant respiratory distress. A follow-up chest x-ray was done today and showed improvement in volume status with small bilateral pleural effusion and some increased interstitial markings bilaterally. Nevertheless, the patient has been diuresed adequately and the patient is currently in negative fluid balance and the patient will be switched to oral Lasix. IV Lasix will be discontinued and the patient has been switched to 40 mg of Lasix on a daily basis. Remains on TPN for nutritional support. She did have a bloody bowel movement, unsure if it is melanotic. This will be monitored as the patient hemoglobin has remeasured at 8.7 on today's evaluation. The white cell count is 15.8. BUN is 48 with a creatinine 1.2 and sodium levels at 135 and a potassium level of 3.1. LFTs are all stable. Antibiotic coverage remains unchanged and the patient remains on a combination of Eraxis and Zosyn. Surgical wound site is dry clean and intact. Renal function remained stable On 04/21/2024, seen the patient for a follow-up. She is currently on room air oxygen. She is having some coffee-ground material in her mouth and I suspect ongoing GI bleed. Note that the patient's hemoglobin had dropped down to 6.6 and the patient does get transfused with packed RBC and a subsequent hemoglobin is up to 8.7 and currently is at 8.1. No acute evidence of any active upper GI bleeding. The patient is awake and alert and communicating. She remains on TPN for nutritional support. Surgical scars are dry clean and intact. Antibiotic coverage with IV Zosyn and Eraxis per IDs recommendations. As mentioned, the patient is postthoracentesis. The patient is currently on diuretics and the patient receiving Lasix 40 mg p.o. daily.. The patient is on room air oxygen. No other significant events overnight. 04/22/2024, the patient is suspected to have some ongoing low-grade GI bleed. She is still having some black stools and coughing out some coffee-ground material. Hemoglobin is at 7.1. Noted that hemoglobin has dropped slightly compared to yesterday is down from 8.1. Respiratory status is stable. She is on 2 L of O2 nasal cannula. Pulse ox 96%. Platelet count is at 397. Remains appropriate for oxygen support. Creatinine is stable at 1.2. BUN is 52 with a sodium of 135. No other significant events overnight. Remains alert and awake and communicating. No confusion. No altered mentation. Objective - Vital Signs Vital signs: Vital Signs Temp 98.0 F 04/22/24 07:41 Pulse 76 04/22/24 08:32 Resp 17 04/22/24 07:41 BP 108/63 04/22/24 07:41 Pulse Ox 96 04/22/24 08:26 FiO2 70 04/18/24 14:00 Intake & Output 04/21/24 04/22/24 04/22/24 18:59 06:59 18:59 Intake Total 1055 Output Total 1600 440 Balance -545 -440 Weight 62.5 kg 60.5 kg Intake: Intake, IV Titration 1055 Amount Sodium Acetate 40 meq 1055 Potassium Chloride 40 meq Calcium Gluconate 1 gm Magnesium Sulfate gm 1 gm Potassium Phosphate 9 mmol In Amino Acid 5%- D15w 1,000 ml @ 60 mls/hr IV .BY DURATION [facility] Rx#: [id number] Output: Drainage 140 Lower Left Abdomen 130 Medial Abdomen 10 Urine 1600 300 Other: Voiding Method Indwelling Catheter Indwelling Catheter # Bowel Movements 1 1 ABP, PAP, CO, CI - Last Documented Arterial Blood Pressure 90/59 - Exam No acute distress, awake and alert, no significant respiratory distress and the patient is currently on room air oxygen HEENT examination is grossly unremarkable. Neck supple. Full range of motion. No adenopathy thyromegaly or neck vein distention. Cardiovascular examination reveals an irregular rhythm and rate. S1-S2 normal. No S3 or S4. No discernible murmur noted. Lungs reveal rhonchi. No wheezes or crackles. Breath sounds are quite diminished in lung bases and there is also dullness to question. The patient has thoracic kyphosis. Abdomen soft, without bowel sounds. Abdominal incision is dressed. The patient has SHRUTHI drains in place, output is minimal at this point in time. No significant abdominal distention. Positive bowel sounds. SHRUTHI drains are in place and serous output is noted. Extremities are intact. No cyanosis clubbing or edema. Skin is without rash or lesion. Neurologic examination is brief but nonfocal. - Labs CBC & Chem 7: 04/22/24 06:12 04/22/24 06:12 Labs: Abnormal Lab Results - Last 24 Hours (Table) 04/21/24 04/21/24 04/21/24 Range/Units 06:47 12:14 18:20 WBC 14.1 H (3.8-10.6) k/uL RBC 2.73 L (3.80-5.40) m/uL Hgb 8.1 L (11.4-16.0) gm/dL Hct 25.2 L (34.0-46.0) % MCHC (32.0-37.0) g/dL RDW (11.5-14.5) % Immature Gran # (0.00-0.04) X 10*3/uL Neutrophils # 11.8 H (1.3-7.7) k/uL NRBC/100 WBC Diff (0.00-0.01) X 10*3/uL Sodium (137-145) mmol/L BUN (7-17) mg/dL Creatinine (0.52-1.04) mg/dL Glucose (74-99) mg/dL POC Glucose (mg/dL) 188 H 175 H (70-110) mg/dL Calcium (8.4-10.2) mg/dL Total Protein (6.3-8.2) g/dL Albumin (3.5-5.0) g/dL 04/22/24 04/22/24 04/22/24 Range/Units 00:45 06:12 06:12 WBC 15.15 H (3.8-10.6) k/uL RBC 2.44 L (3.80-5.40) m/uL Hgb 7.1 L (11.4-16.0) gm/dL Hct 22.5 L (34.0-46.0) % MCHC 31.6 L (32.0-37.0) g/dL RDW 14.7 H (11.5-14.5) % Immature Gran # 0.29 H (0.00-0.04) X 10*3/uL Neutrophils # 12.40 H (1.3-7.7) k/uL NRBC/100 WBC Diff 0.02 H (0.00-0.01) X 10*3/uL Sodium 135 L (137-145) mmol/L BUN 52 H (7-17) mg/dL Creatinine 1.22 H (0.52-1.04) mg/dL Glucose 181 H (74-99) mg/dL POC Glucose (mg/dL) 197 H (70-110) mg/dL Calcium 7.9 L (8.4-10.2) mg/dL Total Protein 4.5 L (6.3-8.2) g/dL Albumin 2.2 L (3.5-5.0) g/dL 04/22/24 Range/Units 06:19 WBC (3.8-10.6) k/uL RBC (3.80-5.40) m/uL Hgb (11.4-16.0) gm/dL Hct (34.0-46.0) % MCHC (32.0-37.0) g/dL RDW (11.5-14.5) % Immature Gran # (0.00-0.04) X 10*3/uL Neutrophils # (1.3-7.7) k/uL NRBC/100 WBC Diff (0.00-0.01) X 10*3/uL Sodium (137-145) mmol/L BUN (7-17) mg/dL Creatinine (0.52-1.04) mg/dL Glucose (74-99) mg/dL POC Glucose (mg/dL) 213 H (70-110) mg/dL Calcium (8.4-10.2) mg/dL Total Protein (6.3-8.2) g/dL Albumin (3.5-5.0) g/dL Microbiology - Last 24 Hours (Table) 04/18/24 14:41 Anaerobic Culture - Final Pleural Fluid 04/18/24 14:41 Gram Stain - Final Pleural Fluid Body Fluid Culture - Final 04/18/24 14:40 Blood Culture - Preliminary Blood Assessment and Plan Plan: Acute hypoxic respiratory failure and the patient is currently on room air oxygen. The patient has been diuresed adequately. The patient also underwent thoracentesis to optimize her respiratory status and volume status. Patient is currently on 2 L O2 nasal cannula CHF with bilateral pleural effusions and pulm vascular congestion/edema, currently on oral Lasix Acute leukocytosis, rule out septic event. Possibility of anastomotic leak cannot be completely excluded. Currently on IV Zosyn, vancomycin and Eraxis. The white cell count is at 15 Acute on chronic anemia consider the possibility of an ongoing GI bleed as the patient is also coughing out some coffee-ground material. The patient was transfused with 2 units of packed RBCs and most recent hemoglobin is at 8.1 on 04/21/2024. Hemoglobin from 04/22/2040 down to 7.1, suspect ongoing low-grade GI bleed Postoperative day # 13, S/P exploratory laparotomy, repair of perforated duodenal ulcer, and application of a modified Lee patch. Upper GI series, showing leak, at the site of the modified Lee patch. Postoperative day # 9 status post Billroth II gastrectomy, and Myles-en-Y reconstruction. The patient remains on TPN for nutritional support. Acute hypoxic respiratory failure, recovered and the patient was extubated on 04/14/2024. The patient was room air oxygen and the patient got transferred to the medical floor to be readmitted back to the ICU the patient was weaned off the BiPAP and the patient is currently is on oxygen by nasal cannula Acute abdominal sepsis, secondary to above and the patient is currently on IV Zosyn, vancomycin and Eraxis Acute atrial fibrillation, with rapid ventricular response. The cardiac rhythm is back to sinus and the patient oral amiodarone History of splenic hematoma, without rupture. The patient is currently on no anticoagulants Acute dehydration with acute kidney injury. Recovered and the patient renal function is normal Nonanion gap metabolic acidosis, recovered Hypovolemic hyponatremia, recovered. General medical debility. Plan: Watch for any signs of GI bleeding, there is concern for an ongoing GI bleed. The patient has been kept N.p.o., still on TPN for nutrition support. Patient is currently on 2 L of oxygen nasal cannula Thoracentesis of the right lung was done without any complications Monitor the output from the SHRUTHI drain and general surgery is on the case Surgical scar is dry clean and intact Blood cultures are negative and continue the patient on vancomycin Zosyn and Eraxis Adequate pain control Cardiac rhythm is sinus Will continue to follow.
--- NOTE | 2024-04-22 12:57 | P.PN ---
Subjective Patient is seen for follow-up for acute kidney injury. She has been transferred out of the ICU. Serum creatinine staying at about 1.1-1.2 mg/dL. maintained on oral Lasix. Receiving TPN. Objective - Vital Signs Vital signs: Vital Signs Temp 98.0 F 04/22/24 07:41 Pulse 76 04/22/24 11:49 Resp 17 04/22/24 07:41 BP 108/63 04/22/24 07:41 Pulse Ox 96 04/22/24 08:26 FiO2 70 04/18/24 14:00 Intake & Output 04/21/24 04/22/24 04/22/24 18:59 06:59 18:59 Intake Total 1055 Output Total 1600 440 Balance -545 -440 Weight 62.5 kg 60.5 kg Intake: Intake, IV Titration 1055 Amount Sodium Acetate 40 meq 1055 Potassium Chloride 40 meq Calcium Gluconate 1 gm Magnesium Sulfate gm 1 gm Potassium Phosphate 9 mmol In Amino Acid 5%- D15w 1,000 ml @ 60 mls/hr IV .BY DURATION [facility] Rx#: [id number] Output: Drainage 140 Lower Left Abdomen 130 Medial Abdomen 10 Urine 1600 300 Other: Voiding Method Indwelling Catheter Indwelling Catheter # Bowel Movements 1 1 ABP, PAP, CO, CI - Last Documented Arterial Blood Pressure 90/59 - Exam patient is awake, comfortable, in no acute distress. Examination of the heart S1 and S2 Examination of the lungs decreased breath sounds at the bases Abdomen is soft Examination lower extremity shows trace edema - Labs CBC & Chem 7: 04/22/24 06:12 04/22/24 06:12 Labs: Abnormal Lab Results - Last 24 Hours (Table) 04/21/24 04/22/24 04/22/24 Range/Units 18:20 00:45 06:12 WBC (4.50-10.00) X 10*3/uL RBC (4.10-5.20) X 10*6/uL Hgb (12.0-15.0) g/dL Hct (37.2-46.3) % MCHC (32.0-37.0) g/dL RDW (11.5-14.5) % Immature Gran # (0.00-0.04) X 10*3/uL Neutrophils # (1.80-7.70) X 10*3/uL NRBC/100 WBC Diff (0.00-0.01) X 10*3/uL Sodium 135 L (137-145) mmol/L BUN 52 H (7-17) mg/dL Creatinine 1.22 H (0.52-1.04) mg/dL Glucose 181 H (74-99) mg/dL POC Glucose (mg/dL) 175 H 197 H (70-110) mg/dL Calcium 7.9 L (8.4-10.2) mg/dL Total Protein 4.5 L (6.3-8.2) g/dL Albumin 2.2 L (3.5-5.0) g/dL 04/22/24 04/22/24 04/22/24 Range/Units 06:12 06:19 11:09 WBC 15.15 H (4.50-10.00) X 10*3/uL RBC 2.44 L (4.10-5.20) X 10*6/uL Hgb 7.1 L (12.0-15.0) g/dL Hct 22.5 L (37.2-46.3) % MCHC 31.6 L (32.0-37.0) g/dL RDW 14.7 H (11.5-14.5) % Immature Gran # 0.29 H (0.00-0.04) X 10*3/uL Neutrophils # 12.40 H (1.80-7.70) X 10*3/uL NRBC/100 WBC Diff 0.02 H (0.00-0.01) X 10*3/uL Sodium (137-145) mmol/L BUN (7-17) mg/dL Creatinine (0.52-1.04) mg/dL Glucose (74-99) mg/dL POC Glucose (mg/dL) 213 H 233 H (70-110) mg/dL Calcium (8.4-10.2) mg/dL Total Protein (6.3-8.2) g/dL Albumin (3.5-5.0) g/dL Microbiology - Last 24 Hours (Table) 04/18/24 14:41 Anaerobic Culture - Final Pleural Fluid 04/18/24 14:41 Gram Stain - Final Pleural Fluid Body Fluid Culture - Final 04/18/24 14:40 Blood Culture - Preliminary Blood Assessment and Plan Assessment: 1. Acute kidney injury, ATN currently nonoliguric. UA is quite benign. No evidence of obstruction on CT of the abdomen. Walters catheter has been obstructed previously. This has been flushed. 2. Non-gap metabolic acidosis secondary to acute kidney injury. 3. Perforated duodenal ulcer status post explorative laparotomy with tato patch on 04/09/2024. Patient had re exploration for leak around the Tato patch on 04/12/2024 with Myles-en-Y reconstruction and Billroth II gastrectomy 4. Status post fall with rib fractures 5. A. fib with RVR maintained on amiodarone Plan: continue with TPN as per surgery Continue Lasix, it has been switched to oral Repeat labs in a.m.
--- NOTE | 2024-04-22 14:32 | P.PN ---
Subjective Progress Note Date: 04/22/24 This is an 88-year-old female, recent history of fall about 2 weeks ago, sustained bruising to her left ribs. Patient was brought in yesterday to the ER mostly with symptoms of weakness, failure to thrive, poor oral intake, and suspected dehydration. Patient was also complaining of cough and shortness of breath, no fever no chills, no nausea no vomiting. In addition the patient had no bowel movement for the last 4 days. Apparently the patient has been experiencing intermittent episodes of confusion for the last 1 year. Workup in the ER included a CT of the abdomen and pelvis, it showed pneumoperitoneum and free fluid. Patient was felt that she has ruptured viscus, she was seen by surgery and she underwent exploratory laparotomy for her pneumoperitoneum, and she was found to have perforated duodenal ulcer. Patient had modified Lee patch and postoperatively the patient was extubated nonetheless she was admitted to the ICU, and this consult was initiated. I saw the patient in the ICU this morning, she is on 4 L nasal cannula, does not seem to be in any distress. She is already on Zosyn, and I added Diflucan. She is on LR at 125 cc/h. 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 Patient seen examined. Currently sitting upright in the chair. States she feels much better. Had a bowel movement this morning. Denies any nausea or vomiting On today's evaluation of 04/17/2024, the patient is being seen for a follow-up. The patient is recovering from her abdominal surgery. The patient undergone exploratory laparotomy and repair of a perforated duodenal ulcer and she is postop day #8 subsequent the patient required a bit to gastrectomy and the patient is this morning, the patient has awake and alert and she is currently on med oxygen. She is in normal sinus rhythm. She is on TPN which is running at a rate of 40 cc an hour. She remains on IV Zosyn. She is using the incentive spirometer. The patient has 2 SHRUTHI drains. The medial drain has drained approximately 180 cc of serous material and the right lower abdominal drain has put out approximately 10 cc. She has had paroxysmal atrial fibrillation. She remains on amiodarone running at 0.5 mg/min. The white cell count is at 17 with a hemoglobin 9.1 and a platelet count of 431. BUN is 28 with a creatinine of 1. Electrolytes are normal limits. LFTs are normal. Blood sugar is at 183. The patient remains on empiric antibiotic coverage with IV Zosyn. She is being given oral diet today. Should be able also to take her oral medication. Surgical abdominal wound scar is dry clean and intact. He is alert and awake and communicating. 04/18/2024, the patient is on BiPAP. The patient decompensated overnight and became hypoxic. Chest x-ray was done and the patient was found to have large bilateral pleural effusion the patient was given Lasix. Noted the patient was on room air oxygen prior to her being transferred to the medical floor. At that point, the patient was placed on a BiPAP. She was started on the Lasix. This morning, she remains on BiPAP at a pressure of over 5 cm of water and FiO2 was brought up to 70%. No chest pain. She is awake and alert and she is producing adequate amount of urine output. The white cell count is currently up to On her blood work 38.9 with a hemoglobin of 9 and a platelet count of 443. BUN is 32 with a creatinine of 1.2 and sodium levels of 136. I repeated her blood work again and her white cell count is up to 40 with a hemoglobin of 8.8. The patient got transferred to the intensive care unit. Immediately, I performed an ultrasound of the chest that showed bilateral pleural effusion and thoracentesis of the right lung was done, pending follow-up chest x-ray and a total of 600 cc of pleural fluid aspirated from the right lung. Hemodynamically stable. No hypotension. Remains on TPN. Remains on IV Zosyn. Remains on Lasix 20 mg IV every 12 hours. Awake and alert and communicating. On today's evaluation of 04/19/2024, the patient seems to be more comfortable compared to yesterday. The patient is currently on 2 L of oxygen by nasal cannula. The patient was at the pulmonary edema and developed bilateral pleural effusions. The patient had a thoracentesis yesterday without any complication. A total of 650 cc of pleural fluid was aspirated from the right lung. A repeat chest x-ray from today showing improvement in the volume status. There is still increased interstitial markings bilaterally and small bilateral pleural effusions in the lung bases bilaterally. The patient remains on IV Lasix. The patient is producing adequate amount of urine output. Nevertheless, the fluid balance over the past 24 hours has been +500 cc. The patient remains on TPN for nutritional support. The patient is receiving TPN at a rate of 60 cc an hour. The patient is also on a combination of Zosyn and Eraxis, and vancomycin.. Oxygenation is improved and the patient is currently off the BiPAP and the patient currently is on 3 L of oxygen by nasal cannula. BUN is 40 with a creat inine of 1.2. Sodium level is 137, white cell count is improved is currently down to 21 with a hemoglobin of 7.5 and a platelet count of 393. No other significant events otherwise and the patient's condition is slightly more stable compared to yesterday. She is awake and alert and communicating. 04/20. Patient seen and examined. Blood work done this morning showed WBC 13.9, hemoglobin 6.6, platelet count 397, sodium 135, potassium 3.1, BUN 40, creatinine 1.21, glucose 185. Patient being transfused unit of packed red blood cell. Patient had dark-colored stool this morning. 04/21. Patient seen and examined. Blood work done this morning showed sodium 135, potassium 4, BUN 44, creatinine 1.18, glucose 162,. Patient was coughing up dark-colored phlegm. Surgery ordered stat CBC. Patient was having blood in the stools 04/22. Patient seen and examined. Patient had dark stool this morning, coughing up some dark material as well. General surgery aware. Repeat CBC ordered REVIEW OF SYSTEMS: CONSTITUTIONAL: No fever, no malaise,. CARDIOVASCULAR: No chest pain, no palpitations, no syncope. PULMONARY: No shortness of breath, no cough, GASTROINTESTINAL: As mentioned above NEUROLOGICAL: No headaches, no weakness, PHYSICAL EXAMINATION: GENERAL: The patient is alert alert, chronically ill looking HEENT: Pupils are round and equally reacting to light. EOMI. No scleral icterus. No conjunctival pallor. Normocephalic, atraumatic. No pharyngeal erythema. No thyromegaly. CARDIOVASCULAR: S1 and S2 present. No murmurs, rubs, or gallops. PULMONARY: Diminished breath sound the bases bilaterally, no wheeze ABDOMEN: Soft, nontender, positive bowel sounds MUSCULOSKELETAL: No joint swelling or deformity. EXTREMITIES: No cyanosis, clubbing, or pedal edema. NEUROLOGICAL: Gross neurological examination did not reveal any focal deficits. SKIN: No rashes. Assessment and plan S/P exploratory laparotomy, repair of perforated duodenal ulcer, and application of a modified Lee patch. status post Billroth II gastrectomy, and Myles-en-Y reconstruction. Upper GI series, showing leak, at the site of the modified Lee patch. acute abdominal sepsis. Acute atrial fibrillation, with rapid ventricular response. Acute dehydration with acute kidney injury. Nonanion gap metabolic acidosis. Leukocytosis, secondary to sepsis. Hypovolemic hyponatremia, Monitor vital signs Monitor CBC Monitor CMP Continue telemetry monitoring Encourage use of incentive spirometer Continue oxygen supplementation Strict I's and O's, daily weights, continue Lasix 40 mg daily Continue TPN Continue IV vancomycin and Eraxis Continue amiodarone,Not a good anticoagulation candidate currently with concern of continued leak and decrease in Hgb Cardiology following General surgery following, patient is not a good candidate for any further surgical procedures per surgery Critical care following Labs and medication were reviewed.. Continue same treatment. Continue with symptomatic treatment. Resume home medication. Monitor labs and vitals. DVT and GI prophylaxis. Further recommendations as per clinical course of the patient Dictation was produced using [employer] dictation software. please excuse any grammatical, word or spelling errors. Objective - Vital Signs Vital signs: Vital Signs Temp 98.0 F 04/22/24 07:41 Pulse 76 04/22/24 11:49 Resp 17 04/22/24 07:41 BP 108/63 04/22/24 07:41 Pulse Ox 96 04/22/24 08:26 FiO2 70 04/18/24 14:00 Intake & Output 04/21/24 04/22/24 04/22/24 18:59 06:59 18:59 Intake Total 1055 Output Total 1600 440 Balance -545 -440 Weight 62.5 kg 60.5 kg Intake: Intake, IV Titration 1055 Amount Sodium Acetate 40 meq 1055 Potassium Chloride 40 meq Calcium Gluconate 1 gm Magnesium Sulfate gm 1 gm Potassium Phosphate 9 mmol In Amino Acid 5%- D15w 1,000 ml @ 60 mls/hr IV .BY DURATION [facility] Rx#: [id number] Output: Drainage 140 Lower Left Abdomen 130 Medial Abdomen 10 Urine 1600 300 Other: Voiding Method Indwelling Catheter Indwelling Catheter # Bowel Movements 1 1 ABP, PAP, CO, CI - Last Documented Arterial Blood Pressure 90/59 - Labs CBC & Chem 7: 04/22/24 06:12 04/22/24 06:12 Labs: Abnormal Lab Results - Last 24 Hours (Table) 04/21/24 04/22/24 04/22/24 Range/Units 18:20 00:45 06:12 WBC (4.50-10.00) X 10*3/uL RBC (4.10-5.20) X 10*6/uL Hgb (12.0-15.0) g/dL Hct (37.2-46.3) % MCHC (32.0-37.0) g/dL RDW (11.5-14.5) % Immature Gran # (0.00-0.04) X 10*3/uL Neutrophils # (1.80-7.70) X 10*3/uL NRBC/100 WBC Diff (0.00-0.01) X 10*3/uL Sodium 135 L (137-145) mmol/L BUN 52 H (7-17) mg/dL Creatinine 1.22 H (0.52-1.04) mg/dL Glucose 181 H (74-99) mg/dL POC Glucose (mg/dL) 175 H 197 H (70-110) mg/dL Calcium 7.9 L (8.4-10.2) mg/dL Total Protein 4.5 L (6.3-8.2) g/dL Albumin 2.2 L (3.5-5.0) g/dL 04/22/24 04/22/24 04/22/24 Range/Units 06:12 06:19 11:09 WBC 15.15 H (4.50-10.00) X 10*3/uL RBC 2.44 L (4.10-5.20) X 10*6/uL Hgb 7.1 L (12.0-15.0) g/dL Hct 22.5 L (37.2-46.3) % MCHC 31.6 L (32.0-37.0) g/dL RDW 14.7 H (11.5-14.5) % Immature Gran # 0.29 H (0.00-0.04) X 10*3/uL Neutrophils # 12.40 H (1.80-7.70) X 10*3/uL NRBC/100 WBC Diff 0.02 H (0.00-0.01) X 10*3/uL Sodium (137-145) mmol/L BUN (7-17) mg/dL Creatinine (0.52-1.04) mg/dL Glucose (74-99) mg/dL POC Glucose (mg/dL) 213 H 233 H (70-110) mg/dL Calcium (8.4-10.2) mg/dL Total Protein (6.3-8.2) g/dL Albumin (3.5-5.0) g/dL Microbiology - Last 24 Hours (Table) 04/18/24 14:41 Anaerobic Culture - Final Pleural Fluid 04/18/24 14:41 Gram Stain - Final Pleural Fluid Body Fluid Culture - Final 04/18/24 14:40 Blood Culture - Preliminary Blood
--- NOTE | 2024-04-22 15:23 | P.PN ---
Subjective Progress Note Date: 04/22/24 Principal diagnosis: Reason for follow-up is perforated duodenal ulcer/peritonitis Patient is a 88-year-old female presenting to the hospital abdominal pain diagnosed with the pneumoperitoneum secondary to the perforated jejunal ulcer status post laparotomy and modified Lee patch.Patient is status post reexploration with Billroth II gastrectomy with Myles-en-Y reconstruction completed on 04/12/2024 On today's evaluation that is 04/22/2024, Patient is afebrile patient is currently on 2 L current oxygen and denies having any shortness of breath, the patient denies any chest pain or cough, the patient denies any nausea vomiting no significant abdominal pain no diabetes mellitus.. Patient white count is 15.15. Is 1.22 abdominal culture remains to be negative Objective - Vital Signs Vital signs: Vital Signs Temp 98.0 F 04/22/24 07:41 Pulse 76 04/22/24 08:32 Resp 17 04/22/24 07:41 BP 108/63 04/22/24 07:41 Pulse Ox 96 04/22/24 08:26 FiO2 70 04/18/24 14:00 Intake & Output 04/21/24 04/22/24 04/22/24 18:59 06:59 18:59 Intake Total 1055 Output Total 1600 440 Balance -545 -440 Weight 62.5 kg 60.5 kg Intake: Intake, IV Titration 1055 Amount Sodium Acetate 40 meq 1055 Potassium Chloride 40 meq Calcium Gluconate 1 gm Magnesium Sulfate gm 1 gm Potassium Phosphate 9 mmol In Amino Acid 5%- D15w 1,000 ml @ 60 mls/hr IV .BY DURATION [facility] Rx#: [id number] Output: Drainage 140 Lower Left Abdomen 130 Medial Abdomen 10 Urine 1600 300 Other: Voiding Method Indwelling Catheter Indwelling Catheter # Bowel Movements 1 1 ABP, PAP, CO, CI - Last Documented Arterial Blood Pressure 90/59 - Exam GENERAL DESCRIPTION: An elderly female lying in bed in no distress RESPIRATORY SYSTEM: Unlabored breathing , decreased breath sounds at bases HEART: S1 S2 regular rate and rhythm , ABDOMEN: Soft , mild tenderness EXTREMITIES: No edema feet - Labs CBC & Chem 7: 04/22/24 06:12 04/22/24 06:12 Labs: Abnormal Lab Results - Last 24 Hours (Table) 04/21/24 04/21/24 04/21/24 Range/Units 06:47 12:14 18:20 WBC 14.1 H (3.8-10.6) k/uL RBC 2.73 L (3.80-5.40) m/uL Hgb 8.1 L (11.4-16.0) gm/dL Hct 25.2 L (34.0-46.0) % MCHC (32.0-37.0) g/dL RDW (11.5-14.5) % Immature Gran # (0.00-0.04) X 10*3/uL Neutrophils # 11.8 H (1.3-7.7) k/uL NRBC/100 WBC Diff (0.00-0.01) X 10*3/uL Sodium (137-145) mmol/L BUN (7-17) mg/dL Creatinine (0.52-1.04) mg/dL Glucose (74-99) mg/dL POC Glucose (mg/dL) 188 H 175 H (70-110) mg/dL Calcium (8.4-10.2) mg/dL Total Protein (6.3-8.2) g/dL Albumin (3.5-5.0) g/dL 04/22/24 04/22/24 04/22/24 Range/Units 00:45 06:12 06:12 WBC 15.15 H (3.8-10.6) k/uL RBC 2.44 L (3.80-5.40) m/uL Hgb 7.1 L (11.4-16.0) gm/dL Hct 22.5 L (34.0-46.0) % MCHC 31.6 L (32.0-37.0) g/dL RDW 14.7 H (11.5-14.5) % Immature Gran # 0.29 H (0.00-0.04) X 10*3/uL Neutrophils # 12.40 H (1.3-7.7) k/uL NRBC/100 WBC Diff 0.02 H (0.00-0.01) X 10*3/uL Sodium 135 L (137-145) mmol/L BUN 52 H (7-17) mg/dL Creatinine 1.22 H (0.52-1.04) mg/dL Glucose 181 H (74-99) mg/dL POC Glucose (mg/dL) 197 H (70-110) mg/dL Calcium 7.9 L (8.4-10.2) mg/dL Total Protein 4.5 L (6.3-8.2) g/dL Albumin 2.2 L (3.5-5.0) g/dL 04/22/24 04/22/24 Range/Units 06:19 11:09 WBC (3.8-10.6) k/uL RBC (3.80-5.40) m/uL Hgb (11.4-16.0) gm/dL Hct (34.0-46.0) % MCHC (32.0-37.0) g/dL RDW (11.5-14.5) % Immature Gran # (0.00-0.04) X 10*3/uL Neutrophils # (1.3-7.7) k/uL NRBC/100 WBC Diff (0.00-0.01) X 10*3/uL Sodium (137-145) mmol/L BUN (7-17) mg/dL Creatinine (0.52-1.04) mg/dL Glucose (74-99) mg/dL POC Glucose (mg/dL) 213 H 233 H (70-110) mg/dL Calcium (8.4-10.2) mg/dL Total Protein (6.3-8.2) g/dL Albumin (3.5-5.0) g/dL Microbiology - Last 24 Hours (Table) 04/18/24 14:41 Anaerobic Culture - Final Pleural Fluid 04/18/24 14:41 Gram Stain - Final Pleural Fluid Body Fluid Culture - Final 04/18/24 14:40 Blood Culture - Preliminary Blood Assessment and Plan (1) Peritonitis Current Visit: Yes Status: Acute Code(s): K65.9 - PERITONITIS, UNSPECIFIED SNOMED Code(s): 40981227 (2) Leukocytosis Current Visit: Yes Status: Acute Code(s): D72.829 - ELEVATED WHITE BLOOD CELL COUNT, UNSPECIFIED SNOMED Code(s): 533645686 (3) Perforated duodenal ulcer Current Visit: Yes Status: Acute Code(s): K26.5 - CHRONIC OR UNSPECIFIED D UODENAL ULCER WITH PERFORATION SNOMED Code(s): 75699688 Plan: 1patient presented to hospital with abdominal pain constipation has been diagno sed with the pneumoperitoneum secondary to perforated duodenal ulcer status post laparotomy and repair of the perforated jejunal ulcer we will need to cover for gram-negative and yeast. 2patient did have upper GI that was suspicious for leak patient is status post reexploration with Billroth II gastrectomy with Myles-en-Y reconstruction along with abdominal cultures which are so far negative 3-patient is afebrile white count slightly trending up need to be monitored closely if any worsening white count may benefit from a CT abdominal pelvis 4-patient to continue Zosyn and Eraxis, and monitor clinical course closely Family at the bedside questions were answered Dictation was produced using [employer] dictation software. please excuse any grammatical, word or spelling errors. Time with Patient: Less than 30
[2024-04-22 15:35] LABS: Basophils # (A) 0.1 k/uL (0-0.2); Basophils % (A) 0 %; Eosinophils # (A) 0.1 k/uL (0-0.7); Eosinophils % (A) 1 %; HCT 20.7 % (34.0-46.0); Hypochromasia Slight; Lymphocytes # (A) 1.4 k/uL (1.0-4.8); Lymphocytes % (A) 10 %; MCH 29.6 pg (25.0-35.0); MCHC 31.4 g/dL (31.0-37.0); MCV 94.4 fL (80.0-100.0); Mean Platelet Volume 8.9; Monocytes # (A) 0.6 k/uL (0-1.0); Monocytes % (A) 4 %; Neutrophils % (A) 83 %; Platelet Count 382 k/uL (150-450); RBC 2.19 m/uL (3.80-5.40); RDW 15.3 % (11.5-15.5); WBC 14.4 k/uL (3.8-10.6)
[2024-04-22 15:42] LABS: HGB 6.5 gm/dL (11.4-16.0)
[2024-04-22 16:59] LABS: Glucose,Whole Blood 153 mg/dL (70-110)
[2024-04-22] MEDS ORDERED: ACETAMINOPHEN IV (For NPO) 1,000 MG in EMPTY BAG 1 BAG IVPB SCH (18:00)
--- NOTE | 2024-04-22 18:21 | P.PN ---
Progress Note - Text Progress Note Date: 04/22/24 CHIEF COMPLAINT: Perforated duodenal ulcer HISTORY OF PRESENT ILLNESS: NAEO ROS: No fevers or chills. No new chest pain. No productive sputum , PHYSICAL EXAM: VITAL SIGNS: Reviewed CONSTITUTIONAL: Well developed and in no acute distress. EYES: Conjuctivae without sclera icterus. Extraocular movements grossly intact. HEAD, EARS, NOSE, THROAT: Moist buccal mucosa. Head is atraumatic, normocephalic. She is hard of hearing. No nasal drainage. RESPIRATORY: Non-labored respirations and equal bilateral excursions. CARDIOVASCULAR: Palpable 2+ radial pulses. ABDOMEN: SHRUTHI serous. Nontender. MUSCULOSKELETAL: No gross deformity of the lower extremities noted. No clubbing. No cyanosis. SKIN: Good skin turgor. Well perfused. NEUROLOGIC: Cranial nerves II through XII grossly intact. No focal or lateralizing signs. PSYCH: Appropriate affect. Alert and oriented to person, place and time. CLINICAL LABS: Reviewed. ASSESSMENT: 1. Perforated duodenal ulcer 2. Sepsis due to perforated duodenal ulcer 3. Acute blood loss anemia PLAN: 1. FLD started 2. Repeat Hgb 6.5. Patient will be transfused 1 unit PRBCs 3. Pain and Nausea Control
[2024-04-23 00:26] LABS: Glucose,Whole Blood 228 mg/dL (70-110)
[2024-04-23 04:03] LABS: African American GFR (CKD) 45 (>60 ml/min/1.73 sqM); Anion Gap 6 mmol/L; Blood Urea Nitrogen 53 mg/dL (7-17); Calcium 7.9 mg/dL (8.4-10.2); Carbon Dioxide 26 mmol/L (22-30); Chloride 103 mmol/L (98-107); Glucose 149 mg/dL (74-99); Magnesium 1.9 mg/dL (1.6-2.3); Non-African American GFR(CKD) 39 (>60 ml/min/1.73 sqM); Phosphorus 3.4 mg/dL (2.5-4.5); Potassium 3.5 mmol/L (3.5-5.1); Sodium 135 mmol/L (137-145)
[2024-04-23 06:19] LABS: Glucose,Whole Blood 203 mg/dL (70-110)
[2024-04-23 06:36] LABS: HCT 28.6 % (34.0-46.0); Hypochromasia Slight; MCHC 31.5 g/dL (31.0-37.0); MCV 95.1 fL (80.0-100.0); Platelet Count 386 k/uL (150-450); RBC 3.01 m/uL (3.80-5.40); RDW 15.4 % (11.5-15.5); WBC 12.8 k/uL (3.8-10.6)
[2024-04-23] MEDS: ACETAMINOPHEN IV (For NPO) 1,000 MG in EMPTY BAG 1 BAG IVPB PRN (06:51)
[2024-04-23 11:52] LABS: Glucose,Whole Blood 251 mg/dL (70-110)
[2024-04-23] MEDS: LIDOCAINE 4% PATCH TOPICAL SCH (12:15)
[2024-04-23] MEDS: ACETAMINOPHEN TAB 325 MG TAB PO PRN (12:16)
--- NOTE | 2024-04-23 12:48 | P.PN ---
Subjective Patient is seen for follow-up for acute kidney injury. Serum creatinine staying at about 1.1-1.2 mg/dL. maintained on oral Lasix. Receiving TPN. No significant complaints today. Objective - Vital Signs Vital signs: Vital Signs Temp 98.5 F 04/23/24 07:01 Pulse 73 04/23/24 07:01 Resp 16 04/23/24 07:01 BP 117/57 04/23/24 07:01 Pulse Ox 94 L 04/23/24 08:29 FiO2 70 04/18/24 14:00 Intake & Output 04/22/24 04/23/24 04/23/24 18:59 06:59 18:59 Intake Total 0 260 Output Total 2109 1905 110 Balance -2109 -1644 -110 Weight 58.5 kg Intake: Blood Product 0 260 Rc As-1 Unit 0 260 [id number] Output: Drainage 110 55 110 Lower Left Abdomen 100 55 100 Medial Abdomen 10 10 Urine 2000 1850 Uretheral (Walters) 1800 Other: Voiding Method Indwelling Catheter Indwelling Catheter Indwelling Catheter # Bowel Movements 1 ABP, PAP, CO, CI - Last Documented Arterial Blood Pressure 90/59 - Exam patient is awake, comfortable, in no acute distress. Examination of the heart S1 and S2 Examination of the lungs decreased breath sounds at the bases Abdomen is soft Examination lower extremity shows trace edema, mostly left leg - Labs CBC & Chem 7: 04/23/24 03:37 04/23/24 03:37 Labs: Abnormal Lab Results - Last 24 Hours (Table) 04/20/24 04/22/24 04/22/24 Range/Units 05:19 14:59 16:57 WBC 14.4 H (3.8-10.6) k/uL RBC 2.19 L (3.80-5.40) m/uL Hgb 6.5 L* D (11.4-16.0) gm/dL Hct 20.7 L (34.0-46.0) % Neutrophils # 12.0 H (1.3-7.7) k/uL Sodium (137-145) mmol/L BUN (7-17) mg/dL Creatinine (0.52-1.04) mg/dL Glucose (74-99) mg/dL POC Glucose (mg/dL) 153 H (70-110) mg/dL Calcium (8.4-10.2) mg/dL Crossmatch See Detail 04/23/24 04/23/24 04/23/24 Range/Units 00:24 03:37 03:37 WBC 12.8 H (3.8-10.6) k/uL RBC 3.01 L (3.80-5.40) m/uL Hgb 9.0 L D (11.4-16.0) gm/dL Hct 28.6 L (34.0-46.0) % Neutrophils # (1.3-7.7) k/uL Sodium 135 L (137-145) mmol/L BUN 53 H (7-17) mg/dL Creatinine 1.23 H (0.52-1.04) mg/dL Glucose 149 H (74-99) mg/dL POC Glucose (mg/dL) 228 H (70-110) mg/dL Calcium 7.9 L (8.4-10.2) mg/dL Crossmatch 04/23/24 04/23/24 Range/Units 06:18 11:50 WBC (3.8-10.6) k/uL RBC (3.80-5.40) m/uL Hgb (11.4-16.0) gm/dL Hct (34.0-46.0) % Neutrophils # (1.3-7.7) k/uL Sodium (137-145) mmol/L BUN (7-17) mg/dL Creatinine (0.52-1.04) mg/dL Glucose (74-99) mg/dL POC Glucose (mg/dL) 203 H 251 H (70-110) mg/dL Calcium (8.4-10.2) mg/dL Crossmatch Microbiology - Last 24 Hours (Table) 04/18/24 14:41 Anaerobic Culture - Final Pleural Fluid Assessment and Plan Assessment: 1. Acute kidney injury, ATN currently nonoliguric. Improved and stable. UA is quite benign. No evidence of obstruction on CT of the abdomen. Walters catheter has been obstructed previously. This has been flushed. 2. Non-gap metabolic acidosis secondary to acute kidney injury. 3. Perforated duodenal ulcer status post explorative laparotomy with tato patch on 04/09/2024. Patient had re exploration for leak around the Tato patch on 04/12/2024 with Myles-en-Y reconstruction and Billroth II gastrectomy 4. Status post fall with rib fractures 5. A. fib with RVR maintained on amiodarone Plan: continue with TPN as per surgery Continue Lasix, it has been switched to oral Repeat labs in a.m.
--- NOTE | 2024-04-23 12:53 | P.PN ---
Subjective Progress Note Date: 04/23/24 This is an 88-year-old female, recent history of fall about 2 weeks ago, sustained bruising to her left ribs. Patient was brought in yesterday to the ER mostly with symptoms of weakness, failure to thrive, poor oral intake, and suspected dehydration. Patient was also complaining of cough and shortness of breath, no fever no chills, no nausea no vomiting. In addition the patient had no bowel movement for the last 4 days. Apparently the patient has been experiencing intermittent episodes of confusion for the last 1 year. Workup in the ER included a CT of the abdomen and pelvis, it showed pneumoperitoneum and free fluid. Patient was felt that she has ruptured viscus, she was seen by surgery and she underwent exploratory laparotomy for her pneumoperitoneum, and she was found to have perforated duodenal ulcer. Patient had modified Lee patch and postoperatively the patient was extubated nonetheless she was admitted to the ICU, and this consult was initiated. I saw the patient in the ICU this morning, she is on 4 L nasal cannula, does not seem to be in any distress. She is already on Zosyn, and I added Diflucan. She is on LR at 125 cc/h. Her WBC count is 28.6, electrolytes are normal hemoglobin is 10.7 BUN is 97 creatinine down to 2.45 from 3.27 yesterday. Progress note dated April 10, 2024. 88-year-old female seen yesterday in consultation. She was admitted on April 08, with confusion and weakness. The patient had a repair of a perforated duodenal ulcer on April 09. Today is postop day #1. She is currently seen today in room 261. She is currently on 6 L of oxygen by nasal cannula. She has an NG tube in place. She is getting lactated Ringer's at 125 cc an hour. For atrial fibrillation with a rapid ventricular response, she was started on Cardizem drip at 5 mg an hour, and amiodarone 0.5 mg/min. No new labs today other than a glucose of 154. The labs from yesterday are reviewed. White count was 28.6. Hemoglobin 10.7, platelet count was normal. BUN and creatinine were 97 and 2.45. Chest x-ray suggested bilateral pleural effusions. Progress note dated April 11, 2024. 88-year-old female seen today in room 261. The patient was admitted on April 08, with confusion and weakness. The patient was discovered to have a perforated duodenal ulcer, and had a surgical repair performed on April 09. Today is postop day #2. The patient is currently without distress. She is on room air. NG tube remains in place. She is getting lactated Ringer's at 75 cc an hour. Because of atrial fibrillation and RVR, she continues on amiodarone 0.5 mg/min, and Cardizem at 5 mg an hour. Lab data includes a white count 34.6, hemoglobin 9.1, hematocrit 36.6, and a platelet count 442,000. Sodium 143, potassium 4.1, chlorides 113, CO2 23, BUN 71, creatinine 1.64. Glucose is 134. Albumin is 2.3. Blood cultures are currently negative. No chest x-ray today has been ordered. Progress note dated April 12, 2024. This is an 88-year-old female who is seen in room 261. The patient was admitted back on April 08, with confusion and weakness. She was discovered to have a perforated duodenal ulcer, and had surgical repair performed on April 09. Today is postoperative day #3. The patient is going to have a upper GI study today. She is getting lactated Ringer's at 75 cc an hour, 3 L of oxygen by nasal cannula, Cardizem at 5 mg an hour, and amiodarone at 0.5 mg/min. White count was 37.4, hemoglobin 11.6, hematocrit 38.5, and platelet count was normal. Sodium 145, potassium 3.2, chloride 115, CO2 24, BUN 52, creatinine 1.26. Glucose 123. Calcium 8.2. BUN 2.2. Blood cultures are currently negative. The patient's chest x-ray is stable, with some basilar atelectasis on the right. Upper GI study showed a leak, at the site of patch placement, in the duodenal bulb. Progress note dated April 13, 2024. 88-year-old female seen today in room 261. The patient is postop day #1, status post Billroth II gastrectomy, and Myles-en-Y reconstruction. The patient is currently on the ventilator. Ventilator settings include volume assist-control, rate 16, tidal volume 350, FiO2 40%, PEEP of 5. Blood gases show pO2 128, pCO2 34, pH is 7.43. The blood gases were done on 50% FiO2. The patient is on lactated Ringer's at 75 cc an hour, amiodarone 0.5 mg/min, Cardizem at 5 mg/h, and propofol, is restarted at a low rate. Current labs include a white count 34.8, hemoglobin 9.5, hematocrit 32.2, and a platelet count of 325,000. Sodium 141, potassium 4, chloride 114, CO2 21, BUN 48, creatinine 1.51. Glucose is 133. Calcium is 7. Blood cultures are negative. Chest x-ray shows in addition to endotracheal tube, and central venous line, blunting of the costophrenic angles. Progress note dated April 14, 2024. 88-year-old female seen today in room 261. She is postop day #2, status post Billroth II gastrectomy and Myles-en-Y reconstruction. The patient is on the ventilator. She was maintained on the ventilator overnight. Currently, the patient is on volume assist-control, rate 16, tidal volume 350, FiO2 30%, PEEP of 5. Blood gases show pO2 of 148, pCO2 33, pH is 7.42. Blood gases were done on 40%. The patient continues on amiodarone at 0.5 mg/min, lactated Ringer's at 75 cc an hour, propofol at 35 mcg/kg/min, and TPN at 30 cc an hour, to be increased to 55 cc an hour. Current white count is 25.2, hemoglobin 9.5, hematocrit 35.5, platelet count 362,000. Sodium 142, potassium 3.3, chlorides 112, CO2 25, BUN 50, creatinine 1.83. Albumin level was 1.9. Chest x-ray is largely unchanged. Progress note dated April 15, 2024. The patient is seen again in room 261. The patient was successfully extubated yesterday, April 14. She is currently on room air. She is receiving a saline IV at KVO, and TPN at 40 cc an hour. Current labs include a white count 18.1, hemoglobin 8.9, hematocrit 27.4, and a platelet count of 334,000. Sodium 140, potassium 3.9, chlorides 114, CO2 23, BUN 46, and creatinine 1.36. Glucose is 170. Calcium is 7.2. Phosphorus is 1.9. Magnesium is 2.0. Progress note dated April 16, 2024. The patient is seen today in room 261. She is currently on room air. She continues on amiodarone at 0.5 mg/min. She is getting TPN at 40 cc an hour, and saline at KVO. She does continue on Zosyn. All her cultures are thus far negative. She has no specific complaints today. According to the nurse, she is a bit anxious. Current labs include a sodium 139, potassium 3.9, chlorides 114, CO2 23, BUN 35, and creatinine 1.15. Glucose is 178. Calcium 7.5, phosphorus 2.3, and magnesium is normal. Culture data is negative. Venous Doppler yesterday, shows a superficial venous thrombosis involving the cephalic vein, of the left upper extremity. On today's evaluation of 04/17/2024, the patient is being seen for a follow-up. The patient is recovering from her abdominal surgery. The patient undergone exploratory laparotomy and repair of a perforated duodenal ulcer and she is postop day #8 subsequent the patient required a bit to gastrectomy and the patient is this morning, the patient has awake and alert and she is currently on med oxygen. She is in normal sinus rhythm. She is on TPN which is running at a rate of 40 cc an hour. She remains on IV Zosyn. She is using the incentive spirometer. The patient has 2 SHRUTHI drains. The medial drain has drained approximately 180 cc of serous material and the right lower abdominal drain has put out approximately 10 cc. She has had paroxysmal atrial fibrillation. She remains on amiodarone running at 0.5 mg/min. The white cell count is at 17 with a hemoglobin 9.1 and a platelet count of 431. BUN is 28 with a creatinine of 1. Electrolytes are normal limits. LFTs are normal. Blood sugar is at 183. The patient remains on empiric antibiotic coverage with IV Zosyn. She is being given oral diet today. Should be able also to take her oral medication. Surgical abdominal wound scar is dry clean and intact. He is alert and awake and communicating. 04/18/2024, the patient is on BiPAP. The patient decompensated overnight and became hypoxic. Chest x-ray was done and the patient was found to have large bilateral pleural effusion the patient was given Lasix. Noted the patient was on room air oxygen prior to her being transferred to the medical floor. At that point, the patient was placed on a BiPAP. She was started on the Lasix. This morning, she remains on BiPAP at a pressure of over 5 cm of water and FiO2 was brought up to 70%. No chest pain. She is awake and alert and she is producing adequate amount of urine output. The white cell count is currently up to On her blood work 38.9 with a hemoglobin of 9 and a platelet count of 443. BUN is 32 with a creatinine of 1.2 and sodium levels of 136. I repeated her blood work again and her white cell count is up to 40 with a hemoglobin of 8.8. The patient got transferred to the intensive care unit. Immediately, I performed an ultrasound of the chest that showed bilateral pleural effusion and thoracentesis of the right lung was done, pending follow-up chest x-ray and a total of 600 cc of pleural fluid aspirated from the right lung. Hemodynamically stable. No hypotension. Remains on TPN. Remains on IV Zosyn. Remains on Lasix 20 mg IV every 12 hours. Awake and alert and communicating. On today's evaluation of 04/19/2024, the patient seems to be more comfortable comp ared to yesterday. The patient is currently on 2 L of oxygen by nasal cannula. The patient was at the pulmonary edema and developed bilateral pleural effusions. The patient had a thoracentesis yesterday without any complication. A total of 650 cc of pleural fluid was aspirated from the right lung. A repeat chest x-ray from today showing improvement in the volume status. There is still increased interstitial markings bilaterally and small bilateral pleural effusions in the lung bases bilaterally. The patient remains on IV Lasix. The patient is producing adequate amount of urine output. Nevertheless, the fluid balance over the past 24 hours has been +500 cc. The patient remains on TPN for nutritional support. The patient is receiving TPN at a rate of 60 cc an hour. The patient is also on a combination of Zosyn and Eraxis, and vancomycin.. Oxygenation is improved and the patient is currently off the BiPAP and the patient currently is on 3 L of oxygen by nasal cannula. BUN is 40 with a creatinine of 1.2. Sodium level is 137, white cell count is improved is currently down to 21 with a hemoglobin of 7.5 and a platelet count of 393. No other significant events otherwise and the patient's condition is slightly more stable compared to yesterday. She is awake and alert and communicating. On 04/20/2024, the patient is being seen for a follow-up. The patient is doing well on 3 L of oxygen by nasal cannula. No significant respiratory distress. A follow-up chest x-ray was done today and showed improvement in volume status with small bilateral pleural effusion and some increased interstitial markings bilaterally. Nevertheless, the patient has been diuresed adequately and the patient is currently in negative fluid balance and the patient will be switched to oral Lasix. IV Lasix will be discontinued and the patient has been switched to 40 mg of Lasix on a daily basis. Remains on TPN for nutritional support. She did have a bloody bowel movement, unsure if it is melanotic. This will be monitored as the patient hemoglobin has remeasured at 8.7 on today's evaluation. The white cell count is 15.8. BUN is 48 with a creatinine 1.2 and sodium levels at 135 and a potassium level of 3.1. LFTs are all stable. Antibiotic coverage remains unchanged and the patient remains on a combination of Eraxis and Zosyn. Surgical wound site is dry clean and intact. Renal function remained stable On 04/21/2024, seen the patient for a follow-up. She is currently on room air oxygen. She is having some coffee-ground material in her mouth and I suspect ongoing GI bleed. Note that the patient's hemoglobin had dropped down to 6.6 and the patient does get transfused with packed RBC and a subsequent hemoglobin is up to 8.7 and currently is at 8.1. No acute evidence of any active upper GI bleeding. The patient is awake and alert and communicating. She remains on TPN for nutritional support. Surgical scars are dry clean and intact. Antibiotic coverage with IV Zosyn and Eraxis per IDs recommendations. As mentioned, the patient is postthoracentesis. The patient is currently on diuretics and the patient receiving Lasix 40 mg p.o. daily.. The patient is on room air oxygen. No other significant events overnight. 04/22/2024, the patient is suspected to have some ongoing low-grade GI bleed. She is still having some black stools and coughing out some coffee-ground material. Hemoglobin is at 7.1. Noted that hemoglobin has dropped slightly compared to yesterday is down from 8.1. Respiratory status is stable. She is on 2 L of O2 nasal cannula. Pulse ox 96%. Platelet count is at 397. Remains appropriate for oxygen support. Creatinine is stable at 1.2. BUN is 52 with a sodium of 135. No other significant events overnight. Remains alert and awake and communicating. No confusion. No altered mentation. 04/23/2024, the patient had another bloody neurologic bowel movement that she is coughing out coffee-ground material. I suspect ongoing GI bleed. Noted the repeat hemoglobin from yesterday was at 6.5. The patient was given a unit of packed RBC and the hemoglobin is currently at 9. Platelet counts are stable. Abdominal exam is stable. Creatinine is at 1.2 with a BUN of 53. Sodium is at 135. Repeat hemoglobin will be obtained. She remains on TPN for nutritional support. Overall respiratory status is stable. The patient is currently on 2 L of oxygen by nasal cannula with a pulse ox of 94%. General surgery is on the case. Objective - Vital Signs Vital signs: Vital Signs Temp 98.5 F 04/23/24 07:01 Pulse 73 04/23/24 07:01 Resp 16 04/23/24 07:01 BP 117/57 04/23/24 07:01 Pulse Ox 94 L 04/23/24 08:29 FiO2 70 04/18/24 14:00 Intake & Output 04/22/24 04/23/24 04/23/24 18:59 06:59 18:59 Intake Total 0 260 Output Total 2109 1905 110 Balance -0 -1645 -110 Weight 58.5 kg Intake: Blood Product 0 260 Rc As-1 Unit 0 260 [id number] Output: Drainage 110 55 110 Lower Left Abdomen 100 55 100 Medial Abdomen 10 10 Urine 1999 1850 Uretheral (Walters) 1800 Other: Voiding Method Indwelling Catheter Indwelling Catheter Indwelling Catheter # Bowel Movements 1 ABP, PAP, CO, CI - Last Documented Arterial Blood Pressure 90/59 - Exam No acute distress, awake and alert, no significant respiratory distress and the patient is currently on room air oxygen HEENT examination is grossly unremarkable. Neck supple. Full range of motion. No adenopathy thyromegaly or neck vein distention. Cardiovascular examination reveals an irregular rhythm and rate. S1-S2 normal. No S3 or S4. No discernible murmur noted. Lungs reveal rhonchi. No wheezes or crackles. Breath sounds are quite diminished in lung bases and there is also dullness to question. The patient has thoracic kyphosis. Abdomen soft, without bowel sounds. Abdominal incision is dressed. The patient has SHRUTHI drains in place, output is minimal at this point in time. No significant abdominal distention. Positive bowel sounds. SHRUTHI drains are in place and serous output is noted. Extremities are intact. No cyanosis clubbing or edema. Skin is without rash or lesion. Neurologic examination is brief but nonfocal. - Labs CBC & Chem 7: 04/23/24 03:37 04/23/24 03:37 Labs: Abnormal Lab Results - Last 24 Hours (Table) 04/20/24 04/22/24 04/22/24 Range/Units 05:19 11:09 14:59 WBC 14.4 H (3.8-10.6) k/uL RBC 2.19 L (3.80-5.40) m/uL Hgb 6.5 L* D (11.4-16.0) gm/dL Hct 20.7 L (34.0-46.0) % Neutrophils # 12.0 H (1.3-7.7) k/uL Sodium (137-145) mmol/L BUN (7-17) mg/dL Creatinine (0.52-1.04) mg/dL Glucose (74-99) mg/dL POC Glucose (mg/dL) 233 H (70-110) mg/dL Calcium (8.4-10.2) mg/dL Crossmatch See Detail 04/22/24 04/23/24 04/23/24 Range/Units 16:57 00:24 03:37 WBC (3.8-10.6) k/uL RBC (3.80-5.40) m/uL Hgb (11.4-16.0) gm/dL Hct (34.0-46.0) % Neutrophils # (1.3-7.7) k/uL Sodium 135 L (137-145) mmol/L BUN 53 H (7-17) mg/dL Creatinine 1.23 H (0.52-1.04) mg/dL Glucose 149 H (74-99) mg/dL POC Glucose (mg/dL) 153 H 228 H (70-110) mg/dL Calcium 7.9 L (8.4-10.2) mg/dL Crossmatch 04/23/24 04/23/24 Range/Units 03:37 06:18 WBC 12.8 H (3.8-10.6) k/uL RBC 3.01 L (3.80-5.40) m/uL Hgb 9.0 L D (11.4-16.0) gm/dL Hct 28.6 L (34.0-46.0) % Neutrophils # (1.3-7.7) k/uL Sodium (137-145) mmol/L BUN (7-17) mg/dL Creatinine (0.52-1.04) mg/dL Glucose (74-99) mg/dL POC Glucose (mg/dL) 203 H (70-110) mg/dL Calcium (8.4-10.2) mg/dL Crossmatch Microbiology - Last 24 Hours (Table) 04/18/24 14:41 Anaerobic Culture - Final Pleural Fluid 04/18/24 14:41 Gram Stain - Final Pleural Fluid Body Fluid Culture - Final Assessment and Plan Plan: Acute hypoxic respiratory failure and the patient is currently on room air oxygen. The patient has been diuresed adequately. The patient also underwent thoracentesis to optimize her respiratory status and volume status. Patient is currently on 2 L O2 nasal cannula CHF with bilateral pleural effusions and pulm vascular congestion/edema, currently on oral Lasix Acute leukocytosis, rule out septic event. Possibility of anastomotic leak cannot be completely excluded. Currently on IV Zosyn, vancomycin and Eraxis. The white cell count is at 15 Acute on chronic anemia consider the possibility of an ongoing GI bleed as the patient is also coughing out some coffee-ground material. The patient was transfused with 2 units of packed RBCs and most recent hemoglobin is at 8.1 on . Hemoglobin from 04/22/2040 down to 7.1, suspect ongoing low-grade GI bleed Postoperative day # 14 5, S/P exploratory laparotomy, repair of perforated duodenal ulcer, and application of a modified Lee patch. Upper GI series, showing leak, at the site of the modified Lee patch. Postoperative day # 10 status post Billroth II gastrectomy, and Myles-en-Y reconstruction. The patient remains on TPN for nutritional support. Acute on chronic anemia, received another unit of packed RBC yesterday for hemoglobin 6.5. Adequate blood response and hemoglobin is improved Suspect ongoing GI bleed as the patient is still having some episodic melanotic stools. Also cough and mild coffee-ground material. Suspect an upper GI bleed. Acute hypoxic respiratory failure, recovered and the patient was extubated on 04/14/2024. The patient was room air oxygen and the patient got transferred to the medical floor to be readmitted back to the ICU the patient was weaned off the BiPAP and the patient is currently is on oxygen by nasal cannula Acute abdominal sepsis, secondary to above and the patient is currently on IV Zosyn, vancomycin and Eraxis Acute atrial fibrillation, with rapid ventricular response. The cardiac rhythm is back to sinus and the patient oral amiodarone History of splenic hematoma, without rupture. The patient is currently on no anticoagulants Acute dehydration with acute kidney injury. Recovered and the patient renal function is normal Nonanion gap metabolic acidosis, recovered Hypovolemic hyponatremia, recovered. General medical debility. Plan: Watch for any signs of GI bleeding, there is concern for an ongoing GI bleed. Transfused with a unit of packed RBC yesterday. Repeat hemoglobin at noon time today. General surgery is on the case regarding ongoing concerns of GI bleed. Patient is currently on 2 L of oxygen nasal cannula Thoracentesis of the right lung was done without any complications Surgical scar is dry clean and intact Blood cultures are negative and continue the patient on vancomycin Zosyn and Eraxis Adequate pain control Cardiac rhythm is sinus Will continue to follow.
--- NOTE | 2024-04-23 13:10 | P.PN ---
Subjective Progress Note Date: 04/23/24 This is an 88-year-old female, recent history of fall about 2 weeks ago, sustained bruising to her left ribs. Patient was brought in yesterday to the ER mostly with symptoms of weakness, failure to thrive, poor oral intake, and suspected dehydration. Patient was also complaining of cough and shortness of breath, no fever no chills, no nausea no vomiting. In addition the patient had no bowel movement for the last 4 days. Apparently the patient has been experiencing intermittent episodes of confusion for the last 1 year. Workup in the ER included a CT of the abdomen and pelvis, it showed pneumoperitoneum and free fluid. Patient was felt that she has ruptured viscus, she was seen by surgery and she underwent exploratory laparotomy for her pneumoperitoneum, and she was found to have perforated duodenal ulcer. Patient had modified Lee patch and postoperatively the patient was extubated nonetheless she was admitted to the ICU, and this consult was initiated. I saw the patient in the ICU this morning, she is on 4 L nasal cannula, does not seem to be in any distress. She is already on Zosyn, and I added Diflucan. She is on LR at 125 cc/h. 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 Patient seen examined. Currently sitting upright in the chair. States she feels much better. Had a bowel movement this morning. Denies any nausea or vomiting On today's evaluation of 04/17/2024, the patient is being seen for a follow-up. The patient is recovering from her abdominal surgery. The patient undergone exploratory laparotomy and repair of a perforated duodenal ulcer and she is postop day #8 subsequent the patient required a bit to gastrectomy and the patient is this morning, the patient has awake and alert and she is currently on med oxygen. She is in normal sinus rhythm. She is on TPN which is running at a rate of 40 cc an hour. She remains on IV Zosyn. She is using the incentive spirometer. The patient has 2 SHRUTHI drains. The medial drain has drained approximately 180 cc of serous material and the right lower abdominal drain has put out approximately 10 cc. She has had paroxysmal atrial fibrillation. She remains on amiodarone running at 0.5 mg/min. The white cell count is at 17 with a hemoglobin 9.1 and a platelet count of 431. BUN is 28 with a creatinine of 1. Electrolytes are normal limits. LFTs are normal. Blood sugar is at 183. The patient remains on empiric antibiotic coverage with IV Zosyn. She is being given oral diet today. Should be able also to take her oral medication. Surgical abdominal wound scar is dry clean and intact. He is alert and awake and communicating. 04/18/2024, the patient is on BiPAP. The patient decompensated overnight and became hypoxic. Chest x-ray was done and the patient was found to have large bilateral pleural effusion the patient was given Lasix. Noted the patient was on room air oxygen prior to her being transferred to the medical floor. At that point, the patient was placed on a BiPAP. She was started on the Lasix. This morning, she remains on BiPAP at a pressure of over 5 cm of water and FiO2 was brought up to 70%. No chest pain. She is awake and alert and she is producing adequate amount of urine output. The white cell count is currently up to On her blood work 38.9 with a hemoglobin of 9 and a platelet count of 443. BUN is 32 with a creatinine of 1.2 and sodium levels of 136. I repeated her blood work again and her white cell count is up to 40 with a hemoglobin of 8.8. The patient got transferred to the intensive care unit. Immediately, I performed an ultrasound of the chest that showed bilateral pleural effusion and thoracentesis of the right lung was done, pending follow-up chest x-ray and a total of 600 cc of pleural fluid aspirated from the right lung. Hemodynamically stable. No hypotension. Remains on TPN. Remains on IV Zosyn. Remains on Lasix 20 mg IV every 12 hours. Awake and alert and communicating. On today's evaluation of 04/19/2024, the patient seems to be more comfortable compared to yesterday. The patient is currently on 2 L of oxygen by nasal cannula. The patient was at the pulmonary edema and developed bilateral pleural effusions. The patient had a thoracentesis yesterday without any complication. A total of 650 cc of pleural fluid was aspirated from the right lung. A repeat chest x-ray from today showing improvement in the volume status. There is still increased interstitial markings bilaterally and small bilateral pleural effusions in the lung bases bilaterally. The patient remains on IV Lasix. The patient is producing adequate amount of urine output. Nevertheless, the fluid balance over the past 24 hours has been +500 cc. The patient remains on TPN for nutritional support. The patient is receiving TPN at a rate of 60 cc an hour. The patient is also on a combination of Zosyn and Eraxis, and vancomycin.. Oxygenation is improved and the patient is currently off the BiPAP and the patient currently is on 3 L of oxygen by nasal cannula. BUN is 40 with a creat inine of 1.2. Sodium level is 137, white cell count is improved is currently down to 21 with a hemoglobin of 7.5 and a platelet count of 393. No other significant events otherwise and the patient's condition is slightly more stable compared to yesterday. She is awake and alert and communicating. 04/20. Patient seen and examined. Blood work done this morning showed WBC 13.9, hemoglobin 6.6, platelet count 397, sodium 135, potassium 3.1, BUN 40, creatinine 1.21, glucose 185. Patient being transfused unit of packed red blood cell. Patient had dark-colored stool this morning. 04/21. Patient seen and examined. Blood work done this morning showed sodium 135, potassium 4, BUN 44, creatinine 1.18, glucose 162,. Patient was coughing up dark-colored phlegm. Surgery ordered stat CBC. Patient was having blood in the stools 04/22. Patient seen and examined. Patient had dark stool this morning, coughing up some dark material as well. General surgery aware. Repeat CBC ordered 04/23. Patient seen examined. Blood work done this morning showed WBC 12.8, hemoglobin 9, sodium 135, potassium 3.5, BUN 53, creatinine 1.23. States she feels slightly better. REVIEW OF SYSTEMS: CONSTITUTIONAL: No fever, no malaise,. CARDIOVASCULAR: No chest pain, no palpitations, no syncope. PULMONARY: No shortness of breath, no cough, GASTROINTESTINAL: As mentioned above NEUROLOGICAL: No headaches, no weakness, PHYSICAL EXAMINATION: GENERAL: The patient is alert alert, chronically ill looking HEENT: Pupils are round and equally reacting to light. EOMI. No scleral icterus. No conjunctival pallor. Normocephalic, atraumatic. No pharyngeal erythema. No thyromegaly. CARDIOVASCULAR: S1 and S2 present. No murmurs, rubs, or gallops. PULMONARY: Diminished breath sound the bases bilaterally, no wheeze ABDOMEN: Soft, nontender, positive bowel sounds MUSCULOSKELETAL: No joint swelling or deformity. EXTREMITIES: No cyanosis, clubbing, or pedal edema. NEUROLOGICAL: Gross neurological examination did not reveal any focal deficits. SKIN: No rashes. Assessment and plan S/P exploratory laparotomy, repair of perforated duodenal ulcer, and application of a modified Lee patch. status post Billroth II gastrectomy, and Myles-en-Y reconstruction. Upper GI series, showing leak, at the site of the modified Lee patch. acute abdominal sepsis. Acute atrial fibrillation, with rapid ventricular response. Acute dehydration with acute kidney injury. Nonanion gap metabolic acidosis. Leukocytosis, secondary to sepsis. Hypovolemic hyponatremia, Monitor vital signs Monitor CBC Monitor CMP Continue telemetry monitoring Encourage use of incentive spirometer Continue oxygen supplementation Strict I's and O's, daily weights, continue Lasix 40 mg daily Continue TPN Continue IV vancomycin and Eraxis Continue amiodarone,Not a good anticoagulation candidate currently with concern of continued leak and decrease in Hgb Cardiology following General surgery following, patient is not a good candidate for any further surgical procedures per surgery Critical care following Labs and medication were reviewed.. Continue same treatment. Continue with symptomatic treatment. Resume home medication. Monitor labs and vitals. DVT and GI prophylaxis. Further recommendations as per clinical course of the patient Dictation was produced using [employer] dictation software. please excuse any grammatical, word or spelling errors. Objective - Vital Signs Vital signs: Vital Signs Temp 98.5 F 04/23/24 07:01 Pulse 73 04/23/24 07:01 Resp 16 04/23/24 07:01 BP 117/57 04/23/24 07:01 Pulse Ox 94 L 04/23/24 08:29 FiO2 70 04/18/24 14:00 Intake & Output 04/22/24 04/23/24 04/23/24 18:59 06:59 18:59 Intake Total 0 260 Output Total 2992 1900 110 Balance -0 -1645 -110 Weight 58.5 kg Intake: Blood Product 0 260 Rc As-1 Unit 0 260 [id number] Output: Drainage 110 55 110 Lower Left Abdomen 100 55 100 Medial Abdomen 10 10 Urine 1999 1850 Uretheral (Walters) 1800 Other: Voiding Method Indwelling Catheter Indwelling Catheter Indwelling Catheter # Bowel Movements 1 ABP, PAP, CO, CI - Last Documented Arterial Blood Pressure 90/59 - Labs CBC & Chem 7: 04/23/24 03:37 04/23/24 03:37 Labs: Abnormal Lab Results - Last 24 Hours (Table) 04/20/24 04/22/24 04/22/24 Range/Units 05:19 11:09 14:59 WBC 14.4 H (3.8-10.6) k/uL RBC 2.19 L (3.80-5.40) m/uL Hgb 6.5 L* D (11.4-16.0) gm/dL Hct 20.7 L (34.0-46.0) % Neutrophils # 12.0 H (1.3-7.7) k/uL Sodium (137-145) mmol/L BUN (7-17) mg/dL Creatinine (0.52-1.04) mg/dL Glucose (74-99) mg/dL POC Glucose (mg/dL) 233 H (70-110) mg/dL Calcium (8.4-10.2) mg/dL Crossmatch See Detail 04/22/24 04/23/24 04/23/24 Range/Units 16:57 00:24 03:37 WBC (3.8-10.6) k/uL RBC (3.80-5.40) m/uL Hgb (11.4-16.0) gm/dL Hct (34.0-46.0) % Neutrophils # (1.3-7.7) k/uL Sodium 135 L (137-145) mmol/L BUN 53 H (7-17) mg/dL Creatinine 1.23 H (0.52-1.04) mg/dL Glucose 149 H (74-99) mg/dL POC Glucose (mg/dL) 153 H 228 H (70-110) mg/dL Calcium 7.9 L (8.4-10.2) mg/dL Crossmatch 04/23/24 04/23/24 Range/Units 03:37 06:18 WBC 12.8 H (3.8-10.6) k/uL RBC 3.01 L (3.80-5.40) m/uL Hgb 9.0 L D (11.4-16.0) gm/dL Hct 28.6 L (34.0-46.0) % Neutrophils # (1.3-7.7) k/uL Sodium (137-145) mmol/L BUN (7-17) mg/dL Creatinine (0.52-1.04) mg/dL Glucose (74-99) mg/dL POC Glucose (mg/dL) 203 H (70-110) mg/dL Calcium (8.4-10.2) mg/dL Crossmatch Microbiology - Last 24 Hours (Table) 04/18/24 14:41 Anaerobic Culture - Final Pleural Fluid 04/18/24 14:41 Gram Stain - Final Pleural Fluid Body Fluid Culture - Final
--- NOTE | 2024-04-23 14:43 | P.PN ---
Subjective Progress Note Date: 04/23/24 CHIEF COMPLAINT: Perforated duodenal ulcer HISTORY OF PRESENT ILLNESS: The patient is a 88-year-old female admitted for perforated duodenal ulcer. Patient has had 2 exploratory laparotomies with recent Billroth II and Myles-en-Y reconstruction 04/12/2024. She is sitting up in a chair. Family is at bedside. Patient has been managed by multiple consultants including pulmonary team, medicine team and nephrology team. Patient still has a Walters catheter since transfer from the ICU stepdown floor. Urine is clear. Patient denies any abdominal pain. Per discussion with nursing, patient has low appetite. She had been advanced to full liquid diet from yesterday however is low appetite. No increased abdominal pain. ROS: No fevers or chills. No new chest pain. PHYSICAL EXAM: VITAL SIGNS: Reviewed CONSTITUTIONAL: Well developed and in no acute distress. EYES: Conjuctivae without sclera icterus. Extraocular movements grossly intact. HEAD, EARS, NOSE, THROAT: Moist buccal mucosa. Head is atraumatic, normocephalic. She is hard of hearing. No nasal drainage. RESPIRATORY: Non-labored respirations and equal bilateral excursions. CARDIOVASCULAR: Palpable 2+ radial pulses. ABDOMEN: Dressing intact. SHRUTHI serous. MUSCULOSKELETAL: No gross deformity of the lower extremities noted. No clubbing. No cyanosis. SKIN: Good skin turgor. Well perfused. NEUROLOGIC: Cranial nerves II through XII grossly intact. No focal or lateralizing signs. PSYCH: Appropriate affect. Alert and oriented to person, place and time. CLINICAL LABS: Reviewed. Hemoglobin down to 6.5 now up to 9.0 after 2 units of blood transfusion. ASSESSMENT: 1. Perforated duodenal ulcer 2. Sepsis due to perforated duodenal ulcer 3. Acute blood loss anemia PLAN: 1. Will continue with full liquid diet. 2. In review of medications, Protonix 40 mg twice daily adjusted from daily due to recent duodenal ulcer 3. Discontinue Walters catheter 4. Management of vascular congestion per pulmonary team Objective - Vital Signs Vital signs: Vital Signs Temp 97.6 F 04/23/24 13:40 Pulse 71 04/23/24 13:40 Resp 20 04/23/24 13:40 BP 144/84 04/23/24 13:40 Pulse Ox 93 L 04/23/24 13:40 FiO2 70 04/18/24 14:00 Intake & Output 04/22/24 04/23/24 04/23/24 18:59 06:59 18:59 Intake Total 0 260 Output Total 2109 1903 110 Balance -0 -1644 -110 Weight 58.5 kg Intake: Blood Product 0 260 Rc As-1 Unit 0 260 [id number] Output: Drainage 110 55 110 Lower Left Abdomen 100 55 100 Medial Abdomen 10 10 Urine 1999 1850 Uretheral (Walters) 1800 Other: Voiding Method Indwelling Catheter Indwelling Catheter Indwelling Catheter # Bowel Movements 1 ABP, PAP, CO, CI - Last Documented Arterial Blood Pressure 90/59 - Labs CBC & Chem 7: 04/23/24 03:37 04/23/24 03:37 Labs: Abnormal Lab Results - Last 24 Hours (Table) 04/20/24 04/22/24 04/22/24 Range/Units 05:19 14:59 16:57 WBC 14.4 H (3.8-10.6) k/uL RBC 2.19 L (3.80-5.40) m/uL Hgb 6.5 L* D (11.4-16.0) gm/dL Hct 20.7 L (34.0-46.0) % Neutrophils # 12.0 H (1.3-7.7) k/uL Sodium (137-145) mmol/L BUN (7-17) mg/dL Creatinine (0.52-1.04) mg/dL Glucose (74-99) mg/dL POC Glucose (mg/dL) 153 H (70-110) mg/dL Calcium (8.4-10.2) mg/dL Crossmatch See Detail 04/23/24 04/23/24 04/23/24 Range/Units 00:24 03:37 03:37 WBC 12.8 H (3.8-10.6) k/uL RBC 3.01 L (3.80-5.40) m/uL Hgb 9.0 L D (11.4-16.0) gm/dL Hct 28.6 L (34.0-46.0) % Neutrophils # (1.3-7.7) k/uL Sodium 135 L (137-145) mmol/L BUN 53 H (7-17) mg/dL Creatinine 1.23 H (0.52-1.04) mg/dL Glucose 149 H (74-99) mg/dL POC Glucose (mg/dL) 228 H (70-110) mg/dL Calcium 7.9 L (8.4-10.2) mg/dL Crossmatch 04/23/24 04/23/24 Range/Units 06:18 11:50 WBC (3.8-10.6) k/uL RBC (3.80-5.40) m/uL Hgb (11.4-16.0) gm/dL Hct (34.0-46.0) % Neutrophils # (1.3-7.7) k/uL Sodium (137-145) mmol/L BUN (7-17) mg/dL Creatinine (0.52-1.04) mg/dL Glucose (74-99) mg/dL POC Glucose (mg/dL) 203 H 251 H (70-110) mg/dL Calcium (8.4-10.2) mg/dL Crossmatch
[2024-04-23] MEDS: POTASSIUM CHLORIDE 20 MEQ in WATER FOR INJECTION 1 100ML.BAG IVPB SCH (14:48)
--- NOTE | 2024-04-23 15:21 | P.PN ---
Subjective Progress Note Date: 04/23/24 Principal diagnosis: Reason for follow-up is perforated duodenal ulcer/peritonitis Patient is a 88-year-old female presenting to the hospital abdominal pain diagnosed with the pneumoperitoneum secondary to the perforated jejunal ulcer status post laparotomy and modified Lee patch.Patient is status post reexploration with Billroth II gastrectomy with Myles-en-Y reconstruction completed on 04/12/2024 On today's evaluation that is 04/23/2024, patient has been afebrile, patient is breathing comfortably and is currently on 2 L current oxygen patient denies having any significant cough no chest pain shortness of breath, patient denies nausea vomiting or diarrhea and abdominal pain has decreased in intensity. Patient white count is down to 12.8, creatinine 1.23 Objective - Vital Signs Vital signs: Vital Signs Temp 97.6 F 04/23/24 13:40 Pulse 71 04/23/24 13:40 Resp 20 04/23/24 13:40 BP 144/84 04/23/24 13:40 Pulse Ox 93 L 04/23/24 13:40 FiO2 70 04/18/24 14:00 Intake & Output 04/22/24 04/23/24 04/23/24 18:59 06:59 18:59 Intake Total 0 1315 Output Total 2110 1905 110 Balance -2110 -590 -110 Weight 58.5 kg Intake: Intake, IV Titration 1055 Amount Sodium Acetate 40 meq 1055 Potassium Chloride 40 meq Calcium Gluconate 1 gm Magnesium Sulfate gm 1 gm Potassium Phosphate 9 mmol In Amino Acid 5%- D15w 1,000 ml @ 60 mls/hr IV .BY DURATION [facility] Rx#: [id number] Blood Product 0 260 Rc As-1 Unit 0 260 [id number] Output: Drainage 110 55 110 Lower Left Abdomen 100 55 100 Medial Abdomen 10 10 Urine 1999 1850 Uretheral (Walters) 1800 Other: Voiding Method Indwelling Catheter Indwelling Catheter Indwelling Catheter # Bowel Movements 1 ABP, PAP, CO, CI - Last Documented Arterial Blood Pressure 90/59 - Exam GENERAL DESCRIPTION: An elderly female lying in bed in no distress RESPIRATORY SYSTEM: Unlabored breathing , decreased breath sounds at bases HEART: S1 S2 regular rate and rhythm , ABDOMEN: Soft , mild tenderness EXTREMITIES: No edema feet - Labs CBC & Chem 7: 04/23/24 03:37 04/23/24 03:37 Labs: Abnormal Lab Results - Last 24 Hours (Table) 04/20/24 04/22/24 04/22/24 Range/Units 05:19 14:59 16:57 WBC 14.4 H (3.8-10.6) k/uL RBC 2.19 L (3.80-5.40) m/uL Hgb 6.5 L* D (11.4-16.0) gm/dL Hct 20.7 L (34.0-46.0) % Neutrophils # 12.0 H (1.3-7.7) k/uL Sodium (137-145) mmol/L BUN (7-17) mg/dL Creatinine (0.52-1.04) mg/dL Glucose (74-99) mg/dL POC Glucose (mg/dL) 153 H (70-110) mg/dL Calcium (8.4-10.2) mg/dL Crossmatch See Detail 04/23/24 04/23/24 04/23/24 Range/Units 00:24 03:37 03:37 WBC 12.8 H (3.8-10.6) k/uL RBC 3.01 L (3.80-5.40) m/uL Hgb 9.0 L D (11.4-16.0) gm/dL Hct 28.6 L (34.0-46.0) % Neutrophils # (1.3-7.7) k/uL Sodium 135 L (137-145) mmol/L BUN 53 H (7-17) mg/dL Creatinine 1.23 H (0.52-1.04) mg/dL Glucose 149 H (74-99) mg/dL POC Glucose (mg/dL) 228 H (70-110) mg/dL Calcium 7.9 L (8.4-10.2) mg/dL Crossmatch 04/23/24 04/23/24 Range/Units 06:18 11:50 WBC (3.8-10.6) k/uL RBC (3.80-5.40) m/uL Hgb (11.4-16.0) gm/dL Hct (34.0-46.0) % Neutrophils # (1.3-7.7) k/uL Sodium (137-145) mmol/L BUN (7-17) mg/dL Creatinine (0.52-1.04) mg/dL Glucose (74-99) mg/dL POC Glucose (mg/dL) 203 H 251 H (70-110) mg/dL Calcium (8.4-10.2) mg/dL Crossmatch Assessment and Plan (1) Peritonitis Current Visit: Yes Status: Acute Code(s): K65.9 - PERITONITIS, UNSPECIFIED SNOMED Code(s): 76149778 (2) Leukocytosis Current Visit: Yes Status: Acute Code(s): D72.829 - ELEVATED WHITE BLOOD CELL COUNT, UNSPECIFIED SNOMED Code(s): 216081142 (3) Perforated duodenal ulcer Current Visit: Yes Status: Acute Code(s): K26.5 - CHRONIC OR UNSPECIFIED DUODENAL ULCER WITH PERFORATION SNOMED Code(s): 97000380 Plan: 1patient presented to hospital with abdominal pain constipation has been diagnosed with the pneumoperitoneum secondary to perforated duodenal ulcer status post laparotomy and repair of the perforated jejunal ulcer we will need to cover for gram-negative and yeast. 2patient did have upper GI that was suspicious for leak patient is status post reexploration with Billroth II gastrectomy with Myles-en-Y reconstruction along with abdominal cultures which are so far negative 3-patient is afebrile white count is trending down today and will be monitored closely 4-patient to continue Zosyn and Eraxis, and continue supportive care Dictation was produced using [employer] dictation software. please excuse any grammatical, word or spelling errors. Time with Patient: Less than 30
[2024-04-23 15:51] LABS: HCT 29.3 % (34.0-46.0); HGB 9.6 gm/dL (11.4-16.0); MCH 30.2 pg (25.0-35.0); MCHC 32.9 g/dL (31.0-37.0); MCV 91.7 fL (80.0-100.0); Mean Platelet Volume 9.1; Platelet Count 394 k/uL (150-450); Poikilocytosis Slight; RBC 3.19 m/uL (3.80-5.40); RDW 15.8 % (11.5-15.5); WBC 17.2 k/uL (3.8-10.6)
[2024-04-23 16:59] LABS: Glucose,Whole Blood 198 mg/dL (70-110)
[2024-04-23] MEDS: PANTOPRAZOLE 40 MG/10 ML VIAL IVP SCH (20:17)
[2024-04-23 20:59] LABS: Glucose,Whole Blood 185 mg/dL (70-110)
[2024-04-24 00:01] LABS: Glucose,Whole Blood 222 mg/dL (70-110)
[2024-04-24 06:16] LABS: Glucose,Whole Blood 202 mg/dL (70-110)
--- NOTE | 2024-04-24 08:41 | P.PN ---
Subjective Progress Note Date: 04/24/24 This is an 80-year-old female with a history of a recent fall about 2 weeks ago who was brought into the emergency department with complaints of weakness and poor oral intake. Patient had an exploratory laparotomy and was found to have a perforated duodenal ulcer with a Lee patch placed. She remains in ICU. She is alert and oriented. She is still significantly weak. 04/11/2024 Patient seen and evaluated sitting in chair at bedside this morning. Yesterday had a salvador catheter placed by urology. Patient reports she is very sore today. 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 Valencia. Patient tolerated well. She remains on mechanical ventilation. 04/17/2024 Patient seen this morning laying in bed comfortably. She remains off of mechanical ventilation. She is still NPO and is on TPN. She reports pain is controlled. 04/18/2024 Patient seen this morning laying in bed with BiPAP on. She does report a little more pain today. She still remains on TPN, however a clear liquid diet has been ordered. 04/24/2024 Patient seen and evaluated this morning sitting up in chair at bedside. She remains on 2 L of oxygen via nasal cannula. She remains on TPN and a full liquid diet. Over the weekend hemoglobin dropped to 6.5 and patient received 1 unit of packed red blood cells. Repeat hemoglobin yesterday was 9.6. Labs pending for today. Patient is still quite weak and does not have much of an appetite. Nursing staff does note patient continues to have liquid black stool and is coughing up black and harris sputum. Objective - Vital Signs Vital signs: Vital Signs Temp 97.5 F L 04/24/24 07:10 Pulse 68 04/24/24 07:10 Resp 17 04/24/24 07:10 BP 129/56 04/24/24 07:10 Pulse Ox 96 04/24/24 07:10 FiO2 70 04/18/24 14:00 Intake & Output 04/23/24 04/24/24 04/24/24 18:59 06:59 18:59 Intake Total 1066 Output Total 1710 1325 0 Balance -644 -1325 0 Weight 59 kg Intake: Intake, IV Titration 1066 Amount Mvi, Adult No.4 with Vit 1066 K 10 ml Trace (Conc-1Ml/ Dose) 1 ml Sodium Acetate 40 meq Potassium Chloride 40 meq Calcium Gluconate 1 gm Magnesium Sulfate gm 1 gm Potassium Phosphate 9 mmol In Amino Acid 5%-D15w 1,000 ml @ 60 mls/hr IV .BY DURATION [facility] Rx#: [id number] Output: Drainage 110 225 0 Lower Left Abdomen 100 225 0 Medial Abdomen 10 0 Urine 1600 1100 Other: Voiding Method Indwelling Catheter Indwelling Catheter # Voids 0 ABP, PAP, CO, CI - Last Documented Arterial Blood Pressure 90/59 - Constitutional General appearance: Present: cooperative, no acute distress - EENT Eyes: Present: PERRLA - Neck Neck: Present: normal ROM. Absent: lymphadenopathy, rigidity - Respiratory Respiratory: bilateral: diminished - Cardiovascular Heart sounds: normal: S1, S2 - Gastrointestinal General gastrointestinal: Present: soft - Integumentary Integumentary: Present: normal, normal turgor - Musculoskeletal Musculoskeletal: Present: generalized weakness - Psychiatric Psychiatric: Present: A&O x's 3 - Labs CBC & Chem 7: 04/23/24 14:32 04/23/24 03:37 Labs: Abnormal Lab Results - Last 24 Hours (Table) 04/23/24 04/23/24 04/23/24 Range/Units 11:50 14:32 16:58 WBC 17.2 H (3.8-10.6) k/uL RBC 3.19 L (3.80-5.40) m/uL Hgb 9.6 L (11.4-16.0) gm/dL Hct 29.3 L (34.0-46.0) % RDW 15.8 H (11.5-15.5) % POC Glucose (mg/dL) 251 H 198 H (70-110) mg/dL 04/23/24 04/23/24 04/24/24 Range/Units 20:58 23:59 06:14 WBC (3.8-10.6) k/uL RBC (3.80-5.40) m/uL Hgb (11.4-16.0) gm/dL Hct (34.0-46.0) % RDW (11.5-15.5) % POC Glucose (mg/dL) 185 H 222 H 202 H (70-110) mg/dL Microbiology - Last 24 Hours (Table) 04/18/24 14:40 Blood Culture - Final Blood Assessment and Plan (1) Dehydration Current Visit: Yes Status: Acute Code(s): E86.0 - DEHYDRATION SNOMED Code (s): 57397016 (2) Acute kidney injury Current Visit: Yes Status: Acute Code(s): N17.9 - ACUTE KIDNEY FAILURE, UNSPECIFIED SNOMED Code(s): 01967991 (3) Hematoma of spleen without rupture of capsule Current Visit: Yes Status: Acute Code(s): D73.5 - INFARCTION OF SPLEEN SNOMED Code(s): 943007353 (4) Fall Current Visit: No Status: Acute Code(s): W19.XXXA - UNSPECIFIED FALL, INITIAL ENCOUNTER SNOMED Code(s): 9963517 (5) Ribs, multiple fractures Current Visit: No Status: Acute Code(s): S22.49XA - MULTIPLE FRACTURES OF R IBS, UNSP SIDE, INIT FOR CLOS FX SNOMED Code(s): 2556423 (6) Perforated duodenal ulcer Current Visit: Yes Status: Acute Code(s): K26.5 - CHRONIC OR UNSPECIFIED DUODENAL ULCER WITH PERFORATION SNOMED Code(s): 06869523 Plan: Appreciate multiple consultants. Await recommendations from surgeon regarding hemoglobin and black stool. Await repeat hemoglobin today. Check CBC and CMP in the morning. Patient seen and evaluated by nurse practitioner, physician in agreement with plan
[2024-04-24 09:24] LABS: HCT 31.1 % (34.0-46.0); HGB 9.7 gm/dL (11.4-16.0); Hypochromasia Slight; MCH 29.5 pg (25.0-35.0); MCHC 31.2 g/dL (31.0-37.0); MCV 94.8 fL (80.0-100.0); Platelet Count 495 k/uL (150-450); RBC 3.28 m/uL (3.80-5.40); RDW 15.9 % (11.5-15.5); WBC 11.6 k/uL (3.8-10.6)
[2024-04-24 10:10] LABS: African American GFR (CKD) 56 (>60 ml/min/1.73 sqM); Anion Gap 7 mmol/L; Blood Urea Nitrogen 44 mg/dL (7-17); Calcium 8.5 mg/dL (8.4-10.2); Carbon Dioxide 25 mmol/L (22-30); Chloride 104 mmol/L (98-107); Glucose 163 mg/dL (74-99); Magnesium 2.1 mg/dL (1.6-2.3); Non-African American GFR(CKD) 48 (>60 ml/min/1.73 sqM); Phosphorus 3.3 mg/dL (2.5-4.5); Potassium 4.4 mmol/L (3.5-5.1); Sodium 136 mmol/L (137-145)
[2024-04-24] MEDS: VANCOMYCIN TROUGH DUE 1 EACH MISC MISCELLANE ONE (11:00)
[2024-04-24 12:03] LABS: Glucose,Whole Blood 183 mg/dL (70-110)
--- NOTE | 2024-04-24 12:23 | P.PN ---
Subjective Progress Note Date: 04/24/24 Principal diagnosis: Reason for follow-up is perforated duodenal ulcer/peritonitis Patient is a 88-year-old female presenting to the hospital abdominal pain diagnosed with the pneumoperitoneum secondary to the perforated jejunal ulcer status post laparotomy and modified Lee patch.Patient is status post reexploration with Billroth II gastrectomy with Myles-en-Y reconstruction completed on 04/12/2024 On today's evaluation that is 04/24/2024, Patient is afebrile this morning and denies any chills, patient mention breathing comfortably and is currently on 2 L current oxygen patient denies any chest pain occasional cough patient denies any abdominal pain no diarrhea no nausea no vomiting. Patient white count is 11.6 creatinine 1.03 Objective - Vital Signs Vital signs: Vital Signs Temp 97.5 F L 04/24/24 07:10 Pulse 68 04/24/24 07:10 Resp 17 04/24/24 07:10 BP 129/56 04/24/24 07:10 Pulse Ox 96 04/24/24 07:10 FiO2 70 04/18/24 14:00 Intake & Output 04/23/24 04/24/24 04/24/24 18:59 06:59 18:59 Intake Total 1066 Output Total 1710 1325 0 Balance -644 -1325 0 Weight 59 kg Intake: Intake, IV Titration 1066 Amount Mvi, Adult No.4 with Vit 1066 K 10 ml Trace (Conc-1Ml/ Dose) 1 ml Sodium Acetate 40 meq Potassium Chloride 40 meq Calcium Gluconate 1 gm Magnesium Sulfate gm 1 gm Potassium Phosphate 9 mmol In Amino Acid 5%-D15w 1,000 ml @ 60 mls/hr IV .BY DURATION [facility] Rx#: [id number] Output: Drainage 110 225 0 Lower Left Abdomen 100 225 0 Medial Abdomen 10 0 Urine 1600 1100 Other: Voiding Method Indwelling Catheter Indwelling Catheter # Voids 0 ABP, PAP, CO, CI - Last Documented Arterial Blood Pressure 90/59 - Exam GENERAL DESCRIPTION: An elderly female lying in bed in no distress RESPIRATORY SYSTEM: Unlabored breathing , decreased breath sounds at bases HEART: S1 S2 regular rate and rhythm , ABDOMEN: Soft , mild tenderness EXTREMITIES: No edema feet - Labs CBC & Chem 7: 04/24/24 08:48 04/24/24 08:36 Labs: Abnormal Lab Results - Last 24 Hours (Table) 04/23/24 04/23/24 04/23/24 Range/Units 14:32 16:58 20:58 WBC 17.2 H (3.8-10.6) k/uL RBC 3.19 L (3.80-5.40) m/uL Hgb 9.6 L (11.4-16.0) gm/dL Hct 29.3 L (34.0-46.0) % RDW 15.8 H (11.5-15.5) % Plt Count (150-450) k/uL Sodium (137-145) mmol/L BUN (7-17) mg/dL Glucose (74-99) mg/dL POC Glucose (mg/dL) 198 H 185 H (70-110) mg/dL 04/23/24 04/24/24 04/24/24 Range/Units 23:59 06:14 08:36 WBC (3.8-10.6) k/uL RBC (3.80-5.40) m/uL Hgb (11.4-16.0) gm/dL Hct (34.0-46.0) % RDW (11.5-15.5) % Plt Count (150-450) k/uL Sodium 136 L (137-145) mmol/L BUN 44 H (7-17) mg/dL Glucose 163 H (74-99) mg/dL POC Glucose (mg/dL) 222 H 202 H (70-110) mg/dL 04/24/24 04/24/24 Range/Units 08:48 12:02 WBC 11.6 H (3.8-10.6) k/uL RBC 3.28 L (3.80-5.40) m/uL Hgb 9.7 L (11.4-16.0) gm/dL Hct 31.1 L (34.0-46.0) % RDW 15.9 H (11.5-15.5) % Plt Count 495 H (150-450) k/uL Sodium (137-145) mmol/L BUN (7-17) mg/dL Glucose (74-99) mg/dL POC Glucose (mg/dL) 183 H (70-110) mg/dL Microbiology - Last 24 Hours (Table) 04/18/24 14:40 Blood Culture - Final Blood Assessment and Plan (1) Peritonitis Current Visit: Yes Status: Acute Code(s): K65.9 - PERITONITIS, UNSPECIFIED SNOMED Code(s): 43043380 (2) Leukocytosis Current Visit: Yes Status: Acute Code(s): D72.829 - ELEVATED WHITE BLOOD CELL COUNT, UNSPECIFIED SNOMED Code(s): 942451928 (3) Perforated duodenal ulcer Current Visit: Yes Status: Acute Code(s): K26.5 - CHRONIC OR UNSPECIFIED DUODENAL ULCER WITH PERFORATION SNOMED Code(s): 42190201 Plan: 1patient presented to hospital with abdominal pain constipation has been diagnosed with the pneumoperitoneum secondary to perforated duodenal ulcer status post laparotomy and repair of the perforated jejunal ulcer we will need to cover for gram-negative and yeast. 2patient did have upper GI that was suspicious for leak patient is status post reexploration with Billroth II gastrectomy with Myles-en-Y reconstruction along with abdominal cultures which are so far negative 3-patient is afebrile white count is trending down to 11.3 today 4-patient currently be treated with Zosyn and Eraxis, will transition to oral antibiotics on discharge and monitor clinical course closely Dictation was produced using [employer] dictation software. please excuse any grammatical, word or spelling errors. Time with Patient: Less than 30
--- NOTE | 2024-04-24 12:36 | P.PN ---
Subjective Patient is seen for follow-up for acute kidney injury. Serum creatinine staying at about 1.1-1.0 mg/dL. maintained on oral Lasix. Receiving TPN. No significant complaints today. Walters catheter was removed this morning. Objective - Vital Signs Vital signs: Vital Signs Temp 97.5 F L 04/24/24 07:10 Pulse 68 04/24/24 07:10 Resp 17 04/24/24 07:10 BP 129/56 04/24/24 07:10 Pulse Ox 96 04/24/24 07:10 FiO2 70 04/18/24 14:00 Intake & Output 04/23/24 04/24/24 04/24/24 18:59 06:59 18:59 Intake Total 1066 Output Total 1710 1325 0 Balance -644 -1325 0 Weight 59 kg Intake: Intake, IV Titration 1066 Amount Mvi, Adult No.4 with Vit 1066 K 10 ml Trace (Conc-1Ml/ Dose) 1 ml Sodium Acetate 40 meq Potassium Chloride 40 meq Calcium Gluconate 1 gm Magnesium Sulfate gm 1 gm Potassium Phosphate 9 mmol In Amino Acid 5%-D15w 1,000 ml @ 60 mls/hr IV .BY DURATION [facility] Rx#: [id number] Output: Drainage 110 225 0 Lower Left Abdomen 100 225 0 Medial Abdomen 10 0 Urine 1600 1100 Other: Voiding Method Indwelling Catheter Indwelling Catheter # Voids 0 ABP, PAP, CO, CI - Last Documented Arterial Blood Pressure 90/59 - Exam patient is awake, comfortable, in no acute distress. Examination of the heart S1 and S2 Examination of the lungs decreased breath sounds at the bases Abdomen is soft Examination lower extremity shows trace edema, mostly left leg - Labs CBC & Chem 7: 04/24/24 08:48 04/24/24 08:36 Labs: Abnormal Lab Results - Last 24 Hours (Table) 04/23/24 04/23/24 04/23/24 Range/Units 14:32 16:58 20:58 WBC 17.2 H (3.8-10.6) k/uL RBC 3.19 L (3.80-5.40) m/uL Hgb 9.6 L (11.4-16.0) gm/dL Hct 29.3 L (34.0-46.0) % RDW 15.8 H (11.5-15.5) % Plt Count (150-450) k/uL Sodium (137-145) mmol/L BUN (7-17) mg/dL Glucose (74-99) mg/dL POC Glucose (mg/dL) 198 H 185 H (70-110) mg/dL 04/23/24 04/24/24 04/24/24 Range/Units 23:59 06:14 08:36 WBC (3.8-10.6) k/uL RBC (3.80-5.40) m/uL Hgb (11.4-16.0) gm/dL Hct (34.0-46.0) % RDW (11.5-15.5) % Plt Count (150-450) k/uL Sodium 136 L (137-145) mmol/L BUN 44 H (7-17) mg/dL Glucose 163 H (74-99) mg/dL POC Glucose (mg/dL) 222 H 202 H (70-110) mg/dL 04/24/24 04/24/24 Range/Units 08:48 12:02 WBC 11.6 H (3.8-10.6) k/uL RBC 3.28 L (3.80-5.40) m/uL Hgb 9.7 L (11.4-16.0) gm/dL Hct 31.1 L (34.0-46.0) % RDW 15.9 H (11.5-15.5) % Plt Count 495 H (150-450) k/uL Sodium (137-145) mmol/L BUN (7-17) mg/dL Glucose (74-99) mg/dL POC Glucose (mg/dL) 183 H (70-110) mg/dL Microbiology - Last 24 Hours (Table) 04/18/24 14:40 Blood Culture - Final Blood Assessment and Plan Assessment: 1. Acute kidney injury, ATN currently nonoliguric. Improved and stable. UA is quite benign. No evidence of obstruction on CT of the abdomen. 2. Non-gap metabolic acidosis secondary to acute kidney injury. 3. Perforated duodenal ulcer status post explorative laparotomy with tato p atch on 04/09/2024. Patient had re exploration for leak around the Tato patch on 04/12/2024 with Myles-en-Y reconstruction and Billroth II gastrectomy 4. Status post fall with rib fractures 5. A. fib with RVR maintained on amiodarone Plan: continue with TPN as per surgery Continue Lasix, it has been switched to oral Monitor for urine retention Repeat labs in a.m.
--- NOTE | 2024-04-24 13:42 | P.PN ---
Subjective Progress Note Date: 04/24/24 Principal diagnosis: Perforated duodenal ulcer Events of the last several days noted. Patient is out of the ICU now. Denies pain. No nausea or vomiting. Had an episode of vomiting however on Wednesday. Tolerating full liquids currently. Asking for more to eat. Appetite is low. She is afebrile. White blood cell count improved. Objective - Vital Signs Vital signs: Vital Signs Temp 97.5 F L 04/24/24 07:10 Pulse 72 04/24/24 12:42 Resp 17 04/24/24 07:10 BP 129/56 04/24/24 07:10 Pulse Ox 96 04/24/24 07:10 FiO2 70 04/18/24 14:00 Intake & Output 04/23/24 04/24/24 04/24/24 18:59 06:59 18:59 Intake Total 1066 Output Total 1710 1325 0 Balance -644 -1325 0 Weight 59 kg 59 kg Intake: Intake, IV Titration 1066 Amount Mvi, Adult No.4 with Vit 1066 K 10 ml Trace (Conc-1Ml/ Dose) 1 ml Sodium Acetate 40 meq Potassium Chloride 40 meq Calcium Gluconate 1 gm Magnesium Sulfate gm 1 gm Potassium Phosphate 9 mmol In Amino Acid 5%-D15w 1,000 ml @ 60 mls/hr IV .[facility] Rx#: [id number] Output: Drainage 110 225 0 Lower Left Abdomen 100 225 0 Medial Abdomen 10 0 Urine 1600 1100 Other: Voiding Method Indwelling Catheter Indwelling Catheter # Voids 0 ABP, PAP, CO, CI - Last Documented Arterial Blood Pressure 90/59 - Exam Abdomen: Soft, nondistended, dressing clean and dry, both drains serous, nontender - Labs CBC & Chem 7: 04/24/24 08:48 04/24/24 08:36 Labs: Abnormal Lab Results - Last 24 Hours (Table) 04/23/24 04/23/24 04/23/24 Range/Units 14:32 16:58 20:58 WBC 17.2 H (3.8-10.6) k/uL RBC 3.19 L (3.80-5.40) m/uL Hgb 9.6 L (11.4-16.0) gm/dL Hct 29.3 L (34.0-46.0) % RDW 15.8 H (11.5-15.5) % Plt Count (150-450) k/uL Sodium (137-145) mmol/L BUN (7-17) mg/dL Glucose (74-99) mg/dL POC Glucose (mg/dL) 198 H 185 H (70-110) mg/dL 04/23/24 04/24/24 04/24/24 Range/Units 23:59 06:14 08:36 WBC (3.8-10.6) k/uL RBC (3.80-5.40) m/uL Hgb (11.4-16.0) gm/dL Hct (34.0-46.0) % RDW (11.5-15.5) % Plt Count (150-450) k/uL Sodium 136 L (137-145) mmol/L BUN 44 H (7-17) mg/dL Glucose 163 H (74-99) mg/dL POC Glucose (mg/dL) 222 H 202 H (70-110) mg/dL 04/24/24 04/24/24 Range/Units 08:48 12:02 WBC 11.6 H (3.8-10.6) k/uL RBC 3.28 L (3.80-5.40) m/uL Hgb 9.7 L (11.4-16.0) gm/dL Hct 31.1 L (34.0-46.0) % RDW 15.9 H (11.5-15.5) % Plt Count 495 H (150-450) k/uL Sodium (137-145) mmol/L BUN (7-17) mg/dL Glucose (74-99) mg/dL POC Glucose (mg/dL) 183 H (70-110) mg/dL Microbiology - Last 24 Hours (Table) 04/18/24 14:40 Blood Culture - Final Blood Assessment and Plan (1) Perforated duodenal ulcer Narrative/Plan: Patient continues to gradually improve. She has been having some intermittent black-colored stools and had a drop in hemoglobin. Hemoglobin currently stable. 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 Will increase diet. Continue antiacids. Current Visit: Yes Status: Acute Code(s): K26.5 - CHRONIC OR UNSPECIFIED DUODENAL ULCER WITH PERFORATION SNOMED Code(s): 85365483
--- NOTE | 2024-04-24 14:34 | P.PN ---
Subjective Progress Note Date: 04/24/24 This is an 88-year-old female, recent history of fall about 2 weeks ago, sustained bruising to her left ribs. Patient was brought in yesterday to the ER mostly with symptoms of weakness, failure to thrive, poor oral intake, and suspected dehydration. Patient was also complaining of cough and shortness of breath, no fever no chills, no nausea no vomiting. In addition the patient had no bowel movement for the last 4 days. Apparently the patient has been experiencing intermittent episodes of confusion for the last 1 year. Workup in the ER included a CT of the abdomen and pelvis, it showed pneumoperitoneum and free fluid. Patient was felt that she has ruptured viscus, she was seen by surgery and she underwent exploratory laparotomy for her pneumoperitoneum, and she was found to have perforated duodenal ulcer. Patient had modified Lee patch and postoperatively the patient was extubated nonetheless she was admitted to the ICU, and this consult was initiated. I saw the patient in the ICU this morning, she is on 4 L nasal cannula, does not seem to be in any distress. She is already on Zosyn, and I added Diflucan. She is on LR at 125 cc/h. Her WBC count is 28.6, electrolytes are normal hemoglobin is 10.7 BUN is 97 creatinine down to 2.45 from 3.27 yesterday. Progress note dated April 10, 2024. 88-year-old female seen yesterday in consultation. She was admitted on April 08, with confusion and weakness. The patient had a repair of a perforated duodenal ulcer on April 09. Today is postop day #1. She is currently seen today in room 261. She is currently on 6 L of oxygen by nasal cannula. She has an NG tube in place. She is getting lactated Ringer's at 125 cc an hour. For atrial fibrillation with a rapid ventricular response, she was started on Cardizem drip at 5 mg an hour, and amiodarone 0.5 mg/min. No new labs today other than a glucose of 154. The labs from yesterday are reviewed. White count was 28.6. Hemoglobin 10.7, platelet count was normal. BUN and creatinine were 97 and 2.45. Chest x-ray suggested bilateral pleural effusions. Progress note dated April 11, 2024. 88-year-old female seen today in room 261. The patient was admitted on April 08, with confusion and weakness. The patient was discovered to have a perforated duodenal ulcer, and had a surgical repair performed on April 09. Today is postop day #2. The patient is currently without distress. She is on room air. NG tube remains in place. She is getting lactated Ringer's at 75 cc an hour. Because of atrial fibrillation and RVR, she continues on amiodarone 0.5 mg/min, and Cardizem at 5 mg an hour. Lab data includes a white count 34.6, hemoglobin 9.1, hematocrit 36.6, and a platelet count 442,000. Sodium 143, potassium 4.1, chlorides 113, CO2 23, BUN 71, creatinine 1.64. Glucose is 134. Albumin is 2.3. Blood cultures are currently negative. No chest x-ray today has been ordered. Progress note dated April 12, 2024. This is an 88-year-old female who is seen in room 261. The patient was admitted back on April 08, with confusion and weakness. She was discovered to have a perforated duodenal ulcer, and had surgical repair performed on April 09. Today is postoperative day #3. The patient is going to have a upper GI study today. She is getting lactated Ringer's at 75 cc an hour, 3 L of oxygen by nasal cannula, Cardizem at 5 mg an hour, and amiodarone at 0.5 mg/min. White count was 37.4, hemoglobin 11.6, hematocrit 38.5, and platelet count was normal. Sodium 145, potassium 3.2, chloride 115, CO2 24, BUN 52, creatinine 1.26. Glucose 123. Calcium 8.2. BUN 2.2. Blood cultures are currently negative. The patient's chest x-ray is stable, with some basilar atelectasis on the right. Upper GI study showed a leak, at the site of patch placement, in the duodenal bulb. Progress note dated April 13, 2024. 88-year-old female seen today in room 261. The patient is postop day #1, status post Billroth II gastrectomy, and Myles-en-Y reconstruction. The patient is currently on the ventilator. Ventilator settings include volume assist-control, rate 16, tidal volume 350, FiO2 40%, PEEP of 5. Blood gases show pO2 128, pCO2 34, pH is 7.43. The blood gases were done on 50% FiO2. The patient is on lactated Ringer's at 75 cc an hour, amiodarone 0.5 mg/min, Cardizem at 5 mg/h, and propofol, is restarted at a low rate. Current labs include a white count 34.8, hemoglobin 9.5, hematocrit 32.2, and a platelet count of 325,000. Sodium 141, potassium 4, chloride 114, CO2 21, BUN 48, creatinine 1.51. Glucose is 133. Calcium is 7. Blood cultures are negative. Chest x-ray shows in addition to endotracheal tube, and central venous line, blunting of the costophrenic angles. Progress note dated April 14, 2024. 88-year-old female seen today in room 261. She is postop day #2, status post Billroth II gastrectomy and Myles-en-Y reconstruction. The patient is on the ventilator. She was maintained on the ventilator overnight. Currently, the patient is on volume assist-control, rate 16, tidal volume 350, FiO2 30%, PEEP of 5. Blood gases show pO2 of 148, pCO2 33, pH is 7.42. Blood gases were done on 40%. The patient continues on amiodarone at 0.5 mg/min, lactated Ringer's at 75 cc an hour, propofol at 35 mcg/kg/min, and TPN at 30 cc an hour, to be increased to 55 cc an hour. Current white count is 25.2, hemoglobin 9.5, hematocrit 35.5, platelet count 362,000. Sodium 142, potassium 3.3, chlorides 112, CO2 25, BUN 50, creatinine 1.83. Albumin level was 1.9. Chest x-ray is largely unchanged. Progress note dated April 15, 2024. The patient is seen again in room 261. The patient was successfully extubated yesterday, April 14. She is currently on room air. She is receiving a saline IV at KVO, and TPN at 40 cc an hour. Current labs include a white count 18.1, hemoglobin 8.9, hematocrit 27.4, and a platelet count of 334,000. Sodium 140, potassium 3.9, chlorides 114, CO2 23, BUN 46, and creatinine 1.36. Glucose is 170. Calcium is 7.2. Phosphorus is 1.9. Magnesium is 2.0. Progress note dated April 16, 2024. The patient is seen today in room 261. She is currently on room air. She continues on amiodarone at 0.5 mg/min. She is getting TPN at 40 cc an hour, and saline at KVO. She does continue on Zosyn. All her cultures are thus far negative. She has no specific complaints today. According to the nurse, she is a bit anxious. Current labs include a sodium 139, potassium 3.9, chlorides 114, CO2 23, BUN 35, and creatinine 1.15. Glucose is 178. Calcium 7.5, phosphorus 2.3, and magnesium is normal. Culture data is negative. Venous Doppler yesterday, shows a superficial venous thrombosis involving the cephalic vein, of the left upper extremity. On today's evaluation of 04/17/2024, the patient is being seen for a follow-up. The patient is recovering from her abdominal surgery. The patient undergone exploratory laparotomy and repair of a perforated duodenal ulcer and she is postop day #8 subsequent the patient required a bit to gastrectomy and the patient is this morning, the patient has awake and alert and she is currently on med oxygen. She is in normal sinus rhythm. She is on TPN which is running at a rate of 40 cc an hour. She remains on IV Zosyn. She is using the incentive spirometer. The patient has 2 SHRUTHI drains. The medial drain has drained approximately 180 cc of serous material and the right lower abdominal drain has put out approximately 10 cc. She has had paroxysmal atrial fibrillation. She remains on amiodarone running at 0.5 mg/min. The white cell count is at 17 with a hemoglobin 9.1 and a platelet count of 431. BUN is 28 with a creatinine of 1. Electrolytes are normal limits. LFTs are normal. Blood sugar is at 183. The patient remains on empiric antibiotic coverage with IV Zosyn. She is being given oral diet today. Should be able also to take her oral medication. Surgical abdominal wound scar is dry clean and intact. He is alert and awake and communicating. 04/18/2024, the patient is on BiPAP. The patient decompensated overnight and became hypoxic. Chest x-ray was done and the patient was found to have large bilateral pleural effusion the patient was given Lasix. Noted the patient was on room air oxygen prior to her being transferred to the medical floor. At that point, the patient was placed on a BiPAP. She was started on the Lasix. This morning, she remains on BiPAP at a pressure of over 5 cm of water and FiO2 was brought up to 70%. No chest pain. She is awake and alert and she is producing adequate amount of urine output. The white cell count is currently up to On her blood work 38.9 with a hemoglobin of 9 and a platelet count of 443. BUN is 32 with a creatinine of 1.2 and sodium levels of 136. I repeated her blood work again and her white cell count is up to 40 with a hemoglobin of 8.8. The patient got transferred to the intensive care unit. Immediately, I performed an ultrasound of the chest that showed bilateral pleural effusion and thoracentesis of the right lung was done, pending follow-up chest x-ray and a total of 600 cc of pleural fluid aspirated from the right lung. Hemodynamically stable. No hypotension. Remains on TPN. Remains on IV Zosyn. Remains on Lasix 20 mg IV every 12 hours. Awake and alert and communicating. On today's evaluation of 04/19/2024, the patient seems to be more comfortable comp ared to yesterday. The patient is currently on 2 L of oxygen by nasal cannula. The patient was at the pulmonary edema and developed bilateral pleural effusions. The patient had a thoracentesis yesterday without any complication. A total of 650 cc of pleural fluid was aspirated from the right lung. A repeat chest x-ray from today showing improvement in the volume status. There is still increased interstitial markings bilaterally and small bilateral pleural effusions in the lung bases bilaterally. The patient remains on IV Lasix. The patient is producing adequate amount of urine output. Nevertheless, the fluid balance over the past 24 hours has been +500 cc. The patient remains on TPN for nutritional support. The patient is receiving TPN at a rate of 60 cc an hour. The patient is also on a combination of Zosyn and Eraxis, and vancomycin.. Oxygenation is improved and the patient is currently off the BiPAP and the patient currently is on 3 L of oxygen by nasal cannula. BUN is 40 with a creatinine of 1.2. Sodium level is 137, white cell count is improved is currently down to 21 with a hemoglobin of 7.5 and a platelet count of 393. No other significant events otherwise and the patient's condition is slightly more stable compared to yesterday. She is awake and alert and communicating. On 04/20/2024, the patient is being seen for a follow-up. The patient is doing well on 3 L of oxygen by nasal cannula. No significant respiratory distress. A follow-up chest x-ray was done today and showed improvement in volume status with small bilateral pleural effusion and some increased interstitial markings bilaterally. Nevertheless, the patient has been diuresed adequately and the patient is currently in negative fluid balance and the patient will be switched to oral Lasix. IV Lasix will be discontinued and the patient has been switched to 40 mg of Lasix on a daily basis. Remains on TPN for nutritional support. She did have a bloody bowel movement, unsure if it is melanotic. This will be monitored as the patient hemoglobin has remeasured at 8.7 on today's evaluation. The white cell count is 15.8. BUN is 48 with a creatinine 1.2 and sodium levels at 135 and a potassium level of 3.1. LFTs are all stable. Antibiotic coverage remains unchanged and the patient remains on a combination of Eraxis and Zosyn. Surgical wound site is dry clean and intact. Renal function remained stable On 04/21/2024, seen the patient for a follow-up. She is currently on room air oxygen. She is having some coffee-ground material in her mouth and I suspect ongoing GI bleed. Note that the patient's hemoglobin had dropped down to 6.6 and the patient does get transfused with packed RBC and a subsequent hemoglobin is up to 8.7 and currently is at 8.1. No acute evidence of any active upper GI bleeding. The patient is awake and alert and communicating. She remains on TPN for nutritional support. Surgical scars are dry clean and intact. Antibiotic coverage with IV Zosyn and Eraxis per IDs recommendations. As mentioned, the patient is postthoracentesis. The patient is currently on diuretics and the patient receiving Lasix 40 mg p.o. daily.. The patient is on room air oxygen. No other significant events overnight. 04/22/2024, the patient is suspected to have some ongoing low-grade GI bleed. She is still having some black stools and coughing out some coffee-ground material. Hemoglobin is at 7.1. Noted that hemoglobin has dropped slightly compared to yesterday is down from 8.1. Respiratory status is stable. She is on 2 L of O2 nasal cannula. Pulse ox 96%. Platelet count is at 397. Remains appropriate for oxygen support. Creatinine is stable at 1.2. BUN is 52 with a sodium of 135. No other significant events overnight. Remains alert and awake and communicating. No confusion. No altered mentation. 04/23/2024, the patient had another bloody neurologic bowel movement that she is coughing out coffee-ground material. I suspect ongoing GI bleed. Noted the repeat hemoglobin from yesterday was at 6.5. The patient was given a unit of packed RBC and the hemoglobin is currently at 9. Platelet counts are stable. Abdominal exam is stable. Creatinine is at 1.2 with a BUN of 53. Sodium is at 135. Repeat hemoglobin will be obtained. She remains on TPN for nutritional support. Overall respiratory status is stable. The patient is currently on 2 L of oxygen by nasal cannula with a pulse ox of 94%. General surgery is on the case. 2023 in follow-up on the regular medical floor. She is currently sitting up in a chair. Awake and alert in no acute distress. She is maintaining O2 saturations in the 90s on 2 L/min per nasal cannula. She has been afebrile. Hemodynamically stable. White count 11.6. Hemoglobin 9.7. Platelets 495. Sodium 136. Potassium 4.4. Bicarb 25. BUN 44. Creatinine 1.03. Glucose 163. Vancomycin trough 13.9. She is status post 2 units of packed red blood cells this admission. She remains on TPN for nutritional support at 60 MLS per hour. She remains on Zosyn and Eraxis. Objective - Vital Signs Vital signs: Vital Signs Temp 97.9 F 04/24/24 13:12 Pulse 76 04/24/24 13:12 Resp 17 04/24/24 13:12 BP 130/71 04/24/24 13:12 Pulse Ox 96 04/24/24 13:12 FiO2 70 04/18/24 14:00 Intake & Output 04/23/24 04/24/24 04/24/24 18:59 06:59 18:59 Intake Total 1066 Output Total 1710 1325 0 Balance -644 -1325 0 Weight 59 kg 59 kg Intake: Intake, IV Titration 1066 Amount Mvi, Adult No.4 with Vit 1066 K 10 ml Trace (Conc-1Ml/ Dose) 1 ml Sodium Acetate 40 meq Potassium Chloride 40 meq Calcium Gluconate 1 gm Magnesium Sulfate gm 1 gm Potassium Phosphate 9 mmol In Amino Acid 5%-D15w 1,000 ml @ 60 mls/hr IV .BY DURATION FORMERLY [facility], [facility] Rx#: [id number] Output: Drainage 110 225 0 Lower Left Abdomen 100 225 0 Medial Abdomen 10 0 Urine 1600 1100 Other: Voiding Method Indwelling Catheter Indwelling Catheter # Voids 0 ABP, PAP, CO, CI - Last Documented Arterial Blood Pressure 90/59 - Exam GENERAL EXAM: Alert, pleasant, frail 88-year-old female, up in a chair, on 2 L nasal cannula, comfortable in no apparent distress. HEAD: Normocephalic. EYES: Normal reaction of pupils, equal size. NOSE: Clear with pink turbinates. THROAT: No erythema or exudates. NECK: No masses, no JVD. CHEST: No chest wall deformity. LUNGS: Equal air entry with no crackles, wheeze, rhonchi or dullness. CVS: S1 and S2 normal with no audible murmur, regular rhythm. ABDOMEN: Abdominal dressing dry and intact. SHRUTHI drains in place. Normal bowel sounds, no guarding or rigidity. SPINE: No scoliosis or deformity SKIN: No rashes CENTRAL NERVOUS SYSTEM: No focal deficits, tone is normal in all 4 extremities. EXTREMITIES: There is no peripheral edema. No clubbing, no cyanosis. Peripheral pulses are intact. - Labs CBC & Chem 7: 04/24/24 08:48 04/24/24 08:36 Labs: Abnormal Lab Results - Last 24 Hours (Table) 04/23/24 04/23/24 04/23/24 Range/Units 14:32 16:58 20:58 WBC 17.2 H (3.8-10.6) k/uL RBC 3.19 L (3.80-5.40) m/uL Hgb 9.6 L (11.4-16.0) gm/dL Hct 29.3 L (34.0-46.0) % RDW 15.8 H (11.5-15.5) % Plt Count (150-450) k/uL Sodium (137-145) mmol/L BUN (7-17) mg/dL Glucose (74-99) mg/dL POC Glucose (mg/dL) 198 H 185 H (70-110) mg/dL 04/23/24 04/24/24 04/24/24 Range/Units 23:59 06:14 08:36 WBC (3.8-10.6) k/uL RBC (3.80-5.40) m/uL Hgb (11.4-16.0) gm/dL Hct (34.0-46.0) % RDW (11.5-15.5) % Plt Count (150-450) k/uL Sodium 136 L (137-145) mmol/L BUN 44 H (7-17) mg/dL Glucose 163 H (74-99) mg/dL POC Glucose (mg/dL) 222 H 202 H (70-110) mg/dL 04/24/24 04/24/24 Range/Units 08:48 12:02 WBC 11.6 H (3.8-10.6) k/uL RBC 3.28 L (3.80-5.40) m/uL Hgb 9.7 L (11.4-16.0) gm/dL Hct 31.1 L (34.0-46.0) % RDW 15.9 H (11.5-15.5) % Plt Count 495 H (150-450) k/uL Sodium (137-145) mmol/L BUN (7-17) mg/dL Glucose (74-99) mg/dL POC Glucose (mg/dL) 183 H (70-110) mg/dL Microbiology - Last 24 Hours (Table) 04/18/24 14:40 Blood Culture - Final Blood Assessment and Plan Assessment: Acute hypoxic respiratory failure, recovered and the patient was extubated on 04/14/2024. The patient was room air oxygen and the patient got transferred to the medical floor to be readmitted back to the ICU the patient was weaned off the BiPAP and the patient is currently is on oxygen by nasal cannula Acute leukocytosis, rule out septic event. Possibility of anastomotic leak cannot be completely excluded. Currently on IV Zosyn, vancomycin and Eraxis. The white cell count is at 11.6 Acute on chronic anemia consider the possibility of an ongoing GI bleed as the patient is also coughing out some coffee-ground material. Status post 2 units of packed red blood cells. Current hemoglobin 9.7. Status post re-exploration on April 12, 2024 with Billroth II gastrectomy, and Myles-en-Y reconstruction. The patient remains on TPN for nutritional support. Status post exploratory laparotomy, April 09, 2024 repair of perforated duodenal ulcer, and application of a modified Lee patch. Upper GI series, showing leak, at the site of the modified Lee patch. Acute abdominal sepsis, secondary to above and the patient is currently on IV Zosyn, vancomycin and Eraxis Acute atrial fibrillation, with rapid ventricular response. The cardiac rhythm is back to sinus and the patient oral amiodarone History of splenic hematoma, without rupture. The patient is currently on no anticoagulants Acute dehydration with acute kidney injury. Recovered and the patient renal function is normal Nonanion gap metabolic acidosis, recovered Hypovolemic hyponatremia, recovered. General medical debility. Plan: The patient was seen and evaluated Labs and medications reviewed Being nourished with TPN and lipids Diet being advanced per surgery Titrate down the FiO2 as tolerated Encourage increased use of the incentive spirometer Increase her activity as tolerated We will continue to follow I have personally seen and examined the patient, performed the documentation and the assessment and plan as written. Number of minutes spent on the visit: 10.
[2024-04-24 16:52] LABS: Glucose,Whole Blood 158 mg/dL (70-110)
[2024-04-24] MEDS: PIPERACILLIN-TAZOBACTAM 3.375 GM in SODIUM CHLORIDE 0.9% 100 ML IVPB SCH (17:25)
[2024-04-24 23:32] LABS: Glucose,Whole Blood 194 mg/dL (70-110)
[2024-04-25 06:30] LABS: Glucose,Whole Blood 189 mg/dL (70-110)
--- NOTE | 2024-04-25 08:24 | P.PN ---
Subjective Progress Note Date: 04/25/24 This is an 80-year-old female with a history of a recent fall about 2 weeks ago who was brought into the emergency department with complaints of weakness and poor oral intake. Patient had an exploratory laparotomy and was found to have a perforated duodenal ulcer with a Lee patch placed. She remains in ICU. She is alert and oriented. She is still significantly weak. 04/11/2024 Patient seen and evaluated sitting in chair at bedside this morning. Yesterday had a salvador catheter placed by urology. Patient reports she is very sore today. 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 Valencia. Patient tolerated well. She remains on mechanical ventilation. 04/17/2024 Patient seen this morning laying in bed comfortably. She remains off of mechanical ventilation. She is still NPO and is on TPN. She reports pain is controlled. 04/18/2024 Patient seen this morning laying in bed with BiPAP on. She does report a little more pain today. She still remains on TPN, however a clear liquid diet has been ordered. 04/24/2024 Patient seen and evaluated this morning sitting up in chair at bedside. She remains on 2 L of oxygen via nasal cannula. She remains on TPN and a full liquid diet. Over the weekend hemoglobin dropped to 6.5 and patient received 1 unit of packed red blood cells. Repeat hemoglobin yesterday was 9.6. Labs pending for today. Patient is still quite weak and does not have much of an appetite. Nursing staff does note patient continues to have liquid black stool and is coughing up black and harris sputum. 04/25/2024 Patient seen and evaluated laying in bed this morning. Salvador was removed yesterday and patient has had high PVR's and patient has been more anxious. Oralia sing waiting to hear back from urology. Hemoglobin stable yesterday, labs for today not back at time of dictation. Surgeon advanced patient's diet yesterday. Vitals are stable. Nurse reports patient is still having black stool. Objective - Vital Signs Vital signs: Vital Signs Temp 97.8 F 04/25/24 07:13 Pulse 87 04/25/24 07:13 Resp 18 04/25/24 07:13 BP 162/68 04/25/24 07:13 Pulse Ox 92 L 04/25/24 07:13 FiO2 70 04/18/24 14:00 Intake & Output 04/24/24 04/25/24 04/25/24 18:59 06:59 18:59 Intake Total 1055 1066 Output Total 40 1165 Balance 1015 -99 Weight 59 kg 59.5 kg Intake: Intake, IV Titration 1055 1066 Amount Mvi, Adult No.4 with Vit 1066 K 10 ml Trace (Conc-1Ml/ Dose) 1 ml Sodium Acetate 40 meq Potassium Chloride 40 meq Calcium Gluconate 1 gm Magnesium Sulfate gm 1 gm Potassium Phosphate 9 mmol In Amino Acid 5%-D15w 1,000 ml @ 60 mls/hr IV .BY DURATION [facility] Rx#: [id number] Sodium Acetate 40 meq 1055 Potassium Chloride 40 meq Calcium Gluconate 1 gm Magnesium Sulfate gm 1 gm Potassium Phosphate 9 mmol In Amino Acid 5%- D15w 1,000 ml @ 60 mls/hr IV .BY DURATION [facility] Rx#: [id number] Output: Drainage 40 65 Lower Left Abdomen 40 55 Medial Abdomen 0 10 Urine 200 Post Void Residual 900 Other: Voiding Method External Catheter # Voids 2 1 # Bowel Movements 1 ABP, PAP, CO, CI - Last Documented Arterial Blood Pressure 90/59 - Constitutional General appearance: Present: cooperative, no acute distress - EENT Eyes: Present: PERRLA - Neck Neck: Present: normal ROM. Absent: lymphadenopathy, rigidity - Respiratory Respiratory: bilateral: diminished - Cardiovascular Heart sounds: normal: S1, S2 - Gastrointestinal General gastrointestinal: Present: soft - Integumentary Integumentary: Present: normal, normal turgor - Musculoskeletal Musculoskeletal: Present: generalized weakness - Psychiatric Psychiatric: Present: A&O x's 3 - Labs CBC & Chem 7: 04/24/24 08:48 04/24/24 08:36 Labs: Abnormal Lab Results - Last 24 Hours (Table) 04/24/24 04/24/24 04/24/24 Range/Units 08:36 08:48 12:02 WBC 11.6 H (3.8-10.6) k/uL RBC 3.28 L (3.80-5.40) m/uL Hgb 9.7 L (11.4-16.0) gm/dL Hct 31.1 L (34.0-46.0) % RDW 15.9 H (11.5-15.5) % Plt Count 495 H (150-450) k/uL Sodium 136 L (137-145) mmol/L BUN 44 H (7-17) mg/dL Glucose 163 H (74-99) mg/dL POC Glucose (mg/dL) 183 H (70-110) mg/dL 04/24/24 04/24/24 04/25/24 Range/Units 16:50 23:30 06:29 WBC (3.8-10.6) k/uL RBC (3.80-5.40) m/uL Hgb (11.4-16.0) gm/dL Hct (34.0-46.0) % RDW (11.5-15.5) % Plt Count (150-450) k/uL Sodium (137-145) mmol/L BUN (7-17) mg/dL Glucose (74-99) mg/dL POC Glucose (mg/dL) 158 H 194 H 189 H (70-110) mg/dL Assessment and Plan (1) Dehydration Current Visit: Yes Status: Acute Code(s): E86.0 - DEHYDRATION SNOMED Code(s): 48434551 (2) Acute kidney injury Current Visit: Yes Status: Acute Code(s): N17.9 - ACUTE KIDNEY FAILURE, UNSPECIFIED SNOMED Code(s): 16897075 (3) Hematoma of spleen without rupture of capsule Current Visit: Yes Status: Acute Code(s): D73.5 - INFARCTION OF SPLEEN SNOMED Code(s): 522237223 (4) Fall Current Visit: No Status: Acute Code(s): W19.XXXA - UNSPECIFIED FALL, INITIAL ENCOUNTER SNOMED Code(s): 1981480 (5) Ribs, multiple fractures Current Visit: No Status: Acute Code(s): S22.49XA - MULTIPLE FRACTURES OF RIBS, UNSP SIDE, INIT FOR CLOS FX SNOMED Code(s): 7009492 (6) Perforated duodenal ulcer Current Visit: Yes Status: Acute Code(s): K26.5 - CHRONIC OR UNSPECIFIED DUODENAL ULCER WITH PERFORATION SNOMED Code(s): 32768190 Plan: Check labs in the morning Will discontinue lasix for now. Patient may need Salvador again, await recommendations from urology. Patient seen and evaluated by nurse practitioner, physician in agreement with plan
--- NOTE | 2024-04-25 08:57 | P.PN ---
Subjective Progress Note Date: 04/25/24 Patient postvoid residual continues to trend upward, she is having symptomatic lower abdominal pain secondary to her urinary retention Objective - Vital Signs Vital signs: Vital Signs Temp 97.8 F 04/25/24 07:13 Pulse 87 04/25/24 08:48 Resp 18 04/25/24 07:13 BP 162/68 04/25/24 07:13 Pulse Ox 95 04/25/24 08:48 FiO2 70 04/18/24 14:00 Intake & Output 04/24/24 04/25/24 04/25/24 18:59 06:59 18:59 Intake Total 1055 1066 Output Total 40 1165 Balance 1015 -99 Weight 59 kg 59.5 kg Intake: Intake, IV Titration 1055 1066 Amount Mvi, Adult No.4 with Vit 1066 K 10 ml Trace (Conc-1Ml/ Dose) 1 ml Sodium Acetate 40 meq Potassium Chloride 40 meq Calcium Gluconate 1 gm Magnesium Sulfate gm 1 gm Potassium Phosphate 9 mmol In Amino Acid 5%-D15w 1,000 ml @ 60 mls/hr IV .BY D[facility]ATION [facility] Rx#: [id number] Sodium Acetate 40 meq 1055 Potassium Chloride 40 meq Calcium Gluconate 1 gm Magnesium Sulfate gm 1 gm Potassium Phosphate 9 mmol In Amino Acid 5%- D15w 1,000 ml @ 60 mls/hr IV .BY DURATION [facility] Rx#: [id number] Output: Drainage 40 65 Lower Left Abdomen 40 55 Medial Abdomen 0 10 Urine 200 Post Void Residual 900 Other: Voiding Method External Catheter # Voids 2 1 # Bowel Movements 1 ABP, PAP, CO, CI - Last Documented Arterial Blood Pressure 90/59 - Labs CBC & Chem 7: 04/24/24 08:48 04/24/24 08:36 Labs: Abnormal Lab Results - Last 24 Hours (Table) 04/24/24 04/24/24 04/24/24 Range/Units 08:36 08:48 12:02 WBC 11.6 H (3.8-10.6) k/uL RBC 3.28 L (3.80-5.40) m/uL Hgb 9.7 L (11.4-16.0) gm/dL Hct 31.1 L (34.0-46.0) % RDW 15.9 H (11.5-15.5) % Plt Count 495 H (150-450) k/uL Sodium 136 L (137-145) mmol/L BUN 44 H (7-17) mg/dL Glucose 163 H (74-99) mg/dL POC Glucose (mg/dL) 183 H (70-110) mg/dL 04/24/24 04/24/24 04/25/24 Range/Units 16:50 23:30 06:29 WBC (3.8-10.6) k/uL RBC (3.80-5.40) m/uL Hgb (11.4-16.0) gm/dL Hct (34.0-46.0) % RDW (11.5-15.5) % Plt Count (150-450) k/uL Sodium (137-145) mmol/L BUN (7-17) mg/dL Glucose (74-99) mg/dL POC Glucose (mg/dL) 158 H 194 H 189 H (70-110) mg/dL Assessment and Plan Assessment: 88-year-old female with postoperative urinary retention, 12 [address] Walters c atheter was placed by me on April 10, catheter was removed yesterday patient has been able to void small amounts but her postvoid residual has continued to trend up were, she is now symptomatic with a PVR of 900 -Reinsert Walters catheter -Continue flomax
[2024-04-25 10:12] LABS: HCT 31.7 % (34.0-46.0); HGB 9.5 gm/dL (11.4-16.0); Hypochromasia Slight; MCH 29.1 pg (25.0-35.0); MCHC 30.1 g/dL (31.0-37.0); MCV 96.9 fL (80.0-100.0); Macrocytosis Slight; Mean Platelet Volume 8.4; Platelet Count 490 k/uL (150-450); RBC 3.27 m/uL (3.80-5.40); RDW 15.8 % (11.5-15.5); WBC 11.5 k/uL (3.8-10.6)
[2024-04-25 10:26] LABS: ALT 30 U/L (4-34); AST 33 U/L (14-36); African American GFR (CKD) 51 (>60 ml/min/1.73 sqM); Albumin 2.5 g/dL (3.5-5.0); Alkaline Phosphatase 101 U/L (38-126); Anion Gap 7 mmol/L; Blood Urea Nitrogen 40 mg/dL (7-17); Calcium 8.4 mg/dL (8.4-10.2); Carbon Dioxide 24 mmol/L (22-30); Chloride 102 mmol/L (98-107); Globulin 2.6 g/dL; Glucose 165 mg/dL (74-99); Magnesium 1.9 mg/dL (1.6-2.3); Non-African American GFR(CKD) 45 (>60 ml/min/1.73 sqM); Phosphorus 3.9 mg/dL (2.5-4.5); Potassium 4.1 mmol/L (3.5-5.1); Sodium 133 mmol/L (137-145); Total Bilirubin 0.6 mg/dL (0.2-1.3); Total Protein 5.1 g/dL (6.3-8.2)
[2024-04-25 11:30] LABS: Glucose,Whole Blood 166 mg/dL (70-110)
[2024-04-25 11:52] LABS: Appearance,Urine Clear (Clear); Bilirubin,Urine Negative (Negative); Blood,Urine Small (Negative); Color,Urine Colorless; Glucose,Urine (UA) Negative (Negative); Hyaline Casts,Urine 1 /lpf (0-2); Ketones,Urine Negative (Negative); Leukocyte Esterase,Urine Negative (Negative); Nitrite,Urine Negative (Negative); PH, Urine 6.5 (5.0-8.0); Protein,Urine Negative (Negative); RBC,Urine 4 /hpf (0-5); Specific Gravity,Urine 1.011 (1.001-1.035); Squamous Epithelial Cell,Urine 1 /hpf (0-4); Urobilinogen,Urine <2.0 mg/dL (<2.0); WBC,Urine <1 /hpf (0-5)
--- NOTE | 2024-04-25 12:47 | P.PN ---
Subjective Progress Note Date: 04/25/24 Principal diagnosis: Reason for follow-up is perforated duodenal ulcer/peritonitis Patient is a 88-year-old female presenting to the hospital abdominal pain diagnosed with the pneumoperitoneum secondary to the perforated jejunal ulcer status post laparotomy and modified Lee patch.Patient is status post reexploration with Billroth II gastrectomy with Myles-en-Y reconstruction completed on 04/12/2024 On today's evaluation that is 04/25/2024,the patient denies any fever or any chills, patient is breathing comfortably on 2 L current oxygen the patient denies chest pain shortness of breath and no significant cough, no vomiting or diarrhea reported by nursing staff did not have any retention requiring placement of the Walters catheter. Patient white count is 11.5 creatinine is 1.10 Objective - Vital Signs Vital signs: Vital Signs Temp 97.8 F 04/25/24 07:13 Pulse 85 04/25/24 09:01 Resp 18 04/25/24 07:13 BP 162/68 04/25/24 07:13 Pulse Ox 95 04/25/24 08:48 FiO2 70 04/18/24 14:00 Intake & Output 04/24/24 04/25/24 04/25/24 18:59 06:59 18:59 Intake Total 1055 1066 Output Total 40 1165 Balance 1015 -99 Weight 59 kg 59.5 kg Intake: Intake, IV Titration 1055 1066 Amount Mvi, Adult No.4 with Vit 1066 K 10 ml Trace (Conc-1Ml/ Dose) 1 ml Sodium Acetate 40 meq Potassium Chloride 40 meq Calcium Gluconate 1 gm Magnesium Sulfate gm 1 gm Potassium Phosphate 9 mmol In Amino Acid 5%-D15w 1,000 ml @ 60 mls/hr IV .BY DURATION [facility] Rx#: [id number] Sodium Acetate 40 meq 1055 Potassium Chloride 40 meq Calcium Gluconate 1 gm Magnesium Sulfate gm 1 gm Potassium Phosphate 9 mmol In Amino Acid 5%- D15w 1,000 ml @ 60 mls/hr IV .BY DURATION [facility] Rx#: [id number] Output: Drainage 40 65 Lower Left Abdomen 40 55 Medial Abdomen 0 10 Urine 200 Post Void Residual 900 Other: Voiding Method External Catheter # Voids 2 1 # Bowel Movements 1 ABP, PAP, CO, CI - Last Documented Arterial Blood Pressure 90/59 - Exam GENERAL DESCRIPTION: An elderly female lying in bed in no distress RESPIRATORY SYSTEM: Unlabored breathing , decreased breath sounds at bases HEART: S1 S2 regular rate and rhythm , ABDOMEN: Soft , mild tenderness EXTREMITIES: No edema feet - Labs CBC & Chem 7: 04/25/24 09:41 04/25/24 09:41 Labs: Abnormal Lab Results - Last 24 Hours (Table) 04/24/24 04/24/24 04/24/24 Range/Units 08:36 12:02 16:50 Sodium 136 L (137-145) mmol/L BUN 44 H (7-17) mg/dL Glucose 163 H (74-99) mg/dL POC Glucose (mg/dL) 183 H 158 H (70-110) mg/dL 04/24/24 04/25/24 Range/Units 23:30 06:29 Sodium (137-145) mmol/L BUN (7-17) mg/dL Glucose (74-99) mg/dL POC Glucose (mg/dL) 194 H 189 H (70-110) mg/dL Assessment and Plan (1) Peritonitis Current Visit: Yes Status: Acute Code(s): K65.9 - PERITONITIS, UNSPECIFIED SNOMED Code(s): 15383830 (2) Leukocytosis Current Visit: Yes Status: Acute Code(s): D72.829 - ELEVATED WHITE BLOOD CELL COUNT, UNSPECIFIED SNOMED Code(s): 917153898 (3) Perforated duodenal ulcer Current Visit: Yes Status: Acute Code(s): K26.5 - CHRONIC OR UNSPECIFIED DUODENAL ULCER WITH PERFORATION SNOMED Code(s): 47770666 Plan: 1patient presented to hospital with abdominal pain constipation has been diagnosed with the pneumoperitoneum secondary to perforated duodenal ulcer status post laparotomy and repair of the perforated jejunal ulcer we will need to cover for gram-negative and yeast. 2patient did have upper GI that was suspicious for leak patient is status post reexploration with Billroth II gastrectomy with Myles-en-Y reconstruction along with abdominal cultures which are so far negative 3-patient is afebrile white count is trending down to 11.1 today 4-patient to continue Zosyn and Eraxis waiting for improvement in the oral i ntake before transition to orals Dictation was produced using [employer] dictation software. please excuse any grammatical, word or spelling errors. Time with Patient: Less than 30
--- NOTE | 2024-04-25 13:32 | XR ---
EXAMINATION TYPE: XR abdomen acute w cxr DATE OF EXAM: 04/25/2024 1:23 PM CLINICAL INDICATION:Female, 88 years old with history of sob; COMPARISON: 04/20/2024. TECHNIQUE: Two radiographic views of the abdomen (upright and supine) and a frontal chest radiograph were obtained. FINDINGS CHEST: Lungs/Pleura: Blunting of costophrenic angles. There is no evidence of pleural effusion, focal consol idation or pneumothorax. Mediastinum: Unremarkable. Vasculature: Right central venous catheter with tip at superior cavoatrial junction. Heart: Normal in size. Musculoskeletal: The osseous structures are intact. Other findings: No significant. FINDINGS ABDOMEN: Bowel gas pattern: Normal without dilated loops of small or large bowel. Fecal material and gas are d emonstrated throughout the colon and rectum. Abnormal calcifications: None. Musculoskeletal: Normal. Other: Skin reshma project over the abdomen with surgical clips suspected drainage tube IMPRESSION: 1. No radiographic evidence for acute abdominal process. 2.. Bibasilar small pleural effusions.
[2024-04-25] MEDS: FUROSEMIDE 10 MG/ML 4 ML VIAL IV STA (13:44)
--- NOTE | 2024-04-25 14:20 | P.PN ---
Subjective Progress Note Date: 04/25/24 This is an 88-year-old female, recent history of fall about 2 weeks ago, sustained bruising to her left ribs. Patient was brought in yesterday to the ER mostly with symptoms of weakness, failure to thrive, poor oral intake, and suspected dehydration. Patient was also complaining of cough and shortness of breath, no fever no chills, no nausea no vomiting. In addition the patient had no bowel movement for the last 4 days. Apparently the patient has been experiencing intermittent episodes of confusion for the last 1 year. Workup in the ER included a CT of the abdomen and pelvis, it showed pneumoperitoneum and free fluid. Patient was felt that she has ruptured viscus, she was seen by surgery and she underwent exploratory laparotomy for her pneumoperitoneum, and she was found to have perforated duodenal ulcer. Patient had modified Lee patch and postoperatively the patient was extubated nonetheless she was admitted to the ICU, and this consult was initiated. I saw the patient in the ICU this morning, she is on 4 L nasal cannula, does not seem to be in any distress. She is already on Zosyn, and I added Diflucan. She is on LR at 125 cc/h. Her WBC count is 28.6, electrolytes are normal hemoglobin is 10.7 BUN is 97 creatinine down to 2.45 from 3.27 yesterday. Progress note dated April 10, 2024. 88-year-old female seen yesterday in consultation. She was admitted on April 08, with confusion and weakness. The patient had a repair of a perforated duodenal ulcer on April 09. Today is postop day #1. She is currently seen today in room 261. She is currently on 6 L of oxygen by nasal cannula. She has an NG tube in place. She is getting lactated Ringer's at 125 cc an hour. For atrial fibrillation with a rapid ventricular response, she was started on Cardizem drip at 5 mg an hour, and amiodarone 0.5 mg/min. No new labs today other than a glucose of 154. The labs from yesterday are reviewed. White count was 28.6. Hemoglobin 10.7, platelet count was normal. BUN and creatinine were 97 and 2.45. Chest x-ray suggested bilateral pleural effusions. Progress note dated April 11, 2024. 88-year-old female seen today in room 261. The patient was admitted on April 08, with confusion and weakness. The patient was discovered to have a perforated duodenal ulcer, and had a surgical repair performed on April 09. Today is postop day #2. The patient is currently without distress. She is on room air. NG tube remains in place. She is getting lactated Ringer's at 75 cc an hour. Because of atrial fibrillation and RVR, she continues on amiodarone 0.5 mg/min, and Cardizem at 5 mg an hour. Lab data includes a white count 34.6, hemoglobin 9.1, hematocrit 36.6, and a platelet count 442,000. Sodium 143, potassium 4.1, chlorides 113, CO2 23, BUN 71, creatinine 1.64. Glucose is 134. Albumin is 2.3. Blood cultures are currently negative. No chest x-ray today has been ordered. Progress note dated April 12, 2024. This is an 88-year-old female who is seen in room 261. The patient was admitted back on April 08, with confusion and weakness. She was discovered to have a perforated duodenal ulcer, and had surgical repair performed on April 09. Today is postoperative day #3. The patient is going to have a upper GI study today. She is getting lactated Ringer's at 75 cc an hour, 3 L of oxygen by nasal cannula, Cardizem at 5 mg an hour, and amiodarone at 0.5 mg/min. White count was 37.4, hemoglobin 11.6, hematocrit 38.5, and platelet count was normal. Sodium 145, potassium 3.2, chloride 115, CO2 24, BUN 52, creatinine 1.26. Glucose 123. Calcium 8.2. BUN 2.2. Blood cultures are currently negative. The patient's chest x-ray is stable, with some basilar atelectasis on the right. Upper GI study showed a leak, at the site of patch placement, in the duodenal bulb. Progress note dated April 13, 2024. 88-year-old female seen today in room 261. The patient is postop day #1, status post Billroth II gastrectomy, and Myles-en-Y reconstruction. The patient is currently on the ventilator. Ventilator settings include volume assist-control, rate 16, tidal volume 350, FiO2 40%, PEEP of 5. Blood gases show pO2 128, pCO2 34, pH is 7.43. The blood gases were done on 50% FiO2. The patient is on lactated Ringer's at 75 cc an hour, amiodarone 0.5 mg/min, Cardizem at 5 mg/h, and propofol, is restarted at a low rate. Current labs include a white count 34.8, hemoglobin 9.5, hematocrit 32.2, and a platelet count of 325,000. Sodium 141, potassium 4, chloride 114, CO2 21, BUN 48, creatinine 1.51. Glucose is 133. Calcium is 7. Blood cultures are negative. Chest x-ray shows in addition to endotracheal tube, and central venous line, blunting of the costophrenic angles. Progress note dated April 14, 2024. 88-year-old female seen today in room 261. She is postop day #2, status post Billroth II gastrectomy and Myles-en-Y reconstruction. The patient is on the ventilator. She was maintained on the ventilator overnight. Currently, the patient is on volume assist-control, rate 16, tidal volume 350, FiO2 30%, PEEP of 5. Blood gases show pO2 of 148, pCO2 33, pH is 7.42. Blood gases were done on 40%. The patient continues on amiodarone at 0.5 mg/min, lactated Ringer's at 75 cc an hour, propofol at 35 mcg/kg/min, and TPN at 30 cc an hour, to be increased to 55 cc an hour. Current white count is 25.2, hemoglobin 9.5, hematocrit 35.5, platelet count 362,000. Sodium 142, potassium 3.3, chlorides 112, CO2 25, BUN 50, creatinine 1.83. Albumin level was 1.9. Chest x-ray is largely unchanged. Progress note dated April 15, 2024. The patient is seen again in room 261. The patient was successfully extubated yesterday, April 14. She is currently on room air. She is receiving a saline IV at KVO, and TPN at 40 cc an hour. Current labs include a white count 18.1, hemoglobin 8.9, hematocrit 27.4, and a platelet count of 334,000. Sodium 140, potassium 3.9, chlorides 114, CO2 23, BUN 46, and creatinine 1.36. Glucose is 170. Calcium is 7.2. Phosphorus is 1.9. Magnesium is 2.0. Progress note dated April 16, 2024. The patient is seen today in room 261. She is currently on room air. She continues on amiodarone at 0.5 mg/min. She is getting TPN at 40 cc an hour, and saline at KVO. She does continue on Zosyn. All her cultures are thus far negative. She has no specific complaints today. According to the nurse, she is a bit anxious. Current labs include a sodium 139, potassium 3.9, chlorides 114, CO2 23, BUN 35, and creatinine 1.15. Glucose is 178. Calcium 7.5, phosphorus 2.3, and magnesium is normal. Culture data is negative. Venous Doppler yesterday, shows a superficial venous thrombosis involving the cephalic vein, of the left upper extremity. On today's evaluation of 04/17/2024, the patient is being seen for a follow-up. The patient is recovering from her abdominal surgery. The patient undergone exploratory laparotomy and repair of a perforated duodenal ulcer and she is postop day #8 subsequent the patient required a bit to gastrectomy and the patient is this morning, the patient has awake and alert and she is currently on med oxygen. She is in normal sinus rhythm. She is on TPN which is running at a rate of 40 cc an hour. She remains on IV Zosyn. She is using the incentive spirometer. The patient has 2 SHRUTHI drains. The medial drain has drained approximately 180 cc of serous material and the right lower abdominal drain has put out approximately 10 cc. She has had paroxysmal atrial fibrillation. She remains on amiodarone running at 0.5 mg/min. The white cell count is at 17 with a hemoglobin 9.1 and a platelet count of 431. BUN is 28 with a creatinine of 1. Electrolytes are normal limits. LFTs are normal. Blood sugar is at 183. The patient remains on empiric antibiotic coverage with IV Zosyn. She is being given oral diet today. Should be able also to take her oral medication. Surgical abdominal wound scar is dry clean and intact. He is alert and awake and communicating. 04/18/2024, the patient is on BiPAP. The patient decompensated overnight and became hypoxic. Chest x-ray was done and the patient was found to have large bilateral pleural effusion the patient was given Lasix. Noted the patient was on room air oxygen prior to her being transferred to the medical floor. At that point, the patient was placed on a BiPAP. She was started on the Lasix. This morning, she remains on BiPAP at a pressure of over 5 cm of water and FiO2 was brought up to 70%. No chest pain. She is awake and alert and she is producing adequate amount of urine output. The white cell count is currently up to On her blood work 38.9 with a hemoglobin of 9 and a platelet count of 443. BUN is 32 with a creatinine of 1.2 and sodium levels of 136. I repeated her blood work again and her white cell count is up to 40 with a hemoglobin of 8.8. The patient got transferred to the intensive care unit. Immediately, I performed an ultrasound of the chest that showed bilateral pleural effusion and thoracentesis of the right lung was done, pending follow-up chest x-ray and a total of 600 cc of pleural fluid aspirated from the right lung. Hemodynamically stable. No hypotension. Remains on TPN. Remains on IV Zosyn. Remains on Lasix 20 mg IV every 12 hours. Awake and alert and communicating. On today's evaluation of 04/19/2024, the patient seems to be more comfortable comp ared to yesterday. The patient is currently on 2 L of oxygen by nasal cannula. The patient was at the pulmonary edema and developed bilateral pleural effusions. The patient had a thoracentesis yesterday without any complication. A total of 650 cc of pleural fluid was aspirated from the right lung. A repeat chest x-ray from today showing improvement in the volume status. There is still increased interstitial markings bilaterally and small bilateral pleural effusions in the lung bases bilaterally. The patient remains on IV Lasix. The patient is producing adequate amount of urine output. Nevertheless, the fluid balance over the past 24 hours has been +500 cc. The patient remains on TPN for nutritional support. The patient is receiving TPN at a rate of 60 cc an hour. The patient is also on a combination of Zosyn and Eraxis, and vancomycin.. Oxygenation is improved and the patient is currently off the BiPAP and the patient currently is on 3 L of oxygen by nasal cannula. BUN is 40 with a creatinine of 1.2. Sodium level is 137, white cell count is improved is currently down to 21 with a hemoglobin of 7.5 and a platelet count of 393. No other significant events otherwise and the patient's condition is slightly more stable compared to yesterday. She is awake and alert and communicating. On 04/20/2024, the patient is being seen for a follow-up. The patient is doing well on 3 L of oxygen by nasal cannula. No significant respiratory distress. A follow-up chest x-ray was done today and showed improvement in volume status with small bilateral pleural effusion and some increased interstitial markings bilaterally. Nevertheless, the patient has been diuresed adequately and the patient is currently in negative fluid balance and the patient will be switched to oral Lasix. IV Lasix will be discontinued and the patient has been switched to 40 mg of Lasix on a daily basis. Remains on TPN for nutritional support. She did have a bloody bowel movement, unsure if it is melanotic. This will be monitored as the patient hemoglobin has remeasured at 8.7 on today's evaluation. The white cell count is 15.8. BUN is 48 with a creatinine 1.2 and sodium levels at 135 and a potassium level of 3.1. LFTs are all stable. Antibiotic coverage remains unchanged and the patient remains on a combination of Eraxis and Zosyn. Surgical wound site is dry clean and intact. Renal function remained stable On 04/21/2024, seen the patient for a follow-up. She is currently on room air oxygen. She is having some coffee-ground material in her mouth and I suspect ongoing GI bleed. Note that the patient's hemoglobin had dropped down to 6.6 and the patient does get transfused with packed RBC and a subsequent hemoglobin is up to 8.7 and currently is at 8.1. No acute evidence of any active upper GI bleeding. The patient is awake and alert and communicating. She remains on TPN for nutritional support. Surgical scars are dry clean and intact. Antibiotic coverage with IV Zosyn and Eraxis per IDs recommendations. As mentioned, the patient is postthoracentesis. The patient is currently on diuretics and the patient receiving Lasix 40 mg p.o. daily.. The patient is on room air oxygen. No other significant events overnight. 04/22/2024, the patient is suspected to have some ongoing low-grade GI bleed. She is still having some black stools and coughing out some coffee-ground material. Hemoglobin is at 7.1. Noted that hemoglobin has dropped slightly compared to yesterday is down from 8.1. Respiratory status is stable. She is on 2 L of O2 nasal cannula. Pulse ox 96%. Platelet count is at 397. Remains appropriate for oxygen support. Creatinine is stable at 1.2. BUN is 52 with a sodium of 135. No other significant events overnight. Remains alert and awake and communicating. No confusion. No altered mentation. 04/23/2024, the patient had another bloody neurologic bowel movement that she is coughing out coffee-ground material. I suspect ongoing GI bleed. Noted the repeat hemoglobin from yesterday was at 6.5. The patient was given a unit of packed RBC and the hemoglobin is currently at 9. Platelet counts are stable. Abdominal exam is stable. Creatinine is at 1.2 with a BUN of 53. Sodium is at 135. Repeat hemoglobin will be obtained. She remains on TPN for nutritional support. Overall respiratory status is stable. The patient is currently on 2 L of oxygen by nasal cannula with a pulse ox of 94%. General surgery is on the case. 2023 in follow-up on the regular medical floor. She is currently sitting up in a chair. Awake and alert in no acute distress. She is maintaining O2 saturations in the 90s on 2 L/min per nasal cannula. She has been afebrile. Hemodynamically stable. White count 11.6. Hemoglobin 9.7. Platelets 495. Sodium 136. Potassium 4.4. Bicarb 25. BUN 44. Creatinine 1.03. Glucose 163. Vancomycin trough 13.9. She is status post 2 units of packed red blood cells this admission. She remains on TPN for nutritional support at 60 MLS per hour. She remains on Zosyn and Eraxis. The patient is seen today April 25, 2024 in follow-up on the regular medical floor. She is currently resting fairly comfortably in bed. Awake and alert in no acute distress. She is having issues with urinary retention and a Walters catheter needs to be replaced. She is maintaining good O2 saturations in the 90s on 2 L/min per nasal cannula. She is being nourished with TPN currently at 60 MLS per hour. She remains on Zosyn and Eraxis. Continued on bronchodilators. Acute abdominal x-ray revealed no radiographic evidence for acute abdominal process. Bibasilar small pleural effusions. White count 11.5. Hemoglobin 9.5. Platelets 490. Sodium 133. Potassium 4.1. Bicarb 24. BUN 40. Creatinine 1.10. Glucose 165. Urinalysis clean. Objective - Vital Signs Vital signs: Vital Signs Temp 97.8 F 04/25/24 07:13 Pulse 85 04/25/24 12:35 Resp 18 04/25/24 07:13 BP 162/68 04/25/24 07:13 Pulse Ox 95 04/25/24 08:48 FiO2 70 04/18/24 14:00 Intake & Output 04/24/24 04/25/24 04/25/24 18:59 06:59 18:59 Intake Total 1055 1066 Output Total 40 1165 724 Balance 1015 -99 -724 Weight 59 kg 59.5 kg Intake: Intake, IV Titration 1055 1066 Amount Mvi, Adult No.4 with Vit 1066 K 10 ml Trace (Conc-1Ml/ Dose) 1 ml Sodium Acetate 40 meq Potassium Chloride 40 meq Calcium Gluconate 1 gm Magnesium Sulfate gm 1 gm Potassium Phosphate 9 mmol In Amino Acid 5%-D15w 1,000 ml @ 60 mls/hr IV .BY DURATION [facility] Rx#: [id number] Sodium Acetate 40 meq 1055 Potassium Chloride 40 meq Calcium Gluconate 1 gm Magnesium Sulfate gm 1 gm Potassium Phosphate 9 mmol In Amino Acid 5%- D15w 1,000 ml @ 60 mls/hr IV .BY DURATION [facility] Rx#: [id number] Output: Drainage 40 65 124 Lower Left Abdomen 40 55 120 Medial Abdomen 0 10 4 Urine 200 600 Post Void Residual 900 Other: Voiding Method External Catheter Indwelling Catheter # Voids 2 1 # Bowel Movements 1 ABP, PAP, CO, CI - Last Documented Arterial Blood Pressure 90/59 - Exam GENERAL EXAM: Alert, frail 88-year-old female, resting in bed, on 2 L nasal cannula, in no apparent distress. HEAD: Normocephalic. EYES: Normal reaction of pupils, equal size. NOSE: Clear with pink turbinates. THROAT: No erythema or exudates. NECK: No masses, no JVD. CHEST: No chest wall deformity. LUNGS: Equal air entry with no crackles, wheeze, rhonchi or dullness. CVS: S1 and S2 normal with no audible murmur, regular rhythm. ABDOMEN: Abdominal dressing dry and intact. SHRUTHI drains in place. Normal bowel sounds, no guarding or rigidity. SPINE: No scoliosis or deformity SKIN: No rashes CENTRAL NERVOUS SYSTEM: No focal deficits, tone is normal in all 4 extremities. EXTREMITIES: There is no peripheral edema. No clubbing, no cyanosis. Perip heral pulses are intact. - Labs CBC & Chem 7: 04/25/24 09:41 04/25/24 09:41 Labs: Abnormal Lab Results - Last 24 Hours (Table) 04/24/24 04/24/24 04/25/24 Range/Units 16:50 23:30 06:29 WBC (3.8-10.6) k/uL RBC (3.80-5.40) m/uL Hgb (11.4-16.0) gm/dL Hct (34.0-46.0) % MCHC (31.0-37.0) g/dL RDW (11.5-15.5) % Plt Count (150-450) k/uL Sodium (137-145) mmol/L BUN (7-17) mg/dL Creatinine (0.52-1.04) mg/dL Glucose (74-99) mg/dL POC Glucose (mg/dL) 158 H 194 H 189 H (70-110) mg/dL Total Protein (6.3-8.2) g/dL Albumin (3.5-5.0) g/dL Urine Blood (Negative) 04/25/24 04/25/24 04/25/24 Range/Units 09:41 09:41 11:10 WBC 11.5 H (3.8-10.6) k/uL RBC 3.27 L (3.80-5.40) m/uL Hgb 9.5 L (11.4-16.0) gm/dL Hct 31.7 L (34.0-46.0) % MCHC 30.1 L (31.0-37.0) g/dL RDW 15.8 H (11.5-15.5) % Plt Count 490 H (150-450) k/uL Sodium 133 L (137-145) mmol/L BUN 40 H (7-17) mg/dL Creatinine 1.10 H (0.52-1.04) mg/dL Glucose 165 H (74-99) mg/dL POC Glucose (mg/dL) (70-110) mg/dL Total Protein 5.1 L (6.3-8.2) g/dL Albumin 2.5 L (3.5-5.0) g/dL Urine Blood Small H (Negative) 04/25/24 Range/Units 11:29 WBC (3.8-10.6) k/uL RBC (3.80-5.40) m/uL Hgb (11.4-16.0) gm/dL Hct (34.0-46.0) % MCHC (31.0-37.0) g/dL RDW (11.5-15.5) % Plt Count (150-450) k/uL Sodium (137-145) mmol/L BUN (7-17) mg/dL Creatinine (0.52-1.04) mg/dL Glucose (74-99) mg/dL POC Glucose (mg/dL) 166 H (70-110) mg/dL Total Protein (6.3-8.2) g/dL Albumin (3.5-5.0) g/dL Urine Blood (Negative) Assessment and Plan Assessment: Acute hypoxic respiratory failure, recovered and the patient was extubated on 04/14/2024. The patient was on room air oxygen and the patient got transferred to the medical floor to be readmitted back to the ICU the patient was weaned off the BiPAP and the patient is currently is on oxygen by nasal cannula Acute leukocytosis, rule out septic event. Currently on IV Zosyn and Eraxis. The white cell count is at 11.5 Acute on chronic anemia consider the possibility of an ongoing GI bleed as the patient is also coughing out some coffee-ground material. Status post 2 units of packed red blood cells. Current hemoglobin 9.5. Status post re-exploration on April 12, 2024 with Billroth II gastrectomy, and R oux-en-Y reconstruction. The patient remains on TPN for nutritional support. Status post exploratory laparotomy, April 09, 2024 repair of perforated duodenal ulcer, and application of a modified Lee patch. Upper GI series, showing leak, at the site of the modified Lee patch. Acute abdominal sepsis, secondary to above and the patient is currently on IV Zosyn and Eraxis. Abdominal series from 04/25/2024 revealed no acute abdominal process Acute atrial fibrillation, with rapid ventricular response. The cardiac rhythm is back to sinus, on oral amiodarone History of splenic hematoma, without rupture. The patient is currently on no anticoagulants Acute dehydration with acute kidney injury. Recovered and the patient renal function is normal Nonanion gap metabolic acidosis, recovered Hypovolemic hyponatremia, recovered Urinary retention requiring reinsertion of indwelling Walters catheter Poor functional performance based on the above-mentioned multiple comorbidities. Plan: The patient was seen and evaluated Labs and medications reviewed Abdominal x-ray revealed no acute process Being nourished with TPN and lipids Increase her activity as tolerated Now a DNR/DNI CODE STATUS Plan is for [facility] at discharge We will continue to follow I have personally seen and examined the patient, performed the documentation and the assessment and plan as written. Number of minutes spent on the visit: 10.
--- NOTE | 2024-04-25 16:39 | P.PN ---
Subjective Progress Note Date: 04/25/24 Principal diagnosis: Perforated duodenal ulcer Patient unfortunately showed some decline overnight. Apparently she had an issue with urinary retention after Walters catheter was removed. Did not sleep well because of the urinary retention. This morning more confused. Was more short of breath. Lasix was given. Remains confused. Denies pain. On the pillowcase and also on the sheets is noted a small amount of possible gastric fluid staining. Darker stool this morning. Hemoglobin stable. Did have a fever today of 100.7. Both drains remain serous. Objective - Vital Signs Vital signs: Vital Signs Temp 100.7 F H 04/25/24 13:49 Pulse 100 04/25/24 13:49 Resp 18 04/25/24 13:49 BP 148/68 04/25/24 13:49 Pulse Ox 97 04/25/24 13:49 FiO2 70 04/18/24 14:00 Intake & Output 04/24/24 04/25/24 04/25/24 18:59 06:59 18:59 Intake Total 1055 1066 Output Total 40 1165 724 Balance 1015 -99 -724 Weight 59 kg 59.5 kg Intake: Intake, IV Titration 1055 1066 Amount Mvi, Adult No.4 with Vit 1066 K 10 ml Trace (Conc-1Ml/ Dose) 1 ml Sodium Acetate 40 meq Potassium Chloride 40 meq Calcium Gluconate 1 gm Magnesium Sulfate gm 1 gm Potassium Phosphate 9 mmol In Amino Acid 5%-D15w 1,000 ml @ 60 mls/hr IV .BY DURATION [facility] Rx#: [id number] Sodium Acetate 40 meq 1055 Potassium Chloride 40 meq Calcium Gluconate 1 gm Magnesium Sulfate gm 1 gm Potassium Phosphate 9 mmol In Amino Acid 5%- D15w 1,000 ml @ 60 mls/hr IV .BY DURATION [facility] Rx#: [id number] Output: Drainage 40 65 124 Lower Left Abdomen 40 55 120 Medial Abdomen 0 10 4 Urine 200 600 Post Void Residual 900 Other: Voiding Method External Catheter Indwelling Catheter # Voids 2 1 # Bowel Movements 1 ABP, PAP, CO, CI - Last Documented Arterial Blood Pressure 90/59 - Exam Abdomen: Soft, nondistended, nontender, incision clean and dry, both drains serous - Labs CBC & Chem 7: 04/25/24 09:41 04/25/24 09:41 Labs: Abnormal Lab Results - Last 24 Hours (Table) 04/24/24 04/24/24 04/25/24 Range/Units 16:50 23:30 06:29 WBC (3.8-10.6) k/uL RBC (3.80-5.40) m/uL Hgb (11.4-16.0) gm/dL Hct (34.0-46.0) % MCHC (31.0-37.0) g/dL RDW (11.5-15.5) % Plt Count (150-450) k/uL Sodium (137-145) mmol/L BUN (7-17) mg/dL Creatinine (0.52-1.04) mg/dL Glucose (74-99) mg/dL POC Glucose (mg/dL) 158 H 194 H 189 H (70-110) mg/dL Total Protein (6.3-8.2) g/dL Albumin (3.5-5.0) g/dL Urine Blood (Negative) 04/25/24 04/25/24 04/25/24 Range/Units 09:41 09:41 11:10 WBC 11.5 H (3.8-10.6) k/uL RBC 3.27 L (3.80-5.40) m/uL Hgb 9.5 L (11.4-16.0) gm/dL Hct 31.7 L (34.0-46.0) % MCHC 30.1 L (31.0-37.0) g/dL RDW 15.8 H (11.5-15.5) % Plt Count 490 H (150-450) k/uL Sodium 133 L (137-145) mmol/L BUN 40 H (7-17) mg/dL Creatinine 1.10 H (0.52-1.04) mg/dL Glucose 165 H (74-99) mg/dL POC Glucose (mg/dL) (70-110) mg/dL Total Protein 5.1 L (6.3-8.2) g/dL Albumin 2.5 L (3.5-5.0) g/dL Urine Blood Small H (Negative) 04/25/24 Range/Units 11:29 WBC (3.8-10.6) k/uL RBC (3.80-5.40) m/uL Hgb (11.4-16.0) gm/dL Hct (34.0-46.0) % MCHC (31.0-37.0) g/dL RDW (11.5-15.5) % Plt Count (150-450) k/uL Sodium (137-145) mmol/L BUN (7-17) mg/dL Creatinine (0.52-1.04) mg/dL Glucose (74-99) mg/dL POC Glucose (mg/dL) 166 H (70-110) mg/dL Total Protein (6.3-8.2) g/dL Albumin (3.5-5.0) g/dL Urine Blood (Negative) Assessment and Plan (1) Perforated duodenal ulcer Narrative/Plan: 88-year-old female unfortunately doing somewhat worse today. Discussed CODE STATUS with the patient's friend. She was made no code at this time. Suspect she may have had some aspiration today. We discussed possible need for gastric decompression. We decided we would proceed with abdominal x-ray along with chest x-ray first. Abdominal x-ray shows no obvious gastric distention or air- fluid levels. Keep n.p.o. for now. Continue optimization of pulmonary status. Prognosis unfortunately poor given the patient's age and comorbidities. Will follow. Current Visit: Yes Status: Acute Code(s): K26.5 - CHRONIC OR UNSPECIFIED DUODENAL ULCER WITH PERFORATION SNOMED Code(s): 24443507
--- NOTE | 2024-04-25 17:50 | P.PN ---
Subjective Patient is seen for follow-up for acute kidney injury. Serum creatinine staying at about 1.1-1.0 mg/dL. maintained on oral Lasix. Receiving TPN. Walters catheter was replaced today and patient had urine retention of about 800 mL. Objective - Vital Signs Vital signs: Vital Signs Temp 100.7 F H 04/25/24 13:49 Pulse 100 04/25/24 13:49 Resp 18 04/25/24 13:49 BP 148/68 04/25/24 13:49 Pulse Ox 97 04/25/24 13:49 FiO2 70 04/18/24 14:00 Intake & Output 04/24/24 04/25/24 04/25/24 18:59 06:59 18:59 Intake Total 1055 1066 Output Total 40 1165 724 Balance 1015 -99 -724 Weight 59 kg 59.5 kg Intake: Intake, IV Titration 1055 1066 Amount Mvi, Adult No.4 with Vit 1066 K 10 ml Trace (Conc-1Ml/ Dose) 1 ml Sodium Acetate 40 meq Potassium Chloride 40 meq Calcium Gluconate 1 gm Magnesium Sulfate gm 1 gm Potassium Phosphate 9 mmol In Amino Acid 5%-D15w 1,000 ml @ 60 mls/hr IV .BY DURATION [facility] Rx#: [id number] Sodium Acetate 40 meq 1055 Potassium Chloride 40 meq Calcium Gluconate 1 gm Magnesium Sulfate gm 1 gm Potassium Phosphate 9 mmol In Amino Acid 5%- D15w 1,000 ml @ 60 mls/hr IV .BY DURATION [facility] Rx#: [id number] Output: Drainage 40 65 124 Lower Left Abdomen 40 55 120 Medial Abdomen 0 10 4 Urine 200 600 Post Void Residual 900 Other: Voiding Method External Catheter Indwelling Catheter # Voids 2 1 # Bowel Movements 1 ABP, PAP, CO, CI - Last Documented Arterial Blood Pressure 90/59 - Exam patient is awake, she is anxious. 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 - Labs CBC & Chem 7: 04/25/24 09:41 04/25/24 09:41 Labs: Abnormal Lab Results - Last 24 Hours (Table) 04/24/24 04/25/24 04/25/24 Range/Units 23:30 06:29 09:41 WBC (3.8-10.6) k/uL RBC (3.80-5.40) m/uL Hgb (11.4-16.0) gm/dL Hct (34.0-46.0) % MCHC (31.0-37.0) g/dL RDW (11.5-15.5) % Plt Count (150-450) k/uL Sodium 133 L (137-145) mmol/L BUN 40 H (7-17) mg/dL Creatinine 1.10 H (0.52-1.04) mg/dL Glucose 165 H (74-99) mg/dL POC Glucose (mg/dL) 194 H 189 H (70-110) mg/dL Total Protein 5.1 L (6.3-8.2) g/dL Albumin 2.5 L (3.5-5.0) g/dL Urine Blood (Negative) 04/25/24 04/25/24 04/25/24 Range/Units 09:41 11:10 11:29 WBC 11.5 H (3.8-10.6) k/uL RBC 3.27 L (3.80-5.40) m/uL Hgb 9.5 L (11.4-16.0) gm/dL Hct 31.7 L (34.0-46.0) % MCHC 30.1 L (31.0-37.0) g/dL RDW 15.8 H (11.5-15.5) % Plt Count 490 H (150-450) k/uL Sodium (137-145) mmol/L BUN (7-17) mg/dL Creatinine (0.52-1.04) mg/dL Glucose (74-99) mg/dL POC Glucose (mg/dL) 166 H (70-110) mg/dL Total Protein (6.3-8.2) g/dL Albumin (3.5-5.0) g/dL Urine Blood Small H (Negative) Assessment and Plan Assessment: 1. Acute kidney injury, ATN currently nonoliguric. Improved and stable. UA is quite benign. No evidence of obstruction on CT of the abdomen. 2. Non-gap metabolic acidosis secondary to acute kidney injury. 3. Perforated duodenal ulcer status post explorative laparotomy with tato patch on 04/09/2024. Patient had re exploration for leak around the Tato patch on 04/12/2024 with Myles-en-Y reconstruction and Billroth II gastrectomy 4. Status post fall with rib fractures 5. A. fib with RVR maintained on amiodarone 6. Urine retention with Walters catheter replaced. Plan: continue with TPN as per surgery Monitor volume status closely. Patient may need to restart Lasix. Repeat labs in a.m.
[2024-04-26 01:14] LABS: Glucose,Whole Blood 202 mg/dL (70-110)
[2024-04-26 06:17] LABS: Glucose,Whole Blood 188 mg/dL (70-110)
[2024-04-26 07:01] LABS: African American GFR (CKD) 43 (>60 ml/min/1.73 sqM); Anion Gap 6 mmol/L; Blood Urea Nitrogen 42 mg/dL (7-17); Calcium 8.2 mg/dL (8.4-10.2); Carbon Dioxide 27 mmol/L (22-30); Chloride 101 mmol/L (98-107); Glucose 164 mg/dL (74-99); Magnesium 2.1 mg/dL (1.6-2.3); Non-African American GFR(CKD) 38 (>60 ml/min/1.73 sqM); Phosphorus 4.1 mg/dL (2.5-4.5); Potassium 3.8 mmol/L (3.5-5.1); Sodium 134 mmol/L (137-145)
--- NOTE | 2024-04-26 08:20 | P.PN ---
Subjective Principal diagnosis: Shortness of breath Patient is status post perforated duodenal ulcer with repair. She was transferred to ICU secondary to shortness of breath. Thoracentesis was done. Results are noted. She seems to be in decreased respiratory distress than yesterday. No nausea, vomiting or diarrhea stated. She is n.p.o. at this time. She is struggling with urinary retention Objective - Vital Signs Vital signs: Vital Signs Temp 98.4 F 04/26/24 07:21 Pulse 67 04/26/24 07:21 Resp 18 04/26/24 07:21 BP 96/57 04/26/24 07:21 Pulse Ox 94 L 04/26/24 07:21 FiO2 70 04/18/24 14:00 Intake & Output 04/25/24 04/26/24 04/26/24 18:59 06:59 18:59 Output Total 1824 1310 Balance -1824 -1310 Weight 55.5 kg Output: Drainage 124 60 Lower Left Abdomen 120 60 Medial Abdomen 4 Urine 1700 1250 Other: Voiding Method Indwelling Catheter Indwelling Catheter # Bowel Movements 1 ABP, PAP, CO, CI - Last Documented Arterial Blood Pressure 90/59 - Constitutional General appearance: Present: average body habitus, cooperative, thin - EENT Eyes: Absent: abnormal pupil - Respiratory Respiratory: bilateral: diminished - Cardiovascular Rhythm: regular Heart sounds: normal: S1, S2 Abnormal Heart Sounds: Absent: S3 Gallop - Gastrointestinal General gastrointestinal: Present: soft. Absent: tenderness - Musculoskeletal Musculoskeletal: Present: generalized weakness - Labs CBC & Chem 7: 04/25/24 09:41 04/26/24 06:07 Labs: Abnormal Lab Results - Last 24 Hours (Table) 04/25/24 04/25/24 04/25/24 Range/Units 09:41 09:41 11:10 WBC 11.5 H (3.8-10.6) k/uL RBC 3.27 L (3.80-5.40) m/uL Hgb 9.5 L (11.4-16.0) gm/dL Hct 31.7 L (34.0-46.0) % MCHC 30.1 L (31.0-37.0) g/dL RDW 15.8 H (11.5-15.5) % Plt Count 490 H (150-450) k/uL Sodium 133 L (137-145) mmol/L BUN 40 H (7-17) mg/dL Creatinine 1.10 H (0.52-1.04) mg/dL Glucose 165 H (74-99) mg/dL POC Glucose (mg/dL) (70-110) mg/dL Calcium (8.4-10.2) mg/dL Total Protein 5.1 L (6.3-8.2) g/dL Albumin 2.5 L (3.5-5.0) g/dL Urine Blood Small H (Negative) 04/25/24 04/26/24 04/26/24 Range/Units 11:29 01:13 06:07 WBC (3.8-10.6) k/uL RBC (3.80-5.40) m/uL Hgb (11.4-16.0) gm/dL Hct (34.0-46.0) % MCHC (31.0-37.0) g/dL RDW (11.5-15.5) % Plt Count (150-450) k/uL Sodium 134 L (137-145) mmol/L BUN 42 H (7-17) mg/dL Creatinine 1.27 H (0.52-1.04) mg/dL Glucose 164 H (74-99) mg/dL POC Glucose (mg/dL) 166 H 202 H (70-110) mg/dL Calcium 8.2 L (8.4-10.2) mg/dL Total Protein (6.3-8.2) g/dL Albumin (3.5-5.0) g/dL Urine Blood (Negative) 04/26/24 Range/Units 06:12 WBC (3.8-10.6) k/uL RBC (3.80-5.40) m/uL Hgb (11.4-16.0) gm/dL Hct (34.0-46.0) % MCHC (31.0-37.0) g/dL RDW (11.5-15.5) % Plt Count (150-450) k/uL Sodium (137-145) mmol/L BUN (7-17) mg/dL Creatinine (0.52-1.04) mg/dL Glucose (74-99) mg/dL POC Glucose (mg/dL) 188 H (70-110) mg/dL Calcium (8.4-10.2) mg/dL Total Protein (6.3-8.2) g/dL Albumin (3.5-5.0) g/dL Urine Blood (Negative) Assessment and Plan (1) Dehydration Current Visit: Yes Status: Acute Code(s): E86.0 - DEHYDRATION SNOMED Code(s): 06806286 (2) Perforated duodenal ulcer Current Visit: Yes Status: Acute Code(s): K26.5 - CHRONIC OR UNSPECIFIED DUODENAL ULCER WITH PERFORATION SNOMED Code(s): 62174347 (3) Peritonitis Current Visit: Yes Status: Acute Code(s): K65.9 - PERITONITIS, UNSPECIFIED SNOMED Code(s): 36885823 (4) Fall Current Visit: No Status: Acute Code(s): W19.XXXA - UNSPECIFIED FALL, INITIAL ENCOUNTER SNOMED Code(s): 7612244 (5) Ribs, multiple fractures Current Visit: No Status: Acute Code(s): S22.49XA - MULTIPLE FRACTURES OF RIBS, UNSP SIDE, INIT FOR CLOS FX SNOMED Code(s): 9168134 Plan: Continue current regimen of treatment. Slowly healing from peritonitis from duodenal ulcer perforation. Check appropriate laboratories per protocol CBC CMP. Will continue to follow. Appreciate multiple consultants input. Time with Patient: Greater than 30
--- NOTE | 2024-04-26 08:41 | P.PN ---
Subjective Walters catheter was placed yesterday for PVR of 900 Objective - Vital Signs Vital signs: Vital Signs Temp 98.4 F 04/26/24 07:21 Pulse 67 04/26/24 07:21 Resp 18 04/26/24 07:21 BP 96/57 04/26/24 07:21 Pulse Ox 94 L 04/26/24 07:21 FiO2 70 04/18/24 14:00 Intake & Output 04/25/24 04/26/24 04/26/24 18:59 06:59 18:59 Output Total 1824 1310 Balance -1824 -1310 Weight 55.5 kg Output: Drainage 124 60 Lower Left Abdomen 120 60 Medial Abdomen 4 Urine 1700 1250 Other: Voiding Method Indwelling Catheter Indwelling Catheter # Bowel Movements 1 ABP, PAP, CO, CI - Last Documented Arterial Blood Pressure 90/59 - Constitutional General appearance: Present: no acute distress - Labs CBC & Chem 7: 04/25/24 09:41 04/26/24 06:07 Labs: Abnormal Lab Results - Last 24 Hours (Table) 04/25/24 04/25/24 04/25/24 Range/Units 09:41 09:41 11:10 WBC 11.5 H (3.8-10.6) k/uL RBC 3.27 L (3.80-5.40) m/uL Hgb 9.5 L (11.4-16.0) gm/dL Hct 31.7 L (34.0-46.0) % MCHC 30.1 L (31.0-37.0) g/dL RDW 15.8 H (11.5-15.5) % Plt Count 490 H (150-450) k/uL Sodium 133 L (137-145) mmol/L BUN 40 H (7-17) mg/dL Creatinine 1.10 H (0.52-1.04) mg/dL Glucose 165 H (74-99) mg/dL POC Glucose (mg/dL) (70-110) mg/dL Calcium (8.4-10.2) mg/dL Total Protein 5.1 L (6.3-8.2) g/dL Albumin 2.5 L (3.5-5.0) g/dL Urine Blood Small H (Negative) 04/25/24 04/26/24 04/26/24 Range/Units 11:29 01:13 06:07 WBC (3.8-10.6) k/uL RBC (3.80-5.40) m/uL Hgb (11.4-16.0) gm/dL Hct (34.0-46.0) % MCHC (31.0-37.0) g/dL RDW (11.5-15.5) % Plt Count (150-450) k/uL Sodium 134 L (137-145) mmol/L BUN 42 H (7-17) mg/dL Creatinine 1.27 H (0.52-1.04) mg/dL Glucose 164 H (74-99) mg/dL POC Glucose (mg/dL) 166 H 202 H (70-110) mg/dL Calcium 8.2 L (8.4-10.2) mg/dL Total Protein (6.3-8.2) g/dL Albumin (3.5-5.0) g/dL Urine Blood (Negative) 04/26/24 Range/Units 06:12 WBC (3.8-10.6) k/uL RBC (3.80-5.40) m/uL Hgb (11.4-16.0) gm/dL Hct (34.0-46.0) % MCHC (31.0-37.0) g/dL RDW (11.5-15.5) % Plt Count (150-450) k/uL Sodium (137-145) mmol/L BUN (7-17) mg/dL Creatinine (0.52-1.04) mg/dL Glucose (74-99) mg/dL POC Glucose (mg/dL) 188 H (70-110) mg/dL Calcium (8.4-10.2) mg/dL Total Protein (6.3-8.2) g/dL Albumin (3.5-5.0) g/dL Urine Blood (Negative) Assessment and Plan Assessment: 88-year-old female with postoperative urinary retention, [address] [facility] [place] Walters catheter was placed by me on April 10, catheter was removed 04/24 patient has been able to void small amounts but her postvoid residual has continued to trend up were, Walters was reinserted yesterday -Continue flomax -Can have a trial of void in 2 weeks
[2024-04-26 08:50] LABS: HCT 24.2 % (37.2-46.3); HGB 7.7 g/dL (12.0-15.0); RBC 2.63 X 10*6/uL (4.10-5.20); WBC 15.29 X 10*3/uL (4.50-10.00)
[2024-04-26 08:51] LABS: MCH 29.3 pg (27.0-32.0); MCHC 31.8 g/dL (32.0-37.0); Mean Platelet Volume 10.6 FL (9.5-12.2); NRBC Per 100 WBC 0 X 10*3/uL (0.00-0.01); Platelet Count 426 X 10*3/uL (140-440); RDW 16.2 % (11.5-14.5)
[2024-04-26 11:54] LABS: Glucose,Whole Blood 214 mg/dL (70-110)
[2024-04-26 13:10] LABS: INR 0.9 (<1.2); Prothrombin Time 10.4 sec (10.0-12.5)
--- NOTE | 2024-04-26 13:25 | P.PN ---
Subjective Patient is seen for follow-up for acute kidney injury. Serum creatinine staying at about 1.1-1.2 mg/dL. Receiving TPN. Walters catheter was replaced as patient had urine retention of about 800 mL. Objective - Vital Signs Vital signs: Vital Signs Temp 98.4 F 04/26/24 07:21 Pulse 70 04/26/24 08:57 Resp 18 04/26/24 07:21 BP 96/57 04/26/24 07:21 Pulse Ox 99 04/26/24 08:49 FiO2 70 04/18/24 14:00 Intake & Output 04/25/24 04/26/24 04/26/24 18:59 06:59 18:59 Intake Total 1055 Output Total 1824 1310 Balance -769 -1310 Weight 55.5 kg Intake: Intake, IV Titration 1055 Amount Sodium Acetate 40 meq 1055 Potassium Chloride 40 meq Calcium Gluconate 1 gm Magnesium Sulfate gm 1 gm Potassium Phosphate 9 mmol In Amino Acid 5%- D15w 1,000 ml @ 60 mls/hr IV .BY DURATION [facility] Rx#: [id number] Output: Drainage 124 60 Lower Left Abdomen 120 60 Medial Abdomen 4 Urine 1700 1250 Other: Voiding Method Indwelling Catheter Indwelling Catheter Indwelling Catheter # Bowel Movements 1 ABP, PAP, CO, CI - Last Documented Arterial Blood Pressure 90/59 - Exam patient is awake, comfortable Examination of the heart S1 and S2 Examination of the lungs decreased breath sounds at the bases Abdomen is soft Examination lower extremity shows trace edema, 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 - Labs CBC & Chem 7: 04/26/24 06:07 04/26/24 06:07 Labs: Abnormal Lab Results - Last 24 Hours (Table) 04/26/24 04/26/24 04/26/24 Range/Units 01:13 06:07 06:07 WBC 15.29 H (4.50-10.00) X 10*3/uL RBC 2.63 L (4.10-5.20) X 10*6/uL Hgb 7.7 L (12.0-15.0) g/dL Hct 24.2 L (37.2-46.3) % MCHC 31.8 L (32.0-37.0) g/dL RDW 16.2 H (11.5-14.5) % Sodium 134 L (137-145) mmol/L BUN 42 H (7-17) mg/dL Creatinine 1.27 H (0.52-1.04) mg/dL Glucose 164 H (74-99) mg/dL POC Glucose (mg/dL) 202 H (70-110) mg/dL Calcium 8.2 L (8.4-10.2) mg/dL 04/26/24 04/26/24 Range/Units 06:12 11:53 WBC (4.50-10.00) X 10*3/uL RBC (4.10-5.20) X 10*6/uL Hgb (12.0-15.0) g/dL Hct (37.2-46.3) % MCHC (32.0-37.0) g/dL RDW (11.5-14.5) % Sodium (137-145) mmol/L BUN (7-17) mg/dL Creatinine (0.52-1.04) mg/dL Glucose (74-99) mg/dL POC Glucose (mg/dL) 188 H 214 H (70-110) mg/dL Calcium (8.4-10.2) mg/dL Assessment and Plan Assessment: 1. Acute kidney injury, ATN currently nonoliguric. Improved and stable. UA is quite benign. No evidence of obstruction on CT of the abdomen. 2. Non-gap metabolic acidosis secondary to acute kidney injury. 3. Perforated duodenal ulcer status post explorative laparotomy with tato patch on 04/09/2024. Patient had re exploration for leak around the Tato patch on 04/12/2024 with Myles-en-Y reconstruction and Billroth II gastrectomy 4. Status post fall with rib fractures 5. A. fib with RVR maintained on amiodarone 6. Urine retention with Walters catheter replaced. Plan: continue with TPN as per surgery DC Norvasc as blood pressure has been on the lower side Monitor volume status closely. Patient may need to restart Lasix. Repeat labs in a.m. Okay to proceed with PICC line.
--- NOTE | 2024-04-26 13:42 | P.PN ---
Subjective Progress Note Date: 04/26/24 CHIEF COMPLAINT: Perforated duodenal ulcer HISTORY OF PRESENT ILLNESS: Patient is status post exploratory laparotomy with modified Lee patch for perforated duodenal ulcer on 04/09/24. Upper GI had reported a leak and patient taken back to the OR yesterday. She is status post reexploration with Billroth II gastrectomy with Myles-en-Y reconstruction on 04/12/24. Patient has congested cough. There are still concerns for possible aspiration. She is afebrile. White count did go up from 11-15. SHRUTHI drains serous. Patient has bedside sitter. Hgb 9.5 down to 7.7. Patient did have dark stools over the weekend. Patient did receive a dose of IV Lasix yesterday PHYSICAL EXAM: VITAL SIGNS: Reviewed. ABDOMEN: Soft. Nondistended. Incisional dressing clean dry and intact. 2 SHRUTHI drains serous output ASSESSMENT: 1. Perforated duodenal ulcer 2. Severe protein calorie malnutrition 3. Anemia PLAN: -Keep patient n.p.o. -Repeat CBC in a.m. Continue to monitor hemoglobin -Continue TPN for nutrition support -Continue IV antibiotics -Continue IV Protonix BID -Continue supportive care -DVT prophylaxis subcu heparin -CODE STATUS DNR -Continue to optimize pulmonary status Physician Hearing Screener note has been reviewed by physician. Signing provider agrees with the documented findings, assessment, and plan of care. I have personally seen and examined the patient, reviewed the HOSPITAL PERSONNEL DIRECTOR /PAs history, exam and MDM and agree with the assessment and plan as written. Based on total visit time, I have performed more than 50% of the visit. As above: Patient more alert today. Was short of breath earlier today but not currently. Denies pain. JPs both serous. Fever yesterday 100.7 but none since then. X-rays showed no definite gastric distention. No further regurgitation or vomiting. Denies nausea. Continue n.p.o. except ice chips. Recheck labs tomorrow. Monitor hemoglobin which did drop today to 7.7. Will follow. Objective - Vital Signs Vital signs: Vital Signs Temp 98.4 F 04/26/24 07:21 Pulse 70 04/26/24 08:57 Resp 18 04/26/24 07:21 BP 96/57 04/26/24 07:21 Pulse Ox 99 04/26/24 08:49 FiO2 70 04/18/24 14:00 Intake & Output 04/25/24 04/26/24 04/26/24 18:59 06:59 18:59 Intake Total 1055 Output Total 1824 1310 Balance -769 -1310 Weight 55.5 kg Intake: Intake, IV Titration 1055 Amount Sodium Acetate 40 meq 1055 Potassium Chloride 40 meq Calcium Gluconate 1 gm Magnesium Sulfate gm 1 gm Potassium Phosphate 9 mmol In Amino Acid 5%- D15w 1,000 ml @ 60 mls/hr IV .BY DURATION [facility] Rx#: [id number] Output: Drainage 124 60 Lower Left Abdomen 120 60 Medial Abdomen 4 Urine 1700 1250 Other: Voiding Method Indwelling Catheter Indwelling Catheter Indwelling Catheter # Bowel Movements 1 ABP, PAP, CO, CI - Last Documented Arterial Blood Pressure 90/59 - Labs CBC & Chem 7: 04/26/24 06:07 04/26/24 06:07 Labs: Abnormal Lab Results - Last 24 Hours (Table) 04/26/24 04/26/24 04/26/24 Range/Units 01:13 06:07 06:07 WBC 15.29 H (4.50-10.00) X 10*3/uL RBC 2.63 L (4.10-5.20) X 10*6/uL Hgb 7.7 L (12.0-15.0) g/dL Hct 24.2 L (37.2-46.3) % MCHC 31.8 L (32.0-37.0) g/dL RDW 16.2 H (11.5-14.5) % Sodium 134 L (137-145) mmol/L BUN 42 H (7-17) mg/dL Creatinine 1.27 H (0.52-1.04) mg/dL Glucose 164 H (74-99) mg/dL POC Glucose (mg/dL) 202 H (70-110) mg/dL Calcium 8.2 L (8.4-10.2) mg/dL 04/26/24 04/26/24 Range/Units 06:12 11:53 WBC (4.50-10.00) X 10*3/uL RBC (4.10-5.20) X 10*6/uL Hgb (12.0-15.0) g/dL Hct (37.2-46.3) % MCHC (32.0-37.0) g/dL RDW (11.5-14.5) % Sodium (137-145) mmol/L BUN (7-17) mg/dL Creatinine (0.52-1.04) mg/dL Glucose (74-99) mg/dL POC Glucose (mg/dL) 188 H 214 H (70-110) mg/dL Calcium (8.4-10.2) mg/dL
--- NOTE | 2024-04-26 14:15 | P.PN ---
Subjective Progress Note Date: 04/26/24 This is an 88-year-old female, recent history of fall about 2 weeks ago, sustained bruising to her left ribs. Patient was brought in yesterday to the ER mostly with symptoms of weakness, failure to thrive, poor oral intake, and suspected dehydration. Patient was also complaining of cough and shortness of breath, no fever no chills, no nausea no vomiting. In addition the patient had no bowel movement for the last 4 days. Apparently the patient has been experiencing intermittent episodes of confusion for the last 1 year. Workup in the ER included a CT of the abdomen and pelvis, it showed pneumoperitoneum and free fluid. Patient was felt that she has ruptured viscus, she was seen by surgery and she underwent exploratory laparotomy for her pneumoperitoneum, and she was found to have perforated duodenal ulcer. Patient had modified Lee patch and postoperatively the patient was extubated nonetheless she was admitted to the ICU, and this consult was initiated. I saw the patient in the ICU this morning, she is on 4 L nasal cannula, does not seem to be in any distress. She is already on Zosyn, and I added Diflucan. She is on LR at 125 cc/h. Her WBC count is 28.6, electrolytes are normal hemoglobin is 10.7 BUN is 97 creatinine down to 2.45 from 3.27 yesterday. Progress note dated April 10, 2024. 88-year-old female seen yesterday in consultation. She was admitted on April 08, with confusion and weakness. The patient had a repair of a perforated duodenal ulcer on April 09. Today is postop day #1. She is currently seen today in room 261. She is currently on 6 L of oxygen by nasal cannula. She has an NG tube in place. She is getting lactated Ringer's at 125 cc an hour. For atrial fibrillation with a rapid ventricular response, she was started on Cardizem drip at 5 mg an hour, and amiodarone 0.5 mg/min. No new labs today other than a glucose of 154. The labs from yesterday are reviewed. White count was 28.6. Hemoglobin 10.7, platelet count was normal. BUN and creatinine were 97 and 2.45. Chest x-ray suggested bilateral pleural effusions. Progress note dated April 11, 2024. 88-year-old female seen today in room 261. The patient was admitted on April 08, with confusion and weakness. The patient was discovered to have a perforated duodenal ulcer, and had a surgical repair performed on April 09. Today is postop day #2. The patient is currently without distress. She is on room air. NG tube remains in place. She is getting lactated Ringer's at 75 cc an hour. Because of atrial fibrillation and RVR, she continues on amiodarone 0.5 mg/min, and Cardizem at 5 mg an hour. Lab data includes a white count 34.6, hemoglobin 9.1, hematocrit 36.6, and a platelet count 442,000. Sodium 143, potassium 4.1, chlorides 113, CO2 23, BUN 71, creatinine 1.64. Glucose is 134. Albumin is 2.3. Blood cultures are currently negative. No chest x-ray today has been ordered. Progress note dated April 12, 2024. This is an 88-year-old female who is seen in room 261. The patient was admitted back on April 08, with confusion and weakness. She was discovered to have a perforated duodenal ulcer, and had surgical repair performed on April 09. Today is postoperative day #3. The patient is going to have a upper GI study today. She is getting lactated Ringer's at 75 cc an hour, 3 L of oxygen by nasal cannula, Cardizem at 5 mg an hour, and amiodarone at 0.5 mg/min. White count was 37.4, hemoglobin 11.6, hematocrit 38.5, and platelet count was normal. Sodium 145, potassium 3.2, chloride 115, CO2 24, BUN 52, creatinine 1.26. Glucose 123. Calcium 8.2. BUN 2.2. Blood cultures are currently negative. The patient's chest x-ray is stable, with some basilar atelectasis on the right. Upper GI study showed a leak, at the site of patch placement, in the duodenal bulb. Progress note dated April 13, 2024. 88-year-old female seen today in room 261. The patient is postop day #1, status post Billroth II gastrectomy, and Myles-en-Y reconstruction. The patient is currently on the ventilator. Ventilator settings include volume assist-control, rate 16, tidal volume 350, FiO2 40%, PEEP of 5. Blood gases show pO2 128, pCO2 34, pH is 7.43. The blood gases were done on 50% FiO2. The patient is on lactated Ringer's at 75 cc an hour, amiodarone 0.5 mg/min, Cardizem at 5 mg/h, and propofol, is restarted at a low rate. Current labs include a white count 34.8, hemoglobin 9.5, hematocrit 32.2, and a platelet count of 325,000. Sodium 141, potassium 4, chloride 114, CO2 21, BUN 48, creatinine 1.51. Glucose is 133. Calcium is 7. Blood cultures are negative. Chest x-ray shows in addition to endotracheal tube, and central venous line, blunting of the costophrenic angles. Progress note dated April 14, 2024. 88-year-old female seen today in room 261. She is postop day #2, status post Billroth II gastrectomy and Myles-en-Y reconstruction. The patient is on the ventilator. She was maintained on the ventilator overnight. Currently, the patient is on volume assist-control, rate 16, tidal volume 350, FiO2 30%, PEEP of 5. Blood gases show pO2 of 148, pCO2 33, pH is 7.42. Blood gases were done on 40%. The patient continues on amiodarone at 0.5 mg/min, lactated Ringer's at 75 cc an hour, propofol at 35 mcg/kg/min, and TPN at 30 cc an hour, to be increased to 55 cc an hour. Current white count is 25.2, hemoglobin 9.5, hematocrit 35.5, platelet count 362,000. Sodium 142, potassium 3.3, chlorides 112, CO2 25, BUN 50, creatinine 1.83. Albumin level was 1.9. Chest x-ray is largely unchanged. Progress note dated April 15, 2024. The patient is seen again in room 261. The patient was successfully extubated yesterday, April 14. She is currently on room air. She is receiving a saline IV at KVO, and TPN at 40 cc an hour. Current labs include a white count 18.1, hemoglobin 8.9, hematocrit 27.4, and a platelet count of 334,000. Sodium 140, potassium 3.9, chlorides 114, CO2 23, BUN 46, and creatinine 1.36. Glucose is 170. Calcium is 7.2. Phosphorus is 1.9. Magnesium is 2.0. Progress note dated April 16, 2024. The patient is seen today in room 261. She is currently on room air. She continues on amiodarone at 0.5 mg/min. She is getting TPN at 40 cc an hour, and saline at KVO. She does continue on Zosyn. All her cultures are thus far negative. She has no specific complaints today. According to the nurse, she is a bit anxious. Current labs include a sodium 139, potassium 3.9, chlorides 114, CO2 23, BUN 35, and creatinine 1.15. Glucose is 178. Calcium 7.5, phosphorus 2.3, and magnesium is normal. Culture data is negative. Venous Doppler yesterday, shows a superficial venous thrombosis involving the cephalic vein, of the left upper extremity. On today's evaluation of 04/17/2024, the patient is being seen for a follow-up. The patient is recovering from her abdominal surgery. The patient undergone exploratory laparotomy and repair of a perforated duodenal ulcer and she is postop day #8 subsequent the patient required a bit to gastrectomy and the patient is this morning, the patient has awake and alert and she is currently on med oxygen. She is in normal sinus rhythm. She is on TPN which is running at a rate of 40 cc an hour. She remains on IV Zosyn. She is using the incentive spirometer. The patient has 2 SHRUTHI drains. The medial drain has drained approximately 180 cc of serous material and the right lower abdominal drain has put out approximately 10 cc. She has had paroxysmal atrial fibrillation. She remains on amiodarone running at 0.5 mg/min. The white cell count is at 17 with a hemoglobin 9.1 and a platelet count of 431. BUN is 28 with a creatinine of 1. Electrolytes are normal limits. LFTs are normal. Blood sugar is at 183. The patient remains on empiric antibiotic coverage with IV Zosyn. She is being given oral diet today. Should be able also to take her oral medication. Surgical abdominal wound scar is dry clean and intact. He is alert and awake and communicating. 04/18/2024, the patient is on BiPAP. The patient decompensated overnight and became hypoxic. Chest x-ray was done and the patient was found to have large bilateral pleural effusion the patient was given Lasix. Noted the patient was on room air oxygen prior to her being transferred to the medical floor. At that point, the patient was placed on a BiPAP. She was started on the Lasix. This morning, she remains on BiPAP at a pressure of over 5 cm of water and FiO2 was brought up to 70%. No chest pain. She is awake and alert and she is producing adequate amount of urine output. The white cell count is currently up to On her blood work 38.9 with a hemoglobin of 9 and a platelet count of 443. BUN is 32 with a creatinine of 1.2 and sodium levels of 136. I repeated her blood work again and her white cell count is up to 40 with a hemoglobin of 8.8. The patient got transferred to the intensive care unit. Immediately, I performed an ultrasound of the chest that showed bilateral pleural effusion and thoracentesis of the right lung was done, pending follow-up chest x-ray and a total of 600 cc of pleural fluid aspirated from the right lung. Hemodynamically stable. No hypotension. Remains on TPN. Remains on IV Zosyn. Remains on Lasix 20 mg IV every 12 hours. Awake and alert and communicating. On today's evaluation of 04/19/2024, the patient seems to be more comfortable comp ared to yesterday. The patient is currently on 2 L of oxygen by nasal cannula. The patient was at the pulmonary edema and developed bilateral pleural effusions. The patient had a thoracentesis yesterday without any complication. A total of 650 cc of pleural fluid was aspirated from the right lung. A repeat chest x-ray from today showing improvement in the volume status. There is still increased interstitial markings bilaterally and small bilateral pleural effusions in the lung bases bilaterally. The patient remains on IV Lasix. The patient is producing adequate amount of urine output. Nevertheless, the fluid balance over the past 24 hours has been +500 cc. The patient remains on TPN for nutritional support. The patient is receiving TPN at a rate of 60 cc an hour. The patient is also on a combination of Zosyn and Eraxis, and vancomycin.. Oxygenation is improved and the patient is currently off the BiPAP and the patient currently is on 3 L of oxygen by nasal cannula. BUN is 40 with a creatinine of 1.2. Sodium level is 137, white cell count is improved is currently down to 21 with a hemoglobin of 7.5 and a platelet count of 393. No other significant events otherwise and the patient's condition is slightly more stable compared to yesterday. She is awake and alert and communicating. On 04/20/2024, the patient is being seen for a follow-up. The patient is doing well on 3 L of oxygen by nasal cannula. No significant respiratory distress. A follow-up chest x-ray was done today and showed improvement in volume status with small bilateral pleural effusion and some increased interstitial markings bilaterally. Nevertheless, the patient has been diuresed adequately and the patient is currently in negative fluid balance and the patient will be switched to oral Lasix. IV Lasix will be discontinued and the patient has been switched to 40 mg of Lasix on a daily basis. Remains on TPN for nutritional support. She did have a bloody bowel movement, unsure if it is melanotic. This will be monitored as the patient hemoglobin has remeasured at 8.7 on today's evaluation. The white cell count is 15.8. BUN is 48 with a creatinine 1.2 and sodium levels at 135 and a potassium level of 3.1. LFTs are all stable. Antibiotic coverage remains unchanged and the patient remains on a combination of Eraxis and Zosyn. Surgical wound site is dry clean and intact. Renal function remained stable On 04/21/2024, seen the patient for a follow-up. She is currently on room air oxygen. She is having some coffee-ground material in her mouth and I suspect ongoing GI bleed. Note that the patient's hemoglobin had dropped down to 6.6 and the patient does get transfused with packed RBC and a subsequent hemoglobin is up to 8.7 and currently is at 8.1. No acute evidence of any active upper GI bleeding. The patient is awake and alert and communicating. She remains on TPN for nutritional support. Surgical scars are dry clean and intact. Antibiotic coverage with IV Zosyn and Eraxis per IDs recommendations. As mentioned, the patient is postthoracentesis. The patient is currently on diuretics and the patient receiving Lasix 40 mg p.o. daily.. The patient is on room air oxygen. No other significant events overnight. 04/22/2024, the patient is suspected to have some ongoing low-grade GI bleed. She is still having some black stools and coughing out some coffee-ground material. Hemoglobin is at 7.1. Noted that hemoglobin has dropped slightly compared to yesterday is down from 8.1. Respiratory status is stable. She is on 2 L of O2 nasal cannula. Pulse ox 96%. Platelet count is at 397. Remains appropriate for oxygen support. Creatinine is stable at 1.2. BUN is 52 with a sodium of 135. No other significant events overnight. Remains alert and awake and communicating. No confusion. No altered mentation. 04/23/2024, the patient had another bloody neurologic bowel movement that she is coughing out coffee-ground material. I suspect ongoing GI bleed. Noted the repeat hemoglobin from yesterday was at 6.5. The patient was given a unit of packed RBC and the hemoglobin is currently at 9. Platelet counts are stable. Abdominal exam is stable. Creatinine is at 1.2 with a BUN of 53. Sodium is at 135. Repeat hemoglobin will be obtained. She remains on TPN for nutritional support. Overall respiratory status is stable. The patient is currently on 2 L of oxygen by nasal cannula with a pulse ox of 94%. General surgery is on the case. 2023 in follow-up on the regular medical floor. She is currently sitting up in a chair. Awake and alert in no acute distress. She is maintaining O2 saturations in the 90s on 2 L/min per nasal cannula. She has been afebrile. Hemodynamically stable. White count 11.6. Hemoglobin 9.7. Platelets 495. Sodium 136. Potassium 4.4. Bicarb 25. BUN 44. Creatinine 1.03. Glucose 163. Vancomycin trough 13.9. She is status post 2 units of packed red blood cells this admission. She remains on TPN for nutritional support at 60 MLS per hour. She remains on Zosyn and Eraxis. The patient is seen today April 25, 2024 in follow-up on the regular medical floor. She is currently resting fairly comfortably in bed. Awake and alert in no acute distress. She is having issues with urinary retention and a Walters catheter needs to be replaced. She is maintaining good O2 saturations in the 90s on 2 L/min per nasal cannula. She is being nourished with TPN currently at 60 MLS per hour. She remains on Zosyn and Eraxis. Continued on bronchodilators. Acute abdominal x-ray revealed no radiographic evidence for acute abdominal process. Bibasilar small pleural effusions. White count 11.5. Hemoglobin 9.5. Platelets 490. Sodium 133. Potassium 4.1. Bicarb 24. BUN 40. Creatinine 1.10. Glucose 165. Urinalysis clean. The patient is seen today April 26, 2024 in follow-up on the regular medical floor. She is currently resting in bed. Awake and alert in no acute distress. Maintaining O2 saturations in the 90s on 2 L/min per nasal cannula. White count 15.2. Hemoglobin 7.7. Platelets 426. Sodium 134. Potassium 3.8. Bicarb 27. BUN 42. Creatinine 1.27. Glucose 164. She remains on Zosyn and Eraxis. Continued on bronchodilators. Currently in a -2 L balance. Being nourished with TPN and lipids. Objective - Vital Signs Vital signs: Vital Signs Temp 98.4 F 04/26/24 07:21 Pulse 70 04/26/24 08:57 Resp 18 04/26/24 07:21 BP 96/57 04/26/24 07:21 Pulse Ox 99 04/26/24 08:49 FiO2 70 04/18/24 14:00 Intake & Output 04/25/24 04/26/24 04/26/24 18:59 06:59 18:59 Intake Total 1055 Output Total 1824 1310 Balance -769 -1310 Weight 55.5 kg Intake: Intake, IV Titration 1055 Amount Sodium Acetate 40 meq 1055 Potassium Chloride 40 meq Calcium Gluconate 1 gm Magnesium Sulfate gm 1 gm Potassium Phosphate 9 mmol In Amino Acid 5%- D15w 1,000 ml @ 60 mls/hr IV .BY DURATION [facility] Rx#: [id number] Output: Drainage 124 60 Lower Left Abdomen 120 60 Medial Abdomen 4 Urine 1700 1250 Other: Voiding Method Indwelling Catheter Indwelling Catheter Indwelling Catheter # Bowel Movements 1 ABP, PAP, CO, CI - Last Documented Arterial Blood Pressure 90/59 - Exam GENERAL EXAM: Alert, frail 88-year-old female, on 2 L nasal cannula, in no apparent distress. HEAD: Normocephalic. EYES: Normal reaction of pupils, equal size. NOSE: Clear with pink turbinates. THROAT: No erythema or exudates. NECK: No masses, no JVD. CHEST: No chest wall deformity. LUNGS: Equal air entry with no crackles, wheeze, rhonchi or dullness. CVS: S1 and S2 normal with no audible murmur, regular rhythm. ABDOMEN: Abdominal dressing dry and intact. SHRUTHI drains in place. Normal bowel sounds, no guarding or rigidity. SPINE: No scoliosis or deformity SKIN: No rashes CENTRAL NERVOUS SYSTEM: No focal deficits, tone is normal in all 4 extremities. EXTREMITIES: There is no peripheral edema. No clubbing, no cyanosis. Peripheral pulses are intact. - Labs CBC & Chem 7: 04/26/24 06:07 04/26/24 06:07 Labs: Abnormal Lab Results - Last 24 Hours (Table) 04/26/24 04/26/24 04/26/24 Range/Units 01:13 06:07 06:07 WBC 15.29 H (4.50-10.00) X 10*3/uL RBC 2.63 L (4.10-5.20) X 10*6/uL Hgb 7.7 L (12.0-15.0) g/dL Hct 24.2 L (37.2-46.3) % MCHC 31.8 L (32.0-37.0) g/dL RDW 16.2 H (11.5-14.5) % Sodium 134 L (137-145) mmol/L BUN 42 H (7-17) mg/dL Creatinine 1.27 H (0.52-1.04) mg/dL Glucose 164 H (74-99) mg/dL POC Glucose (mg/dL) 202 H (70-110) mg/dL Calcium 8.2 L (8.4-10.2) mg/dL 04/26/24 04/26/24 Range/Units 06:12 11:53 WBC (4.50-10.00) X 10*3/uL RBC (4.10-5.20) X 10*6/uL Hgb (12.0-15.0) g/dL Hct (37.2-46.3) % MCHC (32.0-37.0) g/dL RDW (11.5-14.5) % Sodium (137-145) mmol/L BUN (7-17) mg/dL Creatinine (0.52-1.04) mg/dL Glucose (74-99) mg/dL POC Glucose (mg/dL) 188 H 214 H (70-110) mg/dL Calcium (8.4-10.2) mg/dL Assessment and Plan Assessment: Acute hypoxic respiratory failure, recovered and the patient was extubated on 04/14/2024. The patient was on room air oxygen and the patient got transferred to the medical floor to be readmitted back to the ICU the patient was weaned off the BiPAP and the patient is currently is on 2L nasal cannula Acute leukocytosis, rule out septic event. Currently on IV Zosyn and Eraxis. The white cell count is at 15.2 Acute on chronic anemia consider the possibility of an ongoing GI bleed as the patient is also coughing out some coffee-ground material. Status post 2 units of packed red blood cells. Current hemoglobin 7.7. Status post re-exploration on April 12, 2024 with Billroth II gastrectomy, and Myles-en-Y reconstruction. The patient remains on TPN for nutritional support. Status post exploratory laparotomy, April 09, 2024 repair of perforated duodenal ulcer, and application of a modified Lee patch. Upper GI series, showing leak, at the site of the modified Lee patch. Acute abdominal sepsis, secondary to above and the patient is currently on IV Zosyn and Eraxis. Abdominal series from 04/25/2024 revealed no acute abdominal process Acute atrial fibrillation, with rapid ventricular response. The cardiac rhythm is back to sinus, on oral amiodarone History of splenic hematoma, without rupture. The patient is currently on no anticoagulants Acute dehydration with acute kidney injury. Recovered and the patient renal function is normal Nonanion gap metabolic acidosis, recovered Hypovolemic hyponatremia, recovered Urinary retention requiring reinsertion of indwelling Walters catheter Poor functional performance based on the above-mentioned multiple comorbidities. Plan: The patient was seen and evaluated Labs and medications reviewed Being nourished with TPN and lipids Discontinue central line, request PICC line placement Increase her activity as tolerated DNR/DNI CODE STATUS Plan is for [facility] at discharge I have personally seen and examined the patient, performed the documentation and the assessment and plan as written. Number of minutes spent on the visit: 10.
[2024-04-26 16:32] LABS: Glucose,Whole Blood 145 mg/dL (70-110)
[2024-04-26 23:41] LABS: Glucose,Whole Blood 206 mg/dL (70-110)
[2024-04-27 06:15] LABS: Glucose,Whole Blood 193 mg/dL (70-110)
[2024-04-27] MEDS: IPRATROPIUM-ALBUTEROL 3 ML NEB INHALATION PRN (06:16)
[2024-04-27 07:30] LABS: ALT 33 U/L (4-34); AST 34 U/L (14-36); African American GFR (CKD) 45 (>60 ml/min/1.73 sqM); Albumin 2.4 g/dL (3.5-5.0); Alkaline Phosphatase 103 U/L (38-126); Anion Gap 5 mmol/L; Blood Urea Nitrogen 40 mg/dL (7-17); Calcium 8.4 mg/dL (8.4-10.2); Carbon Dioxide 25 mmol/L (22-30); Chloride 106 mmol/L (98-107); Globulin 2.5 g/dL; Glucose 171 mg/dL (74-99); Magnesium 2.3 mg/dL (1.6-2.3); Non-African American GFR(CKD) 39 (>60 ml/min/1.73 sqM); Phosphorus 3.4 mg/dL (2.5-4.5); Potassium 4.3 mmol/L (3.5-5.1); Sodium 136 mmol/L (137-145); Total Bilirubin 0.5 mg/dL (0.2-1.3); Total Protein 4.9 g/dL (6.3-8.2)
--- NOTE | 2024-04-27 08:26 | P.PN ---
Subjective Progress Note Date: 04/27/24 This is an 80-year-old female with a history of a recent fall about 2 weeks ago who was brought into the emergency department with complaints of weakness and poor oral intake. Patient had an exploratory laparotomy and was found to have a perforated duodenal ulcer with a Lee patch placed. She remains in ICU. She is alert and oriented. She is still significantly weak. 04/11/2024 Patient seen and evaluated sitting in chair at bedside this morning. Yesterday had a salvador catheter placed by urology. Patient reports she is very sore today. 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 Valencia. Patient tolerated well. She remains on mechanical ventilation. 04/17/2024 Patient seen this morning laying in bed comfortably. She remains off of mechanical ventilation. She is still NPO and is on TPN. She reports pain is controlled. 04/18/2024 Patient seen this morning laying in bed with BiPAP on. She does report a little more pain today. She still remains on TPN, however a clear liquid diet has been ordered. 04/24/2024 Patient seen and evaluated this morning sitting up in chair at bedside. She remains on 2 L of oxygen via nasal cannula. She remains on TPN and a full liquid diet. Over the weekend hemoglobin dropped to 6.5 and patient received 1 unit of packed red blood cells. Repeat hemoglobin yesterday was 9.6. Labs pending for today. Patient is still quite weak and does not have much of an appetite. Nursing staff does note patient continues to have liquid black stool and is coughing up black and harris sputum. 04/25/2024 Patient seen and evaluated laying in bed this morning. Salvador was removed yesterday and patient has had high PVR's and patient has been more anxious. Oralia sing waiting to hear back from urology. Hemoglobin stable yesterday, labs for today not back at time of dictation. Surgeon advanced patient's diet yesterday. Vitals are stable. Nurse reports patient is still having black stool. 04/27/2024 Patient seen and evaluated laying in bed this morning with sitter present. She is currently NPO and remains on TPN. Hemoglobin yesterday was 7.7, labs for tod ay not back at time of dictation. Patient does appear more fatigued today. Salvador catheter in place. Objective - Vital Signs Vital signs: Vital Signs Temp 98.1 F 04/27/24 08:00 Pulse 71 04/27/24 08:00 Resp 16 04/27/24 08:00 BP 117/60 04/27/24 08:00 Pulse Ox 93 L 04/27/24 08:00 FiO2 70 04/18/24 14:00 Intake & Output 04/26/24 04/27/24 04/27/24 18:59 06:59 18:59 Intake Total 1066 Output Total 585 890 Balance 481 -890 Weight 55.5 kg Intake: Intake, IV Titration 1066 Amount Mvi, Adult No.4 with Vit 1066 K 10 ml Trace (Conc-1Ml/ Dose) 1 ml Sodium Acetate 40 meq Potassium Chloride 40 meq Calcium Gluconate 1 gm Magnesium Sulfate gm 1 gm Potassium Phosphate 9 mmol In Amino Acid 5%-D15w 1,000 ml @ 60 mls/hr IV .BY DURATION [facility] Rx#: [id number] Output: Drainage 60 90 Lower Left Abdomen 10 10 Medial Abdomen 50 80 Urine 525 800 Other: Voiding Method Indwelling Catheter Indwelling Catheter # Bowel Movements 2 ABP, PAP, CO, CI - Last Documented Arterial Blood Pressure 90/59 - Constitutional General appearance: Present: cooperative, no acute distress - EENT Eyes: Present: PERRLA - Neck Neck: Present: normal ROM. Absent: lymphadenopathy, rigidity - Respiratory Respiratory: bilateral: diminished - Cardiovascular Heart sounds: normal: S1, S2 - Gastrointestinal General gastrointestinal: Present: soft. Absent: tenderness - Integumentary Integumentary: Present: normal, normal turgor - Musculoskeletal Musculoskeletal: Present: generalized weakness - Psychiatric Psychiatric: Present: A&O x's 3 - Labs CBC & Chem 7: 04/26/24 06:07 04/27/24 06:52 Labs: Abnormal Lab Results - Last 24 Hours (Table) 04/26/24 04/26/24 04/26/24 Range/Units 06:07 11:53 16:30 WBC 15.29 H (4.50-10.00) X 10*3/uL RBC 2.63 L (4.10-5.20) X 10*6/uL Hgb 7.7 L (12.0-15.0) g/dL Hct 24.2 L (37.2-46.3) % MCHC 31.8 L (32.0-37.0) g/dL RDW 16.2 H (11.5-14.5) % Sodium (137-145) mmol/L BUN (7-17) mg/dL Creatinine (0.52-1.04) mg/dL Glucose (74-99) mg/dL POC Glucose (mg/dL) 214 H 145 H (70-110) mg/dL Total Protein (6.3-8.2) g/dL Albumin (3.5-5.0) g/dL 04/26/24 04/27/24 04/27/24 Range/Units 23:40 06:13 06:52 WBC (4.50-10.00) X 10*3/uL RBC (4.10-5.20) X 10*6/uL Hgb (12.0-15.0) g/dL Hct (37.2-46.3) % MCHC (32.0-37.0) g/dL RDW (11.5-14.5) % Sodium 136 L (137-145) mmol/L BUN 40 H (7-17) mg/dL Creatinine 1.24 H (0.52-1.04) mg/dL Glucose 171 H (74-99) mg/dL POC Glucose (mg/dL) 206 H 193 H (70-110) mg/dL Total Protein 4.9 L (6.3-8.2) g/dL Albumin 2.4 L (3.5-5.0) g/dL Microbiology - Last 24 Hours (Table) 04/25/24 15:21 Blood Culture - Preliminary Blood Assessment and Plan (1) Dehydration Current Visit: Yes Status: Acute Code(s): E86.0 - DEHYDRATION SNOMED Code(s): 59872959 (2) Acute kidney injury Current Visit: Yes Status: Acute Code(s): N17.9 - ACUTE KIDNEY FAILURE, UNSPECIFIED SNOMED Code(s): 69403201 (3) Hematoma of spleen without rupture of capsule Current Visit: Yes Status: Acute Code(s): D73.5 - INFARCTION OF SPLEEN SN OMED Code(s): 779306800 (4) Fall Current Visit: No Status: Acute Code(s): W19.XXXA - UNSPECIFIED FALL, INITIAL ENCOUNTER SNOMED Code(s): 0596894 (5) Ribs, multiple fractures Current Visit: No Status: Acute Code(s): S22.49XA - MULTIPLE FRACTURES OF RIBS, UNSP SIDE, INIT FOR CLOS FX SNOMED Code(s): 8712360 (6) Perforated duodenal ulcer Current Visit: Yes Status: Acute Code(s): K26.5 - CHRONIC OR UNSPECIFIED DUODENAL ULCER WITH PERFORATION SNOMED Code(s): 27671291 Plan: Check labs in the morning Await repeat hemoglobin from today Appreciate multiple consultants. Patient seen and evaluated by nurse practitioner, physician in agreement with plan
[2024-04-27 10:56] LABS: HCT 26.7 % (37.2-46.3); HGB 8.2 g/dL (12.0-15.0); MCH 29.6 pg (27.0-32.0); MCHC 30.7 g/dL (32.0-37.0); MCV 96.4 FL (80.0-97.0); Mean Platelet Volume 10.8 FL (9.5-12.2); NRBC Per 100 WBC 0 X 10*3/uL (0.00-0.01); Platelet Count 496 X 10*3/uL (140-440); RBC 2.77 X 10*6/uL (4.10-5.20); RDW 16.2 % (11.5-14.5); WBC 11.03 X 10*3/uL (4.50-10.00)
[2024-04-27 11:16] LABS: Glucose,Whole Blood 211 mg/dL (70-110)
--- NOTE | 2024-04-27 12:22 | P.PN ---
Subjective Progress Note Date: 04/27/24 This is an 88-year-old female, recent history of fall about 2 weeks ago, sustained bruising to her left ribs. Patient was brought in yesterday to the ER mostly with symptoms of weakness, failure to thrive, poor oral intake, and suspected dehydration. Patient was also complaining of cough and shortness of breath, no fever no chills, no nausea no vomiting. In addition the patient had no bowel movement for the last 4 days. Apparently the patient has been experiencing intermittent episodes of confusion for the last 1 year. Workup in the ER included a CT of the abdomen and pelvis, it showed pneumoperitoneum and free fluid. Patient was felt that she has ruptured viscus, she was seen by surgery and she underwent exploratory laparotomy for her pneumoperitoneum, and she was found to have perforated duodenal ulcer. Patient had modified Lee patch and postoperatively the patient was extubated nonetheless she was admitted to the ICU, and this consult was initiated. I saw the patient in the ICU this morning, she is on 4 L nasal cannula, does not seem to be in any distress. She is already on Zosyn, and I added Diflucan. She is on LR at 125 cc/h. Her WBC count is 28.6, electrolytes are normal hemoglobin is 10.7 BUN is 97 creatinine down to 2.45 from 3.27 yesterday. Progress note dated April 10, 2024. 88-year-old female seen yesterday in consultation. She was admitted on April 08, with confusion and weakness. The patient had a repair of a perforated duodenal ulcer on April 09. Today is postop day #1. She is currently seen today in room 261. She is currently on 6 L of oxygen by nasal cannula. She has an NG tube in place. She is getting lactated Ringer's at 125 cc an hour. For atrial fibrillation with a rapid ventricular response, she was started on Cardizem drip at 5 mg an hour, and amiodarone 0.5 mg/min. No new labs today other than a glucose of 154. The labs from yesterday are reviewed. White count was 28.6. Hemoglobin 10.7, platelet count was normal. BUN and creatinine were 97 and 2.45. Chest x-ray suggested bilateral pleural effusions. Progress note dated April 11, 2024. 88-year-old female seen today in room 261. The patient was admitted on April 08, with confusion and weakness. The patient was discovered to have a perforated duodenal ulcer, and had a surgical repair performed on April 09. Today is postop day #2. The patient is currently without distress. She is on room air. NG tube remains in place. She is getting lactated Ringer's at 75 cc an hour. Because of atrial fibrillation and RVR, she continues on amiodarone 0.5 mg/min, and Cardizem at 5 mg an hour. Lab data includes a white count 34.6, hemoglobin 9.1, hematocrit 36.6, and a platelet count 442,000. Sodium 143, potassium 4.1, chlorides 113, CO2 23, BUN 71, creatinine 1.64. Glucose is 134. Albumin is 2.3. Blood cultures are currently negative. No chest x-ray today has been ordered. Progress note dated April 12, 2024. This is an 88-year-old female who is seen in room 261. The patient was admitted back on April 08, with confusion and weakness. She was discovered to have a perforated duodenal ulcer, and had surgical repair performed on April 09. Today is postoperative day #3. The patient is going to have a upper GI study today. She is getting lactated Ringer's at 75 cc an hour, 3 L of oxygen by nasal cannula, Cardizem at 5 mg an hour, and amiodarone at 0.5 mg/min. White count was 37.4, hemoglobin 11.6, hematocrit 38.5, and platelet count was normal. Sodium 145, potassium 3.2, chloride 115, CO2 24, BUN 52, creatinine 1.26. Glucose 123. Calcium 8.2. BUN 2.2. Blood cultures are currently negative. The patient's chest x-ray is stable, with some basilar atelectasis on the right. Upper GI study showed a leak, at the site of patch placement, in the duodenal bulb. Progress note dated April 13, 2024. 88-year-old female seen today in room 261. The patient is postop day #1, status post Billroth II gastrectomy, and Myles-en-Y reconstruction. The patient is currently on the ventilator. Ventilator settings include volume assist-control, rate 16, tidal volume 350, FiO2 40%, PEEP of 5. Blood gases show pO2 128, pCO2 34, pH is 7.43. The blood gases were done on 50% FiO2. The patient is on lactated Ringer's at 75 cc an hour, amiodarone 0.5 mg/min, Cardizem at 5 mg/h, and propofol, is restarted at a low rate. Current labs include a white count 34.8, hemoglobin 9.5, hematocrit 32.2, and a platelet count of 325,000. Sodium 141, potassium 4, chloride 114, CO2 21, BUN 48, creatinine 1.51. Glucose is 133. Calcium is 7. Blood cultures are negative. Chest x-ray shows in addition to endotracheal tube, and central venous line, blunting of the costophrenic angles. Progress note dated April 14, 2024. 88-year-old female seen today in room 261. She is postop day #2, status post Billroth II gastrectomy and Myles-en-Y reconstruction. The patient is on the ventilator. She was maintained on the ventilator overnight. Currently, the patient is on volume assist-control, rate 16, tidal volume 350, FiO2 30%, PEEP of 5. Blood gases show pO2 of 148, pCO2 33, pH is 7.42. Blood gases were done on 40%. The patient continues on amiodarone at 0.5 mg/min, lactated Ringer's at 75 cc an hour, propofol at 35 mcg/kg/min, and TPN at 30 cc an hour, to be increased to 55 cc an hour. Current white count is 25.2, hemoglobin 9.5, hematocrit 35.5, platelet count 362,000. Sodium 142, potassium 3.3, chlorides 112, CO2 25, BUN 50, creatinine 1.83. Albumin level was 1.9. Chest x-ray is largely unchanged. Progress note dated April 15, 2024. The patient is seen again in room 261. The patient was successfully extubated yesterday, April 14. She is currently on room air. She is receiving a saline IV at KVO, and TPN at 40 cc an hour. Current labs include a white count 18.1, hemoglobin 8.9, hematocrit 27.4, and a platelet count of 334,000. Sodium 140, potassium 3.9, chlorides 114, CO2 23, BUN 46, and creatinine 1.36. Glucose is 170. Calcium is 7.2. Phosphorus is 1.9. Magnesium is 2.0. Progress note dated April 16, 2024. The patient is seen today in room 261. She is currently on room air. She continues on amiodarone at 0.5 mg/min. She is getting TPN at 40 cc an hour, and saline at KVO. She does continue on Zosyn. All her cultures are thus far negative. She has no specific complaints today. According to the nurse, she is a bit anxious. Current labs include a sodium 139, potassium 3.9, chlorides 114, CO2 23, BUN 35, and creatinine 1.15. Glucose is 178. Calcium 7.5, phosphorus 2.3, and magnesium is normal. Culture data is negative. Venous Doppler yesterday, shows a superficial venous thrombosis involving the cephalic vein, of the left upper extremity. On today's evaluation of 04/17/2024, the patient is being seen for a follow-up. The patient is recovering from her abdominal surgery. The patient undergone exploratory laparotomy and repair of a perforated duodenal ulcer and she is postop day #8 subsequent the patient required a bit to gastrectomy and the patient is this morning, the patient has awake and alert and she is currently on med oxygen. She is in normal sinus rhythm. She is on TPN which is running at a rate of 40 cc an hour. She remains on IV Zosyn. She is using the incentive spirometer. The patient has 2 SHRUTHI drains. The medial drain has drained approximately 180 cc of serous material and the right lower abdominal drain has put out approximately 10 cc. She has had paroxysmal atrial fibrillation. She remains on amiodarone running at 0.5 mg/min. The white cell count is at 17 with a hemoglobin 9.1 and a platelet count of 431. BUN is 28 with a creatinine of 1. Electrolytes are normal limits. LFTs are normal. Blood sugar is at 183. The patient remains on empiric antibiotic coverage with IV Zosyn. She is being given oral diet today. Should be able also to take her oral medication. Surgical abdominal wound scar is dry clean and intact. He is alert and awake and communicating. 04/18/2024, the patient is on BiPAP. The patient decompensated overnight and became hypoxic. Chest x-ray was done and the patient was found to have large bilateral pleural effusion the patient was given Lasix. Noted the patient was on room air oxygen prior to her being transferred to the medical floor. At that point, the patient was placed on a BiPAP. She was started on the Lasix. This morning, she remains on BiPAP at a pressure of over 5 cm of water and FiO2 was brought up to 70%. No chest pain. She is awake and alert and she is producing adequate amount of urine output. The white cell count is currently up to On her blood work 38.9 with a hemoglobin of 9 and a platelet count of 443. BUN is 32 with a creatinine of 1.2 and sodium levels of 136. I repeated her blood work again and her white cell count is up to 40 with a hemoglobin of 8.8. The patient got transferred to the intensive care unit. Immediately, I performed an ultrasound of the chest that showed bilateral pleural effusion and thoracentesis of the right lung was done, pending follow-up chest x-ray and a total of 600 cc of pleural fluid aspirated from the right lung. Hemodynamically stable. No hypotension. Remains on TPN. Remains on IV Zosyn. Remains on Lasix 20 mg IV every 12 hours. Awake and alert and communicating. On today's evaluation of 04/19/2024, the patient seems to be more comfortable comp ared to yesterday. The patient is currently on 2 L of oxygen by nasal cannula. The patient was at the pulmonary edema and developed bilateral pleural effusions. The patient had a thoracentesis yesterday without any complication. A total of 650 cc of pleural fluid was aspirated from the right lung. A repeat chest x-ray from today showing improvement in the volume status. There is still increased interstitial markings bilaterally and small bilateral pleural effusions in the lung bases bilaterally. The patient remains on IV Lasix. The patient is producing adequate amount of urine output. Nevertheless, the fluid balance over the past 24 hours has been +500 cc. The patient remains on TPN for nutritional support. The patient is receiving TPN at a rate of 60 cc an hour. The patient is also on a combination of Zosyn and Eraxis, and vancomycin.. Oxygenation is improved and the patient is currently off the BiPAP and the patient currently is on 3 L of oxygen by nasal cannula. BUN is 40 with a creatinine of 1.2. Sodium level is 137, white cell count is improved is currently down to 21 with a hemoglobin of 7.5 and a platelet count of 393. No other significant events otherwise and the patient's condition is slightly more stable compared to yesterday. She is awake and alert and communicating. On 04/20/2024, the patient is being seen for a follow-up. The patient is doing well on 3 L of oxygen by nasal cannula. No significant respiratory distress. A follow-up chest x-ray was done today and showed improvement in volume status with small bilateral pleural effusion and some increased interstitial markings bilaterally. Nevertheless, the patient has been diuresed adequately and the patient is currently in negative fluid balance and the patient will be switched to oral Lasix. IV Lasix will be discontinued and the patient has been switched to 40 mg of Lasix on a daily basis. Remains on TPN for nutritional support. She did have a bloody bowel movement, unsure if it is melanotic. This will be monitored as the patient hemoglobin has remeasured at 8.7 on today's evaluation. The white cell count is 15.8. BUN is 48 with a creatinine 1.2 and sodium levels at 135 and a potassium level of 3.1. LFTs are all stable. Antibiotic coverage remains unchanged and the patient remains on a combination of Eraxis and Zosyn. Surgical wound site is dry clean and intact. Renal function remained stable On 04/21/2024, seen the patient for a follow-up. She is currently on room air oxygen. She is having some coffee-ground material in her mouth and I suspect ongoing GI bleed. Note that the patient's hemoglobin had dropped down to 6.6 and the patient does get transfused with packed RBC and a subsequent hemoglobin is up to 8.7 and currently is at 8.1. No acute evidence of any active upper GI bleeding. The patient is awake and alert and communicating. She remains on TPN for nutritional support. Surgical scars are dry clean and intact. Antibiotic coverage with IV Zosyn and Eraxis per IDs recommendations. As mentioned, the patient is postthoracentesis. The patient is currently on diuretics and the patient receiving Lasix 40 mg p.o. daily.. The patient is on room air oxygen. No other significant events overnight. 04/22/2024, the patient is suspected to have some ongoing low-grade GI bleed. She is still having some black stools and coughing out some coffee-ground material. Hemoglobin is at 7.1. Noted that hemoglobin has dropped slightly compared to yesterday is down from 8.1. Respiratory status is stable. She is on 2 L of O2 nasal cannula. Pulse ox 96%. Platelet count is at 397. Remains appropriate for oxygen support. Creatinine is stable at 1.2. BUN is 52 with a sodium of 135. No other significant events overnight. Remains alert and awake and communicating. No confusion. No altered mentation. 04/23/2024, the patient had another bloody neurologic bowel movement that she is coughing out coffee-ground material. I suspect ongoing GI bleed. Noted the repeat hemoglobin from yesterday was at 6.5. The patient was given a unit of packed RBC and the hemoglobin is currently at 9. Platelet counts are stable. Abdominal exam is stable. Creatinine is at 1.2 with a BUN of 53. Sodium is at 135. Repeat hemoglobin will be obtained. She remains on TPN for nutritional support. Overall respiratory status is stable. The patient is currently on 2 L of oxygen by nasal cannula with a pulse ox of 94%. General surgery is on the case. 2023 in follow-up on the regular medical floor. She is currently sitting up in a chair. Awake and alert in no acute distress. She is maintaining O2 saturations in the 90s on 2 L/min per nasal cannula. She has been afebrile. Hemodynamically stable. White count 11.6. Hemoglobin 9.7. Platelets 495. Sodium 136. Potassium 4.4. Bicarb 25. BUN 44. Creatinine 1.03. Glucose 163. Vancomycin trough 13.9. She is status post 2 units of packed red blood cells this admission. She remains on TPN for nutritional support at 60 MLS per hour. She remains on Zosyn and Eraxis. The patient is seen today April 25, 2024 in follow-up on the regular medical floor. She is currently resting fairly comfortably in bed. Awake and alert in no acute distress. She is having issues with urinary retention and a Walters catheter needs to be replaced. She is maintaining good O2 saturations in the 90s on 2 L/min per nasal cannula. She is being nourished with TPN currently at 60 MLS per hour. She remains on Zosyn and Eraxis. Continued on bronchodilators. Acute abdominal x-ray revealed no radiographic evidence for acute abdominal process. Bibasilar small pleural effusions. White count 11.5. Hemoglobin 9.5. Platelets 490. Sodium 133. Potassium 4.1. Bicarb 24. BUN 40. Creatinine 1.10. Glucose 165. Urinalysis clean. The patient is seen today April 26, 2024 in follow-up on the regular medical floor. She is currently resting in bed. Awake and alert in no acute distress. Maintaining O2 saturations in the 90s on 2 L/min per nasal cannula. White count 15.2. Hemoglobin 7.7. Platelets 426. Sodium 134. Potassium 3.8. Bicarb 27. BUN 42. Creatinine 1.27. Glucose 164. She remains on Zosyn and Eraxis. Continued on bronchodilators. Currently in a -2 L balance. Being nourished with TPN and lipids. The patient is seen today April 27, 2024 in follow-up on the regular medical floor. She is awake and alert in no acute distress. Resting flat in bed. Denies any worsening shortness of breath, cough or congestion. She is maintaining O2 saturations in the 90s on 2 L/min per nasal cannula. White count 11.0. Hemoglobin 8.2. Platelets 496. Sodium 136. Potassium 4.3. Bicarb 25. BUN 40. Creatinine 1.24. Glucose 171. She did have a PICC line placed yesterday. Triple-lumen catheter has been removed. She remains on TPN and lipids for nutrition. Tolerating a full liquid diet. Continued on Zosyn and Eraxis. Remains on bronchodilators. Objective - Vital Signs Vital signs: Vital Signs Temp 98.1 F 04/27/24 08:00 Pulse 72 04/27/24 12:13 Resp 16 04/27/24 08:00 BP 117/60 04/27/24 08:00 Pulse Ox 93 L 04/27/24 08:00 FiO2 70 04/18/24 14:00 Intake & Output 04/26/24 04/27/24 04/27/24 18:59 06:59 18:59 Intake Total 1066 Output Total 585 890 Balance 481 -890 Weight 55.5 kg Intake: Intake, IV Titration 1066 Amount Mvi, Adult No.4 with Vit 1066 K 10 ml Trace (Conc-1Ml/ Dose) 1 ml Sodium Acetate 40 meq Potassium Chloride 40 meq Calcium Gluconate 1 gm Magnesium Sulfate gm 1 gm Potassium Phosphate 9 mmol In Amino Acid 5%-D15w 1,000 ml @ 60 mls/hr IV .BY DURATION [facility] Rx#: [id number] Output: Drainage 60 90 Lower Left Abdomen 10 10 Medial Abdomen 50 80 Urine 525 800 Other: Voiding Method Indwelling Catheter Indwelling Catheter Indwelling Catheter # Bowel Movements 2 ABP, PAP, CO, CI - Last Documented Arterial Blood Pressure 90/59 - Exam GENERAL EXAM: Alert, frail 88-year-old female, on 2 L nasal cannula, resting comfortably in bed, in no apparent distress. HEAD: Normocephalic. EYES: Normal reaction of pupils, equal size. NOSE: Clear with pink turbinates. THROAT: No erythema or exudates. NECK: No masses, no JVD. CHEST: No chest wall deformity. LUNGS: Equal air entry with no crackles, wheeze, rhonchi or dullness. CVS: S1 and S2 normal with no audible murmur, regular rhythm. ABDOMEN: Abdominal dressing dry and intact. SHRUTHI drains in place. Normal bowel sounds, no guarding or rigidity. SPINE: No scoliosis or deformity SKIN: No rashes CENTRAL NERVOUS SYSTEM: No focal deficits, tone is normal in all 4 extremities. EXTREMITIES: There is no peripheral edema. No clubbing, no cyanosis. Peripheral pulses are intact. - Labs CBC & Chem 7: 04/27/24 06:52 04/27/24 06:52 Labs: Abnormal Lab Results - Last 24 Hours (Table) 04/26/24 04/26/24 04/27/24 Range/Units 16:30 23:40 06:13 WBC (4.50-10.00) X 10*3/uL RBC (4.10-5.20) X 10*6/uL Hgb (12.0-15.0) g/dL Hct (37.2-46.3) % MCHC (32.0-37.0) g/dL RDW (11.5-14.5) % Plt Count (140-440) X 10*3/uL Sodium (137-145) mmol/L BUN (7-17) mg/dL Creatinine (0.52-1.04) mg/dL Glucose (74-99) mg/dL POC Glucose (mg/dL) 145 H 206 H 193 H (70-110) mg/dL Total Protein (6.3-8.2) g/dL Albumin (3.5-5.0) g/dL 04/27/24 04/27/24 04/27/24 Range/Units 06:52 06:52 11:14 WBC 11.03 H (4.50-10.00) X 10*3/uL RBC 2.77 L (4.10-5.20) X 10*6/uL Hgb 8.2 L (12.0-15.0) g/dL Hct 26.7 L (37.2-46.3) % MCHC 30.7 L (32.0-37.0) g/dL RDW 16.2 H (11.5-14.5) % Plt Count 496 H (140-440) X 10*3/uL Sodium 136 L (137-145) mmol/L BUN 40 H (7-17) mg/dL Creatinine 1.24 H (0.52-1.04) mg/dL Glucose 171 H (74-99) mg/dL POC Glucose (mg/dL) 211 H (70-110) mg/dL Total Protein 4.9 L (6.3-8.2) g/dL Albumin 2.4 L (3.5-5.0) g/dL Microbiology - Last 24 Hours (Table) 04/25/24 15:21 Blood Culture - Preliminary Blood Assessment and Plan Assessment: Acute hypoxic respiratory failure, recovered and the patient was extubated on 04/14/2024. The patient was on room air oxygen and the patient got transferred to the medical floor to be readmitted back to the ICU the patient was weaned off the BiPAP and the patient is currently is on 2L nasal cannula Acute leukocytosis, rule out septic event. Currently on IV Zosyn and Eraxis. The white cell count is at 11.0 Acute on chronic anemia consider the possibility of an ongoing GI bleed as the patient is also coughing out some coffee-ground material. Status post 2 units of packed red blood cells. Current hemoglobin 8.2. Status post re-exploration on April 12, 2024 with Billroth II gastrectomy, and Myles-en-Y reconstruction. The patient remains on TPN and lipids for nutritional support. Status post exploratory laparotomy, April 09, 2024 repair of perforated duodenal ulcer, and application of a modified Lee patch. Upper GI series, showing leak, at the site of the modified Lee patch. Acute abdominal sepsis, secondary to above and the patient is currently on IV Zosyn and Eraxis. Abdominal series from 04/25/2024 revealed no acute abdominal process Acute atrial fibrillation, with rapid ventricular response. The cardiac rhythm is back to sinus, on oral amiodarone History of splenic hematoma, without rupture. The patient is currently on no anticoagulants Acute dehydration with acute kidney injury. Recovered and the patient renal function is normal Nonanion gap metabolic acidosis, recovered Hypovolemic hyponatremia, recovered Urinary retention requiring reinsertion of indwelling Walters catheter Poor functional performance based on the above-mentioned multiple comorbidities. Plan: The patient was seen and evaluated Labs and medications reviewed No pulmonary complaints Doing well on 2 L nasal cannula Titrate the FiO2 as tolerated Continue bronchodilators Being nourished with TPN and lipids Diet being advanced per surgical services Discontinued central line, PICC line placed Increase her activity as tolerated DNR/DNI CODE STATUS Plan is for [facility] at discharge This patient was seen independently by the pulmonary nurse practitioner addressing pulmonary issues I have personally seen and examined the patient, performed the documentation and the assessment and plan as written. Number of minutes spent on the visit: 25.
--- NOTE | 2024-04-27 13:21 | P.PN ---
Subjective Patient is seen for follow-up for acute kidney injury. Serum creatinine staying at about 1.1-1.2 mg/dL. Receiving TPN. no significant complaints today. Objective - Vital Signs Vital signs: Vital Signs Temp 98.1 F 04/27/24 08:00 Pulse 72 04/27/24 12:13 Resp 16 04/27/24 08:00 BP 117/60 04/27/24 08:00 Pulse Ox 93 L 04/27/24 08:00 FiO2 70 04/18/24 14:00 Intake & Output 04/26/24 04/27/24 04/27/24 18:59 06:59 18:59 Intake Total 1066 Output Total 585 890 Balance 481 -890 Weight 55.5 kg Intake: Intake, IV Titration 1066 Amount Mvi, Adult No.4 with Vit 1066 K 10 ml Trace (Conc-1Ml/ Dose) 1 ml Sodium Acetate 40 meq Potassium Chloride 40 meq Calcium Gluconate 1 gm Magnesium Sulfate gm 1 gm Potassium Phosphate 9 mmol In Amino Acid 5%-D15w 1,000 ml @ 60 mls/hr IV .BY DURATION [facility] Rx#: [id number] Output: Drainage 60 90 Lower Left Abdomen 10 10 Medial Abdomen 50 80 Urine 525 800 Other: Voiding Method Indwelling Catheter Indwelling Catheter Indwelling Catheter # Bowel Movements 2 ABP, PAP, CO, CI - Last Documented Arterial Blood Pressure 90/59 - Exam patient is awake, comfortable Examination of the heart S1 and S2 Examination of the lungs decreased breath sounds at the bases Abdomen is soft Examination lower extremity shows trace edema ASSOCIATE EMBALMER/FUNERAL DIRECTOR exam shows patient is moving all 4 extremities. - Labs CBC & Chem 7: 04/27/24 06:52 04/27/24 06:52 Labs: Abnormal Lab Results - Last 24 Hours (Table) 04/26/24 04/26/24 04/27/24 Range/Units 16:30 23:40 06:13 WBC (4.50-10.00) X 10*3/uL RBC (4.10-5.20) X 10*6/uL Hgb (12.0-15.0) g/dL Hct (37.2-46.3) % MCHC (32.0-37.0) g/dL RDW (11.5-14.5) % Plt Count (140-440) X 10*3/uL Sodium (137-145) mmol/L BUN (7-17) mg/dL Creatinine (0.52-1.04) mg/dL Glucose (74-99) mg/dL POC Glucose (mg/dL) 145 H 206 H 193 H (70-110) mg/dL Total Protein (6.3-8.2) g/dL Albumin (3.5-5.0) g/dL 04/27/24 04/27/24 04/27/24 Range/Units 06:52 06:52 11:14 WBC 11.03 H (4.50-10.00) X 10*3/uL RBC 2.77 L (4.10-5.20) X 10*6/uL Hgb 8.2 L (12.0-15.0) g/dL Hct 26.7 L (37.2-46.3) % MCHC 30.7 L (32.0-37.0) g/dL RDW 16.2 H (11.5-14.5) % Plt Count 496 H (140-440) X 10*3/uL Sodium 136 L (137-145) mmol/L BUN 40 H (7-17) mg/dL Creatinine 1.24 H (0.52-1.04) mg/dL Glucose 171 H (74-99) mg/dL POC Glucose (mg/dL) 211 H (70-110) mg/dL Total Protein 4.9 L (6.3-8.2) g/dL Albumin 2.4 L (3.5-5.0) g/dL Microbiology - Last 24 Hours (Table) 04/25/24 15:21 Blood Culture - Preliminary Blood Assessment and Plan Assessment: 1. Acute kidney injury, ATN currently nonoliguric. Improved and stable. UA is quite benign. No evidence of obstruction on CT of the abdomen. 2. Non-gap metabolic acidosis secondary to acute kidney injury. 3. Perforated duodenal ulcer status post explorative laparotomy with tato patch on 04/09/2024. Patient had re exploration for leak around the Tato patch on 04/12/2024 with Myles-en-Y reconstruction and Billroth II gastrectomy 4. Status post fall with rib fractures 5. A. fib with RVR maintained on amiodarone 6. Urine retention with Walters catheter replaced. Plan: continue with TPN as per surgery DC [facility] as blood pressure has been on the lower side Monitor volume status closely. Patient may need to restart Lasix. Repeat labs in a.m.
--- NOTE | 2024-04-27 15:46 | P.PN ---
Subjective Progress Note Date: 04/26/24 Principal diagnosis: Reason for follow-up is perforated duodenal ulcer/peritonitis Patient is a 88-year-old female presenting to the hospital abdominal pain diagnosed with the pneumoperitoneum secondary to the perforated jejunal ulcer status post laparotomy and modified Lee patch.Patient is status post reexploration with Billroth II gastrectomy with Myles-en-Y reconstruction completed on 04/12/2024 On today's evaluation that is 04/26/2024,the patient remains to be afebrile, patient is on 2 L nasal cannula supplemental oxygen and denies any shortness of breath no chest pain or cough.Patient denies having any nausea or vomiting, abdominal pain has decreased in intensity no diarrhea reported. Patient white count is 15.8, creatinine is 1.27 Objective - Vital Signs Vital signs: Vital Signs Temp 98.4 F 04/26/24 07:21 Pulse 70 04/26/24 08:57 Resp 18 04/26/24 07:21 BP 96/57 04/26/24 07:21 Pulse Ox 99 04/26/24 08:49 FiO2 70 04/18/24 14:00 Intake & Output 04/25/24 04/26/24 04/26/24 18:59 06:59 18:59 Intake Total 1055 Output Total 1824 1310 Balance -769 -1310 Weight 55.5 kg Intake: Intake, IV Titration 1055 Amount Sodium Acetate 40 meq 1055 Potassium Chloride 40 meq Calcium Gluconate 1 gm Magnesium Sulfate gm 1 gm Potassium Phosphate 9 mmol In Amino Acid 5%- D15w 1,000 ml @ 60 mls/hr IV .BY DURATION [facility] Rx#: [id number] Output: Drainage 124 60 Lower Left Abdomen 120 60 Medial Abdomen 4 Urine 1700 1250 Other: Voiding Method Indwelling Catheter Indwelling Catheter Indwelling Catheter # Bowel Movements 1 ABP, PAP, CO, CI - Last Documented Arterial Blood Pressure 90/59 - Exam GENERAL DESCRIPTION: An elderly female lying in bed in no distress RESPIRATORY SYSTEM: Unlabored breathing , decreased breath sounds at bases HEART: S1 S2 regular rate and rhythm , ABDOMEN: Soft , mild tenderness EXTREMITIES: No edema feet - Labs CBC & Chem 7: 04/27/24 06:52 04/27/24 06:52 Labs: Abnormal Lab Results - Last 24 Hours (Table) 04/26/24 04/26/24 04/26/24 Range/Units 01:13 06:07 06:07 WBC 15.29 H (4.50-10.00) X 10*3/uL RBC 2.63 L (4.10-5.20) X 10*6/uL Hgb 7.7 L (12.0-15.0) g/dL Hct 24.2 L (37.2-46.3) % MCHC 31.8 L (32.0-37.0) g/dL RDW 16.2 H (11.5-14.5) % Sodium 134 L (137-145) mmol/L BUN 42 H (7-17) mg/dL Creatinine 1.27 H (0.52-1.04) mg/dL Glucose 164 H (74-99) mg/dL POC Glucose (mg/dL) 202 H (70-110) mg/dL Calcium 8.2 L (8.4-10.2) mg/dL 04/26/24 04/26/24 Range/Units 06:12 11:53 WBC (4.50-10.00) X 10*3/uL RBC (4.10-5.20) X 10*6/uL Hgb (12.0-15.0) g/dL Hct (37.2-46.3) % MCHC (32.0-37.0) g/dL RDW (11.5-14.5) % Sodium (137-145) mmol/L BUN (7-17) mg/dL Creatinine (0.52-1.04) mg/dL Glucose (74-99) mg/dL POC Glucose (mg/dL) 188 H 214 H (70-110) mg/dL Calcium (8.4-10.2) mg/dL Assessment and Plan (1) Peritonitis Current Visit: Yes Status: Acute Code(s): K65.9 - PERITONITIS, UNSPECIFIED SNOMED Code(s): 31075967 (2) Leukocytosis Current Visit: Yes Status: Acute Code(s): D72.829 - ELEVATED WHITE BLOOD CELL COUNT, UNSPECIFIED SNOMED Code(s): 490710266 (3) Perforated duodenal ulcer Current Visit: Yes Status: Acute Code(s): K26.5 - CHRONIC OR UNSPECIFIED DUODENAL ULCER WITH PERFORATION SNOMED Code(s): 17976127 Plan: 1patient presented to hospital with abdominal pain constipation has been diagnosed with the pneumoperitoneum secondary to perforated duodenal ulcer status post laparotomy and repair of the perforated jejunal ulcer we will need to cover for gram-negative and yeast. 2patient did have upper GI that was suspicious for leak patient is status post reexploration with Billroth II gastrectomy with Myles-en-Y reconstruction along with abdominal cultures which are so far negative 3-patient is afebrile white count is slightly up today however will be monitored closely 4-patient to continue Zosyn and Eraxis and monitor clinical course closely Dictation was produced using [employer] dictation software. please excuse any grammatical, word or spelling errors. Time with Patient: Less than 30
--- NOTE | 2024-04-27 15:47 | P.PN ---
Subjective Progress Note Date: 04/27/24 Principal diagnosis: Reason for follow-up is perforated duodenal ulcer/peritonitis Patient is a 88-year-old female presenting to the hospital abdominal pain diagnosed with the pneumoperitoneum secondary to the perforated jejunal ulcer status post laparotomy and modified Lee patch.Patient is status post reexploration with Billroth II gastrectomy with Myles-en-Y reconstruction completed on 04/12/2024 On today's evaluation that is 04/27/2024, the patient continues to be afebrile, the patient is on room air and breathing comfortably, the Pt denies having any chest pain or cough, the patient denies having any abdominal pain no vomiting or any diarrhea has been reported by the nursing staff, patient mention feeling slightly better today. Patient white count is down to 11.03 with a creatinine 1.24 Objective - Vital Signs Vital signs: Vital Signs Temp 98.1 F 04/27/24 08:00 Pulse 80 04/27/24 08:39 Resp 16 04/27/24 08:00 BP 117/60 04/27/24 08:00 Pulse Ox 93 L 04/27/24 08:00 FiO2 70 04/18/24 14:00 Intake & Output 04/26/24 04/27/24 04/27/24 18:59 06:59 18:59 Intake Total 1066 Output Total 585 890 Balance 481 -890 Weight 55.5 kg Intake: Intake, IV Titration 1066 Amount Mvi, Adult No.4 with Vit 1066 K 10 ml Trace (Conc-1Ml/ Dose) 1 ml Sodium Acetate 40 meq Potassium Chloride 40 meq Calcium Gluconate 1 gm Magnesium Sulfate gm 1 gm Potassium Phosphate 9 mmol In Amino Acid 5%-D15w 1,000 ml @ 60 mls/hr IV .BY DURATION [facility] Rx#: [id number] Output: Drainage 60 90 Lower Left Abdomen 10 10 Medial Abdomen 50 80 Urine 525 800 Other: Voiding Method Indwelling Catheter Indwelling Catheter Indwelling Catheter # Bowel Movements 2 ABP, PAP, CO, CI - Last Documented Arterial Blood Pressure 90/59 - Exam GENERAL DESCRIPTION: An elderly female lying in bed in no distress RESPIRATORY SYSTEM: Unlabored breathing , decreased breath sounds at bases HEART: S1 S2 regular rate and rhythm , ABDOMEN: Soft , mild tenderness EXTREMITIES: No edema feet - Labs CBC & Chem 7: 04/27/24 06:52 04/27/24 06:52 Labs: Abnormal Lab Results - Last 24 Hours (Table) 04/26/24 04/26/24 04/26/24 Range/Units 11:53 16:30 23:40 WBC (4.50-10.00) X 10*3/uL RBC (4.10-5.20) X 10*6/uL Hgb (12.0-15.0) g/dL Hct (37.2-46.3) % MCHC (32.0-37.0) g/dL RDW (11.5-14.5) % Plt Count (140-440) X 10*3/uL Sodium (137-145) mmol/L BUN (7-17) mg/dL Creatinine (0.52-1.04) mg/dL Glucose (74-99) mg/dL POC Glucose (mg/dL) 214 H 145 H 206 H (70-110) mg/dL Total Protein (6.3-8.2) g/dL Albumin (3.5-5.0) g/dL 04/27/24 04/27/24 04/27/24 Range/Units 06:13 06:52 06:52 WBC 11.03 H (4.50-10.00) X 10*3/uL RBC 2.77 L (4.10-5.20) X 10*6/uL Hgb 8.2 L (12.0-15.0) g/dL Hct 26.7 L (37.2-46.3) % MCHC 30.7 L (32.0-37.0) g/dL RDW 16.2 H (11.5-14.5) % Plt Count 496 H (140-440) X 10*3/uL Sodium 136 L (137-145) mmol/L BUN 40 H (7-17) mg/dL Creatinine 1.24 H (0.52-1.04) mg/dL Glucose 171 H (74-99) mg/dL POC Glucose (mg/dL) 193 H (70-110) mg/dL Total Protein 4.9 L (6.3-8.2) g/dL Albumin 2.4 L (3.5-5.0) g/dL 04/27/24 Range/Units 11:14 WBC (4.50-10.00) X 10*3/uL RBC (4.10-5.20) X 10*6/uL Hgb (12.0-15.0) g/dL Hct (37.2-46.3) % MCHC (32.0-37.0) g/dL RDW (11.5-14.5) % Plt Count (140-440) X 10*3/uL Sodium (137-145) mmol/L BUN (7-17) mg/dL Creatinine (0.52-1.04) mg/dL Glucose (74-99) mg/dL POC Glucose (mg/dL) 211 H (70-110) mg/dL Total Protein (6.3-8.2) g/dL Albumin (3.5-5.0) g/dL Microbiology - Last 24 Hours (Table) 04/25/24 15:21 Blood Culture - Preliminary Blood Assessment and Plan (1) Peritonitis Current Visit: Yes Status: Acute Code(s): K65.9 - PERITONITIS, UNSPECIFIED SNOMED Code(s): 10186299 (2) Leukocytosis Current Visit: Yes Status: Acute Code(s): D72.829 - ELEVATED WHITE BLOOD CELL COUNT, UNSPECIFIED SNOMED Code(s): 602576903 (3) Perforated duodenal ulcer Current Visit: Yes Status: Acute Code(s): K26.5 - CHRONIC OR UNSPECIFIED DUODENAL ULCER WITH PERFORATION SNOMED Code(s): 93266533 Plan: 1patient presented to hospital with abdominal pain constipation has been diagnosed with the pneumoperitoneum secondary to perforated duodenal ulcer status post laparotomy and repair of the perforated jejunal ulcer we will need to cover for gram-negative and yeast. 2patient did have upper GI that was suspicious for leak patient is status post reexploration with Billroth II gastrectomy with Myles-en-Y reconstruction along with abdominal cultures which are so far negative 3-patient is afebrile white count is down to 11.3 today 4-patient to continue Zosyn and Eraxis while inpatient waiting for resumption of oral intake and continue supportive care Dictation was produced using [email or web address] dictation software. please excuse any grammatical, word or spelling errors. Time with Patient: Less than 30
--- NOTE | 2024-04-27 15:56 | P.PN ---
Subjective Progress Note Date: 04/27/24 CHIEF COMPLAINT: Perforated duodenal ulcer HISTORY OF PRESENT ILLNESS: Patient is status post exploratory laparotomy with modified Lee patch for perforated duodenal ulcer on 04/09/24. Upper GI had reported a leak and patient taken back to the OR. She is status post reexploration with Billroth II gastrectomy with Myles-en-Y reconstruction on 04/12/24. Patient appears more alert. Able to answer questions. She had a small bowel movement today. Still complains of cough. SHRUTHI drains serous in color. Afebrile. WBC is down from 15-11.03 Hgb is up from 7.7-8.2 PHYSICAL EXAM: VITAL SIGNS: Reviewed. ABDOMEN: Soft. Nondistended. Incisional dressing clean dry and intact. 2 SHRUTHI drains serous output ASSESSMENT: 1. Perforated duodenal ulcer 2. Severe protein calorie malnutrition 3. Anemia PLAN: -Keep patient n.p.o. -Repeat CBC in a.m. -Continue TPN for nutrition support -Continue IV antibiotics -Continue IV Protonix BID -Continue supportive care -DVT prophylaxis subcu heparin -CODE STATUS DNR -Continue to optimize pulmonary status Physician Electronics Specialist note has been reviewed by physician. Signing provider agrees with the documented findings, assessment, and plan of care. I have personally seen and examined the patient, reviewed the EDGE ROLLER /PAs history, exam and MDM and agree with the assessment and plan as written. Based on total visit time, I have performed more than 50% of the visit. As above: Patient doing better today. No shortness of breath currently. Some cough. Nonproductive mostly. Denies nausea or vomiting. No pain. Will order small bowel series for tomorrow morning. Continue antibiotics and antiacid therapy. Continue TPN for now. Objective - Vital Signs Vital signs: Vital Signs Temp 98.7 F 04/27/24 14:00 Pulse 78 04/27/24 14:00 Resp 17 04/27/24 14:00 BP 135/70 04/27/24 14:00 Pulse Ox 93 L 04/27/24 08:00 FiO2 70 04/18/24 14:00 Intake & Output 04/26/24 04/27/24 04/27/24 18:59 06:59 18:59 Intake Total 1066 Output Total 585 890 Balance 481 -890 Weight 55.5 kg 55.5 kg Intake: Intake, IV Titration 1066 Amount Mvi, Adult No.4 with Vit 1066 K 10 ml Trace (Conc-1Ml/ Dose) 1 ml Sodium Acetate 40 meq Potassium Chloride 40 meq Calcium Gluconate 1 gm Magnesium Sulfate gm 1 gm Potassium Phosphate 9 mmol In Amino Acid 5%-D15w 1,000 ml @ 60 mls/hr IV .BY DURATION [facility] Rx#: [id number] Output: Drainage 60 90 Lower Left Abdomen 10 10 Medial Abdomen 50 80 Urine 525 800 Other: Voiding Method Indwelling Catheter Indwelling Catheter Indwelling Catheter # Bowel Movements 2 ABP, PAP, CO, CI - Last Documented Arterial Blood Pressure 90/59 - Labs CBC & Chem 7: 04/27/24 06:52 04/27/24 06:52 Labs: Abnormal Lab Results - Last 24 Hours (Table) 04/26/24 04/26/24 04/27/24 Range/Units 16:30 23:40 06:13 WBC (4.50-10.00) X 10*3/uL RBC (4.10-5.20) X 10*6/uL Hgb (12.0-15.0) g/dL Hct (37.2-46.3) % MCHC (32.0-37.0) g/dL RDW (11.5-14.5) % Plt Count (140-440) X 10*3/uL Sodium (137-145) mmol/L BUN (7-17) mg/dL Creatinine (0.52-1.04) mg/dL Glucose (74-99) mg/dL POC Glucose (mg/dL) 145 H 206 H 193 H (70-110) mg/dL Total Protein (6.3-8.2) g/dL Albumin (3.5-5.0) g/dL 04/27/24 04/27/24 04/27/24 Range/Units 06:52 06:52 11:14 WBC 11.03 H (4.50-10.00) X 10*3/uL RBC 2.77 L (4.10-5.20) X 10*6/uL Hgb 8.2 L (12.0-15.0) g/dL Hct 26.7 L (37.2-46.3) % MCHC 30.7 L (32.0-37.0) g/dL RDW 16.2 H (11.5-14.5) % Plt Count 496 H (140-440) X 10*3/uL Sodium 136 L (137-145) mmol/L BUN 40 H (7-17) mg/dL Creatinine 1.24 H (0.52-1.04) mg/dL Glucose 171 H (74-99) mg/dL POC Glucose (mg/dL) 211 H (70-110) mg/dL Total Protein 4.9 L (6.3-8.2) g/dL Albumin 2.4 L (3.5-5.0) g/dL Microbiology - Last 24 Hours (Table) 04/25/24 15:21 Blood Culture - Preliminary Blood
[2024-04-27 16:31] LABS: Glucose,Whole Blood 183 mg/dL (70-110)
[2024-04-27] MEDS: POTASSIUM CHLORIDE IV SCH (22:13)
[2024-04-27] MEDS: SODIUM ACETATE IV SCH (22:13)
[2024-04-27] MEDS: [UNRECOGNIZED DRUG - OTHER] IV SCH (22:13)
[2024-04-27] MEDS: CALCIUM GLUCONATE IV SCH (22:13)
[2024-04-27 23:52] LABS: Glucose,Whole Blood 209 mg/dL (70-110)
[2024-04-28 06:02] LABS: Glucose,Whole Blood 174 mg/dL (70-110)
[2024-04-28 06:36] LABS: African American GFR (CKD) 50 (>60 ml/min/1.73 sqM); Anion Gap 4 mmol/L; Blood Urea Nitrogen 38 mg/dL (7-17); Calcium 8.5 mg/dL (8.4-10.2); Carbon Dioxide 24 mmol/L (22-30); Chloride 106 mmol/L (98-107); Glucose 153 mg/dL (74-99); Magnesium 2.3 mg/dL (1.6-2.3); Non-African American GFR(CKD) 43 (>60 ml/min/1.73 sqM); Phosphorus 3.1 mg/dL (2.5-4.5); Sodium 134 mmol/L (137-145)
--- NOTE | 2024-04-28 08:25 | P.PN ---
Subjective Principal diagnosis: WEakness. Patient is status post perforated duodenal ulcer with repair. She was transferred to ICU secondary to shortness of breath. Thoracentesis was done. Results are noted. She seems to be in decreased respiratory distress than yesterday. No nausea, vomiting or diarrhea stated. She is n.p.o. at this time. She is struggling with urinary retention. appreciate consultants input Objective - Vital Signs Vital signs: Vital Signs Temp 98.2 F 04/28/24 08:00 Pulse 74 04/28/24 08:00 Resp 12 04/28/24 08:00 BP 151/72 04/28/24 08:00 Pulse Ox 95 04/28/24 08:00 FiO2 70 04/18/24 14:00 Intake & Output 04/27/24 04/28/24 04/28/24 18:59 06:59 18:59 Output Total 825 500 Balance -825 -500 Weight 55.5 kg 58 kg Output: Drainage 50 Lower Left Abdomen 50 Urine 775 500 Other: Voiding Method Indwelling Catheter Indwelling Catheter # Bowel Movements 1 ABP, PAP, CO, CI - Last Documented Arterial Blood Pressure 90/59 - Constitutional General appearance: Present: cooperative, no acute distress - EENT Eyes: Absent: abnormal pupil - Neck Neck: Absent: lymphadenopathy - Respiratory Respiratory: bilateral: diminished - Cardiovascular Rhythm: regular Heart sounds: normal: S1, S2 Abnormal Heart Sounds: Absent: S3 Gallop - Gastrointestinal General gastrointestinal: Present: tenderness - Integumentary Integumentary: Absent: cellulitis - Labs CBC & Chem 7: 04/27/24 06:52 04/28/24 06:05 Labs: Abnormal Lab Results - Last 24 Hours (Table) 04/27/24 04/27/24 04/27/24 Range/Units 06:52 11:14 16:30 WBC 11.03 H (4.50-10.00) X 10*3/uL RBC 2.77 L (4.10-5.20) X 10*6/uL Hgb 8.2 L (12.0-15.0) g/dL Hct 26.7 L (37.2-46.3) % MCHC 30.7 L (32.0-37.0) g/dL RDW 16.2 H (11.5-14.5) % Plt Count 496 H (140-440) X 10*3/uL Sodium (137-145) mmol/L BUN (7-17) mg/dL Creatinine (0.52-1.04) mg/dL Glucose (74-99) mg/dL POC Glucose (mg/dL) 211 H 183 H (70-110) mg/dL 04/27/24 04/28/24 04/28/24 Range/Units 23:50 06:00 06:05 WBC (4.50-10.00) X 10*3/uL RBC (4.10-5.20) X 10*6/uL Hgb (12.0-15.0) g/dL Hct (37.2-46.3) % MCHC (32.0-37.0) g/dL RDW (11.5-14.5) % Plt Count (140-440) X 10*3/uL Sodium 134 L (137-145) mmol/L BUN 38 H (7-17) mg/dL Creatinine 1.13 H (0.52-1.04) mg/dL Glucose 153 H (74-99) mg/dL POC Glucose (mg/dL) 209 H 174 H (70-110) mg/dL Microbiology - Last 24 Hours (Table) 04/25/24 15:21 Blood Culture - Preliminary Blood Assessment and Plan (1) Dehydration Current Visit: Yes Status: Acute Code(s): E86.0 - DEHYDRATION SNOMED Code(s): 83461475 (2) Perforated duodenal ulcer Current Visit: Yes Status: Acute Code(s): K26.5 - CHRONIC OR UNSPECIFIED DUODENAL ULCER WITH PERFORATION SNOMED Code(s): 34716755 (3) Peritonitis Current Visit: Yes Status: Acute Code(s): K65.9 - PERITONITIS, UNSPECIFIED SNOMED Code(s): 70642088 (4) Fall Current Visit: No Status: Inactive Code(s): W19.XXXA - UNSPECIFIED FALL, INITIAL ENCOUNTER SNOMED Code(s): 7992549 (5) Ribs, multiple fractures Current Visit: No Status: Inactive Code(s): S22.49XA - MULTIPLE FRACTURES OF RIBS, UNSP SIDE, INIT FOR CLOS FX SNOMED Code(s): 5091706 Plan: Continue current regimen of treatment. Slowly healing from peritonitis from duodenal ulcer perforation. Check appropriate laboratories per protocol CBC CMP. Will continue to follow. Appreciate multiple consultants input. Urinary retetion on salvador. Advance diet per surgical team Time with Patient: Greater than 30
[2024-04-28 08:52] LABS: HCT 28.7 % (37.2-46.3); HGB 8.7 g/dL (12.0-15.0); MCH 29.2 pg (27.0-32.0); MCHC 30.3 g/dL (32.0-37.0); MCV 96.3 FL (80.0-97.0); Mean Platelet Volume 10.4 FL (9.5-12.2); NRBC Per 100 WBC 0 X 10*3/uL (0.00-0.01); Platelet Count 576 X 10*3/uL (140-440); RBC 2.98 X 10*6/uL (4.10-5.20); RDW 15.9 % (11.5-14.5); WBC 10.66 X 10*3/uL (4.50-10.00)
--- NOTE | 2024-04-28 11:23 | P.PN ---
Subjective Progress Note Date: 04/28/24 CHIEF COMPLAINT: Perforated duodenal ulcer HISTORY OF PRESENT ILLNESS: Patient is status post exploratory laparotomy with modified Lee patch for perforated duodenal ulcer on 04/09/24. Upper GI had reported a leak and patient taken back to the OR. She is status post reexploration with Billroth II gastrectomy with Myles-en-Y reconstruction on 04/12/24. Patient is lying in bed comfortably. She is more alert. Answering questions. She reports her cough is better. She denies any nausea or vomiting. Reports having a bowel movement. Reports her pain is controlled. SHRUTHI drains with serous output. Afebrile. WBC 10.6 Hgb stable 0.7 576 creatinine 1.13 PHYSICAL EXAM: VITAL SIGNS: Reviewed. ABDOMEN: Soft. Nondistended. Incisional dressing clean dry and intact. 2 SHRUTHI drains serous output ASSESSMENT: 1. Perforated duodenal ulcer 2. Severe protein calorie malnutrition 3. Anemia PLAN: -Patient scheduled for upper GI today -Keep patient n.p.o. for now -Continue TPN for nutrition support -Continue IV antibiotics -Continue IV Protonix BID -Continue supportive care -DVT prophylaxis subcu heparin Physician Senior Facilities Manager note has been reviewed by physician. Signing provider agrees with the documented findings, assessment, and plan of care. I have personally seen and examined the patient, reviewed the METAL FABRICATOR WELDER /PAs history, exam and MDM and agree with the assessment and plan as written. Based on total visit time, I have performed more than 50% of the visit. As above: Patient had the upper GI performed earlier showing no significant gastric emptying visualized. I suspect patient has either significant gastric atony or a partial outflow obstruction. Patient has not been vomiting however has been having likely silent aspiration with regurgitation. Clinical scenario discussed with the patient and also Keerthi her caregiver. We discussed the options of nasogastric tube placement with possible upper endoscopy versus consideration for hospice. Patient states she does not want to do any further testing or intervention at this time. I spoke with Keerthi by phone. They will have a conversation later today about whether they would like hospice to come visit. Keep n.p.o. with TPN for now. Objective - Vital Signs Vital signs: Vital Signs Temp 98.2 F 04/28/24 08:00 Pulse 84 04/28/24 08:32 Resp 12 04/28/24 08:00 BP 151/72 04/28/24 08:00 Pulse Ox 98 04/28/24 08:25 FiO2 70 04/18/24 14:00 Intake & Output 04/27/24 04/28/24 04/28/24 18:59 06:59 18:59 Output Total 825 500 690 Balance -825 -500 -690 Weight 55.5 kg 58 kg Output: Drainage 50 40 Lower Left Abdomen 50 40 Urine 775 500 650 Other: Voiding Method Indwelling Catheter Indwelling Catheter Indwelling Catheter # Bowel Movements 1 ABP, PAP, CO, CI - Last Documented Arterial Blood Pressure 90/59 - Labs CBC & Chem 7: 04/28/24 06:05 04/28/24 06:05 Labs: Abnormal Lab Results - Last 24 Hours (Table) 04/27/24 04/27/24 04/28/24 Range/Units 16:30 23:50 06:00 WBC (4.50-10.00) X 10*3/uL RBC (4.10-5.20) X 10*6/uL Hgb (12.0-15.0) g/dL Hct (37.2-46.3) % MCHC (32.0-37.0) g/dL RDW (11.5-14.5) % Plt Count (140-440) X 10*3/uL Sodium (137-145) mmol/L BUN (7-17) mg/dL Creatinine (0.52-1.04) mg/dL Glucose (74-99) mg/dL POC Glucose (mg/dL) 183 H 209 H 174 H (70-110) mg/dL 04/28/24 04/28/24 Range/Units 06:05 06:05 WBC 10.66 H (4.50-10.00) X 10*3/uL RBC 2.98 L (4.10-5.20) X 10*6/uL Hgb 8.7 L (12.0-15.0) g/dL Hct 28.7 L (37.2-46.3) % MCHC 30.3 L (32.0-37.0) g/dL RDW 15.9 H (11.5-14.5) % Plt Count 576 H (140-440) X 10*3/uL Sodium 134 L (137-145) mmol/L BUN 38 H (7-17) mg/dL Creatinine 1.13 H (0.52-1.04) mg/dL Glucose 153 H (74-99) mg/dL POC Glucose (mg/dL) (70-110) mg/dL Microbiology - Last 24 Hours (Table) 04/25/24 15:21 Blood Culture - Preliminary Blood
[2024-04-28 11:43] LABS: Glucose,Whole Blood 163 mg/dL (70-110)
--- NOTE | 2024-04-28 11:53 | P.PN ---
Subjective Progress Note Date: 04/28/24 This is an 88-year-old female, recent history of fall about 2 weeks ago, sustained bruising to her left ribs. Patient was brought in yesterday to the ER mostly with symptoms of weakness, failure to thrive, poor oral intake, and suspected dehydration. Patient was also complaining of cough and shortness of breath, no fever no chills, no nausea no vomiting. In addition the patient had no bowel movement for the last 4 days. Apparently the patient has been experiencing intermittent episodes of confusion for the last 1 year. Workup in the ER included a CT of the abdomen and pelvis, it showed pneumoperitoneum and free fluid. Patient was felt that she has ruptured viscus, she was seen by surgery and she underwent exploratory laparotomy for her pneumoperitoneum, and she was found to have perforated duodenal ulcer. Patient had modified Lee patch and postoperatively the patient was extubated nonetheless she was admitted to the ICU, and this consult was initiated. I saw the patient in the ICU this morning, she is on 4 L nasal cannula, does not seem to be in any distress. She is already on Zosyn, and I added Diflucan. She is on LR at 125 cc/h. Her WBC count is 28.6, electrolytes are normal hemoglobin is 10.7 BUN is 97 creatinine down to 2.45 from 3.27 yesterday. Progress note dated April 10, 2024. 88-year-old female seen yesterday in consultation. She was admitted on April 08, with confusion and weakness. The patient had a repair of a perforated duodenal ulcer on April 09. Today is postop day #1. She is currently seen today in room 261. She is currently on 6 L of oxygen by nasal cannula. She has an NG tube in place. She is getting lactated Ringer's at 125 cc an hour. For atrial fibrillation with a rapid ventricular response, she was started on Cardizem drip at 5 mg an hour, and amiodarone 0.5 mg/min. No new labs today other than a glucose of 154. The labs from yesterday are reviewed. White count was 28.6. Hemoglobin 10.7, platelet count was normal. BUN and creatinine were 97 and 2.45. Chest x-ray suggested bilateral pleural effusions. Progress note dated April 11, 2024. 88-year-old female seen today in room 261. The patient was admitted on April 08, with confusion and weakness. The patient was discovered to have a perforated duodenal ulcer, and had a surgical repair performed on April 09. Today is postop day #2. The patient is currently without distress. She is on room air. NG tube remains in place. She is getting lactated Ringer's at 75 cc an hour. Because of atrial fibrillation and RVR, she continues on amiodarone 0.5 mg/min, and Cardizem at 5 mg an hour. Lab data includes a white count 34.6, hemoglobin 9.1, hematocrit 36.6, and a platelet count 442,000. Sodium 143, potassium 4.1, chlorides 113, CO2 23, BUN 71, creatinine 1.64. Glucose is 134. Albumin is 2.3. Blood cultures are currently negative. No chest x-ray today has been ordered. Progress note dated April 12, 2024. This is an 88-year-old female who is seen in room 261. The patient was admitted back on April 08, with confusion and weakness. She was discovered to have a perforated duodenal ulcer, and had surgical repair performed on April 09. Today is postoperative day #3. The patient is going to have a upper GI study today. She is getting lactated Ringer's at 75 cc an hour, 3 L of oxygen by nasal cannula, Cardizem at 5 mg an hour, and amiodarone at 0.5 mg/min. White count was 37.4, hemoglobin 11.6, hematocrit 38.5, and platelet count was normal. Sodium 145, potassium 3.2, chloride 115, CO2 24, BUN 52, creatinine 1.26. Glucose 123. Calcium 8.2. BUN 2.2. Blood cultures are currently negative. The patient's chest x-ray is stable, with some basilar atelectasis on the right. Upper GI study showed a leak, at the site of patch placement, in the duodenal bulb. Progress note dated April 13, 2024. 88-year-old female seen today in room 261. The patient is postop day #1, status post Billroth II gastrectomy, and Myles-en-Y reconstruction. The patient is currently on the ventilator. Ventilator settings include volume assist-control, rate 16, tidal volume 350, FiO2 40%, PEEP of 5. Blood gases show pO2 128, pCO2 34, pH is 7.43. The blood gases were done on 50% FiO2. The patient is on lactated Ringer's at 75 cc an hour, amiodarone 0.5 mg/min, Cardizem at 5 mg/h, and propofol, is restarted at a low rate. Current labs include a white count 34.8, hemoglobin 9.5, hematocrit 32.2, and a platelet count of 325,000. Sodium 141, potassium 4, chloride 114, CO2 21, BUN 48, creatinine 1.51. Glucose is 133. Calcium is 7. Blood cultures are negative. Chest x-ray shows in addition to endotracheal tube, and central venous line, blunting of the costophrenic angles. Progress note dated April 14, 2024. 88-year-old female seen today in room 261. She is postop day #2, status post Billroth II gastrectomy and Myles-en-Y reconstruction. The patient is on the ventilator. She was maintained on the ventilator overnight. Currently, the patient is on volume assist-control, rate 16, tidal volume 350, FiO2 30%, PEEP of 5. Blood gases show pO2 of 148, pCO2 33, pH is 7.42. Blood gases were done on 40%. The patient continues on amiodarone at 0.5 mg/min, lactated Ringer's at 75 cc an hour, propofol at 35 mcg/kg/min, and TPN at 30 cc an hour, to be increased to 55 cc an hour. Current white count is 25.2, hemoglobin 9.5, hematocrit 35.5, platelet count 362,000. Sodium 142, potassium 3.3, chlorides 112, CO2 25, BUN 50, creatinine 1.83. Albumin level was 1.9. Chest x-ray is largely unchanged. Progress note dated April 15, 2024. The patient is seen again in room 261. The patient was successfully extubated yesterday, April 14. She is currently on room air. She is receiving a saline IV at KVO, and TPN at 40 cc an hour. Current labs include a white count 18.1, hemoglobin 8.9, hematocrit 27.4, and a platelet count of 334,000. Sodium 140, potassium 3.9, chlorides 114, CO2 23, BUN 46, and creatinine 1.36. Glucose is 170. Calcium is 7.2. Phosphorus is 1.9. Magnesium is 2.0. Progress note dated April 16, 2024. The patient is seen today in room 261. She is currently on room air. She continues on amiodarone at 0.5 mg/min. She is getting TPN at 40 cc an hour, and saline at KVO. She does continue on Zosyn. All her cultures are thus far negative. She has no specific complaints today. According to the nurse, she is a bit anxious. Current labs include a sodium 139, potassium 3.9, chlorides 114, CO2 23, BUN 35, and creatinine 1.15. Glucose is 178. Calcium 7.5, phosphorus 2.3, and magnesium is normal. Culture data is negative. Venous Doppler yesterday, shows a superficial venous thrombosis involving the cephalic vein, of the left upper extremity. On today's evaluation of 04/17/2024, the patient is being seen for a follow-up. The patient is recovering from her abdominal surgery. The patient undergone exploratory laparotomy and repair of a perforated duodenal ulcer and she is postop day #8 subsequent the patient required a bit to gastrectomy and the patient is this morning, the patient has awake and alert and she is currently on med oxygen. She is in normal sinus rhythm. She is on TPN which is running at a rate of 40 cc an hour. She remains on IV Zosyn. She is using the incentive spirometer. The patient has 2 SHRUTHI drains. The medial drain has drained approximately 180 cc of serous material and the right lower abdominal drain has put out approximately 10 cc. She has had paroxysmal atrial fibrillation. She remains on amiodarone running at 0.5 mg/min. The white cell count is at 17 with a hemoglobin 9.1 and a platelet count of 431. BUN is 28 with a creatinine of 1. Electrolytes are normal limits. LFTs are normal. Blood sugar is at 183. The patient remains on empiric antibiotic coverage with IV Zosyn. She is being given oral diet today. Should be able also to take her oral medication. Surgical abdominal wound scar is dry clean and intact. He is alert and awake and communicating. 04/18/2024, the patient is on BiPAP. The patient decompensated overnight and became hypoxic. Chest x-ray was done and the patient was found to have large bilateral pleural effusion the patient was given Lasix. Noted the patient was on room air oxygen prior to her being transferred to the medical floor. At that point, the patient was placed on a BiPAP. She was started on the Lasix. This morning, she remains on BiPAP at a pressure of over 5 cm of water and FiO2 was brought up to 70%. No chest pain. She is awake and alert and she is producing adequate amount of urine output. The white cell count is currently up to On her blood work 38.9 with a hemoglobin of 9 and a platelet count of 443. BUN is 32 with a creatinine of 1.2 and sodium levels of 136. I repeated her blood work again and her white cell count is up to 40 with a hemoglobin of 8.8. The patient got transferred to the intensive care unit. Immediately, I performed an ultrasound of the chest that showed bilateral pleural effusion and thoracentesis of the right lung was done, pending follow-up chest x-ray and a total of 600 cc of pleural fluid aspirated from the right lung. Hemodynamically stable. No hypotension. Remains on TPN. Remains on IV Zosyn. Remains on Lasix 20 mg IV every 12 hours. Awake and alert and communicating. On today's evaluation of 04/19/2024, the patient seems to be more comfortable comp ared to yesterday. The patient is currently on 2 L of oxygen by nasal cannula. The patient was at the pulmonary edema and developed bilateral pleural effusions. The patient had a thoracentesis yesterday without any complication. A total of 650 cc of pleural fluid was aspirated from the right lung. A repeat chest x-ray from today showing improvement in the volume status. There is still increased interstitial markings bilaterally and small bilateral pleural effusions in the lung bases bilaterally. The patient remains on IV Lasix. The patient is producing adequate amount of urine output. Nevertheless, the fluid balance over the past 24 hours has been +500 cc. The patient remains on TPN for nutritional support. The patient is receiving TPN at a rate of 60 cc an hour. The patient is also on a combination of Zosyn and Eraxis, and vancomycin.. Oxygenation is improved and the patient is currently off the BiPAP and the patient currently is on 3 L of oxygen by nasal cannula. BUN is 40 with a creatinine of 1.2. Sodium level is 137, white cell count is improved is currently down to 21 with a hemoglobin of 7.5 and a platelet count of 393. No other significant events otherwise and the patient's condition is slightly more stable compared to yesterday. She is awake and alert and communicating. On 04/20/2024, the patient is being seen for a follow-up. The patient is doing well on 3 L of oxygen by nasal cannula. No significant respiratory distress. A follow-up chest x-ray was done today and showed improvement in volume status with small bilateral pleural effusion and some increased interstitial markings bilaterally. Nevertheless, the patient has been diuresed adequately and the patient is currently in negative fluid balance and the patient will be switched to oral Lasix. IV Lasix will be discontinued and the patient has been switched to 40 mg of Lasix on a daily basis. Remains on TPN for nutritional support. She did have a bloody bowel movement, unsure if it is melanotic. This will be monitored as the patient hemoglobin has remeasured at 8.7 on today's evaluation. The white cell count is 15.8. BUN is 48 with a creatinine 1.2 and sodium levels at 135 and a potassium level of 3.1. LFTs are all stable. Antibiotic coverage remains unchanged and the patient remains on a combination of Eraxis and Zosyn. Surgical wound site is dry clean and intact. Renal function remained stable On 04/21/2024, seen the patient for a follow-up. She is currently on room air oxygen. She is having some coffee-ground material in her mouth and I suspect ongoing GI bleed. Note that the patient's hemoglobin had dropped down to 6.6 and the patient does get transfused with packed RBC and a subsequent hemoglobin is up to 8.7 and currently is at 8.1. No acute evidence of any active upper GI bleeding. The patient is awake and alert and communicating. She remains on TPN for nutritional support. Surgical scars are dry clean and intact. Antibiotic coverage with IV Zosyn and Eraxis per IDs recommendations. As mentioned, the patient is postthoracentesis. The patient is currently on diuretics and the patient receiving Lasix 40 mg p.o. daily.. The patient is on room air oxygen. No other significant events overnight. 04/22/2024, the patient is suspected to have some ongoing low-grade GI bleed. She is still having some black stools and coughing out some coffee-ground material. Hemoglobin is at 7.1. Noted that hemoglobin has dropped slightly compared to yesterday is down from 8.1. Respiratory status is stable. She is on 2 L of O2 nasal cannula. Pulse ox 96%. Platelet count is at 397. Remains appropriate for oxygen support. Creatinine is stable at 1.2. BUN is 52 with a sodium of 135. No other significant events overnight. Remains alert and awake and communicating. No confusion. No altered mentation. 04/23/2024, the patient had another bloody neurologic bowel movement that she is coughing out coffee-ground material. I suspect ongoing GI bleed. Noted the repeat hemoglobin from yesterday was at 6.5. The patient was given a unit of packed RBC and the hemoglobin is currently at 9. Platelet counts are stable. Abdominal exam is stable. Creatinine is at 1.2 with a BUN of 53. Sodium is at 135. Repeat hemoglobin will be obtained. She remains on TPN for nutritional support. Overall respiratory status is stable. The patient is currently on 2 L of oxygen by nasal cannula with a pulse ox of 94%. General surgery is on the case. 2023 in follow-up on the regular medical floor. She is currently sitting up in a chair. Awake and alert in no acute distress. She is maintaining O2 saturations in the 90s on 2 L/min per nasal cannula. She has been afebrile. Hemodynamically stable. White count 11.6. Hemoglobin 9.7. Platelets 495. Sodium 136. Potassium 4.4. Bicarb 25. BUN 44. Creatinine 1.03. Glucose 163. Vancomycin trough 13.9. She is status post 2 units of packed red blood cells this admission. She remains on TPN for nutritional support at 60 MLS per hour. She remains on Zosyn and Eraxis. The patient is seen today April 25, 2024 in follow-up on the regular medical floor. She is currently resting fairly comfortably in bed. Awake and alert in no acute distress. She is having issues with urinary retention and a Walters catheter needs to be replaced. She is maintaining good O2 saturations in the 90s on 2 L/min per nasal cannula. She is being nourished with TPN currently at 60 MLS per hour. She remains on Zosyn and Eraxis. Continued on bronchodilators. Acute abdominal x-ray revealed no radiographic evidence for acute abdominal process. Bibasilar small pleural effusions. White count 11.5. Hemoglobin 9.5. Platelets 490. Sodium 133. Potassium 4.1. Bicarb 24. BUN 40. Creatinine 1.10. Glucose 165. Urinalysis clean. The patient is seen today April 26, 2024 in follow-up on the regular medical floor. She is currently resting in bed. Awake and alert in no acute distress. Maintaining O2 saturations in the 90s on 2 L/min per nasal cannula. White count 15.2. Hemoglobin 7.7. Platelets 426. Sodium 134. Potassium 3.8. Bicarb 27. BUN 42. Creatinine 1.27. Glucose 164. She remains on Zosyn and Eraxis. Continued on bronchodilators. Currently in a -2 L balance. Being nourished with TPN and lipids. The patient is seen today April 27, 2024 in follow-up on the regular medical floor. She is awake and alert in no acute distress. Resting flat in bed. Denies any worsening shortness of breath, cough or congestion. She is maintaining O2 saturations in the 90s on 2 L/min per nasal cannula. White count 11.0. Hemoglobin 8.2. Platelets 496. Sodium 136. Potassium 4.3. Bicarb 25. BUN 40. Creatinine 1.24. Glucose 171. She did have a PICC line placed yesterday. Triple-lumen catheter has been removed. She remains on TPN and lipids for nutrition. Tolerating a full liquid diet. Continued on Zosyn and Eraxis. Remains on bronchodilators. The patient is seen today April 28, 2024 in follow-up on the regular medical floor. She is resting comfortably in bed. Awake and alert in no acute distress. She is maintaining O2 saturations in the 90s on 3 L/min per nasal c annula. She remains afebrile. Hemodynamically stable. She is going for an upper GI series this morning. Currently nothing by mouth. Blood and pleural fluid cultures revealed no growth. White count 10.6. Hemoglobin 8.7. Platelets 576. Sodium 134. Potassium 5.0. Bicarb 24. BUN 38. Creatinine 1.13. Glucose 153. She remains on TPN and lipids. Continued on antibiotics in the form of Zosyn. Remains on Eraxis. Continued on bronchodilators. Objective - Vital Signs Vital signs: Vital Signs Temp 98.2 F 04/28/24 08:00 Pulse 84 04/28/24 08:32 Resp 12 04/28/24 08:00 BP 151/72 04/28/24 08:00 Pulse Ox 98 04/28/24 08:25 FiO2 70 04/18/24 14:00 Intake & Output 04/27/24 04/28/24 04/28/24 18:59 06:59 18:59 Output Total 825 500 690 Balance -825 -500 -690 Weight 55.5 kg 58 kg Output: Drainage 50 40 Lower Left Abdomen 50 40 Urine 775 500 650 Other: Voiding Method Indwelling Catheter Indwelling Catheter Indwelling Catheter # Bowel Movements 1 ABP, PAP, CO, CI - Last Documented Arterial Blood Pressure 90/59 - Exam GENERAL EXAM: Alert, frail 88-year-old female, on 3 L nasal cannula, resting in bed, in no apparent distress. HEAD: Normocephalic. EYES: Normal reaction of pupils, equal size. NOSE: Clear with pink turbinates. THROAT: No erythema or exudates. NECK: No masses, no JVD. CHEST: No chest wall deformity. LUNGS: Equal air entry with no crackles, wheeze, rhonchi or dullness. CVS: S1 and S2 normal with no audible murmur, regular rhythm. ABDOMEN: Abdominal dressing dry and intact. SHRUTHI drains in place. Normal bowel so unds, no guarding or rigidity. SPINE: No scoliosis or deformity SKIN: No rashes CENTRAL NERVOUS SYSTEM: No focal deficits, tone is normal in all 4 extremities. EXTREMITIES: There is no peripheral edema. No clubbing, no cyanosis. Peripheral pulses are intact. - Labs CBC & Chem 7: 04/28/24 06:05 04/28/24 06:05 Labs: Abnormal Lab Results - Last 24 Hours (Table) 04/27/24 04/27/24 04/28/24 Range/Units 16:30 23:50 06:00 WBC (4.50-10.00) X 10*3/uL RBC (4.10-5.20) X 10*6/uL Hgb (12.0-15.0) g/dL Hct (37.2-46.3) % MCHC (32.0-37.0) g/dL RDW (11.5-14.5) % Plt Count (140-440) X 10*3/uL Sodium (137-145) mmol/L BUN (7-17) mg/dL Creatinine (0.52-1.04) mg/dL Glucose (74-99) mg/dL POC Glucose (mg/dL) 183 H 209 H 174 H (70-110) mg/dL 04/28/24 04/28/24 04/28/24 Range/Units 06:05 06:05 11:41 WBC 10.66 H (4.50-10.00) X 10*3/uL RBC 2.98 L (4.10-5.20) X 10*6/uL Hgb 8.7 L (12.0-15.0) g/dL Hct 28.7 L (37.2-46.3) % MCHC 30.3 L (32.0-37.0) g/dL RDW 15.9 H (11.5-14.5) % Plt Count 576 H (140-440) X 10*3/uL Sodium 134 L (137-145) mmol/L BUN 38 H (7-17) mg/dL Creatinine 1.13 H (0.52-1.04) mg/dL Glucose 153 H (74-99) mg/dL POC Glucose (mg/dL) 163 H (70-110) mg/dL Microbiology - Last 24 Hours (Table) 04/25/24 15:21 Blood Culture - Preliminary Blood Assessment and Plan Assessment: Acute hypoxic respiratory failure, recovered and the patient was extubated on 04/14/2024. The patient was on room air oxygen and the patient got transferred to the medical floor to be readmitted back to the ICU the patient was weaned off the BiPAP and the patient is currently is on 3 L nasal cannula Acute leukocytosis, rule out septic event. Currently on IV Zosyn and Eraxis. The white cell count is at 10.6 Acute on chronic anemia consider the possibility of an ongoing GI bleed as the patient is also coughing out some coffee-ground material. Status post 2 units of packed red blood cells. Current hemoglobin 8.7 Status post re-exploration on April 12, 2024 with Billroth II gastrectomy, and Myles-en-Y reconstruction. The patient remains on TPN and lipids for nutritional support. Upper GI series performed today April 28, 2024, results pending Status post exploratory laparotomy, April 09, 2024 repair of perforated duodenal ulcer, and application of a modified Lee patch. Upper GI series, showing leak, at the site of the modified Lee patch. Acute abdominal sepsis, secondary to above and the patient is currently on IV Zosyn and Eraxis. Abdominal series from 04/25/2024 revealed no acute abdominal process Acute atrial fibrillation, with rapid ventricular response. The cardiac rhythm is back to sinus, on oral amiodarone History of splenic hematoma, without rupture. The patient is currently on no anticoagulants Acute dehydration with acute kidney injury. Recovered and the patient renal function is normal Nonanion gap metabolic acidosis, recovered Hypovolemic hyponatremia, recovered Urinary retention requiring reinsertion of indwelling Walters catheter Poor functional performance based on the above-mentioned multiple comorbidities. Plan: The patient was seen and evaluated Labs and medications reviewed No pulmonary complaints Titrate the FiO2 as tolerated Continue bronchodilators Being nourished with TPN and lipids Upper GI series performed today, results pending Plan is for [facility] at discharge This patient was seen independently by the pulmonary nurse practitioner addressing pulmonary issues I have personally seen and examined the patient, performed the documentation and the assessment and plan as written. Number of minutes spent on the visit: 23.
[2024-04-28] MEDS: [UNRECOGNIZED DRUG - OTHER] IV SCH (11:54)
[2024-04-28] MEDS: CALCIUM GLUCONATE IV SCH (11:54)
[2024-04-28] MEDS: SODIUM ACETATE IV SCH (11:54)
[2024-04-28] MEDS: POTASSIUM CHLORIDE IV SCH (11:54)
--- NOTE | 2024-04-28 12:00 | FL ---
"EXAMINATION TYPE: FL UGI DATE OF EXAM: 04/28/2024 COMPARISON: None HISTORY: Post Myles-en-Y. TECHNIQUE: A single contrast within UGI study is performed. Exam is limited due to the patient's cynthia bility to cooperate, severe apprehension in mental status. FINDINGS: Fluoroscopy time: 41 seconds. DAP: 3523.43. Images: 121. There is a moderately large hiatal hernia present. Gastroesophageal junction appears normal. There is distention of the stomach with contrast. Free spill into the Myles-en-Y anastomosis is not id entified. No extravasation is identified. Contrast passing through the duodenum is not identified. IMPRESSION: 1. Outlet the stomach outlet obstruction at the duodenum appears to be present. The anastomosis or fr ee spill into the small bowel through the Myles-en-Y is not identified. No extravasation evident. A Yellow level critical message alert has been initiated for Garcia Valencia MD via the [employer] 36 [id number] | Critical Results System on 04/28/2024 11:55 AM. This message alert has been sent to Garcia Valencia MD via the preferences provided by the clinician for the receipt of Radiology Critical Findings. [facility] [place] [id number]."
--- NOTE | 2024-04-28 16:21 | P.PN ---
Subjective Progress Note Date: 04/28/24 Principal diagnosis: Reason for follow-up is perforated duodenal ulcer/peritonitis Patient is a 88-year-old female presenting to the hospital abdominal pain diagnosed with the pneumoperitoneum secondary to the perforated jejunal ulcer status post laparotomy and modified Lee patch.Patient is status post reexploration with Billroth II gastrectomy with Myles-en-Y reconstruction completed on 04/12/2024 On today's evaluation that is 04/28/2024, Patient is afebrile patient is currently on 3 L current oxygen and denies having any shortness of breath, the patient denies any chest pain or cough, the patient denies any nausea vomiting did not have any abdominal pain and did have a bowel movement. Patient white count is 10.66 creatinine is 1.13 Objective - Vital Signs Vital signs: Vital Signs Temp 98.2 F 04/28/24 08:00 Pulse 84 04/28/24 08:32 Resp 12 04/28/24 08:00 BP 151/72 04/28/24 08:00 Pulse Ox 98 04/28/24 08:25 FiO2 70 04/18/24 14:00 Intake & Output 04/27/24 04/28/24 04/28/24 18:59 06:59 18:59 Output Total 825 500 690 Balance -825 -500 -690 Weight 55.5 kg 58 kg Output: Drainage 50 40 Lower Left Abdomen 50 40 Urine 775 500 650 Other: Voiding Method Indwelling Catheter Indwelling Catheter Indwelling Catheter # Bowel Movements 1 ABP, PAP, CO, CI - Last Documented Arterial Blood Pressure 90/59 - Exam GENERAL DESCRIPTION: An elderly female lying in bed in no distress RESPIRATORY SYSTEM: Unlabored breathing , decreased breath sounds at bases HEART: S1 S2 regular rate and rhythm , ABDOMEN: Soft , mild tenderness EXTREMITIES: No edema feet - Labs CBC & Chem 7: 04/28/24 06:05 04/28/24 06:05 Labs: Abnormal Lab Results - Last 24 Hours (Table) 04/27/24 04/27/24 04/27/24 Range/Units 11:14 16:30 23:50 WBC (4.50-10.00) X 10*3/uL RBC (4.10-5.20) X 10*6/uL Hgb (12.0-15.0) g/dL Hct (37.2-46.3) % MCHC (32.0-37.0) g/dL RDW (11.5-14.5) % Plt Count (140-440) X 10*3/uL Sodium (137-145) mmol/L BUN (7-17) mg/dL Creatinine (0.52-1.04) mg/dL Glucose (74-99) mg/dL POC Glucose (mg/dL) 211 H 183 H 209 H (70-110) mg/dL 04/28/24 04/28/24 04/28/24 Range/Units 06:00 06:05 06:05 WBC 10.66 H (4.50-10.00) X 10*3/uL RBC 2.98 L (4.10-5.20) X 10*6/uL Hgb 8.7 L (12.0-15.0) g/dL Hct 28.7 L (37.2-46.3) % MCHC 30.3 L (32.0-37.0) g/dL RDW 15.9 H (11.5-14.5) % Plt Count 576 H (140-440) X 10*3/uL Sodium 134 L (137-145) mmol/L BUN 38 H (7-17) mg/dL Creatinine 1.13 H (0.52-1.04) mg/dL Glucose 153 H (74-99) mg/dL POC Glucose (mg/dL) 174 H (70-110) mg/dL Microbiology - Last 24 Hours (Table) 04/25/24 15:21 Blood Culture - Preliminary Blood Assessment and Plan (1) Peritonitis Current Visit: Yes Status: Acute Code(s): K65.9 - PERITONITIS, UNSPECIFIED SNOMED Code(s): 12736611 (2) Leukocytosis Current Visit: Yes Status: Acute Code(s): D72.829 - ELEVATED WHITE BLOOD CELL COUNT, UNSPECIFIED SNOMED Code(s): 477335584 (3) Perforated duodenal ulcer Current Visit: Yes Status: Acute Code(s): K26.5 - CHRONIC OR UNSPECIFIED DUODENAL ULCER WITH PERFORATION SNOMED Code(s): 63131422 Plan: 1patient presented to hospital with abdominal pain constipation has been diagnosed with the pneumoperitoneum secondary to perforated duodenal ulcer status post laparotomy and repair of the perforated jejunal ulcer we will need to cover for gram-negative and yeast. 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 please excuse any grammatical, word or spelling errors. Time with Patient: Less than 30
--- NOTE | 2024-04-28 16:41 | XR ---
KUB. HISTORY: Follow-up upper GI. COMPARISON: None. TECHNIQUE: Single supine view the abdomen was obtained. FINDINGS: There is contrast within the stomach and within the distal small bowel. There is no definite contrast within the colon. There are multiple surgical drains. There are skin reshma in the midline abdomen indicating recent s urgery. The osseous structures are intact. No suspicious abdominal or pelvic calcifications. IMPRESSION: 1. No evidence of small bowel obstruction. 2. Postsurgical changes as described above.
[2024-04-28 18:09] LABS: Glucose,Whole Blood 177 mg/dL (70-110)
[2024-04-29 00:02] LABS: Glucose,Whole Blood 158 mg/dL (70-110)
[2024-04-29 06:01] LABS: Glucose,Whole Blood 165 mg/dL (70-110)
[2024-04-29 06:30] LABS: ALT 35 U/L (4-34); AST 36 U/L (14-36); African American GFR (CKD) 50 (>60 ml/min/1.73 sqM); Albumin 2.4 g/dL (3.5-5.0); Albumin/Globulin Ratio 0.9; Alkaline Phosphatase 106 U/L (38-126); Anion Gap 4 mmol/L; Blood Urea Nitrogen 35 mg/dL (7-17); Calcium 8.5 mg/dL (8.4-10.2); Carbon Dioxide 23 mmol/L (22-30); Chloride 108 mmol/L (98-107); Globulin 2.6 g/dL; Glucose 148 mg/dL (74-99); Magnesium 2.1 mg/dL (1.6-2.3); Non-African American GFR(CKD) 44 (>60 ml/min/1.73 sqM); Phosphorus 3.4 mg/dL (2.5-4.5); Potassium 5.2 mmol/L (3.5-5.1); Sodium 135 mmol/L (137-145); Total Bilirubin 0.4 mg/dL (0.2-1.3)
[2024-04-29 09:19] LABS: HCT 27.5 % (37.2-46.3); HGB 8.5 g/dL (12.0-15.0); MCH 29.5 pg (27.0-32.0); MCHC 30.9 g/dL (32.0-37.0); MCV 95.5 FL (80.0-97.0); Mean Platelet Volume 10.6 FL (9.5-12.2); NRBC Per 100 WBC 0 X 10*3/uL (0.00-0.01); Platelet Count 582 X 10*3/uL (140-440); RBC 2.88 X 10*6/uL (4.10-5.20); RDW 15.7 % (11.5-14.5); WBC 10.67 X 10*3/uL (4.50-10.00)
--- NOTE | 2024-04-29 10:33 | P.PN ---
Subjective Patient is seen in follow-up for acute kidney injury. Receiving TPN. Renal function stable. Currently receiving breathing treatment. Vital signs are stable. General: No acute distress. HEENT: Head exam is unremarkable. O2 mask noted. LUNGS: No audible rhonchi or wheezes. HEART: Rate and Rhythm are regular. ABDOMEN: Nontender. SHRUTHI drain noted. EXTREMITITES: Trace edema. Objective - Vital Signs Vital signs: Vital Signs Temp 98.1 F 04/29/24 07:41 Pulse 80 04/29/24 10:02 Resp 18 04/29/24 07:41 BP 136/70 04/29/24 07:41 Pulse Ox 98 04/29/24 07:41 FiO2 70 04/18/24 14:00 Intake & Output 04/28/24 04/29/24 04/29/24 18:59 06:59 18:59 Intake Total 1066 Output Total 1265 1385 400 Balance -6533 -319 -400 Weight 51 kg Intake: Intake, IV Titration 1066 Amount Mvi, Adult No.4 with Vit 1066 K 10 ml Trace (Conc-1Ml/ Dose) 1 ml Sodium Acetate 44 meq Potassium Chloride 36 meq Calcium Gluconate 1 gm Magnesium Sulfate gm 1 gm Potassium Phosphate 9 mmol In Amino Acid 5%-D15w 1,000 ml @ 75 mls/hr IV .BY DURATION [facility] Rx#: [id number] Output: Drainage 40 85 Lower Left Abdomen 40 Medial Abdomen 85 Urine 1225 1300 400 Other: Voiding Method Indwelling Catheter Indwelling Catheter # Bowel Movements 1 ABP, PAP, CO, CI - Last Documented Arterial Blood Pressure 90/59 - Labs CBC & Chem 7: 04/29/24 05:36 04/29/24 05:36 Labs: Abnormal Lab Results - Last 24 Hours (Table) 04/28/24 04/28/24 04/29/24 Range/Units 11:41 18:05 00:01 WBC (4.50-10.00) X 10*3/uL RBC (4.10-5.20) X 10*6/uL Hgb (12.0-15.0) g/dL Hct (37.2-46.3) % MCHC (32.0-37.0) g/dL RDW (11.5-14.5) % Plt Count (140-440) X 10*3/uL Sodium (137-145) mmol/L Potassium (3.5-5.1) mmol/L Chloride (98-107) mmol/L BUN (7-17) mg/dL Creatinine (0.52-1.04) mg/dL Glucose (74-99) mg/dL POC Glucose (mg/dL) 163 H 177 H 158 H (70-110) mg/dL ALT (4-34) U/L Total Protein (6.3-8.2) g/dL Albumin (3.5-5.0) g/dL 04/29/24 04/29/24 04/29/24 Range/Units 05:36 05:36 05:59 WBC 10.67 H (4.50-10.00) X 10*3/uL RBC 2.88 L (4.10-5.20) X 10*6/uL Hgb 8.5 L (12.0-15.0) g/dL Hct 27.5 L (37.2-46.3) % MCHC 30.9 L (32.0-37.0) g/dL RDW 15.7 H (11.5-14.5) % Plt Count 582 H (140-440) X 10*3/uL Sodium 135 L (137-145) mmol/L Potassium 5.2 H (3.5-5.1) mmol/L Chloride 108 H (98-107) mmol/L BUN 35 H (7-17) mg/dL Creatinine 1.12 H (0.52-1.04) mg/dL Glucose 148 H (74-99) mg/dL POC Glucose (mg/dL) 165 H (70-110) mg/dL ALT 35 H (4-34) U/L Total Protein 5.0 L (6.3-8.2) g/dL Albumin 2.4 L (3.5-5.0) g/dL Microbiology - Last 24 Hours (Table) 04/25/24 15:21 Blood Culture - Preliminary Blood Assessment and Plan Plan: Assessment: 1. Acute kidney injury secondary to hemodynamic ATN. Renal function worse from diuresis. Creatinine stable at 1.12 today. Unknown baseline renal function. UA fairly benign. No hydronephrosis noted on kidney ultrasound. 2. A-fib with RVR status post amiodarone drip. Now on oral amiodarone and Lopressor. 3. Perforated duodenal ulcer status post exploratory laparotomy with modified Lee patch April 09, 2024 with reexploration on April 12, 2024. Surgery following. 4. Metabolic acidosis secondary to acute kidney injury. Stable. 5. Hypophosphatemia from poor intake. Replaced. Improved. 6. Acute hypoxic respiratory failure. Now on nasal cannula. 7. Volume overload. Improved with diuresis. 8. Hypokalemia from diuresis. Resolved. Plan: Maintain TPN per surgery. Lower potassium in TPN. Continue to monitor renal function and urine output. Avoid nephrotoxins.
--- NOTE | 2024-04-29 11:08 | P.PN ---
Subjective Progress Note Date: 04/29/24 This is an 88-year-old female, recent history of fall about 2 weeks ago, sustained bruising to her left ribs. Patient was brought in yesterday to the ER mostly with symptoms of weakness, failure to thrive, poor oral intake, and suspected dehydration. Patient was also complaining of cough and shortness of breath, no fever no chills, no nausea no vomiting. In addition the patient had no bowel movement for the last 4 days. Apparently the patient has been experiencing intermittent episodes of confusion for the last 1 year. Workup in the ER included a CT of the abdomen and pelvis, it showed pneumoperitoneum and free fluid. Patient was felt that she has ruptured viscus, she was seen by surgery and she underwent exploratory laparotomy for her pneumoperitoneum, and she was found to have perforated duodenal ulcer. Patient had modified Lee patch and postoperatively the patient was extubated nonetheless she was admitted to the ICU, and this consult was initiated. I saw the patient in the ICU this morning, she is on 4 L nasal cannula, does not seem to be in any distress. She is already on Zosyn, and I added Diflucan. She is on LR at 125 cc/h. Her WBC count is 28.6, electrolytes are normal hemoglobin is 10.7 BUN is 97 creatinine down to 2.45 from 3.27 yesterday. Progress note dated April 10, 2024. 88-year-old female seen yesterday in consultation. She was admitted on April 08, with confusion and weakness. The patient had a repair of a perforated duodenal ulcer on April 09. Today is postop day #1. She is currently seen today in room 261. She is currently on 6 L of oxygen by nasal cannula. She has an NG tube in place. She is getting lactated Ringer's at 125 cc an hour. For atrial fibrillation with a rapid ventricular response, she was started on Cardizem drip at 5 mg an hour, and amiodarone 0.5 mg/min. No new labs today other than a glucose of 154. The labs from yesterday are reviewed. White count was 28.6. Hemoglobin 10.7, platelet count was normal. BUN and creatinine were 97 and 2.45. Chest x-ray suggested bilateral pleural effusions. Progress note dated April 11, 2024. 88-year-old female seen today in room 261. The patient was admitted on April 08, with confusion and weakness. The patient was discovered to have a perforated duodenal ulcer, and had a surgical repair performed on April 09. Today is postop day #2. The patient is currently without distress. She is on room air. NG tube remains in place. She is getting lactated Ringer's at 75 cc an hour. Because of atrial fibrillation and RVR, she continues on amiodarone 0.5 mg/min, and Cardizem at 5 mg an hour. Lab data includes a white count 34.6, hemoglobin 9.1, hematocrit 36.6, and a platelet count 442,000. Sodium 143, potassium 4.1, chlorides 113, CO2 23, BUN 71, creatinine 1.64. Glucose is 134. Albumin is 2.3. Blood cultures are currently negative. No chest x-ray today has been ordered. Progress note dated April 12, 2024. This is an 88-year-old female who is seen in room 261. The patient was admitted back on April 08, with confusion and weakness. She was discovered to have a perforated duodenal ulcer, and had surgical repair performed on April 09. Today is postoperative day #3. The patient is going to have a upper GI study today. She is getting lactated Ringer's at 75 cc an hour, 3 L of oxygen by nasal cannula, Cardizem at 5 mg an hour, and amiodarone at 0.5 mg/min. White count was 37.4, hemoglobin 11.6, hematocrit 38.5, and platelet count was normal. Sodium 145, potassium 3.2, chloride 115, CO2 24, BUN 52, creatinine 1.26. Glucose 123. Calcium 8.2. BUN 2.2. Blood cultures are currently negative. The patient's chest x-ray is stable, with some basilar atelectasis on the right. Upper GI study showed a leak, at the site of patch placement, in the duodenal bulb. Progress note dated April 13, 2024. 88-year-old female seen today in room 261. The patient is postop day #1, status post Billroth II gastrectomy, and Myles-en-Y reconstruction. The patient is currently on the ventilator. Ventilator settings include volume assist-control, rate 16, tidal volume 350, FiO2 40%, PEEP of 5. Blood gases show pO2 128, pCO2 34, pH is 7.43. The blood gases were done on 50% FiO2. The patient is on lactated Ringer's at 75 cc an hour, amiodarone 0.5 mg/min, Cardizem at 5 mg/h, and propofol, is restarted at a low rate. Current labs include a white count 34.8, hemoglobin 9.5, hematocrit 32.2, and a platelet count of 325,000. Sodium 141, potassium 4, chloride 114, CO2 21, BUN 48, creatinine 1.51. Glucose is 133. Calcium is 7. Blood cultures are negative. Chest x-ray shows in addition to endotracheal tube, and central venous line, blunting of the costophrenic angles. Progress note dated April 14, 2024. 88-year-old female seen today in room 261. She is postop day #2, status post Billroth II gastrectomy and Myles-en-Y reconstruction. The patient is on the ventilator. She was maintained on the ventilator overnight. Currently, the patient is on volume assist-control, rate 16, tidal volume 350, FiO2 30%, PEEP of 5. Blood gases show pO2 of 148, pCO2 33, pH is 7.42. Blood gases were done on 40%. The patient continues on amiodarone at 0.5 mg/min, lactated Ringer's at 75 cc an hour, propofol at 35 mcg/kg/min, and TPN at 30 cc an hour, to be increased to 55 cc an hour. Current white count is 25.2, hemoglobin 9.5, hematocrit 35.5, platelet count 362,000. Sodium 142, potassium 3.3, chlorides 112, CO2 25, BUN 50, creatinine 1.83. Albumin level was 1.9. Chest x-ray is largely unchanged. Progress note dated April 15, 2024. The patient is seen again in room 261. The patient was successfully extubated yesterday, April 14. She is currently on room air. She is receiving a saline IV at KVO, and TPN at 40 cc an hour. Current labs include a white count 18.1, hemoglobin 8.9, hematocrit 27.4, and a platelet count of 334,000. Sodium 140, potassium 3.9, chlorides 114, CO2 23, BUN 46, and creatinine 1.36. Glucose is 170. Calcium is 7.2. Phosphorus is 1.9. Magnesium is 2.0. Progress note dated April 16, 2024. The patient is seen today in room 261. She is currently on room air. She continues on amiodarone at 0.5 mg/min. She is getting TPN at 40 cc an hour, and saline at KVO. She does continue on Zosyn. All her cultures are thus far negative. She has no specific complaints today. According to the nurse, she is a bit anxious. Current labs include a sodium 139, potassium 3.9, chlorides 114, CO2 23, BUN 35, and creatinine 1.15. Glucose is 178. Calcium 7.5, phosphorus 2.3, and magnesium is normal. Culture data is negative. Venous Doppler yesterday, shows a superficial venous thrombosis involving the cephalic vein, of the left upper extremity. On today's evaluation of 04/17/2024, the patient is being seen for a follow-up. The patient is recovering from her abdominal surgery. The patient undergone exploratory laparotomy and repair of a perforated duodenal ulcer and she is postop day #8 subsequent the patient required a bit to gastrectomy and the patient is this morning, the patient has awake and alert and she is currently on med oxygen. She is in normal sinus rhythm. She is on TPN which is running at a rate of 40 cc an hour. She remains on IV Zosyn. She is using the incentive spirometer. The patient has 2 SHRUTHI drains. The medial drain has drained approximately 180 cc of serous material and the right lower abdominal drain has put out approximately 10 cc. She has had paroxysmal atrial fibrillation. She remains on amiodarone running at 0.5 mg/min. The white cell count is at 17 with a hemoglobin 9.1 and a platelet count of 431. BUN is 28 with a creatinine of 1. Electrolytes are normal limits. LFTs are normal. Blood sugar is at 183. The patient remains on empiric antibiotic coverage with IV Zosyn. She is being given oral diet today. Should be able also to take her oral medication. Surgical abdominal wound scar is dry clean and intact. He is alert and awake and communicating. 04/18/2024, the patient is on BiPAP. The patient decompensated overnight and became hypoxic. Chest x-ray was done and the patient was found to have large bilateral pleural effusion the patient was given Lasix. Noted the patient was on room air oxygen prior to her being transferred to the medical floor. At that point, the patient was placed on a BiPAP. She was started on the Lasix. This morning, she remains on BiPAP at a pressure of over 5 cm of water and FiO2 was brought up to 70%. No chest pain. She is awake and alert and she is producing adequate amount of urine output. The white cell count is currently up to On her blood work 38.9 with a hemoglobin of 9 and a platelet count of 443. BUN is 32 with a creatinine of 1.2 and sodium levels of 136. I repeated her blood work again and her white cell count is up to 40 with a hemoglobin of 8.8. The patient got transferred to the intensive care unit. Immediately, I performed an ultrasound of the chest that showed bilateral pleural effusion and thoracentesis of the right lung was done, pending follow-up chest x-ray and a total of 600 cc of pleural fluid aspirated from the right lung. Hemodynamically stable. No hypotension. Remains on TPN. Remains on IV Zosyn. Remains on Lasix 20 mg IV every 12 hours. Awake and alert and communicating. On today's evaluation of 04/19/2024, the patient seems to be more comfortable comp ared to yesterday. The patient is currently on 2 L of oxygen by nasal cannula. The patient was at the pulmonary edema and developed bilateral pleural effusions. The patient had a thoracentesis yesterday without any complication. A total of 650 cc of pleural fluid was aspirated from the right lung. A repeat chest x-ray from today showing improvement in the volume status. There is still increased interstitial markings bilaterally and small bilateral pleural effusions in the lung bases bilaterally. The patient remains on IV Lasix. The patient is producing adequate amount of urine output. Nevertheless, the fluid balance over the past 24 hours has been +500 cc. The patient remains on TPN for nutritional support. The patient is receiving TPN at a rate of 60 cc an hour. The patient is also on a combination of Zosyn and Eraxis, and vancomycin.. Oxygenation is improved and the patient is currently off the BiPAP and the patient currently is on 3 L of oxygen by nasal cannula. BUN is 40 with a creatinine of 1.2. Sodium level is 137, white cell count is improved is currently down to 21 with a hemoglobin of 7.5 and a platelet count of 393. No other significant events otherwise and the patient's condition is slightly more stable compared to yesterday. She is awake and alert and communicating. On 04/20/2024, the patient is being seen for a follow-up. The patient is doing well on 3 L of oxygen by nasal cannula. No significant respiratory distress. A follow-up chest x-ray was done today and showed improvement in volume status with small bilateral pleural effusion and some increased interstitial markings bilaterally. Nevertheless, the patient has been diuresed adequately and the patient is currently in negative fluid balance and the patient will be switched to oral Lasix. IV Lasix will be discontinued and the patient has been switched to 40 mg of Lasix on a daily basis. Remains on TPN for nutritional support. She did have a bloody bowel movement, unsure if it is melanotic. This will be monitored as the patient hemoglobin has remeasured at 8.7 on today's evaluation. The white cell count is 15.8. BUN is 48 with a creatinine 1.2 and sodium levels at 135 and a potassium level of 3.1. LFTs are all stable. Antibiotic coverage remains unchanged and the patient remains on a combination of Eraxis and Zosyn. Surgical wound site is dry clean and intact. Renal function remained stable On 04/21/2024, seen the patient for a follow-up. She is currently on room air oxygen. She is having some coffee-ground material in her mouth and I suspect ongoing GI bleed. Note that the patient's hemoglobin had dropped down to 6.6 and the patient does get transfused with packed RBC and a subsequent hemoglobin is up to 8.7 and currently is at 8.1. No acute evidence of any active upper GI bleeding. The patient is awake and alert and communicating. She remains on TPN for nutritional support. Surgical scars are dry clean and intact. Antibiotic coverage with IV Zosyn and Eraxis per IDs recommendations. As mentioned, the patient is postthoracentesis. The patient is currently on diuretics and the patient receiving Lasix 40 mg p.o. daily.. The patient is on room air oxygen. No other significant events overnight. 04/22/2024, the patient is suspected to have some ongoing low-grade GI bleed. She is still having some black stools and coughing out some coffee-ground material. Hemoglobin is at 7.1. Noted that hemoglobin has dropped slightly compared to yesterday is down from 8.1. Respiratory status is stable. She is on 2 L of O2 nasal cannula. Pulse ox 96%. Platelet count is at 397. Remains appropriate for oxygen support. Creatinine is stable at 1.2. BUN is 52 with a sodium of 135. No other significant events overnight. Remains alert and awake and communicating. No confusion. No altered mentation. 04/23/2024, the patient had another bloody neurologic bowel movement that she is coughing out coffee-ground material. I suspect ongoing GI bleed. Noted the repeat hemoglobin from yesterday was at 6.5. The patient was given a unit of packed RBC and the hemoglobin is currently at 9. Platelet counts are stable. Abdominal exam is stable. Creatinine is at 1.2 with a BUN of 53. Sodium is at 135. Repeat hemoglobin will be obtained. She remains on TPN for nutritional support. Overall respiratory status is stable. The patient is currently on 2 L of oxygen by nasal cannula with a pulse ox of 94%. General surgery is on the case. 2023 in follow-up on the regular medical floor. She is currently sitting up in a chair. Awake and alert in no acute distress. She is maintaining O2 saturations in the 90s on 2 L/min per nasal cannula. She has been afebrile. Hemodynamically stable. White count 11.6. Hemoglobin 9.7. Platelets 495. Sodium 136. Potassium 4.4. Bicarb 25. BUN 44. Creatinine 1.03. Glucose 163. Vancomycin trough 13.9. She is status post 2 units of packed red blood cells this admission. She remains on TPN for nutritional support at 60 MLS per hour. She remains on Zosyn and Eraxis. The patient is seen today April 25, 2024 in follow-up on the regular medical floor. She is currently resting fairly comfortably in bed. Awake and alert in no acute distress. She is having issues with urinary retention and a Walters catheter needs to be replaced. She is maintaining good O2 saturations in the 90s on 2 L/min per nasal cannula. She is being nourished with TPN currently at 60 MLS per hour. She remains on Zosyn and Eraxis. Continued on bronchodilators. Acute abdominal x-ray revealed no radiographic evidence for acute abdominal process. Bibasilar small pleural effusions. White count 11.5. Hemoglobin 9.5. Platelets 490. Sodium 133. Potassium 4.1. Bicarb 24. BUN 40. Creatinine 1.10. Glucose 165. Urinalysis clean. The patient is seen today April 26, 2024 in follow-up on the regular medical floor. She is currently resting in bed. Awake and alert in no acute distress. Maintaining O2 saturations in the 90s on 2 L/min per nasal cannula. White count 15.2. Hemoglobin 7.7. Platelets 426. Sodium 134. Potassium 3.8. Bicarb 27. BUN 42. Creatinine 1.27. Glucose 164. She remains on Zosyn and Eraxis. Continued on bronchodilators. Currently in a -2 L balance. Being nourished with TPN and lipids. The patient is seen today April 27, 2024 in follow-up on the regular medical floor. She is awake and alert in no acute distress. Resting flat in bed. Denies any worsening shortness of breath, cough or congestion. She is maintaining O2 saturations in the 90s on 2 L/min per nasal cannula. White count 11.0. Hemoglobin 8.2. Platelets 496. Sodium 136. Potassium 4.3. Bicarb 25. BUN 40. Creatinine 1.24. Glucose 171. She did have a PICC line placed yesterday. Triple-lumen catheter has been removed. She remains on TPN and lipids for nutrition. Tolerating a full liquid diet. Continued on Zosyn and Eraxis. Remains on bronchodilators. The patient is seen today April 28, 2024 in follow-up on the regular medical floor. She is resting comfortably in bed. Awake and alert in no acute distress. She is maintaining O2 saturations in the 90s on 3 L/min per nasal c annula. She remains afebrile. Hemodynamically stable. She is going for an upper GI series this morning. Currently nothing by mouth. Blood and pleural fluid cultures revealed no growth. White count 10.6. Hemoglobin 8.7. Platelets 576. Sodium 134. Potassium 5.0. Bicarb 24. BUN 38. Creatinine 1.13. Glucose 153. She remains on TPN and lipids. Continued on antibiotics in the form of Zosyn. Remains on Eraxis. Continued on bronchodilators. The patient is seen today April 29, 2024 in follow-up on the regular medical floor. She is resting in bed. Awake and alert in no acute distress. She is maintaining good O2 saturations in the 90s on 3 L/min per nasal cannula. Afebrile. Hemodynamically stable. Upper GI series did reveal distention of the stomach with outlet obstruction at the duodenum. The anastomosis or free spill into the small bowel through the Myles-en-Y is not identified. No extravasation evident. KUB revealed no evidence of small bowel obstruction. White count 10.6. Hemoglobin 8.5. Platelets 582. Sodium 135. Potassium 5.2. Bicarb 23. BUN 35. Creatinine 1.12. Glucose 148. She remains on Eraxis and Zosyn. Remains on TPN and lipids. According to nursing staff there are no plans for surgical intervention at this point. Hospice has been recommended. Objective - Vital Signs Vital signs: Vital Signs Temp 98.1 F 04/29/24 07:41 Pulse 80 04/29/24 10:02 Resp 18 04/29/24 07:41 BP 136/70 04/29/24 07:41 Pulse Ox 98 04/29/24 07:41 FiO2 70 04/18/24 14:00 Intake & Output 04/28/24 04/29/24 04/29/24 18:59 06:59 18:59 Intake Total 1066 Output Total 1265 1385 400 Balance -1265 -319 -400 Weight 51 kg Intake: Intake, IV Titration 1066 Amount Mvi, Adult No.4 with Vit 1066 K 10 ml Trace (Conc-1Ml/ Dose) 1 ml Sodium Acetate 44 meq Potassium Chloride 36 meq Calcium Gluconate 1 gm Magnesium Sulfate gm 1 gm Potassium Phosphate 9 mmol In Amino Acid 5%-D15w 1,000 ml @ 75 mls/hr IV .BY DURATION [facility] [place] Rx#: [id number] Output: Drainage 40 85 Lower Left Abdomen 40 Medial Abdomen 85 Urine 1225 1300 400 Other: Voiding Method Indwelling Catheter Indwelling Catheter # Bowel Movements 1 ABP, PAP, CO, CI - Last Documented Arterial Blood Pressure 90/59 - Exam GENERAL EXAM: Alert, frail, cachectic 88-year-old female, resting in bed, in no acute distress. HEAD: Normocephalic. EYES: Normal reaction of pupils, equal size. NOSE: Clear with pink turbinates. THROAT: No erythema or exudates. NECK: No masses, no JVD. CHEST: No chest wall deformity. LUNGS: Equal air entry with no crackles, wheeze, rhonchi or dullness. On 3 L nasal cannula, CVS: S1 and S2 normal with no audible murmur, regular rhythm. ABDOMEN: Abdominal dressing dry and intact. SHRUTHI drains in place. No guarding or rigidity. SPINE: No scoliosis or deformity SKIN: No rashes CENTRAL NERVOUS SYSTEM: No focal deficits, tone is normal in all 4 extremities. EXTREMITIES: There is no peripheral edema. No clubbing, no cyanosis. Peripheral pulses are intact. - Labs CBC & Chem 7: 04/29/24 05:36 04/29/24 05:36 Labs: Abnormal Lab Results - Last 24 Hours (Table) 04/28/24 04/28/24 04/29/24 Range/Units 11:41 18:05 00:01 WBC (4.50-10.00) X 10*3/uL RBC (4.10-5.20) X 10*6/uL Hgb (12.0-15.0) g/dL Hct (37.2-46.3) % MCHC (32.0-37.0) g/dL RDW (11.5-14.5) % Plt Count (140-440) X 10*3/uL Sodium (137-145) mmol/L Potassium (3.5-5.1) mmol/L Chloride (98-107) mmol/L BUN (7-17) mg/dL Creatinine (0.52-1.04) mg/dL Glucose (74-99) mg/dL POC Glucose (mg/dL) 163 H 177 H 158 H (70-110) mg/dL ALT (4-34) U/L Total Protein (6.3-8.2) g/dL Albumin (3.5-5.0) g/dL 04/29/24 04/29/24 04/29/24 Range/Units 05:36 05:36 05:59 WBC 10.67 H (4.50-10.00) X 10*3/uL RBC 2.88 L (4.10-5.20) X 10*6/uL Hgb 8.5 L (12.0-15.0) g/dL Hct 27.5 L (37.2-46.3) % MCHC 30.9 L (32.0-37.0) g/dL RDW 15.7 H (11.5-14.5) % Plt Count 582 H (140-440) X 10*3/uL Sodium 135 L (137-145) mmol/L Potassium 5.2 H (3.5-5.1) mmol/L Chloride 108 H (98-107) mmol/L BUN 35 H (7-17) mg/dL Creatinine 1.12 H (0.52-1.04) mg/dL Glucose 148 H (74-99) mg/dL POC Glucose (mg/dL) 165 H (70-110) mg/dL ALT 35 H (4-34) U/L Total Protein 5.0 L (6.3-8.2) g/dL Albumin 2.4 L (3.5-5.0) g/dL Microbiology - Last 24 Hours (Table) 04/25/24 15:21 Blood Culture - Preliminary Blood Assessment and Plan Assessment: Acute hypoxic respiratory failure, recovered and the patient was extubated on 04/14/2024. The patient was on room air oxygen and the patient got transferred to the medical floor to be readmitted back to the ICU the patient was weaned off the BiPAP and the patient is currently is on 3 L nasal cannula Acute leukocytosis, rule out septic event. Currently on IV Zosyn and Eraxis. Improved. The white cell count is at 10.6 Acute on chronic anemia consider the possibility of an ongoing GI bleed as the patient is also coughing out some coffee-ground material. Status post 2 units of packed red blood cells. Current hemoglobin 8.5 Status post re-exploration on April 12, 2024 with Billroth II gastrectomy, and Myles-en-Y reconstruction. The patient remains on TPN and lipids for nutritional support. Upper GI series performed April 28, 2024 reveals a stomach distention and outlet obstruction at the duodenum Status post exploratory laparotomy, April 09, 2024 repair of perforated duodenal ulcer, and application of a modified Lee patch. Upper GI series, showing leak, at the site of the modified Lee patch. Acute abdominal sepsis, secondary to above and the patient is currently on IV Zosyn and Eraxis. Abdominal series from 04/25/2024 revealed no acute abdominal p rocess Acute atrial fibrillation, with rapid ventricular response. The cardiac rhythm is back to sinus, on oral amiodarone History of splenic hematoma, without rupture. The patient is currently on no anticoagulants Acute dehydration with acute kidney injury. Recovered and the patient renal fun ction is normal Nonanion gap metabolic acidosis, recovered Hypovolemic hyponatremia, recovered Urinary retention requiring reinsertion of indwelling Walters catheter Poor functional performance based on the above-mentioned multiple comorbidities. 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 Number of minutes spent on the visit: 10.
[2024-04-29 11:55] LABS: Glucose,Whole Blood 200 mg/dL (70-110)
[2024-04-29] MEDS: MAGNESIUM SULFATE IV SCH (13:31)
[2024-04-29] MEDS: SODIUM ACETATE IV SCH (13:31)
[2024-04-29] MEDS: [UNRECOGNIZED DRUG - OTHER] IV SCH (13:31)
[2024-04-29] MEDS: CALCIUM GLUCONATE IV SCH (13:31)
--- NOTE | 2024-04-29 13:57 | P.PN ---
Progress Note - Text Progress Note Date: 04/29/24 CHIEF COMPLAINT: Perforated duodenal ulcer HISTORY OF PRESENT ILLNESS: Patient is status post exploratory laparotomy with modified Lee patch for perforated duodenal ulcer on 04/09/24. Upper GI had reported a leak and patient taken back to the OR. She is status post reexploration with Billroth II gastrectomy with Myles-en-Y reconstruction on 04/12/24. Patient is lying in bed comfortably. NAEO PHYSICAL EXAM: VITAL SIGNS: Reviewed. ABDOMEN: Soft. Nondistended. Incisional dressing clean dry and intact. 2 SHRUTHI drains serous output ASSESSMENT: 1. Perforated duodenal ulcer 2. Severe protein calorie malnutrition 3. Anemia PLAN: -UGI shows no obstruction -Keep patient n.p.o. for now -Continue TPN for nutrition support -Continue IV antibiotics -Continue IV Protonix BID -Continue supportive care -DVT prophylaxis subcu heparin -Family discussing hospice
--- NOTE | 2024-04-29 14:19 | P.PN ---
Subjective Progress Note Date: 04/29/24 This is an 88-year-old female, recent history of fall about 2 weeks ago, sustained bruising to her left ribs. Patient was brought in yesterday to the ER mostly with symptoms of weakness, failure to thrive, poor oral intake, and suspected dehydration. Patient was also complaining of cough and shortness of breath, no fever no chills, no nausea no vomiting. In addition the patient had no bowel movement for the last 4 days. Apparently the patient has been experiencing intermittent episodes of confusion for the last 1 year. Workup in the ER included a CT of the abdomen and pelvis, it showed pneumoperitoneum and free fluid. Patient was felt that she has ruptured viscus, she was seen by surgery and she underwent exploratory laparotomy for her pneumoperitoneum, and she was found to have perforated duodenal ulcer. Patient had modified Lee patch and postoperatively the patient was extubated nonetheless she was admitted to the ICU, and this consult was initiated. I saw the patient in the ICU this morning, she is on 4 L nasal cannula, does not seem to be in any distress. She is already on Zosyn, and I added Diflucan. She is on LR at 125 cc/h. 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 Patient seen examined. Currently sitting upright in the chair. States she feels much better. Had a bowel movement this morning. Denies any nausea or vomiting On today's evaluation of 04/17/2024, the patient is being seen for a follow-up. The patient is recovering from her abdominal surgery. The patient undergone exploratory laparotomy and repair of a perforated duodenal ulcer and she is postop day #8 subsequent the patient required a bit to gastrectomy and the patient is this morning, the patient has awake and alert and she is currently on med oxygen. She is in normal sinus rhythm. She is on TPN which is running at a rate of 40 cc an hour. She remains on IV Zosyn. She is using the incentive spirometer. The patient has 2 SHRUTHI drains. The medial drain has drained approximately 180 cc of serous material and the right lower abdominal drain has put out approximately 10 cc. She has had paroxysmal atrial fibrillation. She remains on amiodarone running at 0.5 mg/min. The white cell count is at 17 with a hemoglobin 9.1 and a platelet count of 431. BUN is 28 with a creatinine of 1. Electrolytes are normal limits. LFTs are normal. Blood sugar is at 183. The patient remains on empiric antibiotic coverage with IV Zosyn. She is being given oral diet today. Should be able also to take her oral medication. Surgical abdominal wound scar is dry clean and intact. He is alert and awake and communicating. 04/18/2024, the patient is on BiPAP. The patient decompensated overnight and became hypoxic. Chest x-ray was done and the patient was found to have large bilateral pleural effusion the patient was given Lasix. Noted the patient was on room air oxygen prior to her being transferred to the medical floor. At that point, the patient was placed on a BiPAP. She was started on the Lasix. This morning, she remains on BiPAP at a pressure of over 5 cm of water and FiO2 was brought up to 70%. No chest pain. She is awake and alert and she is producing adequate amount of urine output. The white cell count is currently up to On her blood work 38.9 with a hemoglobin of 9 and a platelet count of 443. BUN is 32 with a creatinine of 1.2 and sodium levels of 136. I repeated her blood work again and her white cell count is up to 40 with a hemoglobin of 8.8. The patient got transferred to the intensive care unit. Immediately, I performed an ultrasound of the chest that showed bilateral pleural effusion and thoracentesis of the right lung was done, pending follow-up chest x-ray and a total of 600 cc of pleural fluid aspirated from the right lung. Hemodynamically stable. No hypotension. Remains on TPN. Remains on IV Zosyn. Remains on Lasix 20 mg IV every 12 hours. Awake and alert and communicating. On today's evaluation of 04/19/2024, the patient seems to be more comfortable compared to yesterday. The patient is currently on 2 L of oxygen by nasal cannula. The patient was at the pulmonary edema and developed bilateral pleural effusions. The patient had a thoracentesis yesterday without any complication. A total of 650 cc of pleural fluid was aspirated from the right lung. A repeat chest x-ray from today showing improvement in the volume status. There is still increased interstitial markings bilaterally and small bilateral pleural effusions in the lung bases bilaterally. The patient remains on IV Lasix. The patient is producing adequate amount of urine output. Nevertheless, the fluid balance over the past 24 hours has been +500 cc. The patient remains on TPN for nutritional support. The patient is receiving TPN at a rate of 60 cc an hour. The patient is also on a combination of Zosyn and Eraxis, and vancomycin.. Oxygenation is improved and the patient is currently off the BiPAP and the patient currently is on 3 L of oxygen by nasal cannula. BUN is 40 with a creat inine of 1.2. Sodium level is 137, white cell count is improved is currently down to 21 with a hemoglobin of 7.5 and a platelet count of 393. No other significant events otherwise and the patient's condition is slightly more stable compared to yesterday. She is awake and alert and communicating. 04/20. Patient seen and examined. Blood work done this morning showed WBC 13.9, hemoglobin 6.6, platelet count 397, sodium 135, potassium 3.1, BUN 40, creatinine 1.21, glucose 185. Patient being transfused unit of packed red blood cell. Patient had dark-colored stool this morning. 04/21. Patient seen and examined. Blood work done this morning showed sodium 135, potassium 4, BUN 44, creatinine 1.18, glucose 162,. Patient was coughing up dark-colored phlegm. Surgery ordered stat CBC. Patient was having blood in the stools 04/22. Patient seen and examined. Patient had dark stool this morning, coughing up some dark material as well. General surgery aware. Repeat CBC ordered 04/23. Patient seen examined. Blood work done this morning showed WBC 12.8, hemoglobin 9, sodium 135, potassium 3.5, BUN 53, creatinine 1.23. States she feels slightly better. 04/29. Dr. Rodgers took over care from Dr. Campoverde. Patient is currently n.p.o., DPOA at the bedside. Apparently patient not doing well, complaining abdominal pain, has poor appetite. DPOA inquiring about hospice. Hospice consulted REVIEW OF SYSTEMS: CONSTITUTIONAL: No fever, no malaise,. CARDIOVASCULAR: No chest pain, no palpitations, no syncope. PULMONARY: No shortness of breath, no cough, GASTROINTESTINAL: As mentioned above NEUROLOGICAL: No headaches, no weakness, PHYSICAL EXAMINATION: GENERAL: The patient is alert , chronically ill looking, looks in distress HEENT: Pupils are round and equally reacting to light. EOMI. No scleral icterus. No conjunctival pallor. Normocephalic, atraumatic. No pharyngeal erythema. No thyromegaly. CARDIOVASCULAR: S1 and S2 present. No murmurs, rubs, or gallops. PULMONARY: Diminished breath sound the bases bilaterally, no wheeze ABDOMEN: Soft, nontender, absent bowel sounds, SHRUTHI drain seen MUSCULOSKELETAL: No joint swelling or deformity. EXTREMITIES: No cyanosis, clubbing, or pedal edema. NEUROLOGICAL: Gross neurological examination did not reveal any focal deficits. SKIN: No rashes. Assessment and plan S/P exploratory laparotomy, repair of perforated duodenal ulcer, and application of a modified Lee patch. status post Billroth II gastrectomy, and Myles-en-Y reconstruction. Upper GI series, showing leak, at the site of the modified Lee patch. acute abdominal sepsis. Acute atrial fibrillation, with rapid ventricular response. Acute dehydration with acute kidney injury. Nonanion gap metabolic acidosis. Leukocytosis, secondary to sepsis. Hypovolemic hyponatremia, Monitor vital signs Monitor CBC Monitor CMP Currently n.p.o. Continue IV Zosyn and Eraxis Continue amiodarone,Not a good anticoagulation candidate currently with concern of continued leak and decrease in Hgb General surgery following, patient is not a good candidate for any further surgical procedures per surgery Hospice consulted Labs and medication were reviewed.. Continue same treatment. Continue with symptomatic treatment. Resume home medication. Monitor labs and vitals. DVT a nd GI prophylaxis. Further recommendations as per clinical course of the patient Dictation was produced using [employer] dictation software. please excuse any grammatical, word or spelling errors. Objective - Vital Signs Vital signs: Vital Signs Temp 98.1 F 04/29/24 07:41 Pulse 72 04/29/24 13:17 Resp 18 04/29/24 07:41 BP 136/70 04/29/24 07:41 Pulse Ox 98 04/29/24 07:41 FiO2 70 04/18/24 14:00 Intake & Output 04/28/24 04/29/24 04/29/24 18:59 06:59 18:59 Intake Total 1066 Output Total 1265 1385 400 Balance -4082 -606 -436 Weight 51 kg Intake: Intake, IV Titration 1066 Amount Mvi, Adult No.4 with Vit 1066 K 10 ml Trace (Conc-1Ml/ Dose) 1 ml Sodium Acetate 44 meq Potassium Chloride 36 meq Calcium Gluconate 1 gm Magnesium Sulfate gm 1 gm Potassium Phosphate 9 mmol In Amino Acid 5%-D15w 1,000 ml @ 75 mls/hr IV .BY DURATION [facility] Rx#: [id number] Output: Drainage 40 85 Lower Left Abdomen 40 Medial Abdomen 85 Urine 1225 1300 400 Other: Voiding Method Indwelling Catheter Indwelling Catheter # Bowel Movements 1 ABP, PAP, CO, CI - Last Documented Arterial Blood Pressure 90/59 - Labs CBC & Chem 7: 04/29/24 05:36 04/29/24 05:36 Labs: Abnormal Lab Results - Last 24 Hours (Table) 04/28/24 04/29/24 04/29/24 Range/Units 18:05 00:01 05:36 WBC 10.67 H (4.50-10.00) X 10*3/uL RBC 2.88 L (4.10-5.20) X 10*6/uL Hgb 8.5 L (12.0-15.0) g/dL Hct 27.5 L (37.2-46.3) % MCHC 30.9 L (32.0-37.0) g/dL RDW 15.7 H (11.5-14.5) % Plt Count 582 H (140-440) X 10*3/uL Sodium (137-145) mmol/L Potassium (3.5-5.1) mmol/L Chloride (98-107) mmol/L BUN (7-17) mg/dL Creatinine (0.52-1.04) mg/dL Glucose (74-99) mg/dL POC Glucose (mg/dL) 177 H 158 H (70-110) mg/dL ALT (4-34) U/L Total Protein (6.3-8.2) g/dL Albumin (3.5-5.0) g/dL 04/29/24 04/29/24 04/29/24 Range/Units 05:36 05:59 11:54 WBC (4.50-10.00) X 10*3/uL RBC (4.10-5.20) X 10*6/uL Hgb (12.0-15.0) g/dL Hct (37.2-46.3) % MCHC (32.0-37.0) g/dL RDW (11.5-14.5) % Plt Count (140-440) X 10*3/uL Sodium 135 L (137-145) mmol/L Potassium 5.2 H (3.5-5.1) mmol/L Chloride 108 H (98-107) mmol/L BUN 35 H (7-17) mg/dL Creatinine 1.12 H (0.52-1.04) mg/dL Glucose 148 H (74-99) mg/dL POC Glucose (mg/dL) 165 H 200 H (70-110) mg/dL ALT 35 H (4-34) U/L Total Protein 5.0 L (6.3-8.2) g/dL Albumin 2.4 L (3.5-5.0) g/dL Microbiology - Last 24 Hours (Table) 04/25/24 15:21 Blood Culture - Preliminary Blood
--- NOTE | 2024-04-29 15:17 | P.PN ---
Subjective Progress Note Date: 04/29/24 Principal diagnosis: Reason for follow-up is perforated duodenal ulcer/peritonitis Patient is a 88-year-old female presenting to the hospital abdominal pain diagnosed with the pneumoperitoneum secondary to the perforated jejunal ulcer status post laparotomy and modified Lee patch.Patient is status post reexploration with Billroth II gastrectomy with Myles-en-Y reconstruction completed on 04/12/2024 On today's evaluation that is 04/29/2024, patient has been afebrile, patient is breathing comfortably and is currently on 3 L current oxygen, patient denies having any significant cough no chest pain shortness of breath, patient did have some nausea no vomiting no abdominal pain or diarrhea reported. Patient white count is 10.67, creatinine is 1.12 Objective - Vital Signs Vital signs: Vital Signs Temp 98.1 F 04/29/24 07:41 Pulse 80 04/29/24 10:02 Resp 18 04/29/24 07:41 BP 136/70 04/29/24 07:41 Pulse Ox 98 04/29/24 07:41 FiO2 70 04/18/24 14:00 Intake & Output 04/28/24 04/29/24 04/29/24 18:59 06:59 18:59 Intake Total 1066 Output Total 1265 1385 400 Balance -1265 -319 -400 Weight 51 kg Intake: Intake, IV Titration 1066 Amount Mvi, Adult No.4 with Vit 1066 K 10 ml Trace (Conc-1Ml/ Dose) 1 ml Sodium Acetate 44 meq Potassium Chloride 36 meq Calcium Gluconate 1 gm Magnesium Sulfate gm 1 gm Potassium Phosphate 9 mmol In Amino Acid 5%-D15w 1,000 ml @ 75 mls/hr IV .BY DURATION [facility] Rx#: [id number] Output: Drainage 40 85 Lower Left Abdomen 40 Medial Abdomen 85 Urine 1225 1300 400 Other: Voiding Method Indwelling Catheter Indwelling Catheter # Bowel Movements 1 ABP, PAP, CO, CI - Last Documented Arterial Blood Pressure 90/59 - Exam GENERAL DESCRIPTION: An elderly female lying in bed in no distress RESPIRATORY SYSTEM: Unlabored breathing , decreased breath sounds at bases HEART: S1 S2 regular rate and rhythm , ABDOMEN: Soft , mild tenderness EXTREMITIES: No edema feet - Labs CBC & Chem 7: 04/29/24 05:36 04/29/24 05:36 Labs: Abnormal Lab Results - Last 24 Hours (Table) 04/28/24 04/29/24 04/29/24 Range/Units 18:05 00:01 05:36 WBC 10.67 H (4.50-10.00) X 10*3/uL RBC 2.88 L (4.10-5.20) X 10*6/uL Hgb 8.5 L (12.0-15.0) g/dL Hct 27.5 L (37.2-46.3) % MCHC 30.9 L (32.0-37.0) g/dL RDW 15.7 H (11.5-14.5) % Plt Count 582 H (140-440) X 10*3/uL Sodium (137-145) mmol/L Potassium (3.5-5.1) mmol/L Chloride (98-107) mmol/L BUN (7-17) mg/dL Creatinine (0.52-1.04) mg/dL Glucose (74-99) mg/dL POC Glucose (mg/dL) 177 H 158 H (70-110) mg/dL ALT (4-34) U/L Total Protein (6.3-8.2) g/dL Albumin (3.5-5.0) g/dL 04/29/24 04/29/24 Range/Units 05:36 05:59 WBC (4.50-10.00) X 10*3/uL RBC (4.10-5.20) X 10*6/uL Hgb (12.0-15.0) g/dL Hct (37.2-46.3) % MCHC (32.0-37.0) g/dL RDW (11.5-14.5) % Plt Count (140-440) X 10*3/uL Sodium 135 L (137-145) mmol/L Potassium 5.2 H (3.5-5.1) mmol/L Chloride 108 H (98-107) mmol/L BUN 35 H (7-17) mg/dL Creatinine 1.12 H (0.52-1.04) mg/dL Glucose 148 H (74-99) mg/dL POC Glucose (mg/dL) 165 H (70-110) mg/dL ALT 35 H (4-34) U/L Total Protein 5.0 L (6.3-8.2) g/dL Albumin 2.4 L (3.5-5.0) g/dL Microbiology - Last 24 Hours (Table) 04/25/24 15:21 Blood Culture - Preliminary Blood Assessment and Plan (1) Peritonitis Current Visit: Yes Status: Acute Code(s): K65.9 - PERITONITIS, UNSPECIFIED SNOMED Code(s): 79013083 (2) Leukocytosis Current Visit: Yes Status: Acute Code(s): D72.829 - ELEVATED WHITE BLOOD CELL COUNT, UNSPECIFIED SNOMED Code(s): 050129015 (3) Perforated duodenal ulcer Current Visit: Yes Status: Acute Code(s): K26.5 - CHRONIC OR UNSPECIFIED DUODENAL ULCER WITH PERFORATION SNOMED Code(s): 30157289 Plan: 1patient presented to hospital with abdominal pain constipation has been diagnosed with the pneumoperitoneum secondary to perforated duodenal ulcer status post laparotomy and repair of the perforated jejunal ulcer we will need to cover for gram-negative and yeast. 2patient did have upper GI that was suspicious for leak patient is status post reexploration with Billroth II gastrectomy with Myles-en-Y reconstruction along with abdominal cultures which are so far negative 3-patient is afebrile and the patient white count has normalized, to continue Zosyn and Eraxis while inpatient and monitor clinical course closely Dictation was produced using [employer] dictation software. please excuse any grammatical, word or spelling errors. Time with Patient: Less than 30
[2024-04-29 16:41] LABS: Glucose,Whole Blood 154 mg/dL (70-110)
[2024-04-30 00:04] LABS: Glucose,Whole Blood 171 mg/dL (70-110)
[2024-04-30 04:14] LABS: African American GFR (CKD) 60 (>60 ml/min/1.73 sqM); Anion Gap 5 mmol/L; Blood Urea Nitrogen 41 mg/dL (7-17); Calcium 8.5 mg/dL (8.4-10.2); Carbon Dioxide 22 mmol/L (22-30); Chloride 106 mmol/L (98-107); Glucose 138 mg/dL (74-99); Magnesium 2.1 mg/dL (1.6-2.3); Non-African American GFR(CKD) 52 (>60 ml/min/1.73 sqM); Phosphorus 3.1 mg/dL (2.5-4.5); Potassium 4.4 mmol/L (3.5-5.1); Sodium 133 mmol/L (137-145)
[2024-04-30 06:00] LABS: Glucose,Whole Blood 157 mg/dL (70-110)
--- NOTE | 2024-04-30 11:05 | P.PN ---
Subjective Progress Note Date: 04/30/24 This is an 88-year-old female, recent history of fall about 2 weeks ago, sustained bruising to her left ribs. Patient was brought in yesterday to the ER mostly with symptoms of weakness, failure to thrive, poor oral intake, and suspected dehydration. Patient was also complaining of cough and shortness of breath, no fever no chills, no nausea no vomiting. In addition the patient had no bowel movement for the last 4 days. Apparently the patient has been experiencing intermittent episodes of confusion for the last 1 year. Workup in the ER included a CT of the abdomen and pelvis, it showed pneumoperitoneum and free fluid. Patient was felt that she has ruptured viscus, she was seen by surgery and she underwent exploratory laparotomy for her pneumoperitoneum, and she was found to have perforated duodenal ulcer. Patient had modified Lee patch and postoperatively the patient was extubated nonetheless she was admitted to the ICU, and this consult was initiated. I saw the patient in the ICU this morning, she is on 4 L nasal cannula, does not seem to be in any distress. She is already on Zosyn, and I added Diflucan. She is on LR at 125 cc/h. Her WBC count is 28.6, electrolytes are normal hemoglobin is 10.7 BUN is 97 creatinine down to 2.45 from 3.27 yesterday. Progress note dated April 10, 2024. 88-year-old female seen yesterday in consultation. She was admitted on April 08, with confusion and weakness. The patient had a repair of a perforated duodenal ulcer on April 09. Today is postop day #1. She is currently seen today in room 261. She is currently on 6 L of oxygen by nasal cannula. She has an NG tube in place. She is getting lactated Ringer's at 125 cc an hour. For atrial fibrillation with a rapid ventricular response, she was started on Cardizem drip at 5 mg an hour, and amiodarone 0.5 mg/min. No new labs today other than a glucose of 154. The labs from yesterday are reviewed. White count was 28.6. Hemoglobin 10.7, platelet count was normal. BUN and creatinine were 97 and 2.45. Chest x-ray suggested bilateral pleural effusions. Progress note dated April 11, 2024. 88-year-old female seen today in room 261. The patient was admitted on April 08, with confusion and weakness. The patient was discovered to have a perforated duodenal ulcer, and had a surgical repair performed on April 09. Today is postop day #2. The patient is currently without distress. She is on room air. NG tube remains in place. She is getting lactated Ringer's at 75 cc an hour. Because of atrial fibrillation and RVR, she continues on amiodarone 0.5 mg/min, and Cardizem at 5 mg an hour. Lab data includes a white count 34.6, hemoglobin 9.1, hematocrit 36.6, and a platelet count 442,000. Sodium 143, potassium 4.1, chlorides 113, CO2 23, BUN 71, creatinine 1.64. Glucose is 134. Albumin is 2.3. Blood cultures are currently negative. No chest x-ray today has been ordered. Progress note dated April 12, 2024. This is an 88-year-old female who is seen in room 261. The patient was admitted back on April 08, with confusion and weakness. She was discovered to have a perforated duodenal ulcer, and had surgical repair performed on April 09. Today is postoperative day #3. The patient is going to have a upper GI study today. She is getting lactated Ringer's at 75 cc an hour, 3 L of oxygen by nasal cannula, Cardizem at 5 mg an hour, and amiodarone at 0.5 mg/min. White count was 37.4, hemoglobin 11.6, hematocrit 38.5, and platelet count was normal. Sodium 145, potassium 3.2, chloride 115, CO2 24, BUN 52, creatinine 1.26. Glucose 123. Calcium 8.2. BUN 2.2. Blood cultures are currently negative. The patient's chest x-ray is stable, with some basilar atelectasis on the right. Upper GI study showed a leak, at the site of patch placement, in the duodenal bulb. Progress note dated April 13, 2024. 88-year-old female seen today in room 261. The patient is postop day #1, status post Billroth II gastrectomy, and Myles-en-Y reconstruction. The patient is currently on the ventilator. Ventilator settings include volume assist-control, rate 16, tidal volume 350, FiO2 40%, PEEP of 5. Blood gases show pO2 128, pCO2 34, pH is 7.43. The blood gases were done on 50% FiO2. The patient is on lactated Ringer's at 75 cc an hour, amiodarone 0.5 mg/min, Cardizem at 5 mg/h, and propofol, is restarted at a low rate. Current labs include a white count 34.8, hemoglobin 9.5, hematocrit 32.2, and a platelet count of 325,000. Sodium 141, potassium 4, chloride 114, CO2 21, BUN 48, creatinine 1.51. Glucose is 133. Calcium is 7. Blood cultures are negative. Chest x-ray shows in addition to endotracheal tube, and central venous line, blunting of the costophrenic angles. Progress note dated April 14, 2024. 88-year-old female seen today in room 261. She is postop day #2, status post Billroth II gastrectomy and Myles-en-Y reconstruction. The patient is on the ventilator. She was maintained on the ventilator overnight. Currently, the patient is on volume assist-control, rate 16, tidal volume 350, FiO2 30%, PEEP of 5. Blood gases show pO2 of 148, pCO2 33, pH is 7.42. Blood gases were done on 40%. The patient continues on amiodarone at 0.5 mg/min, lactated Ringer's at 75 cc an hour, propofol at 35 mcg/kg/min, and TPN at 30 cc an hour, to be increased to 55 cc an hour. Current white count is 25.2, hemoglobin 9.5, hematocrit 35.5, platelet count 362,000. Sodium 142, potassium 3.3, chlorides 112, CO2 25, BUN 50, creatinine 1.83. Albumin level was 1.9. Chest x-ray is largely unchanged. Progress note dated April 15, 2024. The patient is seen again in room 261. The patient was successfully extubated yesterday, April 14. She is currently on room air. She is receiving a saline IV at KVO, and TPN at 40 cc an hour. Current labs include a white count 18.1, hemoglobin 8.9, hematocrit 27.4, and a platelet count of 334,000. Sodium 140, potassium 3.9, chlorides 114, CO2 23, BUN 46, and creatinine 1.36. Glucose is 170. Calcium is 7.2. Phosphorus is 1.9. Magnesium is 2.0. Progress note dated April 16, 2024. The patient is seen today in room 261. She is currently on room air. She continues on amiodarone at 0.5 mg/min. She is getting TPN at 40 cc an hour, and saline at KVO. She does continue on Zosyn. All her cultures are thus far negative. She has no specific complaints today. According to the nurse, she is a bit anxious. Current labs include a sodium 139, potassium 3.9, chlorides 114, CO2 23, BUN 35, and creatinine 1.15. Glucose is 178. Calcium 7.5, phosphorus 2.3, and magnesium is normal. Culture data is negative. Venous Doppler yesterday, shows a superficial venous thrombosis involving the cephalic vein, of the left upper extremity. On today's evaluation of 04/17/2024, the patient is being seen for a follow-up. The patient is recovering from her abdominal surgery. The patient undergone exploratory laparotomy and repair of a perforated duodenal ulcer and she is postop day #8 subsequent the patient required a bit to gastrectomy and the patient is this morning, the patient has awake and alert and she is currently on med oxygen. She is in normal sinus rhythm. She is on TPN which is running at a rate of 40 cc an hour. She remains on IV Zosyn. She is using the incentive spirometer. The patient has 2 SHRUTHI drains. The medial drain has drained approximately 180 cc of serous material and the right lower abdominal drain has put out approximately 10 cc. She has had paroxysmal atrial fibrillation. She remains on amiodarone running at 0.5 mg/min. The white cell count is at 17 with a hemoglobin 9.1 and a platelet count of 431. BUN is 28 with a creatinine of 1. Electrolytes are normal limits. LFTs are normal. Blood sugar is at 183. The patient remains on empiric antibiotic coverage with IV Zosyn. She is being given oral diet today. Should be able also to take her oral medication. Surgical abdominal wound scar is dry clean and intact. He is alert and awake and communicating. 04/18/2024, the patient is on BiPAP. The patient decompensated overnight and became hypoxic. Chest x-ray was done and the patient was found to have large bilateral pleural effusion the patient was given Lasix. Noted the patient was on room air oxygen prior to her being transferred to the medical floor. At that point, the patient was placed on a BiPAP. She was started on the Lasix. This morning, she remains on BiPAP at a pressure of over 5 cm of water and FiO2 was brought up to 70%. No chest pain. She is awake and alert and she is producing adequate amount of urine output. The white cell count is currently up to On her blood work 38.9 with a hemoglobin of 9 and a platelet count of 443. BUN is 32 with a creatinine of 1.2 and sodium levels of 136. I repeated her blood work again and her white cell count is up to 40 with a hemoglobin of 8.8. The patient got transferred to the intensive care unit. Immediately, I performed an ultrasound of the chest that showed bilateral pleural effusion and thoracentesis of the right lung was done, pending follow-up chest x-ray and a total of 600 cc of pleural fluid aspirated from the right lung. Hemodynamically stable. No hypotension. Remains on TPN. Remains on IV Zosyn. Remains on Lasix 20 mg IV every 12 hours. Awake and alert and communicating. On today's evaluation of 04/19/2024, the patient seems to be more comfortable comp ared to yesterday. The patient is currently on 2 L of oxygen by nasal cannula. The patient was at the pulmonary edema and developed bilateral pleural effusions. The patient had a thoracentesis yesterday without any complication. A total of 650 cc of pleural fluid was aspirated from the right lung. A repeat chest x-ray from today showing improvement in the volume status. There is still increased interstitial markings bilaterally and small bilateral pleural effusions in the lung bases bilaterally. The patient remains on IV Lasix. The patient is producing adequate amount of urine output. Nevertheless, the fluid balance over the past 24 hours has been +500 cc. The patient remains on TPN for nutritional support. The patient is receiving TPN at a rate of 60 cc an hour. The patient is also on a combination of Zosyn and Eraxis, and vancomycin.. Oxygenation is improved and the patient is currently off the BiPAP and the patient currently is on 3 L of oxygen by nasal cannula. BUN is 40 with a creatinine of 1.2. Sodium level is 137, white cell count is improved is currently down to 21 with a hemoglobin of 7.5 and a platelet count of 393. No other significant events otherwise and the patient's condition is slightly more stable compared to yesterday. She is awake and alert and communicating. On 04/20/2024, the patient is being seen for a follow-up. The patient is doing well on 3 L of oxygen by nasal cannula. No significant respiratory distress. A follow-up chest x-ray was done today and showed improvement in volume status with small bilateral pleural effusion and some increased interstitial markings bilaterally. Nevertheless, the patient has been diuresed adequately and the patient is currently in negative fluid balance and the patient will be switched to oral Lasix. IV Lasix will be discontinued and the patient has been switched to 40 mg of Lasix on a daily basis. Remains on TPN for nutritional support. She did have a bloody bowel movement, unsure if it is melanotic. This will be monitored as the patient hemoglobin has remeasured at 8.7 on today's evaluation. The white cell count is 15.8. BUN is 48 with a creatinine 1.2 and sodium levels at 135 and a potassium level of 3.1. LFTs are all stable. Antibiotic coverage remains unchanged and the patient remains on a combination of Eraxis and Zosyn. Surgical wound site is dry clean and intact. Renal function remained stable On 04/21/2024, seen the patient for a follow-up. She is currently on room air oxygen. She is having some coffee-ground material in her mouth and I suspect ongoing GI bleed. Note that the patient's hemoglobin had dropped down to 6.6 and the patient does get transfused with packed RBC and a subsequent hemoglobin is up to 8.7 and currently is at 8.1. No acute evidence of any active upper GI bleeding. The patient is awake and alert and communicating. She remains on TPN for nutritional support. Surgical scars are dry clean and intact. Antibiotic coverage with IV Zosyn and Eraxis per IDs recommendations. As mentioned, the patient is postthoracentesis. The patient is currently on diuretics and the patient receiving Lasix 40 mg p.o. daily.. The patient is on room air oxygen. No other significant events overnight. 04/22/2024, the patient is suspected to have some ongoing low-grade GI bleed. She is still having some black stools and coughing out some coffee-ground material. Hemoglobin is at 7.1. Noted that hemoglobin has dropped slightly compared to yesterday is down from 8.1. Respiratory status is stable. She is on 2 L of O2 nasal cannula. Pulse ox 96%. Platelet count is at 397. Remains appropriate for oxygen support. Creatinine is stable at 1.2. BUN is 52 with a sodium of 135. No other significant events overnight. Remains alert and awake and communicating. No confusion. No altered mentation. 04/23/2024, the patient had another bloody neurologic bowel movement that she is coughing out coffee-ground material. I suspect ongoing GI bleed. Noted the repeat hemoglobin from yesterday was at 6.5. The patient was given a unit of packed RBC and the hemoglobin is currently at 9. Platelet counts are stable. Abdominal exam is stable. Creatinine is at 1.2 with a BUN of 53. Sodium is at 135. Repeat hemoglobin will be obtained. She remains on TPN for nutritional support. Overall respiratory status is stable. The patient is currently on 2 L of oxygen by nasal cannula with a pulse ox of 94%. General surgery is on the case. 2023 in follow-up on the regular medical floor. She is currently sitting up in a chair. Awake and alert in no acute distress. She is maintaining O2 saturations in the 90s on 2 L/min per nasal cannula. She has been afebrile. Hemodynamically stable. White count 11.6. Hemoglobin 9.7. Platelets 495. Sodium 136. Potassium 4.4. Bicarb 25. BUN 44. Creatinine 1.03. Glucose 163. Vancomycin trough 13.9. She is status post 2 units of packed red blood cells this admission. She remains on TPN for nutritional support at 60 MLS per hour. She remains on Zosyn and Eraxis. The patient is seen today April 25, 2024 in follow-up on the regular medical floor. She is currently resting fairly comfortably in bed. Awake and alert in no acute distress. She is having issues with urinary retention and a Walters catheter needs to be replaced. She is maintaining good O2 saturations in the 90s on 2 L/min per nasal cannula. She is being nourished with TPN currently at 60 MLS per hour. She remains on Zosyn and Eraxis. Continued on bronchodilators. Acute abdominal x-ray revealed no radiographic evidence for acute abdominal process. Bibasilar small pleural effusions. White count 11.5. Hemoglobin 9.5. Platelets 490. Sodium 133. Potassium 4.1. Bicarb 24. BUN 40. Creatinine 1.10. Glucose 165. Urinalysis clean. The patient is seen today April 26, 2024 in follow-up on the regular medical floor. She is currently resting in bed. Awake and alert in no acute distress. Maintaining O2 saturations in the 90s on 2 L/min per nasal cannula. White count 15.2. Hemoglobin 7.7. Platelets 426. Sodium 134. Potassium 3.8. Bicarb 27. BUN 42. Creatinine 1.27. Glucose 164. She remains on Zosyn and Eraxis. Continued on bronchodilators. Currently in a -2 L balance. Being nourished with TPN and lipids. The patient is seen today April 27, 2024 in follow-up on the regular medical floor. She is awake and alert in no acute distress. Resting flat in bed. Denies any worsening shortness of breath, cough or congestion. She is maintaining O2 saturations in the 90s on 2 L/min per nasal cannula. White count 11.0. Hemoglobin 8.2. Platelets 496. Sodium 136. Potassium 4.3. Bicarb 25. BUN 40. Creatinine 1.24. Glucose 171. She did have a PICC line placed yesterday. Triple-lumen catheter has been removed. She remains on TPN and lipids for nutrition. Tolerating a full liquid diet. Continued on Zosyn and Eraxis. Remains on bronchodilators. The patient is seen today April 28, 2024 in follow-up on the regular medical floor. She is resting comfortably in bed. Awake and alert in no acute distress. She is maintaining O2 saturations in the 90s on 3 L/min per nasal c annula. She remains afebrile. Hemodynamically stable. She is going for an upper GI series this morning. Currently nothing by mouth. Blood and pleural fluid cultures revealed no growth. White count 10.6. Hemoglobin 8.7. Platelets 576. Sodium 134. Potassium 5.0. Bicarb 24. BUN 38. Creatinine 1.13. Glucose 153. She remains on TPN and lipids. Continued on antibiotics in the form of Zosyn. Remains on Eraxis. Continued on bronchodilators. The patient is seen today April 29, 2024 in follow-up on the regular medical floor. She is resting in bed. Awake and alert in no acute distress. She is maintaining good O2 saturations in the 90s on 3 L/min per nasal cannula. Afebrile. Hemodynamically stable. Upper GI series did reveal distention of the stomach with outlet obstruction at the duodenum. The anastomosis or free spill into the small bowel through the Myles-en-Y is not identified. No extravasation evident. KUB revealed no evidence of small bowel obstruction. White count 10.6. Hemoglobin 8.5. Platelets 582. Sodium 135. Potassium 5.2. Bicarb 23. BUN 35. Creatinine 1.12. Glucose 148. She remains on Eraxis and Zosyn. Remains on TPN and lipids. According to nursing staff there are no plans for surgical intervention at this point. Hospice has been recommended. The patient is seen today April 30, 2024 in follow-up on the regular medical floor. She is awake and alert in no acute distress. Denies any significant abdominal pain currently. She is resting in bed. She is maintaining good O2 saturations in the 90s on 3 L/min per nasal cannula. She is continued on Zosyn and Eraxis. Remains on bronchodilators. Remains on TPN and lipids. Creatinine 0.97. Glucose 138. Objective - Vital Signs Vital signs: Vital Signs Temp 98.3 F 04/30/24 07:21 Pulse 80 04/30/24 08:58 Resp 17 04/30/24 07:21 BP 125/65 04/30/24 07:21 Pulse Ox 98 04/30/24 07:21 FiO2 70 04/18/24 14:00 Intake & Output 04/29/24 04/30/24 04/30/24 18:59 06:59 18:59 Intake Total 981.25 Output Total 1130 555 400 Balance -1130 426.25 -400 Intake: Intake, IV Titration 981.25 Amount Mvi, Adult No.4 with Vit 981.25 K 10 ml Trace (Conc-1Ml/ Dose) 1 ml Sodium Acetate 44 meq Calcium Gluconate 1 gm Magnesium Sulfate gm 1 gm Sodium Phosphate 9 mmol In Amino Acid 5%- D15w 1,000 ml @ 75 mls/hr IV .[facility] Rx#: [id number] Output: Drainage 80 55 Lower Left Abdomen 70 50 Medial Abdomen 10 5 Urine 1050 500 400 Other: Voiding Method Indwelling Catheter Indwelling Catheter Indwelling Catheter ABP, PAP, CO, CI - Last Documented Arterial Blood Pressure 90/59 - Exam GENERAL EXAM: Alert, 88-year-old female, resting in bed, on 3 L nasal cannula, in no acute distress. HEAD: Normocephalic. EYES: Normal reaction of pupils, equal size. NOSE: Clear with pink turbinates. THROAT: No erythema or exudates. NECK: No masses, no JVD. CHEST: No chest wall deformity. LUNGS: Equal air entry with no crackles, wheeze, rhonchi or dullness. CVS: S1 and S2 normal with no audible murmur, regular rhythm. ABDOMEN: Abdominal dressing dry and intact. SHRUTHI drains in place. No guarding or rigidity. SPINE: No scoliosis or deformity SKIN: No rashes CENTRAL NERVOUS SYSTEM: No focal deficits, tone is normal in all 4 extremities. EXTREMITIES: There is no peripheral edema. No clubbing, no cyanosis. Peripheral pulses are intact. - Labs CBC & Chem 7: 04/29/24 05:36 04/30/24 03:28 Labs: Abnormal Lab Results - Last 24 Hours (Table) 04/29/24 04/29/24 04/30/24 Range/Units 11:54 16:40 00:03 Sodium (137-145) mmol/L BUN (7-17) mg/dL Glucose (74-99) mg/dL POC Glucose (mg/dL) 200 H 154 H 171 H (70-110) mg/dL 04/30/24 04/30/24 Range/Units 03:28 05:59 Sodium 133 L (137-145) mmol/L BUN 41 H (7-17) mg/dL Glucose 138 H (74-99) mg/dL POC Glucose (mg/dL) 157 H (70-110) mg/dL Assessment and Plan Assessment: Acute hypoxic respiratory failure, recovered and the patient was extubated on 04/14/2024. The patient was on room air oxygen and the patient got transferred to the medical floor to be readmitted back to the ICU the patient was weaned off the BiPAP and the patient is currently is on 3 L nasal cannula Acute leukocytosis, rule out septic event. Currently on IV Zosyn and Eraxis. Improved. The white cell count is at 10.6 Acute on chronic anemia consider the possibility of an ongoing GI bleed as the patient is also coughing out some coffee-ground material. Status post 2 units of packed red blood cells. Current hemoglobin 8.5 Status post re-exploration on April 12, 2024 with Billroth II gastrectomy, and Myles-en-Y reconstruction. The patient remains on TPN and lipids for nutritional support. Upper GI series performed April 28, 2024 reveals a stomach distention and outlet obstruction at the duodenum Status post exploratory laparotomy, April 09, 2024 repair of perforated duodenal ulcer, and application of a modified Lee patch. Upper GI series, showing leak, at the site of the modified Lee patch. Acute abdominal sepsis, secondary to above and the patient is currently on IV Zosyn and Eraxis. Abdominal series from 04/25/2024 revealed no acute abdominal process Acute atrial fibrillation, with rapid ventricular response. The cardiac rhythm is back to sinus, on oral amiodarone History of splenic hematoma, without rupture. The patient is currently on no anticoagulants Acute dehydration with acute kidney injury. Recovered and the patient renal function is normal Nonanion gap metabolic acidosis, recovered Hypovolemic hyponatremia, recovered Urinary retention requiring reinsertion of indwelling Walters catheter Poor functional performance based on the above-mentioned multiple comorbidities. Plan: The patient was seen and evaluated Labs and medications reviewed Continue the current treatment plan for now Treat down the FiO2 as tolerated Assure adequate pain control No plans for surgical intervention Hospice has been recommended This patient was seen independently by the pulmonary nurse practitioner addressing pulmonary issues I have personally seen and examined the patient, performed the documentation and the assessment and plan as written. Number of minutes spent on the visit: 24.
--- NOTE | 2024-04-30 12:00 | P.PN ---
Subjective Patient is seen in follow-up for acute kidney injury. Receiving TPN. Renal function better. No active complaints. Guardian present at bedside. Vital signs are stable. General: No acute distress. HEENT: Head exam is unremarkable. On nasal cannula. LUNGS: No audible rhonchi or wheezes. HEART: Rate and Rhythm are regular. ABDOMEN: Nontender. SHRUTHI drain noted. EXTREMITITES: Trace edema. Objective - Vital Signs Vital signs: Vital Signs Temp 98.3 F 04/30/24 07:21 Pulse 80 04/30/24 08:58 Resp 17 04/30/24 07:21 BP 125/65 04/30/24 07:21 Pulse Ox 98 04/30/24 07:21 FiO2 70 04/18/24 14:00 Intake & Output 04/29/24 04/30/24 04/30/24 18:59 06:59 18:59 Intake Total 981.25 Output Total 1130 555 400 Balance -1130 426.25 -400 Intake: Intake, IV Titration 981.25 Amount Mvi, Adult No.4 with Vit 981.25 K 10 ml Trace (Conc-1Ml/ Dose) 1 ml Sodium Acetate 44 meq Calcium Gluconate 1 gm Magnesium Sulfate gm 1 gm Sodium Phosphate 9 mmol In Amino Acid 5%- D15w 1,000 ml @ 75 mls/hr IV .BY DURATION [facility] [place] Rx#: [id number] Output: Drainage 80 55 Lower Left Abdomen 70 50 Medial Abdomen 10 5 Urine 1050 500 400 Other: Voiding Method Indwelling Catheter Indwelling Catheter Indwelling Catheter ABP, PAP, CO, CI - Last Documented Arterial Blood Pressure 90/59 - Labs CBC & Chem 7: 04/29/24 05:36 04/30/24 03:28 Labs: Abnormal Lab Results - Last 24 Hours (Table) 04/29/24 04/30/24 04/30/24 Range/Units 16:40 00:03 03:28 Sodium 133 L (137-145) mmol/L BUN 41 H (7-17) mg/dL Glucose 138 H (74-99) mg/dL POC Glucose (mg/dL) 154 H 171 H (70-110) mg/dL 04/30/24 Range/Units 05:59 Sodium (137-145) mmol/L BUN (7-17) mg/dL Glucose (74-99) mg/dL POC Glucose (mg/dL) 157 H (70-110) mg/dL Assessment and Plan Plan: Assessment: 1. Acute kidney injury secondary to hemodynamic ATN. Renal function better. Creatinine 0.97. Unknown baseline renal function. UA fairly benign. No hydronephrosis noted on kidney ultrasound. 2. A-fib with RVR status post amiodarone drip. Now on oral amiodarone and Lopressor. 3. Perforated duodenal ulcer status post exploratory laparotomy with modified Lee patch April 09, 2024 with reexploration on April 12, 2024. Surgery following. 4. Metabolic acidosis secondary to acute kidney injury. Stable. 5. Hypophosphatemia from poor intake. Replaced. Improved. 6. Acute hypoxic respiratory failure. Now on nasal cannula. 7. Volume overload. Improved with diuresis. 8. Hypokalemia from diuresis. Resolved. Plan: Maintain TPN per surgery. Continue to monitor renal function and urine output. Avoid nephrotoxins. Hospice being considered.
[2024-04-30 12:14] LABS: Glucose,Whole Blood 159 mg/dL (70-110)
--- NOTE | 2024-04-30 12:42 | P.PN ---
Subjective Progress Note Date: 04/30/24 Principal diagnosis: Reason for follow-up is perforated duodenal ulcer/peritonitis Patient is a 88-year-old female presenting to the hospital abdominal pain diagnosed with the pneumoperitoneum secondary to the perforated jejunal ulcer status post laparotomy and modified Lee patch.Patient is status post reexploration with Billroth II gastrectomy with Myles-en-Y reconstruction completed on 04/12/2024 On today's evaluation that is 04/30/2024, Patient is afebrile this morning and denies any chills, patient mention breathing comfortably and is currently on 3 L current oxygen, patient denies any chest pain occasional cough patient denies any abdominal pain no diarrhea no nausea no vomiting mention feeling slightly better. Patient did have a creatinine 0.97 no CBC was done today Objective - Vital Signs Vital signs: Vital Signs Temp 98.3 F 04/30/24 07:21 Pulse 80 04/30/24 12:28 Resp 17 04/30/24 07:21 BP 125/65 04/30/24 07:21 Pulse Ox 98 04/30/24 07:21 FiO2 70 04/18/24 14:00 Intake & Output 04/29/24 04/30/24 04/30/24 18:59 06:59 18:59 Intake Total 981.25 Output Total 1130 555 400 Balance -1130 426.25 -400 Intake: Intake, IV Titration 981.25 Amount Mvi, Adult No.4 with Vit 981.25 K 10 ml Trace (Conc-1Ml/ Dose) 1 ml Sodium Acetate 44 meq Calcium Gluconate 1 gm Magnesium Sulfate gm 1 gm Sodium Phosphate 9 mmol In Amino Acid 5%- D15w 1,000 ml @ 75 mls/hr IV .BY DURATION [facility] Rx#: [id number] Output: Drainage 80 55 Lower Left Abdomen 70 50 Medial Abdomen 10 5 Urine 1050 500 400 Other: Voiding Method Indwelling Catheter Indwelling Catheter Indwelling Catheter ABP, PAP, CO, CI - Last Documented Arterial Blood Pressure 90/59 - Exam GENERAL DESCRIPTION: An elderly female lying in bed in no distress RESPIRATORY SYSTEM: Unlabored breathing , decreased breath sounds at bases HEART: S1 S2 regular rate and rhythm , ABDOMEN: Soft , mild tenderness EXTREMITIES: No edema feet - Labs CBC & Chem 7: 04/29/24 05:36 04/30/24 03:28 Labs: Abnormal Lab Results - Last 24 Hours (Table) 04/29/24 04/30/24 04/30/24 Range/Units 16:40 00:03 03:28 Sodium 133 L (137-145) mmol/L BUN 41 H (7-17) mg/dL Glucose 138 H (74-99) mg/dL POC Glucose (mg/dL) 154 H 171 H (70-110) mg/dL 04/30/24 04/30/24 Range/Units 05:59 12:13 Sodium (137-145) mmol/L BUN (7-17) mg/dL Glucose (74-99) mg/dL POC Glucose (mg/dL) 157 H 159 H (70-110) mg/dL Assessment and Plan (1) Peritonitis Current Visit: Yes Status: Acute Code(s): K65.9 - PERITONITIS, UNSPECIFIED SNOMED Code(s): 08839642 (2) Leukocytosis Current Visit: Yes Status: Acute Code(s): D72.829 - ELEVATED WHITE BLOOD CELL COUNT, UNSPECIFIED SNOMED Code(s): 202896645 (3) Perforated duodenal ulcer Current Visit: Yes Status: Acute Code(s): K26.5 - CHRONIC OR UNSPECIFIED DU ODENAL ULCER WITH PERFORATION SNOMED Code(s): 60870189 Plan: 1patient presented to hospital with abdominal pain constipation has been diagnosed with the pneumoperitoneum secondary to perforated duodenal ulcer status post laparotomy and repair of the perforated jejunal ulcer we will need to cover for gram-negative and yeast. 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 please excuse any grammatical, word or spelling errors. Time with Patient: Less than 30
--- NOTE | 2024-04-30 12:44 | P.PN ---
Subjective Progress Note Date: 04/30/24 Principal diagnosis: Perforated duodenal ulcer Patient doing about the same. She is alert. No confusion today that is appreciated. Juju is at the bedside. They spoke with hospice yesterday and plan to speak further with social work tomorrow. No nausea or vomiting. Some c ough. Some dark color to the cough. Objective - Vital Signs Vital signs: Vital Signs Temp 98.3 F 04/30/24 07:21 Pulse 80 04/30/24 12:28 Resp 17 04/30/24 07:21 BP 125/65 04/30/24 07:21 Pulse Ox 98 04/30/24 07:21 FiO2 70 04/18/24 14:00 Intake & Output 04/29/24 04/30/24 04/30/24 18:59 06:59 18:59 Intake Total 981.25 Output Total 1130 555 400 Balance -1130 426.25 -400 Intake: Intake, IV Titration 981.25 Amount Mvi, Adult No.4 with Vit 981.25 K 10 ml Trace (Conc-1Ml/ Dose) 1 ml Sodium Acetate 44 meq Calcium Gluconate 1 gm Magnesium Sulfate gm 1 gm Sodium Phosphate 9 mmol In Amino Acid 5%- D15w 1,000 ml @ 75 mls/hr IV .BY DURATION [facility] Rx#: [id number] Output: Drainage 80 55 Lower Left Abdomen 70 50 Medial Abdomen 10 5 Urine 1050 500 400 Other: Voiding Method Indwelling Catheter Indwelling Catheter Indwelling Catheter ABP, PAP, CO, CI - Last Documented Arterial Blood Pressure 90/59 - Exam Abdomen: Soft, nondistended, nontender, incision clean and dry, both drains serous - Labs CBC & Chem 7: 04/29/24 05:36 04/30/24 03:28 Labs: Abnormal Lab Results - Last 24 Hours (Table) 04/29/24 04/30/24 04/30/24 Range/Units 16:40 00:03 03:28 Sodium 133 L (137-145) mmol/L BUN 41 H (7-17) mg/dL Glucose 138 H (74-99) mg/dL POC Glucose (mg/dL) 154 H 171 H (70-110) mg/dL 04/30/24 04/30/24 Range/Units 05:59 12:13 Sodium (137-145) mmol/L BUN (7-17) mg/dL Glucose (74-99) mg/dL POC Glucose (mg/dL) 157 H 159 H (70-110) mg/dL Assessment and Plan (1) Perforated duodenal ulcer Narrative/Plan: Patient with slow gastric emptying on recent upper GI. Patient and friend is trying to decide regarding possible hospice or proceeding with further interven tion/workup. Will schedule tentatively for EGD with biopsy and possible dilation tomorrow. Await their decision. Current Visit: Yes Status: Acute Code(s): K26.5 - CHRONIC OR UNSPECIFIED DUODENAL ULCER WITH PERFORATION SNOMED Code(s): 83026687
--- NOTE | 2024-04-30 13:37 | P.PN ---
Subjective Progress Note Date: 04/30/24 This is an 88-year-old female, recent history of fall about 2 weeks ago, sustained bruising to her left ribs. Patient was brought in yesterday to the ER mostly with symptoms of weakness, failure to thrive, poor oral intake, and suspected dehydration. Patient was also complaining of cough and shortness of breath, no fever no chills, no nausea no vomiting. In addition the patient had no bowel movement for the last 4 days. Apparently the patient has been experiencing intermittent episodes of confusion for the last 1 year. Workup in the ER included a CT of the abdomen and pelvis, it showed pneumoperitoneum and free fluid. Patient was felt that she has ruptured viscus, she was seen by surgery and she underwent exploratory laparotomy for her pneumoperitoneum, and she was found to have perforated duodenal ulcer. Patient had modified Lee patch and postoperatively the patient was extubated nonetheless she was admitted to the ICU, and this consult was initiated. I saw the patient in the ICU this morning, she is on 4 L nasal cannula, does not seem to be in any distress. She is already on Zosyn, and I added Diflucan. She is on LR at 125 cc/h. 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 Patient seen examined. Currently sitting upright in the chair. States she feels much better. Had a bowel movement this morning. Denies any nausea or vomiting On today's evaluation of 04/17/2024, the patient is being seen for a follow-up. The patient is recovering from her abdominal surgery. The patient undergone exploratory laparotomy and repair of a perforated duodenal ulcer and she is postop day #8 subsequent the patient required a bit to gastrectomy and the patient is this morning, the patient has awake and alert and she is currently on med oxygen. She is in normal sinus rhythm. She is on TPN which is running at a rate of 40 cc an hour. She remains on IV Zosyn. She is using the incentive spirometer. The patient has 2 SHRUTHI drains. The medial drain has drained approximately 180 cc of serous material and the right lower abdominal drain has put out approximately 10 cc. She has had paroxysmal atrial fibrillation. She remains on amiodarone running at 0.5 mg/min. The white cell count is at 17 with a hemoglobin 9.1 and a platelet count of 431. BUN is 28 with a creatinine of 1. Electrolytes are normal limits. LFTs are normal. Blood sugar is at 183. The patient remains on empiric antibiotic coverage with IV Zosyn. She is being given oral diet today. Should be able also to take her oral medication. Surgical abdominal wound scar is dry clean and intact. He is alert and awake and communicating. 04/18/2024, the patient is on BiPAP. The patient decompensated overnight and became hypoxic. Chest x-ray was done and the patient was found to have large bilateral pleural effusion the patient was given Lasix. Noted the patient was on room air oxygen prior to her being transferred to the medical floor. At that point, the patient was placed on a BiPAP. She was started on the Lasix. This morning, she remains on BiPAP at a pressure of over 5 cm of water and FiO2 was brought up to 70%. No chest pain. She is awake and alert and she is producing adequate amount of urine output. The white cell count is currently up to On her blood work 38.9 with a hemoglobin of 9 and a platelet count of 443. BUN is 32 with a creatinine of 1.2 and sodium levels of 136. I repeated her blood work again and her white cell count is up to 40 with a hemoglobin of 8.8. The patient got transferred to the intensive care unit. Immediately, I performed an ultrasound of the chest that showed bilateral pleural effusion and thoracentesis of the right lung was done, pending follow-up chest x-ray and a total of 600 cc of pleural fluid aspirated from the right lung. Hemodynamically stable. No hypotension. Remains on TPN. Remains on IV Zosyn. Remains on Lasix 20 mg IV every 12 hours. Awake and alert and communicating. On today's evaluation of 04/19/2024, the patient seems to be more comfortable compared to yesterday. The patient is currently on 2 L of oxygen by nasal cannula. The patient was at the pulmonary edema and developed bilateral pleural effusions. The patient had a thoracentesis yesterday without any complication. A total of 650 cc of pleural fluid was aspirated from the right lung. A repeat chest x-ray from today showing improvement in the volume status. There is still increased interstitial markings bilaterally and small bilateral pleural effusions in the lung bases bilaterally. The patient remains on IV Lasix. The patient is producing adequate amount of urine output. Nevertheless, the fluid balance over the past 24 hours has been +500 cc. The patient remains on TPN for nutritional support. The patient is receiving TPN at a rate of 60 cc an hour. The patient is also on a combination of Zosyn and Eraxis, and vancomycin.. Oxygenation is improved and the patient is currently off the BiPAP and the patient currently is on 3 L of oxygen by nasal cannula. BUN is 40 with a creat inine of 1.2. Sodium level is 137, white cell count is improved is currently down to 21 with a hemoglobin of 7.5 and a platelet count of 393. No other significant events otherwise and the patient's condition is slightly more stable compared to yesterday. She is awake and alert and communicating. 04/20. Patient seen and examined. Blood work done this morning showed WBC 13.9, hemoglobin 6.6, platelet count 397, sodium 135, potassium 3.1, BUN 40, creatinine 1.21, glucose 185. Patient being transfused unit of packed red blood cell. Patient had dark-colored stool this morning. 04/21. Patient seen and examined. Blood work done this morning showed sodium 135, potassium 4, BUN 44, creatinine 1.18, glucose 162,. Patient was coughing up dark-colored phlegm. Surgery ordered stat CBC. Patient was having blood in the stools 04/22. Patient seen and examined. Patient had dark stool this morning, coughing up some dark material as well. General surgery aware. Repeat CBC ordered 04/23. Patient seen examined. Blood work done this morning showed WBC 12.8, hemoglobin 9, sodium 135, potassium 3.5, BUN 53, creatinine 1.23. States she feels slightly better. 04/29. Dr. Rodgers took over care from Dr. Campoverde. Patient is currently n.p.o., DPOA at the bedside. Apparently patient not doing well, complaining abdominal pain, has poor appetite. DPOA inquiring about hospice. Hospice consulted 04/30. Patient seen and examined. Hospice has been consulted, they have talked with patient. Patient complaining of back pain. Denies any fever or chills. REVIEW OF SYSTEMS: CONSTITUTIONAL: No fever, no malaise,. CARDIOVASCULAR: No chest pain, no palpitations, no syncope. PULMONARY: No shortness of breath, no cough, GASTROINTESTINAL: As mentioned above NEUROLOGICAL: No headaches, no weakness, PHYSICAL EXAMINATION: GENERAL: The patient is alert , chronically ill looking, looks in distress HEENT: Pupils are round and equally reacting to light. EOMI. No scleral icterus. No conjunctival pallor. Normocephalic, atraumatic. No pharyngeal erythema. No thyromegaly. CARDIOVASCULAR: S1 and S2 present. No murmurs, rubs, or gallops. PULMONARY: Diminished breath sound the bases bilaterally, no wheeze ABDOMEN: Soft, nontender, absent bowel sounds, SHRUTHI drain seen MUSCULOSKELETAL: No joint swelling or deformity. EXTREMITIES: No cyanosis, clubbing, or pedal edema. NEUROLOGICAL: Gross neurological examination did not reveal any focal deficits. SKIN: No rashes. Assessment and plan S/P exploratory laparotomy, repair of perforated duodenal ulcer, and application of a modified Lee patch. status post Billroth II gastrectomy, and Myles-en-Y reconstruction. Upper GI series, showing leak, at the site of the modified Lee patch. acute abdominal sepsis. Acute atrial fibrillation, with rapid ventricular response. Acute dehydration with acute kidney injury. Nonanion gap metabolic acidosis. Leukocytosis, secondary to sepsis. Hypovolemic hyponatremia, Monitor vital signs Monitor CBC Monitor CMP Currently n.p.o. Continue IV Zosyn and Eraxis Continue amiodarone,Not a good anticoagulation candidate currently with concern of continued leak and decrease in Hgb General surgery following, patient is not a good candidate for any further surgical procedures per surgery Hospice consulted Labs and medication were reviewed.. Continue same treatment. Continue with symptomatic treatment. Resume home medication. Monitor labs and vitals. DVT and GI prophylaxis. Further recommendations as per clinical course of the patient Dictation was produced using [employer] dictation software. please excuse any grammatical, word or spelling errors. Objective - Vital Signs Vital signs: Vital Signs Temp 98.3 F 04/30/24 07:21 Pulse 80 04/30/24 08:58 Resp 17 04/30/24 07:21 BP 125/65 04/30/24 07:21 Pulse Ox 98 04/30/24 07:21 FiO2 70 04/18/24 14:00 Intake & Output 04/29/24 04/30/24 04/30/24 18:59 06:59 18:59 Intake Total 981.25 Output Total 1130 555 400 Balance -1130 426.25 -400 Intake: Intake, IV Titration 981.25 Amount Mvi, Adult No.4 with Vit 981.25 K 10 ml Trace (Conc-1Ml/ Dose) 1 ml Sodium Acetate 44 meq Calcium Gluconate 1 gm Magnesium Sulfate gm 1 gm Sodium Phosphate 9 mmol In Amino Acid 5%- D15w 1,000 ml @ 75 mls/hr IV .BY DURATION [facility] Rx#: [id number] Output: Drainage 80 55 Lower Left Abdomen 70 50 Medial Abdomen 10 5 Urine 1050 500 400 Other: Voiding Method Indwelling Catheter Indwelling Catheter ABP, PAP, CO, CI - Last Documented Arterial Blood Pressure 90/59 - Labs CBC & Chem 7: 04/29/24 05:36 04/30/24 03:28 Labs: Abnormal Lab Results - Last 24 Hours (Table) 04/29/24 04/29/24 04/30/24 Range/Units 11:54 16:40 00:03 Sodium (137-145) mmol/L BUN (7-17) mg/dL Glucose (74-99) mg/dL POC Glucose (mg/dL) 200 H 154 H 171 H (70-110) mg/dL 04/30/24 04/30/24 Range/Units 03:28 05:59 Sodium 133 L (137-145) mmol/L BUN 41 H (7-17) mg/dL Glucose 138 H (74-99) mg/dL POC Glucose (mg/dL) 157 H (70-110) mg/dL
[2024-04-30 17:07] LABS: Glucose,Whole Blood 120 mg/dL (70-110)
[2024-04-30] MEDS: MAGNESIUM SULFATE IV SCH (17:52)
[2024-04-30] MEDS: SODIUM ACETATE IV SCH (17:52)
[2024-04-30] MEDS: [UNRECOGNIZED DRUG - OTHER] IV SCH (17:52)
[2024-04-30] MEDS: CALCIUM GLUCONATE IV SCH (17:52)
[2024-05-01 00:42] LABS: Glucose,Whole Blood 173 mg/dL (70-110)
[2024-05-01 03:13] LABS: Glucose,Whole Blood 133 mg/dL (70-110)
[2024-05-01 06:10] LABS: African American GFR (CKD) 64 (>60 ml/min/1.73 sqM); Anion Gap 5 mmol/L; Blood Urea Nitrogen 42 mg/dL (7-17); Calcium 8.3 mg/dL (8.4-10.2); Carbon Dioxide 22 mmol/L (22-30); Chloride 108 mmol/L (98-107); Glucose 168 mg/dL (74-99); Non-African American GFR(CKD) 55 (>60 ml/min/1.73 sqM); Phosphorus 3.1 mg/dL (2.5-4.5); Potassium 4.6 mmol/L (3.5-5.1); Sodium 135 mmol/L (137-145)
--- NOTE | 2024-05-01 08:29 | P.PN ---
Subjective Progress Note Date: 05/01/24 This is an 80-year-old female with a history of a recent fall about 2 weeks ago who was brought into the emergency department with complaints of weakness and poor oral intake. Patient had an exploratory laparotomy and was found to have a perforated duodenal ulcer with a Lee patch placed. She remains in ICU. She is alert and oriented. She is still significantly weak. 04/11/2024 Patient seen and evaluated sitting in chair at bedside this morning. Yesterday had a salvador catheter placed by urology. Patient reports she is very sore today. 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 Valencia. Patient tolerated well. She remains on mechanical ventilation. 04/17/2024 Patient seen this morning laying in bed comfortably. She remains off of mechanical ventilation. She is still NPO and is on TPN. She reports pain is controlled. 04/18/2024 Patient seen this morning laying in bed with BiPAP on. She does report a little more pain today. She still remains on TPN, however a clear liquid diet has been ordered. 04/24/2024 Patient seen and evaluated this morning sitting up in chair at bedside. She remains on 2 L of oxygen via nasal cannula. She remains on TPN and a full liquid diet. Over the weekend hemoglobin dropped to 6.5 and patient received 1 unit of packed red blood cells. Repeat hemoglobin yesterday was 9.6. Labs pending for today. Patient is still quite weak and does not have much of an appetite. Nursing staff does note patient continues to have liquid black stool and is coughing up black and harris sputum. 04/25/2024 Patient seen and evaluated laying in bed this morning. Salvador was removed yesterday and patient has had high PVR's and patient has been more anxious. Oralia sing waiting to hear back from urology. Hemoglobin stable yesterday, labs for today not back at time of dictation. Surgeon advanced patient's diet yesterday. Vitals are stable. Nurse reports patient is still having black stool. 04/27/2024 Patient seen and evaluated laying in bed this morning with sitter present. She is currently NPO and remains on TPN. Hemoglobin yesterday was 7.7, labs for tod ay not back at time of dictation. Patient does appear more fatigued today. Salvador catheter in place. 05/01/2024 Patient seen and evaluated laying in bed this morning. Hospice was consulted over the weekend and patient and her friend are deciding the best option for her. EGD with possible dilation planned for this morning. Patient remains NPO. She is more fatigued today. Objective - Vital Signs Vital signs: Vital Signs Temp 98.0 F 05/01/24 06:58 Pulse 69 05/01/24 06:58 Resp 20 05/01/24 06:58 BP 151/71 05/01/24 06:58 Pulse Ox 97 05/01/24 06:58 FiO2 70 04/18/24 14:00 Intake & Output 04/30/24 05/01/24 05/01/24 18:59 06:59 18:59 Intake Total 948.75 Output Total 1440 2045 Balance -1440 -1096.25 Intake: Intake, IV Titration 948.75 Amount Mvi, Adult No.4 with Vit 948.75 K 10 ml Trace (Conc-1Ml/ Dose) 1 ml Sodium Acetate 50 meq Calcium Gluconate 1 gm Magnesium Sulfate gm 1 gm Sodium Phosphate 9 mmol Potassium Chloride 10 meq In Amino Acid 5%- D15w 1,000 ml @ 75 mls/hr IV .BY DURATION [facility] Rx#: [id number] Output: Drainage 40 45 Lower Left Abdomen 40 40 Medial Abdomen 0 5 Urine 1400 2000 Other: Voiding Method Indwelling Catheter Indwelling Catheter # Bowel Movements 1 ABP, PAP, CO, CI - Last Documented Arterial Blood Pressure 90/59 - Constitutional General appearance: Present: cooperative, no acute distress - EENT Eyes: Present: PERRLA - Neck Neck: Present: normal ROM. Absent: lymphadenopathy, rigidity - Respiratory Respiratory: bilateral: CTA - Cardiovascular Heart sounds: normal: S1, S2 - Gastrointestinal General gastrointestinal: Present: soft - Integumentary Integumentary: Present: normal, normal turgor - Psychiatric Psychiatric: Present: A&O x's 3 - Labs CBC & Chem 7: 04/29/24 05:36 05/01/24 05:09 Labs: Abnormal Lab Results - Last 24 Hours (Table) 04/30/24 04/30/24 05/01/24 Range/Units 12:13 17:06 00:41 Sodium (137-145) mmol/L Chloride (98-107) mmol/L BUN (7-17) mg/dL Glucose (74-99) mg/dL POC Glucose (mg/dL) 159 H 120 H 173 H (70-110) mg/dL Calcium (8.4-10.2) mg/dL 05/01/24 05/01/24 Range/Units 03:11 05:09 Sodium 135 L (137-145) mmol/L Chloride 108 H (98-107) mmol/L BUN 42 H (7-17) mg/dL Glucose 168 H (74-99) mg/dL POC Glucose (mg/dL) 133 H (70-110) mg/dL Calcium 8.3 L (8.4-10.2) mg/dL Microbiology - Last 24 Hours (Table) 04/25/24 15:21 Blood Culture - Final Blood Assessment and Plan (1) Dehydration Current Visit: Yes Status: Acute Code(s): E86.0 - DEHYDRATION SNOMED Code(s): 81822453 (2) Acute kidney injury Current Visit: Yes Status: Acute Code(s): N17.9 - ACUTE KIDNEY FAILURE, UNSPECIFIED SNOMED Code(s): 17294973 (3) 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
[2024-05-01 11:41] LABS: Glucose,Whole Blood 198 mg/dL (70-110)
[2024-05-01] MEDS ORDERED: PROPOFOL 10 MG/ML 20 ML VIAL IV ONE (12:04)
[2024-05-01] MEDS: IV FLUID CONTINUATION 1,000 ML IV ONE ×2 (12:08→12:19)
--- NOTE | 2024-05-01 12:17 | P.PN ---
Subjective Progress Note Date: 05/01/24 This is an 88-year-old female, recent history of fall about 2 weeks ago, sustained bruising to her left ribs. Patient was brought in yesterday to the ER mostly with symptoms of weakness, failure to thrive, poor oral intake, and suspected dehydration. Patient was also complaining of cough and shortness of breath, no fever no chills, no nausea no vomiting. In addition the patient had no bowel movement for the last 4 days. Apparently the patient has been experiencing intermittent episodes of confusion for the last 1 year. Workup in the ER included a CT of the abdomen and pelvis, it showed pneumoperitoneum and free fluid. Patient was felt that she has ruptured viscus, she was seen by surgery and she underwent exploratory laparotomy for her pneumoperitoneum, and she was found to have perforated duodenal ulcer. Patient had modified Lee patch and postoperatively the patient was extubated nonetheless she was admitted to the ICU, and this consult was initiated. I saw the patient in the ICU this morning, she is on 4 L nasal cannula, does not seem to be in any distress. She is already on Zosyn, and I added Diflucan. She is on LR at 125 cc/h. Her WBC count is 28.6, electrolytes are normal hemoglobin is 10.7 BUN is 97 creatinine down to 2.45 from 3.27 yesterday. Progress note dated April 10, 2024. 88-year-old female seen yesterday in consultation. She was admitted on April 08, with confusion and weakness. The patient had a repair of a perforated duodenal ulcer on April 09. Today is postop day #1. She is currently seen today in room 261. She is currently on 6 L of oxygen by nasal cannula. She has an NG tube in place. She is getting lactated Ringer's at 125 cc an hour. For atrial fibrillation with a rapid ventricular response, she was started on Cardizem drip at 5 mg an hour, and amiodarone 0.5 mg/min. No new labs today other than a glucose of 154. The labs from yesterday are reviewed. White count was 28.6. Hemoglobin 10.7, platelet count was normal. BUN and creatinine were 97 and 2.45. Chest x-ray suggested bilateral pleural effusions. Progress note dated April 11, 2024. 88-year-old female seen today in room 261. The patient was admitted on April 08, with confusion and weakness. The patient was discovered to have a perforated duodenal ulcer, and had a surgical repair performed on April 09. Today is postop day #2. The patient is currently without distress. She is on room air. NG tube remains in place. She is getting lactated Ringer's at 75 cc an hour. Because of atrial fibrillation and RVR, she continues on amiodarone 0.5 mg/min, and Cardizem at 5 mg an hour. Lab data includes a white count 34.6, hemoglobin 9.1, hematocrit 36.6, and a platelet count 442,000. Sodium 143, potassium 4.1, chlorides 113, CO2 23, BUN 71, creatinine 1.64. Glucose is 134. Albumin is 2.3. Blood cultures are currently negative. No chest x-ray today has been ordered. Progress note dated April 12, 2024. This is an 88-year-old female who is seen in room 261. The patient was admitted back on April 08, with confusion and weakness. She was discovered to have a perforated duodenal ulcer, and had surgical repair performed on April 09. Today is postoperative day #3. The patient is going to have a upper GI study today. She is getting lactated Ringer's at 75 cc an hour, 3 L of oxygen by nasal cannula, Cardizem at 5 mg an hour, and amiodarone at 0.5 mg/min. White count was 37.4, hemoglobin 11.6, hematocrit 38.5, and platelet count was normal. Sodium 145, potassium 3.2, chloride 115, CO2 24, BUN 52, creatinine 1.26. Glucose 123. Calcium 8.2. BUN 2.2. Blood cultures are currently negative. The patient's chest x-ray is stable, with some basilar atelectasis on the right. Upper GI study showed a leak, at the site of patch placement, in the duodenal bulb. Progress note dated April 13, 2024. 88-year-old female seen today in room 261. The patient is postop day #1, status post Billroth II gastrectomy, and Myles-en-Y reconstruction. The patient is currently on the ventilator. Ventilator settings include volume assist-control, rate 16, tidal volume 350, FiO2 40%, PEEP of 5. Blood gases show pO2 128, pCO2 34, pH is 7.43. The blood gases were done on 50% FiO2. The patient is on lactated Ringer's at 75 cc an hour, amiodarone 0.5 mg/min, Cardizem at 5 mg/h, and propofol, is restarted at a low rate. Current labs include a white count 34.8, hemoglobin 9.5, hematocrit 32.2, and a platelet count of 325,000. Sodium 141, potassium 4, chloride 114, CO2 21, BUN 48, creatinine 1.51. Glucose is 133. Calcium is 7. Blood cultures are negative. Chest x-ray shows in addition to endotracheal tube, and central venous line, blunting of the costophrenic angles. Progress note dated April 14, 2024. 88-year-old female seen today in room 261. She is postop day #2, status post Billroth II gastrectomy and Myles-en-Y reconstruction. The patient is on the ventilator. She was maintained on the ventilator overnight. Currently, the patient is on volume assist-control, rate 16, tidal volume 350, FiO2 30%, PEEP of 5. Blood gases show pO2 of 148, pCO2 33, pH is 7.42. Blood gases were done on 40%. The patient continues on amiodarone at 0.5 mg/min, lactated Ringer's at 75 cc an hour, propofol at 35 mcg/kg/min, and TPN at 30 cc an hour, to be increased to 55 cc an hour. Current white count is 25.2, hemoglobin 9.5, hematocrit 35.5, platelet count 362,000. Sodium 142, potassium 3.3, chlorides 112, CO2 25, BUN 50, creatinine 1.83. Albumin level was 1.9. Chest x-ray is largely unchanged. Progress note dated April 15, 2024. The patient is seen again in room 261. The patient was successfully extubated yesterday, April 14. She is currently on room air. She is receiving a saline IV at KVO, and TPN at 40 cc an hour. Current labs include a white count 18.1, hemoglobin 8.9, hematocrit 27.4, and a platelet count of 334,000. Sodium 140, potassium 3.9, chlorides 114, CO2 23, BUN 46, and creatinine 1.36. Glucose is 170. Calcium is 7.2. Phosphorus is 1.9. Magnesium is 2.0. Progress note dated April 16, 2024. The patient is seen today in room 261. She is currently on room air. She continues on amiodarone at 0.5 mg/min. She is getting TPN at 40 cc an hour, and saline at KVO. She does continue on Zosyn. All her cultures are thus far negative. She has no specific complaints today. According to the nurse, she is a bit anxious. Current labs include a sodium 139, potassium 3.9, chlorides 114, CO2 23, BUN 35, and creatinine 1.15. Glucose is 178. Calcium 7.5, phosphorus 2.3, and magnesium is normal. Culture data is negative. Venous Doppler yesterday, shows a superficial venous thrombosis involving the cephalic vein, of the left upper extremity. On today's evaluation of 04/17/2024, the patient is being seen for a follow-up. The patient is recovering from her abdominal surgery. The patient undergone exploratory laparotomy and repair of a perforated duodenal ulcer and she is postop day #8 subsequent the patient required a bit to gastrectomy and the patient is this morning, the patient has awake and alert and she is currently on med oxygen. She is in normal sinus rhythm. She is on TPN which is running at a rate of 40 cc an hour. She remains on IV Zosyn. She is using the incentive spirometer. The patient has 2 SHRUTHI drains. The medial drain has drained approximately 180 cc of serous material and the right lower abdominal drain has put out approximately 10 cc. She has had paroxysmal atrial fibrillation. She remains on amiodarone running at 0.5 mg/min. The white cell count is at 17 with a hemoglobin 9.1 and a platelet count of 431. BUN is 28 with a creatinine of 1. Electrolytes are normal limits. LFTs are normal. Blood sugar is at 183. The patient remains on empiric antibiotic coverage with IV Zosyn. She is being given oral diet today. Should be able also to take her oral medication. Surgical abdominal wound scar is dry clean and intact. He is alert and awake and communicating. 04/18/2024, the patient is on BiPAP. The patient decompensated overnight and became hypoxic. Chest x-ray was done and the patient was found to have large bilateral pleural effusion the patient was given Lasix. Noted the patient was on room air oxygen prior to her being transferred to the medical floor. At that point, the patient was placed on a BiPAP. She was started on the Lasix. This morning, she remains on BiPAP at a pressure of over 5 cm of water and FiO2 was brought up to 70%. No chest pain. She is awake and alert and she is producing adequate amount of urine output. The white cell count is currently up to On her blood work 38.9 with a hemoglobin of 9 and a platelet count of 443. BUN is 32 with a creatinine of 1.2 and sodium levels of 136. I repeated her blood work again and her white cell count is up to 40 with a hemoglobin of 8.8. The patient got transferred to the intensive care unit. Immediately, I performed an ultrasound of the chest that showed bilateral pleural effusion and thoracentesis of the right lung was done, pending follow-up chest x-ray and a total of 600 cc of pleural fluid aspirated from the right lung. Hemodynamically stable. No hypotension. Remains on TPN. Remains on IV Zosyn. Remains on Lasix 20 mg IV every 12 hours. Awake and alert and communicating. On today's evaluation of 04/19/2024, the patient seems to be more comfortable comp ared to yesterday. The patient is currently on 2 L of oxygen by nasal cannula. The patient was at the pulmonary edema and developed bilateral pleural effusions. The patient had a thoracentesis yesterday without any complication. A total of 650 cc of pleural fluid was aspirated from the right lung. A repeat chest x-ray from today showing improvement in the volume status. There is still increased interstitial markings bilaterally and small bilateral pleural effusions in the lung bases bilaterally. The patient remains on IV Lasix. The patient is producing adequate amount of urine output. Nevertheless, the fluid balance over the past 24 hours has been +500 cc. The patient remains on TPN for nutritional support. The patient is receiving TPN at a rate of 60 cc an hour. The patient is also on a combination of Zosyn and Eraxis, and vancomycin.. Oxygenation is improved and the patient is currently off the BiPAP and the patient currently is on 3 L of oxygen by nasal cannula. BUN is 40 with a creatinine of 1.2. Sodium level is 137, white cell count is improved is currently down to 21 with a hemoglobin of 7.5 and a platelet count of 393. No other significant events otherwise and the patient's condition is slightly more stable compared to yesterday. She is awake and alert and communicating. On 04/20/2024, the patient is being seen for a follow-up. The patient is doing well on 3 L of oxygen by nasal cannula. No significant respiratory distress. A follow-up chest x-ray was done today and showed improvement in volume status with small bilateral pleural effusion and some increased interstitial markings bilaterally. Nevertheless, the patient has been diuresed adequately and the patient is currently in negative fluid balance and the patient will be switched to oral Lasix. IV Lasix will be discontinued and the patient has been switched to 40 mg of Lasix on a daily basis. Remains on TPN for nutritional support. She did have a bloody bowel movement, unsure if it is melanotic. This will be monitored as the patient hemoglobin has remeasured at 8.7 on today's evaluation. The white cell count is 15.8. BUN is 48 with a creatinine 1.2 and sodium levels at 135 and a potassium level of 3.1. LFTs are all stable. Antibiotic coverage remains unchanged and the patient remains on a combination of Eraxis and Zosyn. Surgical wound site is dry clean and intact. Renal function remained stable On 04/21/2024, seen the patient for a follow-up. She is currently on room air oxygen. She is having some coffee-ground material in her mouth and I suspect ongoing GI bleed. Note that the patient's hemoglobin had dropped down to 6.6 and the patient does get transfused with packed RBC and a subsequent hemoglobin is up to 8.7 and currently is at 8.1. No acute evidence of any active upper GI bleeding. The patient is awake and alert and communicating. She remains on TPN for nutritional support. Surgical scars are dry clean and intact. Antibiotic coverage with IV Zosyn and Eraxis per IDs recommendations. As mentioned, the patient is postthoracentesis. The patient is currently on diuretics and the patient receiving Lasix 40 mg p.o. daily.. The patient is on room air oxygen. No other significant events overnight. 04/22/2024, the patient is suspected to have some ongoing low-grade GI bleed. She is still having some black stools and coughing out some coffee-ground material. Hemoglobin is at 7.1. Noted that hemoglobin has dropped slightly compared to yesterday is down from 8.1. Respiratory status is stable. She is on 2 L of O2 nasal cannula. Pulse ox 96%. Platelet count is at 397. Remains appropriate for oxygen support. Creatinine is stable at 1.2. BUN is 52 with a sodium of 135. No other significant events overnight. Remains alert and awake and communicating. No confusion. No altered mentation. 04/23/2024, the patient had another bloody neurologic bowel movement that she is coughing out coffee-ground material. I suspect ongoing GI bleed. Noted the repeat hemoglobin from yesterday was at 6.5. The patient was given a unit of packed RBC and the hemoglobin is currently at 9. Platelet counts are stable. Abdominal exam is stable. Creatinine is at 1.2 with a BUN of 53. Sodium is at 135. Repeat hemoglobin will be obtained. She remains on TPN for nutritional support. Overall respiratory status is stable. The patient is currently on 2 L of oxygen by nasal cannula with a pulse ox of 94%. General surgery is on the case. 2023 in follow-up on the regular medical floor. She is currently sitting up in a chair. Awake and alert in no acute distress. She is maintaining O2 saturations in the 90s on 2 L/min per nasal cannula. She has been afebrile. Hemodynamically stable. White count 11.6. Hemoglobin 9.7. Platelets 495. Sodium 136. Potassium 4.4. Bicarb 25. BUN 44. Creatinine 1.03. Glucose 163. Vancomycin trough 13.9. She is status post 2 units of packed red blood cells this admission. She remains on TPN for nutritional support at 60 MLS per hour. She remains on Zosyn and Eraxis. The patient is seen today April 25, 2024 in follow-up on the regular medical floor. She is currently resting fairly comfortably in bed. Awake and alert in no acute distress. She is having issues with urinary retention and a Walters catheter needs to be replaced. She is maintaining good O2 saturations in the 90s on 2 L/min per nasal cannula. She is being nourished with TPN currently at 60 MLS per hour. She remains on Zosyn and Eraxis. Continued on bronchodilators. Acute abdominal x-ray revealed no radiographic evidence for acute abdominal process. Bibasilar small pleural effusions. White count 11.5. Hemoglobin 9.5. Platelets 490. Sodium 133. Potassium 4.1. Bicarb 24. BUN 40. Creatinine 1.10. Glucose 165. Urinalysis clean. The patient is seen today April 26, 2024 in follow-up on the regular medical floor. She is currently resting in bed. Awake and alert in no acute distress. Maintaining O2 saturations in the 90s on 2 L/min per nasal cannula. White count 15.2. Hemoglobin 7.7. Platelets 426. Sodium 134. Potassium 3.8. Bicarb 27. BUN 42. Creatinine 1.27. Glucose 164. She remains on Zosyn and Eraxis. Continued on bronchodilators. Currently in a -2 L balance. Being nourished with TPN and lipids. The patient is seen today April 27, 2024 in follow-up on the regular medical floor. She is awake and alert in no acute distress. Resting flat in bed. Denies any worsening shortness of breath, cough or congestion. She is maintaining O2 saturations in the 90s on 2 L/min per nasal cannula. White count 11.0. Hemoglobin 8.2. Platelets 496. Sodium 136. Potassium 4.3. Bicarb 25. BUN 40. Creatinine 1.24. Glucose 171. She did have a PICC line placed yesterday. Triple-lumen catheter has been removed. She remains on TPN and lipids for nutrition. Tolerating a full liquid diet. Continued on Zosyn and Eraxis. Remains on bronchodilators. The patient is seen today April 28, 2024 in follow-up on the regular medical floor. She is resting comfortably in bed. Awake and alert in no acute distress. She is maintaining O2 saturations in the 90s on 3 L/min per nasal c annula. She remains afebrile. Hemodynamically stable. She is going for an upper GI series this morning. Currently nothing by mouth. Blood and pleural fluid cultures revealed no growth. White count 10.6. Hemoglobin 8.7. Platelets 576. Sodium 134. Potassium 5.0. Bicarb 24. BUN 38. Creatinine 1.13. Glucose 153. She remains on TPN and lipids. Continued on antibiotics in the form of Zosyn. Remains on Eraxis. Continued on bronchodilators. The patient is seen today April 29, 2024 in follow-up on the regular medical floor. She is resting in bed. Awake and alert in no acute distress. She is maintaining good O2 saturations in the 90s on 3 L/min per nasal cannula. Afebrile. Hemodynamically stable. Upper GI series did reveal distention of the stomach with outlet obstruction at the duodenum. The anastomosis or free spill into the small bowel through the Myles-en-Y is not identified. No extravasation evident. KUB revealed no evidence of small bowel obstruction. White count 10.6. Hemoglobin 8.5. Platelets 582. Sodium 135. Potassium 5.2. Bicarb 23. BUN 35. Creatinine 1.12. Glucose 148. She remains on Eraxis and Zosyn. Remains on TPN and lipids. According to nursing staff there are no plans for surgical intervention at this point. Hospice has been recommended. The patient is seen today April 30, 2024 in follow-up on the regular medical floor. She is awake and alert in no acute distress. Denies any significant abdominal pain currently. She is resting in bed. She is maintaining good O2 saturations in the 90s on 3 L/min per nasal cannula. She is continued on Zosyn and Eraxis. Remains on bronchodilators. Remains on TPN and lipids. Creatinine 0.97. Glucose 138. The patient is seen today May 01, 2024 in follow-up on the regular medical floor. She is resting fairly comfortably in bed. Awake and alert in no acute distress. Maintaining good O2 saturations in the 90s on 3 L/min per nasal cannula. She has been afebrile. Hemodynamically stable. She remains on Zosyn and Eraxis. She is being nourished with TPN and lipids. The plan may be for EGD and possible dilatation of the gastric outlet obstruction. Sodium 135. Potassium 4.6. Bicarb 22. BUN 42. Creatinine 0.93. Glucose 163. Objective - Vital Signs Vital signs: Vital Signs Temp 98.0 F 05/01/24 06:58 Pulse 68 05/01/24 09:38 Resp 20 05/01/24 06:58 BP 151/71 05/01/24 06:58 Pulse Ox 100 05/01/24 09:29 FiO2 70 04/18/24 14:00 Intake & Output 07/05/01/24 05/01/24 18:59 06:59 18:59 Intake Total 948.75 Output Total 1440 5 Balance -1440 -1096.25 Weight 51 kg Intake: Intake, IV Titration 948.75 Amount Mvi, Adult No.4 with Vit 948.75 K 10 ml Trace (Conc-1Ml/ Dose) 1 ml Sodium Acetate 50 meq Calcium Gluconate 1 gm Magnesium Sulfate gm 1 gm Sodium Phosphate 9 mmol Potassium Chloride 10 meq In Amino Acid 5%- D15w 1,000 ml @ 75 mls/hr IV .BY DURATION [facility] Rx#: [id number] Output: Drainage 40 45 Lower Left Abdomen 40 40 Medial Abdomen 0 5 Urine 1400 2000 Other: Voiding Method Indwelling Catheter Indwelling Catheter Indwelling Catheter # Bowel Movements 1 ABP, PAP, CO, CI - Last Documented Arterial Blood Pressure 90/59 - Exam GENERAL EXAM: Alert, pleasant, frail 88-year-old female, resting in bed, on 3 L nasal cannula, in no acute distress. HEAD: Normocephalic. EYES: Normal reaction of pupils, equal size. NOSE: Clear with pink turbinates. THROAT: No erythema or exudates. NECK: No masses, no JVD. CHEST: No chest wall deformity. LUNGS: Equal air entry with no crackles, wheeze, rhonchi or dullness. CVS: S1 and S2 normal with no audible murmur, regular rhythm. ABDOMEN: Abdominal dressing dry and intact. SHRUTHI drains in place. No guarding or rigidity. SPINE: No scoliosis or deformity SKIN: No rashes CENTRAL NERVOUS SYSTEM: No focal deficits, tone is normal in all 4 extremities. EXTREMITIES: There is no peripheral edema. No clubbing, no cyanosis. Peripheral pulses are intact. - Labs CBC & Chem 7: 04/29/24 05:36 05/01/24 05:09 Labs: Abnormal Lab Results - Last 24 Hours (Table) 04/30/24 04/30/24 05/01/24 Range/Units 12:13 17:06 00:41 Sodium (137-145) mmol/L Chloride (98-107) mmol/L BUN (7-17) mg/dL Glucose (74-99) mg/dL POC Glucose (mg/dL) 159 H 120 H 173 H (70-110) mg/dL Calcium (8.4-10.2) mg/dL 05/01/24 05/01/24 05/01/24 Range/Units 03:11 05:09 11:39 Sodium 135 L (137-145) mmol/L Chloride 108 H (98-107) mmol/L BUN 42 H (7-17) mg/dL Glucose 168 H (74-99) mg/dL POC Glucose (mg/dL) 133 H 198 H (70-110) mg/dL Calcium 8.3 L (8.4-10.2) mg/dL Microbiology - Last 24 Hours (Table) 04/25/24 15:21 Blood Culture - Final Blood Assessment and Plan Assessment: Acute hypoxic respiratory failure, recovered and the patient was extubated on 04/14/2024. The patient was on room air oxygen and the patient got transferred to the medical floor to be readmitted back to the ICU the patient was weaned off the BiPAP and the patient is currently is on 3 L nasal cannula Acute leukocytosis, rule out septic event. Currently on IV Zosyn and Eraxis. Improved. The white cell count is at 10.6 Acute on chronic anemia consider the possibility of an ongoing GI bleed as the patient is also coughing out some coffee-ground material. Status post 2 units of packed red blood cells. Current hemoglobin 8.5 Status post re-exploration on April 12, 2024 with Billroth II gastrectomy, and Myles-en-Y reconstruction. The patient remains on TPN and lipids for nutritional support. Upper GI series performed April 28, 2024 reveals a stomach distention and outlet obstruction at the duodenum. Plan is for EGD and possible dilatation May 01, 2024 Status post exploratory laparotomy, April 09, 2024 repair of perforated duodenal ulcer, and application of a modified Lee patch. Upper GI series, showing leak, at the site of the modified Lee patch. Acute abdominal sepsis, secondary to above and the patient is currently on IV Zosyn and Eraxis. Abdominal series from 04/25/2024 revealed no acute abdominal process Acute atrial fibrillation, with rapid ventricular response. The cardiac rhythm is back to sinus, on oral amiodarone History of splenic hematoma, without rupture. The patient is currently on no anticoagulants Acute dehydration with acute kidney injury. Recovered and the patient renal function is normal Nonanion gap metabolic acidosis, recovered Hypovolemic hyponatremia, recovered Urinary retention requiring reinsertion of indwelling Walters catheter Poor functional performance based on the above-mentioned multiple comorbidities. Plan: The patient was seen and evaluated Labs and medications reviewed Treat down the FiO2 as tolerated Assure adequate pain control Being nourished with TPN and lipids Plan may be for EGD and possible dilatation today Hospice has been recommended I have personally seen and examined the patient, performed the documentation and the assessment and plan as written. Number of minutes spent on the visit: 10.
--- NOTE | 2024-05-01 12:33 | P.PN ---
Subjective Patient is seen in follow-up for acute kidney injury. Receiving TPN. Renal function at baseline. No active complaints. Guardian present at bedside. Vital signs are stable. General: No acute distress. HEENT: Head exam is unremarkable. On nasal cannula. LUNGS: No audible rhonchi or wheezes. HEART: Rate and Rhythm are regular. ABDOMEN: Nontender. SHRUTHI drain noted. EXTREMITITES: Trace edema. Objective - Vital Signs Vital signs: Vital Signs Temp 98.0 F 05/01/24 06:58 Pulse 68 05/01/24 09:38 Resp 20 05/01/24 06:58 BP 151/71 05/01/24 06:58 Pulse Ox 100 05/01/24 09:29 FiO2 70 04/18/24 14:00 Intake & Output 04/30/24 05/01/24 05/01/24 18:59 06:59 18:59 Intake Total 948.75 10 Output Total 1440 2045 Balance -1440 -1096.25 10 Weight 51 kg Intake: IV 10 Intake, IV Titration 948.75 Amount Mvi, Adult No.4 with Vit 948.75 K 10 ml Trace (Conc-1Ml/ Dose) 1 ml Sodium Acetate 50 meq Calcium Gluconate 1 gm Magnesium Sulfate gm 1 gm Sodium Phosphate 9 mmol Potassium Chloride 10 meq In Amino Acid 5%- D15w 1,000 ml @ 75 mls/hr IV .BY DURATION [facility] Rx#: [id number] Output: Drainage 40 45 Lower Left Abdomen 40 40 Medial Abdomen 0 5 Urine 1400 2000 Other: Voiding Method Indwelling Catheter Indwelling Catheter Indwelling Catheter # Bowel Movements 1 ABP, PAP, CO, CI - Last Documented Arterial Blood Pressure 90/59 - Labs CBC & Chem 7: 04/29/24 05:36 05/01/24 05:09 Labs: Abnormal Lab Results - Last 24 Hours (Table) 04/30/24 05/01/24 05/01/24 Range/Units 17:06 00:41 03:11 Sodium (137-145) mmol/L Chloride (98-107) mmol/L BUN (7-17) mg/dL Glucose (74-99) mg/dL POC Glucose (mg/dL) 120 H 173 H 133 H (70-110) mg/dL Calcium (8.4-10.2) mg/dL 05/01/24 05/01/24 Range/Units 05:09 11:39 Sodium 135 L (137-145) mmol/L Chloride 108 H (98-107) mmol/L BUN 42 H (7-17) mg/dL Glucose 168 H (74-99) mg/dL POC Glucose (mg/dL) 198 H (70-110) mg/dL Calcium 8.3 L (8.4-10.2) mg/dL Microbiology - Last 24 Hours (Table) 04/25/24 15:21 Blood Culture - Final Blood Assessment and Plan Plan: Assessment: 1. Acute kidney injury secondary to hemodynamic ATN. Renal function better. Creatinine 0.93. Unknown baseline renal function. UA fairly benign. No hydronephrosis noted on kidney ultrasound. 2. A-fib with RVR status post amiodarone drip. Now on oral amiodarone and Lopressor. 3. Perforated duodenal ulcer status post exploratory laparotomy with modified G raham patch April 09, 2024 with reexploration on April 12, 2024. Surgery following. 4. Metabolic acidosis secondary to acute kidney injury. Stable. 5. Hypophosphatemia from poor intake. Replaced. Improved. 6. Acute hypoxic respiratory failure. Now on nasal cannula. 7. Volume overload. Improved with diuresis. 8. Hypokalemia from diuresis. Resolved. Plan: Maintain TPN per surgery. Continue to monitor renal function and urine output. Avoid nephrotoxins. EGD pending. Hospice being considered.
--- NOTE | 2024-05-01 12:44 | P.PCN ---
Date of Procedure: 05/01/24 Procedure(s) Performed: Preoperative Dx: Gastric outlet obstruction Postoperative Dx: Distended stomach, moderate-sized hiatal hernia, anastomosis patent Procedure: EGD Anesthesia: Sedation Endoscopist: Dr. Valencia Specimens: None Endoscopic Procedure: The patient was on the endoscopy table in the left dec ubitus position. The Olympus gastroscope was inserted into the oropharynx and passed under direct visualization to the proximal stomach. Patient had a moderate to large hiatal hernia. Approximately the top 20 to 30% of the stomach was above the diaphragm. A large amount of bile-stained gastric contents were noted. This was evacuated. The scope was advanced into the body of the stomach where additional fluid was evacuated. I would estimate 3 to 400 cc of gastric bile-stained fluid was evacuated. The anastomosis was visualized. This appeared widely patent. There was no evidence of bleeding or narrowing. What I could visualize of the distal staple line appeared normal as well. The scope was advanced next into the Myles limb down approximately 10 to 20 cm. I could not visualize any obstruction. I believe we were passed our jejunojejunostomy but it was difficult to say with certainty. The scope was withdrawn. The esophagus had some mild esophagitis present. No narrowing of the esophagus was seen. The patient was then taken back to the floor after cleared by anesthesia. Recommendations: Findings discussed with the patient's power of attorney lawyer Keerthi. Unfortunately no obvious easy solution remains moving forward. We did discuss the options of reexploration to evaluate the Myles limb for a kink or blockage however given the recent upper GI findings and today's EGD findings I do not believe that would be very helpful. Also discussed the options of gastrojejunostomy tube placement where gastric port would be placed to suction and jejunal port would be used for feedings. Patient is already said she does not want anything significant done at this time. I think hospice is the most reasonable option. Would allow comfort feedings with hospice. Certainly she would be at high risk for aspiration which could result in fatality however there is a possibility that her gastric emptying would improve gradually to the point that she could be removed off of hospice. Will have social work and discharge planning further discussed this with Keerthi today so further decisions can be made.
[2024-05-01 16:27] LABS: Glucose,Whole Blood 165 mg/dL (70-110)
--- NOTE | 2024-05-01 17:56 | P.PN ---
Subjective Progress Note Date: 05/01/24 Principal diagnosis: Reason for follow-up is perforated duodenal ulcer/peritonitis Patient is a 88-year-old female presenting to the hospital abdominal pain diagnosed with the pneumoperitoneum secondary to the perforated jejunal ulcer status post laparotomy and modified Lee patch.Patient is status post reexploration with Billroth II gastrectomy with Myles-en-Y reconstruction completed on 04/12/2024, patient did have a EGD done on 05/01/2024 with evidence of moderate hiatal hernia distended stomach anastomosis was patent On today's evaluation that is 05/01/2024,the patient denies any fever or any chills, patient is breathing comfortably 2 L current oxygen, the patient denies chest pain shortness of breath and no significant cough, patient denies worsening abdominal pain some nausea but no vomiting. Patient did have a creatinine 0.93 Objective - Vital Signs Vital signs: Vital Signs Temp 98.0 F 05/01/24 06:58 Pulse 68 05/01/24 09:38 Resp 20 05/01/24 06:58 BP 151/71 05/01/24 06:58 Pulse Ox 100 05/01/24 09:29 FiO2 70 04/18/24 14:00 Intake & Output 04/30/24 05/01/24 05/01/24 18:59 06:59 18:59 Intake Total 948.75 10 Output Total 1440 2045 Balance -1440 -1096.25 10 Weight 51 kg Intake: IV 10 Intake, IV Titration 948.75 Amount Mvi, Adult No.4 with Vit 948.75 K 10 ml Trace (Conc-1Ml/ Dose) 1 ml Sodium Acetate 50 meq Calcium Gluconate 1 gm Magnesium Sulfate gm 1 gm Sodium Phosphate 9 mmol Potassium Chloride 10 meq In Amino Acid 5%- D15w 1,000 ml @ 75 mls/hr IV .BY DURATION [facility] Rx#: [id number] Output: Drainage 40 45 Lower Left Abdomen 40 40 Medial Abdomen 0 5 Urine 1400 2000 Other: Voiding Method Indwelling Catheter Indwelling Catheter Indwelling Catheter # Bowel Movements 1 ABP, PAP, CO, CI - Last Documented Arterial Blood Pressure 90/59 - Exam GENERAL DESCRIPTION: An elderly female lying in bed in no distress RESPIRATORY SYSTEM: Unlabored breathing , decreased breath sounds at bases HEART: S1 S2 regular rate and rhythm , ABDOMEN: Soft , mild tenderness EXTREMITIES: No edema feet - Labs CBC & Chem 7: 04/29/24 05:36 05/01/24 05:09 Labs: Abnormal Lab Results - Last 24 Hours (Table) 04/30/24 05/01/24 05/01/24 Range/Units 17:06 00:41 03:11 Sodium (137-145) mmol/L Chloride (98-107) mmol/L BUN (7-17) mg/dL Glucose (74-99) mg/dL POC Glucose (mg/dL) 120 H 173 H 133 H (70-110) mg/dL Calcium (8.4-10.2) mg/dL 05/01/24 05/01/24 Range/Units 05:09 11:39 Sodium 135 L (137-145) mmol/L Chloride 108 H (98-107) mmol/L BUN 42 H (7-17) mg/dL Glucose 168 H (74-99) mg/dL POC Glucose (mg/dL) 198 H (70-110) mg/dL Calcium 8.3 L (8.4-10.2) mg/dL Microbiology - Last 24 Hours (Table) 04/25/24 15:21 Blood Culture - Final Blood Assessment and Plan (1) Peritonitis Current Visit: Yes Status: Acute Code(s): K65.9 - PERITONITIS, UNSPECIFIED SNOMED Code(s): 25946237 (2) Leukocytosis Current Visit: Yes Status: Acute Code(s): D72.829 - ELEVATED WHITE BLOOD CELL COUNT, UNSPECIFIED SNOMED Code(s): 073337563 (3) Perforated duodenal ulcer Current Visit: Yes Status: Acute Code(s): K26.5 - CHRONIC OR UNSPECIFIED DU ODENAL ULCER WITH PERFORATION SNOMED Code(s): 71767458 Plan: 1patient presented to hospital with abdominal pain constipation has been diagnosed with the pneumoperitoneum secondary to perforated duodenal ulcer status post laparotomy and repair of the perforated jejunal ulcer we will need to cover for gram-negative and yeast. 2patient did have upper GI that was suspicious for leak patient is status post reexploration with Billroth II gastrectomy with Myles-en-Y reconstruction along with abdominal cultures which are so far negative 3-patient is afebrile and the patient white count has normalized, 4patient did have EGD completed today mention patent anastomosis, patient to continue Zosyn and Eraxis while inpatient and monitor clinical course closely Dictation was produced using [employer] dictation software. please excuse any grammatical, word or spelling errors. Time with Patient: Less than 30
[2024-05-01 18:00] LABS: Glucose,Whole Blood 178 mg/dL (70-110)
[2024-05-02 00:14] LABS: Glucose,Whole Blood 166 mg/dL (70-110)
[2024-05-02 01:25] LABS: Glucose,Whole Blood 194 mg/dL (70-110)
[2024-05-02 06:05] LABS: Ionized Calcium 4.8 mg/dL (4.5-5.3)
[2024-05-02 06:07] LABS: ALT 27 U/L (4-34); AST 35 U/L (14-36); African American GFR (CKD) 64 (>60 ml/min/1.73 sqM); Albumin 2.3 g/dL (3.5-5.0); Albumin/Globulin Ratio 0.9; Alkaline Phosphatase 123 U/L (38-126); Anion Gap 6 mmol/L; Blood Urea Nitrogen 36 mg/dL (7-17); Calcium 8.1 mg/dL (8.4-10.2); Carbon Dioxide 22 mmol/L (22-30); Chloride 105 mmol/L (98-107); Globulin 2.7 g/dL; Glucose 160 mg/dL (74-99); Non-African American GFR(CKD) 55 (>60 ml/min/1.73 sqM); Phosphorus 2.9 mg/dL (2.5-4.5); Potassium 3.8 mmol/L (3.5-5.1); Sodium 133 mmol/L (137-145); Total Bilirubin 0.4 mg/dL (0.2-1.3)
[2024-05-02 06:10] LABS: Glucose,Whole Blood 190 mg/dL (70-110)
--- NOTE | 2024-05-02 08:22 | P.PN ---
Subjective Progress Note Date: 05/02/24 This is an 80-year-old female with a history of a recent fall about 2 weeks ago who was brought into the emergency department with complaints of weakness and poor oral intake. Patient had an exploratory laparotomy and was found to have a perforated duodenal ulcer with a Lee patch placed. She remains in ICU. She is alert and oriented. She is still significantly weak. 04/11/2024 Patient seen and evaluated sitting in chair at bedside this morning. Yesterday had a salvador catheter placed by urology. Patient reports she is very sore today. 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 Valencia. Patient tolerated well. She remains on mechanical ventilation. 04/17/2024 Patient seen this morning laying in bed comfortably. She remains off of mechanical ventilation. She is still NPO and is on TPN. She reports pain is controlled. 04/18/2024 Patient seen this morning laying in bed with BiPAP on. She does report a little more pain today. She still remains on TPN, however a clear liquid diet has been ordered. 04/24/2024 Patient seen and evaluated this morning sitting up in chair at bedside. She remains on 2 L of oxygen via nasal cannula. She remains on TPN and a full liquid diet. Over the weekend hemoglobin dropped to 6.5 and patient received 1 unit of packed red blood cells. Repeat hemoglobin yesterday was 9.6. Labs pending for today. Patient is still quite weak and does not have much of an appetite. Nursing staff does note patient continues to have liquid black stool and is coughing up black and harris sputum. 04/25/2024 Patient seen and evaluated laying in bed this morning. Salvador was removed yesterday and patient has had high PVR's and patient has been more anxious. Oralia sing waiting to hear back from urology. Hemoglobin stable yesterday, labs for today not back at time of dictation. Surgeon advanced patient's diet yesterday. Vitals are stable. Nurse reports patient is still having black stool. 04/27/2024 Patient seen and evaluated laying in bed this morning with sitter present. She is currently NPO and remains on TPN. Hemoglobin yesterday was 7.7, labs for tod ay not back at time of dictation. Patient does appear more fatigued today. Salvador catheter in place. 05/01/2024 Patient seen and evaluated laying in bed this morning. Hospice was consulted over the weekend and patient and her friend are deciding the best option for her. EGD with possible dilation planned for this morning. Patient remains NPO. She is more fatigued today. 05/02/2024 Patient seen and evaluated laying in bed this morning. EGD completed yesterday. Plan is likely for hospice. Per nursing staff, hospice will be in again today to talk more with the patient. Patient denies any pain. She is still NPO, at high risk for aspiration. Denies any appetite. Objective - Vital Signs Vital signs: Vital Signs Temp 98.1 F 05/02/24 00:33 Pulse 68 05/02/24 00:33 Resp 17 05/02/24 00:33 BP 128/64 05/02/24 00:33 Pulse Ox 98 05/02/24 00:33 FiO2 70 04/18/24 14:00 Intake & Output 05/01/24 05/02/24 05/02/24 18:59 06:59 18:59 Intake Total 816.25 Output Total 931 540 Balance -114.75 -540 Weight 51 kg 56 kg Intake: IV 10 Intake, IV Titration 806.25 Amount Mvi, Adult No.4 with Vit 806.25 K 10 ml Trace (Conc-1Ml/ Dose) 1 ml Sodium Acetate 50 meq Calcium Gluconate 1 gm Magnesium Sulfate gm 1 gm Sodium Phosphate 9 mmol Potassium Chloride 10 meq In Amino Acid 5%- D15w 1,000 ml @ 75 mls/hr IV .BY DURATION [facility] Rx#: [id number] Output: Drainage 56 40 Lower Left Abdomen 56 40 Urine 875 500 Other: Voiding Method Indwelling Catheter Indwelling Catheter # Bowel Movements 1 ABP, PAP, CO, CI - Last Documented Arterial Blood Pressure 90/59 - Constitutional General appearance: Present: cooperative, no acute distress - EENT Eyes: Present: PERRLA - Neck Neck: Present: normal ROM. Absent: lymphadenopathy, rigidity - Respiratory Respiratory: bilateral: CTA - Cardiovascular Heart sounds: normal: S1, S2 - Gastrointestinal General gastrointestinal: Present: soft - Integumentary Integumentary: Present: normal, normal turgor - Musculoskeletal Musculoskeletal: Present: generalized weakness - Psychiatric Psychiatric: Present: A&O x's 3 - Labs CBC & Chem 7: 04/29/24 05:36 05/02/24 05:29 Labs: Abnormal Lab Results - Last 24 Hours (Table) 05/01/24 05/01/24 05/01/24 Range/Units 11:39 16:25 17:58 Sodium (137-145) mmol/L BUN (7-17) mg/dL Glucose (74-99) mg/dL POC Glucose (mg/dL) 198 H 165 H 178 H (70-110) mg/dL Calcium (8.4-10.2) mg/dL Total Protein (6.3-8.2) g/dL Albumin (3.5-5.0) g/dL 05/02/24 05/02/24 05/02/24 Range/Units 00:11 01:23 05:29 Sodium 133 L (137-145) mmol/L BUN 36 H (7-17) mg/dL Glucose 160 H (74-99) mg/dL POC Glucose (mg/dL) 166 H 194 H (70-110) mg/dL Calcium 8.1 L (8.4-10.2) mg/dL Total Protein 5.0 L (6.3-8.2) g/dL Albumin 2.3 L (3.5-5.0) g/dL 05/02/24 Range/Units 06:05 Sodium (137-145) mmol/L BUN (7-17) mg/dL Glucose (74-99) mg/dL POC Glucose (mg/dL) 190 H (70-110) mg/dL Calcium (8.4-10.2) mg/dL Total Protein (6.3-8.2) g/dL Albumin (3.5-5.0) g/dL Assessment and Plan (1) Dehydration Current Visit: Yes Status: Acute Code(s): E86.0 - DEHYDRATION SNOMED Code(s): 56859277 (2) Acute kidney injury Current Visit: Yes Status: Acute Code(s): N17.9 - ACUTE KIDNEY FAILURE, UNSPECIFIED SNOMED Code(s): 54753244 (3) 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
[2024-05-02 12:33] LABS: Glucose,Whole Blood 197 mg/dL (70-110)
--- NOTE | 2024-05-02 13:24 | P.PN ---
Subjective Patient is seen in follow-up for acute kidney injury. Receiving TPN. Renal function at baseline. No active complaints. Guardian present at bedside. Vital signs are stable. General: No acute distress. HEENT: Head exam is unremarkable. On nasal cannula. LUNGS: No audible rhonchi or wheezes. HEART: Rate and Rhythm are regular. ABDOMEN: Nontender. SHRUTHI drain noted. EXTREMITITES: Trace edema. Objective - Vital Signs Vital signs: Vital Signs Temp 99.1 F 05/02/24 06:55 Pulse 80 05/02/24 06:55 Resp 18 05/02/24 06:55 BP 150/61 05/02/24 06:55 Pulse Ox 97 05/02/24 06:55 FiO2 70 04/18/24 14:00 Intake & Output 05/01/24 05/02/24 05/02/24 18:59 06:59 18:59 Intake Total 816.25 1045 Output Total 931 540 576 Balance -114.75 505 -576 Weight 51 kg 56 kg Intake: IV 10 Intake, IV Titration 806.25 1045 Amount Mvi, Adult No.4 with Vit 806.25 K 10 ml Trace (Conc-1Ml/ Dose) 1 ml Sodium Acetate 50 meq Calcium Gluconate 1 gm Magnesium Sulfate gm 1 gm Sodium Phosphate 9 mmol Potassium Chloride 10 meq In Amino Acid 5%- D15w 1,000 ml @ 75 mls/hr IV .BY DURATION [facility] Rx#: [id number] Sodium Acetate 50 meq 1045 Calcium Gluconate 1 gm Magnesium Sulfate gm 1 gm Sodium Phosphate 9 mmol Potassium Chloride 10 meq In Amino Acid 5%-D15w 1, 000 ml @ 75 mls/hr IV .BY DURATION [facility] Rx#: [id number] Output: Drainage 56 40 Lower Left Abdomen 56 40 Urine 875 500 576 Other: Voiding Method Indwelling Catheter Indwelling Catheter Indwelling Catheter # Voids 1 # Bowel Movements 1 1 ABP, PAP, CO, CI - Last Documented Arterial Blood Pressure 90/59 - Labs CBC & Chem 7: 04/29/24 05:36 05/02/24 05:29 Labs: Abnormal Lab Results - Last 24 Hours (Table) 05/01/24 05/01/24 05/02/24 Range/Units 16:25 17:58 00:11 Sodium (137-145) mmol/L BUN (7-17) mg/dL Glucose (74-99) mg/dL POC Glucose (mg/dL) 165 H 178 H 166 H (70-110) mg/dL Calcium (8.4-10.2) mg/dL Total Protein (6.3-8.2) g/dL Albumin (3.5-5.0) g/dL 05/02/24 05/02/24 05/02/24 Range/Units 01:23 05:29 06:05 Sodium 133 L (137-145) mmol/L BUN 36 H (7-17) mg/dL Glucose 160 H (74-99) mg/dL POC Glucose (mg/dL) 194 H 190 H (70-110) mg/dL Calcium 8.1 L (8.4-10.2) mg/dL Total Protein 5.0 L (6.3-8.2) g/dL Albumin 2.3 L (3.5-5.0) g/dL 05/02/24 Range/Units 12:29 Sodium (137-145) mmol/L BUN (7-17) mg/dL Glucose (74-99) mg/dL POC Glucose (mg/dL) 197 H (70-110) mg/dL Calcium (8.4-10.2) mg/dL Total Protein (6.3-8.2) g/dL Albumin (3.5-5.0) g/dL Assessment and Plan Plan: Assessment: 1. Acute kidney injury secondary to hemodynamic ATN. Renal function better. Creatinine 0.93. Unknown baseline renal function. UA fairly benign. No hydronephrosis noted on kidney ultrasound. 2. A-fib with RVR status post amiodarone drip. Now on oral amiodarone and Lopressor. 3. Perforated duodenal ulcer status post exploratory laparotomy with modified Lee patch April 09, 2024 with reexploration on April 12, 2024. Surgery following. EGD done May 01, 2024 showed distended stomach with moderate sized hiatal hernia, anastomosis patent. 4. Metabolic acidosis secondary to acute kidney injury. Stable. 5. Hypophosphatemia from poor intake. Replaced. Improved. 6. Acute hypoxic respiratory failure. Now on nasal cannula. 7. Volume overload. Improved with diuresis. 8. Hypokalemia from diuresis. Resolved. Plan: Maintain TPN per surgery. Continue to monitor renal function and urine output. Avoid nephrotoxins. Hospice meeting today. I will sign off. Please call with any questions or concerns.
--- NOTE | 2024-05-02 13:45 | P.PN ---
Subjective Progress Note Date: 05/02/24 This is an 88-year-old female, recent history of fall about 2 weeks ago, sustained bruising to her left ribs. Patient was brought in yesterday to the ER mostly with symptoms of weakness, failure to thrive, poor oral intake, and suspected dehydration. Patient was also complaining of cough and shortness of breath, no fever no chills, no nausea no vomiting. In addition the patient had no bowel movement for the last 4 days. Apparently the patient has been experiencing intermittent episodes of confusion for the last 1 year. Workup in the ER included a CT of the abdomen and pelvis, it showed pneumoperitoneum and free fluid. Patient was felt that she has ruptured viscus, she was seen by surgery and she underwent exploratory laparotomy for her pneumoperitoneum, and she was found to have perforated duodenal ulcer. Patient had modified Lee patch and postoperatively the patient was extubated nonetheless she was admitted to the ICU, and this consult was initiated. I saw the patient in the ICU this morning, she is on 4 L nasal cannula, does not seem to be in any distress. She is already on Zosyn, and I added Diflucan. She is on LR at 125 cc/h. Her WBC count is 28.6, electrolytes are normal hemoglobin is 10.7 BUN is 97 creatinine down to 2.45 from 3.27 yesterday. Progress note dated April 10, 2024. 88-year-old female seen yesterday in consultation. She was admitted on April 08, with confusion and weakness. The patient had a repair of a perforated duodenal ulcer on April 09. Today is postop day #1. She is currently seen today in room 261. She is currently on 6 L of oxygen by nasal cannula. She has an NG tube in place. She is getting lactated Ringer's at 125 cc an hour. For atrial fibrillation with a rapid ventricular response, she was started on Cardizem drip at 5 mg an hour, and amiodarone 0.5 mg/min. No new labs today other than a glucose of 154. The labs from yesterday are reviewed. White count was 28.6. Hemoglobin 10.7, platelet count was normal. BUN and creatinine were 97 and 2.45. Chest x-ray suggested bilateral pleural effusions. Progress note dated April 11, 2024. 88-year-old female seen today in room 261. The patient was admitted on April 08, with confusion and weakness. The patient was discovered to have a perforated duodenal ulcer, and had a surgical repair performed on April 09. Today is postop day #2. The patient is currently without distress. She is on room air. NG tube remains in place. She is getting lactated Ringer's at 75 cc an hour. Because of atrial fibrillation and RVR, she continues on amiodarone 0.5 mg/min, and Cardizem at 5 mg an hour. Lab data includes a white count 34.6, hemoglobin 9.1, hematocrit 36.6, and a platelet count 442,000. Sodium 143, potassium 4.1, chlorides 113, CO2 23, BUN 71, creatinine 1.64. Glucose is 134. Albumin is 2.3. Blood cultures are currently negative. No chest x-ray today has been ordered. Progress note dated April 12, 2024. This is an 88-year-old female who is seen in room 261. The patient was admitted back on April 08, with confusion and weakness. She was discovered to have a perforated duodenal ulcer, and had surgical repair performed on April 09. Today is postoperative day #3. The patient is going to have a upper GI study today. She is getting lactated Ringer's at 75 cc an hour, 3 L of oxygen by nasal cannula, Cardizem at 5 mg an hour, and amiodarone at 0.5 mg/min. White count was 37.4, hemoglobin 11.6, hematocrit 38.5, and platelet count was normal. Sodium 145, potassium 3.2, chloride 115, CO2 24, BUN 52, creatinine 1.26. Glucose 123. Calcium 8.2. BUN 2.2. Blood cultures are currently negative. The patient's chest x-ray is stable, with some basilar atelectasis on the right. Upper GI study showed a leak, at the site of patch placement, in the duodenal bulb. Progress note dated April 13, 2024. 88-year-old female seen today in room 261. The patient is postop day #1, status post Billroth II gastrectomy, and Myles-en-Y reconstruction. The patient is currently on the ventilator. Ventilator settings include volume assist-control, rate 16, tidal volume 350, FiO2 40%, PEEP of 5. Blood gases show pO2 128, pCO2 34, pH is 7.43. The blood gases were done on 50% FiO2. The patient is on lactated Ringer's at 75 cc an hour, amiodarone 0.5 mg/min, Cardizem at 5 mg/h, and propofol, is restarted at a low rate. Current labs include a white count 34.8, hemoglobin 9.5, hematocrit 32.2, and a platelet count of 325,000. Sodium 141, potassium 4, chloride 114, CO2 21, BUN 48, creatinine 1.51. Glucose is 133. Calcium is 7. Blood cultures are negative. Chest x-ray shows in addition to endotracheal tube, and central venous line, blunting of the costophrenic angles. Progress note dated April 14, 2024. 88-year-old female seen today in room 261. She is postop day #2, status post Billroth II gastrectomy and Myles-en-Y reconstruction. The patient is on the ventilator. She was maintained on the ventilator overnight. Currently, the patient is on volume assist-control, rate 16, tidal volume 350, FiO2 30%, PEEP of 5. Blood gases show pO2 of 148, pCO2 33, pH is 7.42. Blood gases were done on 40%. The patient continues on amiodarone at 0.5 mg/min, lactated Ringer's at 75 cc an hour, propofol at 35 mcg/kg/min, and TPN at 30 cc an hour, to be increased to 55 cc an hour. Current white count is 25.2, hemoglobin 9.5, hematocrit 35.5, platelet count 362,000. Sodium 142, potassium 3.3, chlorides 112, CO2 25, BUN 50, creatinine 1.83. Albumin level was 1.9. Chest x-ray is largely unchanged. Progress note dated April 15, 2024. The patient is seen again in room 261. The patient was successfully extubated yesterday, April 14. She is currently on room air. She is receiving a saline IV at KVO, and TPN at 40 cc an hour. Current labs include a white count 18.1, hemoglobin 8.9, hematocrit 27.4, and a platelet count of 334,000. Sodium 140, potassium 3.9, chlorides 114, CO2 23, BUN 46, and creatinine 1.36. Glucose is 170. Calcium is 7.2. Phosphorus is 1.9. Magnesium is 2.0. Progress note dated April 16, 2024. The patient is seen today in room 261. She is currently on room air. She continues on amiodarone at 0.5 mg/min. She is getting TPN at 40 cc an hour, and saline at KVO. She does continue on Zosyn. All her cultures are thus far negative. She has no specific complaints today. According to the nurse, she is a bit anxious. Current labs include a sodium 139, potassium 3.9, chlorides 114, CO2 23, BUN 35, and creatinine 1.15. Glucose is 178. Calcium 7.5, phosphorus 2.3, and magnesium is normal. Culture data is negative. Venous Doppler yesterday, shows a superficial venous thrombosis involving the cephalic vein, of the left upper extremity. On today's evaluation of 04/17/2024, the patient is being seen for a follow-up. The patient is recovering from her abdominal surgery. The patient undergone exploratory laparotomy and repair of a perforated duodenal ulcer and she is postop day #8 subsequent the patient required a bit to gastrectomy and the patient is this morning, the patient has awake and alert and she is currently on med oxygen. She is in normal sinus rhythm. She is on TPN which is running at a rate of 40 cc an hour. She remains on IV Zosyn. She is using the incentive spirometer. The patient has 2 SHRUTHI drains. The medial drain has drained approximately 180 cc of serous material and the right lower abdominal drain has put out approximately 10 cc. She has had paroxysmal atrial fibrillation. She remains on amiodarone running at 0.5 mg/min. The white cell count is at 17 with a hemoglobin 9.1 and a platelet count of 431. BUN is 28 with a creatinine of 1. Electrolytes are normal limits. LFTs are normal. Blood sugar is at 183. The patient remains on empiric antibiotic coverage with IV Zosyn. She is being given oral diet today. Should be able also to take her oral medication. Surgical abdominal wound scar is dry clean and intact. He is alert and awake and communicating. 04/18/2024, the patient is on BiPAP. The patient decompensated overnight and became hypoxic. Chest x-ray was done and the patient was found to have large bilateral pleural effusion the patient was given Lasix. Noted the patient was on room air oxygen prior to her being transferred to the medical floor. At that point, the patient was placed on a BiPAP. She was started on the Lasix. This morning, she remains on BiPAP at a pressure of over 5 cm of water and FiO2 was brought up to 70%. No chest pain. She is awake and alert and she is producing adequate amount of urine output. The white cell count is currently up to On her blood work 38.9 with a hemoglobin of 9 and a platelet count of 443. BUN is 32 with a creatinine of 1.2 and sodium levels of 136. I repeated her blood work again and her white cell count is up to 40 with a hemoglobin of 8.8. The patient got transferred to the intensive care unit. Immediately, I performed an ultrasound of the chest that showed bilateral pleural effusion and thoracentesis of the right lung was done, pending follow-up chest x-ray and a total of 600 cc of pleural fluid aspirated from the right lung. Hemodynamically stable. No hypotension. Remains on TPN. Remains on IV Zosyn. Remains on Lasix 20 mg IV every 12 hours. Awake and alert and communicating. On today's evaluation of 04/19/2024, the patient seems to be more comfortable comp ared to yesterday. The patient is currently on 2 L of oxygen by nasal cannula. The patient was at the pulmonary edema and developed bilateral pleural effusions. The patient had a thoracentesis yesterday without any complication. A total of 650 cc of pleural fluid was aspirated from the right lung. A repeat chest x-ray from today showing improvement in the volume status. There is still increased interstitial markings bilaterally and small bilateral pleural effusions in the lung bases bilaterally. The patient remains on IV Lasix. The patient is producing adequate amount of urine output. Nevertheless, the fluid balance over the past 24 hours has been +500 cc. The patient remains on TPN for nutritional support. The patient is receiving TPN at a rate of 60 cc an hour. The patient is also on a combination of Zosyn and Eraxis, and vancomycin.. Oxygenation is improved and the patient is currently off the BiPAP and the patient currently is on 3 L of oxygen by nasal cannula. BUN is 40 with a creatinine of 1.2. Sodium level is 137, white cell count is improved is currently down to 21 with a hemoglobin of 7.5 and a platelet count of 393. No other significant events otherwise and the patient's condition is slightly more stable compared to yesterday. She is awake and alert and communicating. On 04/20/2024, the patient is being seen for a follow-up. The patient is doing well on 3 L of oxygen by nasal cannula. No significant respiratory distress. A follow-up chest x-ray was done today and showed improvement in volume status with small bilateral pleural effusion and some increased interstitial markings bilaterally. Nevertheless, the patient has been diuresed adequately and the patient is currently in negative fluid balance and the patient will be switched to oral Lasix. IV Lasix will be discontinued and the patient has been switched to 40 mg of Lasix on a daily basis. Remains on TPN for nutritional support. She did have a bloody bowel movement, unsure if it is melanotic. This will be monitored as the patient hemoglobin has remeasured at 8.7 on today's evaluation. The white cell count is 15.8. BUN is 48 with a creatinine 1.2 and sodium levels at 135 and a potassium level of 3.1. LFTs are all stable. Antibiotic coverage remains unchanged and the patient remains on a combination of Eraxis and Zosyn. Surgical wound site is dry clean and intact. Renal function remained stable On 04/21/2024, seen the patient for a follow-up. She is currently on room air oxygen. She is having some coffee-ground material in her mouth and I suspect ongoing GI bleed. Note that the patient's hemoglobin had dropped down to 6.6 and the patient does get transfused with packed RBC and a subsequent hemoglobin is up to 8.7 and currently is at 8.1. No acute evidence of any active upper GI bleeding. The patient is awake and alert and communicating. She remains on TPN for nutritional support. Surgical scars are dry clean and intact. Antibiotic coverage with IV Zosyn and Eraxis per IDs recommendations. As mentioned, the patient is postthoracentesis. The patient is currently on diuretics and the patient receiving Lasix 40 mg p.o. daily.. The patient is on room air oxygen. No other significant events overnight. 04/22/2024, the patient is suspected to have some ongoing low-grade GI bleed. She is still having some black stools and coughing out some coffee-ground material. Hemoglobin is at 7.1. Noted that hemoglobin has dropped slightly compared to yesterday is down from 8.1. Respiratory status is stable. She is on 2 L of O2 nasal cannula. Pulse ox 96%. Platelet count is at 397. Remains appropriate for oxygen support. Creatinine is stable at 1.2. BUN is 52 with a sodium of 135. No other significant events overnight. Remains alert and awake and communicating. No confusion. No altered mentation. 04/23/2024, the patient had another bloody neurologic bowel movement that she is coughing out coffee-ground material. I suspect ongoing GI bleed. Noted the repeat hemoglobin from yesterday was at 6.5. The patient was given a unit of packed RBC and the hemoglobin is currently at 9. Platelet counts are stable. Abdominal exam is stable. Creatinine is at 1.2 with a BUN of 53. Sodium is at 135. Repeat hemoglobin will be obtained. She remains on TPN for nutritional support. Overall respiratory status is stable. The patient is currently on 2 L of oxygen by nasal cannula with a pulse ox of 94%. General surgery is on the case. 2023 in follow-up on the regular medical floor. She is currently sitting up in a chair. Awake and alert in no acute distress. She is maintaining O2 saturations in the 90s on 2 L/min per nasal cannula. She has been afebrile. Hemodynamically stable. White count 11.6. Hemoglobin 9.7. Platelets 495. Sodium 136. Potassium 4.4. Bicarb 25. BUN 44. Creatinine 1.03. Glucose 163. Vancomycin trough 13.9. She is status post 2 units of packed red blood cells this admission. She remains on TPN for nutritional support at 60 MLS per hour. She remains on Zosyn and Eraxis. The patient is seen today April 25, 2024 in follow-up on the regular medical floor. She is currently resting fairly comfortably in bed. Awake and alert in no acute distress. She is having issues with urinary retention and a Walters catheter needs to be replaced. She is maintaining good O2 saturations in the 90s on 2 L/min per nasal cannula. She is being nourished with TPN currently at 60 MLS per hour. She remains on Zosyn and Eraxis. Continued on bronchodilators. Acute abdominal x-ray revealed no radiographic evidence for acute abdominal process. Bibasilar small pleural effusions. White count 11.5. Hemoglobin 9.5. Platelets 490. Sodium 133. Potassium 4.1. Bicarb 24. BUN 40. Creatinine 1.10. Glucose 165. Urinalysis clean. The patient is seen today April 26, 2024 in follow-up on the regular medical floor. She is currently resting in bed. Awake and alert in no acute distress. Maintaining O2 saturations in the 90s on 2 L/min per nasal cannula. White count 15.2. Hemoglobin 7.7. Platelets 426. Sodium 134. Potassium 3.8. Bicarb 27. BUN 42. Creatinine 1.27. Glucose 164. She remains on Zosyn and Eraxis. Continued on bronchodilators. Currently in a -2 L balance. Being nourished with TPN and lipids. The patient is seen today April 27, 2024 in follow-up on the regular medical floor. She is awake and alert in no acute distress. Resting flat in bed. Denies any worsening shortness of breath, cough or congestion. She is maintaining O2 saturations in the 90s on 2 L/min per nasal cannula. White count 11.0. Hemoglobin 8.2. Platelets 496. Sodium 136. Potassium 4.3. Bicarb 25. BUN 40. Creatinine 1.24. Glucose 171. She did have a PICC line placed yesterday. Triple-lumen catheter has been removed. She remains on TPN and lipids for nutrition. Tolerating a full liquid diet. Continued on Zosyn and Eraxis. Remains on bronchodilators. The patient is seen today April 28, 2024 in follow-up on the regular medical floor. She is resting comfortably in bed. Awake and alert in no acute distress. She is maintaining O2 saturations in the 90s on 3 L/min per nasal c annula. She remains afebrile. Hemodynamically stable. She is going for an upper GI series this morning. Currently nothing by mouth. Blood and pleural fluid cultures revealed no growth. White count 10.6. Hemoglobin 8.7. Platelets 576. Sodium 134. Potassium 5.0. Bicarb 24. BUN 38. Creatinine 1.13. Glucose 153. She remains on TPN and lipids. Continued on antibiotics in the form of Zosyn. Remains on Eraxis. Continued on bronchodilators. The patient is seen today April 29, 2024 in follow-up on the regular medical floor. She is resting in bed. Awake and alert in no acute distress. She is maintaining good O2 saturations in the 90s on 3 L/min per nasal cannula. Afebrile. Hemodynamically stable. Upper GI series did reveal distention of the stomach with outlet obstruction at the duodenum. The anastomosis or free spill into the small bowel through the Myles-en-Y is not identified. No extravasation evident. KUB revealed no evidence of small bowel obstruction. White count 10.6. Hemoglobin 8.5. Platelets 582. Sodium 135. Potassium 5.2. Bicarb 23. BUN 35. Creatinine 1.12. Glucose 148. She remains on Eraxis and Zosyn. Remains on TPN and lipids. According to nursing staff there are no plans for surgical intervention at this point. Hospice has been recommended. The patient is seen today April 30, 2024 in follow-up on the regular medical floor. She is awake and alert in no acute distress. Denies any significant abdominal pain currently. She is resting in bed. She is maintaining good O2 saturations in the 90s on 3 L/min per nasal cannula. She is continued on Zosyn and Eraxis. Remains on bronchodilators. Remains on TPN and lipids. Creatinine 0.97. Glucose 138. The patient is seen today May 01, 2024 in follow-up on the regular medical floor. She is resting fairly comfortably in bed. Awake and alert in no acute distress. Maintaining good O2 saturations in the 90s on 3 L/min per nasal cannula. She has been afebrile. Hemodynamically stable. She remains on Zosyn and Eraxis. She is being nourished with TPN and lipids. The plan may be for EGD and possible dilatation of the gastric outlet obstruction. Sodium 135. Potassium 4.6. Bicarb 22. BUN 42. Creatinine 0.93. Glucose 163. The patient is seen today May 02, 2024 in follow-up on the regular medical floor. She is currently awake and alert in no acute distress. Maintaining O2 saturations in the 90s on 3 L/min per nasal cannula. Afebrile, hemodynamically stable. Sodium 133. Potassium 3.8. Bicarb 22. BUN 36. Creatinine 0.93. Glucose 160. She remains on TPN and lipids. Remains on Zosyn and Eraxis. There is plans for a hospice meeting possibly today. Objective - Vital Signs Vital signs: Vital Signs Temp 99.1 F 05/02/24 06:55 Pulse 80 05/02/24 06:55 Resp 18 05/02/24 06:55 BP 150/61 05/02/24 06:55 Pulse Ox 97 05/02/24 06:55 FiO2 70 04/18/24 14:00 Intake & Output 05/01/24 05/02/24 05/02/24 18:59 06:59 18:59 Intake Total 816.25 1045 Output Total 931 540 576 Balance -114.75 505 -576 Weight 51 kg 56 kg Intake: IV 10 Intake, IV Titration 806.25 1045 Amount Mvi, Adult No.4 with Vit 806.25 K 10 ml Trace (Conc-1Ml/ Dose) 1 ml Sodium Acetate 50 meq Calcium Gluconate 1 gm Magnesium Sulfate gm 1 gm Sodium Phosphate 9 mmol Potassium Chloride 10 meq In Amino Acid 5%- D15w 1,000 ml @ 75 mls/hr IV .BY DURATION [facility] Rx#: [id number] Sodium Acetate 50 meq 1045 Calcium Gluconate 1 gm Magnesium Sulfate gm 1 gm Sodium Phosphate 9 mmol Potassium Chloride 10 meq In Amino Acid 5%-D15w 1, 000 ml @ 75 mls/hr IV .BY DURATION [facility] Rx#: [id number] Output: Drainage 56 40 Lower Left Abdomen 56 40 Urine 875 500 576 Other: Voiding Method Indwelling Catheter Indwelling Catheter Indwelling Catheter # Voids 1 # Bowel Movements 1 1 ABP, PAP, CO, CI - Last Documented Arterial Blood Pressure 90/59 - Exam GENERAL EXAM: Alert, very weak, frail 88-year-old female, on 3 L nasal cannula, in no acute distress. HEAD: Normocephalic. EYES: Normal reaction of pupils, equal size. NOSE: Clear with pink turbinates. THROAT: No erythema or exudates. NECK: No masses, no JVD. CHEST: No chest wall deformity. LUNGS: Equal air entry with no crackles, wheeze, rhonchi or dullness. CVS: S1 and S2 normal with no audible murmur, regular rhythm. ABDOMEN: Abdominal dressing dry and intact. SHRUTHI drains in place. No guarding or rigidity. SPINE: No scoliosis or deformity SKIN: No rashes CENTRAL NERVOUS SYSTEM: No focal deficits, tone is normal in all 4 extremities. EXTREMITIES: There is no peripheral edema. No clubbing, no cyanosis. Patricia pheral pulses are intact. - Labs CBC & Chem 7: 04/29/24 05:36 05/02/24 05:29 Labs: Abnormal Lab Results - Last 24 Hours (Table) 05/01/24 05/01/24 05/02/24 Range/Units 16:25 17:58 00:11 Sodium (137-145) mmol/L BUN (7-17) mg/dL Glucose (74-99) mg/dL POC Glucose (mg/dL) 165 H 178 H 166 H (70-110) mg/dL Calcium (8.4-10.2) mg/dL Total Protein (6.3-8.2) g/dL Albumin (3.5-5.0) g/dL 05/02/24 05/02/24 05/02/24 Range/Units 01:23 05:29 06:05 Sodium 133 L (137-145) mmol/L BUN 36 H (7-17) mg/dL Glucose 160 H (74-99) mg/dL POC Glucose (mg/dL) 194 H 190 H (70-110) mg/dL Calcium 8.1 L (8.4-10.2) mg/dL Total Protein 5.0 L (6.3-8.2) g/dL Albumin 2.3 L (3.5-5.0) g/dL 05/02/24 Range/Units 12:29 Sodium (137-145) mmol/L BUN (7-17) mg/dL Glucose (74-99) mg/dL POC Glucose (mg/dL) 197 H (70-110) mg/dL Calcium (8.4-10.2) mg/dL Total Protein (6.3-8.2) g/dL Albumin (3.5-5.0) g/dL Assessment and Plan Assessment: Acute hypoxic respiratory failure, recovered and the patient was extubated on 04/14/2024. The patient was on room air oxygen and the patient got transferred to the medical floor to be readmitted back to the ICU the patient was weaned off the BiPAP and the patient is currently is on 3 L nasal cannula Acute leukocytosis, rule out septic event. Currently on IV Zosyn and Eraxis. Improved. The white cell count is at 10.6 Acute on chronic anemia consider the possibility of an ongoing GI bleed as the patient is also coughing out some coffee-ground material. Status post 2 units of packed red blood cells. Current hemoglobin 8.5 Status post re-exploration on April 12, 2024 with Billroth II gastrectomy, and Myles-en-Y reconstruction. The patient remains on TPN and lipids for nutritional support. Upper GI series performed April 28, 2024 reveals a stomach distention and outlet obstruction at the duodenum. EGD May 01, 2024. No further plans for surgical intervention Status post exploratory laparotomy, April 09, 2024 repair of perforated duodenal ulcer, and application of a modified Lee patch. Upper GI series, showing leak, at the site of the modified Lee patch. Acute abdominal sepsis, secondary to above and the patient is currently on IV Zosyn and Eraxis. Abdominal series from 04/25/2024 revealed no acute abdominal process Acute atrial fibrillation, with rapid ventricular response. The cardiac rhythm is back to sinus, on oral amiodarone History of splenic hematoma, without rupture. The patient is currently on no anticoagulants Acute dehydration with acute kidney injury. Recovered and the patient renal function is normal Nonanion gap metabolic acidosis, recovered Hypovolemic hyponatremia, recovered Urinary retention requiring reinsertion of indwelling Walters catheter Poor functional performance based on the above-mentioned multiple comorbidities. Plan: The patient was seen and evaluated Labs and medications reviewed Treat down the FiO2 as tolerated Assure adequate pain control Being nourished with TPN and lipids Hospice is meeting with the patient today I have personally seen and examined the patient, performed the documentation and the assessment and plan as written. Number of minutes spent on the visit: 10.
--- NOTE | 2024-05-02 15:16 | P.PN ---
Subjective Progress Note Date: 05/02/24 CHIEF COMPLAINT: Perforated duodenal ulcer HISTORY OF PRESENT ILLNESS: Patient is status post exploratory laparotomy with modified Lee patch for perforated duodenal ulcer on 04/09/24. Upper GI had reported a leak and patient taken back to the OR. She is status post reexploration with Billroth II gastrectomy with Myles-en-Y reconstruction on 04/12/24. Patient is status post EGD that revealed distended stomach, moderate size hiatal hernia and anastomosis is patent. Patient lying in bed comfortably. Pain controlled. She does not report any nausea or vomiting. She is having bowel movements. She is n.p.o. and on TPN. Afebrile. PHYSICAL EXAM: VITAL SIGNS: Reviewed. ABDOMEN: Soft. Nondistended. Incisional dressing clean dry and intact. 2 SHRUTHI drains serous output ASSESSMENT: 1. Perforated duodenal ulcer 2. Slow gastric emptying on upper GI. Status post EGD revealing distended stomach, moderate size hiatal hernia and anastomosis is patent 3. Severe protein calorie malnutrition PLAN: -Patient and POA meeting with hospice today -Patient and POA have declined PEG tube -CODE STATUS DNR -Continue TPN for nutrition support -Keep patient n.p.o. for now -Continue IV antibiotics -Continue IV Protonix BID -Continue supportive care -DVT prophylaxis subcu heparin Physician Armature Bander note has been reviewed by physician. Signing provider agrees with the documented findings, assessment, and plan of care. I have personally seen and examined the patient, reviewed the [employer] /PAs history, exam and MDM and agree with the assessment and plan as written. Based on total visit time, I have performed more than 50% of the visit. As above: Patient more confused today. Mild shortness of breath. Tentative plans for hospice. Keep n.p.o. for now. Objective - Vital Signs Vital signs: Vital Signs Temp 98.2 F 05/02/24 13:34 Pulse 71 05/02/24 13:34 Resp 18 05/02/24 13:34 BP 139/57 05/02/24 13:34 Pulse Ox 98 05/02/24 13:34 FiO2 70 04/18/24 14:00 Intake & Output 05/01/24 05/02/24 05/02/24 18:59 06:59 18:59 Intake Total 816.25 1045 Output Total 931 540 576 Balance -114.75 505 -576 Weight 51 kg 56 kg Intake: IV 10 Intake, IV Titration 806.25 1045 Amount Mvi, Adult No.4 with Vit 806.25 K 10 ml Trace (Conc-1Ml/ Dose) 1 ml Sodium Acetate 50 meq Calcium Gluconate 1 gm Magnesium Sulfate gm 1 gm Sodium Phosphate 9 mmol Potassium Chloride 10 meq In Amino Acid 5%- D15w 1,000 ml @ 75 mls/hr IV .BY DURATION [facility] Rx#: [id number] Sodium Acetate 50 meq 1045 Calcium Gluconate 1 gm Magnesium Sulfate gm 1 gm Sodium Phosphate 9 mmol Potassium Chloride 10 meq In Amino Acid 5%-D15w 1, 000 ml @ 75 mls/hr IV .BY DURATION [facility] Rx#: [id number] Output: Drainage 56 40 Lower Left Abdomen 56 40 Urine 875 500 576 Other: Voiding Method Indwelling Catheter Indwelling Catheter Indwelling Catheter # Voids 1 # Bowel Movements 1 1 ABP, PAP, CO, CI - Last Documented Arterial Blood Pressure 90/59 - Labs CBC & Chem 7: 04/29/24 05:36 05/02/24 05:29 Labs: Abnormal Lab Results - Last 24 Hours (Table) 05/01/24 05/01/24 05/02/24 Range/Units 16:25 17:58 00:11 Sodium (137-145) mmol/L BUN (7-17) mg/dL Glucose (74-99) mg/dL POC Glucose (mg/dL) 165 H 178 H 166 H (70-110) mg/dL Calcium (8.4-10.2) mg/dL Total Protein (6.3-8.2) g/dL Albumin (3.5-5.0) g/dL 05/02/24 05/02/24 05/02/24 Range/Units 01:23 05:29 06:05 Sodium 133 L (137-145) mmol/L BUN 36 H (7-17) mg/dL Glucose 160 H (74-99) mg/dL POC Glucose (mg/dL) 194 H 190 H (70-110) mg/dL Calcium 8.1 L (8.4-10.2) mg/dL Total Protein 5.0 L (6.3-8.2) g/dL Albumin 2.3 L (3.5-5.0) g/dL 05/02/24 Range/Units 12:29 Sodium (137-145) mmol/L BUN (7-17) mg/dL Glucose (74-99) mg/dL POC Glucose (mg/dL) 197 H (70-110) mg/dL Calcium (8.4-10.2) mg/dL Total Protein (6.3-8.2) g/dL Albumin (3.5-5.0) g/dL
--- NOTE | 2024-05-02 15:55 | P.PN ---
Subjective Progress Note Date: 05/02/24 Principal diagnosis: Reason for follow-up is perforated duodenal ulcer/peritonitis Patient is a 88-year-old female presenting to the hospital abdominal pain diagnosed with the pneumoperitoneum secondary to the perforated jejunal ulcer status post laparotomy and modified Lee patch.Patient is status post reexploration with Billroth II gastrectomy with Myles-en-Y reconstruction completed on 04/12/2024, patient did have a EGD done on 05/01/2024 with evidence of moderate hiatal hernia distended stomach anastomosis was patent On today's evaluation that is 05/02/2024,the patient remains to be afebrile, patient is on 3 L cannula supplemental oxygen and denies any shortness of breath no chest pain or cough.Patient denies any worsening abdominal pain some nausea and decreased oral intake no diarrhea. Patient did have a creatinine 0.93 no CBC was done today Objective - Vital Signs Vital signs: Vital Signs Temp 99.1 F 05/02/24 06:55 Pulse 80 05/02/24 06:55 Resp 18 05/02/24 06:55 BP 150/61 05/02/24 06:55 Pulse Ox 97 05/02/24 06:55 FiO2 70 04/18/24 14:00 Intake & Output 05/01/24 05/02/24 05/02/24 18:59 06:59 18:59 Intake Total 816.25 1045 Output Total 931 540 576 Balance -114.75 505 -576 Weight 51 kg 56 kg Intake: IV 10 Intake, IV Titration 806.25 1045 Amount Mvi, Adult No.4 with Vit 806.25 K 10 ml Trace (Conc-1Ml/ Dose) 1 ml Sodium Acetate 50 meq Calcium Gluconate 1 gm Magnesium Sulfate gm 1 gm Sodium Phosphate 9 mmol Potassium Chloride 10 meq In Amino Acid 5%- D15w 1,000 ml @ 75 mls/hr IV .BY DURATION ON LICENSE OF [facility] Rx#: [id number] Sodium Acetate 50 meq 1045 Calcium Gluconate 1 gm Magnesium Sulfate gm 1 gm Sodium Phosphate 9 mmol Potassium Chloride 10 meq In Amino Acid 5%-D15w 1, 000 ml @ 75 mls/hr IV .BY DURATION [facility] Rx#: [id number] Output: Drainage 56 40 Lower Left Abdomen 56 40 Urine 875 500 576 Other: Voiding Method Indwelling Catheter Indwelling Catheter Indwelling Catheter # Voids 1 # Bowel Movements 1 1 ABP, PAP, CO, CI - Last Documented Arterial Blood Pressure 90/59 - Exam GENERAL DESCRIPTION: An elderly female lying in bed in no distress RESPIRATORY SYSTEM: Unlabored breathing , decreased breath sounds at bases HEART: S1 S2 regular rate and rhythm , ABDOMEN: Soft , mild tenderness EXTREMITIES: No edema feet - Labs CBC & Chem 7: 04/29/24 05:36 05/02/24 05:29 Labs: Abnormal Lab Results - Last 24 Hours (Table) 05/01/24 05/01/24 05/02/24 Range/Units 16:25 17:58 00:11 Sodium (137-145) mmol/L BUN (7-17) mg/dL Glucose (74-99) mg/dL POC Glucose (mg/dL) 165 H 178 H 166 H (70-110) mg/dL Calcium (8.4-10.2) mg/dL Total Protein (6.3-8.2) g/dL Albumin (3.5-5.0) g/dL 05/02/24 05/02/24 05/02/24 Range/Units 01:23 05:29 06:05 Sodium 133 L (137-145) mmol/L BUN 36 H (7-17) mg/dL Glucose 160 H (74-99) mg/dL POC Glucose (mg/dL) 194 H 190 H (70-110) mg/dL Calcium 8.1 L (8.4-10.2) mg/dL Total Protein 5.0 L (6.3-8.2) g/dL Albumin 2.3 L (3.5-5.0) g/dL 05/02/24 Range/Units 12:29 Sodium (137-145) mmol/L BUN (7-17) mg/dL Glucose (74-99) mg/dL POC Glucose (mg/dL) 197 H (70-110) mg/dL Calcium (8.4-10.2) mg/dL Total Protein (6.3-8.2) g/dL Albumin (3.5-5.0) g/dL Assessment and Plan (1) Peritonitis Current Visit: Yes Status: Acute Code(s): K65.9 - PERITONITIS, UNSPECIFIED SNOMED Code(s): 21572779 (2) Leukocytosis Current Visit: Yes Status: Acute Code(s): D72.829 - ELEVATED WHITE BLOOD CELL COUNT, UNSPECIFIED SNOMED Code(s): 232066893 (3) Perforated duodenal ulcer Current Visit: Yes Status: Acute Code(s): K26.5 - CHRONIC OR UNSPECIFIED DUODENAL ULCER WITH PERFORATION SNOMED Code(s): 62751801 Plan: 1patient presented to hospital with abdominal pain constipation has been diagnosed with the pneumoperitoneum secondary to perforated duodenal ulcer s tatus post laparotomy and repair of the perforated jejunal ulcer we will need to cover for gram-negative and yeast. 2patient did have upper GI that was suspicious for leak patient is status post reexploration with Billroth II gastrectomy with Myles-en-Y reconstruction along with abdominal cultures which are so far negative 3-patient is afebrile and the patient white count has normalized, 4patient did have EGD completed , mention patent anastomosis, patient to continue Zosyn and Eraxis however family is leaning toward hospice which may be appropriate in that case antibiotics can be safely discontinued Dictation was produced using [employer] dictation software. please excuse any grammatical, word or spelling errors. Time with Patient: Less than 30
--- NOTE | 2024-05-02 16:48 | CDI ---
Documentation Clarification Form Date: 05/02/2024 03:58:32 PM From: Rosa Ray RN, CCDS Phone: [phone] Admit Date: 04/08/2024 11:26:00 PM Patient Name: Gracie Yao Visit Number: [id number] Discharge Date: ATTENTION: The Clinical Documentation Specialists (CDI) and [facility] Coding Staff appreciate your assistance in clarifying documentation. Please respond to the clarification below the line at the bottom and electronically sign. The CDI & [facility] Coding staff will review the response and follow-up if needed. Please note: Queries are made part of the Legal Health Record. If you have any questions, please contact the author of this message via ITS. Doctor Garcia Valencia 04/12 UGI right upper quadrant compatible with leak at the site of patch placement duodenal bulb. Post 04/09/24 exploratory laparotomy Gram patch and the patent had Reexploration with Billroth II gastrectomy with Myles-en-Y reconstruction on 04/12/24. Additional clarification is requested regarding the relationship, if any, that exists between the diagnosis and the procedure. 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 She was brought to the ER. She had a CT-AP performed which showed pneumoperitoneum concerning for a perforated ulcer. 04/09/24 She had Exploratory Laparotomy, Modified Lee Patch. 04/12 ([phone]/[id number] 82 22 97.7 95% 3/L NC 04/12 Labs: WBC 37.4 K+ 3.2 BUN 52, CR 1.26 Treatment: N.P.O. per orders Protonix 40MG IVP BID Monitor I/O VS per protocol Zosyn 3.375 GM IVPB Q 8 HRS Anidulafugin 100MG IVPB Daily What relationship, if any, exists between the UGI findings of leak at the site of patch placement duodenal bulb? And the need for the Reexploration with Billroth II gastrectomy with Myles-en-Y reconstruction on 04/12/24? [ X ] UGI findings of leak at the site of patch placement duodenal bulb is a complication of surgical procedure [ ] UGI findings of leak at the site of patch placement duodenal bulb, is an expected outcome of the surgical procedure [ ] UGI findings of leak at the site of patch placement duodenal bulb is related to patients co-morbid condition(s) of [insert co-morbid dxs] & not a complication of the procedure [ ] Other please specify ____ [ ] Unable to determine (Template Last Revised: December 2020) MTDD
[2024-05-02 18:27] LABS: Glucose,Whole Blood 142 mg/dL (70-110)
[2024-05-02 23:32] LABS: Glucose,Whole Blood 156 mg/dL (70-110)
[2024-05-02] MEDS: SODIUM ACETATE IV SCH (23:37)
[2024-05-02] MEDS: MAGNESIUM SULFATE IV SCH (23:37)
[2024-05-02] MEDS: CALCIUM GLUCONATE IV SCH (23:37)
[2024-05-02] MEDS: [UNRECOGNIZED DRUG - OTHER] IV SCH (23:37)
[2024-05-03 05:49] LABS: Glucose,Whole Blood 162 mg/dL (70-110)
[2024-05-03 06:24] LABS: ALT 29 U/L (4-34); AST 65 U/L (14-36); African American GFR (CKD) 67 (>60 ml/min/1.73 sqM); Albumin 2.3 g/dL (3.5-5.0); Albumin/Globulin Ratio 0.8; Alkaline Phosphatase 123 U/L (38-126); Anion Gap 8 mmol/L; Blood Urea Nitrogen 33 mg/dL (7-17); Calcium 8.4 mg/dL (8.4-10.2); Carbon Dioxide 19 mmol/L (22-30); Chloride 111 mmol/L (98-107); Globulin 2.8 g/dL; Glucose 142 mg/dL (74-99); Magnesium 2.1 mg/dL (1.6-2.3); Non-African American GFR(CKD) 58 (>60 ml/min/1.73 sqM); Phosphorus 3.5 mg/dL (2.5-4.5); Sodium 138 mmol/L (137-145); Total Bilirubin 0.9 mg/dL (0.2-1.3); Total Protein 5.1 g/dL (6.3-8.2)
[2024-05-03 07:03] LABS: Potassium 4.9 mmol/L (3.5-5.1)
--- NOTE | 2024-05-03 08:23 | P.PN ---
Subjective Principal diagnosis: WEakness. Patient is status post perforated duodenal ulcer with repair. She was transferred to ICU secondary to shortness of breath. Thoracentesis was done. Results are noted. She seems to be in decreased respiratory distress than yesterday. No nausea, vomiting or diarrhea stated. She is n.p.o. at this time. She is struggling with urinary retention. appreciate consultants input Hospice has been consulted. We are awaiting placement Objective - Vital Signs Vital signs: Vital Signs Temp 98.1 F 05/03/24 07:00 Pulse 98 05/03/24 07:00 Resp 20 05/03/24 07:00 BP 162/75 05/03/24 07:00 Pulse Ox 98 05/03/24 07:00 FiO2 70 04/18/24 14:00 Intake & Output 05/02/24 05/03/24 05/03/24 18:59 06:59 18:59 Intake Total 1056 Output Total 645 955 Balance 411 -955 Weight 55.5 kg Intake: Intake, IV Titration 1056 Amount Mvi, Adult No.4 with Vit 1056 K 10 ml Trace (Conc-1Ml/ Dose) 1 ml Sodium Acetate 50 meq Calcium Gluconate 1 gm Magnesium Sulfate gm 1 gm Sodium Phosphate 9 mmol Potassium Chloride 10 meq In Amino Acid 5%- D15w 1,000 ml @ 75 mls/hr IV .BY DURATION [facility] Rx#: [id number] Output: Drainage 69 30 Lower Left Abdomen 60 25 Medial Abdomen 9 5 Urine 576 925 Other: Voiding Method Indwelling Catheter Indwelling Catheter # Voids 1 # Bowel Movements 1 ABP, PAP, CO, CI - Last Documented Arterial Blood Pressure 90/59 - Constitutional General appearance: Present: average body habitus, cooperative, no acute distress, thin - EENT Eyes: Absent: abnormal pupil - Neck Neck: Absent: lymphadenopathy - Respiratory Respiratory: bilateral: diminished - Cardiovascular Rhythm: irregularly irregular Heart sounds: normal: S1, S2 Abnormal Heart Sounds: Absent: S3 Gallop - Gastrointestinal General gastrointestinal: Absent: ventral hernia - Labs CBC & Chem 7: 04/29/24 05:36 05/03/24 04:12 Labs: Abnormal Lab Results - Last 24 Hours (Table) 05/02/24 05/02/24 05/02/24 Range/Units 12:29 18:22 23:28 Chloride (98-107) mmol/L Carbon Dioxide (22-30) mmol/L BUN (7-17) mg/dL Glucose (74-99) mg/dL POC Glucose (mg/dL) 197 H 142 H 156 H (70-110) mg/dL AST (14-36) U/L Total Protein (6.3-8.2) g/dL Albumin (3.5-5.0) g/dL 05/03/24 05/03/24 Range/Units 04:12 05:47 Chloride 111 H (98-107) mmol/L Carbon Dioxide 19 L (22-30) mmol/L BUN 33 H (7-17) mg/dL Glucose 142 H (74-99) mg/dL POC Glucose (mg/dL) 162 H (70-110) mg/dL AST 65 H (14-36) U/L Total Protein 5.1 L (6.3-8.2) g/dL Albumin 2.3 L (3.5-5.0) g/dL Assessment and Plan (1) Dehydration Current Visit: Yes Status: Acute Code(s): E86.0 - DEHYDRATION SNOMED Code(s): 62231260 (2) Perforated duodenal ulcer Current Visit: Yes Status: Acute Code(s): K26.5 - CHRONIC OR UNSPECIFIED DUODENAL ULCER WITH PERFORATION SNOMED Code(s): 90322824 (3) Peritonitis Current Visit: Yes Status: Acute Code(s): K65.9 - PERITONITIS, UNSPECIFIED SNOMED Code(s): 85824214 (4) Fall Current Visit: No Status: Inactive Code(s): W19.XXXA - UNSPECIFIED FALL, INITIAL ENCOUNTER SNOMED Code(s): 1101542 (5) Ribs, multiple fractures Current Visit: No Status: Inactive Code(s): S22.49XA - MULTIPLE FRACTURES OF RIBS, UNSP SIDE, INIT FOR CLOS FX SNOMED Code(s): 9811989 Plan: Discharge plan is for hospice given her age and inability to be appropriately p.o. Will continue to follow as necessary.
[2024-05-03 11:46] LABS: Glucose,Whole Blood 155 mg/dL (70-110)
[2024-05-03] MEDS: [UNRECOGNIZED DRUG - OTHER] IV SCH (14:22)
[2024-05-03] MEDS: CALCIUM GLUCONATE IV SCH (14:22)
[2024-05-03] MEDS: MAGNESIUM SULFATE IV SCH (14:22)
[2024-05-03] MEDS: SODIUM ACETATE IV SCH (14:22)
--- NOTE | 2024-05-03 15:35 | P.PN ---
Subjective Progress Note Date: 05/03/24 This is an 88-year-old female, recent history of fall about 2 weeks ago, sustained bruising to her left ribs. Patient was brought in yesterday to the ER mostly with symptoms of weakness, failure to thrive, poor oral intake, and suspected dehydration. Patient was also complaining of cough and shortness of breath, no fever no chills, no nausea no vomiting. In addition the patient had no bowel movement for the last 4 days. Apparently the patient has been experiencing intermittent episodes of confusion for the last 1 year. Workup in the ER included a CT of the abdomen and pelvis, it showed pneumoperitoneum and free fluid. Patient was felt that she has ruptured viscus, she was seen by surgery and she underwent exploratory laparotomy for her pneumoperitoneum, and she was found to have perforated duodenal ulcer. Patient had modified Lee patch and postoperatively the patient was extubated nonetheless she was admitted to the ICU, and this consult was initiated. I saw the patient in the ICU this morning, she is on 4 L nasal cannula, does not seem to be in any distress. She is already on Zosyn, and I added Diflucan. She is on LR at 125 cc/h. Her WBC count is 28.6, electrolytes are normal hemoglobin is 10.7 BUN is 97 creatinine down to 2.45 from 3.27 yesterday. Progress note dated April 10, 2024. 88-year-old female seen yesterday in consultation. She was admitted on April 08, with confusion and weakness. The patient had a repair of a perforated duodenal ulcer on April 09. Today is postop day #1. She is currently seen today in room 261. She is currently on 6 L of oxygen by nasal cannula. She has an NG tube in place. She is getting lactated Ringer's at 125 cc an hour. For atrial fibrillation with a rapid ventricular response, she was started on Cardizem drip at 5 mg an hour, and amiodarone 0.5 mg/min. No new labs today other than a glucose of 154. The labs from yesterday are reviewed. White count was 28.6. Hemoglobin 10.7, platelet count was normal. BUN and creatinine were 97 and 2.45. Chest x-ray suggested bilateral pleural effusions. Progress note dated April 11, 2024. 88-year-old female seen today in room 261. The patient was admitted on April 08, with confusion and weakness. The patient was discovered to have a perforated duodenal ulcer, and had a surgical repair performed on April 09. Today is postop day #2. The patient is currently without distress. She is on room air. NG tube remains in place. She is getting lactated Ringer's at 75 cc an hour. Because of atrial fibrillation and RVR, she continues on amiodarone 0.5 mg/min, and Cardizem at 5 mg an hour. Lab data includes a white count 34.6, hemoglobin 9.1, hematocrit 36.6, and a platelet count 442,000. Sodium 143, potassium 4.1, chlorides 113, CO2 23, BUN 71, creatinine 1.64. Glucose is 134. Albumin is 2.3. Blood cultures are currently negative. No chest x-ray today has been ordered. Progress note dated April 12, 2024. This is an 88-year-old female who is seen in room 261. The patient was admitted back on April 08, with confusion and weakness. She was discovered to have a perforated duodenal ulcer, and had surgical repair performed on April 09. Today is postoperative day #3. The patient is going to have a upper GI study today. She is getting lactated Ringer's at 75 cc an hour, 3 L of oxygen by nasal cannula, Cardizem at 5 mg an hour, and amiodarone at 0.5 mg/min. White count was 37.4, hemoglobin 11.6, hematocrit 38.5, and platelet count was normal. Sodium 145, potassium 3.2, chloride 115, CO2 24, BUN 52, creatinine 1.26. Glucose 123. Calcium 8.2. BUN 2.2. Blood cultures are currently negative. The patient's chest x-ray is stable, with some basilar atelectasis on the right. Upper GI study showed a leak, at the site of patch placement, in the duodenal bulb. Progress note dated April 13, 2024. 88-year-old female seen today in room 261. The patient is postop day #1, status post Billroth II gastrectomy, and Myles-en-Y reconstruction. The patient is currently on the ventilator. Ventilator settings include volume assist-control, rate 16, tidal volume 350, FiO2 40%, PEEP of 5. Blood gases show pO2 128, pCO2 34, pH is 7.43. The blood gases were done on 50% FiO2. The patient is on lactated Ringer's at 75 cc an hour, amiodarone 0.5 mg/min, Cardizem at 5 mg/h, and propofol, is restarted at a low rate. Current labs include a white count 34.8, hemoglobin 9.5, hematocrit 32.2, and a platelet count of 325,000. Sodium 141, potassium 4, chloride 114, CO2 21, BUN 48, creatinine 1.51. Glucose is 133. Calcium is 7. Blood cultures are negative. Chest x-ray shows in addition to endotracheal tube, and central venous line, blunting of the costophrenic angles. Progress note dated April 14, 2024. 88-year-old female seen today in room 261. She is postop day #2, status post Billroth II gastrectomy and Myles-en-Y reconstruction. The patient is on the ventilator. She was maintained on the ventilator overnight. Currently, the patient is on volume assist-control, rate 16, tidal volume 350, FiO2 30%, PEEP of 5. Blood gases show pO2 of 148, pCO2 33, pH is 7.42. Blood gases were done on 40%. The patient continues on amiodarone at 0.5 mg/min, lactated Ringer's at 75 cc an hour, propofol at 35 mcg/kg/min, and TPN at 30 cc an hour, to be increased to 55 cc an hour. Current white count is 25.2, hemoglobin 9.5, hematocrit 35.5, platelet count 362,000. Sodium 142, potassium 3.3, chlorides 112, CO2 25, BUN 50, creatinine 1.83. Albumin level was 1.9. Chest x-ray is largely unchanged. Progress note dated April 15, 2024. The patient is seen again in room 261. The patient was successfully extubated yesterday, April 14. She is currently on room air. She is receiving a saline IV at KVO, and TPN at 40 cc an hour. Current labs include a white count 18.1, hemoglobin 8.9, hematocrit 27.4, and a platelet count of 334,000. Sodium 140, potassium 3.9, chlorides 114, CO2 23, BUN 46, and creatinine 1.36. Glucose is 170. Calcium is 7.2. Phosphorus is 1.9. Magnesium is 2.0. Progress note dated April 16, 2024. The patient is seen today in room 261. She is currently on room air. She continues on amiodarone at 0.5 mg/min. She is getting TPN at 40 cc an hour, and saline at KVO. She does continue on Zosyn. All her cultures are thus far negative. She has no specific complaints today. According to the nurse, she is a bit anxious. Current labs include a sodium 139, potassium 3.9, chlorides 114, CO2 23, BUN 35, and creatinine 1.15. Glucose is 178. Calcium 7.5, phosphorus 2.3, and magnesium is normal. Culture data is negative. Venous Doppler yesterday, shows a superficial venous thrombosis involving the cephalic vein, of the left upper extremity. On today's evaluation of 04/17/2024, the patient is being seen for a follow-up. The patient is recovering from her abdominal surgery. The patient undergone exploratory laparotomy and repair of a perforated duodenal ulcer and she is postop day #8 subsequent the patient required a bit to gastrectomy and the patient is this morning, the patient has awake and alert and she is currently on med oxygen. She is in normal sinus rhythm. She is on TPN which is running at a rate of 40 cc an hour. She remains on IV Zosyn. She is using the incentive spirometer. The patient has 2 SHRUTHI drains. The medial drain has drained approximately 180 cc of serous material and the right lower abdominal drain has put out approximately 10 cc. She has had paroxysmal atrial fibrillation. She remains on amiodarone running at 0.5 mg/min. The white cell count is at 17 with a hemoglobin 9.1 and a platelet count of 431. BUN is 28 with a creatinine of 1. Electrolytes are normal limits. LFTs are normal. Blood sugar is at 183. The patient remains on empiric antibiotic coverage with IV Zosyn. She is being given oral diet today. Should be able also to take her oral medication. Surgical abdominal wound scar is dry clean and intact. He is alert and awake and communicating. 04/18/2024, the patient is on BiPAP. The patient decompensated overnight and became hypoxic. Chest x-ray was done and the patient was found to have large bilateral pleural effusion the patient was given Lasix. Noted the patient was on room air oxygen prior to her being transferred to the medical floor. At that point, the patient was placed on a BiPAP. She was started on the Lasix. This morning, she remains on BiPAP at a pressure of over 5 cm of water and FiO2 was brought up to 70%. No chest pain. She is awake and alert and she is producing adequate amount of urine output. The white cell count is currently up to On her blood work 38.9 with a hemoglobin of 9 and a platelet count of 443. BUN is 32 with a creatinine of 1.2 and sodium levels of 136. I repeated her blood work again and her white cell count is up to 40 with a hemoglobin of 8.8. The patient got transferred to the intensive care unit. Immediately, I performed an ultrasound of the chest that showed bilateral pleural effusion and thoracentesis of the right lung was done, pending follow-up chest x-ray and a total of 600 cc of pleural fluid aspirated from the right lung. Hemodynamically stable. No hypotension. Remains on TPN. Remains on IV Zosyn. Remains on Lasix 20 mg IV every 12 hours. Awake and alert and communicating. On today's evaluation of 04/19/2024, the patient seems to be more comfortable comp ared to yesterday. The patient is currently on 2 L of oxygen by nasal cannula. The patient was at the pulmonary edema and developed bilateral pleural effusions. The patient had a thoracentesis yesterday without any complication. A total of 650 cc of pleural fluid was aspirated from the right lung. A repeat chest x-ray from today showing improvement in the volume status. There is still increased interstitial markings bilaterally and small bilateral pleural effusions in the lung bases bilaterally. The patient remains on IV Lasix. The patient is producing adequate amount of urine output. Nevertheless, the fluid balance over the past 24 hours has been +500 cc. The patient remains on TPN for nutritional support. The patient is receiving TPN at a rate of 60 cc an hour. The patient is also on a combination of Zosyn and Eraxis, and vancomycin.. Oxygenation is improved and the patient is currently off the BiPAP and the patient currently is on 3 L of oxygen by nasal cannula. BUN is 40 with a creatinine of 1.2. Sodium level is 137, white cell count is improved is currently down to 21 with a hemoglobin of 7.5 and a platelet count of 393. No other significant events otherwise and the patient's condition is slightly more stable compared to yesterday. She is awake and alert and communicating. On 04/20/2024, the patient is being seen for a follow-up. The patient is doing well on 3 L of oxygen by nasal cannula. No significant respiratory distress. A follow-up chest x-ray was done today and showed improvement in volume status with small bilateral pleural effusion and some increased interstitial markings bilaterally. Nevertheless, the patient has been diuresed adequately and the patient is currently in negative fluid balance and the patient will be switched to oral Lasix. IV Lasix will be discontinued and the patient has been switched to 40 mg of Lasix on a daily basis. Remains on TPN for nutritional support. She did have a bloody bowel movement, unsure if it is melanotic. This will be monitored as the patient hemoglobin has remeasured at 8.7 on today's evaluation. The white cell count is 15.8. BUN is 48 with a creatinine 1.2 and sodium levels at 135 and a potassium level of 3.1. LFTs are all stable. Antibiotic coverage remains unchanged and the patient remains on a combination of Eraxis and Zosyn. Surgical wound site is dry clean and intact. Renal function remained stable On 04/21/2024, seen the patient for a follow-up. She is currently on room air oxygen. She is having some coffee-ground material in her mouth and I suspect ongoing GI bleed. Note that the patient's hemoglobin had dropped down to 6.6 and the patient does get transfused with packed RBC and a subsequent hemoglobin is up to 8.7 and currently is at 8.1. No acute evidence of any active upper GI bleeding. The patient is awake and alert and communicating. She remains on TPN for nutritional support. Surgical scars are dry clean and intact. Antibiotic coverage with IV Zosyn and Eraxis per IDs recommendations. As mentioned, the patient is postthoracentesis. The patient is currently on diuretics and the patient receiving Lasix 40 mg p.o. daily.. The patient is on room air oxygen. No other significant events overnight. 04/22/2024, the patient is suspected to have some ongoing low-grade GI bleed. She is still having some black stools and coughing out some coffee-ground material. Hemoglobin is at 7.1. Noted that hemoglobin has dropped slightly compared to yesterday is down from 8.1. Respiratory status is stable. She is on 2 L of O2 nasal cannula. Pulse ox 96%. Platelet count is at 397. Remains appropriate for oxygen support. Creatinine is stable at 1.2. BUN is 52 with a sodium of 135. No other significant events overnight. Remains alert and awake and communicating. No confusion. No altered mentation. 04/23/2024, the patient had another bloody neurologic bowel movement that she is coughing out coffee-ground material. I suspect ongoing GI bleed. Noted the repeat hemoglobin from yesterday was at 6.5. The patient was given a unit of packed RBC and the hemoglobin is currently at 9. Platelet counts are stable. Abdominal exam is stable. Creatinine is at 1.2 with a BUN of 53. Sodium is at 135. Repeat hemoglobin will be obtained. She remains on TPN for nutritional support. Overall respiratory status is stable. The patient is currently on 2 L of oxygen by nasal cannula with a pulse ox of 94%. General surgery is on the case. 2023 in follow-up on the regular medical floor. She is currently sitting up in a chair. Awake and alert in no acute distress. She is maintaining O2 saturations in the 90s on 2 L/min per nasal cannula. She has been afebrile. Hemodynamically stable. White count 11.6. Hemoglobin 9.7. Platelets 495. Sodium 136. Potassium 4.4. Bicarb 25. BUN 44. Creatinine 1.03. Glucose 163. Vancomycin trough 13.9. She is status post 2 units of packed red blood cells this admission. She remains on TPN for nutritional support at 60 MLS per hour. She remains on Zosyn and Eraxis. The patient is seen today April 25, 2024 in follow-up on the regular medical floor. She is currently resting fairly comfortably in bed. Awake and alert in no acute distress. She is having issues with urinary retention and a Walters catheter needs to be replaced. She is maintaining good O2 saturations in the 90s on 2 L/min per nasal cannula. She is being nourished with TPN currently at 60 MLS per hour. She remains on Zosyn and Eraxis. Continued on bronchodilators. Acute abdominal x-ray revealed no radiographic evidence for acute abdominal process. Bibasilar small pleural effusions. White count 11.5. Hemoglobin 9.5. Platelets 490. Sodium 133. Potassium 4.1. Bicarb 24. BUN 40. Creatinine 1.10. Glucose 165. Urinalysis clean. The patient is seen today April 26, 2024 in follow-up on the regular medical floor. She is currently resting in bed. Awake and alert in no acute distress. Maintaining O2 saturations in the 90s on 2 L/min per nasal cannula. White count 15.2. Hemoglobin 7.7. Platelets 426. Sodium 134. Potassium 3.8. Bicarb 27. BUN 42. Creatinine 1.27. Glucose 164. She remains on Zosyn and Eraxis. Continued on bronchodilators. Currently in a -2 L balance. Being nourished with TPN and lipids. The patient is seen today April 27, 2024 in follow-up on the regular medical floor. She is awake and alert in no acute distress. Resting flat in bed. Denies any worsening shortness of breath, cough or congestion. She is maintaining O2 saturations in the 90s on 2 L/min per nasal cannula. White count 11.0. Hemoglobin 8.2. Platelets 496. Sodium 136. Potassium 4.3. Bicarb 25. BUN 40. Creatinine 1.24. Glucose 171. She did have a PICC line placed yesterday. Triple-lumen catheter has been removed. She remains on TPN and lipids for nutrition. Tolerating a full liquid diet. Continued on Zosyn and Eraxis. Remains on bronchodilators. The patient is seen today April 28, 2024 in follow-up on the regular medical floor. She is resting comfortably in bed. Awake and alert in no acute distress. She is maintaining O2 saturations in the 90s on 3 L/min per nasal c annula. She remains afebrile. Hemodynamically stable. She is going for an upper GI series this morning. Currently nothing by mouth. Blood and pleural fluid cultures revealed no growth. White count 10.6. Hemoglobin 8.7. Platelets 576. Sodium 134. Potassium 5.0. Bicarb 24. BUN 38. Creatinine 1.13. Glucose 153. She remains on TPN and lipids. Continued on antibiotics in the form of Zosyn. Remains on Eraxis. Continued on bronchodilators. The patient is seen today April 29, 2024 in follow-up on the regular medical floor. She is resting in bed. Awake and alert in no acute distress. She is maintaining good O2 saturations in the 90s on 3 L/min per nasal cannula. Afebrile. Hemodynamically stable. Upper GI series did reveal distention of the stomach with outlet obstruction at the duodenum. The anastomosis or free spill into the small bowel through the Myles-en-Y is not identified. No extravasation evident. KUB revealed no evidence of small bowel obstruction. White count 10.6. Hemoglobin 8.5. Platelets 582. Sodium 135. Potassium 5.2. Bicarb 23. BUN 35. Creatinine 1.12. Glucose 148. She remains on Eraxis and Zosyn. Remains on TPN and lipids. According to nursing staff there are no plans for surgical intervention at this point. Hospice has been recommended. The patient is seen today April 30, 2024 in follow-up on the regular medical floor. She is awake and alert in no acute distress. Denies any significant abdominal pain currently. She is resting in bed. She is maintaining good O2 saturations in the 90s on 3 L/min per nasal cannula. She is continued on Zosyn and Eraxis. Remains on bronchodilators. Remains on TPN and lipids. Creatinine 0.97. Glucose 138. The patient is seen today May 01, 2024 in follow-up on the regular medical floor. She is resting fairly comfortably in bed. Awake and alert in no acute distress. Maintaining good O2 saturations in the 90s on 3 L/min per nasal cannula. She has been afebrile. Hemodynamically stable. She remains on Zosyn and Eraxis. She is being nourished with TPN and lipids. The plan may be for EGD and possible dilatation of the gastric outlet obstruction. Sodium 135. Potassium 4.6. Bicarb 22. BUN 42. Creatinine 0.93. Glucose 163. The patient is seen today May 02, 2024 in follow-up on the regular medical floor. She is currently awake and alert in no acute distress. Maintaining O2 saturations in the 90s on 3 L/min per nasal cannula. Afebrile, hemodynamically stable. Sodium 133. Potassium 3.8. Bicarb 22. BUN 36. Creatinine 0.93. Glucose 160. She remains on TPN and lipids. Remains on Zosyn and Eraxis. There is plans for a hospice meeting possibly today. The patient is seen today May 03, 2024 in follow-up on the regular medical floor. She is resting fairly comfortably in bed. Awake and alert in no acute distress. She denies any worsening shortness of breath, cough or congestion. She is maintaining O2 saturations in the 90s on 3 L/min per nasal cannula. Sodium 138. Potassium 4.9. Bicarb 19. BUN 33. Creatinine 0.89. Glucose 142. She remains on DuoNeb inhalations. Eraxis and Zosyn. Being nourished with TPN and lipids. Objective - Vital Signs Vital signs: Vital Signs Temp 98.5 F 05/03/24 13:35 Pulse 82 05/03/24 13:35 Resp 17 05/03/24 13:35 BP 129/56 05/03/24 13:35 Pulse Ox 96 05/03/24 13:35 FiO2 70 04/18/24 14:00 Intake & Output 05/02/24 05/03/24 05/03/24 18:59 06:59 18:59 Intake Total 1056 Output Total 645 955 0 Balance 411 -955 0 Weight 55.5 kg Intake: Intake, IV Titration 1056 Amount Mvi, Adult No.4 with Vit 1056 K 10 ml Trace (Conc-1Ml/ Dose) 1 ml Sodium Acetate 50 meq Calcium Gluconate 1 gm Magnesium Sulfate gm 1 gm Sodium Phosphate 9 mmol Potassium Chloride 10 meq In Amino Acid 5%- D15w 1,000 ml @ 75 mls/hr IV .BY DURATION [facility] Rx#: [id number] Output: Drainage 69 30 0 Lower Left Abdomen 60 25 0 Medial Abdomen 9 5 0 Urine 576 925 Other: Voiding Method Indwelling Catheter Indwelling Catheter Indwelling Catheter # Voids 1 # Bowel Movements 1 ABP, PAP, CO, CI - Last Documented Arterial Blood Pressure 90/59 - Exam GENERAL EXAM: Alert, frail 88-year-old female, resting fairly comfortably in bed, on 3 L nasal cannula, in no acute distress. HEAD: Normocephalic. EYES: Normal reaction of pupils, equal size. NOSE: Clear with pink turbinates. THROAT: No erythema or exudates. NECK: No masses, no JVD. CHEST: No chest wall deformity. LUNGS: Equal air entry with no crackles, wheeze, rhonchi or dullness. CVS: S1 and S2 normal with no audible murmur, regular rhythm. ABDOMEN: Abdominal dressing dry and intact. SHRUTHI drains in place. No guarding or rigidity. SPINE: No scoliosis or deformity SKIN: No rashes CENTRAL NERVOUS SYSTEM: No focal deficits, tone is normal in all 4 extremities. EXTREMITIES: There is no peripheral edema. No clubbing, no cyanosis. Peripheral pulses are intact. - Labs CBC & Chem 7: 04/29/24 05:36 05/03/24 04:12 Labs: Abnormal Lab Results - Last 24 Hours (Table) 05/02/24 05/02/24 05/03/24 Range/Units 18:22 23:28 04:12 Chloride 111 H (98-107) mmol/L Carbon Dioxide 19 L (22-30) mmol/L BUN 33 H (7-17) mg/dL Glucose 142 H (74-99) mg/dL POC Glucose (mg/dL) 142 H 156 H (70-110) mg/dL AST 65 H (14-36) U/L Total Protein 5.1 L (6.3-8.2) g/dL Albumin 2.3 L (3.5-5.0) g/dL 05/03/24 05/03/24 Range/Units 05:47 11:44 Chloride (98-107) mmol/L Carbon Dioxide (22-30) mmol/L BUN (7-17) mg/dL Glucose (74-99) mg/dL POC Glucose (mg/dL) 162 H 155 H (70-110) mg/dL AST (14-36) U/L Total Protein (6.3-8.2) g/dL Albumin (3.5-5.0) g/dL Assessment and Plan Assessment: Acute hypoxic respiratory failure, recovered and the patient was extubated on 04/14/2024. The patient was on room air oxygen and the patient got transferred to the medical floor to be readmitted back to the ICU the patient was weaned off the BiPAP and the patient is currently is on 3 L nasal cannula Acute leukocytosis, rule out septic event. Currently on IV Zosyn and Eraxis. Improved. The white cell count is at 10.6 Acute on chronic anemia consider the possibility of an ongoing GI bleed as the patient is also coughing out some coffee-ground material. Status post 2 units of packed red blood cells. Current hemoglobin 8.5 Status post re-exploration on April 12, 2024 with Billroth II gastrectomy, and Myles-en-Y reconstruction. The patient remains on TPN and lipids for nutritional support. Upper GI series performed April 28, 2024 reveals a stomach distention and outlet obstruction at the duodenum. EGD May 01, 2024. No further plans for surgical intervention Status post exploratory laparotomy, April 09, 2024 repair of perforated duodenal ulcer, and application of a modified Lee patch. Upper GI series, showing leak, at the site of the modified Lee patch. Acute abdominal sepsis, secondary to above and the patient is currently on IV Zosyn and Eraxis. Abdominal series from 04/25/2024 revealed no acute abdominal process Acute atrial fibrillation, with rapid ventricular response. The cardiac rhythm is back to sinus, on oral amiodarone History of splenic hematoma, without rupture. The patient is currently on no anticoagulants Acute dehydration with acute kidney injury. Recovered and the patient renal function is normal Nonanion gap metabolic acidosis, recovered Hypovolemic hyponatremia, recovered Urinary retention requiring reinsertion of indwelling Walters catheter Poor functional performance based on the above-mentioned multiple comorbidities. Plan: The patient was seen and evaluated Labs and medications reviewed Treat down the FiO2 as tolerated Assure adequate pain control Being nourished with TPN and lipids Plan is for discharge to the hospice house tomorrow I have personally seen and examined the patient, performed the documentation and the assessment and plan as written. Number of minutes spent on the visit: 10.
--- NOTE | 2024-05-03 16:26 | P.PN ---
Subjective Progress Note Date: 05/03/24 CHIEF COMPLAINT: Perforated duodenal ulcer HISTORY OF PRESENT ILLNESS: Patient is status post exploratory laparotomy with modified Lee patch for perforated duodenal ulcer on 04/09/24. Upper GI had reported a leak and patient taken back to the OR. She is status post reexploration with Billroth II gastrectomy with Myles-en-Y reconstruction on 04/12/24. Patient is status post EGD that revealed distended stomach, moderate size hiatal hernia and anastomosis is patent. Patient lying in bed comfortably. Pain controlled. She does not report any nausea or vomiting. She remains n.p.o. and on TPN for nutrition support. POA and patient have decided to proceed with hospice. PHYSICAL EXAM: VITAL SIGNS: Reviewed. ABDOMEN: Soft. Nondistended. Incisional dressing clean dry and intact. 2 SHRUTHI drains serous output ASSESSMENT: 1. Perforated duodenal ulcer 2. Gastric outlet obstruction. Slow gastric emptying on upper GI. Status post EGD revealing distended stomach, moderate size hiatal hernia and anastomosis is patent 3. Severe protein calorie malnutrition PLAN: -Patient is to be discharged to hospice house tomorrow -Official hospice consult has been placed -Continue TPN for nutrition support -Keep patient n.p.o. for now -Continue IV antibiotics -Continue IV Protonix BID -DVT prophylaxis subcu heparin Physician Turret Lathe Tender note has been reviewed by physician. Signing provider agrees with the documented findings, assessment, and plan of care. I have personally seen and examined the patient, reviewed the HUMAN RESOURCES ASSOCIATE /PAs history, exam and MDM and agree with the assessment and plan as written. Based on total visit time, I have performed more than 50% of the visit. As above: Patient complaining of persistent cough. Plans for transfer to to hospice being made. Remove both SHRUTHI drains and reshma. Discontinue TPN after this bag is complete. Objective - Vital Signs Vital signs: Vital Signs Temp 98.5 F 05/03/24 13:35 Pulse 80 05/03/24 15:52 Resp 17 05/03/24 13:35 BP 129/56 05/03/24 13:35 Pulse Ox 96 05/03/24 13:35 FiO2 70 04/18/24 14:00 Intake & Output 05/02/24 05/03/24 05/03/24 18:59 06:59 18:59 Intake Total 1056 Output Total 645 955 0 Balance 411 -955 0 Weight 55.5 kg Intake: Intake, IV Titration 1056 Amount Mvi, Adult No.4 with Vit 1056 K 10 ml Trace (Conc-1Ml/ Dose) 1 ml Sodium Acetate 50 meq Calcium Gluconate 1 gm Magnesium Sulfate gm 1 gm Sodium Phosphate 9 mmol Potassium Chloride 10 meq In Amino Acid 5%- D15w 1,000 ml @ 75 mls/hr IV .BY DURATION [facility] Rx#: [id number] Output: Drainage 69 30 0 Lower Left Abdomen 60 25 0 Medial Abdomen 9 5 0 Urine 576 925 Other: Voiding Method Indwelling Catheter Indwelling Catheter Indwelling Catheter # Voids 1 # Bowel Movements 1 ABP, PAP, CO, CI - Last Documented Arterial Blood Pressure 90/59 - Labs CBC & Chem 7: 04/29/24 05:36 05/03/24 04:12 Labs: Abnormal Lab Results - Last 24 Hours (Table) 05/02/24 05/02/24 05/03/24 Range/Units 18:22 23:28 04:12 Chloride 111 H (98-107) mmol/L Carbon Dioxide 19 L (22-30) mmol/L BUN 33 H (7-17) mg/dL Glucose 142 H (74-99) mg/dL POC Glucose (mg/dL) 142 H 156 H (70-110) mg/dL AST 65 H (14-36) U/L Total Protein 5.1 L (6.3-8.2) g/dL Albumin 2.3 L (3.5-5.0) g/dL 05/03/24 05/03/24 Range/Units 05:47 11:44 Chloride (98-107) mmol/L Carbon Dioxide (22-30) mmol/L BUN (7-17) mg/dL Glucose (74-99) mg/dL POC Glucose (mg/dL) 162 H 155 H (70-110) mg/dL AST (14-36) U/L Total Protein (6.3-8.2) g/dL Albumin (3.5-5.0) g/dL
[2024-05-03 18:07] LABS: Glucose,Whole Blood 164 mg/dL (70-110)
[2024-05-03] MEDS: BENZOCAINE/MENTHOL LOZENG 1 EACH LOZENGE MUCOUS MEM PRN (20:06)
[2024-05-03 23:41] LABS: Glucose,Whole Blood 129 mg/dL (70-110)
[2024-05-04 05:56] LABS: Glucose,Whole Blood 133 mg/dL (70-110)
[2024-05-04 06:23] LABS: ALT 31 U/L (4-34); AST 40 U/L (14-36); African American GFR (CKD) 56 (>60 ml/min/1.73 sqM); Albumin 2.5 g/dL (3.5-5.0); Albumin/Globulin Ratio 0.9; Alkaline Phosphatase 143 U/L (38-126); Anion Gap 5 mmol/L; Blood Urea Nitrogen 24 mg/dL (7-17); Calcium 8.6 mg/dL (8.4-10.2); Carbon Dioxide 26 mmol/L (22-30); Chloride 109 mmol/L (98-107); Globulin 2.8 g/dL; Glucose 118 mg/dL (74-99); Magnesium 1.9 mg/dL (1.6-2.3); Non-African American GFR(CKD) 48 (>60 ml/min/1.73 sqM); Phosphorus 3.3 mg/dL (2.5-4.5); Potassium 3.3 mmol/L (3.5-5.1); Sodium 140 mmol/L (137-145); Total Bilirubin 0.6 mg/dL (0.2-1.3); Total Protein 5.3 g/dL (6.3-8.2)
[2024-05-04 07:26] VITALS: BP 139/69; RESP 17; TEMP 97.8
--- NOTE | 2024-05-04 07:48 | P.PN ---
Subjective Progress Note Date: 05/03/24 Principal diagnosis: Reason for follow-up is perforated duodenal ulcer/peritonitis Patient is a 88-year-old female presenting to the hospital abdominal pain diagnosed with the pneumoperitoneum secondary to the perforated jejunal ulcer status post laparotomy and modified Lee patch.Patient is status post reexploration with Billroth II gastrectomy with Myles-en-Y reconstruction completed on 04/12/2024, patient did have a EGD done on 05/01/2024 with evidence of moderate hiatal hernia distended stomach anastomosis was patent On today's evaluation that is 05/03/2024, the patient continues to be afebrile, the patient is on 3 L nasal oxygen and breathing comfortably, the Pt is more awake and alert today denies having any chest pain or cough, the patient denies having any worsening abdominal pain no vomiting or any diarrhea has been reported by the nursing staff. Patient did have a creatinine 0.89 electrolytes normal liver enzymes normal no CBC was done today Objective - Vital Signs Vital signs: Vital Signs Temp 98.1 F 05/03/24 07:00 Pulse 80 05/03/24 11:48 Resp 20 05/03/24 07:00 BP 162/75 05/03/24 07:00 Pulse Ox 97 05/03/24 08:59 FiO2 70 04/18/24 14:00 Intake & Output 05/02/24 05/03/24 05/03/24 18:59 06:59 18:59 Intake Total 1056 Output Total 645 955 0 Balance 411 -955 0 Weight 55.5 kg Intake: Intake, IV Titration 1056 Amount Mvi, Adult No.4 with Vit 1056 K 10 ml Trace (Conc-1Ml/ Dose) 1 ml Sodium Acetate 50 meq Calcium Gluconate 1 gm Magnesium Sulfate gm 1 gm Sodium Phosphate 9 mmol Potassium Chloride 10 meq In Amino Acid 5%- D15w 1,000 ml @ 75 mls/hr IV .BY DURATION [facility] Rx#: [id number] Output: Drainage 69 30 0 Lower Left Abdomen 60 25 0 Medial Abdomen 9 5 0 Urine 576 925 Other: Voiding Method Indwelling Catheter Indwelling Catheter Indwelling Catheter # Voids 1 # Bowel Movements 1 ABP, PAP, CO, CI - Last Documented Arterial Blood Pressure 90/59 - Exam GENERAL DESCRIPTION: An elderly female lying in bed in no distress RESPIRATORY SYSTEM: Unlabored breathing , decreased breath sounds at bases HEART: S1 S2 regular rate and rhythm , ABDOMEN: Soft , mild tenderness EXTREMITIES: No edema feet - Labs CBC & Chem 7: 04/29/24 05:36 05/04/24 05:09 Labs: Abnormal Lab Results - Last 24 Hours (Table) 05/02/24 05/02/24 05/03/24 Range/Units 18:22 23:28 04:12 Chloride 111 H (98-107) mmol/L Carbon Dioxide 19 L (22-30) mmol/L BUN 33 H (7-17) mg/dL Glucose 142 H (74-99) mg/dL POC Glucose (mg/dL) 142 H 156 H (70-110) mg/dL AST 65 H (14-36) U/L Total Protein 5.1 L (6.3-8.2) g/dL Albumin 2.3 L (3.5-5.0) g/dL 05/03/24 05/03/24 Range/Units 05:47 11:44 Chloride (98-107) mmol/L Carbon Dioxide (22-30) mmol/L BUN (7-17) mg/dL Glucose (74-99) mg/dL POC Glucose (mg/dL) 162 H 155 H (70-110) mg/dL AST (14-36) U/L Total Protein (6.3-8.2) g/dL Albumin (3.5-5.0) g/dL Assessment and Plan (1) Peritonitis Current Visit: Yes Status: Acute Code(s): K65.9 - PERITONITIS, UNSPECIFIED SNOMED Code(s): 47237863 (2) Leukocytosis Current Visit: Yes Status: Acute Code(s): D72.829 - ELEVATED WHITE BLOOD CELL COUNT, UNSPECIFIED SNOMED Code(s): 499530886 (3) Perforated duodenal ulcer Current Visit: Yes Status: Acute Code(s): K26.5 - CHRONIC OR UNSPECIFIED DUODENAL ULCER WITH PERFORATION SNOMED Code(s): 71167817 Plan: 1patient presented to hospital with abdominal pain constipation has been diagnosed with the pneumoperitoneum secondary to perforated duodenal ulcer sta tus post laparotomy and repair of the perforated jejunal ulcer we will need to cover for gram-negative and yeast. 2patient did have upper GI that was suspicious for leak patient is status post reexploration with Billroth II gastrectomy with Myles-en-Y reconstruction along with abdominal cultures which are so far negative 3-patient is afebrile and the patient white count has normalized, 4patient did have EGD completed , mention patent anastomosis, patient to continue Zosyn and Eraxis however family is leaning toward hospice which may be appropriate we will recommend discontinue antibiotics as well as antifungal Family at the bedside questions were answered Dictation was produced using Lala dictation software. please excuse any grammatical, word or spelling errors. Time with Patient: Less than 30
--- NOTE | 2024-05-04 08:55 | P.DS ---
Providers Date of admission: 04/08/24 23:26 Attending physician: Varinder Sanders DO Consults: 04/08/24 20:57 Consult Physician Routine Consulting Provider: Dariusz Donnelly Consult Reason/Comments: leukocytosis Do you want consulting provider notified?: Yes, Notify in am 04/08/24 20:58 Consult Physician Routine Consulting Provider: Katie Min Consult Reason/Comments: JESÚS Do you want consulting provider notified?: Yes 04/08/24 23:26 Consult Physician Urgent Consulting Provider: Vishal Don Consult Reason/Comments: Intensive care management Do you want consulting provider notified?: Already Contacted 04/09/24 18:31 Consult Physician Routine Consulting Provider: Eleazar Forte Consult Reason/Comments: unable to place [place] Do you want consulting provider notified?: Yes 04/10/24 08:01 Consult Physician Routine Consulting Provider: Garcia Valencia Consult Reason/Comments: PUD Do you want consulting provider notified?: Already Contacted Primary care physician: Syed Campoverde - Discharge Diagnosis(es) (1) Dehydration Current Visit: Yes Status: Acute (2) Acute kidney injury Current Visit: Yes Status: Acute (3) Hematoma of spleen without rupture of capsule Current Visit: Yes Status: Acute (4) Perforated duodenal ulcer Current Visit: Yes Status: Acute Hospital Course: This is an 80-year-old female who was originally admitted after a fall and had an exploratory laparotomy and was found to have a perforated duodenal ulcer and a Lee patch was placed. Shortly after that was placed the Lee patch was found to be leaking and a Billroth II gastrectomy was performed by Dr. Valencia. Patient has been in and out of ICU during stay. She has required mechanical ventilation. She has remained on TPN during admission. She has had urinary retention during admission. Due to extent of patient's diagnoses, the patient and family have decided to pursue hospice care. When bed is available at [facility] patient may be discharged there. Patient seen and evaluated by nurse practitioner, physician in agreement with plan Patient Condition at Discharge: Poor Plan - Discharge Summary New Discharge Prescriptions: Discontinued traMADol HCL 50 mg PO Q4-6H PRN PRN Reason: Pain Lidocaine 5% Patch [Lidoderm] 1 patch TOPICAL DAILY Follow up Appointment(s)/Referral(s): Syed Campoverde MD [Primary Care Provider] - 1-2 days Discharge Disposition: DISCH TO HOSPICE MED FACILTY
[2024-05-04] MEDS: SCOPOLAMINE 1 MG/72 HR PATCH TRANSDERM STA (11:41)
[2024-05-04 11:55] VITALS: PULSE 81
[2024-05-04 13:20] VITALS: BMI 20.6
--- NOTE | 2024-05-04 14:57 | P.PN ---
Subjective Progress Note Date: 05/04/24 Principal diagnosis: Reason for follow-up is perforated duodenal ulcer/peritonitis Patient is a 88-year-old female presenting to the hospital abdominal pain diagnosed with the pneumoperitoneum secondary to the perforated jejunal ulcer status post laparotomy and modified Lee patch.Patient is status post reexploration with Billroth II gastrectomy with Myles-en-Y reconstruction completed on 04/12/2024, patient did have a EGD done on 05/01/2024 with evidence of moderate hiatal hernia distended stomach anastomosis was patent On today's evaluation that is 05/04/2024, Patient is afebrile patient is currently on 3 L nasal cannula oxygen and denies having any shortness of breath, the patient denies any chest pain or cough, the patient denies any nausea vomiting or abdominal pain however the patient seem to be confused and not a very good historian. Patient did have a creatinine 1.03 potassium is 3.3 no CBC was done today Objective - Vital Signs Vital signs: Vital Signs Temp 97.8 F 05/04/24 07:00 Pulse 81 05/04/24 11:53 Resp 17 05/04/24 07:00 BP 139/69 05/04/24 07:00 Pulse Ox 97 05/04/24 08:48 FiO2 70 04/18/24 14:00 Intake & Output 05/03/24 05/04/24 05/04/24 18:59 06:59 18:59 Output Total 620 275 Balance -620 -275 Weight 54.5 kg Output: Drainage 20 Lower Left Abdomen 20 Medial Abdomen 0 Urine 600 275 Uretheral (Walters) 275 Other: Voiding Method Indwelling Catheter Indwelling Catheter # Bowel Movements 1 ABP, PAP, CO, CI - Last Documented Arterial Blood Pressure 90/59 - Exam GENERAL DESCRIPTION: An elderly female lying in bed in no distress RESPIRATORY SYSTEM: Unlabored breathing , decreased breath sounds at bases HEART: S1 S2 regular rate and rhythm , ABDOMEN: Soft , mild tenderness EXTREMITIES: No edema feet - Labs CBC & Chem 7: 04/29/24 05:36 05/04/24 05:09 Labs: Abnormal Lab Results - Last 24 Hours (Table) 05/03/24 05/03/24 05/04/24 Range/Units 18:06 23:39 05:09 Potassium 3.3 L (3.5-5.1) mmol/L Chloride 109 H (98-107) mmol/L BUN 24 H (7-17) mg/dL Glucose 118 H (74-99) mg/dL POC Glucose (mg/dL) 164 H 129 H (70-110) mg/dL AST 40 H (14-36) U/L Alkaline Phosphatase 143 H (38-126) U/L Total Protein 5.3 L (6.3-8.2) g/dL Albumin 2.5 L (3.5-5.0) g/dL 05/04/24 Range/Units 05:54 Potassium (3.5-5.1) mmol/L Chloride (98-107) mmol/L BUN (7-17) mg/dL Glucose (74-99) mg/dL POC Glucose (mg/dL) 133 H (70-110) mg/dL AST (14-36) U/L Alkaline Phosphatase (38-126) U/L Total Protein (6.3-8.2) g/dL Albumin (3.5-5.0) g/dL Assessment and Plan (1) Peritonitis Current Visit: Yes Status: Acute Code(s): K65.9 - PERITONITIS, UNSPECIFIED SNOMED Code(s): 47844634 (2) Leukocytosis Current Visit: Yes Status: Acute Code(s): D72.829 - ELEVATED WHITE BLOOD CELL COUNT, UNSPECIFIED SNOMED Code(s): 871616922 (3) Perforated duodenal ulcer Current Visit: Yes Status: Acute Code(s): K26.5 - CHRONIC OR UNSPECIFIED DUODENAL ULCER WITH PERFORATION SNOMED Code(s): 94377277 Plan: 1patient presented to hospital with abdominal pain constipation has been diagnosed with the pneumoperitoneum secondary to perforated duodenal ulcer status post laparotomy and repair of the perforated jejunal ulcer we will need to cover for gram-negative and yeast. 2patient did have upper GI that was suspicious for leak patient is status post reexploration with Billroth II gastrectomy with Myles-en-Y reconstruction along with abdominal cultures which are so far negative 3-patient is afebrile and the patient white count has normalized, 4patient did have EGD completed , mention patent anastomosis, patient to continue Zosyn and Eraxis however family is leaning toward hospice which may be appropriate we will go ahead and discontinue antibiotics as no need for continuation of antibiotics and hospice Dictation was produced using dragon dictation software. please excuse any gramma tical, word or spelling errors. Time with Patient: Less than 30
--- NOTE | 2024-05-04 15:00 | P.DS ---
Providers Date of admission: 04/08/24 23:26 Expected date of discharge: 05/04/24 Attending physician: Varinder Sanders DO Consults: 04/08/24 20:57 Consult Physician Routine Consulting Provider: Dariusz Donnelly Consult Reason/Comments: leukocytosis Do you want consulting provider notified?: Yes, Notify in am 04/08/24 20:58 Consult Physician Routine Consulting Provider: Katie Min Consult Reason/Comments: JESÚS Do you want consulting provider notified?: Yes 04/08/24 23:26 Consult Physician Urgent Consulting Provider: Vishal Don Consult Reason/Comments: Intensive care management Do you want consulting provider notified?: Already Contacted 04/09/24 18:31 Consult Physician Routine Consulting Provider: Eleazar Forte Consult Reason/Comments: unable to place [place] Do you want consulting provider notified?: Yes 04/10/24 08:01 Consult Physician Routine Consulting Provider: Garcia Valencia Consult Reason/Comments: PUD Do you want consulting provider notified?: Already Contacted Primary care physician: Syed Campoverde Hospital Course: Discharge diagnosis 1. Perforated duodenal ulcer 2. Gastric outlet obstruction. Slow gastric emptying on upper GI. Status post EGD revealing distended stomach, moderate size hiatal hernia and anastomosis is patent 3. Severe protein calorie malnutrition Hospital course This is a 88-year-old female who was brought into the ER for weakness, failure to thrive, decreased oral intake and dehydration. A CT scan of the abdomen had showed pneumoperitoneum. She was taken to the OR and status post exploratory laparotomy with modified Lee patch for perforated duodenal ulcer on 04/09/2024. Patient did develop a leak and then required to be taken back to the OR on 04/12/2024 for reexploration with Billroth II gastrectomy with Myles-en-Y reconstruction. Patient had a slow gastric emptying on upper GI. EGD had revealed distended stomach, moderate size hiatal hernia and anastomosis is patent. There are concerns for gastric outlet obstruction. Patient unable to tolerate diet due to risks of aspiration. Patient's CODE STATUS is DNR. Patient and POA have chosen to proceed with hospice and comfort care. Patient to be discharged to [facility] today. Please refer to chart for any further details. Physician Physical Education Specialist note has been reviewed by physician. Signing provider agrees with the documented findings, assessment, and plan of care. Patient Condition at Discharge: Stable Plan - Discharge Summary New Discharge Prescriptions: Discontinued traMADol HCL 50 mg PO Q4-6H PRN PRN Reason: Pain Lidocaine 5% Patch [Lidoderm] 1 patch TOPICAL DAILY Follow up Appointment(s)/Referral(s): Syed Campoverde MD [Primary Care Provider] - As Needed Patient Instructions/Handouts: Hospice (DC) Discharge Disposition: DISCH TO HOSPICE MED FACILTY
--- NOTE | 2024-05-05 23:39 | CDI ---
Documentation Clarification Form Date: 05/05/2024 11:25:37 PM From: Daina Osorio Phone: Admit Date: 04/08/2024 11:26:00 PM Patient Name: Gracie Yao Visit Number: [id number] Discharge Date: 05/04/2024 02:30:00 PM ATTENTION: The Clinical Documentation Specialists (CDI) and [facility] Coding Staff appreciate your assistance in clarifying documentation. Please respond to the clarification below the line at the bottom and electronically sign. The CDI & [facility] Coding staff will review the response and follow-up if needed. Please note: Queries are made part of the Legal Health Record. If you have any questions, please contact the author of this message via ITS. Doctor/Provider: Garcia Valencia The final diagnosis of the pathology report states: Severe activeduodenitiswithulceration, perforation, and serosal fibrousadhesionswith fibrin purulent serositis withulceratedsmall bowel with focalnecrosis. Coding guidelines do not allow coding professionals to code based on pathology results; therefore, clarification is requested. History/risk factors: 80yo F, dehydration, ATN, Hematomaof spleenwithoutruptureof capsule, Perforated duodenal ulcer, hypokalemia from diuresis, metabolic acidosis, hypophosphatemia, AHRF, severe PCM, PAF, sepsis, ACDH Clinical Indicators: Patient was placed on IV fluids in form of normal saline - CT of the abdomen and pelvis later resulted and revealed evidence of pneumoperitoneum likely secondary to perforated duodenal ulcer, ascites, fluid adjacent to spleen suggesting hemorrhagic content and therefore splenic subcapsular hematoma. There are couple offracturedadjacent ribs Treatment: Lee patch w Small Intestine, Resection.Duodenal ulcer; perforated duodenal ulcer. Exploratory laparotomy with repair ofduodenal ulcer. Please clarify if you agree with the pathology report diagnosis of severe activeduodenitiswithulceration, perforation, and serosal fibrousadhesions, serositis withulceratedsmall bowel with focalnecrosis: [X ] Yes [ ] No [ ] Other (please specify) [ ] Unable to determine (Template Last Revised: December 2020) MTDD
--- NOTE | 2024-05-05 23:50 | CDI ---
Documentation Clarification Form Date: 05/05/2024 11:40:47 PM From: Daina Osorio Phone: Admit Date: 04/08/2024 11:26:00 PM Patient Name: Gracie Yao Visit Number: [id number] Discharge Date: 05/04/2024 02:30:00 PM ATTENTION: The Clinical Documentation Specialists (CDI) and [facility] Coding Staff appreciate your assistance in clarifying documentation. Please respond to the clarification below the line at the bottom and electronically sign. The CDI & [facility] Coding staff will review the response and follow-up if needed. Please note: Queries are made part of the Legal Health Record. If you have any questions, please contact the author of this message via ITS. Doctor/Provider: Varinder Sanders DO Your patient has an abnormal lab value: A1C 6.3. Please clarify if there is an additional diagnosis and/or clinical significance related to this value. History/Risk Factors: 80yo F, dehydration, ATN, hematoma of spleen, perforated duodenal ulcer, hypokalemia from diuresis, metabolic acidosis, hypophosphatemia, AHRF, severe PCM, PAF, sepsis, ACDH Clinical indicators: Glucose: 04/08 128 04/09 115-128 04/10 154- 159 04/11 118-155 Treatment: monitored Is there an additional diagnosis and/or clinical significance related to the above lab result/information? [ ] Hyperglycemia due to (please specify): [ ] Prediabetes [ ] Diabetes Type 2 with Hyperglycemia [ ] No additional diagnosis/Not clinically significant [ ] Other, please specify [ ] Unable to determine (Template Last Revised: November 2020) Unable to determine MTDD
== END 2024-05-04 14:30 | disposition hospice, inpatient (51) | DRG 853 ==
LOC: EC 17:08 → 2SICU 23:26 → 3SCARD 04-17 14:00 → 2SICU 04-18 12:45 → 4SSUR 04-19 18:24
PROVIDERS: ADMIT Surgery; ATTEND Surgery
PROC: 3E0T3BZ Introduction of Anesthetic Agent into Peripheral Nerves and Plexi, Percutaneous Approach (ICD-10-PCS; 2024-04-09)
PROC: 0D9670Z Drainage of Stomach with Drainage Device, Via Natural or Artificial Opening (ICD-10-PCS; 2024-04-09)
PROC: 0DQ90ZZ Repair Duodenum, Open Approach (ICD-10-PCS; principal; 2024-04-09 00:30)
PROC: 0T9B70Z Drainage of Bladder with Drainage Device, Via Natural or Artificial Opening (ICD-10-PCS; 2024-04-10)
PROC: 3E033RZ Introduction of Antiarrhythmic into Peripheral Vein, Percutaneous Approach (ICD-10-PCS; 2024-04-10)
PROC: 0DB60ZZ Excision of Stomach, Open Approach (ICD-10-PCS; 2024-04-12)
PROC: 0D160ZA Bypass Stomach to Jejunum, Open Approach (ICD-10-PCS; 2024-04-12)
PROC: 02HV33Z Insertion of Infusion Device into Superior Vena Cava, Percutaneous Approach (ICD-10-PCS; 2024-04-12)
PROC: 3E0436Z Introduction of Nutritional Substance into Central Vein, Percutaneous Approach (ICD-10-PCS; 2024-04-13)
PROC: 0W993ZZ Drainage of Right Pleural Cavity, Percutaneous Approach (ICD-10-PCS; 2024-04-18)
PROC: 02HV33Z Insertion of Infusion Device into Superior Vena Cava, Percutaneous Approach (ICD-10-PCS; 2024-04-26)
DX: A41.50 Gram-negative sepsis, unspecified (principal); E43 Unspecified severe protein-calorie malnutrition; I50.33 Acute on chronic diastolic (congestive) heart failure; J96.01 Acute respiratory failure with hypoxia; N17.0 Acute kidney failure with tubular necrosis; K26.1 Acute duodenal ulcer with perforation; K65.1 Peritoneal abscess; K55.021 Focal (segmental) acute infarction of small intestine; F03.911 Unspecified dementia, unspecified severity, with agitation; T85.638A Leakage of other specified internal prosthetic devices, implants and grafts, initial encounter; K31.1 Adult hypertrophic pyloric stenosis; R18.8 Other ascites; J91.8 Pleural effusion in other conditions classified elsewhere; E87.20 Acidosis, unspecified; I82.612 Acute embolism and thrombosis of superficial veins of left upper extremity; D62 Acute posthemorrhagic anemia; S22.42XA Multiple fractures of ribs, left side, initial encounter for closed fracture; S36.029A Unspecified contusion of spleen, initial encounter; J98.11 Atelectasis; E87.1 Hypo-osmolality and hyponatremia; T83.091A Other mechanical complication of indwelling urethral catheter, initial encounter; I11.0 Hypertensive heart disease with heart failure; F03.90 Unspecified dementia, unspecified severity, without behavioral disturbance, psychotic disturbance, mood disturbance, and anxiety; I48.0 Paroxysmal atrial fibrillation; Z66 Do not resuscitate; Z51.5 Encounter for palliative care; K66.8 Other specified disorders of peritoneum; R62.7 Adult failure to thrive; E83.39 Other disorders of phosphorus metabolism; E86.0 Dehydration; H91.8X9 Other specified hearing loss, unspecified ear; N13.9 Obstructive and reflux uropathy, unspecified; N35.92 Unspecified urethral stricture, female; K59.00 Constipation, unspecified; K44.9 Diaphragmatic hernia without obstruction or gangrene; K20.90 Esophagitis, unspecified without bleeding; E86.1 Hypovolemia; R32 Unspecified urinary incontinence; G89.18 Other acute postprocedural pain; E87.6 Hypokalemia; K31.89 Other diseases of stomach and duodenum; K66.0 Peritoneal adhesions (postprocedural) (postinfection); N89.5 Stricture and atresia of vagina; W19.XXXA Unspecified fall, initial encounter; Y73.8 Miscellaneous gastroenterology and urology devices associated with adverse incidents, not elsewhere classified; Y73.3 Surgical instruments, materials and gastroenterology and urology devices (including sutures) associated with adverse incidents; Z87.891 Personal history of nicotine dependence; Z91.81 History of falling; Z68.20 Body mass index [BMI] 20.0-20.9, adult
CPT/HCPCS: 36415; 36573; 36600; 43235; 64488; 70450; 71045; 71046; 74018; 74022; 74176; 74240; 76604; 76770; 80048; 80053; 80202; 81001; 81003; 82140; 82272; 82330; 82550; 82805; 82945; 83036; 83605; 83615; 83690; 83735; 84100; 84132; 84157; 84478; 84484; 85025; 85027; 85610; 86850; 86900; 86901; 86920; 87040; 87070; 87075; 87205; 87636; 88108; 88305; 88307; 88309; 88342; 89050; 93005; 93306; 94002; 94003; 94640; 94660; 94760; 96361; 96374; 96375; 96376; 99285